=== PATIENT | female | born 1965 | race Caucasian/White ===

== ENCOUNTER 2019-11-04 06:00 | Outpatient (RCR) | payer MEDICARE, SELFPAY | END 2019-11-04 23:59 | disposition home or self-care (01) | LOC: SOT 06:00 | PROVIDERS: Family Provider Family Medicine; PCP Family Medicine; Referring Provider Family Medicine; Visit Provider Family Medicine | DX: M24.20 Disorder of ligament, unspecified site (principal); I67.89 Other cerebrovascular disease; Z99.3 Dependence on wheelchair | CPT/HCPCS: 97112; 97167 ==

== ENCOUNTER 2020-01-21 13:17 | Outpatient (CLI) | payer MEDICARE, SELFPAY ==
--- NOTE | 2020-01-21 13:25 | MM_ITS ---
WS: [id number] BILATERAL DIGITAL SCREENING MAMMOGRAPHY WITH CAD CLINICAL INFORMATION: SCREENING HISTORY: Screening mammogram. No current complaints. COMPARISON: None. TECHNIQUE: Bilateral CC and MLO views. FINDINGS: Scattered fibroglandular densities bilaterally. No suspicious focal mass, asymmetry, calcifications, or architectural distortion. No evidence of malignancy. 11 mm asymmetric density posterior depth left breast best seen on the CC view. Recommend spot compression views and ultrasound if persistent. Additional 13 mm asymmetric density posterior depth right breast best seen on the cc view is indeterm inate. Recommend spot compression views and ultrasound if persistent. MM/[place] [id number] IMPRESSION: BI-RADS: 0-Incomplete: Need additional imaging evaluation FOLLOW UP: Need Additional Imaging
== END 2020-01-21 13:18 | disposition home or self-care (01) ==
LOC: RADSHAW 13:17
PROVIDERS: Family Provider Family Medicine; PCP Family Medicine; Visit Provider Family Medicine
DX: Z12.31 Encounter for screening mammogram for malignant neoplasm of breast (principal)
CPT/HCPCS: 77067

== ENCOUNTER 2020-01-28 09:12 | Outpatient (CLI) | payer MEDICARE, SELFPAY ==
--- NOTE | 2020-01-28 09:34 | US_ITS ---
WS: [id number] Bilateral breast ultrasound, 01/28/2020 Clinical Data: BILAT ASYMMETRIES Comparison: Mammogram, 01/28/2020 Findings: The right breast was scanned in the medial aspect from 1:00 to 5:00. No masses are seen. Only normal breast tissue could be seen. The left breast was imaged in 6:00 to 8:00. Only a small cyst was imaged which measured 0.33 x 0.35 x 0.52 cm. Only normal breast tissue could be seen. There were no masses. US/US breast BI limited* [id number] Impression: 1. Negative bilateral breast ultrasound. 2. Recommend annual screening mammograms. BIRADS: 2-Benign FOLLOW UP: 1 Year Follow-up
--- NOTE | 2020-01-28 09:34 | MM_ITS ---
WS: [id number] Bilateral diagnostic digital mammogram, 01/28/2020 Clinical Data: BILAT ASYMMETRIES Comparison: 01/21/2020 Findings: Compression views of the right breast in the CC projection and ML view showed that the density seen o n the mammogram is not imaged. This probably represents asymmetric breast tissue. Compression views of the left breast in the CC projection and the ML view reveal a density with great est diameter 1.6 cm in the medial aspect of the left breast. This has a border with no spiculations. There are no associated calcifications. MM/[place] [id number] Impression: 1. Negative right breast with no definite nodule. 2. Small nodule with benign characteristics in the medial aspect of the left br east. 3. Bilateral breast ultrasound will be performed. BIRADS: 2-Benign FOLLOW UP: Need Additional Imaging The CAD furnace checker was used.
== END 2020-01-28 09:13 | disposition home or self-care (01) ==
LOC: RADSHAW 09:14
PROVIDERS: Family Provider Family Medicine; PCP Family Medicine; Visit Provider Nurse Practitioner Family
DX: N64.89 Other specified disorders of breast (principal)
CPT/HCPCS: 76642; 77066

== ENCOUNTER 2020-03-20 17:28 | Emergency (ER) | payer MEDICARE, SELFPAY ==
--- NOTE | 2020-03-20 17:40 | XR_ITS ---
WS: [id number] Portable AP upright chest, 03/20/2020 Clinical Data: AMS Comparison: Portable chest, 09/21/2019 Findings: No nodules, masses or effusions are seen. The heart is normal. The pulmonary vascularity is not increased. No pneumonia or pneumothorax is seen. There are orthopedic anchors in the greater tub erosity and inferior glenoid rim. XR/XR chest 1V portable [id number] Impression: Negative chest.
--- NOTE | 2020-03-20 17:41 | W.ED.NAVMDI ---
HPI - Nausea/Vomiting/Diarrhea General: Chief complaint: Abdominal Pain Stated complaint: N/V Time Seen by Provider: 03/20/20 17:29 Source: patient and EMS Mode of arrival: EMS Limitations: altered mental status History of Present Illness: HPI Narrative: Patient is a 55-year-old female who presents to ED today via EMS for a complaint of nausea and vomiting beginning today. Patient was treated with IV and ODT Zofran in route. Blood glucose by EMS was 250s. Patient has a history of a CVA with chronic left-sided deficits/non-ambulatory, hypertension, and diabetes. She tells me she has not been taking her medications as prescribed stating she just forgets to take them or does not want to take them. Patient reports some mild abdominal pain. She has not been running fevers. She has not noticed any changes in bowel movements. Patient is chronically incontinent of urine due to a neurogenic bladder following the CVA. She several months ago had a suprapubic catheter but this was removed. MD elicited complaint: nausea, vomiting and abdominal pain Onset (ago): hour(s) Description of vomiting: watery Associated nausea: Yes Associated abdominal pain: Yes Location of pain: Diffuse Associated symtoms: Reports nausea; Denies change in vision, chest pain, fatigue, headache(s), malaise, palpitations or syncope Review of Systems Const: Denies: fever(s), chills, body aches, fatigue or malaise Eyes: Denies: change in vision, blurry vision, photophobia, floaters or seeing flashes ENMT: Denies: throat pain, enlarged tonsils or odynophagia Card: Denies: chest pain, palpitations, irregular heart rhythm, edema, lightheadedness, syncope, pre-syncope or orthopnea Resp: Denies: dyspnea, productive cough, non-productive cough, hemoptysis or chest congestion GI: Reports: abdominal pain, nausea and vomiting; Denies: hematemesis, coffee ground emesis, heartburn or diarrhea : Reports: urinary incontinence (chronic); Denies: hematuria Musc: Denies: neck pain or back pain Neuro: Denies: headache(s) PFS ED PFSH: Medical History (Updated 03/20/20 @ 20:46 by LIBERTY Guadalupe) Acute lower UTI Neurogenic bladder Family History Father Cancer Lymphoma Mother CAD (coronary artery disease) Diabetes Chronic kidney disease (CKD) Social History Smoking and tobacco status: current every day smoker Alcohol intake: never Marital status: Current occupational status: disabled Physical Exam Const: COMMON NORMALS: patient oriented x3 and alert NUTRITIONAL APPEARANCE: obese ORIENTATION/CONSCIOUSNESS: Yes oriented to person, Yes oriented to place and Yes oriented to time OTHER: pt upon arrival appeared nauseated and lethargic; this improved greatly throughout her stay HENMT: COMMON NORMALS: normocephalic and atraumatic HEAD & SCALP: normocephalic and atraumatic Resp: COMMON NORMALS: normal respiratory effort and clear to auscultation bilaterally AUSCULTATION: clear to auscultation bilaterally Cardio: COMMON NORMALS: regular rate and regular rhythm RATE: regular rate RHYTHM: regular rhythm GI: COMMON NORMALS: Normal to inspection, nondistended, normoactive bowel sounds present, Soft to palpation, non-tender, No hepatosplenomegaly present and no masses PALPATION: Yes Soft to palpation and Yes No hepatosplenomegaly present Extremity: COMMON NORMALS: normal to inspection Neuro: JENNIFER COMA SCALE: document GCS findings [place] coma scale eye opening: Spontaneous [place] coma scale verbal response: Orientated [place] coma scale motor response: Obey commands [place] coma scale total score: 15 COMMON NORMALS: patient oriented x3 SENSORIUM/ORIENTATION: Yes alert, Yes oriented to person, Yes oriented to place and Yes oriented to time OTHER: chronic deficits from previous CVA Skin: COMMON NORMALS: no rashes or lesions noted GENERAL SKIN EXAM: no rashes or lesions noted Course Vital Signs: Vital signs: Vital Signs Temperature 97.6 F 03/20/20 18:04 Pulse Rate 89 03/20/20 21:41 Respiratory Rate 14 03/20/20 21:41 Blood Pressure 153/93 03/20/20 21:41 Pulse Oximetry 95 03/20/20 21:41 MDM - Nausea/Vomiting/Diarrhea MDM Narrative: Medical decision making narrative: Patient has not had any further episodes of vomiting during her stay after given IV Reglan. Upon arrival patient appeared very lethargic and nauseated. She initially was a very poor historian therefore and altered mental work-up was started. Patient CT head showing no acute findings. Patient's mental status greatly improved throughout her stay and is now able to provide a very thorough history. Lab work today shows mildly elevated BUN/Cr at 25/1.3. This is pretty close to patient's baseline as she has stage III chronic kidney disease. Glucose in the 270s again patient admittedly not taking her medications as she is supposed to. Her bicarb is normal and serum ketones negative. Initial troponin elevated however her delta was insignificant. She does have an obvious UTI on her UA. She was treated with IV Rocephin for this and will be treated with oral Ceftin at home. She has primary care follow-up this week for reevaluation. Strict return to ED precautions given. Lab Data: Labs: Lab Results 03/20/20 03/20/20 03/20/20 Range/Units 17:53 17:53 17:53 WBC 10.2 H (4.0-10.0) 10^3/ uL RBC 5.69 H (4.1-5.3) 10^6/u L Hgb 16.0 H (11.5-15.3) g/dL Hct 49.8 H (37.0-47.0) % MCV 87.5 (81-99) fL MCH 28.1 (28.0-34.0) pg MCHC 32.1 (30.0-36.0) g/dL RDW 13.0 (12.1-15.1) % Plt Count 297 (130-400) 10^3/c mm MPV 9.8 (7.4-10.4) fL Neut % (Auto) 82.9 % Lymph % (Auto) 11.1 % Rush % (Auto) 4.3 % Eos % (Auto) 0.3 % Baso % (Auto) 0.7 % Neut # (Auto) 8.4 H (1.8-7.7) 10^3/u L Lymph # (Auto) 1.1 (0.8-4.8) 10^3/u L Rush # (Auto) 0.4 (0.2-0.9) 10^3/u L Eos # (Auto) 0.0 (0.0-0.8) 10^3/u L Baso # (Auto) 0.1 (0.0-0.1) 10^3/u L Nucleated RBC % (a uto) 0 % Nucleated RBCs # 0.0 /100WBC Specimen Type Sample Site ABG pH (7.35-7.45) ABG pCO2 (35-45) mmHg ABG pO2 (80.0-100.0) mmH g ABG HCO3 (22-26) mmol/L ABG O2 Saturation ABG Base Excess (-2.0-2.0) mmol/ L Mathieu Test A-a O2 Gradient (5-10) mmHg Hematocrit (37-47) % Hgb O2 Saturation (95-100) % Carboxyhemoglobin (0.4-20.1) %THgb Methemoglobin (0.4-1.5) % Total Hemoglobin (12-16) g/dL Ionized Calcium (1.1-1.4) mmol/L O2 Delivery Device Cosmetology Educator ID Sodium 138 (136-145) mmol/L Potassium 4.6 (3.5-5.1) mmol/L Chloride 101 (98-107) mmol/L Carbon Dioxide 22 (22-29) mmol/L Anion Gap 19.6 H (5-19) BUN 25 H (6-20) mg/dL Creatinine 1.3 H (0.5-0.9) mg/dL GFR Calculation 42.4 L (90-130) mL/min Glucose 270 H (65-115) mg/dL Calculated Osmolal ity 292 (285-295) mOsm/k g Lactate 1.5 (0.5-2.2) mmol/L Calcium 9.8 (8.5-10.5) mg/dL Total Bilirubin 0.4 (0.15-1.2) mg/dL AST 15 (0-32) U/L ALT 14 (0-33) U/L Alkaline Phosphata se 85 (35-105) IU/L Troponin T Gen 5 n g/L (0-10) ng/mL Troponin T 120 Min clark's point (0-10) ng/mL Delta Troponin T (0-10) ABS# Total Protein 7.6 (6.6-8.7) g/dL Albumin 4.4 (3.5-5.2) g/dL Globulin 3.2 (1.3-4.6) g/dL Lipase 25 (13-60) U/L Urine Color (Yellow) Urine Appearance (CLEAR) Urine pH (5-7) Ur Specific Gravit y (1.005-1.030) Urine Protein (Negative) Urine Glucose (UA) (Normal) Urine Ketones (Negative) Urine Blood (Negative) Urine Nitrate (Negative) Urine Bilirubin (NEGATIVE) Urine Urobilinogen (Negative) mg/dL Ur Leukocyte Holly ase (Negative) Urine RBC (0-2) /hpf Urine WBC (0-5) /hpf Ur Squamous Epith Cells (0-5) Urine Bacteria (NONE) Urine Mucus Serum Ketones (Negative) 03/20/20 03/20/20 03/20/20 Range/Units 17:53 17:53 17:55 WBC (4.0-10.0) 10^3/ uL RBC (4.1-5.3) 10^6/u L Hgb (11.5-15.3) g/dL Hct (37.0-47.0) % MCV (81-99) fL MCH (28.0-34.0) pg MCHC (30.0-36.0) g/dL RDW (12.1-15.1) % Plt Count (130-400) 10^3/c mm MPV (7.4-10.4) fL Neut % (Auto) % Lymph % (Auto) % Rush % (Auto) % Eos % (Auto) % Baso % (Auto) % Neut # (Auto) (1.8-7.7) 10^3/u L Lymph # (Auto) (0.8-4.8) 10^3/u L Rush # (Auto) (0.2-0.9) 10^3/u L Eos # (Auto) (0.0-0.8) 10^3/u L Baso # (Auto) (0.0-0.1) 10^3/u L Nucleated RBC % (a uto) % Nucleated RBCs # /100WBC Specimen Type Arterial Sample Site Brachial, right ABG pH 7.33 L (7.35-7.45) ABG pCO2 44.5 (35-45) mmHg ABG pO2 63.3 L (80.0-100.0) mmH g ABG HCO3 23.2 (22-26) mmol/L ABG O2 Saturation 91.4 ABG Base Excess -3.0 L (-2.0-2.0) mmol/ L Mathieu Test Pos A-a O2 Gradient 29.7 H (5-10) mmHg Hematocrit 51.0 H (37-47) % Hgb O2 Saturation 89.5 L (95-100) % Carboxyhemoglobin 1.4 (0.4-20.1) %THgb Methemoglobin 0.7 (0.4-1.5) % Total Hemoglobin 16.7 H (12-16) g/dL Ionized Calcium 1.2 (1.1-1.4) mmol/L O2 Delivery Device Room air Cosmetology Educator ID [email or web address] Sodium 140.0 (136-145) mmol/L Potassium 4.7 (3.5-5.1) mmol/L Chloride (98-107) mmol/L Carbon Dioxide (22-29) mmol/L Anion Gap (5-19) BUN (6-20) mg/dL Creatinine (0.5-0.9) mg/dL GFR Calculation (90-130) mL/min Glucose 273.0 H (65-115) mg/dL Calculated Osmolal ity (285-295) mOsm/k g Lactate (0.5-2.2) mmol/L Calcium (8.5-10.5) mg/dL Total Bilirubin (0.15-1.2) mg/dL AST (0-32) U/L ALT (0-33) U/L Alkaline Phosphata se (35-105) IU/L Troponin T Gen 5 n g/L 27 H (0-10) ng/mL Troponin T 120 Min clark's point (0-10) ng/mL Delta Troponin T (0-10) ABS# Total Protein (6.6-8.7) g/dL Albumin (3.5-5.2) g/dL Globulin (1.3-4.6) g/dL Lipase (13-60) U/L Urine Color (Yellow) Urine Appearance (CLEAR) Urine pH (5-7) Ur Specific Gravit y (1.005-1.030) Urine Protein (Negative) Urine Glucose (UA) (Normal) Urine Ketones (Negative) Urine Blood (Negative) Urine Nitrate (Negative) Urine Bilirubin (NEGATIVE) Urine Urobilinogen (Negative) mg/dL Ur Leukocyte Holly ase (Negative) Urine RBC (0-2) /hpf Urine WBC (0-5) /hpf Ur Squamous Epith Cells (0-5) Urine Bacteria (NONE) Urine Mucus Serum Ketones Negative (Negative) 03/20/20 03/20/20 Range/Units 19:00 20:06 WBC (4.0-10.0) 10^3/ uL RBC (4.1-5.3) 10^6/u L Hgb (11.5-15.3) g/dL Hct (37.0-47.0) % MCV (81-99) fL MCH (28.0-34.0) pg MCHC (30.0-36.0) g/dL RDW (12.1-15.1) % Plt Count (130-400) 10^3/c mm MPV (7.4-10.4) fL Neut % (Auto) % Lymph % (Auto) % Rush % (Auto) % Eos % (Auto) % Baso % (Auto) % Neut # (Auto) (1.8-7.7) 10^3/u L Lymph # (Auto) (0.8-4.8) 10^3/u L Rush # (Auto) (0.2-0.9) 10^3/u L Eos # (Auto) (0.0-0.8) 10^3/u L Baso # (Auto) (0.0-0.1) 10^3/u L Nucleated RBC % (a uto) % Nucleated RBCs # /100WBC Specimen Type Sample Site ABG pH (7.35-7.45) ABG pCO2 (35-45) mmHg ABG pO2 (80.0-100.0) mmH g ABG HCO3 (22-26) mmol/L ABG O2 Saturation ABG Base Excess (-2.0-2.0) mmol/ L Mathieu Test A-a O2 Gradient (5-10) mmHg Hematocrit (37-47) % Hgb O2 Saturation (95-100) % Carboxyhemoglobin (0.4-20.1) %THgb Methemoglobin (0.4-1.5) % Total Hemoglobin (12-16) g/dL Ionized Calcium (1.1-1.4) mmol/L O2 Delivery Device Cosmetology Educator ID Sodium (136-145) mmol/L Potassium (3.5-5.1) mmol/L Chloride (98-107) mmol/L Carbon Dioxide (22-29) mmol/L Anion Gap (5-19) BUN (6-20) mg/dL Creatinine (0.5-0.9) mg/dL GFR Calculation (90-130) mL/min Glucose (65-115) mg/dL Calculated Osmolal ity (285-295) mOsm/k g Lactate (0.5-2.2) mmol/L Calcium (8.5-10.5) mg/dL Total Bilirubin (0.15-1.2) mg/dL AST (0-32) U/L ALT (0-33) U/L Alkaline Phosphata se (35-105) IU/L Troponin T Gen 5 n g/L (0-10) ng/mL Troponin T 120 Min clark's point 26.24 H (0-10) ng/mL Delta Troponin T -0.76 L (0-10) ABS# Total Protein (6.6-8.7) g/dL Albumin (3.5-5.2) g/dL Globulin (1.3-4.6) g/dL Lipase (13-60) U/L Urine Color Yellow (Yellow) Urine Appearance Cloudy (CLEAR) Urine pH 5 (5-7) Ur Specific Gravit y 1.020 (1.005-1.030) Urine Protein 2+ H (Negative) Urine Glucose (UA) 1+ (Normal) Urine Ketones 1+ H (Negative) Urine Blood 2+ H (Negative) Urine Nitrate Negative (Negative) Urine Bilirubin Neg (NEGATIVE) Urine Urobilinogen Norm (Negative) mg/dL Ur Leukocyte Holly ase 2+ H (Negative) Urine RBC 0-4 H (0-2) /hpf Urine WBC 40-55 H (0-5) /hpf Ur Squamous Epith Cells 5-10 H (0-5) Urine Bacteria 3+ H (NONE) Urine Mucus Trace Serum Ketones (Negative) Imaging Data^: CT Head: Radiologist's impression: [address] [place] [address] CT Scan Report Signed Patient: Erika Shen Unit #: [id number] : 1965 Age/Sex: 55 / F ADM Date: 03/20/20 Loc: ER Room/Bed: Attending Dr: Ordering Provider/Ordering MD: Latonia Shultz Date of Service: 03/20/20 Procedure(s): CT head wo con* [id number] Accession Number(s): [id number] Report Number: [id number] PROCEDURE INFORMATION: Exam: CT Head Without Contrast Exam date and time: 03/20/2020 6:12 PM Age: 55 years old Clinical indication: Altered mental status/memory loss; Confusion or disorientation; Patient HX: AMS - lethargy - n/v TECHNIQUE: Imaging protocol: Computed tomography of the head without contrast. Radiation optimization: All CT scans at this facility use at least one of these dose optimization techniques: automated exposure control; mA and/or kV adjustment per patient size (includes targeted exams where dose is matched to clinical indication); or iterative reconstruction. COMPARISON: CT head wo con* [id number] 09/07/2019 12:36 PM FINDINGS: Old-appearing lacunar infarction in each thalamus. There is moderate low density in the bilateral periventricular white matter which may represent chronic small vessel ischemic disease in the appropriate clinical setting. The possibility of superimposed acute infarctions cannot be excluded; consider MRI brain (including diffusion images) for further assessment if clinically warranted and if patient has no contraindication to MRI. There are prominent intracranial arterial calcifications. Ventricles do not appear significantly dilated. No depressed calvarial fracture is demonstrated. Visualized paranasal sinuses and mastoid air cells demonstrate no significant opacification. CT/CT head wo con* [id number] IMPRESSION: Probable chronic ischemic changes as discussed above. Total DLP: 915.46 mGy-cm Radiation Dose CTDIVOL = (mGy): DLP = 915.46 (mGy-cm) Dictated By: Jasmin Robin MD Signed By: Jasmin Robin MD Signed Date/Time: 03/20/201842 DD/ 41 CXR: My impression: NAD Discharge Plan Discharge Patient Disposition: Home, Self-Care Clinical Impression: Acute cystitis with hematuria, Neurogenic bladder Condition: Stable Prescriptions: New cefuroxime axetil 500 mg tablet 500 mg PO BID 10 Days Qty: 20 RF: 0 Zofran 4 mg tablet 4 mg PO Q6H PRN (Reason: nausea and vomiting) Qty: 20 RF: 0 No Action amlodipine [Norvasc] 10 mg tablet 10 mg PO QDAY RF: 0 baclofen 10 mg tablet 10 mg PO TID RF: 0 clopidogrel [Plavix] 75 mg tablet 75 mg PO QDAY RF: 0 dantrolene 25 mg capsule 100 mg PO BID RF: 0 escitalopram oxalate 20 mg tablet 20 mg PO QDAY RF: 0 metformin [Glucophage] 500 mg tablet 500 mg PO BID RF: 0 pravastatin 20 mg tablet 20 mg PO QDAY RF: 0 solifenacin [Vesicare] 5 mg tablet 5 mg PO QDAY RF: 0 fenofibrate nanocrystallized [Tricor] 48 mg tablet 48 mg PO QDAY RF: 0 topiramate [Topamax] 100 mg tablet 100 mg PO QDAY RF: 0 metoprolol succinate 50 mg tablet extended release 24 hr 50 mg PO BID RF: 0 Discharge Orders: Discharge Order (Routine); Ordered 03/20/20 Ordered By: Latonia Shultz Referrals: Erika Lopez MD [Primary Care Provider] - Patient Instructions: Urinary Tract Infection in Women (ED) Activity Restrictions/Additional Instructions: As discussed try taking the Zofran 15-20 minutes prior to taking your antibiotic dose to help keep it down. You need to return to the emergency department if you are not able to hold down your antibiotics due to repetitive episodes of vomiting, fevers greater than 100.4, generally feeling ill, or any other concerns you may have. Otherwise please follow-up with your PCP Dr. Lopez at your scheduled appointment this week. Please start taking your diabetes and high blood pressure medications like you are supposed to. Coding Level of Care Code ED Demand Planning Analyst for Ish Sawyer
[2020-03-20] MEDS: metoclopramide 5 mg/mL SDV 2 mL 10 MG IVP (17:59)
[2020-03-20 18:01] LABS: Basophils # 0.1 10^3/uL (0.0-0.1); Basophils % 0.7 %; Eosinophils % 0.3 %; Hematocrit 49.8 % (37.0-47.0); Lymphocytes # 1.1 10^3/uL (0.8-4.8); Lymphocytes % 11.1 %; Mean Corpuscular HGB Conc 32.1 g/dL (30.0-36.0); Mean Corpuscular Hemoglobin 28.1 pg (28.0-34.0); Mean Corpuscular Volume 87.5 fL (81-99); Mean Platelet Volume 9.8 fL (7.4-10.4); Monocytes # 0.4 10^3/uL (0.2-0.9); Monocytes % 4.3 %; Neutrophils # 8.4 10^3/uL (1.8-7.7); Neutrophils % 82.9 %; Nucleated Red Blood Cells % 0 %; Platelet Count 297 10^3/cmm (130-400); Red Blood Count 5.69 10^6/uL (4.1-5.3); White Blood Count 10.2 10^3/uL (4.0-10.0)
[2020-03-20] MEDS: metoprolol tartrate 1 mg/1 mL SDV 5 mL 5 MG IV (18:01)
[2020-03-20 18:04] VITALS: BP 194/106; PULSE 75; RESP 16; TEMP 36.4; O2SAT 94; BMI 30.2
[2020-03-20 18:08] LABS: ABG PCO2 44.5 mmHg (35-45); ABG PH Result 7.33 (7.35-7.45); Alveolar-Arterial Oxygen Gradi 29.7 mmHg (5-10); Blood Gas Allen Test Pos; Blood Gas Sample Site Brachial, right; Blood Gas Sample Type Arterial; Carboxyhemoglobin 1.4 %THgb (0.4-20.1); HCO3 ABG 23.2 mmol/L (22-26); HGB O2 Sat 89.5 % (95-100); Ionized Calcium Level - ABG 1.2 mmol/L (1.1-1.4); Methemoglobin 0.7 % (0.4-1.5); Oxygen Device ROOM AIR; Oxygen Saturation ABG 91.4; PO2 ABG 63.3 mmHg (80.0-100.0); Potassium Level - ABG 4.7 mmol/L (3.5-5.0); Total Hemoglobin 16.7 g/dL (12-16)
[2020-03-20 18:10] LABS: Ketone (Acetest) Serum Negative (Negative)
[2020-03-20 18:15] LABS: Lactate (Lactic Acid level) 1.5 mmol/L (0.5-2.2)
[2020-03-20 18:16] LABS: Alanine Aminotransferase 14 U/L (0-33); Albumin Level 4.4 g/dL (3.5-5.2); Alkaline Phosphatase 85 IU/L (35-105); Anion Gap 19.6 (5-19); Aspartate Amino Transferase 15 U/L (0-32); Blood Urea Nitrogen 25 mg/dL (6-20); Calcium 9.8 mg/dL (8.5-10.5); Carbon Dioxide 22 mmol/L (22-29); Chloride 101 mmol/L (98-107); Globulin 3.2 g/dL (1.3-4.6); Glomerular Filtration Rate 42.4 mL/min (90-130); Glucose 270 mg/dL (65-115); Lipase 25 U/L (13-60); Osmolality Calculated 292 mOsm/kg (285-295); Potassium 4.6 mmol/L (3.5-5.1); Sodium 138 mmol/L (136-145); Total Bilirubin 0.4 mg/dL (0.15-1.2); Total Protein 7.6 g/dL (6.6-8.7)
[2020-03-20 19:01] LABS: Troponin T (5th) Once 27 ng/mL (0-10)
[2020-03-20 19:03] VITALS: BP 185/98; PULSE 85; RESP 14; O2SAT 95
[2020-03-20] MEDS: insulin regular-human 100 units/1 mL 5 UNIT IVP (19:22)
[2020-03-20] MEDS: sodium chloride 0.9% 1,000 ML 999 ML IV (19:24)
[2020-03-20 19:54] LABS: Bilirubin Urine Neg (NEGATIVE); Blood Urine 2+ (Negative); Glucose Urine UA 1+ (Normal); Ketones Urine 1+ (Negative); Nitrate Urine Negative (Negative); Protein Urine 2+ (Negative); Urine Appearance Cloudy (CLEAR); Urine Color Yellow (Yellow); Urobilinogen Urine Norm (Negative); pH Urine 5 (5-7)
[2020-03-20 19:55] LABS: Add Urine Microscopic? YES; Leukocyte Esterase Urine 2+ (Negative)
[2020-03-20 19:56] LABS: Add Urine Culture? Yes; Bacteria Urine 3+; Mucus Urine TRACE; RBC Urine 0-4 /hpf (0-2); WBC Urine 40-55 /hpf (0-5)
[2020-03-20] MEDS: amlodipine 10 mg Tablet PO (20:03)
[2020-03-20 20:06] VITALS: BP 205/110; PULSE 81; RESP 20; O2SAT 94
[2020-03-20 20:25] LABS: Troponin 5 2HR 26.24 ng/mL (0-10)
[2020-03-20 20:39] LABS: Troponin 5 2HR Delta -0.76 ABS# (0-10)
[2020-03-20] MEDS: cefTRIAXone 1,000 MG in sodium chloride 0.9% (plus) 50 ML 100 MG IV (20:53)
[2020-03-20 20:57] VITALS: BP 209/114; PULSE 84; RESP 19; O2SAT 94
--- NOTE | 2020-03-20 21:11 | ECG_ITS ---
Measurements Intervals [place] Rate: 74 P: 40 ME: 174 QRS: -23 QRSD: 85 T: 23 QT: 410 QTc: 457 SINUS RHYTHM BORDERLINE LEFT AXIS DEVIATION [QRS AXIS < -20] MODERATE VOLTAGE CRITERIA FOR LVH, CONSIDER NORMAL VARIANT Compared to ECG 09/21/2019 23:03:20 T-wave abnormality no longer present Electronically Signed On 03-21-2020 20:22:39 CDT by Ernestine Toth M.D. [email or web address]
[2020-03-20] MEDS: hyDRALAzine 20 mg/mL INJ 1 mL 10 MG IVP (21:12)
[2020-03-20 21:41] VITALS: BP 153/93; PULSE 89; RESP 14; O2SAT 95
== END 2020-03-20 22:05 | disposition home or self-care (01) ==
PROVIDERS: Emergency Provider Physician Assistant; Family Provider Family Medicine; PCP Family Medicine
DX: N30.01 Acute cystitis with hematuria (principal); N31.9 Neuromuscular dysfunction of bladder, unspecified; Z79.02 Long term (current) use of antithrombotics/antiplatelets; Z79.84 Long term (current) use of oral hypoglycemic drugs; Z87.440 Personal history of urinary (tract) infections; F17.210 Nicotine dependence, cigarettes, uncomplicated
CPT/HCPCS: 12345; 36415; 36600; 70450; 71045; 80051; 80053; 81001; 82009; 82810; 83605; 83690; 83986; 84484; 85025; 87040; 87077; 87086; 87186; 87205; 93005; 96365; 96375; 99283; 99284; J0360; J0696; J1815; J2765; J3490; J7030

== ENCOUNTER 2020-10-12 16:18 | Inpatient (IN) | payer MEDICARE, SELFPAY ==
[2020-10-12] VITALS (11 sets, daily range): BP systolic 161–230; BP diastolic 100–138; PULSE 87–99; RESP 16–20; TEMP 36.6–37; O2SAT 94–97; BMI 30.2
--- NOTE | 2020-10-12 16:29 | CTR_ITS ---
PROCEDURE INFORMATION: Exam: CT Head Without Contrast Exam date and time: 10/12/2020 4:50 PM Age: 55 years old Clinical indication: Pain; Altered mental status/memory loss and dizziness and visual disturbance; Headache; Patient HX: HX of stroke; Additional info: AMS TECHNIQUE: Imaging protocol: Computed tomography of the head without contrast. Radiation optimization: All CT scans at this facility use at least one of these dose optimization techniques: automated exposure control; mA and/or kV adjustment per patient size (includes targeted exams where dose is matched to clinical indication); or iterative reconstruction. COMPARISON: CT head wo con* [id number] 03/20/2020 6:10 PM RADIATION DOSE METRICS: Total DLP (mGy-cm): 1070.47 FINDINGS: Brain: Old bilateral thalamic lacunar infarctions. Old tiny left lentiform nucleus lacunar infarction. Moderate small vessel ischemic disease with senile periventricular leukomalacia. No evidence of active or acute intracranial pathologic process, hemorrhage, or trauma. No mass effect. No midline shift. Empty sella turcica. Cerebral ventricles: No ventriculomegaly. Bones/joints: Unremarkable. No acute fracture. Paranasal sinuses: Visualized sinuses are unremarkable. No fluid levels. Mastoid air cells: Visualized mastoid air cells are well aerated. Soft tissues: Unremarkable. CT/CT head wo con* [id number] IMPRESSION: No evidence of active or acute intracranial pathologic process, hemorrhage, or trauma. Radiation Dose CTDIVOL = (mGy): DLP = 1070.47 (mGy-cm)
--- NOTE | 2020-10-12 16:29 | XRR_ITS ---
PROCEDURE INFORMATION: Exam: XR Chest, 1 View Exam date and time: 10/12/2020 4:45 PM Age: 55 years old Clinical indication: Cough and shortness of breath; Additional info: AMS TECHNIQUE: Imaging protocol: XR of the chest Views: 1 view. COMPARISON: CR XR chest 1V portable [id number] 03/20/2020 6:17 PM FINDINGS: Tubes, catheters and devices: Post surgical suture anchors at the right shoulder. Surgical foreshortening of the distal right clavicle. Lungs: Unremarkable. No consolidation. Pleural space: Unremarkable. No pleural effusion. No pneumothorax. Heart/Mediastinum: Stable heart size. Bones/joints: The 5th degenerative change of the spine. XR/XR chest 1V portable [id number] IMPRESSION: Stable chest without acute process.
--- NOTE | 2020-10-12 16:30 | ECG_ITS ---
[facility] Test Date: 2020-10-12 Pat Name: Erika Shen Department: Room: Gender: Female Supervisor General: : 1965 Requested By: Ariana Lucero Order Number: [id number] Anton MD: Gloria Lyles M.D. Measurements Intervals [place] Rate: 97 P: 33 KS: 168 QRS: -21 QRSD: 85 T: 54 QT: 360 QTc: 458 Interpretive Statements SINUS RHYTHM POSSIBLE LEFT ATRIAL ENLARGEMENT [-0.1mV P WAVE IN V1/V2] POSSIBLE LEFT VENTRICULAR HYPERTROPHY [VOLTAGE CRITERIA PLUS LAE OR QRS WIDENING] POSSIBLE ANTERIOR MYOCARDIAL INFARCTION [30 ms Q WAVE IN V3/V4, OR R < 0.2 mV IN V4], OF INDETERMINATE AGE Compared to ECG 03/20/2020 19:28:35 Myocardial infarct finding now present Electronically Signed On 10-12-2020 19:42:41 MARKETING DATABASE COORDINATOR by Gloria Lyles M.D. [id number]
--- NOTE | 2020-10-12 16:36 | ED_ITS ---
Documented by User: Ariana Lucero MD 10/12/20 17:11 HPI - Altered Mental Status General: Chief Complaint: Altered Mental Status Stated Complaint: AMS, DIZZY, DOUBLE VISION Time Seen by Provider: 10/12/20 16:25 Source: patient and EMS Mode of arrival: EMS Limitations: no limitations History of Present Illness: HPI narrative: 55-year-old female has had a history of stroke in the past and has deficits from previous stroke. 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 Patient states that she often wakes up in the morning with double vision. Family called EMS morning she woke up at 10 and had not seem quite right all day. Patient here is able answer all my questions appropriately knows her name where she is and the date. She states she has had double vision this morning that lasted longer than normal. She denies any slurred speech. She denies any increased weakness. Denies any worsening or improving factors. Associated symptoms: Deny depression Review of Systems Const: Denies: fever(s), chills, body aches or change in appetite Eyes: Reports: blurry vision ENMT: Denies: throat pain or dental pain Card: Denies: chest pain Resp: Denies: dyspnea GI: Denies: abdominal pain, nausea, vomiting or diarrhea : Denies: dysuria Musc: Denies: neck pain or back pain Skin/Breast: Denies: rash Neuro: Denies: headache(s) Psych: Denies: depression Sterling/Lymph: Denies: easy bruising All/Imm: Denies: urticaria PFSH ED PFSH: Medical History (Updated 10/12/20 @ 20:51 by Falguni Lakhani) Acute depression Acute lower UTI CVA (cerebral vascular accident) Neurogenic bladder Renal failure Suprapubic catheter Type 2 diabetes mellitus without complications Surgical History (Updated 10/12/20 @ 20:40 by Hillary Silva MD) H/O detached retina repair H/O oral surgery S/P appendectomy S/P cataract surgery S/P cholecystectomy S/P knee surgery S/P shoulder surgery Family History Father Cancer Lymphoma Mother CAD (coronary artery disease) Diabetes Chronic kidney disease (CKD) Social History Smoking and tobacco status: current every day smoker Alcohol intake: never Marital status: Current occupational status: disabled Course Vital Signs: Vital signs: Vital Signs Temperature 98.4 F 10/12/20 16:18 Pulse Rate 97 10/12/20 20:13 Respiratory Rate 18 10/12/20 20:13 Blood Pressure 208/100 10/12/20 20:13 Pulse Oximetry 95 10/12/20 20:13 MDM - Altered Mental Status Lab Data: Labs: Lab Results 10/12/20 10/12/20 10/12/20 Range/Units 16:23 16:23 17:04 WBC 7.3 (4.0-10.0) 10^3/ uL RBC 4.99 (4.1-5.3) 10^6/u L Hgb 14.0 (11.5-15.3) g/dL Hct 41.9 (37.0-47.0) % MCV 84.0 (81-99) fL MCH 28.1 (28.0-34.0) pg MCHC 33.4 (30.0-36.0) g/dL RDW 12.7 (12.1-15.1) % Plt Count 289 (130-400) 10^3/c mm MPV 9.8 (7.4-10.4) fL Neut % (Auto) 66.1 % Lymph % (Auto) 24.8 % [place] % (Auto) 5.4 % Eos % (Auto) 2.2 % Baso % (Auto) 0.8 % Neut # (Auto) 4.79 (1.8-7.7) 10^3/u L Lymph # (Auto) 1.8 (0.8-4.8) 10^3/u L [place] # (Auto) 0.4 (0.2-0.9) 10^3/u L Eos # (Auto) 0.2 (0.0-0.8) 10^3/u L Baso # (Auto) 0.1 (0.0-0.1) 10^3/u L Nucleated RBC % (a uto) 0 % Nucleated RBCs # 0.0 /100WBC Specimen Type Arterial Sample Site left radial ABG pH 7.37 (7.35-7.45) ABG pCO2 39.5 (35-45) mmHg ABG pO2 81.8 (80.0-100.0) mmH g ABG HCO3 22.6 (22-26) mmol/L ABG Base Excess -2.5 L (-2.0-2.0) mmol/ L Mathieu Test Pos Hematocrit 43.3 (37-47) % O2 Delivery Device Ra FiO2 21.0 % Mortgage Processing Manager ID Glc Sodium 133 L (136-145) mmol/L Potassium 4.8 (3.5-5.1) mmol/L Chloride 99 (98-107) mmol/L Carbon Dioxide 22 (22-29) mmol/L Anion Gap 16.8 (5-19) BUN 36 H (6-20) mg/dL Creatinine 1.7 H (0.5-0.9) mg/dL GFR Calculation 31.1 L (90-130) mL/min Glucose 429 H (65-115) mg/dL Calculated Osmolal ity 303 H (285-295) mOsm/k g Calcium 8.9 (8.5-10.5) mg/dL Magnesium 1.7 (1.7-2.3) mg/dL Total Bilirubin 0.3 (0.15-1.2) mg/dL AST 9 (0-32) U/L ALT 11 (0-33) U/L Alkaline Phosphata se 124 H (35-105) IU/L Total Protein 6.0 L (6.6-8.7) g/dL Albumin 3.5 (3.5-5.2) g/dL Globulin 2.5 (1.3-4.6) g/dL Urine Color (Yellow) Urine Appearance (CLEAR) Urine pH (5-7) Ur Specific Gravit y (1.005-1.030) Urine Protein (Negative) Urine Glucose (UA) (Normal) Urine Ketones (Negative) Urine Blood (Negative) Urine Nitrate (Negative) Urine Bilirubin (Negative) Urine Urobilinogen (Negative) mg/dL Ur Leukocyte Holly ase (Negative) Urine RBC (0-2) /hpf Urine WBC (0-5) /hpf Ur Squamous Epith Cells (0-5) /hpf Amorphous Sediment /hpf Urine Bacteria (NONE) /hpf Ethyl Alcohol < 10 (0-10) mg/dL 10/12/20 Range/Units 17:15 WBC (4.0-10.0) 10^3/ uL RBC (4.1-5.3) 10^6/u L Hgb (11.5-15.3) g/dL Hct (37.0-47.0) % MCV (81-99) fL MCH (28.0-34.0) pg MCHC (30.0-36.0) g/dL RDW (12.1-15.1) % Plt Count (130-400) 10^3/c mm MPV (7.4-10.4) fL Neut % (Auto) % Lymph % (Auto) % [place] % (Auto) % Eos % (Auto) % Baso % (Auto) % Neut # (Auto) (1.8-7.7) 10^3/u L Lymph # (Auto) (0.8-4.8) 10^3/u L [place] # (Auto) (0.2-0.9) 10^3/u L Eos # (Auto) (0.0-0.8) 10^3/u L Baso # (Auto) (0.0-0.1) 10^3/u L Nucleated RBC % (a uto) % Nucleated RBCs # /100WBC Specimen Type Sample Site ABG pH (7.35-7.45) ABG pCO2 (35-45) mmHg ABG pO2 (80.0-100.0) mmH g ABG HCO3 (22-26) mmol/L ABG Base Excess (-2.0-2.0) mmol/ L Mathieu Test Hematocrit (37-47) % O2 Delivery Device FiO2 % Mortgage Processing Manager ID Sodium (136-145) mmol/L Potassium (3.5-5.1) mmol/L Chloride (98-107) mmol/L Carbon Dioxide (22-29) mmol/L Anion Gap (5-19) BUN (6-20) mg/dL Creatinine (0.5-0.9) mg/dL GFR Calculation (90-130) mL/min Glucose (65-115) mg/dL Calculated Osmolal ity (285-295) mOsm/k g Calcium (8.5-10.5) mg/dL Magnesium (1.7-2.3) mg/dL Total Bilirubin (0.15-1.2) mg/dL AST (0-32) U/L ALT (0-33) U/L Alkaline Phosphata se (35-105) IU/L Total Protein (6.6-8.7) g/dL Albumin (3.5-5.2) g/dL Globulin (1.3-4.6) g/dL Urine Color Yellow (Yellow) Urine Appearance Hazy A (CLEAR) Urine pH 5 (5-7) Ur Specific Gravit y 1.015 (1.005-1.030) Urine Protein 2+ H (Negative) Urine Glucose (UA) 4+ H (Normal) Urine Ketones Negative (Negative) Urine Blood Neg (Negative) Urine Nitrate Positive H (Negative) Urine Bilirubin Neg (Negative) Urine Urobilinogen Norm (Negative) mg/dL Ur Leukocyte Holly ase 1+ H (Negative) Urine RBC None (0-2) /hpf Urine WBC 15-25 H (0-5) /hpf Ur Squamous Epith Cells 5-10 H (0-5) /hpf Amorphous Sediment 1+ /hpf Urine Bacteria 4+ H (NONE) /hpf Ethyl Alcohol (0-10) mg/dL EKG Data^: EKG 1: Attestation: I personally reviewed and interpreted this EKG as follows: EKG interpretation date: 10/12/20 EKG interpretation time: 16:27 Interpretation: nsr hr [address] or t wave abnormalities qrs 85 qtc 414 Discharge Plan Discharge Patient Disposition: Placed in Observation Clinical Impression: Altered mental status Condition: Stable Prescriptions: No Action amlodipine [Norvasc] 10 mg tablet 10 mg PO DAILY@1400 RF: 0 clopidogrel [Plavix] 75 mg tablet 75 mg PO DAILY@1400 RF: 0 escitalopram oxalate 20 mg tablet 20 mg PO DAILY@1399 RF: 0 pravastatin 20 mg tablet 80 mg PO DAILY@1400 RF: 0 solifenacin [Vesicare] 5 mg tablet 5 mg PO DAILY@1400 RF: 0 fenofibrate nanocrystallized [Tricor] 48 mg tablet 48 mg PO DAILY@1400 RF: 0 topiramate [Topamax] 100 mg tablet 100 mg PO DAILY@1400 RF: 0 metoprolol succinate 50 mg tablet extended release 24 hr 50 mg PO BID RF: 0 cyclobenzaprine 10 mg tablet 10 mg PO TID PRN (Reason: muscle spasms) RF: 0 ondansetron HCl [Zofran] 4 mg tablet 4 mg PO Q6H PRN (Reason: nausea and vomiting) Qty: 20 RF: 0 Sign Out Sign Out Data: Patient Sign Out occurred on 10/12/20 at 18:16. Patient's care was discussed, and care was transferred from to Falguni Lakhani. Coding Level of Care Code ED Affiliate Marketing Specialist for Chg [employer] Documented by User: Falguni Lakhani 10/12/20 20:51 HPI - Altered Mental Status General: Chief Complaint: Altered Mental Status Stated Complaint: AMS, DIZZY, DOUBLE VISION Time Seen by Provider: 10/12/20 16:25 PFSH ED PFSH: Medical History (Updated 10/12/20 @ 20:51 by Falguni Lakhani) Acute depression Acute lower UTI CVA (cerebral vascular accident) Neurogenic bladder Renal failure Suprapubic catheter Type 2 diabetes mellitus without complications Surgical History (Updated 10/12/20 @ 20:40 by Hillary Silva MD) H/O detached retina repair H/O oral surgery S/P appendectomy S/P cataract surgery S/P cholecystectomy S/P knee surgery S/P shoulder surgery Family History Father Cancer Lymphoma Mother CAD (coronary artery disease) Diabetes Chronic kidney disease (CKD) Social History Smoking and tobacco status: current every day smoker Alcohol intake: never Marital status: Current occupational status: disabled Course Vital Signs: Vital signs: Vital Signs Temperature 98.4 F 10/12/20 16:18 Pulse Rate 97 10/12/20 20:13 Respiratory Rate 18 10/12/20 20:13 Blood Pressure 208/100 10/12/20 20:13 Pulse Oximetry 95 10/12/20 20:13 MDM - Altered Mental Status MDM Narrative: Medical decision making narrative: 1829 -Case turned over to me at change of shift from Dr. Lucero. Please see his note for his history, physical exam and medical decision-making notes. To me the patient has no complaints other than knee pain at this time. She appears alert to person, place, time and situation. Patient states that she does get headaches and have double vision sometimes upon awakening and has for quite some time. At this point her CT of her head is normal, her EKG is normal there is a urinalysis that looks infected but there is mild contamination with this. Patient also compla ins of right-sided numbness and continued double vision. Patient is concerned she may have had another stroke. Patient is adamant that the symptoms have been present upon awakening and have never resolved. Allowed a CTA of the head and neck as well to her evaluation. 2048 -patient symptoms continue. She has declined any medicine for her headache. If this is possibly a new stroke she complains of right-sided numbness I do not want to treat her blood pressure at this time. Patient was a wake-up stroke if that is indeed the diagnosis so she would not be a TPA candidate and her CT of the head and neck does not show any sign of intervene able clot. The patient had possible pneumonitis findings on the CT of the head and neck so I have placed a Covid test as well. Patient denies any pulmonary complaints. Overall the patient is disheveled and appears not very well For her. She is very dirty and do not believe there caring for her adequately at home. I shared this and all the case with Dr. Silva he agrees to go admit the patient for further evaluation and care and will move forward from here. Lab Data: Attestation: I reviewed the patient's lab results. Labs: Lab Results 10/12/20 10/12/20 10/12/20 Range/Units 16:23 16:23 17:04 WBC 7.3 (4.0-10.0) 10^3/ uL RBC 4.99 (4.1-5.3) 10^6/u L Hgb 14.0 (11.5-15.3) g/dL Hct 41.9 (37.0-47.0) % MCV 84.0 (81-99) fL MCH 28.1 (28.0-34.0) pg MCHC 33.4 (30.0-36.0) g/dL RDW 12.7 (12.1-15.1) % Plt Count 289 (130-400) 10^3/c mm MPV 9.8 (7.4-10.4) fL Neut % (Auto) 66.1 % Lymph % (Auto) 24.8 % [place] % (Auto) 5.4 % Eos % (Auto) 2.2 % Baso % (Auto) 0.8 % Neut # (Auto) 4.79 (1.8-7.7) 10^3/u L Lymph # (Auto) 1.8 (0.8-4.8) 10^3/u L [place] # (Auto) 0.4 (0.2-0.9) 10^3/u L Eos # (Auto) 0.2 (0.0-0.8) 10^3/u L Baso # (Auto) 0.1 (0.0-0.1) 10^3/u L Nucleated RBC % (a uto) 0 % Nucleated RBCs # 0.0 /100WBC Specimen Type Arterial Sample Site left radial ABG pH 7.37 (7.35-7.45) ABG pCO2 39.5 (35-45) mmHg ABG pO2 81.8 (80.0-100.0) mmH g ABG HCO3 22.6 (22-26) mmol/L ABG Base Excess -2.5 L (-2.0-2.0) mmol/ L Mathieu Test Pos Hematocrit 43.3 (37-47) % O2 Delivery Device Ra FiO2 21.0 % Mortgage Processing Manager ID Glc Sodium 133 L (136-145) mmol/L Potassium 4.8 (3.5-5.1) mmol/L Chloride 99 (98-107) mmol/L Carbon Dioxide 22 (22-29) mmol/L Anion Gap 16.8 (5-19) BUN 36 H (6-20) mg/dL Creatinine 1.7 H (0.5-0.9) mg/dL GFR Calculation 31.1 L (90-130) mL/min Glucose 429 H (65-115) mg/dL Calculated Osmolal ity 303 H (285-295) mOsm/k g Calcium 8.9 (8.5-10.5) mg/dL Magnesium 1.7 (1.7-2.3) mg/dL Total Bilirubin 0.3 (0.15-1.2) mg/dL AST 9 (0-32) U/L ALT 11 (0-33) U/L Alkaline Phosphata se 124 H (35-105) IU/L Total Protein 6.0 L (6.6-8.7) g/dL Albumin 3.5 (3.5-5.2) g/dL Globulin 2.5 (1.3-4.6) g/dL Urine Color (Yellow) Urine Appearance (CLEAR) Urine pH (5-7) Ur Specific Gravit y (1.005-1.030) Urine Protein (Negative) Urine Glucose (UA) (Normal) Urine Ketones (Negative) Urine Blood (Negative) Urine Nitrate (Negative) Urine Bilirubin (Negative) Urine Urobilinogen (Negative) mg/dL Ur Leukocyte Holly ase (Negative) Urine RBC (0-2) /hpf Urine WBC (0-5) /hpf Ur Squamous Epith Cells (0-5) /hpf Amorphous Sediment /hpf Urine Bacteria (NONE) /hpf Ethyl Alcohol < 10 (0-10) mg/dL 10/12/20 Range/Units 17:15 WBC (4.0-10.0) 10^3/ uL RBC (4.1-5.3) 10^6/u L Hgb (11.5-15.3) g/dL Hct (37.0-47.0) % MCV (81-99) fL MCH (28.0-34.0) pg MCHC (30.0-36.0) g/dL RDW (12.1-15.1) % Plt Count (130-400) 10^3/c mm MPV (7.4-10.4) fL Neut % (Auto) % Lymph % (Auto) % [place] % (Auto) % Eos % (Auto) % Baso % (Auto) % Neut # (Auto) (1.8-7.7) 10^3/u L Lymph # (Auto) (0.8-4.8) 10^3/u L [place] # (Auto) (0.2-0.9) 10^3/u L Eos # (Auto) (0.0-0.8) 10^3/u L Baso # (Auto) (0.0-0.1) 10^3/u L Nucleated RBC % (a uto) % Nucleated RBCs # /100WBC Specimen Type Sample Site ABG pH (7.35-7.45) ABG pCO2 (35-45) mmHg ABG pO2 (80.0-100.0) mmH g ABG HCO3 (22-26) mmol/L ABG Base Excess (-2.0-2.0) mmol/ L Mathieu Test Hematocrit (37-47) % O2 Delivery Device FiO2 % Mortgage Processing Manager ID Sodium (136-145) mmol/L Potassium (3.5-5.1) mmol/L Chloride (98-107) mmol/L Carbon Dioxide (22-29) mmol/L Anion Gap (5-19) BUN (6-20) mg/dL Creatinine (0.5-0.9) mg/dL GFR Calculation (90-130) mL/min Glucose (65-115) mg/dL Calculated Osmolal ity (285-295) mOsm/k g Calcium (8.5-10.5) mg/dL Magnesium (1.7-2.3) mg/dL Total Bilirubin (0.15-1.2) mg/dL AST (0-32) U/L ALT (0-33) U/L Alkaline Phosphata se (35-105) IU/L Total Protein (6.6-8.7) g/dL Albumin (3.5-5.2) g/dL Globulin (1.3-4.6) g/dL Urine Color Yellow (Yellow) Urine Appearance Hazy A (CLEAR) Urine pH 5 (5-7) Ur Specific Gravit y 1.015 (1.005-1.030) Urine Protein 2+ H (Negative) Urine Glucose (UA) 4+ H (Normal) Urine Ketones Negative (Negative) Urine Blood Neg (Negative) Urine Nitrate Positive H (Negative) Urine Bilirubin Neg (Negative) Urine Urobilinogen Norm (Negative) mg/dL Ur Leukocyte Holly ase 1+ H (Negative) Urine RBC None (0-2) /hpf Urine WBC 15-25 H (0-5) /hpf Ur Squamous Epith Cells 5-10 H (0-5) /hpf Amorphous Sediment 1+ /hpf Urine Bacteria 4+ H (NONE) /hpf Ethyl Alcohol (0-10) mg/dL Imaging Data^: CXR: Attestation: I personally reviewed and interpreted this imaging study as follows: My impression: No acute cardiopulmonary findings. CT Head: Radiologist's impression: [facility] [address] [address] Scan Report Signed Patient: Jennifer Shen #: [id number] : 1965Acct#:[id number] Age/Sex: 55 / FADM Date: 10/12/20 Loc: ERRoom/Bed: Attending Dr: Ordering Provider/Ordering MD: Ariana Lucero MD Date of Service: 10/12/20 Procedure(s): CT head wo con* [id number] Accession Number(s): [id number] Report Number: [id number] PROCEDURE INFORMATION: Exam: CT Head Without Contrast Exam date and time: 10/12/2020 4:50 PM Age: 55 years old Clinical indication: Pain; Altered mental status/memory loss and dizziness and visual disturbance; Headache; Patient HX: HX of stroke; Additional info: AMS TECHNIQUE: Imaging protocol: Computed tomography of the head without contrast. Radiation optimization: All CT scans at this facility use at least one of these dose optimization techniques: automated exposure control; mA and/or kV adjustment per patient size (includes targeted exams where dose is matched to clinical indication); or iterative reconstruction. COMPARISON: CT head wo con* [id number] 03/20/2020 6:10 PM RADIATION DOSE METRICS: Total DLP (mGy-cm): 1070.47 FINDINGS: Brain: Old bilateral thalamic lacunar infarctions. Old tiny left lentiform nucleus lacunar infarction. Moderate small vessel ischemic disease with senile periventricular leukomalacia. No evidence of active or acute intracranial pathologic process, hemorrhage, or trauma. No mass effect. No midline shift. Empty sella turcica. Cerebral ventricles: No ventriculomegaly. Bones/joints: Unremarkable. No acute fracture. Paranasal sinuses: Visualized sinuses are unremarkable. No fluid levels. Mastoid air cells: Visualized mastoid air cells are well aerated. Soft tissues: Unremarkable. CT/CT head wo con* [id number] IMPRESSION: No evidence of active or acute intracranial pathologic process, hemorrhage, or trauma. Radiation Dose CTDIVOL = (mGy): DLP = 1070.47 (mGy-cm) Dictated By:Feliciano León Signed By:Ruiz León Date/Time:10/12/201837 DD/ 36 CTA Head and Neck: [facility]'s [facility]: [facility] [address] [place] [address] CT Scan Report Signed Patient: Jennifer Shen #: [id number] : 1965Acct#:[id number] Age/Sex: 55 / FADM Date: 10/12/20 Loc: ERRoom/Bed: Attending Dr: Ordering Provider/Ordering MD: Falguni Lakhani DO Date of Service: 10/12/20 Procedure(s): CT angio headneck* [id number] Accession Number(s): [id number] Report Number: [id number] PROCEDURE INFORMATION: Exam: CT Angiography Head With Contrast Exam date and time: 10/12/2020 7:55 PM Age: 55 years old Clinical indication: Patient HX: RT side weakness. HX of stroke; Additional info: CVA symptoms TECHNIQUE: Imaging protocol: Computed tomography angiography of the head with intravenous contrast. 3D rendering (Not supervised by radiologist): MIP and/or 3D reconstructed images were created by the technologist. Radiation optimization: All CT scans at this facility use at least one of these dose optimization techniques: automated exposure control; mA and/or kV adjustment per patient size (includes targeted exams where dose is matched to clinical indication); or iterative reconstruction. Contrast material: VISI 320; Contrast volume: 95 ml; Contrast route: INTRAVENOUS (IV); COMPARISON: CT head wo con* [id number] 10/12/2020 6:17 PM RADIATION DOSE METRICS: Total DLP (mGy-cm): 3143.37 FINDINGS: ANTERIOR CIRCULATION: Right internal carotid artery: Cerebral arteriosclerosis of the internal carotid artery terminus without visible evidence of hemodynamically significant stenosis. Intracranial segment is patent with no significant stenosis. No aneurysm. Right middle cerebral artery: Unremarkable. No occlusion or significant stenosis. No aneurysm. Right anterior cerebral artery: Unremarkable. No occlusion or significant stenosis. No aneurysm. Left internal carotid artery: Cerebral arteriosclerosis of the internal carotid artery terminus without visible evidence of hemodynamically significant stenosis. Intracranial segment is patent with no significant stenosis. No aneurysm. Left middle cerebral artery: Unremarkable. No occlusion or significant stenosis. No aneurysm. Left anterior cerebral artery: Unremarkable. No occlusion or significant stenosis. No aneurysm. POSTERIOR CIRCULATION: Right vertebral artery: Unremarkable. No occlusion or significant stenosis. No aneurysm. Left vertebral artery: Unremarkable. No occlusion or significant stenosis. No aneurysm. Basilar artery: Unremarkable. No occlusion or significant stenosis. No aneurysm. Right posterior cerebral artery: Unremarkable. No occlusion or significant stenosis. No aneurysm. Left posterior cerebral artery: origin. No occlusion or significant stenosis. No aneurysm. Brain: No definite mass, mass effect, or midline shift. Cerebral ventricles: No ventriculomegaly. Bones/joints: Unremarkable. No acute fracture. Soft tissues: Unremarkable. IMPRESSION: 1. No large vessel stenosis or occlusion. 2. Cerebral arteriosclerosis of the bilateral internal carotid artery terminus without visible evidence of hemodynamically significant stenosis. 3. origin of the left posterior cerebral artery. Normal anatomical variant. PROCEDURE INFORMATION: Exam: CT Angiography Neck With Contrast Exam date and time: 10/12/2020 7:55 PM Age: 55 years old Clinical indication: Patient HX: RT side weakness. HX of stroke; Additional info: CVA symptoms TECHNIQUE: Imaging protocol: Computed tomography angiography of the neck with intravenous contrast. 3D rendering (Not supervised by radiologist): MIP and/or 3D reconstructed images were created by the technologist. Radiation optimization: All CT scans at this facility use at least one of these dose optimization techniques: automated exposure control; mA and/or kV adjustment per patient size (includes targeted exams where dose is matched to clinical indication); or iterative reconstruction. Contrast material: VISI 320; Contrast volume: 95 ml; Contrast route: INTRAVENOUS (IV); COMPARISON: CT head wo con* [id number] 10/12/2020 6:17 PM RADIATION DOSE METRICS: Total DLP (mGy-cm): 3143.37 FINDINGS: Right common carotid artery: No stenosis. No dissection or occlusion. Right internal carotid artery: No stenosis of the extracranial segment. No dissection or occlusion. Right external carotid artery: No occlusion or stenosis of the origin. Right vertebral artery: No stenosis. No dissection or occlusion. Left common carotid artery: No stenosis. No dissection or occlusion. Left internal carotid artery: No stenosis of the extracranial segment. No dissection or occlusion. Left external carotid artery: No occlusion or stenosis of the origin. Left vertebral artery: No stenosis. No dissection or occlusion. Bones/joints: No acute fracture. Soft tissues: Unremarkable. No significant soft tissue swelling. Lungs: Small patchy ground-glass interstitial lung disease of the visualized bilateral upper lobes which could reflect active interstitial pneumonitis. CT/CT angio headneck* [id number] IMPRESSION: 1. No stenosis or occlusion. 2. Minimal arteriosclerosis of the common carotid artery bulbs. 3. Small patchy ground-glass interstitial lung disease of the visualized bilateral upper lobes which could reflect active interstitial pneumonitis. REFERENCES: NASCET CRITERIA. The degree of internal carotid artery stenosis is based on NASCET criteria. Normal is no stenosis. Mild is less than 50% stenosis. Moderate is 50-69% stenosis. Severe is 70% to 99% stenosis. Total occlusion is no detectable patent lumen. Radiation Dose CTDIVOL = (mGy): DLP = 3143.37~3143.37 (mGy-cm) Dictated By:Feliciano León Signed By:Feliciano LeónSignindiana Date/Time:10/12/202027 DD/ 24 EKG Data^: EKG 1: Attestation: I personally reviewed and interpreted this EKG as follows: EKG interpretation date: 10/12/20 EKG interpretation time: 18:47 Interpretation: Normal sinus rhythm at ninety-seven beats a minute, left axis deviation, left anterior fascicular block, normal QTC, no acute ST-T wave changes. Discharge Plan Discharge Patient Disposition: Placed in Observation Clinical Impression: Altered mental status Condition: Stable Prescriptions: No Action amlodipine [Norvasc] 10 mg tablet 10 mg PO DAILY@1400 RF: 0 clopidogrel [Plavix] 75 mg tablet 75 mg PO DAILY@1399 RF: 0 escitalopram oxalate 20 mg tablet 20 mg PO DAILY@1399 RF: 0 pravastatin 20 mg tablet 80 mg PO DAILY@1400 RF: 0 solifenacin [Vesicare] 5 mg tablet 5 mg PO DAILY@1399 RF: 0 fenofibrate nanocrystallized [Tricor] 48 mg tablet 48 mg PO DAILY@1399 RF: 0 topiramate [Topamax] 100 mg tablet 100 mg PO DAILY@1400 RF: 0 metoprolol succinate 50 mg tablet extended release 24 hr 50 mg PO BID RF: 0 cyclobenzaprine 10 mg tablet 10 mg PO TID PRN (Reason: muscle spasms) RF: 0 ondansetron HCl [Zofran] 4 mg tablet 4 mg PO Q6H PRN (Reason: nausea and vomiting) Qty: 20 RF: 0 Sign Out Sign Out Data: Patient Sign Out occurred on 10/12/20 at 18:16. Patient's care was discussed, and care was transferred from to Falguni Lakhani. Coding Level of Care Code ED Affiliate Marketing Specialist for [facility]yer
[2020-10-12] MEDS: sodium chloride 0.9% 1,000 ML 999 ML IV ×2 (16:56→18:48)
[2020-10-12 17:01] LABS: Basophils # 0.1 10^3/uL (0.0-0.1); Basophils % 0.8 %; Eosinophils # 0.2 10^3/uL (0.0-0.8); Eosinophils % 2.2 %; Hematocrit 41.9 % (37.0-47.0); Lymphocytes # 1.8 10^3/uL (0.8-4.8); Lymphocytes % 24.8 %; Mean Corpuscular HGB Conc 33.4 g/dL (30.0-36.0); Mean Corpuscular Hemoglobin 28.1 pg (28.0-34.0); Mean Platelet Volume 9.8 fL (7.4-10.4); Monocytes # 0.4 10^3/uL (0.2-0.9); Monocytes % 5.4 %; Neutrophils # 4.79 10^3/uL (1.8-7.7); Neutrophils % 66.1 %; Nucleated Red Blood Cells % 0 %; Platelet Count 289 10^3/cmm (130-400); Red Blood Count 4.99 10^6/uL (4.1-5.3); Red Cell Distribution Width 12.7 % (12.1-15.1); White Blood Count 7.3 10^3/uL (4.0-10.0)
[2020-10-12 17:15] LABS: ABG PCO2 39.5 mmHg (35-45); ABG PH Result 7.37 (7.35-7.45); HCO3 ABG 22.6 mmol/L (22-26); PO2 ABG 81.8 mmHg (80.0-100.0)
[2020-10-12 17:16] LABS: Arterial Blood Gas Hematocrit 43.3 % (37-47); Base Excess ABG -2.5 mmol/L (-2.0-2.0); Blood Gas Allen Test POS; Blood Gas Operator Identificat GLC; Blood Gas Sample Site left radial; Blood Gas Sample Type Arterial; Oxygen Device RA
[2020-10-12 17:30] LABS: Alanine Aminotransferase 11 U/L (0-33); Albumin Level 3.5 g/dL (3.5-5.2); Alkaline Phosphatase 124 IU/L (35-105); Anion Gap 16.8 (5-19); Aspartate Amino Transferase 9 U/L (0-32); Blood Urea Nitrogen 36 mg/dL (6-20); Calcium 8.9 mg/dL (8.5-10.5); Carbon Dioxide 22 mmol/L (22-29); Chloride 99 mmol/L (98-107); Globulin 2.5 g/dL (1.3-4.6); Glomerular Filtration Rate 31.1 mL/min (90-130); Glucose 429 mg/dL (65-115); Magnesium 1.7 mg/dL (1.7-2.3); Osmolality Calculated 303 mOsm/kg (285-295); Potassium 4.8 mmol/L (3.5-5.1); Sodium 133 mmol/L (136-145); Total Bilirubin 0.3 mg/dL (0.15-1.2)
[2020-10-12 17:35] LABS: Add Urine Microscopic? YES; Bilirubin Urine Neg (Negative); Blood Urine Neg (Negative); Glucose Urine UA 4+ (Normal); Ketones Urine Negative (Negative); Leukocyte Esterase Urine 1+ (Negative); Nitrate Urine Positive (Negative); Protein Urine 2+ (Negative); Specific Gravity, Urine 1.015 (1.005-1.030); Urine Appearance Hazy (CLEAR); Urine Color Yellow (Yellow); Urobilinogen Urine Norm (Negative); pH Urine 5 (5-7)
[2020-10-12 17:41] LABS: Alcohol Level < 10 mg/dL (0-10)
[2020-10-12 17:51] LABS: Bacteria Urine 4+ /hpf
[2020-10-12 17:52] LABS: Add Urine Culture? Yes; Amorphous Sediment Urine 1+ /hpf; WBC Urine 15-25 /hpf (0-5)
[2020-10-12] MEDS: cefTRIAXone 1,000 MG in sodium chloride 0.9% (plus) 50 ML 100 MG IV (18:02)
--- NOTE | 2020-10-12 18:53 | CTR_ITS ---
PROCEDURE INFORMATION: Exam: CT Angiography Head With Contrast Exam date and time: 10/12/2020 7:55 PM Age: 55 years old Clinical indication: Patient HX: RT side weakness. HX of stroke; Additional info: CVA symptoms TECHNIQUE: Imaging protocol: Computed tomography angiography of the head with intravenous contrast. 3D rendering (Not supervised by radiologist): MIP and/or 3D reconstructed images were created by the technologist. Radiation optimization: All CT scans at this facility use at least one of these dose optimization techniques: automated exposure control; mA and/or kV adjustment per patient size (includes targeted exams where dose is matched to clinical indication); or iterative reconstruction. Contrast material: VISI 320; Contrast volume: 95 ml; Contrast route: INTRAVENOUS (IV); COMPARISON: CT head wo con* [id number] 10/12/2020 6:17 PM RADIATION DOSE METRICS: Total DLP (mGy-cm): 3143.37 FINDINGS: ANTERIOR CIRCULATION: Right internal carotid artery: Cerebral arteriosclerosis of the internal carotid artery terminus without visible evidence of hemodynamically significant stenosis. Intracranial segment is patent with no significant stenosis. No aneurysm. Right middle cerebral artery: Unremarkable. No occlusion or significant stenosis. No aneurysm. Right anterior cerebral artery: Unremarkable. No occlusion or significant stenosis. No aneurysm. Left internal carotid artery: Cerebral arteriosclerosis of the internal carotid artery terminus without visible evidence of hemodynamically significant stenosis. Intracranial segment is patent with no significant stenosis. No aneurysm. Left middle cerebral artery: Unremarkable. No occlusion or significant stenosis. No aneurysm. Left anterior cerebral artery: Unremarkable. No occlusion or significant stenosis. No aneurysm. POSTERIOR CIRCULATION: Right vertebral artery: Unremarkable. No occlusion or significant stenosis. No aneurysm. Left vertebral artery: Unremarkable. No occlusion or significant stenosis. No aneurysm. Basilar artery: Unremarkable. No occlusion or significant stenosis. No aneurysm. Right posterior cerebral artery: Unremarkable. No occlusion or significant stenosis. No aneurysm. Left posterior cerebral artery: origin. No occlusion or significant stenosis. No aneurysm. Brain: No definite mass, mass effect, or midline shift. Cerebral ventricles: No ventriculomegaly. Bones/joints: Unremarkable. No acute fracture. Soft tissues: Unremarkable. IMPRESSION: 1. No large vessel stenosis or occlusion. 2. Cerebral arteriosclerosis of the bilateral internal carotid artery terminus without visible evidence of hemodynamically significant stenosis. 3. origin of the left posterior cerebral artery. Normal anatomical variant. PROCEDURE INFORMATION: Exam: CT Angiography Neck With Contrast Exam date and time: 10/12/2020 7:55 PM Age: 55 years old Clinical indication: Patient HX: RT side weakness. HX of stroke; Additional info: CVA symptoms TECHNIQUE: Imaging protocol: Computed tomography angiography of the neck with intravenous contrast. 3D rendering (Not supervised by radiologist): MIP and/or 3D reconstructed images were created by the technologist. Radiation optimization: All CT scans at this facility use at least one of these dose optimization techniques: automated exposure control; mA and/or kV adjustment per patient size (includes targeted exams where dose is matched to clinical indication); or iterative reconstruction. Contrast material: VISI 320; Contrast volume: 95 ml; Contrast route: INTRAVENOUS (IV); COMPARISON: CT head wo con* [id number] 10/12/2020 6:17 PM RADIATION DOSE METRICS: Total DLP (mGy-cm): 3143.37 FINDINGS: Right common carotid artery: No stenosis. No dissection or occlusion. Right internal carotid artery: No stenosis of the extracranial segment. No dissection or occlusion. Right external carotid artery: No occlusion or stenosis of the origin. Right vertebral artery: No stenosis. No dissection or occlusion. Left common carotid artery: No stenosis. No dissection or occlusion. Left internal carotid artery: No stenosis of the extracranial segment. No dissection or occlusion. Left external carotid artery: No occlusion or stenosis of the origin. Left vertebral artery: No stenosis. No dissection or occlusion. Bones/joints: No acute fracture. Soft tissues: Unremarkable. No significant soft tissue swelling. Lungs: Small patchy ground-glass interstitial lung disease of the visualized bilateral upper lobes which could reflect active interstitial pneumonitis. CT/CT angio headneck* [id number] IMPRESSION: 1. No stenosis or occlusion. 2. Minimal arteriosclerosis of the common carotid artery bulbs. 3. Small patchy ground-glass interstitial lung disease of the visualized bilateral upper lobes which could reflect active interstitial pneumonitis. REFERENCES: NASCET CRITERIA. The degree of internal carotid artery stenosis is based on NASCET criteria. Normal is no stenosis. Mild is less than 50% stenosis. Moderate is 50-69% stenosis. Severe is 70% to 99% stenosis. Total occlusion is no detectable patent lumen. Radiation Dose CTDIVOL = (mGy): DLP = 3143.37~3143.37 (mGy-cm)
[2020-10-12] MEDS: iodixanol 320 mg/mL 100mL Btl IV (20:00)
--- NOTE | 2020-10-12 20:14 | PC.NURSE ---
manual bp addressed with erp, states wants to hold unless 220/110 or over pending cta results. pt requesting carreon catheter because she states she cannot urinate on her own. erp also states hold for now on this.
--- NOTE | 2020-10-12 20:36 | PM.HP ---
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 coli sensitive to cephalosporins, resistant to ampicillin, brought in by her family for chief complaint of blurry vision and altered mental status. Patient is stating that since June she has not been able to take care of herself at all, she is dependent on her for daily activities such as bathing, clothing and food. Her has been struggling to take care of her her last body shower was 20 days ago. For last few days she has been experiencing headache every time she wakes up in the morning, her vision initially gets blurry and then improves within few minutes of awakening. She also has history of migraine. Today when she woke up her headache and blurry vision did not improve at all and she was brought to the hospital for further evaluation. Patient is stating that her headache is located in back of her head which she describing as throbbing, she also feels pressure behind her eyes, she has not noticed any runny nose, runny eyes, neck pain, fever. She does endorse history of cataract surgery, macular degeneration status post laser treatments, she denied retinal detachment or however it is mentioned in her past medical history. She has stopped taking insulin for last few months, compliance with her medications is questionable. She is trying to arrange home care because she does not want to leave her pets. She has not noticed any fever short of breath, nausea, vomiting, chest pain, dysuria. She is endorsing urinary frequency but denying urgency. Her suprapubic catheter was removed and she is able to void spontaneously. She has left-sided residual weakness and is bedbound since June of this year. Diagnosis in the ER revealed hypertensive urgency, CT head unremarkable, CT head and neck unremarkable, hyperglycemia without acidosis, abnormal UA noted, glucosuria, chronic kidney disease, groundglass interstitial lung disease noted Review of Systems Const: Reports: chills, body aches, change in appetite and fatigue; Denies: fever(s) Eyes: Reports: change in vision and blurry vision; Denies: blind spots, photophobia, eye discomfort, eye discharge, eye redness, yellow eyes, dry eyes, increased production of tears or seeing flashes ENMT: Denies: throat pain Card: Denies: chest pain Resp: Denies: dyspnea GI: Reports: constipation; Denies: abdominal pain : Reports: urinary frequency; Denies: flank pain Musc: Reports: back pain, extremity pain and limited range of motion; Denies: neck pain Skin/Breast: Reports: lesions, dry skin and striae Neuro: Reports: headache(s) Psych: Reports: anxiety Endo: Reports: polyuria Sterling/Lymph: Denies: easy bruising All/Imm: Denies: urticaria Medications/Allergies Home Medications Medication Instructions Recorded Confirmed Last Taken Type amlodipine 10 mg tablet 10 mg PO DAILY@139912/01/19 10/12/20 10/11/20 History clopidogrel 75 mg tablet 75 mg PO DAILY@139912/01/19 10/12/20 10/11/20 History escitalopram oxalate 20 mg tablet 20 mg PO DAILY@139912/01/19 10/12/20 10/11/20 History fenofibrate nanocrystallized 48 mg 48 mg PO DAILY@139912/01/19 10/12/20 10/11/20 History tablet metoprolol succinate 50 mg 50 mg PO BID 12/01/19 10/12/20 10/11/20 History tablet,extended release 24 hr pravastatin 20 mg tablet 80 mg PO DAILY@139912/01/19 10/12/20 10/11/20 History solifenacin 5 mg tablet 5 mg PO DAILY@139912/01/19 10/12/20 10/11/20 History topiramate 100 mg tablet 100 mg PO DAILY@139912/01/19 10/12/20 10/11/20 History ondansetron HCl [Zofran] 4 mg PO Q6H PRN #20 tab 03/20/20 10/12/20 Unknown Rx cyclobenzaprine 10 mg PO TID PRN 10/12/20 10/12/20 10/11/20 History Allergies Allergy/AdvReac Type Severity Reaction Status Date / Time levofloxacin [From Levaquin] Allergy NA Verified 11/18/19 08:30 metronidazole [From Flagyl] Allergy NA Verified 11/18/19 08:30 miconazole Allergy NA Verified 11/18/19 08:30 Sulfa (Sulfonamide Allergy NA Verified 11/18/19 08:30 Antibiotics) PFSH Acute PFSH: Medical History Acute depression Acute lower UTI CVA (cerebral vascular accident) Neurogenic bladder Renal failure Suprapubic catheter Type 2 diabetes mellitus without complications Surgical History H/O detached retina repair H/O oral surgery S/P appendectomy S/P cataract surgery S/P cholecystectomy S/P knee surgery S/P shoulder surgery Family History Father Cancer Lymphoma Mother CAD (coronary artery disease) Diabetes Chronic kidney disease (CKD) Social History Smoking and tobacco status: current every day smoker Alcohol intake: never Marital status: Current occupational status: disabled Vitals/I&O/Wt Last Vital Signs Temp 98.4 F 10/12/20 16:18 Pulse 97 10/12/20 20:13 Resp 18 10/12/20 20:13 BP 208/100 10/12/20 20:13 Pulse Ox 95 10/12/20 20:13 Weight last 48 hrs Weight 92.986 kg Physical Exam Narrative: EXAM NARRATIVE: Morbidly obese female Unkempt appearance She is laying in her bed complaining about her headache Saturating well on room air Asymmetrical pupil, asymmetrical left pupil secondary to cataract surgery She also has medial rectus palsy of left eye No eye redness or discharge noted S1, S2 sinus rhythm, looks dehydrated Abdomen soft, distended with obesity Suprapubic catheter scar maninder with some excoriation no active drainage Lower extremity no edema gangrene ulcer, Stains of fecal matter on her legs Left sided weakness Right arm strength 3/5, right lower leg 3/5 She is able to follow command, GCS 15 awake alert oriented x3 No acute respiratory distress Mood is irritable No signs of meningismus Data : 10/12/20 16:23 10/12/20 16:23 A&P Assessment and plan (1) Headache: Status: Acute (2) Blurry vision: Status: Acute (3) Hypertensive urgency: Status: Acute (4) Hyperglycemia: Status: Acute Additional A&P Information Diplopia Multifactorial, hyperglycemia, macular degeneration, she also has medial rectus palsy of left eye which 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 Would recommend ophthalmology consult Hypertensive urgency No evidence of stroke on CT head, CT head and neck unremarkable, Consider MRI in the morning to rule out midbrain infarct as she has already received contrast I would only reduce mean arterial pressure 25% in next few hours I do suspect diabetes and hypertension to be the cause of this isolated nerve damage I would add dual antiplatelet therapy along high-dose statins Suboptimal control type 2 diabetes Patient has not been taking insulin for quite some months We will check A1c level, start her on consistent carb diet and sliding scale Bedbound since June 2020 Dependent on her she is applying for home care does not want to go to retirement or rehab for long-term because she does not want to leave her pets at home 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 Physical therapy evaluate Urinary urgency This is most likely secondary to hypoglycemia, she is not complaining of dysuria she is afebrile I do not suspect UTI at this point, she received ceftriaxone in the ER which I will discontinue urine sample has signs of contamination Repeat UA Full code DVT prophylaxis Heparin Consistent carb diet Attestations Medical Necessity Statement*: Anticipating discharge in less than 48 hours currently need physical therapy evaluation and management of suboptimally controlled diabetes and work-up for diplopia Time Spent in Patient Care: (>than 50% of time spent in counselling and/or direct pt care on unit). 40mins Coding Level of Care Code Acute Consultant Education for Chg Fwd Diagnoses Headache R51.9 Blurry vision H53.8 Hypertensive urgency I16.0 Hyperglycemia R73.9
--- NOTE | 2020-10-12 20:41 | PC.NURSE ---
pt refusing pulse ox or bp monitoring at this time as she wishes to be on the phone and it interferes with her phone conversation
[2020-10-12 21:11] LABS: SARS Covid-2 Antigen Negative (Negative)
--- NOTE | 2020-10-12 21:34 | PC.NURSE ---
report given to pritesh pham
[2020-10-12 22:13] LABS: Glucose Point of Care 272 mg/dL (70-110)
[2020-10-12] MEDS: enalaprilat 1.25 mg/mL Inj 0.625 MG IVP (22:32)
[2020-10-12] MEDS: SUMAtriptan 25 mg Tablet PO (22:43)
[2020-10-12 23:04] LABS: Estmated Average Glucose 318; Hemoglobin A1C 12.7 % (4.0-6.0)
[2020-10-12 23:09] LABS: Thyroid Stimulating Hormone 2.02 uIU/mL (0.27-4.20)
[2020-10-12] MEDS: hyDRALAzine 20 mg/mL INJ 1 mL 5 MG IVP (23:14)
[2020-10-13] VITALS (74 sets, daily range): BP systolic 111–176; BP diastolic 65–103; PULSE 76–117; RESP 12–30; TEMP 36.6–36.8; O2SAT 87–100
[2020-10-13] MEDS: nicardipine 20 MG/200 ML PREMIX 50 MG IV ×2 (00:58→05:29)
[2020-10-13 01:14] LABS: Glucose Urine UA Norm (Normal); Ketones Urine Negative (Negative); Protein Urine Neg (Negative); Urine Color Yellow (Yellow)
[2020-10-13 01:15] LABS: Bilirubin Urine Neg (Negative); Blood Urine 2+ (Negative); Leukocyte Esterase Urine 2+ (Negative); Nitrate Urine Positive (Negative); Urobilinogen Urine Norm (Negative)
[2020-10-13 01:18] LABS: Add Urine Microscopic? YES
[2020-10-13 01:22] LABS: Urine Appearance Cloudy (CLEAR)
--- NOTE | 2020-10-13 01:26 | PC.NURSE ---
New urine culture order put in due to lab calling and stating they could not see the urine culture order.
--- NOTE | 2020-10-13 01:28 | PC.NURSE ---
PT ARRIVED TO ROOM 107. HOME AND FAMILY LIVING PROFESSOR NURSE STARTED PT ON CARDENE GTT. BP 172/99. PT ORIENTATED TO ROOM. PT C/O HEAD ACHE 07/14 BUT WANTS SLEEP RATHER THAN TYLENOL. PT STATES THAT THEY HAD A STROKE IN 2011 THAT LEFT THE LEFT SIDE FLACCID. WILL CONTINUE TO MONITOR.
[2020-10-13 03:56] LABS: Basophils # 0.1 10^3/uL (0.0-0.1); Basophils % 0.7 %; Eosinophils # 0.2 10^3/uL (0.0-0.8); Eosinophils % 2.6 %; Hematocrit 40.7 % (37.0-47.0); Hemoglobin 13.5 g/dL (11.5-15.3); Lymphocytes # 2.1 10^3/uL (0.8-4.8); Lymphocytes % 25.6 %; Mean Corpuscular HGB Conc 33.2 g/dL (30.0-36.0); Mean Corpuscular Hemoglobin 28.2 pg (28.0-34.0); Mean Corpuscular Volume 85.1 fL (81-99); Mean Platelet Volume 9.7 fL (7.4-10.4); Monocytes # 0.5 10^3/uL (0.2-0.9); Monocytes % 6.3 %; Neutrophils # 5.18 10^3/uL (1.8-7.7); Neutrophils % 64.1 %; Nucleated Red Blood Cells % 0 %; Platelet Count 270 10^3/cmm (130-400); Red Blood Count 4.78 10^6/uL (4.1-5.3); Red Cell Distribution Width 12.5 % (12.1-15.1); White Blood Count 8.1 10^3/uL (4.0-10.0)
[2020-10-13 04:12] LABS: Anion Gap 12.9 (5-19); Blood Urea Nitrogen 32 mg/dL (6-20); Calcium 8.6 mg/dL (8.5-10.5); Carbon Dioxide 23 mmol/L (22-29); Chloride 105 mmol/L (98-107); Glomerular Filtration Rate 33.3 mL/min (90-130); Glucose 207 mg/dL (65-115); Osmolality Calculated 297 mOsm/kg (285-295); Potassium 3.9 mmol/L (3.5-5.1); Sodium 137 mmol/L (136-145)
--- NOTE | 2020-10-13 05:38 | PC.NURSE ---
THIS NURSE TRIED TO CALL AND UPDATE FAMILY (MARIO PADILLA) THAT THEY PT WAS MOVED TO ROOM 107. FAMILY DOES NOT HAVE VOICEMAIL SET UP FOR THIS NURSE TO LEAVE A MESSAGE. WILL CONTINUE TO MONITOR PT.
[2020-10-13] MEDS: heparin 5,000 unit/mL INJ 1 mL 5000 UNIT SUBCUT (05:45)
--- NOTE | 2020-10-13 06:27 | PC.NURSE ---
PT STATES THAT THEY DON'T LIKE HEPARIN AND WON'T TAKE IT ANYMORE. WILL PASS ALONG.
[2020-10-13 06:31] LABS: Glucose Point of Care 238 mg/dL (70-110)
--- NOTE | 2020-10-13 06:32 | PC.NURSE ---
PT RESTING IN BED AND DENIES PAIN AT THIS TIME. PT STATES THAT HEADACHE FEELS ALOT BETTER. PT STILL C/O BLURRED VISION. WILL CONTINUE TO MONITOR.
[2020-10-13] MEDS: metoprolol succinate ER (24 HR) 50 mg Tablet PO ×2 (08:12→17:27)
[2020-10-13] MEDS: aspirin 81 mg EC Tablet PO (08:12)
[2020-10-13] MEDS: nicardipine 20 MG/200 ML PREMIX 25 MG IV (09:14)
--- NOTE | 2020-10-13 09:49 | PC.CHAP ---
Pastoral Care Encounter/Spiritual Assessment Type of Contact [] Declined stringer up soldering machine visit [] Patient/Family/Request visit [] Outpatient visit [] Follow-up visit [] Physician referral [] Code/Alert [] Routine visit [] Staff referral [] Actively dying [] Patient sleeping [] Family support [] [] Out of room [] Palliative care [] [] Receiving care in room [] Pre-surgical visit [x] Trauma [] Long length of stay [] ICU visit [] Other: Relational/Emotional Strength [] Patient feels connected with others/family/visitors/staff [] Distress [] Loneliness/isolation [] Abandonment Spirituality of Patient [] Person of Micki [] Attends Adventism of their Micki [] Believes in Prayer [] Reads Bible or Jew materials [] There are Spiritual issues to be addressed Bobtailer Interventions [] Prayer [] Active listening [] Non-anxious presence [] Spiritual/emotional support [] Crisis/trauma care [] Spiritual counseling [] Bereavement support [] Provided bereavement packet [] Provided Bible/devotional materials [] Provided toy/stuffed animal, coloring book to patient or family member [] Provided Communion [] Anointing/[place] [] Salvation [] Completed spiritual assessment [] Other: Impact on Illness or Injury [] Angry [] Fearful [] Anxious [] Often cries [] Exhaustion [] Unable to work [] Unable to attend sabianist [] Unable to walk/stand [] Unable to read [] Unable to drive [] Unable to eat/drink [] Unable to sleep [] Unable to be with family [x] Patient intubated [] Other: Summary Time spent with patient 5 mins
[2020-10-13 11:22] LABS: Glucose Point of Care 325 mg/dL (70-110)
[2020-10-13] MEDS: hyDRALAzine 10 mg Tablet PO ×4 (13:03→20:27)
--- NOTE | 2020-10-13 15:18 | PM.PN ---
Subjective Subjective: Interval history: Overnight labs and H&P reviewed Patient was moved to the [facility] overnight and started on nicardipine drip after which her blood pressure has been well controlled. She is down to 3 mg currently, we will start overlap with p.o. agents. Medications: Reviewed: Yes Vitals/I&O/Wt Last Vital Signs Temp 98.0 F 10/13/20 11:04 Pulse 89 10/13/20 11:04 Resp 18 10/13/20 11:04 BP 111/90 10/13/20 11:04 Pulse Ox 96 10/13/20 11:04 10/13/20 10/13/20 10/13/20 06:59 14:59 22:59 Intake Total 300 / 300 760.416 / 760.416 Balance 300 / 300 760.416 / 760.416 Weight last 48 hrs Weight 92.986 kg Physical Exam Narrative: EXAM NARRATIVE: GEN: Awake, alert and oriented, no acute distress CVS: S1S2 N RS: CTA B/L anteriorly Abd: Soft, nt/nd , bs+ LAUNDRY AGENT: Left-sided facial nerve palsy, bilateral lower extremity power 2 out of 5, gross upper extremities however right upper extremity is weaker than the left Data : 10/13/20 03:00 10/13/20 03:00 Micro: Microbiology 10/12/20 17:15 Urine Culture - Preliminary Urine,Clean Catch Gram Negative Rods A&P Assessment and plan (1) Headache: Status: Acute (2) Blurry vision: Status: Acute (3) Hypertensive urgency: Status: Acute (4) Hyperglycemia: Status: Acute Additional A&P Information Diplopia Multifactorial, hyperglycemia, macular degeneration, she also has 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 She states that the diplopia is much improved at this present time. CTA head and neck and CT head unremarkable Hypertensive urgency No evidence of stroke on CT head, CT head and neck unremarkable, At this present time she has been running a nicardipine drip since overnight, down to 3 mg, start overlapping with oral medications Continue amlodipine 10 mg p.o. daily, metoprolol 50 mg p.o. twice daily, add hydralazine 10 mg p.o. 4 times daily Continue aspirin, Plavix and atorvastatin Suboptimal control type 2 diabetes Patient has not been taking insulin correctly for quite some months. Unable to check her fingetsyicks at home. Hemoglobin A1c at 12.7 currently. On insulin sliding scale Bedbound since June 2020 from prior stroke. Patient states that at a baseline she is bedbound, she is able to move from bed to bedside commode by holding onto some bars and a fall that she has at her bedside. Her arranges a table at her bedside and she has multiple drawers into which she organizes her medication. She takes her medications by herself. She used to have a suprapubic catheter until November of this year, which was accidentally removed. Since then she has not had it is SPC placed, but has been able to retrain her bladder to be intermittently continent and pees when she moves onto the bedside commode. She is dependent on her for cleanups, however states that he has found it increasingly difficult to take care of her because of his own medical issues. At this present time she has been unable to date in the last 20 days and has suffered in terms of personal hygiene. She feels she is more deconditioned over the last 3 months and believes she will benefit from aggressive physical therapy over the next few weeks that can enable her to the point of her baseline functioning will return home with home health services. Full code DVT prophylaxis Heparin Consistent carb diet Attestations Medical Necessity Statement*: Hypertensive urgency, overlapping with oral medications to titrate off nicardipine drip, awaiting placement at SNF. Change to inpatient status Coding Level of Care Code Acute Automatic Nailing Machine Feeder for Ish Sawyer Diagnoses Headache R51.9 Blurry vision H53.8 Hypertensive urgency I16.0 Hyperglycemia R73.9
[2020-10-13] MEDS: clopidogrel 75 mg Tablet PO (15:37)
[2020-10-13] MEDS: atorvastatin 40 mg Tablet 20 MG PO (15:37)
[2020-10-13] MEDS: topiramate 100 mg Tablet PO (15:37)
[2020-10-13] MEDS: amlodipine 10 mg Tablet PO (15:37)
[2020-10-13 16:49] LABS: Glucose Point of Care 185 mg/dL (70-110)
--- NOTE | 2020-10-13 18:42 | PC.NURSE ---
pt refused sub q heparin.states it gives me blood blisters .dr millard notified.hydralazine po started qid today.was on cardene drip until 1720..at which time bp 124/83..dr millard notified and order received to isaiah simpson.
[2020-10-13 20:25] LABS: Glucose Point of Care 323 mg/dL (70-110)
--- NOTE | 2020-10-13 20:30 | PC.NURSE ---
Patient c/o headache 06/13. Refused morphine for headache and stated, Tylenol doesn't work. Informed Dr Silva and no new order received due to increased creatinine level. Explained to patient circumstances and patient stated, I am just falling apart. Patient agreeable at that time.
[2020-10-14] VITALS (11 sets, daily range): BP systolic 153–177; BP diastolic 74–93; PULSE 67–77; RESP 15–19; TEMP 36.3–36.6; O2SAT 91–96
--- NOTE | 2020-10-14 00:20 | PC.NURSE ---
Patient continues to c/o headache 05/13. Agreeable to try Tylenol. Informed Dr. Silva and he placed order. Patient did not received dose of Tylenol due to falling back to sleep. No further complaints.
[2020-10-14 06:27] LABS: Glucose Point of Care 268 mg/dL (70-110)
[2020-10-14] MEDS: aspirin 81 mg EC Tablet PO (10:35)
[2020-10-14] MEDS: hyDRALAzine 10 mg Tablet PO (10:35)
[2020-10-14] MEDS: metoprolol succinate ER (24 HR) 50 mg Tablet PO ×2 (10:35→17:06)
[2020-10-14 11:18] LABS: Glucose Point of Care 214 mg/dL (70-110)
[2020-10-14] MEDS: hyDRALAzine 25 mg Tablet PO ×3 (12:25→22:31)
--- NOTE | 2020-10-14 13:00 | P.PN_ITS ---
Subjective Subjective: Interval history: BP better controlled today, remains of fnicardipine drip, trending to SBP 160s today, no new complaints Medications: Reviewed: Yes Vitals/I&O/Wt Last Vital Signs Temp 97.3 F L 10/14/20 11:15 Pulse 67 10/14/20 11:15 Resp 15 10/14/20 11:15 BP 159/84 10/14/20 11:15 Pulse Ox 96 10/14/20 11:15 10/13/20 10/14/20 10/14/20 22:59 06:59 14:59 Intake Total 320 / 1080.416 120 / 1200.416 960 / 960 Balance 320 / 1080.416 120 / 1200.416 960 / 960 Weight last 48 hrs Weight 92.986 kg Physical Exam Narrative: EXAM NARRATIVE: GEN: Awake, alert and oriented, no acute distress CVS: S1S2 N RS: CTA B/L anteriorly Abd: Soft, nt/nd , bs+ ANDROID ARCHITECT: Left-sided facial nerve palsy, bilateral lower extremity power 2 out of 5, gross upper extremities however right upper extremity is weaker than the left Data : 10/13/20 03:00 10/13/20 03:00 Micro: Microbiology 10/13/20 00:35 Urine Culture - Preliminary Urine,Voided Gram Negative Rods 10/12/20 17:15 Urine Culture - Final Urine,Clean Catch Enterobacter aerogenes A&P Assessment and plan (1) Headache: Status: Acute (2) Blurry vision: Status: Acute (3) Hypertensive urgency: Status: Acute (4) Hyperglycemia: Status: Acute Additional A&P Information Diplopia Multifactorial, hyperglycemia, macular degeneration, she also has 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 She states that the diplopia is much improved at this present time. CTA head and neck and CT head unremarkable Hypertensive urgency No evidence of stroke on CT head, CT head and neck unremarkable, NIcardipine off now, SBP 160s today Continue amlodipine 10 mg p.o. daily, metoprolol 50 mg p.o. twice daily, increase hydralazine to 25 p.o. 4 times daily Continue aspirin, Plavix and atorvastatin Suboptimal control type 2 diabetes Patient has not been taking insulin correctly for quite some months. Unable to check her fingetsyicks at home. Hemoglobin A1c at 12.7 currently. On insulin sliding scale Bedbound since June 2020 from prior stroke. Patient states that at a baseline she is bedbound, she is able to move from bed to bedside commode by holding onto some bars and a fall that she has at her bedside. Her arranges a table at her bedside and she has multiple drawers into which she organizes her medication. She takes her medications by herself. She used to have a suprapubic catheter until November of this year, which was accidentally removed. Since then she has not had it is SPC placed, but has been able to retrain her bladder to be intermittently continent and pees when she moves onto the bedside commode. She is dependent on her for cleanups, however states that he has found it increasingly difficult to take care of her because of his own medical issues. At this present time she has been unable to date in the last 20 days and has suffered in terms of personal hygiene. She feels she is more deconditioned over the last 3 months and believes she will benefit from aggressive physical therapy over the next few weeks that can enable her to the point of her baseline functioning will return h ome with home health services. Continue working with PT/OT, SNF placement Full code DVT prophylaxis Heparin Consistent carb diet Attestations Medical Necessity Statement*: increasing anti hypertensives today and monitoring BP, awaiting SNF placement Coding Level of Care Code Acute Automotive Light Mechanic for Chg Fwd Diagnoses Headache R51.9 Blurry vision H53.8 Hypertensive urgency I16.0 Hyperglycemia R73.9
--- NOTE | 2020-10-14 13:26 | PC.RESP ---
Smoking Cessation information sent to patient.
[2020-10-14] MEDS: amlodipine 10 mg Tablet PO (14:49)
[2020-10-14] MEDS: topiramate 100 mg Tablet PO (14:49)
[2020-10-14] MEDS: clopidogrel 75 mg Tablet PO (14:49)
[2020-10-14] MEDS: atorvastatin 40 mg Tablet 20 MG PO (14:49)
[2020-10-14 15:58] LABS: Glucose Point of Care 302 mg/dL (70-110)
--- NOTE | 2020-10-14 18:26 | PC.NURSE ---
patient had an unevenful shift. patient was informed today by social sciences chair that she would be going home tomorrow instead of to a assisted due to insurance. patient and expressed concern about getting her into the house due to not having a ramp for her wheelchair. PCS form needs to be filled out per Magaly's note to transport patient tomorrow.
--- NOTE | 2020-10-14 20:10 | PC.NURSE ---
Patient taken off of bedpan and whole bed sheet change conducted. Pressure injury unstageable found on patient medial buttocks on the right side. Optifoam applied. Pericare provided and patient needs attended to.
[2020-10-14 20:15] LABS: Glucose Point of Care 233 mg/dL (70-110)
[2020-10-14] MEDS: morphine 4 mg/mL SDV 1 mL IVP (22:30)
[2020-10-14] MEDS: cyclobenzaprine 10 mg Tablet PO (22:31)
[2020-10-15] VITALS: BP 168/98; PULSE 73; RESP 14; TEMP 36.3; O2SAT 96
[2020-10-15 04:00] VITALS: BP 151/82; PULSE 97; RESP 16; O2SAT 96
[2020-10-15 05:07] VITALS: PULSE 66
[2020-10-15 05:09] LABS: Basophils % 0.5 %; Eosinophils # 0.2 10^3/uL (0.0-0.8); Eosinophils % 1.8 %; Hemoglobin 13.7 g/dL (11.5-15.3); Lymphocytes # 2.4 10^3/uL (0.8-4.8); Lymphocytes % 27.5 %; Mean Corpuscular HGB Conc 31.9 g/dL (30.0-36.0); Mean Corpuscular Hemoglobin 27.8 pg (28.0-34.0); Mean Corpuscular Volume 87.2 fL (81-99); Monocytes # 0.6 10^3/uL (0.2-0.9); Monocytes % 6.5 %; Neutrophils % 63.1 %; Nucleated Red Blood Cells % 0 %; Platelet Count 251 10^3/cmm (130-400); Red Blood Count 4.93 10^6/uL (4.1-5.3); Red Cell Distribution Width 12.6 % (12.1-15.1); White Blood Count 8.6 10^3/uL (4.0-10.0)
[2020-10-15 05:32] LABS: Alanine Aminotransferase 8 U/L (0-33); Albumin Level 3.2 g/dL (3.5-5.2); Alkaline Phosphatase 105 IU/L (35-105); Aspartate Amino Transferase 12 U/L (0-32); Blood Urea Nitrogen 32 mg/dL (6-20); Calcium 8.7 mg/dL (8.5-10.5); Carbon Dioxide 20 mmol/L (22-29); Chloride 103 mmol/L (98-107); Globulin 3.2 g/dL (1.3-4.6); Glomerular Filtration Rate 29.1 mL/min (90-130); Glucose 191 mg/dL (65-115); Osmolality Calculated 294 mOsm/kg (285-295); Sodium 136 mmol/L (136-145); Total Bilirubin 0.3 mg/dL (0.15-1.2); Total Protein 6.4 g/dL (6.6-8.7)
[2020-10-15 05:46] LABS: Anion Gap 16.9 (5-19); Potassium 3.9 mmol/L (3.5-5.1)
[2020-10-15 06:49] LABS: Glucose Point of Care 251 mg/dL (70-110)
[2020-10-15 07:12] VITALS: BP 153/82; PULSE 66; RESP 20; TEMP 36.2; O2SAT 94
[2020-10-15] MEDS: hyDRALAzine 25 mg Tablet PO ×2 (08:37→12:15)
[2020-10-15] MEDS: metoprolol succinate ER (24 HR) 50 mg Tablet PO (08:37)
[2020-10-15] MEDS: aspirin 81 mg EC Tablet PO (08:37)
[2020-10-15 10:46] VITALS: BP 131/74; PULSE 73; RESP 18; TEMP 37.1; O2SAT 93
[2020-10-15 11:09] LABS: Glucose Point of Care 315 mg/dL (70-110)
--- NOTE | 2020-10-15 12:26 | P.DS_ITS ---
Discharge Providers Date of Admission: 10/13/20 15:34 Date of Discharge: October 15, 2020 Attending Provider at Admission: Hillary Silva MD Attending Provider at Discharge: Emily Palacios MD Diagnoses at Discharge Discharge Diagnosis (1) Headache: Status: Acute (2) Blurry vision: Status: Acute (3) Hypertensive urgency: Status: Acute (4) Hyperglycemia: Status: Acute Reason for Visit Reason for Visit: AMS, DIZZY, DOUBLE VISION Hospital Course Hospital Course Erika Shen is a 55 year old female with history of left-sided residual weakness from CVA 8 years ago, neurogenic bladder (not requiring suprapubic catheter,), brought in by her family for chief complaint of blurry vision and altered mental status. Patient is stating that since June she has not been able to take care of herself at all, she is dependent on her for daily activities such as bathing, clothing and food.Diagnositics in the ER revealed hypertensive urgency, CT head unremarkable, CT head and neck unremarkable, hyperglycemia without acidosis. She was treated with nicardipine infusion which resolved her hypertensive urgency, hydralazine 25mg QID has been added to her home regimen. Attempts were made to place her at SNF, however this attempt remained unsuccessful, she is being discharged to home with [facility]. Patient states at this time she would prefer to return home. Her vision is back to baseline at discharge and headache is resolved. Physical Exam Narrative: EXAM NARRATIVE: EXAM NARRATIVE: GEN: Awake, alert and oriented, no acute distress CVS: S1S2 N RS: CTA B/L anteriorly Abd: Soft, nt/nd , bs+ DIE ENGRAVER: Left-sided facial nerve palsy, bilateral lower extremity power 2 out of 5, gross upper extremities however right upper extremity is weaker than the left Discharge Data Data Completed and Pending: Completed Studies During Hospitalization Category Date Time Status CT angio headneck * [id number] Urge nt Cat Scan 10/12/20 18:[address] head wo con* [id number] Urgent Cat Scan 10/12/20 16:29 Completed XR chest 1[place] [id number] Urgent Exams 10/12/20 16:29 Completed Labs from last 24 hours 10/15/20 10/15/20 10/15/20 10:44 06:45 04:40 WBC RBC Hgb Hct MCV MCH MCHC RDW Plt Count MPV Neut % (Auto) Lymph % (Auto) [place] % (Auto) Eos % (Auto) Baso % (Auto) Neut # (Auto) Lymph # (Auto) [place] # (Auto) Eos # (Auto) Baso # (Auto) Nucleated RBC % (a uto) Nucleated RBCs # Sodium 136 Potassium 3.9 Chloride 103 Carbon Dioxide 20 L Anion Gap 16.9 BUN 32 H Creatinine 1.8 H GFR Calculation 29.1 L Glucose 191 H POC Glucose 315 251 Calculated Osmolal ity 294 Calcium 8.7 Total Bilirubin 0.3 AST 12 ALT 8 Alkaline Phosphata se 105 Total Protein 6.4 L Albumin 3.2 L Globulin 3.2 10/15/20 10/14/20 10/14/20 04:40 20:13 15:55 WBC 8.6 RBC 4.93 Hgb 13.7 Hct 43.0 MCV 87.2 MCH 27.8 L MCHC 31.9 RDW 12.6 Plt Count 251 MPV 10.0 Neut % (Auto) 63.1 Lymph % (Auto) 27.5 [place] % (Auto) 6.5 Eos % (Auto) 1.8 Baso % (Auto) 0.5 Neut # (Auto) 5.40 Lymph # (Auto) 2.4 [place] # (Auto) 0.6 Eos # (Auto) 0.2 Baso # (Auto) 0.0 Nucleated RBC % (a uto) 0 Nucleated RBCs # 0.0 Sodium Potassium Chloride Carbon Dioxide Anion Gap BUN Creatinine GFR Calculation Glucose POC Glucose 233 302 Calculated Osmolal ity Calcium Total Bilirubin AST ALT Alkaline Phosphata se Total Protein Albumin Globulin Vitals: Last Vital Signs Temp 98.7 F 10/15/20 10:46 Pulse 73 10/15/20 10:46 Resp 18 10/15/20 10:46 BP 131/74 10/15/20 10:46 Pulse Ox 93 10/15/20 10:46 Discharge Plan Discharge Patient Disposition: Home Health Service Condition: Fair Prescriptions: New hydralazine 25 mg Tablet 25 mg PO QID 30 Days Qty: 120 RF: 0 insulin lispro [Humalog KwikPen Insulin] 100 unit/mL insulin pen See Rx Instructions .ROUTE .COMPLEX Qty: 15 RF: 0 Continued amlodipine [Norvasc] 10 mg tablet 10 mg PO DAILY@1400 RF: 0 clopidogrel [Plavix] 75 mg tablet 75 mg PO DAILY@1400 RF: 0 escitalopram oxalate 20 mg tablet 20 mg PO DAILY@1400 RF: 0 pravastatin 20 mg tablet 80 mg PO DAILY@1400 RF: 0 solifenacin [Vesicare] 5 mg tablet 5 mg PO DAILY@1400 RF: 0 fenofibrate nanocrystallized [Tricor] 48 mg tablet 48 mg PO DAILY@1400 RF: 0 topiramate [Topamax] 100 mg tablet 100 mg PO DAILY@1399 RF: 0 metoprolol succinate 50 mg tablet extended release 24 hr 50 mg PO BID RF: 0 cyclobenzaprine 10 mg tablet 10 mg PO TID PRN (Reason: muscle spasms) RF: 0 ondansetron HCl [Zofran] 4 mg tablet 4 mg PO Q6H PRN (Reason: nausea and vomiting) Qty: 20 RF: 0 Discharge Orders: Discharge Order (Routine); Ordered 10/15/20 Ordered By: Emily Palacios Referrals: May Dsouza MD [Referring] - 4-7 days (hospital discharge follow up ) Discharge Diet: Diabetic Discharge Activity: As per PT/OT instructions Discharge Attestations Time Spent in Discharge Care*: greater than 30 min Quality Metrics Clinical Quality Measures During this hospital stay, did patient experience: None Coding Level of Care Code Acute Machine Operations Supervisor for Chg Fwd Diagnoses Headache R51.9 Blurry vision H53.8 Hypertensive urgency I16.0 Hyperglycemia R73.9
[2020-10-15 12:52] VITALS: BP 131/74; PULSE 73; RESP 18; TEMP 37.1; O2SAT 93
== END 2020-10-15 14:54 | disposition home health service (06) | DRG 305 ==
LOC: ER 20:51 → MEDSURG 21:08 → CSU 10-13 00:59
PROVIDERS: Emergency Medicine; Admitting Provider Internal Medicine; Emergency Provider Emergency Medicine; Visit Provider Student in an Organized Health Care Education/Training Program
DX: I16.0 Hypertensive urgency (principal); I69.354 Hemiplegia and hemiparesis following cerebral infarction affecting left non-dominant side; R73.9 Hyperglycemia, unspecified; H53.8 Other visual disturbances; N31.9 Neuromuscular dysfunction of bladder, unspecified; Z79.02 Long term (current) use of antithrombotics/antiplatelets; F17.210 Nicotine dependence, cigarettes, uncomplicated; F32.9 Major depressive disorder, single episode, unspecified; E66.01 Morbid (severe) obesity due to excess calories; Z68.30 Body mass index [BMI] 30.0-30.9, adult
CPT/HCPCS: 12345; 36415; 36416; 36600; 70450; 70496; 70498; 71045; 80048; 80053; 80307; 81001; 82803; 82962; 83036; 83735; 84443; 85025; 87077; 87086; 87186; 87426; 93005; 96372; 96375; 97110; 97162; 97530; 99283; G0378; J0360; J0696; J1644; J1815; J2270; J3490; J7030; Q9967

== ENCOUNTER 2020-12-17 19:03 | Inpatient (IN) | payer MEDICARE, MEDICAID, SELFPAY ==
[2020-12-17] VITALS (10 sets, daily range): BP systolic 142–170; BP diastolic 65–106; PULSE 73–86; RESP 20; TEMP 37.4; O2SAT 92–96; BMI 28.7
--- NOTE | 2020-12-17 19:09 | XRR_ITS ---
PROCEDURE INFORMATION: Exam: XR Chest, 1 View Exam date and time: 12/17/2020 7:55 PM Age: 55 years old Clinical indication: Dyspnea; Additional info: Reduced breath sounds TECHNIQUE: Imaging protocol: XR of the chest Views: 1 view. COMPARISON: CR XR chest 1V portable [id number] 10/12/2020 4:51 PM FINDINGS: The lungs are clear of infiltrate. There are no pleural effusions or pneumothorax. The heart size and pulmonary vascularity are normal. XR/XR chest 1V portable [id number] IMPRESSION: No active disease.
--- NOTE | 2020-12-17 19:14 | ECG_ITS ---
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 Measurements Intervals [place] Rate: 80 P: 37 MT: 183 QRS: -25 QRSD: 85 T: 31 QT: 375 QTc: 434 Interpretive Statements SINUS RHYTHM POSSIBLE LEFT ATRIAL ENLARGEMENT [-0.1mV P WAVE IN V1/V2] POSSIBLE LEFT VENTRICULAR HYPERTROPHY [VOLTAGE CRITERIA PLUS LAE OR QRS WIDENING] POSSIBLE ANTERIOR MYOCARDIAL INFARCTION , OF INDETERMINATE AGE [30 ms Q WAVE IN V3/V4, OR R < 0.2 mV IN V4] Compared to ECG 10/12/2020 16:27:19 No significant changes Electronically Signed On 12-17-2020 19:33:20 GAS INSPECTOR by Gloria Lyles M.D. [id number]
[2020-12-17] MEDS: sodium chloride 0.9% 1,000 ML 999 ML IV (19:27)
--- NOTE | 2020-12-17 19:39 | CTR_ITS ---
PROCEDURE INFORMATION: Exam: CT Head Without Contrast Exam date and time: 12/17/2020 8:03 PM Age: 55 years old Clinical indication: Pain; Headache not specified; Patient HX: NOVOA HTN HX of CVA; Additional info: Headache. H/o CVA TECHNIQUE: Imaging protocol: Computed tomography of the head without contrast. Radiation optimization: All CT scans at this facility use at least one of these dose optimization techniques: automated exposure control; mA and/or kV adjustment per patient size (includes targeted exams where dose is matched to clinical indication); or iterative reconstruction. COMPARISON: CT head wo con* [id number] 10/12/2020 6:17 PM RADIATION DOSE METRICS: Total DLP (mGy-cm): 923.02 FINDINGS: The ventricles, sulci and basilar cisterns are normal for the patient's stated age. There is a cavum septum pellucidum and cavum vergae, a normal variant. There are mild areas of decreased attenuation in the periventricular white matter which is nonspecific but likely relates to small vessel ischemic change. Old infarcts are seen within the basal ganglia, thalami as well as the right caudate nucleus. There is no evidence for acute infarct. There is no evidence for mass. There is no hemorrhage. There are no extra-axial fluid collections. There is no midline shift. The skull is intact. The visualized paranasal sinuses are well aerated. There is atherosclerotic change of the cavernous carotid arteries. CT/CT head wo con* [id number] IMPRESSION: 1. Old infarcts as described. 2. No evidence for acute infarct, mass or hemorrhage. Radiation Dose CTDIVOL = (mGy): DLP = 923.02 (mGy-cm)
[2020-12-17 19:40] LABS: Basophils % 0.3 %; Eosinophils % 0.3 %; Hematocrit 44.1 % (37.0-47.0); Hemoglobin 14.7 g/dL (11.5-15.3); Lymphocytes # 2.1 10^3/uL (0.8-4.8); Lymphocytes % 13.7 %; Mean Corpuscular HGB Conc 33.3 g/dL (30.0-36.0); Mean Corpuscular Hemoglobin 27.4 pg (28.0-34.0); Mean Corpuscular Volume 82.3 fL (81-99); Mean Platelet Volume 9.6 fL (7.4-10.4); Monocytes # 0.9 10^3/uL (0.2-0.9); Monocytes % 6.1 %; Neutrophils # 11.85 10^3/uL (1.8-7.7); Neutrophils % 79.2 %; Nucleated Red Blood Cells % 0 %; Platelet Count 305 10^3/cmm (130-400); Red Blood Count 5.36 10^6/uL (4.1-5.3); Red Cell Distribution Width 13.3 % (12.1-15.1)
[2020-12-17 19:57] LABS: Troponin(5th) Baseline 35 ng/L (0-10)
--- NOTE | 2020-12-17 19:57 | W.ED.HA ---
HPI - Headache General: Chief Complaint: Headache Stated Complaint: HEADACHE Time Seen by Provider: 12/17/20 19:08 History of Present Illness: HPI Narrative: The patient is a 55-year-old female with past medical history hypertension and stroke. She comes to the ER complaining of headache. She has left-sided paralysis from her stroke and had been taken care of by her . Her just this morning and she has no one to take care of her. Senior services called me to report that her house has feces and rats in it and that she cannot take care of herself. MD elicited complaint: headache Onset description: suddenly Quality & Timing: aching Exacerbating factors: none Relieving factors: nothing Associated symptoms: Reports weakness; Deny chest pain, confusion or rash Review of Systems General: Reports: 10 or more systems reviewed and unremarkable except in HPI and below Const: Denies: fatigue Eyes: Denies: change in vision, blurry vision or eye redness ENMT: Denies: throat pain, swelling of lips/tongue, ear or mastoid pain or nasal congestion Card: Denies: chest pain, palpitations, irregular heart rhythm, edema, dyspnea on exertion or orthopnea Resp: Denies: dyspnea, productive cough or non-productive cough GI: Denies: abdominal pain, diarrhea or GI cramping : Denies: flank pain, difficulty voiding, urinary frequency or urinary urgency Musc: Denies: neck pain, back pain, extremity pain, joint pain, joint redness, limited range of motion or muscle weakness Skin/Breast: Denies: rash, pruritus, erythema, skin pain or skin tenderness Neuro: Reports: headache(s) and weakness in extremities; Denies: numbness in extremities, sensory changes, difficulty walking, dizziness, confusion or Slurred speech present Psych: Denies: anxiety or depression Endo: Denies: polyuria All/Imm: Denies: urticaria, throat swelling or tongue swelling PFSH ED PFSH: Medical History Acute depression Acute lower UTI CVA (cerebral vascular accident) Neurogenic bladder Renal failure Suprapubic catheter Type 2 diabetes mellitus without complications Surgical History H/O detached retina repair H/O oral surgery S/P appendectomy S/P cataract surgery S/P cholecystectomy S/P knee surgery S/P shoulder surgery Family History Father Cancer Lymphoma Mother CAD (coronary artery disease) Diabetes Chronic kidney disease (CKD) Social History Smoking and tobacco status: current every day smoker Alcohol intake: never Marital status: Current occupational status: disabled Physical Exam Const: COMMON NORMALS: no acute distress, patient oriented x3, no limitations, alert and well nourished GENERAL APPEARANCE: cooperative, comfortable and disheveled NUTRITIONAL APPEARANCE: overweight ORIENTATION/CONSCIOUSNESS: Yes awake, Yes oriented to person, Yes oriented to place and Yes oriented to time HENMT: COMMON NORMALS: normocephalic, external ears normal and Normal external nose present HEAD & SCALP: normal to inspection and normocephalic NOSE: Normal external nose present EXTERNAL EAR: Yes external ears normal MOUTH: Normal oral and palatal mucosa present THROAT: posterior oropharynx normal Eye: COMMON NORMALS: Equal, round and reactive pupils present and EOMs intact bilaterally GENERAL EYE: appearance normal, both eyes and all related structures PUPIL: Yes Equal, round and reactive pupils present Neck/C-Spine: COMMON NORMALS: full ROM, no lymphadenopathy and no JVD GENERAL: Yes normal visual inspection Lymph: LYMPHATIC: no lymphadenopathy noted Chest: COMMONS NORMALS: normal inspection of the chest and normal palpation of entire chest wall Resp: COMMON NORMALS: normal respiratory effort, No retractions, No use of accessory muscles, clear to auscultation bilaterally and percussion normal EFFORT & INSPECTION: Yes able to speak in complete sentences AUSCULTATION: clear to auscultation bilaterally PERCUSSION: percussion normal Cardio: COMMON NORMALS: no JVD, regular rate, regular rhythm, S1 normal heart sound present, S2 normal heart sound present and Peripheral pulses 2+ throughout RATE: regular rate RHYTHM: regular rhythm HEART SOUNDS: S1 normal heart sound present and S2 normal heart sound present PERIPHERAL PULSES: Peripheral pulses 2+ throughout GI: COMMON NORMALS: Normal to inspection, nondistended, normoactive bowel sounds present, Soft to palpation, non-tender and no masses INSPECTION: Yes normal to inspection PALPATION: Yes Soft to palpation : COMMON NORMALS: Yes no CVA tenderness BLADDER/KIDNEY EXAM: Yes no CVA tenderness Back/Pelvis: COMMON NORMALS: no CVA tenderness, thoracic and lumbar spine normal to inspection, no thoracic nor lumbar tenderness and thoraco-lumbar ROM normal Extremity: COMMON NORMALS: normal to inspection, full ROM, capillary refill normal, no joint enlargement and no pedal edema GENERAL: Yes normal exam except as noted Neuro: COMMON NORMALS: patient oriented x3, CN's II-XII intact bilaterally and no sensory deficits noted SENSORIUM/ORIENTATION: Yes alert, Yes oriented to person, Yes oriented to place and Yes oriented to time OTHER: She has chronic left-sided paralysis from a previous CVA. No changes to this chronic condition Psych: COMMON NORMALS: mental status grossly normal, Normal thought process present, cooperative, normal affect and speech normal ATTITUDE: Yes calm SPEECH: Yes normal speech MOOD & AFFECT: Yes depressed mood THOUGHT PROCESS: Normal thought process present Skin: COMMON NORMALS: no rashes or lesions noted NARRATIVE SKIN EXAM: 2 small car sized or smaller sacral ulcer stage I. GENERAL SKIN EXAM: no rashes or lesions noted Course Vital Signs: Vital signs: Vital Signs Temperature 99.4 F 12/17/20 19:08 Pulse Rate 75 12/17/20 22:39 Respiratory Rate 20 H 12/17/20 19:08 Blood Pressure 143/65 12/17/20 22:39 Pulse Oximetry 93 12/17/20 22:39 MDM - Headache MDM Narrative: Medical decision making narrative: The patient is a chronic stroke patient with left-sided paralysis whose this morning. She is unable to care for herself and lives in an in hospitable environment with feces and mice at her house. She has an elevated white count at 15 and a urinary tract infection and will be admitted for this. Dr. Ac accepts Lab Data: Labs: Lab Results 12/17/20 12/17/20 12/17/20 Range/Units 19:15 19:15 19:15 WBC 15.0 H (4.0-10.0) 10^3/ uL RBC 5.36 H (4.1-5.3) 10^6/u L Hgb 14.7 (11.5-15.3) g/dL Hct 44.1 (37.0-47.0) % MCV 82.3 (81-99) fL MCH 27.4 L (28.0-34.0) pg MCHC 33.3 (30.0-36.0) g/dL RDW 13.3 (12.1-15.1) % Plt Count 305 (130-400) 10^3/c mm MPV 9.6 (7.4-10.4) fL Neut % (Auto) 79.2 % Lymph % (Auto) 13.7 % [place] % (Auto) 6.1 % Eos % (Auto) 0.3 % Baso % (Auto) 0.3 % Neut # (Auto) 11.85 H (1.8-7.7) 10^3/u L Lymph # (Auto) 2.1 (0.8-4.8) 10^3/u L [place] # (Auto) 0.9 (0.2-0.9) 10^3/u L Eos # (Auto) 0.0 (0.0-0.8) 10^3/u L Baso # (Auto) 0.0 (0.0-0.1) 10^3/u L Nucleated RBC % (a uto) 0 % Nucleated RBCs # 0.0 /100WBC Sodium 132 L (136-145) mmol/L Potassium 5.0 (3.5-5.1) mmol/L Chloride 98 (98-107) mmol/L Carbon Dioxide 22 (22-29) mmol/L Anion Gap 17.0 (5-19) BUN 33 H (6-20) mg/dL Creatinine 1.6 H (0.5-0.9) mg/dL GFR Calculation 33.3 L (90-130) mL/min Glucose 246 H (65-115) mg/dL Calculated Osmolal ity 289 (285-295) mOsm/k g Calcium 9.4 (8.5-10.5) mg/dL Total Bilirubin 0.6 (0.15-1.2) mg/dL AST 11 (0-32) U/L ALT 9 (0-33) U/L Alkaline Phosphata se 100 (35-105) IU/L Troponin T Baselin e 35 H (0-10) ng/L NT-Pro-B Natriuret Pep 920 H (0-125) pg/mL Total Protein 6.8 (6.6-8.7) g/dL Albumin 4.0 (3.5-5.2) g/dL Globulin 2.8 (1.3-4.6) g/dL Urine Color (Yellow) Urine Appearance (CLEAR) Urine pH (5-7) Ur Specific Gravit y (1.005-1.030) Urine Protein (Negative) Urine Glucose (UA) (Normal) Urine Ketones (Negative) Urine Blood (Negative) Urine Nitrate (Negative) Urine Bilirubin (Negative) Urine Urobilinogen (Negative) mg/dL Ur Leukocyte Holly ase (Negative) Urine RBC (0-2) /hpf Urine WBC (0-5) /hpf Ur Squamous Epith Cells (0-5) /hpf Amorphous Sediment Urine Bacteria (NONE) /hpf 12/17/20 Range/Units 20:24 WBC (4.0-10.0) 10^3/ uL RBC (4.1-5.3) 10^6/u L Hgb (11.5-15.3) g/dL Hct (37.0-47.0) % MCV (81-99) fL MCH (28.0-34.0) pg MCHC (30.0-36.0) g/dL RDW (12.1-15.1) % Plt Count (130-400) 10^3/c mm MPV (7.4-10.4) fL Neut % (Auto) % Lymph % (Auto) % [place] % (Auto) % Eos % (Auto) % Baso % (Auto) % Neut # (Auto) (1.8-7.7) 10^3/u L Lymph # (Auto) (0.8-4.8) 10^3/u L [place] # (Auto) (0.2-0.9) 10^3/u L Eos # (Auto) (0.0-0.8) 10^3/u L Baso # (Auto) (0.0-0.1) 10^3/u L Nucleated RBC % (a uto) % Nucleated RBCs # /100WBC Sodium (136-145) mmol/L Potassium (3.5-5.1) mmol/L Chloride (98-107) mmol/L Carbon Dioxide (22-29) mmol/L Anion Gap (5-19) BUN (6-20) mg/dL Creatinine (0.5-0.9) mg/dL GFR Calculation (90-130) mL/min Glucose (65-115) mg/dL Calculated Osmolal ity (285-295) mOsm/k g Calcium (8.5-10.5) mg/dL Total Bilirubin (0.15-1.2) mg/dL AST (0-32) U/L ALT (0-33) U/L Alkaline Phosphata se (35-105) IU/L Troponin T Baselin e (0-10) ng/L NT-Pro-B Natriuret Pep (0-125) pg/mL Total Protein (6.6-8.7) g/dL Albumin (3.5-5.2) g/dL Globulin (1.3-4.6) g/dL Urine Color Yellow (Yellow) Urine Appearance Sl cloudy A (CLEAR) Urine pH 5 (5-7) Ur Specific Gravit y 1.020 (1.005-1.030) Urine Protein Neg (Negative) Urine Glucose (UA) Norm (Normal) Urine Ketones Negative (Negative) Urine Blood 2+ H (Negative) Urine Nitrate Negative (Negative) Urine Bilirubin Neg (Negative) Urine Urobilinogen Norm (Negative) mg/dL Ur Leukocyte Holly ase 2+ H (Negative) Urine RBC 15-25 H (0-2) /hpf Urine WBC >100 H (0-5) /hpf Ur Squamous Epith Cells 0-4 H (0-5) /hpf Amorphous Sediment Not Reportable Urine Bacteria 4+ H (NONE) /hpf Discharge Plan Discharge Patient Disposition: Admitted As Inpatient Clinical Impression: UTI (urinary tract infection), Acute hyponatremia, Leukocytosis Condition: Stable Coding Level of Care Code ED Disciplinary Hearing Officer for Chg Fwd Exam Comprehensive
[2020-12-17 20:05] LABS: Alanine Aminotransferase 9 U/L (0-33); Alkaline Phosphatase 100 IU/L (35-105); Aspartate Amino Transferase 11 U/L (0-32); Blood Urea Nitrogen 33 mg/dL (6-20); Calcium 9.4 mg/dL (8.5-10.5); Carbon Dioxide 22 mmol/L (22-29); Chloride 98 mmol/L (98-107); Globulin 2.8 g/dL (1.3-4.6); Glomerular Filtration Rate 33.3 mL/min (90-130); Glucose 246 mg/dL (65-115); NT Pro B Type Natriuretic Pept 920 pg/mL (0-125); Osmolality Calculated 289 mOsm/kg (285-295); Sodium 132 mmol/L (136-145); Total Bilirubin 0.6 mg/dL (0.15-1.2); Total Protein 6.8 g/dL (6.6-8.7)
[2020-12-17 22:09] LABS: Add Urine Microscopic? YES; Bilirubin Urine Neg (Negative); Blood Urine 2+ (Negative); Glucose Urine UA Norm (Normal); Ketones Urine Negative (Negative); Leukocyte Esterase Urine 2+ (Negative); Nitrate Urine Negative (Negative); Protein Urine Neg (Negative); Urine Color Yellow (Yellow); Urobilinogen Urine Norm (Negative); pH Urine 5 (5-7)
[2020-12-17 22:10] LABS: Add Urine Culture? Yes; Bacteria Urine 4+ /hpf; RBC Urine 15-25 /hpf (0-2); Squamous Epithelial Cell Urine 0-4 /hpf (0-5); WBC Urine >100 /hpf (0-5)
[2020-12-17] MEDS: cefTRIAXone 1,000 MG in sodium chloride 0.9% (plus) 50 ML 100 MG IV (22:49)
--- NOTE | 2020-12-17 23:11 | PM.HP ---
Providers/Chief Complaint Admitting Physician: Dr. 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 She is dependent on ADLs and her has been her caregiver. The last week or so he has been more fatigued than usual but he would not tell her anything about what was going on. She had not been getting her medications regularly. She reports that she has not had a bath for some time because he could not do it. He had been helping her with going to the bathroom and making sure she got food but not a lot else lately. She has developed some sores, one on each buttock, within the last month or 2. She continues to have challenges with managing her blood sugar, her diabetes and experiences frequent headaches. When she awoke this morning, she was unable to get a response from her . They sleep in different rooms. After a prolonged period of time with no response, she called 911 and an ambulance came out. They found that her had in his sleep. He did have a history of coronary artery disease with stents. The house had evidence of feces and urine as well as mice and rats. Attempts to find family that could care for her adequately were not successful. Senior services called the ER physician to report that she was unable to care for herself. She did get her medications during the middle of the day today I believe with help from one of her sisters in law. Throughout the day she has had progressively worsening headaches, which is an intermittent problem for her along with labile blood pressures. Back in October she had hypertensive emergency and was hospitalized for 4 days, required Cardene drip for initial control. She does not complain of chest pain or difficulty breathing currently. She denies any new neurological symptoms. Her bowels have been moving and she has been able to urinate though admits to some urinary frequency. She has had some pain in her suprapubic area and groin on the right. She was evaluated in the emergency room. Blood pressures were above ideal range but not consistent with recurrent hypertensive emergency. She was found to have an elevated white count and an abnormal urinalysis consistent with urinary tract infection in light of symptoms that she described. She does have a history of neurogenic bladder and previously had a suprapubic catheter although it came out at some point last year and has not been replaced. She has not been doing any intermittent self-catheterization as she feels like she is fully emptying her bladder. Denies any diarrhea. Has had some nausea and decreased appetite. She is being admitted for treatment as indicated and social sciences instructor evaluation to assist with future living arrangements given the unfortunate circumstances of today. Review of Systems Const: Reports: change in appetite; Denies: fever(s) or chills Eyes: Denies: change in vision ENMT: Reports: dry mouth; Denies: throat pain or nasal congestion Card: Reports: other (Left lower extremity is always cold); Denies: chest pain, palpitations or edema Resp: Denies: dyspnea, productive cough or non-productive cough GI: Reports: nausea; Denies: abdominal pain, vomiting, diarrhea or constipation : Reports: urinary frequency; Denies: difficulty voiding Skin/Breast: Reports: sores (Bilateral buttocks); Denies: rash or pruritus Neuro: Reports: headache(s), numbness in extremities and weakness in extremities (Chronic left hemiparesis, no change); Denies: dizziness Psych: Reports: depression and other (Admits some denial about 's , intermittent bouts of crying); Denies: anxiety Sterling/Lymph: Denies: easy bruising or easy bleeding Medications/Allergies Home Medications Medication Instructions Recorded Confirmed Last Taken Type amlodipine 10 mg tablet 10 mg PO DAILY@139912/01/19 12/17/20 12/17/20 History clopidogrel 75 mg tablet 75 mg PO DAILY@139912/01/19 12/17/20 12/17/20 History escitalopram oxalate 20 mg tablet 20 mg PO DAILY@139912/01/19 12/17/20 12/17/20 History fenofibrate nanocrystallized 48 mg 48 mg PO DAILY@139912/01/19 12/17/20 12/17/20 History tablet pravastatin 20 mg tablet 80 mg PO DAILY@139912/01/19 12/17/20 12/17/20 History solifenacin 5 mg tablet 5 mg PO DAILY@139912/01/19 12/17/20 12/17/20 History topiramate 100 mg tablet 100 mg PO DAILY@139912/01/19 12/17/20 12/17/20 History ondansetron HCl [Zofran] 4 mg PO Q6H PRN #20 tab 03/20/20 12/17/20 Unknown Rx cyclobenzaprine 10 mg PO TID PRN 10/12/20 12/17/20 12/16/20 History blood sugar diagnostic [Accu-Chek #10 ea 10/15/20 12/17/20 Unknown Rx Gaby Plus test strp] blood-glucose meter [Accu-Chek #1 ea 10/15/20 12/17/20 Unknown Rx Gaby Plus Meter] insulin lispro [Humalog KwikPen See Rx Instructions .ROUTE 10/15/20 12/17/20 12/16/20 Rx Insulin] .COMPLEX #15 ml lancets [Accu-Chek Multiclix #100 ea 10/15/20 12/17/20 Unknown Rx Lancet] metoprolol succinate 200 mg PO DAILY@14 12/17/20 12/17/20 12/17/20 History Allergies Allergy/AdvReac Type Severity Reaction Status Date / Time levofloxacin [From Levaquin] Allergy NA Verified 11/18/19 08:30 metronidazole [From Flagyl] Allergy NA Verified 11/18/19 08:30 miconazole Allergy NA Verified 11/18/19 08:30 Sulfa (Sulfonamide Allergy NA Verified 11/18/19 08:30 Antibiotics) PFSH Acute PFSH: Medical History (Updated 12/18/20 @ 06:58 by Andie Ac MD) CKD (chronic kidney disease) CVA (cerebral vascular accident) left hemiparesis Depression Diabetes mellitus, type II a1c 10/2020 12.7 Dyslipidemia History of seizure on topamax Hypertension hypertensive emergency 10/2020 Macular degeneration Neurogenic bladder previous suprapubic catheter, history of intermittent self catheterization, but not needed for some time per her report Obesity Recurrent UTI Surgical History (Updated 12/17/20 @ 23:08 by Andie Ac MD) H/O detached retina repair H/O oral surgery History of suprapubic catheter came out in 2019, not replaced S/P appendectomy S/P cataract surgery S/P cholecystectomy S/P knee surgery S/P shoulder surgery Family History Father Cancer Lymphoma Mother CAD (coronary artery disease) Diabetes Chronic kidney disease (CKD) Social History (Updated 12/18/20 @ 00:14 by Andie Ac MD) Smoking and tobacco status: current every day smoker Alcohol intake: never Substance/Drug Use: never Caregiver/support person: No Lives independently: No Marital status: Marital status details: 12/17/20 Current occupational status: disabled Vitals/I&O/Wt Last Vital Signs Temp 99.4 F 12/17/20 19:08 Pulse 75 12/17/20 22:39 Resp 20 H 12/17/20 19:08 BP 143/65 12/17/20 22:39 Pulse Ox 93 12/17/20 22:39 12/17/20 12/17/20 12/18/20 14:59 22:59 06:59 Intake Total 1000 / 1000 Balance 1000 / 1000 Weight last 48 hrs Weight 90.718 kg Physical Exam Const: OTHER: Awake and alert, somewhat flat affect alternating with significant grief during my examination. Oriented to person and place and situation. HENMT: OTHER: No evidence of facial trauma, she does have significant facial hair, nasopharynx is clear, oropharynx with dry mucous membranes Eye: OTHER: Pupils equally round and reactive to light, extraocular movements are intact Neck/C-Spine: OTHER: Large but supple Resp: OTHER: Clear to auscultation bilaterally, no rales orwheezes noted Cardio: OTHER: Regular rate and rhythm, distant heart sounds GI: OTHER: Abdomen soft, obese, mild suprapubic tenderness, positive bowel sounds : OTHER: Prior suprapubic catheter site noted with no drainage or surrounding erythema. Normal external genitalia. Root catheter is noted. It was placed in the ER today. Extremity: NARRATIVE EXTREMITY EXAM: No pitting edema. Left lower extremity is very cool to touch from proximal tibia to the toes. Pulses are dopplerable at dorsalis pedis and more marked. Patient states this is not a new finding. Neuro: OTHER: Face symmetric, speech clear, left hemiparesis, handgrip with right and able to move right leg some Psych: OTHER: Appears to be having appropriate response within the early stages of grief to the loss of her , predominantly grief alternating with denial right now Skin: OTHER: Skin is dry, there is some erythema with satellite lesions in the groin, predominantly on the right, dusky coloration of the left lower extremity but again pulses were able to be dopplered. Data : 12/17/20 19:15 12/17/20 19:15 A&P Assessment and plan (1) UTI (urinary tract infection): Present on admission Status: Acute Qualifiers: Urinary tract infection type: site unspecified Hematuria presence: without hematuria Qualified Code(s): N39.0 - Urinary tract infection, site not specified (2) Headache: Acutely posterior, chronic issue in various locations Status: Acute Qualifiers: Headache type: tension-type Headache chronicity pattern: acute headache Intractability: intractable Qualified Code(s): G44.201 - Tension-type headache, unspecified, intractable (3) Feeling grief: As well as denial in the early stages after the loss of her today Status: Acute (4) Requires assistance with activities of daily living (ADL): Due to prior stroke with left hemiparesis Status: Acute (5) Ulcer of sacral region, stage 1: 2 separate wounds approaching stage II on admission Status: Acute (6) Hypertension: Chronically difficult to control with episodes of hypertensive emergency/urgency Status: Chronic Qualifiers: Hypertension type: unspecified secondary hypertension Qualified Code(s): I15.9 - Secondary hypertension, unspecified (7) Diabetes mellitus, type II: Historically difficult to control, A1c in October was 12.7 Status: Chronic Qualifiers: Diabetes mellitus longterm insulin use: with longterm use Diabetes mellitus complication status: with kidney complications Diabetes mellitus complication detail: with chronic kidney disease Chronic kidney disease stage: stage 3 (moderate) Chronic kidney disease stage 3 subtype: stage 3b (GFR 30-44) Qualified Code(s): E11.21 - Type 2 diabetes mellitus with diabetic nephropathy; N18.32 - Chronic kidney disease, stage 3b; Z79.4 - senior care (current) use of insulin (8) CKD (chronic kidney disease): Stage IIIb, at baseline Status: Chronic Qualifiers: Chronic kidney disease stage: stage 3 (moderate) Chronic kidney disease stage 3 subtype: stage 3b (GFR 30-44) Qualified Code(s): N18.32 - Chronic kidney disease, stage 3b (9) Neurogenic bladder: History of previous suprapubic catheter, states she no longer requires in and out catheterization. I do wonder if she is not retaining as a contributor to her recurrent UTIs. Status: Chronic Additional A&P Information Patient admission Rocephin for urinary tract infection Monitor post void residuals for need to reinstitute intermittent self-catheterization versus replacement of suprapubic catheter Continue home Vesicare, may use home supply IV fluids Follow-up urine culture Continue usual medications for headache presently which include Tylenol and Flexeril, can add a alternatives if needed Monitor grief response closely for need to intervene. She is chronically on escitalopram Continue home amlodipine and metoprolol, pressures for need to intervene New home statin and fenofibrate therapy labs Plavix Sliding scale insulin, add long-acting insulin, monitor blood sugars Continue Topamax which she is on for history of seizures Provide appropriate wound care to bilateral wounds on buttocks Nystatin powder to groin Subcu heparin for DVT prophylaxis Case management to assist with disposition plans as she cannot go back to living at home due to the of her . She was able to find somebody to take care of her animals. Full code Attestations Medical Necessity Statement*: Anticipated stay greater than 2 midnights and this patient who has urinary tract infection currently requiring IV antibiotics, difficult to control diabetes and hypertension who unfortunately lost her overnight. is her caregiver and she is dependent on ADLs. Alternative living arrangements will have to be discerned as she is unable to care for herself. Adult services notified the hospital of patient's inability to reside where she has been for safety and health care reasons. Coding Level of Care Code Acute Title Curative Specialist for g Fwd Diagnoses UTI (urinary tract infection) N39.0 Urinary tract infection type: site unspecified Hematuria presence: without hematuria Headache G44.201 Headache type: tension-type Headache chronicity pattern: acute headache Intractability: intractable Feeling grief F43.21 Requires assistance with activities of daily living (ADL) Z74.1 Ulcer of sacral region, stage 1 L98.429 Hypertension I15.9 Hypertension type: unspecified secondary hypertension Diabetes mellitus, type II E11.21; N18.32; Z79.4 Diabetes mellitus superintendent terminal insulin use: with superintendent terminal use Diabetes mellitus complication status: with kidney complications Diabetes mellitus complication detail: with chronic kidney disease Chronic kidney disease stage: stage 3 (moderate) Chronic kidney disease stage 3 subtype: stage 3b (GFR 30-44) CKD (chronic kidney disease) N18.32 Chronic kidney disease stage: stage 3 (moderate) Chronic kidney disease stage 3 subtype: stage 3b (GFR 30-44) Neurogenic bladder N31.9
[2020-12-18] VITALS: BP 135/83; PULSE 73; RESP 19; TEMP 36.9; O2SAT 97
[2020-12-18] MEDS: sodium chloride 0.9% 1,000 ML 75 ML IV (00:33)
[2020-12-18] MEDS: insulin glargine 100 units/1 mL 5 UNIT SUBCUT ×2 (01:48→21:57)
[2020-12-18 04:00] VITALS: BP 148/82; PULSE 70; RESP 24; TEMP 36.4; O2SAT 93
[2020-12-18 06:45] LABS: Glucose Point of Care 233 mg/dL (70-110)
[2020-12-18 08:00] VITALS: BP 126/66; PULSE 77; RESP 17; TEMP 37.1; O2SAT 90
--- NOTE | 2020-12-18 10:08 | PC.CHAP ---
Pastoral Care Encounter/Spiritual Assessment Type of Contact [] Declined order picker visit [] Patient/Family/Request visit [] Outpatient visit [] Follow-up visit [] Physician referral [] Code/Alert [X] Routine visit [] Staff referral [] Actively dying [] Patient sleeping [] Family support [] [] Out of room [] Palliative care [] [] Receiving care in room [] Pre-surgical visit [] Trauma [] Long length of stay [] ICU visit [] Other: Relational/Emotional Strength [X] Patient feels connected with others/family/visitors/staff [X] Distress [] Loneliness/isolation [] Abandonment Spirituality of Patient [X] Person of Micki [] Attends Religious of their Micki [X] Believes in Prayer [] Reads Bible or Hinduism materials [X] There are Spiritual issues to be addressed Tapper Balance Wheel Screw Hole Interventions [X] Prayer [X] Active listening [X] Non-anxious presence [X] Spiritual/emotional support [X] Crisis/trauma care [X] Spiritual counseling [X] Bereavement support [] Provided bereavement packet [] Provided Bible/devotional materials [] Provided toy/stuffed animal, coloring book to patient or family member [] Provided Communion [] Anointing/[place] [] Salvation [X] Completed spiritual assessment [] Other: Impact on Illness or Injury [] Angry [X] Fearful [] Anxious [X] Often cries [] Exhaustion [] Unable to work [] Unable to attend roman catholic [] Unable to walk/stand [] Unable to read [] Unable to drive [] Unable to eat/drink [] Unable to sleep [X] Unable to be with family [] Patient intubated [] Other: Summary Immediately upon introducing myself the PT began to cry. She explained she had lost her SO of 36 years yesterday morning. She had called to him but he failed to respond and he was found in his bed. She is confined to a wheelchair and unable to get around her home on her own. He was her sole gas load dispatcher. She is now making arrangements to enter into a intermodal customer service care facility. Due to the shock of what had happened her blood pressure soared and she was admitted to address it and prevent a stroke, which she has a history of. She does have family and friends to offer support during her time of grief. She stated she has not attended caodaism in the area but would like to connect with one in which she feels a sense of community. Time spent with patient 20min> I met with PT for about 15 min and then staff entered so I excused myself but told her I would return. Upon my return, I spent additional time with her and offered prayer.
[2020-12-18] MEDS: acetaminophen 325 mg Tablet 650 MG PO (11:16)
[2020-12-18] MEDS: nystatin powder 15 gm Btl 1 APPLIC TOPICAL ×2 (11:18→17:25)
[2020-12-18 11:55] LABS: Glucose Point of Care 179 mg/dL (70-110)
[2020-12-18 12:00] VITALS: BP 155/81; PULSE 73; RESP 17; TEMP 36.7; O2SAT 90
[2020-12-18] MEDS: atorvastatin 40 mg Tablet 20 MG PO (13:51)
[2020-12-18] MEDS: fenofibrate 48 mg Tablet PO (13:51)
[2020-12-18] MEDS: clopidogrel 75 mg Tablet PO (13:51)
[2020-12-18] MEDS: metoprolol succinate ER (24 HR) 100 mg Tablet 200 MG PO (13:51)
[2020-12-18] MEDS: cyclobenzaprine 10 mg Tablet PO (13:51)
[2020-12-18] MEDS: amlodipine 10 mg Tablet PO (13:53)
[2020-12-18] MEDS: escitalopram 10 mg Tablet 20 MG PO (13:53)
[2020-12-18] MEDS: topiramate 100 mg Tablet PO (13:53)
[2020-12-18 15:55] VITALS: BP 150/77; PULSE 73; RESP 17; TEMP 36.6; O2SAT 94
--- NOTE | 2020-12-18 16:05 | P.PN_ITS ---
Subjective Subjective: Interval history: Overnight labs and H&P reviewed. No acute interval events. Patient was noted to have difficulty swallowing her breakfast this morning. Speech eval has been ordered. Blood pressure remains well controlled. She is afebrile Medications: Reviewed: Yes Vitals/I&O/Wt Last Vital Signs Temp 97.9 F 12/18/20 15:55 Pulse 73 12/18/20 15:55 Resp 17 12/18/20 15:55 BP 150/77 12/18/20 15:55 Pulse Ox 94 12/18/20 15:55 12/18/20 12/18/20 12/18/20 06:59 14:59 22:59 Intake Total 650 / 1650 1790 / 1790 Output Total 720 / 720 Balance -70 / 930 1790 / 1790 Weight last 48 hrs Weight 90.718 kg Physical Exam Narrative: EXAM NARRATIVE: XAM NARRATIVE: GEN: Awake, alert and oriented, no acute distress CVS: S1S2 N RS: CTA B/L anteriorly Abd: Soft, nt/nd , bs+ GRADES 9 THRU 12 VISITING TEACHER: Left-sided facial nerve palsy, bilateral lower extremity power 2 out of 5, gross upper extremities however right upper extremity is weaker than the left Data : 12/17/20 19:15 12/17/20 19:15 A&P Assessment and plan (1) UTI (urinary tract infection): Present on admission Status: Acute Qualifiers: Urinary tract infection type: site unspecified Hematuria presence: without hematuria Qualified Code(s): N39.0 - Urinary tract infection, site not specified (2) Headache: Acutely posterior, chronic issue in various locations Status: Acute Qualifiers: Headache type: tension-type Headache chronicity pattern: acute headache Intractability: intractable Qualified Code(s): G44.201 - Tension-type headache, unspecified, intractable (3) Feeling grief: As well as denial in the early stages after the loss of her today Status: Acute (4) Requires assistance with activities of daily living (ADL): Due to prior stroke with left hemiparesis Status: Acute (5) Ulcer of sacral region, stage 1: 2 separate wounds approaching stage II on admission Status: Acute (6) Hypertension: Chronically difficult to control with episodes of hypertensive emergency/urgency Status: Chronic Qualifiers: Hypertension type: unspecified secondary hypertension Qualified Code(s): I15.9 - Secondary hypertension, unspecified (7) Diabetes mellitus, type II: Historically difficult to control, A1c in October was 12.7 Status: Chronic Qualifiers: Diabetes mellitus penitentiary insulin use: with buttermaker continuous churn use Diabetes mellitus complication status: with kidney complications Diabetes mellitus complication detail: with chronic kidney disease Chronic kidney disease stage: stage 3 (moderate) Chronic kidney disease stage 3 subtype: stage 3b (GFR 30-44) Qualified Code(s): E11.21 - Type 2 diabetes mellitus with diabetic nephropathy; N18.32 - Chronic kidney disease, stage 3b; Z79.4 - long-term (current) use of insulin (8) CKD (chronic kidney disease): Stage IIIb, at baseline Status: Chronic Qualifiers: Chronic kidney disease stage: stage 3 (moderate) Chronic kidney disease stage 3 subtype: stage 3b (GFR 30-44) Qualified Code(s): N18.32 - Chronic kidney disease, stage 3b (9) Neurogenic bladder: History of previous suprapubic catheter, states she no longer requires in and out catheterization. I do wonder if she is not retaining as a contributor to her recurrent UTIs. Status: Chronic Additional A&P Information Continue Rocephin for urinary tract infection Monitor post void residuals for need to reinstitute intermittent self- catheterization versus replacement of suprapubic catheter Continue home Vesicare, may use home supply IV fluids Follow-up urine culture Continue usual medications for headache presently which include Tylenol and Flexeril, can add a alternatives if needed Monitor grief response closely for need to intervene. She is chronically on escitalopram Continue home amlodipine and metoprolol, pressures for need to intervene New home statin and fenofibrate therapy labs Plavix Sliding scale insulin, add long-acting insulin, monitor blood sugars Continue Topamax which she is on for history of seizures Provide appropriate wound care to bilateral wounds on buttocks Nystatin powder to groin Subcu heparin for DVT prophylaxis Case management to assist with disposition plans as she cannot go back to living at home due to the of her . She was able to find somebody to take care of her animals. Full code Attestations Medical Necessity Statement*: Disposition planning, no suitable caregivers at home, depenedent in ADLs, cannot safely [facility] Coding Level of Care Code Acute Special Agent Secret Service for Ish Sawyer Diagnoses UTI (urinary tract infection) N39.0 Urinary tract infection type: site unspecified Hematuria presence: without hematuria Headache G44.201 Headache type: tension-type Headache chronicity pattern: acute headache Intractability: intractable Feeling grief F43.21 Requires assistance with activities of daily living (ADL) Z74.1 Ulcer of sacral region, stage 1 L98.429 Hypertension I15.9 Hypertension type: unspecified secondary hypertension Diabetes mellitus, type II E11.21; N18.32; Z79.4 Diabetes mellitus buttermaker continuous churn insulin use: with penitentiary use Diabetes mellitus complication status: with kidney complications Diabetes mellitus complication detail: with chronic kidney disease Chronic kidney disease stage: stage 3 (moderate) Chronic kidney disease stage 3 subtype: stage 3b (GFR 30-44) CKD (chronic kidney disease) N18.32 Chronic kidney disease stage: stage 3 (moderate) Chronic kidney disease stage 3 subtype: stage 3b (GFR 30-44) Neurogenic bladder N31.9
[2020-12-18 17:14] LABS: Glucose Point of Care 287 mg/dL (70-110)
[2020-12-18 20:00] VITALS: BP 128/71; PULSE 72; RESP 19; TEMP 36.9; O2SAT 93
[2020-12-18 20:33] LABS: Glucose Point of Care 188 mg/dL (70-110)
[2020-12-18] MEDS: cefTRIAXone 1,000 MG in sodium chloride 0.9% (plus) 50 ML 100 MG IV (21:58)
[2020-12-18] MEDS: heparin 5,000 unit/mL INJ 1 mL 5000 UNIT SUBCUT (23:38)
[2020-12-19] VITALS: BP 123/69; PULSE 68; RESP 19; TEMP 36.8; O2SAT 91
[2020-12-19 04:00] VITALS: BP 157/83; PULSE 69; RESP 20; TEMP 36.4; O2SAT 98
[2020-12-19 05:14] LABS: Basophils % 0.5 %; Eosinophils # 0.1 10^3/uL (0.0-0.8); Eosinophils % 1.2 %; Hematocrit 37.3 % (37.0-47.0); Hemoglobin 11.8 g/dL (11.5-15.3); Lymphocytes % 22.8 %; Mean Corpuscular HGB Conc 31.6 g/dL (30.0-36.0); Mean Corpuscular Hemoglobin 27.4 pg (28.0-34.0); Mean Corpuscular Volume 86.5 fL (81-99); Mean Platelet Volume 9.6 fL (7.4-10.4); Monocytes # 0.5 10^3/uL (0.2-0.9); Monocytes % 6.3 %; Neutrophils # 5.94 10^3/uL (1.8-7.7); Neutrophils % 68.6 %; Nucleated Red Blood Cells % 0 %; Platelet Count 260 10^3/cmm (130-400); Red Blood Count 4.31 10^6/uL (4.1-5.3); Red Cell Distribution Width 13.5 % (12.1-15.1); White Blood Count 8.6 10^3/uL (4.0-10.0)
[2020-12-19 05:53] LABS: Alanine Aminotransferase 6 U/L (0-33); Albumin Level 3.2 g/dL (3.5-5.2); Alkaline Phosphatase 87 IU/L (35-105); Anion Gap 15.8 (5-19); Aspartate Amino Transferase 7 U/L (0-32); Blood Urea Nitrogen 38 mg/dL (6-20); Calcium 8.5 mg/dL (8.5-10.5); Carbon Dioxide 21 mmol/L (22-29); Chloride 103 mmol/L (98-107); Glomerular Filtration Rate 25.8 mL/min (90-130); Glucose 292 mg/dL (65-115); Osmolality Calculated 300 mOsm/kg (285-295); Potassium 4.8 mmol/L (3.5-5.1); Sodium 135 mmol/L (136-145); Total Bilirubin 0.2 mg/dL (0.15-1.2); Total Protein 6.2 g/dL (6.6-8.7)
[2020-12-19 06:35] LABS: Glucose Point of Care 250 mg/dL (70-110)
[2020-12-19 08:00] VITALS: BP 133/85; PULSE 86; RESP 16; TEMP 36.6; O2SAT 97
[2020-12-19] MEDS: nystatin powder 15 gm Btl 1 APPLIC TOPICAL ×2 (09:24→17:48)
[2020-12-19 10:58] LABS: Glucose Point of Care 278 mg/dL (70-110)
[2020-12-19 11:30] VITALS: BP 114/78; PULSE 78; RESP 18; TEMP 37.1; O2SAT 92
--- NOTE | 2020-12-19 11:48 | PM.PN ---
Subjective Subjective: Interval history: No acute event overnight. Patient was seen and examined this morning. Speech evaluation was done: She was upgraded to mechanical soft from dysphagia ground. Her Vitals and labs have been reviewed. Medications: Reviewed: Yes Vitals/I&O/Wt Last Vital Signs Temp 98.7 F 12/19/20 11:30 Pulse 78 12/19/20 11:30 Resp 18 12/19/20 11:30 BP 114/78 12/19/20 11:30 Pulse Ox 92 12/19/20 11:30 12/18/20 12/19/20 12/19/20 22:59 06:59 14:59 Intake Total 410 / 2200 0 / 0 Output Total 550 / 550 540 / 1090 Balance -140 / 1650 -540 / 1110 0 / 0 Weight last 48 hrs Weight 90.718 kg Physical Exam Narrative: EXAM NARRATIVE: Alert , Awake , Oriented. HENMT: COMMON NORMALS: normocephalic and atraumatic HEAD & SCALP: normocephalic and atraumatic Resp: COMMON NORMALS: clear to auscultation bilaterally EFFORT & INSPECTION: Yes symmetric chest movement AUSCULTATION: clear to auscultation bilaterally Cardio: COMMON NORMALS: regular rate, regular rhythm, S1 normal heart sound present, S2 normal heart sound present, No gallops present (Cardio), No murmurs present (Cardio), No rub (Cardio) and Peripheral pulses 2+ throughout RATE: regular rate RHYTHM: regular rhythm HEART SOUNDS: S1 normal heart sound present and S2 normal heart sound present PERIPHERAL PULSES: Peripheral pulses 2+ throughout GI: COMMON NORMALS: Normal to inspection, nondistended, normoactive bowel sounds present, Soft to palpation, non-tender, No hepatosplenomegaly present and no masses AUSCULTATION: Yes normoactive bowel sounds PALPATION: Yes Soft to palpation and Yes No hepatosplenomegaly present RECTAL EXAM: deferred Extremity: COMMON NORMALS: no clubbing, cyanosis or edema and no pedal edema Neuro: OTHER: Left-sided facial nerve palsy, bilateral lower extremity power 2 out of 5, gross upper extremities however right upper extremity is weaker than the left Urinary Catheter Management^: Root: Cath Placed During This Visit: no Reason for Continuing Indwelling Catheter: Acute Urinary Retention or Obstruction Data : 12/19/20 04:37 12/19/20 04:37 Micro: Microbiology 12/17/20 20:24 Urine Culture - Preliminary Urine Catheterized Gram Negative Rods A&P Assessment and plan (1) UTI (urinary tract infection): Present on admission Status: Acute Qualifiers: Urinary tract infection type: site unspecified Hematuria presence: without hematuria Qualified Code(s): N39.0 - Urinary tract infection, site not specified (2) Headache: Acutely posterior, chronic issue in various locations Status: Acute Qualifiers: Headache type: tension-type Headache chronicity pattern: acute headache Intractability: intractable Qualified Code(s): G44.201 - Tension-type headache, unspecified, intractable (3) Feeling grief: As well as denial in the early stages after the loss of her today Status: Acute (4) Requires assistance with activities of daily living (ADL): Due to prior stroke with left hemiparesis Status: Acute (5) Ulcer of sacral region, stage 1: 2 separate wounds approaching stage II on admission Status: Acute (6) Hypertension: Chronically difficult to control with episodes of hypertensive emergency/urgency Status: Chronic Qualifiers: Hypertension type: unspecified secondary hypertension Qualified Code(s): I15.9 - Secondary hypertension, unspecified (7) Diabetes mellitus, type II: Historically difficult to control, A1c in October was 12.7 Status: Chronic Qualifiers: Diabetes mellitus middle or intermediate school principal insulin use: with middle or intermediate school principal use Diabetes mellitus complication status: with kidney complications Diabetes mellitus complication detail: with chronic kidney disease Chronic kidney disease stage: stage 3 (moderate) Chronic kidney disease stage 3 subtype: stage 3b (GFR 30-44) Qualified Code(s): E11.21 - Type 2 diabetes mellitus with diabetic nephropathy; N18.32 - Chronic kidney disease, stage 3b; Z79.4 - correction (current) use of insulin (8) CKD (chronic kidney disease): Stage IIIb, at baseline Status: Chronic Qualifiers: Chronic kidney disease stage: stage 3 (moderate) Chronic kidney disease stage 3 subtype: stage 3b (GFR 30-44) Qualified Code(s): N18.32 - Chronic kidney disease, stage 3b (9) Neurogenic bladder: History of previous suprapubic catheter, states she no longer requires in and out catheterization. I do wonder if she is not retaining as a contributor to her recurrent UTIs. Status: Chronic Additional A&P Information Continue Rocephin for urinary tract infection Monitor post void residuals for need to reinstitute intermittent self-catheterization versus replacement of suprapubic catheter Continue home Vesicare, may use home supply IV fluids Follow-up urine culture Continue usual medications for headache presently which include Tylenol and Flexeril, can add a alternatives if needed Monitor grief response closely for need to intervene. She is chronically on escitalopram Continue home amlodipine and metoprolol, pressures for need to intervene New home statin and fenofibrate therapy labs Plavix Sliding scale insulin, add long-acting insulin, monitor blood sugars Continue Topamax which she is on for history of seizures Provide appropriate wound care to bilateral wounds on buttocks Nystatin powder to groin Subcu heparin for DVT prophylaxis Case management to assist with disposition plans as she cannot go back to living at home due to the of her . She was able to find somebody to take care of her animals. Full code Attestations Medical Necessity Statement*: Disposition planning, no suitable caregivers at home, depenedent in ADLs, cannot safely retrun home to [facility], located [facility] Coding Level of Care Code Acute Call Or Contact Centre Coach for Chg Fwd Diagnoses UTI (urinary tract infection) N39.0 Urinary tract infection type: site unspecified Hematuria presence: without hematuria Headache G44.201 Headache type: tension-type Headache chronicity pattern: acute headache Intractability: intractable Feeling grief F43.21 Requires assistance with activities of daily living (ADL) Z74.1 Ulcer of sacral region, stage 1 L98.429 Hypertension I15.9 Hypertension type: unspecified secondary hypertension Diabetes mellitus, type II E11.21; N18.32; Z79.4 Diabetes mellitus chcf insulin use: with chcf use Diabetes mellitus complication status: with kidney complications Diabetes mellitus complication detail: with chronic kidney disease Chronic kidney disease stage: stage 3 (moderate) Chronic kidney disease stage 3 subtype: stage 3b (GFR 30-44) CKD (chronic kidney disease) N18.32 Chronic kidney disease stage: stage 3 (moderate) Chronic kidney disease stage 3 subtype: stage 3b (GFR 30-44) Neurogenic bladder N31.9
[2020-12-19] MEDS: topiramate 100 mg Tablet PO (13:50)
[2020-12-19] MEDS: atorvastatin 40 mg Tablet 20 MG PO (13:50)
[2020-12-19] MEDS: amlodipine 10 mg Tablet PO (13:50)
[2020-12-19] MEDS: metoprolol succinate ER (24 HR) 100 mg Tablet 200 MG PO (13:50)
[2020-12-19] MEDS: escitalopram 10 mg Tablet 20 MG PO (13:50)
[2020-12-19] MEDS: clopidogrel 75 mg Tablet PO (13:51)
[2020-12-19] MEDS: fenofibrate 48 mg Tablet PO (13:54)
[2020-12-19 16:00] VITALS: BP 127/87; PULSE 68; RESP 18; TEMP 36.9; O2SAT 97
[2020-12-19 17:00] LABS: Glucose Point of Care 136 mg/dL (70-110)
[2020-12-19 20:00] VITALS: BP 150/78; PULSE 63; RESP 18; TEMP 36.4; O2SAT 93
[2020-12-19] MEDS: insulin glargine 100 units/1 mL 5 UNIT SUBCUT (20:56)
[2020-12-19] MEDS: cyclobenzaprine 10 mg Tablet PO (20:56)
[2020-12-19 21:27] LABS: Glucose Point of Care 252 mg/dL (70-110)
[2020-12-19] MEDS: cefTRIAXone 1,000 MG in sodium chloride 0.9% (plus) 50 ML 100 MG IV (23:05)
[2020-12-20] VITALS: BP 117/64; PULSE 58; RESP 18; TEMP 36.8; O2SAT 94
[2020-12-20 05:58] VITALS: BP 123/80; PULSE 60; RESP 18; TEMP 36.6; O2SAT 91
[2020-12-20 07:07] LABS: Glucose Point of Care 192 mg/dL (70-110)
[2020-12-20 07:42] VITALS: BP 135/75; PULSE 59; RESP 18; TEMP 36.6; O2SAT 92
[2020-12-20] MEDS: nystatin powder 15 gm Btl 1 APPLIC TOPICAL ×2 (08:30→17:23)
--- NOTE | 2020-12-20 09:22 | PC.SOCIAL ---
IMM Update Pg.2 of [facility] Updated and reviewed with patient who verbalized understanding, copy provided.
[2020-12-20 10:45] VITALS: BP 128/63; PULSE 61; RESP 17; TEMP 36.6; O2SAT 95
[2020-12-20 10:48] LABS: Glucose Point of Care 269 mg/dL (70-110)
--- NOTE | 2020-12-20 11:05 | PM.PN ---
Subjective Subjective: Interval history: No acute event overnight. Patient was seen and examined this morning. Speech evaluation was done: She was upgraded to mechanical soft from dysphagia ground. Her Vitals and labs have been reviewed. Medications: Reviewed: Yes Vitals/I&O/Wt Last Vital Signs Temp 97.8 F 12/20/20 10:45 Pulse 61 12/20/20 10:45 Resp 17 12/20/20 10:45 BP 128/63 12/20/20 10:45 Pulse Ox 95 12/20/20 10:45 12/19/20 12/20/20 12/20/20 22:59 06:59 14:59 Intake Total 600 / 1080 290 / 1370 240 / 240 Output Total 2475 / 2475 Balance -1875 / -1395 290 / -1105 240 / 240 Physical Exam Narrative: EXAM NARRATIVE: Alert , Awake , Oriented. HENMT: COMMON NORMALS: normocephalic and atraumatic HEAD & SCALP: normocephalic and atraumatic Resp: COMMON NORMALS: clear to auscultation bilaterally EFFORT & INSPECTION: Yes symmetric chest movement AUSCULTATION: clear to auscultation bilaterally Cardio: COMMON NORMALS: regular rate, regular rhythm, S1 normal heart sound present, S2 normal heart sound present, No gallops present (Cardio), No murmurs present (Cardio), No rub (Cardio) and Peripheral pulses 2+ throughout RATE: regular rate RHYTHM: regular rhythm HEART SOUNDS: S1 normal heart sound present and S2 normal heart sound present PERIPHERAL PULSES: Peripheral pulses 2+ throughout GI: COMMON NORMALS: Normal to inspection, nondistended, normoactive bowel sounds present, Soft to palpation, non-tender, No hepatosplenomegaly present and no masses AUSCULTATION: Yes normoactive bowel sounds PALPATION: Yes Soft to palpation and Yes No hepatosplenomegaly present RECTAL EXAM: deferred Extremity: COMMON NORMALS: no clubbing, cyanosis or edema and no pedal edema Neuro: OTHER: Left-sided facial nerve palsy, bilateral lower extremity power 2 out of 5, gross upper extremities however right upper extremity is weaker than the left Urinary Catheter Management^: Root: Cath Placed During This Visit: no Reason for Continuing Indwelling Catheter: Acute Urinary Retention or Obstruction Data : 12/19/20 04:37 12/19/20 04:37 Micro: Microbiology 12/17/20 20:24 Urine Culture - Final Urine Catheterized Escherichia coli A&P Assessment and plan (1) UTI (urinary tract infection): Present on admission Status: Acute Qualifiers: Urinary tract infection type: site unspecified Hematuria presence: without hematuria Qualified Code(s): N39.0 - Urinary tract infection, site not specified (2) Headache: Acutely posterior, chronic issue in various locations Status: Acute Qualifiers: Headache type: tension-type Headache chronicity pattern: acute headache Intractability: intractable Qualified Code(s): G44.201 - Tension-type headache, unspecified, intractable (3) Feeling grief: As well as denial in the early stages after the loss of her today Status: Acute (4) Requires assistance with activities of daily living (ADL): Due to prior stroke with left hemiparesis Status: Acute (5) Ulcer of sacral region, stage 1: 2 separate wounds approaching stage II on admission Status: Acute (6) Hypertension: Chronically difficult to control with episodes of hypertensive emergency/urgency Status: Chronic Qualifiers: Hypertension type: unspecified secondary hypertension Qualified Code(s): I15.9 - Secondary hypertension, unspecified (7) Diabetes mellitus, type II: Historically difficult to control, A1c in October was 12.7 Status: Chronic Qualifiers: Diabetes mellitus prison insulin use: with exterminator use Diabetes mellitus complication status: with kidney complications Diabetes mellitus complication detail: with chronic kidney disease Chronic kidney disease stage: stage 3 (moderate) Chronic kidney disease stage 3 subtype: stage 3b (GFR 30-44) Qualified Code(s): E11.21 - Type 2 diabetes mellitus with diabetic nephropathy; N18.32 - Chronic kidney disease, stage 3b; Z79.4 - technician terminal and repeater (current) use of insulin (8) CKD (chronic kidney disease): Stage IIIb, at baseline Status: Chronic Qualifiers: Chronic kidney disease stage: stage 3 (moderate) Chronic kidney disease stage 3 subtype: stage 3b (GFR 30-44) Qualified Code(s): N18.32 - Chronic kidney disease, stage 3b (9) Neurogenic bladder: History of previous suprapubic catheter, states she no longer requires in and out catheterization. I do wonder if she is not retaining as a contributor to her recurrent UTIs. Status: Chronic Additional A&P Information Continue Rocephin for urinary tract infection Monitor post void residuals for need to reinstitute intermittent self-catheterization versus replacement of suprapubic catheter Continue home Vesicare, may use home supply IV fluids Follow-up urine culture Continue usual medications for headache presently which include Tylenol and Flexeril, can add a alternatives if needed Monitor grief response closely for need to intervene. She is chronically on escitalopram Continue home amlodipine and metoprolol, pressures for need to intervene New home statin and fenofibrate therapy labs Plavix Sliding scale insulin, add long-acting insulin, monitor blood sugars Continue Topamax which she is on for history of seizures Provide appropriate wound care to bilateral wounds on buttocks Nystatin powder to groin Subcu heparin for DVT prophylaxis Case management to assist with disposition plans as she cannot go back to living at home due to the of her . She was able to find somebody to take care of her animals. Full code Attestations Medical Necessity Statement*: Disposition planning, no suitable caregivers at home, depenedent in ADLs, cannot safely retrun home to [facility] living Coding Level of Care Code Acute Pyrometer Temperature Regulator for Chg Fwd Diagnoses UTI (urinary tract infection) N39.0 Urinary tract infection type: site unspecified Hematuria presence: without hematuria Headache G44.201 Headache type: tension-type Headache chronicity pattern: acute headache Intractability: intractable Feeling grief F43.21 Requires assistance with activities of daily living (ADL) Z74.1 Ulcer of sacral region, stage 1 L98.429 Hypertension I15.9 Hypertension type: unspecified secondary hypertension Diabetes mellitus, type II E11.21; N18.32; Z79.4 Diabetes mellitus exterminator insulin use: with prison use Diabetes mellitus complication status: with kidney complications Diabetes mellitus complication detail: with chronic kidney disease Chronic kidney disease stage: stage 3 (moderate) Chronic kidney disease stage 3 subtype: stage 3b (GFR 30-44) CKD (chronic kidney disease) N18.32 Chronic kidney disease stage: stage 3 (moderate) Chronic kidney disease stage 3 subtype: stage 3b (GFR 30-44) Neurogenic bladder N31.9
[2020-12-20] MEDS: escitalopram 10 mg Tablet 20 MG PO (14:47)
[2020-12-20] MEDS: metoprolol succinate ER (24 HR) 100 mg Tablet 200 MG PO (14:47)
[2020-12-20] MEDS: fenofibrate 48 mg Tablet PO (14:47)
[2020-12-20] MEDS: amlodipine 10 mg Tablet PO (14:47)
[2020-12-20] MEDS: atorvastatin 40 mg Tablet 20 MG PO (14:47)
[2020-12-20] MEDS: topiramate 100 mg Tablet PO (14:47)
[2020-12-20] MEDS: clopidogrel 75 mg Tablet PO (14:47)
[2020-12-20] MEDS: cyclobenzaprine 10 mg Tablet PO (14:53)
[2020-12-20 16:00] VITALS: BP 159/88; PULSE 65; RESP 17; TEMP 36.6; O2SAT 96
[2020-12-20 16:35] LABS: Glucose Point of Care 174 mg/dL (70-110)
[2020-12-20 19:34] VITALS: BP 137/75; PULSE 68; RESP 19; TEMP 36.9; O2SAT 92
[2020-12-20 20:36] LABS: Glucose Point of Care 279 mg/dL (70-110)
[2020-12-20] MEDS: cefTRIAXone 1,000 MG in sodium chloride 0.9% (plus) 50 ML 100 MG IV (23:00)
[2020-12-20] MEDS: heparin 5,000 unit/mL INJ 1 mL 5000 UNIT SUBCUT (23:01)
[2020-12-20] MEDS: insulin glargine 100 units/1 mL 5 UNIT SUBCUT (23:03)
[2020-12-21] VITALS: BP 135/75; PULSE 65; RESP 18; TEMP 36.6; O2SAT 92
[2020-12-21 04:00] VITALS: BP 126/75; PULSE 56; RESP 18; TEMP 36.6; O2SAT 93
[2020-12-21 06:26] LABS: Glucose Point of Care 140 mg/dL (70-110)
[2020-12-21 08:00] VITALS: BP 139/67; PULSE 69; RESP 17; TEMP 36.8; O2SAT 92
[2020-12-21] MEDS: nystatin powder 15 gm Btl 1 APPLIC TOPICAL (08:44)
[2020-12-21 11:26] LABS: Glucose Point of Care 305 mg/dL (70-110)
--- NOTE | 2020-12-21 11:41 | PM.PN ---
Subjective Subjective: Interval history: No acute event overnight. Patient was seen and examined this morning. Medications: Reviewed: Yes Vitals/I&O/Wt Last Vital Signs Temp 98.3 F 12/21/20 08:00 Pulse 69 12/21/20 08:00 Resp 17 12/21/20 08:00 BP 139/67 12/21/20 08:00 Pulse Ox 92 12/21/20 08:00 12/20/20 12/21/20 12/21/20 22:59 06:59 14:59 Intake Total 120 / 720 50 / 770 480 / 480 Output Total 650 / 650 Balance 120 / 720 -600 / 120 480 / 480 Physical Exam Narrative: EXAM NARRATIVE: Alert , Awake , Oriented. HENMT: COMMON NORMALS: normocephalic and atraumatic HEAD & SCALP: normocephalic and atraumatic Resp: COMMON NORMALS: clear to auscultation bilaterally EFFORT & INSPECTION: Yes symmetric chest movement AUSCULTATION: clear to auscultation bilaterally Cardio: COMMON NORMALS: regular rate, regular rhythm, S1 normal heart sound present, S2 normal heart sound present, No gallops present (Cardio), No murmurs present (Cardio), No rub (Cardio) and Peripheral pulses 2+ throughout RATE: regular rate RHYTHM: regular rhythm HEART SOUNDS: S1 normal heart sound present and S2 normal heart sound present PERIPHERAL PULSES: Peripheral pulses 2+ throughout GI: COMMON NORMALS: Normal to inspection, nondistended, normoactive bowel sounds present, Soft to palpation, non-tender, No hepatosplenomegaly present and no masses AUSCULTATION: Yes normoactive bowel sounds PALPATION: Yes Soft to palpation and Yes No hepatosplenomegaly present RECTAL EXAM: deferred Extremity: COMMON NORMALS: no clubbing, cyanosis or edema and no pedal edema Neuro: OTHER: Left-sided facial nerve palsy, bilateral lower extremity power 2 out of 5, gross upper extremities however right upper extremity is weaker than the left Urinary Catheter Management^: Root: Cath Placed During This Visit: no Reason for Continuing Indwelling Catheter: Other Data : 12/19/20 04:37 12/19/20 04:37 Micro: Microbiology 12/17/20 20:24 Urine Culture - Final Urine Catheterized Escherichia coli A&P Assessment and plan (1) UTI (urinary tract infection): Present on admission Status: Acute Qualifiers: Urinary tract infection type: site unspecified Hematuria presence: without hematuria Qualified Code(s): N39.0 - Urinary tract infection, site not specified (2) Headache: Acutely posterior, chronic issue in various locations Status: Acute Qualifiers: Headache type: tension-type Headache chronicity pattern: acute headache Intractability: intractable Qualified Code(s): G44.201 - Tension-type headache, unspecified, intractable (3) Feeling grief: As well as denial in the early stages after the loss of her today Status: Acute (4) Requires assistance with activities of daily living (ADL): Due to prior stroke with left hemiparesis Status: Acute (5) Ulcer of sacral region, stage 1: 2 separate wounds approaching stage II on admission Status: Acute (6) Hypertension: Chronically difficult to control with episodes of hypertensive emergency/urgency Status: Chronic Qualifiers: Hypertension type: unspecified secondary hypertension Qualified Code(s): I15.9 - Secondary hypertension, unspecified (7) Diabetes mellitus, type II: Historically difficult to control, A1c in October was 12.7 Status: Chronic Qualifiers: Diabetes mellitus longterm insulin use: with longterm use Diabetes mellitus complication status: with kidney complications Diabetes mellitus complication detail: with chronic kidney disease Chronic kidney disease stage: stage 3 (moderate) Chronic kidney disease stage 3 subtype: stage 3b (GFR 30-44) Qualified Code(s): E11.21 - Type 2 diabetes mellitus with diabetic nephropathy; N18.32 - Chronic kidney disease, stage 3b; Z79.4 - retirement (current) use of insulin (8) CKD (chronic kidney disease): Stage IIIb, at baseline Status: Chronic Qualifiers: Chronic kidney disease stage: stage 3 (moderate) Chronic kidney disease stage 3 subtype: stage 3b (GFR 30-44) Qualified Code(s): N18.32 - Chronic kidney disease, stage 3b (9) Neurogenic bladder: History of previous suprapubic catheter, states she no longer requires in and out catheterization. I do wonder if she is not retaining as a contributor to her recurrent UTIs. Status: Chronic Additional A&P Information Continue Rocephin for urinary tract infection Monitor post void residuals for need to reinstitute intermittent self-catheterization versus replacement of suprapubic catheter Continue home Vesicare, may use home supply IV fluids Follow-up urine culture Continue usual medications for headache presently which include Tylenol and Flexeril, can add a alternatives if needed Monitor grief response closely for need to intervene. She is chronically on escitalopram Continue home amlodipine and metoprolol, pressures for need to intervene New home statin and fenofibrate therapy labs Plavix Sliding scale insulin, add long-acting insulin, monitor blood sugars Continue Topamax which she is on for history of seizures Provide appropriate wound care to bilateral wounds on buttocks Nystatin powder to groin Subcu heparin for DVT prophylaxis Case management to assist with disposition plans as she cannot go back to living at home due to the of her . She was able to find somebody to take care of her animals. Full code Attestations Medical Necessity Statement*: Disposition planning, no suitable caregivers at home, depenedent in ADLs, cannot safely retrun home to [facility] living Coding Level of Care Code Acute Investment Fund Manager for Chg Fwd Diagnoses UTI (urinary tract infection) N39.0 Urinary tract infection type: site unspecified Hematuria presence: without hematuria Headache G44.201 Headache type: tension-type Headache chronicity pattern: acute headache Intractability: intractable Feeling grief F43.21 Requires assistance with activities of daily living (ADL) Z74.1 Ulcer of sacral region, stage 1 L98.429 Hypertension I15.9 Hypertension type: unspecified secondary hypertension Diabetes mellitus, type II E11.21; N18.32; Z79.4 Diabetes mellitus intermediate frame tender insulin use: with longterm use Diabetes mellitus complication status: with kidney complications Diabetes mellitus complication detail: with chronic kidney disease Chronic kidney disease stage: stage 3 (moderate) Chronic kidney disease stage 3 subtype: stage 3b (GFR 30-44) CKD (chronic kidney disease) N18.32 Chronic kidney disease stage: stage 3 (moderate) Chronic kidney disease stage 3 subtype: stage 3b (GFR 30-44) Neurogenic bladder N31.9
[2020-12-21 12:00] VITALS: BP 137/79; PULSE 63; RESP 17; TEMP 37.2; O2SAT 95
[2020-12-21] MEDS: cyclobenzaprine 10 mg Tablet PO (15:02)
[2020-12-21] MEDS: topiramate 100 mg Tablet PO (15:03)
[2020-12-21] MEDS: fenofibrate 48 mg Tablet PO (15:03)
[2020-12-21] MEDS: atorvastatin 40 mg Tablet 20 MG PO (15:03)
[2020-12-21] MEDS: clopidogrel 75 mg Tablet PO (15:03)
[2020-12-21] MEDS: metoprolol succinate ER (24 HR) 100 mg Tablet 200 MG PO (15:03)
[2020-12-21] MEDS: escitalopram 10 mg Tablet 20 MG PO (15:03)
[2020-12-21] MEDS: amlodipine 10 mg Tablet PO (15:03)
[2020-12-21 16:00] VITALS: BP 137/74; PULSE 66; RESP 17; TEMP 36.9; O2SAT 94
[2020-12-21 17:53] LABS: Glucose Point of Care 111 mg/dL (70-110)
[2020-12-21 20:00] VITALS: BP 129/66; PULSE 67; RESP 14; TEMP 37; O2SAT 93
[2020-12-21 21:35] LABS: Glucose Point of Care 211 mg/dL (70-110)
[2020-12-21] MEDS: insulin glargine 100 units/1 mL 5 UNIT SUBCUT (22:20)
[2020-12-21] MEDS: cefTRIAXone 1,000 MG in sodium chloride 0.9% (plus) 50 ML 100 MG IV (23:21)
[2020-12-21] MEDS: heparin 5,000 unit/mL INJ 1 mL 5000 UNIT SUBCUT (23:22)
[2020-12-22] VITALS: BP 164/79; PULSE 58; RESP 16; TEMP 37; O2SAT 95
[2020-12-22 04:00] VITALS: BP 146/71; PULSE 58; RESP 16; TEMP 36.1; O2SAT 91
[2020-12-22 06:49] LABS: Glucose Point of Care 148 mg/dL (70-110)
[2020-12-22 08:00] VITALS: BP 146/75; PULSE 63; RESP 18; TEMP 36.8; O2SAT 92
--- NOTE | 2020-12-22 09:14 | PC.SOCIAL ---
IMM Update Pg.2 of [facility] Updated and reviewed with patient who verbalized understanding, copy provided.
--- NOTE | 2020-12-22 11:09 | P.DS_ITS ---
Discharge Providers Date of Admission: 12/17/20 22:34 Date of Discharge: December 22, 2020 Attending Provider at Admission: Andie Ac MD Attending Provider at Discharge: Jose Angel Gómez MD Diagnoses at Discharge Discharge Diagnosis (1) UTI (urinary tract infection): Status: Resolved Qualifiers: Hematuria presence: without hematuria Urinary tract infection type: site unspecified Qualified Code(s): N39.0 - Urinary tract infection, site not specified (2) Headache: Status: Chronic Qualifiers: Headache chronicity pattern: acute headache Headache type: tension-type Intractability: intractable Qualified Code(s): G44.201 - Tension-type headache, unspecified, intractable (3) Feeling grief: Status: Resolved (4) Requires assistance with activities of daily living (ADL): Status: Acute (5) Ulcer of sacral region, stage 1: Status: Acute Permanent problem details: x 2, one on each buttock (6) Hypertension: Status: Chronic Permanent problem details: hypertensive emergency 10/2020 Qualifiers: Hypertension type: unspecified secondary hypertension Qualified Code(s): I15.9 - Secondary hypertension, unspecified (7) Diabetes mellitus, type II: Status: Chronic Permanent problem details: a1c 10/2020 12.7 Qualifiers: Chronic kidney disease stage: stage 3 (moderate) Chronic kidney disease stage 3 subtype: stage 3b (GFR 30-44) Diabetes mellitus complication detail: with chronic kidney disease Diabetes mellitus complication status: with kidney complications Diabetes mellitus ad terminal makeup operator insulin use: with fpc use Qualified Code(s): E11.21 - Type 2 diabetes mellitus with diabetic nephropathy; N18.32 - Chronic kidney disease, stage 3b; Z79.4 - nursing home (current) use of insulin (8) CKD (chronic kidney disease): Status: Chronic Qualifiers: Chronic kidney disease stage: stage 3 (moderate) Chronic kidney disease stage 3 subtype: stage 3b (GFR 30-44) Qualified Code(s): N18.32 - Chronic kidney disease, stage 3b (9) Neurogenic bladder: Status: Chronic Permanent problem details: previous suprapubic catheter, history of intermittent self catheterization. 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 She was primarily admitted for the management of UTI, urine culture grew E. coli, she was on ceftriaxone, and is being discharged on Augmentin to complete the antibiotic course. She was also managed for the grief secondary to loss of her .At the time of discharge her grief has improved.She is at her baseline of mental. She is chronically on escitalopram. For hypertension she was continued on her home medication amlodipine and metoprolol.Continue Topamax which she is on for history of seizures. Continue usual medications for headache presently which include Tylenol. For neurogenic bladder she has a history of previous suprapubic catheter followed by intermittent self-catheterization, this time she was discharged with an indwelling Root. Appropriate wound care was done for her bilateral wound on buttocks. For diabetes she was continued on long-acting insulin as well as sliding scale insulin. Patient responded well to the current medical management and is being discharged in stable condition. Since she require assistance for ADL, and hence she needed to be placed.[facility] accepted the patient, and she was discharged to the senior care. Physical Exam Narrative: EXAM NARRATIVE: Alert , Awake , Oriented. HENMT: COMMON NORMALS: normocephalic and atraumatic HEAD & SCALP: normocephalic and atraumatic Resp: COMMON NORMALS: clear to auscultation bilaterally EFFORT & INSPECTION: Yes symmetric chest movement AUSCULTATION: clear to auscultation bilaterally Cardio: COMMON NORMALS: regular rate, regular rhythm, S1 normal heart sound present, S2 normal heart sound present, No gallops present (Cardio), No murmurs present (Cardio), No rub (Cardio) and Peripheral pulses 2+ throughout RATE: regular rate RHYTHM: regular rhythm HEART SOUNDS: S1 normal heart sound present and S2 normal heart sound present PERIPHERAL PULSES: Peripheral pulses 2+ throughout GI: COMMON NORMALS: Normal to inspection, nondistended, normoactive bowel sounds present, Soft to palpation, non-tender, No hepatosplenomegaly present and no masses AUSCULTATION: Yes normoactive bowel sounds PALPATION: Yes Soft to palpation and Yes No hepatosplenomegaly present RECTAL EXAM: deferred Extremity: COMMON NORMALS: no clubbing, cyanosis or edema and no pedal edema Neuro: OTHER: Left-sided facial nerve palsy, bilateral lower extremity power 2 out of 5, gross upper extremities however right upper extremity is weaker than the left Urinary Catheter Management^: Root: Cath Placed During This Visit: no Reason for Continuing Indwelling Catheter: Other Discharge Data Data Completed and Pending: Completed Studies During Hospitalization Category Date Time Status CT head wo con* 7 0450 Stat Cat Scan 12/17/20 19:39 Completed XR chest 1V yoandy ble [id number] Urgent Exams 12/17/20 19:09 Completed Labs from last 24 hours 12/22/20 12/21/20 12/21/20 06:35 21:20 17:21 POC Glucose 148 H 211 H 111 H 12/21/20 11:01 POC Glucose 305 H Vitals: Last Vital Signs Temp 98.2 F 12/22/20 08:00 Pulse 63 12/22/20 08:00 Resp 18 12/22/20 08:00 BP 146/75 12/22/20 08:00 Pulse Ox 92 12/22/20 08:00 Discharge Plan Discharge Patient Disposition: Xfer [facility] Not MCR Cert Condition: Stable Prescriptions: New Augmentin 500-125 mg tablet 1 tab PO BID Qty: 10 RF: 0 Continued amlodipine [Norvasc] 10 mg tablet 10 mg PO DAILY@1400 RF: 0 clopidogrel [Plavix] 75 mg tablet 75 mg PO DAILY@1400 RF: 0 escitalopram oxalate 20 mg tablet 20 mg PO DAILY@1400 RF: 0 pravastatin 20 mg tablet 80 mg PO DAILY@1400 RF: 0 solifenacin [Vesicare] 5 mg tablet 5 mg PO DAILY@1400 RF: 0 fenofibrate nanocrystallized [Tricor] 48 mg tablet 48 mg PO DAILY@1400 RF: 0 topiramate [Topamax] 100 mg tablet 100 mg PO DAILY@1400 RF: 0 cyclobenzaprine 10 mg tablet 10 mg PO TID PRN (Reason: muscle spasms) RF: 0 insulin lispro [Humalog KwikPen Insulin] 100 unit/mL insulin pen See Rx Instructions .ROUTE .COMPLEX Qty: 15 RF: 0 (DME) blood-glucose meter [Accu-Chek Gaby Plus Meter] Misc See Rx Instructions .ROUTE .MEDSUPPLY Qty: 1 RF: 0 (DME) Accu-Chek Gaby Plus test strp Strip See Rx Instructions .ROUTE .MEDSUPPLY Qty: 10 RF: 0 (DME) lancets [Accu-Chek Multiclix Lancet] Misc See Rx Instructions .ROUTE .MEDSUPPLY Qty: 100 RF: 0 metoprolol succinate 200 mg tablet extended release 24 hr 200 mg PO DAILY@14 RF: 0 ondansetron HCl [Zofran] 4 mg tablet 4 mg PO Q6H PRN (Reason: nausea and vomiting) Qty: 20 RF: 0 Discharge Orders: Discharge Order (Routine); Ordered 12/22/20 Ordered By: Jose Angel Gómez Discharge Diet: Soft Mechanical Discharge Activity: Increase activity as tolerated Discharge Attestations Time Spent in Discharge Care*: less than 30 min Specific Discharge Activities: educating patient, educating and/or supporting family/caregiver, discussing with pcp/other providers, discussing with family independence case manager/social workers/dc planners, documenting/other paperwork and evaluating patient/reviewing data Status at Discharge: Cognitive status at discharge: cognitively intact , Behavioral status at discharge: cooperative , Functional status at discharge: other assisted ambulation Overall status at discharge: patient is back to [facility] Quality [employer] Clinical Quality Measures During this hospital stay, did patient experience: None Coding Level of Care Code Acute Patient Services Assistant for Chg Fwd Exam Detailed Diagnoses UTI (urinary tract infection) N39.0 Hematuria presence: without hematuria Urinary tract infection type: site unspecified Headache G44.201 Headache chronicity pattern: acute headache Headache type: tension-type Intractability: intractable Feeling grief F43.21 Requires assistance with activities of daily living (ADL) Z74.1 Ulcer of sacral region, stage 1 L98.429 Hypertension I15.9 Hypertension type: unspecified secondary hypertension Diabetes mellitus, type II E11.21; N18.32; Z79.4 Chronic kidney disease stage: stage 3 (moderate) Chronic kidney disease stage 3 subtype: stage 3b (GFR 30-44) Diabetes mellitus complication detail: with chronic kidney disease Diabetes mellitus complication status: with kidney complications Diabetes mellitus fpc insulin use: with fpc use CKD (chronic kidney disease) N18.32 Chronic kidney disease stage: stage 3 (moderate) Chronic kidney disease stage 3 subtype: stage 3b (GFR 30-44) Neurogenic bladder N31.9
[2020-12-22 11:23] LABS: Glucose Point of Care 213 mg/dL (70-110)
[2020-12-22 11:48] VITALS: BP 143/75; PULSE 56; RESP 18; TEMP 37.1; O2SAT 93
[2020-12-22 14:30] LABS: SARS Covid-2 Antigen Negative (Negative)
[2020-12-22 15:18] VITALS: BP 143/75; PULSE 56; RESP 18; TEMP 37.1; O2SAT 93
--- NOTE | 2020-12-22 15:19 | PC.NURSE ---
Patient was transferred onto [facility] with the help of transport services. Patient's left AC IV discontinued. Patient's carreon remained intact and draining at time of discharge. Report called to Lina CID at [facility] and patient's belongings, two phones, one tablet, a tablet holding pillow and multiple chargers as well as home medications were sent with the patient. Patient left the facility stable via transport services at 1515.
== END 2020-12-22 15:15 | disposition skilled nursing facility (03) | DRG 690 ==
LOC: ER 22:47 → MEDSURG 23:14
PROVIDERS: Student in an Organized Health Care Education/Training Program; Admitting Provider Hospitalist; Emergency Provider Family Medicine; Visit Provider Internal Medicine
DX: N39.0 Urinary tract infection, site not specified (principal); I69.954 Hemiplegia and hemiparesis following unspecified cerebrovascular disease affecting left non-dominant side; Z91.14 Patient's other noncompliance with medication regimen; L89.321 Pressure ulcer of left buttock, stage 1; L89.311 Pressure ulcer of right buttock, stage 1; L89.322 Pressure ulcer of left buttock, stage 2; L89.312 Pressure ulcer of right buttock, stage 2; N31.9 Neuromuscular dysfunction of bladder, unspecified; E11.22 Type 2 diabetes mellitus with diabetic chronic kidney disease; I12.9 Hypertensive chronic kidney disease with stage 1 through stage 4 chronic kidney disease, or unspecified chronic kidney disease; N18.32 Chronic kidney disease, stage 3b; I15.9 Secondary hypertension, unspecified; F32.9 Major depressive disorder, single episode, unspecified; E78.5 Hyperlipidemia, unspecified; H35.30 Unspecified macular degeneration; E66.01 Morbid (severe) obesity due to excess calories; Z68.28 Body mass index [BMI] 28.0-28.9, adult; Z87.440 Personal history of urinary (tract) infections; F17.210 Nicotine dependence, cigarettes, uncomplicated; G44.201 Tension-type headache, unspecified, intractable; F43.21 Adjustment disorder with depressed mood; E11.21 Type 2 diabetes mellitus with diabetic nephropathy; Z74.1 Need for assistance with personal care; B96.20 Unspecified Escherichia coli [E. coli] as the cause of diseases classified elsewhere; Z79.4 Long term (current) use of insulin; Z79.02 Long term (current) use of antithrombotics/antiplatelets
CPT/HCPCS: 36415; 36416; 70450; 71045; 80053; 81001; 82962; 83880; 84484; 85025; 87077; 87086; 87186; 87426; 92507; 92523; 92526; 92610; 93005; 96365; 96372; 97110; 97161; 97530; 99285; J0696; J1644; J1815 ×2; J7030

== ENCOUNTER 2021-06-20 11:34 | Outpatient (CLI) | payer MEDICARE, MEDICAID, SELFPAY ==
--- NOTE | 2021-06-20 11:49 | CT_ITS ---
WS: [id number] CT ABDOMEN AND PELVIS NONCONTRAST HISTORY: NEUROGENIC BLADDER TECHNIQUE: Imaging performed through the abdomen and pelvis. Coronal and sagittal reformats are submi tted. All CT scans at [facility] use at least one of these dose optimization techniques: automated exposure control; mA and/or kV adjustment per patient size (includes targeted exams where d ose is matched to clinical indication); or iterative reconstruction. DLP: 2738.48 mGy.cm COMPARISON: None available. Lower thorax: Mild dependent changes at the lung bases. Moderate to severe calcification noted within the coronary arteries. There is an intra-atrial septal lipoma. Liver: Normal size liver. No mass or bile duct dilatation. Gallbladder: Prior cholecystectomy. Pancreas: Normal size and attenuation. Normal pancreatic duct. No pancreatitis or mass. Spleen: Normal. Adrenal glands: Normal. No mass. Right kidney: Moderate perinephric stranding. Increased fat within the renal sinus. There are numerou s small calcifications scattered throughout the renal pelvis. Majority of these calcifications are pr obably vascular. No obstruction. There are a few exophytic nodules which are poorly defined and canno t be characterized further. Left kidney: Mild perinephric stranding. Calcifications are predominantly vascular throughout the karri al pelvis. Exophytic nodule from the kidney with the largest measuring 18 mm and cannot be further ch aracterized. Aorta: Extensive atherosclerosis of the aorta and renal arteries. Numerous small retroperitoneal lymph nodes. These are very small lymph nodes although the number is i ncreased. No free air or free fluid. GI tract: The appendix is not definite identified. There are numerous diverticula throughout the colo n with no acute diverticulitis. Abdominal wall: Abdominal wall hernia contains fat only. Pelvis: Small atrophic uterus is midline. Prior Root catheter insertion. No pelvic masses or free fl uid. Osseous structures: Curvature scoliosis of the lumbar spine. CT/CT kidney stone 85400 IMPRESSION: 1. No renal obstruction. 2. Indeterminate bilateral renal masses. Cannot further characterize on this u nenhanced study. Ultrasound may be helpful for further evaluation. 3. Calcifications within each renal pelvis are predominantly vascular calcific ations. No ureteral calcifications. 4. Sensitive atherosclerosis coronary arteries and abdominal aorta and renal a rteries. More than expected for the patient's age. 5. Diverticulosis without acute diverticulitis. 6. Prior cholecystectomy.
== END 2021-06-20 11:35 | disposition home or self-care (01) ==
LOC: RAD 11:41
PROVIDERS: PCP Family Medicine; Visit Provider Urology
DX: N31.9 Neuromuscular dysfunction of bladder, unspecified (principal); Z90.49 Acquired absence of other specified parts of digestive tract; K57.90 Diverticulosis of intestine, part unspecified, without perforation or abscess without bleeding; I25.10 Atherosclerotic heart disease of native coronary artery without angina pectoris; N20.0 Calculus of kidney; N28.89 Other specified disorders of kidney and ureter
CPT/HCPCS: 74176

== ENCOUNTER 2021-06-29 13:26 | Day surgery (SDC) | payer MEDICARE, MEDICAID, SELFPAY ==
[2021-06-28 13:48] VITALS: BMI 32.3
[2021-06-29] VITALS (9 sets, daily range): BP systolic 125–159; BP diastolic 71–90; PULSE 65–76; RESP 11–18; TEMP 36.4–36.6; O2SAT 94–99
[2021-06-29 14:23] LABS: Basophils # 0.1 10^3/uL (0.0-0.1); Basophils % 0.6 %; Eosinophils # 0.1 10^3/uL (0.0-0.8); Eosinophils % 1.5 %; Hematocrit 39.7 % (37.0-47.0); Hemoglobin 12.5 g/dL (11.5-15.3); Lymphocytes # 2.2 10^3/uL (0.8-4.8); Lymphocytes % 26.2 %; Mean Corpuscular HGB Conc 31.5 g/dL (30.0-36.0); Mean Corpuscular Hemoglobin 28.5 pg (28.0-34.0); Mean Corpuscular Volume 90.6 fl (81-99); Mean Platelet Volume 9.3 fL (7.4-10.4); Monocytes # 0.6 10^3/uL (0.2-0.9); Monocytes % 6.9 %; Neutrophils # 5.37 10^3/uL (1.8-7.7); Neutrophils % 64.1 %; Nucleated Red Blood Cells % 0 %; Platelet Count 326 10^3/cmm (130-400); Red Blood Count 4.38 10^6/uL (4.1-5.3); Red Cell Distribution Width 13.1 % (12.1-15.1); White Blood Count 8.4 10^3/uL (4.0-10.0)
[2021-06-29 14:26] LABS: Glucose Point of Care 80 mg/dL (70-110)
--- NOTE | 2021-06-29 14:49 | ECG_ITS ---
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: : 1965 Requested By: Osorio Gama Order Number: [id number] Anton MD: RICHARD HUFFMAN Measurements Intervals [place] Rate: 63 P: 31 AR: 197 QRS: -25 QRSD: 106 T: 17 QT: 442 QTc: 453 Interpretive Statements SINUS RHYTHM LOW QRS VOLTAGE IN PRECORDIAL LEADS [QRS DEFLECTION < 1.0 mV IN CHEST LEADS] MODERATE VOLTAGE CRITERIA FOR LVH, CONSIDER NORMAL VARIANT [MEETS CRITERIA IN ONE OF: R(aVL), S(V1), R(V5), R(V5/V6)+S(V1)] POSSIBLE ANTERIOR MYOCARDIAL INFARCTION , OF INDETERMINATE AGE [30 ms Q WAVE IN V3/V4, OR R < 0.2 mV IN V4] Compared to ECG 12/17/2020 19:30:46 Low QRS voltage now present Myocardial infarct finding still present Electronically Signed On 06-29-2021 22:21:05 CDT by RICHARD HUFFMAN [email or web address]
[2021-06-29 14:57] LABS: Alanine Aminotransferase 7 U/L (0-33); Albumin Level 3.7 g/dL (3.5-5.2); Alkaline Phosphatase 42 IU/L (35-105); Anion Gap 15.2 (5-19); Aspartate Amino Transferase 12 U/L (0-32); Blood Urea Nitrogen 20 mg/dL (6-20); Calcium 8.3 mg/dL (8.5-10.5); Carbon Dioxide 22 mmol/L (22-29); Chloride 107 mmol/L (98-107); Globulin 3.5 g/dL (1.3-4.6); Glucose 72 mg/dL (65-115); Osmolality Calculated 291 mOsm/kg (285-295); Potassium 4.2 mmol/L (3.5-5.1); Sodium 140 mmol/L (136-145); Total Bilirubin 0.2 mg/dL (0.15-1.2); Total Protein 7.2 g/dL (6.6-8.7)
[2021-06-29] MEDS: sodium chloride 0.9% 1,000 ML 30 ML IV (15:01)
--- NOTE | 2021-06-29 15:23 | P.HPUD_ITS ---
Surgery/Procedure H&P Update DATE OF PROCEDURE: June 29, 2021 DATE H&P PERFORMED: 06/20/21 H&P UPDATE INFORMATION: I have reviewed H&P completed within last 30 days, I have examined patient prior to procedure, No changes to prior documentation and H&P is in [facility] EMR on date indicated PREOP DIAGNOSIS: Chronic neurogenic bladder with indwelling Root PLANNED PROCEDURE: Operation Date: 06/29/21 15:00 Proposed Procedures p Cystoscopy 21222 [id number] N31.9(Not Applicable) - Osorio Gama MD s Percutaneous Suprapubic Catheter Placement poss open(Not Applicable) - Osorio Gama MD
--- NOTE | 2021-06-29 16:05 | ANES.PREANE2 ---
Pre-Anesthetic Assessment Pre-Anesthetic Assessment: Height/Weight: Height 1.78 m Weight 102.058 kg Temp Pulse Resp BP Pulse Ox 97.5 F L 65 18 159/80 98 06/29/21 14:05 06/29/21 14:05 06/29/21 14:05 06/29/21 14:05 06/29/21 14:05 Preop Diagnosis: Chronic neurogenic bladder with indwelling Root Proposed Procedure: Operation Date: 06/29/21 15:00 Proposed Procedures p Cystoscopy 13052 55117 N31.9(Not Applicable) - Osorio Gama MD s Percutaneous Suprapubic Catheter Placement poss open(Not Applicable) - Osorio Gama MD Was Beta Henry taken within 24 hours: Yes Was Clonidine taken within 24 hours: N/A Last intake: Intake Last Liquid Date 06/29/21 Last Liquid Time 09:00 Last Solid Date 06/27/21 Social: Social History: No alcohol and No tobacco Exam: Pre-Anes Outpt Exam: alert, oriented x 3, clear to auscultation bilaterally and regular rate & rhythm Airway: Submandibular: WNL Cervical ROM: WNL MP: 2 Additional comments: Poor dentition CV/HEM: CV/HEM: HTN : : Chronic renal Insufficiency Comments: neurogenic bladder Metabolic: Metabolic: DM, Hyperlipidemia and Morbid obesity Neuropsych: Neuropsych: CVA, Deficit (left side) and Seizure Anesthetic Plan: ASA status: 3 Anesthesia: General Risk of > 500 ml blood loss (7ml/kg in children): No Meds/Allergies Current Medications: Current Medications Generic Name Dose Route Start Last Admin Trade Name Freq PRN Reason Stop Dose Admin Sodium Chloride 1,000 mls @ 30 ml s/hr 06/29/21 13:45 06/29/21 15:01 Sodium Chloride 0.9% IV 06/30/21 13:44 30 mls/hr .Q24H ED Administration PFSH Anesthesia PFSH: Medical History CKD (chronic kidney disease) CVA (cerebral vascular accident) left hemiparesis Depression Diabetes mellitus, type II a1c 10/2020 12.7 Dyslipidemia Feeling grief Headache History of seizure on topamax Hypertension hypertensive emergency 10/2020 Macular degeneration Neurogenic bladder previous suprapubic catheter, history of intermittent self catheterization. Obesity Recurrent UTI Requires assistance with activities of daily living (ADL) Ulcer of sacral region, stage 1 x 2, one on each buttock UTI (urinary tract infection) Surgical History H/O detached retina repair H/O oral surgery History of suprapubic catheter came out in 2019, not replaced S/P appendectomy S/P cataract surgery S/P cholecystectomy S/P knee surgery S/P shoulder surgery Family History Father Cancer Lymphoma Mother CAD (coronary artery disease) Diabetes Chronic kidney disease (CKD) Social History Alcohol intake: never Caregiver/support person: No Lives independently: No Marital status: Marital status details: 12/17/20 Current occupational status: disabled Data Anesthesia CBC & Chem 7: 06/29/21 14:12 06/29/21 14:12 Other Labs: Laboratory Results - last 48 hr 06/29/21 06/29/21 06/29/21 14:11 14:12 14:12 WBC 8.4 RBC 4.38 Hgb 12.5 Hct 39.7 MCV 90.6 MCH 28.5 MCHC 31.5 RDW 13.1 Plt Count 326 MPV 9.3 Neut % (Auto) 64.1 Lymph % (Auto) 26.2 Holmes % (Auto) 6.9 Eos % (Auto) 1.5 Baso % (Auto) 0.6 Neut # (Auto) 5.37 Lymph # (Auto) 2.2 Holmes # (Auto) 0.6 Eos # (Auto) 0.1 Baso # (Auto) 0.1 Nucleated RBC % (auto) 0 Nucleated RBCs # 0.0 Sodium 140 Potassium 4.2 Chloride 107 Carbon Dioxide 22 Anion Gap 15.2 BUN 20 Creatinine 1.7 H GFR Calculation 31.0 L Glucose 72 POC Glucose 80 Calculated Osmolality 291 Calcium 8.3 L Total Bilirubin 0.2 AST 12 ALT 7 Alkaline Phosphatase 42 Total Protein 7.2 Albumin 3.7 Globulin 3.5 Cardiac Studies: No Data to Display
[2021-06-29] MEDS: neomycin-poly-bacitracin oint 28 gm 1 APPLIC TOPICAL (16:15)
--- NOTE | 2021-06-29 16:25 | P.OP_ITS ---
Operative Report Date of procedure: June 29, 2021 Pre-op Diagnosis: Chronic neurogenic bladder with indwelling Root Post-op diagnosis: same Procedure Done: 1. Cystoscopy 2. Percutaneous suprapubic tube placement Implants: 16 Tristanian Root catheter suprapubic tube Pathology: none sent Anesthesia: General Estimated blood loss: Gama <10 cc Urine output: Not measured Complications: None Findings: Placed without difficulty. Entry point into the bladder at the dome. Good catheter function. Condition: stable Disposition: PACU Brief History: Erika is a very pleasant unfortunate 56-year-old white female status post CVA with neurogenic bladder previously maintained with suprapubic tube and later Root catheter apparently after the suprapubic tube became dislodged. She was complaining of a lot of discomfort and leakage around the catheter in the urethra and requested conversion back to suprapubic tube. She had had some lower abdominal incisions and for that reason a CT scan was performed which demonstrated no bowel near the bladder pathway from the suprapubic site. The bladder was actually somewhat tacked onto the abdominal wall from its previous suprapubic location. Admitted now for suprapubic tube placement percutaneously versus open Procedure: After routine preoperative evaluation examination and obtaining of informed consent she was taken to the operating suite on 06/29/2021 where general anesthesia was administered without difficulty after appropriate timeout was performed, SCDs confirmed to be functioning, preoperative antibiotics administered, beta-lázaro protocol confirmed. Prepped and draped in usual sterile fashion in dorsolithotomy position paying careful attention to avoiding pressure points. 21 Tristanian cystoscope with 30 degree lens was introduced into urethra meatus and advanced to the bladder to videoscopy. The urethra appeared to be somewhat patulous. The bladder showed no significant lesions other than just chronic catheter inflammatory changes. The dome of the bladder appeared to be fixed to the abdominal wall as expected based on the CT scan results. The previous site of the suprapubic tube was clearly identifiable. With the bladder full and light pressure on the abdominal wall a couple fingerbreadths above the symphysis pubis impression onto the bladder was easily identified. A 25-gauge spinal needle was used to localize the dome of the bladder in the expected position without difficulty. A puncture incision was made with a 15 blade and hemostats were used to dissect down to the fascia. A [facility] suprapubic percutaneous sheath and trocar with a 20 Tristanian internal diameter of the sheath was utilized. It was passed under cystoscopic guidance in the previously localized area through the old insertion site directly into the bladder without difficulty. The trocar was withdrawn slightly and the sheath was further advanced into the bladder. The trocar was removed a 16 Tristanian catheter was then advanced without difficulty through the sheath into the bladder and the balloon was inflated. The sheath was then peeled away. Cystoscopy confirmed the balloon was still inflated and appropriate position. It was brought loosely to the bladder wall. The catheter was then secured with 0 nylon sutures x2. Function was confirmed antibiotic ointment applied to the tube site and sterile dressings applied. The catheter was further secured with a StatLock to the lower abdominal wall. She tolerated the procedure well without complications and was awakened in the operating room and returned to the recovery room in stable condition. Plans: 1. Anticipate out patient discharged today 2. Follow-up in about 5 weeks for first suprapubic tube change in my office. 18- 20 Tristanian will be attempted with advancement in size thereafter.
--- NOTE | 2021-06-29 16:59 | ANE.PACU2 ---
Inpatient post-anesthesia follow up: Airway intact: Yes Vital signs: Temperature 97.7 F Pulse Rate 72 Respiratory Rate 12 Blood Pressure 125/82 Pulse Oximetry 95 Oxygen Delivery Me thod Room Air Oxygen Flow Rate 8 Fraction of Inspir ed Oxygen Hydration adequate: Yes Nausea and vomiting: No Pain level: 1 Mental status: Baseline
[2021-06-29 17:40] LABS: Glucose Point of Care 119 mg/dL (70-110)
== END 2021-06-29 18:05 | disposition home or self-care (01) ==
PROVIDERS: PCP Family Medicine; Visit Provider Urology
PROC: 0TJB8ZZ Inspection of Bladder, Via Natural or Artificial Opening Endoscopic (ICD-10-PCS; CPT 52000; principal; 2021-06-29 14:55)
PROC: (CPT 51102; 2021-06-29 14:55)
DX: N31.9 Neuromuscular dysfunction of bladder, unspecified (principal); E78.5 Hyperlipidemia, unspecified; E66.01 Morbid (severe) obesity due to excess calories; Z68.32 Body mass index [BMI] 32.0-32.9, adult; Z86.73 Personal history of transient ischemic attack (TIA), and cerebral infarction without residual deficits; F32.9 Major depressive disorder, single episode, unspecified; E11.22 Type 2 diabetes mellitus with diabetic chronic kidney disease; I12.9 Hypertensive chronic kidney disease with stage 1 through stage 4 chronic kidney disease, or unspecified chronic kidney disease; N18.9 Chronic kidney disease, unspecified; E66.9 Obesity, unspecified; Z82.49 Family history of ischemic heart disease and other diseases of the circulatory system; Z83.3 Family history of diabetes mellitus
CPT/HCPCS: 51102; 36415; 36416; 80053; 82962; 85025; 93005; J0690; J3010; J7030

== ENCOUNTER 2021-09-12 13:04 | Outpatient (CLI) | payer MEDICARE, MEDICAID, SELFPAY ==
[2021-09-12 13:31] LABS: Basophils % 0.5 %; Eosinophils # 0.2 10^3/uL (0.0-0.8); Eosinophils % 1.8 %; Hematocrit 35.2 % (37.0-47.0); Hemoglobin 11.3 g/dL (11.5-15.3); Lymphocytes # 1.5 10^3/uL (0.8-4.8); Lymphocytes % 18.7 %; Mean Corpuscular HGB Conc 32.1 g/dL (30.0-36.0); Mean Corpuscular Hemoglobin 28.8 pg (28.0-34.0); Mean Corpuscular Volume 89.6 fl (81-99); Mean Platelet Volume 9.2 fL (7.4-10.4); Monocytes # 0.6 10^3/uL (0.2-0.9); Monocytes % 6.8 %; Neutrophils # 5.86 10^3/uL (1.8-7.7); Neutrophils % 71.5 %; Nucleated Red Blood Cells % 0 %; Platelet Count 320 10^3/cmm (130-400); Red Blood Count 3.93 10^6/uL (4.1-5.3); Red Cell Distribution Width 13.6 % (12.1-15.1); White Blood Count 8.2 10^3/uL (4.0-10.0)
[2021-09-12 13:58] LABS: Anion Gap 16.9 (5-19); Blood Urea Nitrogen 28 mg/dL (6-20); Calcium 8.8 mg/dL (8.5-10.5); Carbon Dioxide 22 mmol/L (22-29); Chloride 106 mmol/L (98-107); Glomerular Filtration Rate 20.8 mL/min (90-130); Glucose 99 mg/dL (65-115); Osmolality Calculated 298 mOsm/kg (285-295); Potassium 3.9 mmol/L (3.5-5.1); Sodium 141 mmol/L (136-145)
[2021-09-12 14:09] LABS: Urine Appearance Cloudy (CLEAR); Urine Color Yellow (Yellow)
[2021-09-12 14:10] LABS: Glucose Urine UA Norm (Normal); Ketones Urine Negative (Negative); Protein Urine 1+ (Negative); Specific Gravity, Urine 1.015 (1.005-1.030); pH Urine 8 (5-7)
[2021-09-12 14:11] LABS: Add Urine Microscopic? YES; Bilirubin Urine Neg (Negative); Blood Urine 3+ (Negative); Leukocyte Esterase Urine 2+ (Negative); Nitrate Urine Negative (Negative); RBC Urine 25-40 /hpf (0-2); Squamous Epithelial Cell Urine 0-4 /hpf (0-5); Urobilinogen Urine Norm (Negative); WBC Urine 25-40 /hpf (0-5)
[2021-09-12 14:12] LABS: Add Urine Culture? Yes; Bacteria Urine 2+ /hpf
== END 2021-09-12 13:05 | disposition home or self-care (01) ==
PROVIDERS: PCP Family Medicine; Visit Provider Nurse Practitioner Family
DX: I10 Essential (primary) hypertension (principal)
CPT/HCPCS: 80048; 81001; 85025; 87077; 87086; 87186

== ENCOUNTER 2021-09-13 10:50 | Emergency (ER) | payer MEDICARE, MEDICAID, SELFPAY ==
[2021-09-13 10:51] VITALS: BP 146/78; PULSE 70; RESP 18; TEMP 36.3; O2SAT 93; BMI 33.4
--- NOTE | 2021-09-13 11:06 | W.ED.NEUROSD ---
HPI - Neuro Symptoms/Deficit General: Chief Complaint: Neuro Symptoms/Deficit Stated Complaint: POSS CVA Time Seen by Provider: 09/13/21 10:59 History of Present Illness: HPI Narrative: Ms. Shen is a 56-year-old lady with history of CVA, hypertension, hyperlipidemia, diabetes who presents emergency department due to strokelike symptoms. At baseline she has a fair degree of debility from 3 prior strokes. She resides at residential. Her primary residual symptoms are right-sided weakness which apparently is improved from flaccid paralysis. She also has neurogenic bladder and a suprapubic catheter in place. Starting yesterday at some time she noticed increased difficulties with speech and an abnormal sensation within her mouth. She has not had this symptom with prior strokes. Overall the course has progressed and is moderate in intensity. She does note difficulty with swallowing food as well. She denies other specific infectious symptoms though is concerned due to increased tenderness about infection at the suprapubic catheter site. No other significant changes in health, exacerbating, or alleviating factors identified. Review of Systems General: Reports: 10 or more systems reviewed and unremarkable except in HPI and below PFSH ED PFSH: Medical History CKD (chronic kidney disease) CVA (cerebral vascular accident) left hemiparesis Depression Diabetes mellitus, type II a1c 10/2020 12.7 Dyslipidemia Feeling grief Headache History of seizure on topamax Hypertension hypertensive emergency 10/2020 Macular degeneration Neurogenic bladder previous suprapubic catheter, history of intermittent self catheterization. Obesity Recurrent UTI Requires assistance with activities of daily living (ADL) Ulcer of sacral region, stage 1 x 2, one on each buttock UTI (urinary tract infection) Surgical History H/O detached retina repair H/O oral surgery History of suprapubic catheter came out in 2019, not replaced S/P appendectomy S/P cataract surgery S/P cholecystectomy S/P knee surgery S/P shoulder surgery Family History Father Cancer Lymphoma Mother CAD (coronary artery disease) Diabetes Chronic kidney disease (CKD) Social History Alcohol intake: never Caregiver/support person: No Lives independently: No Marital status: Marital status details: 12/17/20 Current occupational status: disabled Physical Exam Narrative: EXAM NARRATIVE: GENERAL/CONSTITUTIONAL -chronically ill-appearing. No acute distress. Eyes - PERRL, no conjunctival injection ENMT - Atraumatic external nose and ears. Moist mucous membranes NECK - supple. trachea midline CARDIOVASCULAR - regular rate and rhythm. Peripheral pulses 2+ and equal RESPIRATORY -clear to auscultation bilaterally. No retractions or accessory muscle use. ABDOMEN/GI - Nontender/Nondistended. No tenderness to percussion or evidence of peritonitis MSK - Extremities without obvious deformity or tenderness to palpation SKIN - Warm, Dry NEURO - alert and oriented x3. Right-sided weakness upper and lower extremity. Dysarthric speech, normal elevation of palate and midline uvula, midline tongue protrusion without other cranial nerve deficit appreciated. Course ED course: - Patient was seen and evaluated by me at bedside - Patient placed on cardiac monitors, IV access obtained - Initial evaluation notable for exam as noted above, challenging given prior CVA with residual deficit. Dysarthric speech reportedly new. - Labs notable for no acute abnormality to explain patient's symptoms. Urinalysis with squamous epithelial contamination. - Imaging notable for no acute hemorrhage noted on head CT. Given patient's elevated creatinine will defer CTA at this time. MRI notable for acute stroke - Upon serial reexamination after treatment the patient was similar. - Based on patient history, evaluation, labs, and imaging as interpreted the most likely cause of the patient's condition is acute stroke. - I recommended admission which the patient adamantly declined. I explained risks and benefits of discharge including concern regarding possibility of aspiration given dysarthric speech and reported increased frequency of choking since onset of symptoms. The patient likely needs speech-language pathology evaluation. The patient is competent to make medical decisions based on my evaluation. I did discuss the case with the medical record clerk Dr. Neil of the patient's detention facility, he is okay with her going back with plan for therapy services and medication optimization if needed at detention facility. Patient is already on antiplatelet agent, and high-dose statin. - Return precautions, follow-up plan explained. Patient verbalized understanding and wishes to be discharged. - Patient discharged in satisfactory condition. Vital Signs: Vital signs: Vital Signs Temperature 98.5 F 09/13/21 17:33 Pulse Rate 74 09/13/21 17:33 Respiratory Rate 18 09/13/21 17:33 Blood Pressure 130/65 09/13/21 17:33 Pulse Oximetry 92 09/13/21 17:33 MDM - Neuro Symptoms/Deficit Medical Records: Attestation: I reviewed the patient's medical records. Lab Data: Attestation: I reviewed the patient's lab results. Labs: Lab Results 09/13/21 09/13/21 09/13/21 11:41 11:47 11:47 WBC 9.2 10^3/uL 10^3/ uL (4.0-10.0) RBC 4.22 10^6/uL 10^6 /uL (4.1-5.3) Hgb 11.8 g/dL g/dL (11.5-15.3) Hct 37.6 % % (37.0-47.0) MCV 89.1 fl fl (81-99) MCH 28.0 pg pg (28.0-34.0) MCHC 31.4 g/dL g/dL (30.0-36.0) RDW 13.4 % % (12.1-15.1) Plt Count 328 10^3/cmm 10^3 /cmm (130-400) MPV 9.5 fL fL (7.4-10.4) Neut % (Auto) 72.7 % % Lymph % (Auto) 17.5 % % [place] % (Auto) 7.8 % % Eos % (Auto) 1.1 % % Baso % (Auto) 0.4 % % Neut # (Auto) 6.67 10^3/uL 10^3 /uL (1.8-7.7) Lymph # (Auto) 1.6 10^3/uL 10^3/ uL (0.8-4.8) [place] # (Auto) 0.7 10^3/uL 10^3/ uL (0.2-0.9) Eos # (Auto) 0.1 10^3/uL 10^3/ uL (0.0-0.8) Baso # (Auto) 0.0 10^3/uL 10^3/ uL (0.0-0.1) Nucleated RBC % (a uto) 0 % % Nucleated RBCs # 0.0 /100WBC /100W BC Sodium 140 mmol/L mmol/L (136-145) Potassium 3.9 mmol/L mmol/L (3.5-5.1) Chloride 107 mmol/L mmol/L (98-107) Carbon Dioxide 19 mmol/L L mmol/ L (22-29) Anion Gap 17.9 (5-19) BUN 25 mg/dL H mg/dL (6-20) Creatinine 2.1 mg/dL H mg/dL (0.5-0.9) GFR Calculation 24.3 mL/min L mL/ min (90-130) Glucose 126 mg/dL H mg/dL (65-115) POC Glucose 134 mg/dL H mg/dL (70-110) Calculated Osmolal ity 296 mOsm/kg H mOs m/kg (285-295) Lactate Calcium 8.6 mg/dL mg/dL (8.5-10.5) Total Bilirubin 0.2 mg/dL mg/dL (0.15-1.2) AST 8 U/L U/L (0-32) ALT < 5 U/L U/L (0-33) Alkaline Phosphata se 43 IU/L IU/L (35-105) Total Protein 7.1 g/dL g/dL (6.6-8.7) Albumin 3.8 g/dL g/dL (3.5-5.2) Globulin 3.3 g/dL g/dL (1.3-4.6) Procalcitonin 0.20 ng/mL ng/mL (0-0.5) TSH 2.22 uIU/mL uIU/m L (0.27-4.20) Urine Color Urine Appearance Urine pH Ur Specific Gravit y Urine Protein Urine Glucose (UA) Urine Ketones Urine Blood Urine Nitrate Urine Bilirubin Prot Sulfosalicyli c Acd Urine Urobilinogen Ur Leukocyte Holly ase Urine RBC Urine WBC Ur Squamous Epith Cells Triple Phos Sandee ls Amorphous Sediment Urine Bacteria Urine Mucus 09/13/21 09/13/21 12:56 14:34 WBC RBC Hgb Hct MCV MCH MCHC RDW Plt Count MPV Neut % (Auto) Lymph % (Auto) [place] % (Auto) Eos % (Auto) Baso % (Auto) Neut # (Auto) Lymph # (Auto) [place] # (Auto) Eos # (Auto) Baso # (Auto) Nucleated RBC % (a uto) Nucleated RBCs # Sodium Potassium Chloride Carbon Dioxide Anion Gap BUN Creatinine GFR Calculation Glucose POC Glucose Calculated Osmolal ity Lactate 0.6 mmol/L mmol/L (0.5-2.2) Calcium Total Bilirubin AST ALT Alkaline Phosphata se Total Protein Albumin Globulin Procalcitonin TSH Urine Color Other (Yellow) Urine Appearance Cloudy (CLEAR) Urine pH 9 H (5-7) Ur Specific Gravit y 1.010 (1.005-1.030) Urine Protein 1+ H (Negative) Urine Glucose (UA) Norm (Normal) Urine Ketones 1+ H (Negative) Urine Blood 2+ H (Negative) Urine Nitrate Negative (Negative) Urine Bilirubin Neg (Negative) Prot Sulfosalicyli c Acd Positive (Negative) Urine Urobilinogen Norm mg/dL mg/dL (Negative) Ur Leukocyte Holly ase 2+ H (Negative) Urine RBC 0-4 /hpf H /hpf (0-2) Urine WBC 10-15 /hpf H /hpf (0-5) Ur Squamous Epith Cells 5-10 /hpf H /hpf (0-5) Triple Phos Sandee ls 15-25 /hpf H /hpf Amorphous Sediment 2+ /hpf /hpf Urine Bacteria 1+ /hpf H /hpf (NONE) Urine Mucus 1+ /hpf /hpf Discharge Plan Discharge Patient Disposition: [facility] Clinical Impression: Acute ischemic stroke Condition: Stable Discharge Orders: Discharge ED (Routine); Ordered 09/13/21 Ordered By: Rocky Gan Referrals: Vu Neil Jr, MD [Primary Care Provider] - Discharge Diet: Usual diet Discharge Activity: Resume usual activity Patient Instructions: Ischemic Stroke (DC) Activity Restrictions/Additional Instructions: Thank you for visiting the emergency department. You were seen and evaluated for difficulty speaking. You were found to have a stroke, given that symptoms may have started yesterday you are not a candidate for TPA or clot busting medications. I recommended admission for further evaluation including speech therapy and medication optimization which are declined at this time. After discussion with the medical record clerk from your facility this is reasonable. You do still require medication optimization and speech therapy. Please return to the emergency department for worsening symptoms, headache, new neurologic deficits, or anything else that you are concerned about and feel needs emergency department evaluation. Coding Level of Care Code ED Crayon Molding Machine Operator for Ish Sawyer
--- NOTE | 2021-09-13 11:07 | CT_ITS ---
WS: [id number] CT HEAD NONCONTRAST HISTORY: stroke like symptoms TECHNIQUE: Contiguous axial imaging performed through the brain in 2.5 mm imaging. Bone and soft tiss ue windows. Sagittal and coronal reformats reviewed. All CT scans at [facility] use at least one of these dose optimization techniques: automated exposure control; mA and/or kV adjustment per pa tient size (includes targeted exams where dose is matched to clinical indication); or iterative recon struction. DLP: 1964.0 mGy.cm COMPARISON: 12/17/2020 No acute intracranial hemorrhage, midline shift or mass effect. No significant atrophy. Mild chronic ischemic changes in the periventricular white matter. There are small lacunar infarcts bilateral basal ganglia and extending into the RIGHT caudate head. A few more ischemic changes and infarcts on the RIGHT as compared to the LEFT. No new infarct. Ventricles: Normal size with no hydrocephalus. Cavum septum pellucidum and cavum vergae, normal vari ant. No inferior displacement of the cerebellar tonsils. Paranasal sinuses: As visualized are clear. Mastoid air cells: Well pneumatized. Calvarium and scalp: Skull is intact with no soft tissue edema or swelling. CT/CT head wo con* [id number] IMPRESSION: 1. No acute intracranial hemorrhage or edema. 2. Chronic microvascular ischemic disease and bilateral basal ganglia lacunar infarcts are stable.
--- NOTE | 2021-09-13 11:25 | XR_ITS ---
WS: [id number] Portable AP upright chest, 09/13/2021 Clinical Data: stroke like symptoms Comparison: Portable chest, 12/17/2020. Findings: No nodules, masses or effusions are seen. The heart is normal. The pulmonary vascularity is not increased. No pneumonia or pneumothorax is seen. There are 3 orthopedic anchors in the right hum eral head and at least 2 anchors in the right glenoid rim. XR/XR chest 1V portable [id number] Impression: Negative chest.
[2021-09-13 11:41] VITALS: BP 165/93; PULSE 69; RESP 16; O2SAT 94
[2021-09-13 11:44] LABS: Glucose Point of Care 134 mg/dL (70-110)
[2021-09-13 12:00] LABS: Basophils % 0.4 %; Eosinophils # 0.1 10^3/uL (0.0-0.8); Eosinophils % 1.1 %; Hematocrit 37.6 % (37.0-47.0); Hemoglobin 11.8 g/dL (11.5-15.3); Lymphocytes # 1.6 10^3/uL (0.8-4.8); Lymphocytes % 17.5 %; Mean Corpuscular HGB Conc 31.4 g/dL (30.0-36.0); Mean Corpuscular Volume 89.1 fl (81-99); Mean Platelet Volume 9.5 fL (7.4-10.4); Monocytes # 0.7 10^3/uL (0.2-0.9); Monocytes % 7.8 %; Neutrophils # 6.67 10^3/uL (1.8-7.7); Neutrophils % 72.7 %; Nucleated Red Blood Cells % 0 %; Platelet Count 328 10^3/cmm (130-400); Red Blood Count 4.22 10^6/uL (4.1-5.3); Red Cell Distribution Width 13.4 % (12.1-15.1); White Blood Count 9.2 10^3/uL (4.0-10.0)
[2021-09-13 12:11] VITALS: BP 125/88; PULSE 69; O2SAT 95
--- NOTE | 2021-09-13 12:20 | PC.NURSE ---
PATIENT ALSO HAS CHRONIC ROACH CATHETER PLACEMENT. URINE RETURN IS PALE YELLOW WITH NO ABNORMALITIES.
[2021-09-13 12:36] LABS: Thyroid Stimulating Hormone 2.22 uIU/mL (0.27-4.20)
[2021-09-13 12:48] LABS: Alanine Aminotransferase < 5 U/L (0-33); Albumin Level 3.8 g/dL (3.5-5.2); Alkaline Phosphatase 43 IU/L (35-105); Anion Gap 17.9 (5-19); Aspartate Amino Transferase 8 U/L (0-32); Blood Urea Nitrogen 25 mg/dL (6-20); Calcium 8.6 mg/dL (8.5-10.5); Carbon Dioxide 19 mmol/L (22-29); Chloride 107 mmol/L (98-107); Globulin 3.3 g/dL (1.3-4.6); Glomerular Filtration Rate 24.3 mL/min (90-130); Glucose 126 mg/dL (65-115); Osmolality Calculated 296 mOsm/kg (285-295); Potassium 3.9 mmol/L (3.5-5.1); Sodium 140 mmol/L (136-145); Total Bilirubin 0.2 mg/dL (0.15-1.2); Total Protein 7.1 g/dL (6.6-8.7)
[2021-09-13 13:20] LABS: Lactate (Lactic Acid level) 0.6 mmol/L (0.5-2.2)
--- NOTE | 2021-09-13 13:34 | MR_ITS ---
WS: [id number] MRI BRAIN WITHOUT CONTRAST HISTORY: dysarthria, dysphagia, prior strokes COMPARISON: None available. TECHNIQUE: Diffusion imaging, multiplanar T1, T2 and FLAIR imaging obtained. Acute diffusion-weighted lacunar infarct in the LEFT rita. No associated hemorrhage or mass effect. T here is additional mild bilateral chronic ischemic disease in the rita. No additional infarcts throug hout the brain. There are additional numerous T2 and FLAIR signal hyperintensities throughout the white matter. Near confluent distribution around the ventricles and scattered throughout the subcortical white matter an d also within the rita and cerebellum. Advanced ischemic disease as compared to age. Ventricles and extra-axial spaces are normal. No inferior displacement of cerebellar tonsils. The sella turcica and pituitary gland are unremarkabl e. Dural venous sinuses and douglas of [place] demonstrate no abnormality on this unenhanced studies. Paranasal sinuses: Clear. Mastoid air cells: Normal. Calvarium and scalp: Intact. MR/MR head wo con* [id number] IMPRESSION: 1. Acute LEFT pontine infarct, nonhemorrhagic. 2. There is advanced chronic microvascular ischemic disease throughout the sup ratentorial white matter and also within the rita bilaterally. More advanced th an expected for the patient's age.
[2021-09-13 14:15] VITALS: BP 153/78; PULSE 68; RESP 94; O2SAT 93
[2021-09-13 14:51] LABS: Urine Appearance Cloudy (CLEAR); Urine Color Other (Yellow)
[2021-09-13 14:52] LABS: pH Urine 9 (5-7)
[2021-09-13 14:53] LABS: Add Urine Microscopic? YES; Bilirubin Urine Neg (Negative); Blood Urine 2+ (Negative); Glucose Urine UA Norm (Normal); Ketones Urine 1+ (Negative); Leukocyte Esterase Urine 2+ (Negative); Nitrate Urine Negative (Negative); Protein Urine 1+ (Negative); RBC Urine 0-4 /hpf (0-2); Sulfosalicylic Acid Urine Positive (Negative); Urobilinogen Urine Norm (Negative)
[2021-09-13 14:55] LABS: Amorphous Sediment Urine 2+ /hpf; Bacteria Urine 1+ /hpf; Mucus Urine 1+ /hpf; Triple Phosphate Crystal Urine 15-25 /hpf
[2021-09-13 14:56] LABS: Add Urine Culture? Yes
[2021-09-13 16:25] VITALS: BP 154/92; PULSE 65; RESP 17; O2SAT 94
[2021-09-13 17:33] VITALS: BP 130/65; PULSE 74; RESP 18; TEMP 36.9; O2SAT 92
== END 2021-09-13 17:36 ==
PROVIDERS: Emergency Provider Emergency Medicine; PCP Family Medicine
DX: I63.9 Cerebral infarction, unspecified (principal); I69.354 Hemiplegia and hemiparesis following cerebral infarction affecting left non-dominant side; E11.9 Type 2 diabetes mellitus without complications; I10 Essential (primary) hypertension; E78.5 Hyperlipidemia, unspecified; R56.9 Unspecified convulsions; E66.9 Obesity, unspecified; Z68.33 Body mass index [BMI] 33.0-33.9, adult
CPT/HCPCS: 36415; 36416; 70450; 70551; 71045; 80053; 81001; 82962; 83605; 84145; 84443; 85025; 87077; 87086; 87186; 99285

== ENCOUNTER → 2021-09-21 07:53 | Outpatient (BNVA) | payer MEDICARE, MEDICAID, SELFPAY | PROVIDERS: PCP Family Medicine; Referring Provider Family Medicine; Visit Provider Specialist | DX: I69.322 Dysarthria following cerebral infarction (principal); I10 Essential (primary) hypertension; E11.65 Type 2 diabetes mellitus with hyperglycemia; Z79.4 Long term (current) use of insulin; G43.711 Chronic migraine without aura, intractable, with status migrainosus | CPT/HCPCS: 99205 ==

== ENCOUNTER 2021-12-11 12:57 | Outpatient (CLI) | payer MEDICARE, MEDICAID, SELFPAY ==
[2021-12-11 14:35] LABS: Blood Urea Nitrogen 22 mg/dL (6-20); Glomerular Filtration Rate 27.2 mL/min (90-130)
== END 2021-12-11 12:58 | disposition home or self-care (01) ==
PROVIDERS: PCP Family Medicine; Visit Provider Specialist
DX: I63.9 Cerebral infarction, unspecified (principal)
CPT/HCPCS: 82565; 84520

== ENCOUNTER 2021-12-29 15:53 | Inpatient (IN) | payer MEDICARE, MEDICAID, SELFPAY ==
[2021-12-29] VITALS (10 sets, daily range): BP systolic 127–141; BP diastolic 74–84; PULSE 73–83; RESP 7–22; TEMP 37.4; O2SAT 95–100; BMI 43.0
--- NOTE | 2021-12-29 15:56 | W.ED.GENADLT ---
HPI - General Adult General: Chief complaint: Weakness Stated complaint: INFECTED WOUND Time Seen by Provider: 12/29/21 15:53 Source: patient, EMS, RN notes reviewed and old records reviewed Mode of arrival: EMS Limitations: physical limitation (Previous stroke with dysarthria) History of Present Illness: 56-year-old female. Brought in from local detention by EMS. She is a history of previous strokes difficulty or much history from her evidently she was poorly responsive detention. She is flaccid on the left side from previous stroke she also has a right-sided facial droop and significant dysarthria. She recently been treated for right groin ulcer she also has some sacral ulcers on the thoracic spine pressure ulcer. She tells me she hurts everywhere but is not able to give me anything more specific. Onset (ago): unknown Relieving factors: none Associated symptoms: Reports confusion; Deny chest pain, cough, diaphoresis, decreased appetite, dyspnea, fevers/chills, headache(s), malaise, nausea, rash, palpitations, seizures, short of breath, syncope, vomiting or weakness Treatments prior to arrival: none Review of Systems Const: Denies: malaise or diaphoresis ENMT: Denies: throat pain, ear or mastoid pain, nasal discharge or nasal congestion Card: Denies: chest pain, palpitations or syncope Resp: Denies: dyspnea GI: Denies: nausea or vomiting : Denies: flank pain, difficulty voiding, dysuria, urinary frequency or urinary urgency Skin/Breast: Denies: rash Neuro: Reports: confusion; Denies: headache(s) [facility] ED PFSH: Medical History CKD (chronic kidney disease) CVA (cerebral vascular accident) left hemiparesis Depression Diabetes mellitus, type II a1c 10/2020 12.7 Dyslipidemia Feeling grief Headache History of seizure on topamax Hypertension hypertensive emergency 10/2020 Macular degeneration Neurogenic bladder suprapubic catheter, Obesity Obstructive pyelonephritis Recurrent UTI Requires assistance with activities of daily living (ADL) Ulcer of sacral region, stage 1 x 2, one on each buttock UTI (urinary tract infection) Surgical History H/O detached retina repair H/O oral surgery History of suprapubic catheter came out in 2019, not replaced S/P appendectomy S/P cataract surgery S/P cholecystectomy S/P knee surgery S/P shoulder surgery Family History Father Cancer Lymphoma Mother CAD (coronary artery disease) Diabetes Chronic kidney disease (CKD) Social History Alcohol intake: never Caregiver/support person: No Lives independently: No Marital status: Marital status details: 12/17/20 Current occupational status: disabled Physical Exam Const: GENERAL APPEARANCE: cooperative and comfortable ORIENTATION/CONSCIOUSNESS: Yes awake HENMT: COMMON NORMALS: normocephalic, atraumatic and hearing grossly normal bilaterally HEAD & SCALP: normocephalic and atraumatic Neck/C-Spine: COMMON NORMALS: no JVD Resp: COMMON NORMALS: normal respiratory effort, No retractions, No use of accessory muscles and clear to auscultation bilaterally AUSCULTATION: clear to auscultation bilaterally Cardio: COMMON NORMALS: no JVD, regular rate, regular rhythm and No murmurs present (Cardio) RATE: regular rate RHYTHM: regular rhythm GI: COMMON NORMALS: Soft to palpation and No hepatosplenomegaly present AUSCULTATION: Yes normoactive bowel sounds PALPATION: Yes Soft to palpation, No Tenderness to palpation present (GI), No Guarding due to palpation present (GI) and Yes No hepatosplenomegaly present Extremity: COMMON NORMALS: normal to inspection, capillary refill normal, no clubbing, cyanosis or edema, no calf tenderness and no pedal edema Skin: OTHER: Pressure ulcers over the mid thoracic spine at the 2 3 level. She also has some bilateral over the superior part of the sacrum. Neither were full-thickness. There are some excoriation in the right groin but it peers to be mostly healed. Course Vital Signs: Vital signs: Vital Signs Temperature 98.0 F 12/30/21 10:31 Pulse Rate 71 12/30/21 10:31 Respiratory Rate 16 12/30/21 10:31 Blood Pressure 122/73 12/30/21 10:31 Pulse Oximetry 98 12/30/21 10:31 [facility] - General Adult Medical Decision Making Labs and imaging reviewed. CT of the abdomen is pending as well as urine. Suspect infection. Discussed with hospitalist orders written. Medical Records I reviewed the patient's medical records. Lab Data I reviewed the patient's lab results. : 12/30/21 02:40 12/30/21 02:40 Radiology Impressions Chest X-Ray 12/29/21 16:11 IMPRESSION: Bilateral hilar to lower lobe atelectasis versus minimal infiltrate. Head CT 12/29/21 16:11 IMPRESSION: Negative for intracranial hemorrhage or mass effect Chest/Abdomen/Pelvis CT 12/29/21 19:11 IMPRESSION: 1. Mild bilateral posterior dependent atelectasis. 2. Atherosclerotic vascular disease including coronary artery disease. IMPRESSION: 1. Numerous small calculi measuring up to 5 mm within the mid and distal right ureter with severe right hydronephrosis. 2. Nonspecific bilateral perinephric fat stranding right greater than left. Pyelonephritis/UTI should be considered. 3. Suprapubic Root catheter in place within a nondistended decompressed urinary bladder. 4. Previous cholecystectomy. 5. Colonic diverticulosis without CT evidence of diverticulitis. 6. Large amount of inspissated stool within the rectum suggestive of constipation. 7. Atherosclerotic vascular disease. Laboratory Results WBC 17.3 10^3/uL (4.0-10.0) H 12/29/21 16:18 RBC 5.18 10^6/uL (4.1-5.3) 12/29/21 16:18 Hgb 14.2 g/dL (11.5-15.3) 12/29/21 16:18 Hct 46.1 % (37.0-47.0) 12/29/21 16:18 MCV 89.0 fl (81-99) 12/29/21 16:18 MCH 27.4 pg (28.0-34.0) L 12/29/21 16:18 MCHC 30.8 g/dL (30.0-36.0) 12/29/21 16:18 RDW 13.3 % (12.1-15.1) 12/29/21 16:18 Plt Count 469 10^3/cmm (130-400) H 12/29/21 16:18 MPV 9.4 fL (7.4-10.4) 12/29/21 16:18 Neut % (Auto) 83.1 % 12/29/21 16:18 Lymph % (Auto) 9.6 % 12/29/21 16:18 [place] % (Auto) 5.8 % 12/29/21 16:18 Eos % (Auto) 0.1 % 12/29/21 16:18 Baso % (Auto) 0.4 % 12/29/21 16:18 Neut # (Auto) 14.43 10^3/uL (1.8-7.7) H 12/29/21 16:18 Lymph # (Auto) 1.7 10^3/uL (0.8-4.8) 12/29/21 16:18 [place] # (Auto) 1.0 10^3/uL (0.2-0.9) H 12/29/21 16:18 Eos # (Auto) 0.0 10^3/uL (0.0-0.8) 12/29/21 16:18 Baso # (Auto) 0.1 10^3/uL (0.0-0.1) 12/29/21 16:18 Nucleated RBC % (auto) 0 % 12/29/21 16:18 Nucleated RBCs # 0.0 /100WBC 12/29/21 16:18 Specimen Type Arterial 12/29/21 16:42 Sample Site Brachial, left 12/29/21 16:42 ABG pH 7.31 (7.35-7.45) L 12/29/21 16:42 ABG pCO2 33.6 mmHg (35-45) L 12/29/21 16:42 ABG pO2 68.7 mmHg (80.0-100.0) L 12/29/21 16:42 ABG HCO3 17.1 mmol/L (22-26) L 12/29/21 16:42 ABG O2 Saturation 91.3 12/29/21 16:42 ABG Base Excess -8.2 mmol/L (-2.0-2.0) L 12/29/21 16:42 Mathieu Test N/a 12/29/21 16:42 A-a O2 Gradient 5.4 mmHg (5-10) 12/29/21 16:42 Hematocrit 40.9 % (37-47) 12/29/21 16:42 Hgb O2 Saturation 90.4 % (95-100) L 12/29/21 16:42 Carboxyhemoglobin 0.0 %THgb (0.4-20.1) L 12/29/21 16:42 Methemoglobin 1.0 % (0.4-1.5) 12/29/21 16:42 Total Hemoglobin 13.4 g/dL (12-16) 12/29/21 16:42 Sodium 144.0 mmol/L (131-143) H 12/29/21 16:42 Potassium 3.8 mmol/L (3.5-5.0) 12/29/21 16:42 Glucose 137.0 mg/dL (70-115) H 12/29/21 16:42 Ionized Calcium 1.2 mmol/L (1.1-1.4) 12/29/21 16:42 O2 Delivery Device Room air 12/29/21 16:42 FiO2 21.0 % 12/29/21 16:42 Master Hearth Technician ID Ed 12/29/21 16:42 Sodium 136 mmol/L (136-145) 12/29/21 16:18 Potassium 4.1 mmol/L (3.5-5.1) 12/29/21 16:18 Chloride 105 mmol/L (98-107) 12/29/21 16:18 Carbon Dioxide 17 mmol/L (22-29) L 12/29/21 16:18 Anion Gap 18.1 (5-19) 12/29/21 16:18 BUN 46 mg/dL (6-20) H 12/29/21 16:18 Creatinine 3.6 mg/dL (0.5-0.9) H 12/29/21 16:18 GFR Calculation 13.0 mL/min (90-130) L 12/29/21 16:18 Glucose 142 mg/dL (65-115) H 12/29/21 16:18 POC Glucose 145 mg/dL (70-110) H 12/29/21 16:21 Calculated Osmolality 296 mOsm/kg (285-295) H 12/29/21 16:18 Lactic Acid 0.8 mmol/L (0.5-2.2) 12/29/21 16:18 Calcium 9.2 mg/dL (8.5-10.5) 12/29/21 16:18 Total Bilirubin 0.2 mg/dL (0.15-1.2) 12/29/21 16:18 AST 7 U/L (0-32) 12/29/21 16:18 ALT < 5 U/L (0-33) 12/29/21 16:18 Alkaline Phosphatase 45 IU/L (35-105) 12/29/21 16:18 Creatine Kinase 47 U/L (26-192) 12/29/21 16:18 NT-Pro-B Natriuret Pep 1261 pg/mL (0-125) H 12/29/21 16:18 Total Protein 7.5 g/dL (6.6-8.7) 12/29/21 16:18 Albumin 3.4 g/dL (3.5-5.2) L 12/29/21 16:18 Globulin 4.1 g/dL (1.3-4.6) 12/29/21 16:18 Lipase 9 U/L (13-60) L 12/29/21 16:18 Procalcitonin 0.52 ng/mL (0-0.5) H 12/29/21 16:18 Prolactin 21.78 ng/mL (4.8-23.3) 12/29/21 16:18 Urine Color Yellow (Yellow) 12/29/21 16:54 Urine Appearance Cloudy (CLEAR) 12/29/21 16:54 Urine pH 5 (5-7) 12/29/21 16:54 Ur Specific [place] 1.025 (1.005-1.030) 12/29/21 16:54 Urine Protein 1+ (Negative) H 12/29/21 16:54 Urine Glucose (UA) Norm (Normal) 12/29/21 16:54 Urine Ketones 1+ (Negative) H 12/29/21 16:54 Urine Blood 3+ (Negative) H 12/29/21 16:54 Urine Nitrate Negative (Negative) 12/29/21 16:54 Urine Bilirubin Neg (Negative) 12/29/21 16:54 Urine Urobilinogen Neg mg/dL (Negative) 12/29/21 16:54 Ur Leukocyte Esterase 2+ (Negative) H 12/29/21 16:54 Urine RBC Too numerous to cnt /hpf (0-2) H 12/29/21 16:54 Urine WBC Too numerous to cnt /hpf (0-5) H 12/29/21 16:54 Ur Squamous Epith Cells Rare /hpf (0-5) 12/29/21 16:54 Amorphous Sediment Not Reportable 12/29/21 16:54 Urine Bacteria 2+ /hpf (NONE) H 12/29/21 16:54 Discharge Plan Discharge Patient Disposition: Admitted As Inpatient Admit Provider: Hillary Silva Clinical Impression: Diabetes mellitus, Hypertension, EFREN (acute kidney injury), History of stroke, Cystitis Condition: Stable Coding Level of Care Code ED Eligibility Consultant for Chg Fwd Exam Detailed
--- NOTE | 2021-12-29 16:11 | CTR_ITS ---
PROCEDURE INFORMATION: Exam: CT Head Without Contrast Exam date and time: 12/29/2021 4:11 PM Age: 56 years old Clinical indication: Alteration of consciousness; Transient alteration of awareness; Patient HX: Decreased rersponsiveness; Additional info: AMS TECHNIQUE: Imaging protocol: Computed tomography of the head without contrast. Radiation optimization: All CT scans at this facility use at least one of these dose optimization techniques: automated exposure control; mA and/or kV adjustment per patient size (includes targeted exams where dose is matched to clinical indication); or iterative reconstruction. COMPARISON: MR head wo con* [id number] 09/13/2021 2:41 PM RADIATION DOSE METRICS: Total DLP (mGy-cm): 1020.76 FINDINGS: Brain: Moderate diffuse white matter disease likely reflecting chronic microvascular ischemic changes. Chronic bilateral basal ganglia lacunar infarcts. Cerebral ventricles: No ventriculomegaly. Paranasal sinuses: Visualized sinuses are unremarkable. No fluid levels. Mastoid air cells: Visualized mastoid air cells are well aerated. Bones/joints: Unremarkable. No acute fracture. Soft tissues: Unremarkable. CT/CT head wo con* [id number] IMPRESSION: Negative for intracranial hemorrhage or mass effect
--- NOTE | 2021-12-29 16:11 | XRR_ITS ---
PROCEDURE INFORMATION: Exam: XR Chest Exam date and time: 12/29/2021 4:11 PM Age: 56 years old Clinical indication: Patient HX: C/O weakness, dyspnea, cough. Decreased intake/output. Decreased responsiveness. Noted ulcer to buttock and upper back. ; Additional info: Dyspnea/cough TECHNIQUE: Imaging protocol: XR of the chest. Views: 1 view. COMPARISON: CR XR chest 1V portable [id number] 09/13/2021 11:31 AM FINDINGS: Lungs: Bilateral hilar to lower lobe atelectasis versus minimal infiltrate. Pleural spaces: Unremarkable. No pleural effusion. No pneumothorax. Heart/Mediastinum: Unremarkable. No cardiomegaly. Bones/joints: Unremarkable. XR/XR chest 1V portable [id number] IMPRESSION: Bilateral hilar to lower lobe atelectasis versus minimal infiltrate.
[2021-12-29] MEDS: ondansetron 2 mg/ML SDV 2 mL 4 MG IVP (16:32)
[2021-12-29 16:33] LABS: Basophils # 0.1 10^3/uL (0.0-0.1); Basophils % 0.4 %; Eosinophils % 0.1 %; Hematocrit 46.1 % (37.0-47.0); Hemoglobin 14.2 g/dL (11.5-15.3); Lymphocytes # 1.7 10^3/uL (0.8-4.8); Lymphocytes % 9.6 %; Mean Corpuscular HGB Conc 30.8 g/dL (30.0-36.0); Mean Corpuscular Hemoglobin 27.4 pg (28.0-34.0); Mean Platelet Volume 9.4 fL (7.4-10.4); Monocytes % 5.8 %; Neutrophils # 14.43 10^3/uL (1.8-7.7); Neutrophils % 83.1 %; Nucleated Red Blood Cells % 0 %; Platelet Count 469 10^3/cmm (130-400); Red Blood Count 5.18 10^6/uL (4.1-5.3); Red Cell Distribution Width 13.3 % (12.1-15.1); White Blood Count 17.3 10^3/uL (4.0-10.0)
[2021-12-29 16:52] LABS: ABG PCO2 33.6 mmHg (35-45); ABG PH Result 7.31 (7.35-7.45); Alveolar-Arterial Oxygen Gradi 5.4 mmHg (5-10); Arterial Blood Gas Hematocrit 40.9 % (37-47); Base Excess ABG -8.2 mmol/L (-2.0-2.0); Blood Gas Operator Identificat ED; Blood Gas Sample Site Brachial, left; Blood Gas Sample Type Arterial; HCO3 ABG 17.1 mmol/L (22-26); HGB O2 Sat 90.4 % (95-100); Ionized Calcium Level - ABG 1.2 mmol/L (1.1-1.4); Oxygen Device ROOM AIR; Oxygen Saturation ABG 91.3; PO2 ABG 68.7 mmHg (80.0-100.0); Potassium Level - ABG 3.8 mmol/L (3.5-5.0); Total Hemoglobin 13.4 g/dL (12-16)
--- NOTE | 2021-12-29 16:53 | PC.PHAR ---
PT MEDICATIONS VERIFIED THROUGH AMY AND NURSE JOHNSTON FROM [facility] 12/29/21
[2021-12-29 17:01] LABS: Alanine Aminotransferase < 5 U/L (0-33); Albumin Level 3.4 g/dL (3.5-5.2); Alkaline Phosphatase 45 IU/L (35-105); Anion Gap 18.1 (5-19); Aspartate Amino Transferase 7 U/L (0-32); Blood Urea Nitrogen 46 mg/dL (6-20); Calcium 9.2 mg/dL (8.5-10.5); Carbon Dioxide 17 mmol/L (22-29); Chloride 105 mmol/L (98-107); Creatine Phosphokinase 47 U/L (26-192); Globulin 4.1 g/dL (1.3-4.6); Glucose 142 mg/dL (65-115); Lipase 9 U/L (13-60); Osmolality Calculated 296 mOsm/kg (285-295); Potassium 4.1 mmol/L (3.5-5.1); Sodium 136 mmol/L (136-145); Total Bilirubin 0.2 mg/dL (0.15-1.2); Total Protein 7.5 g/dL (6.6-8.7)
[2021-12-29 17:02] LABS: Lactic Sepsis W/Reflex 0.8 mmol/L (0.5-2.2)
[2021-12-29 18:06] LABS: NT Pro B Type Natriuretic Pept 1261 pg/mL (0-125)
--- NOTE | 2021-12-29 18:19 | PM.HP ---
Providers/Chief Complaint Primary Care Provider: Vu Neil Jr, MD Chief Complaint: INFECTED WOUND History of Present Illness Erika Shen is a 56 year old female was sent by Dr. Morton for her confusion, decreased p.o. intake and urine output. Patient is from [facility]. She has history of CVA with left-sided hemiparesis, she is a Robb lift, at baseline she is able to communicate. Dr. Morton sent her here for change in her mental status. Report was given to the ER that there are multiple ulcers however at the time of my evaluation there is mild skin sloughing around thoracic area, stage I ulcer around her buttocks, rt groin ulcer . Patient was able to tell me her name, date of . She was able to move her right arm and leg and follow commands. Blood pressure 136/78, pulse 83, temp 99.3 she is saturating well on room air. She looks very dehydrated with dry cracked lips. Suprapubic catheter draining yellow-colored urine. CT head unremarkable, CBC consistent with hemoconcentration, Dehydration related to EFREN She has multiple UTIs in the past, Proteus mirabilis. Got report from the long term that patient last night bit her tongue and this morning again blood was noticed in her mouth and her mentation had changed, she did not spike fever, no nausea, vomiting or diarrhea however her right groin wound has been packed with Dakin and she is getting doxycycline for that, follows up with Dr. Gama[facility] for her suprapubic catheter placement, Patient endorsed change of her taste and was not interested in eating anything that decreased her output Review of Systems General: Reports: ROS unobtainable due to medical condition (Possible UTI related delirium/TIA) Medications/Allergies Home Medications Medication Instructions Recorded Confirmed Last Taken Type escitalopram oxalate 20 mg tablet 20 mg PO DAILY@139912/01/19 12/29/21 12/29/21 08:00 History pravastatin 20 mg tablet 80 mg PO DAILY@139912/01/19 12/29/21 12/29/21 08:00 History solifenacin 5 mg tablet (Vesicare) 5 mg PO DAILY@139912/01/19 12/29/21 12/29/21 08:00 History topiramate 100 mg tablet (Topamax) 100 mg PO DAILY@1400 0112/29/21 12/29/21 08:00 History ondansetron HCl 4 mg tablet 4 mg PO Q6H PRN #20 tab 03/20/20 12/29/21 12/28/21 08:26 Rx (Zofran) cyclobenzaprine 10 mg tablet 10 mg PO TID PRN 10/12/20 12/29/21 12/22/20 History blood sugar diagnostic (Accu-Chek #10 ea 10/15/20 12/29/21 Unknown Rx Gaby Plus test strp) blood-glucose meter (Accu-Chek #1 ea 10/15/20 12/29/21 Unknown Rx Gaby Plus Meter) lancets (Accu-Chek Multiclix #100 ea 10/15/20 12/29/21 Unknown Rx Lancet) metoprolol succinate 200 mg 200 mg PO DAILY@14 12/17/20 12/29/21 12/29/21 08:00 History tablet,extended release 24 hr ascorbic acid (vitamin C) 1,000 mg 1,000 mg PO BID tab 05/01/21 12/29/21 12/29/21 08:00 History tablet methenamine hippurate 1 gram tablet 1 g PO BID 05/01/21 12/29/21 12/29/21 08:00 History sitagliptin 50 mg tablet (Januvia) 50 mg PO DAILY 05/01/21 12/29/21 12/29/21 08:00 History acetaminophen 325 mg capsule 325 mg PO QID PRN 08/03/21 12/29/21 Unknown History (Tylenol) bisacodyl 10 mg rectal suppository 10 mg [place] DAILY PRN 08/03/21 12/29/21 Unknown History insulin glargine 100 unit/mL (3 22 unit SUBCUT .pm ml 08/03/21 12/29/21 12/28/21 History mL) subcutaneous pen (Lantus Solostar U-100 Insulin) hydrocodone 5 mg-acetaminophen 325 1 tab PO Q6H PRN 11/20/21 12/29/21 Unknown History mg tablet amino acids-protein hydrolysate 15 1 ea PO BID 12/29/21 12/29/21 12/29/21 12:00 History gram-101 kcal/30 mL oral liquid doxycycline hyclate 100 mg tablet 100 mg PO BID 12/29/21 12/29/21 12/29/21 12:00 History polyethylene glycol 3350 17 17 g PO DAILY 12/29/21 12/29/21 12/26/21 History gram/dose oral powder (Miralax) sennosides 8.6 mg tablet (senna) 8.6 mg PO BID PRN 12/29/21 12/29/21 Unknown History tramadol 50 mg tablet 50 mg PO Q6H PRN 12/29/21 12/29/21 Unknown History Allergies Allergy/AdvReac Type Severity Reaction Status Date / Time levofloxacin [From Levaquin] Allergy NA Verified 12/29/21 16:59 metronidazole [From Flagyl] Allergy NA Verified 12/29/21 16:59 miconazole Allergy NA Verified 12/29/21 16:59 Sulfa (Sulfonamide Allergy NA Verified 12/29/21 16:59 Antibiotics) PFSH Acute PFSH: Medical History CKD (chronic kidney disease) CVA (cerebral vascular accident) left hemiparesis Depression Diabetes mellitus, type II a1c 10/2020 12.7 Dyslipidemia Feeling grief Headache History of seizure on topamax Hypertension hypertensive emergency 10/2020 Macular degeneration Neurogenic bladder previous suprapubic catheter, history of intermittent self catheterization. Obesity Recurrent UTI Requires assistance with activities of daily living (ADL) Ulcer of sacral region, stage 1 x 2, one on each buttock UTI (urinary tract infection) Surgical History H/O detached retina repair H/O oral surgery History of suprapubic catheter came out in 2019, not replaced S/P appendectomy S/P cataract surgery S/P cholecystectomy S/P knee surgery S/P shoulder surgery Family History Father Cancer Lymphoma Mother CAD (coronary artery disease) Diabetes Chronic kidney disease (CKD) Social History Alcohol intake: never Caregiver/support person: No Lives independently: No Marital status: Marital status details: 12/17/20 Current occupational status: disabled Vitals/I&O/Wt Last Vital Signs Temp 99.3 F 12/29/21 16:01 Pulse 83 12/29/21 17:23 Resp 16 12/29/21 17:23 BP 141/82 12/29/21 17:23 Pulse Ox 99 12/29/21 17:23 Weight last 48 hrs Weight 136.078 kg Physical Exam Narrative: Patient was laying supine She was able to make eye contact She was able to tell me her date of , was following command she was able to lift her right arm to some extent, lift her right leg She has weakness of left side of her body Left-sided facial droop noted When asked her to show me her tongue noticed some crusted blood around her tongue Pupils are not reactive to light However they are symmetrical She is hemodynamically stable Does look dehydrated with dry cracked lips S1, S2 Distended abdomen, nontender, soft Right groin ulcer packed with Dakin's, foul-smelling Some sloughing of skin around thoracic region Stage I ulcer buttocks Suprapubic catheter draining yellow urine Data : 12/29/21 16:18 12/29/21 16:18 A&P Assessment and plan (1) Left pontine stroke: Status: Acute (2) Neurogenic bladder: Status: Acute (3) Recurrent UTI: Status: Acute (4) TIA (transient ischemic attack): Status: Acute (5) Groin ulcer: Status: Acute (6) Dehydration: Status: Acute (7) EFREN (acute kidney injury): Status: Acute Plan senior living patient who has left hemiparesis from previous stroke, left-sided facial droop, some dysarthria presented to the hospital after tongue bite, change in mentation and poor p.o. intake TIA Concern for breakthrough seizure? Check prolactin, will give her [address] head unremarkable Noticed crusted blood around her tongue Right now patient is able to tell me her date of and follow commands Discontinue tramadol and antidepressants Will obtain chest abdomen pelvis imaging, Covid PCR Dehydration related EFREN EFREN multifactorial related to UTI and dehydration Start IV fluids Suprapubic catheter draining yellow-colored urine, history of recurrent UTIs, we will keep her on vancomycin and Zosyn And choosing Zosyn for her recurrent UTIs, previous culture showed Proteus, E. coli, Enterobacter, which was sensitive to penicillin And choosing vancomycin for her foul-smelling right groin ulcer which is packed with Dakin Lactic acid is normal, no active signs of sepsis however she has severe leukocytosis Pressure offloading of thoracic area skin sloughing no active signs of infection Stage I ulcer of buttocks, nursing care every 2 hours change position Suprapubic catheter for neurogenic bladder, Dr. [facility] has been changing the catheter as it has been clogging lately, no active signs of obstruction, will follow CT abdomen pelvis I will keep patient on full liquid diet, DVT prophylaxis with heparin Full code I will decrease the dose of insulin and use sliding scale Decrease the dose of metoprolol because of worsening creatinine Attestations Medical Necessity Statement*: More than 2 midnights anticipated Time Spent in Patient Care: 35min Coding Level of Care Code Acute Planning Assistant for [employer] Fwd Diagnoses Left pontine stroke I63.9 Neurogenic bladder N31.9 Recurrent UTI N39.0 TIA (transient ischemic attack) G45.9 Groin ulcer L98.499 Dehydration E86.0 EFREN (acute kidney injury) N17.9
[2021-12-29 18:34] LABS: Glucose Urine UA Norm (Normal); Ketones Urine 1+ (Negative); Protein Urine 1+ (Negative); Specific Gravity, Urine 1.025 (1.005-1.030); Urine Appearance Cloudy (CLEAR); Urine Color Yellow (Yellow); pH Urine 5 (5-7)
[2021-12-29 18:35] LABS: Add Urine Microscopic? YES; Bilirubin Urine Neg (Negative); Blood Urine 3+ (Negative); Leukocyte Esterase Urine 2+ (Negative); Nitrate Urine Negative (Negative); Urobilinogen Urine Neg (Negative)
[2021-12-29 18:36] LABS: Add Urine Culture? Yes; Bacteria Urine 2+ /hpf; RBC Urine TOO NUMEROUS TO CNT /hpf (0-2); Squamous Epithelial Cell Urine RARE /hpf (0-5); WBC Urine TOO NUMEROUS TO CNT /hpf (0-5)
[2021-12-29] MEDS: vancomycin 1,000 MG in sodium chloride 0.9% 250 ML 250 MG IV ×2 (18:51→23:56)
--- NOTE | 2021-12-29 19:11 | CTR_ITS ---
PROCEDURE INFORMATION: Exam: CT Chest Without Contrast; Diagnostic Exam date and time: 12/29/2021 7:11 PM Age: 56 years old Clinical indication: Shortness of breath; Prior surgery; Surgery type: Gb. Appy. Shoulder. Suprapubic catheter. ; Patient HX: SOB with leroy. Elevated wbc. ; Additional info: Leroy , confusion TECHNIQUE: Imaging protocol: Diagnostic computed tomography of the chest without contrast. Radiation optimization: All CT scans at this facility use at least one of these dose optimization techniques: automated exposure control; mA and/or kV adjustment per patient size (includes targeted exams where dose is matched to clinical indication); or iterative reconstruction. COMPARISON: CR XR chest 1V portable [id number] 12/29/2021 4:15 PM RADIATION DOSE METRICS: Total DLP (mGy-cm): FINDINGS: Thyroid: Incidental tiny 9 mm left thyroid lobe nodule, for which no additional follow-up is recommended. Lungs: Mild bilateral posterior dependent atelectasis. No consolidation. Pleural spaces: Unremarkable. No pneumothorax. No pleural effusion. Heart: Heart size is normal. Interatrial septal lipoma noted. Dense coronary artery calcifications. Aorta: Atherosclerotic tortuosity and calcification of the thoracic aorta. No aortic aneurysm. Lymph nodes: No enlarged lymph nodes. Bones/joints: No acute osseous abnormality. No acute fracture. Soft tissues: No significant soft tissue abnormalities. PROCEDURE INFORMATION: Exam: CT Abdomen And Pelvis Without Contrast Exam date and time: 12/29/2021 7:11 PM Age: 56 years old Clinical indication: Shortness of breath; Prior surgery; Surgery type: Gb. Appy. Shoulder. Suprapubic catheter. ; Patient HX: SOB with leroy. Elevated wbc. ; Additional info: Leroy , confusion TECHNIQUE: Imaging protocol: Computed tomography of the abdomen and pelvis without contrast. Radiation optimization: All CT scans at this facility use at least one of these dose optimization techniques: automated exposure control; mA and/or kV adjustment per patient size (includes targeted exams where dose is matched to clinical indication); or iterative reconstruction. COMPARISON: 1. CR XR chest 1V portable [id number] 12/29/2021 4:[address] kidney stone [id number] 06/20/2021 12:11 PM RADIATION DOSE METRICS: Total DLP (mGy-cm): FINDINGS: Liver: No acute abnormality on noncontrast imaging. Gallbladder and bile ducts: Previous cholecystectomy. Pancreas: No acute abnormality. No ductal dilation. Spleen: No acute abnormality. Adrenal glands: No acute abnormality. No mass. Kidneys and ureters: Numerous small calculi measuring up to 5 mm within the mid and distal right ureter with severe right hydronephrosis. Bilateral renal vascular calcifications. Nonspecific bilateral perinephric fat stranding right greater than left. A couple stable incidental bilateral renal cortical lesions measuring up to 2.6 cm likely slightly hyperdense cysts. Stomach and bowel: No significant large or small bowel distention. Colonic diverticulosis without CT evidence of diverticulitis. Large amount of inspissated stool within the rectum suggestive of constipation. Appendix: Absent. Intraperitoneal space: No significant fluid collection. No free air. Vasculature: Diffuse atherosclerotic vascular calcification. No aortic aneurysm. Lymph nodes: No enlarged lymph nodes. Urinary bladder: Suprapubic Root catheter in place within a nondistended decompressed urinary bladder. No definite bladder calculi. Reproductive: Unremarkable as visualized. Bones/joints: No acute osseous abnormality. No dislocation. Soft tissues: No significant soft tissue abnormalities. CT/CT chest abd pel wo con IMPRESSION: 1. Mild bilateral posterior dependent atelectasis. 2. Atherosclerotic vascular disease including coronary artery disease. IMPRESSION: 1. Numerous small calculi measuring up to 5 mm within the mid and distal right ureter with severe right hydronephrosis. 2. Nonspecific bilateral perinephric fat stranding right greater than left. Pyelonephritis/UTI should be considered. 3. Suprapubic Root catheter in place within a nondistended decompressed urinary bladder. 4. Previous cholecystectomy. 5. Colonic diverticulosis without CT evidence of diverticulitis. 6. Large amount of inspissated stool within the rectum suggestive of constipation. 7. Atherosclerotic vascular disease.
[2021-12-29 19:51] LABS: Procalcitonin 0.52 ng/mL (0-0.5)
[2021-12-29 21:29] LABS: Prolactin 21.78 ng/mL (4.8-23.3)
[2021-12-29 23:41] LABS: Adenovirus Not Detected (NOT DETECT); Chlamydia Pneumoniae Not Detected (NOT DETECT); Coronavirus 229E,HKU1,NL63,OC4 Not Detected (NOT DETECT); Human Metapneumovirus Not Detected (NOT DETECT); Human Rhinovirus/Enterovirus Not Detected (NOT DETECT); Influenza A Not Detected (NOT DETECT); Influenza A H1 Not Detected (NOT DETECT); Influenza A H1-2009 Not Detected (NOT DETECT); Influenza A H3 Not Detected (NOT DETECT); Influenza B Not Detected (NOT DETECT); Mycoplasma Pneumoniae Not Detected (NOT DETECT); Parainfluenza Virus Type 1 Not Detected (NOT DETECT); Parainfluenza Virus Type 2 Not Detected (NOT DETECT); Parainfluenza Virus Type 3 Not Detected (NOT DETECT); Parainfluenza Virus Type 4 Not Detected (NOT DETECT); Respiratory Syncytial Virus A Not Detected (NOT DETECT); Respiratory Syncytial Virus B Not Detected (NOT DETECT); SARS-COV-2 Not Detected (NOT DETECT)
[2021-12-29] MEDS: heparin 5,000 unit/mL INJ 1 mL 5000 UNIT SUBCUT (23:55)
[2021-12-29] MEDS: insulin glargine 100 units/1 mL 15 UNIT SUBCUT (23:57)
[2021-12-29] MEDS: sodium chloride 0.9% 1,000 ML 75 ML IV (23:57)
[2021-12-29] MEDS: piperacillin-tazobactam 3.375 GM in sodium chloride 0.9% (plus) 50 ML IV (23:58)
[2021-12-30] VITALS (36 sets, daily range): BP systolic 99–150; BP diastolic 65–83; PULSE 70–107; RESP 10–25; TEMP 36.7–37; O2SAT 92–100
--- NOTE | 2021-12-30 | SCC_ITS ---
Procedure done: Cystoscopy, RIGHT ureteral stent placement (8 [place] by 28 cm double- pigtail without string) Suprapubic tube change (22 [place] two-way Root catheter 10 cc balloon) Dressing change right groin wound. 7.4 seconds of fluoroscopic guidance, for a cumulative dose of 0.85 mGy, was provided to Dr. Gama by the radiology department. C-arm images of the abdomen were saved for the patient's permanent record. JES
[2021-12-30 03:52] LABS: Basophils # 0.1 10^3/uL (0.0-0.1); Basophils % 0.5 %; Eosinophils % 0.1 %; Hematocrit 43.6 % (37.0-47.0); Hemoglobin 13.3 g/dL (11.5-15.3); Lymphocytes # 1.9 10^3/uL (0.8-4.8); Lymphocytes % 12.9 %; Mean Corpuscular HGB Conc 30.5 g/dL (30.0-36.0); Mean Corpuscular Hemoglobin 27.7 pg (28.0-34.0); Mean Corpuscular Volume 90.8 fl (81-99); Mean Platelet Volume 9.6 fL (7.4-10.4); Monocytes # 1.1 10^3/uL (0.2-0.9); Monocytes % 7.1 %; Neutrophils # 11.77 10^3/uL (1.8-7.7); Neutrophils % 78.5 %; Nucleated Red Blood Cells % 0 %; Platelet Count 421 10^3/cmm (130-400); Red Cell Distribution Width 13.4 % (12.1-15.1)
[2021-12-30 03:59] LABS: Glucose Point of Care 145 mg/dL (70-110)
[2021-12-30 04:12] LABS: Alanine Aminotransferase < 5 U/L (0-33); Albumin Level 3.3 g/dL (3.5-5.2); Alkaline Phosphatase 46 IU/L (35-105); Aspartate Amino Transferase 9 U/L (0-32); Blood Urea Nitrogen 53 mg/dL (6-20); C Reactive Protein 50.8 mg/L (0.0-4.9); Calcium 9.3 mg/dL (8.5-10.5); Carbon Dioxide 17 mmol/L (22-29); Chloride 109 mmol/L (98-107); Globulin 3.7 g/dL (1.3-4.6); Glomerular Filtration Rate 13.5 mL/min (90-130); Glucose 136 mg/dL (65-115); Magnesium 1.9 mg/dL (1.7-2.3); Osmolality Calculated 312 mOsm/kg (285-295); Sodium 143 mmol/L (136-145); Total Bilirubin 0.3 mg/dL (0.15-1.2)
[2021-12-30] MEDS: heparin 5,000 unit/mL INJ 1 mL 5000 UNIT SUBCUT (04:35)
[2021-12-30 07:11] LABS: Glucose Point of Care 121 mg/dL (70-110)
--- NOTE | 2021-12-30 08:20 | PM.CONSULT ---
Providers/Reason For Consult Consulting Physician/Specialty*: Gama/urology Reason for Consult*: Right obstructive pyelonephritis Requesting Physician: Dr. Silva Attending Physician: Hillary Silva MD Primary Care Provider: Vu Niel Jr, MD History of Present Illness History of Present Illness Erika Shen is a 56 year old female well-known to me for history of chronic neurogenic bladder requiring suprapubic tube for chronic management. Presented to the department yesterday with evidence of systemic infection as manifested by decreasing mentation. Has other sites of infection including a chronic groin ulcer. Has been known to have chronic urinary tract infections and has been on methenamine long-term for that. Chronic [facility] the [facility] on a regular basis. Scan demonstrated new onset right hydronephrosis related to multiple stones in the right ureter with perirenal/ureteral stranding. Urine is grossly infected. White count is elevated. Initially she was hypotensive but responded to fluid boluses. Currently on antibiotics. I recommended right ureteral stent placement emergently to relieve the obstruction, improved the antibiotic response, with plan delayed definitive treatment of stones. I spoke to Don nurse responsible for Ms. Shen at [place] who stated that she was her on Signy for consents. I also spoke to her family member, [id number] Keyona Johnston who agreed with that statement as well. Updated her on the rationale for proceeding and she was in agreement. Review of Systems General: Reports: ROS unobtainable due to medical condition Narrative: Unable to obtain what information was gleaned in talking to her was that she was hurting on her right side, and also just felt poorly all over. She appeared to understand what I was saying but could not respond clearly verbally presumably because of her CVA. Medications/Allergies Home Medications Medication Instructions Recorded Confirmed Last Taken Type escitalopram oxalate 20 mg tablet 20 mg PO DAILY@139912/01/19 12/29/21 12/29/21 08:00 History pravastatin 20 mg tablet 80 mg PO DAILY@139912/01/19 12/29/21 12/29/21 08:00 History solifenacin 5 mg tablet (Vesicare) 5 mg PO DAILY@139912/01/19 12/29/21 12/29/21 08:00 History topiramate 100 mg tablet (Topamax) 100 mg PO DAILY@1400 12/01/19 12/29/21 12/29/21 08:00 History ondansetron HCl 4 mg tablet 4 mg PO Q6H PRN #20 tab 03/20/20 12/29/21 12/28/21 08:26 Rx (Zofran) cyclobenzaprine 10 mg tablet 10 mg PO TID PRN 10/12/20 12/29/21 12/22/20 History blood sugar diagnostic (Accu-Chek #10 ea 10/15/20 12/29/21 Unknown Rx Gaby Plus test strp) blood-glucose meter (Accu-Chek #1 ea 10/15/20 12/29/21 Unknown Rx Gaby Plus Meter) lancets (Accu-Chek Multiclix #100 ea 10/15/20 12/29/21 Unknown Rx Lancet) metoprolol succinate 200 mg 200 mg PO DAILY@14 12/17/20 12/29/21 12/29/21 08:00 History tablet,extended release 24 hr ascorbic acid (vitamin C) 1,000 mg 1,000 mg PO BID tab 05/01/21 12/29/21 12/29/21 08:00 History tablet methenamine hippurate 1 gram tablet 1 g PO BID 05/01/21 12/29/21 12/29/21 08:00 History sitagliptin 50 mg tablet (Januvia) 50 mg PO DAILY 05/01/21 12/29/21 12/29/21 08:00 History acetaminophen 325 mg capsule 325 mg PO QID PRN 08/03/21 12/29/21 Unknown History (Tylenol) bisacodyl 10 mg rectal suppository 10 mg [place] DAILY PRN 08/03/21 12/29/21 Unknown History insulin glargine 100 unit/mL (3 22 unit SUBCUT .pm ml 08/03/21 12/29/21 12/28/21 History mL) subcutaneous pen (Lantus Solostar U-100 Insulin) hydrocodone 5 mg-acetaminophen 325 1 tab PO Q6H PRN 11/20/21 12/29/21 Unknown History mg tablet amino acids-protein hydrolysate 15 1 ea PO BID 12/29/21 12/29/21 12/29/21 12:00 History gram-101 kcal/30 mL oral liquid doxycycline hyclate 100 mg tablet 100 mg PO BID 12/29/21 12/29/21 12/29/21 12:00 History polyethylene glycol 3350 17 17 g PO DAILY 12/29/21 12/29/21 12/26/21 History gram/dose oral powder (Miralax) sennosides 8.6 mg tablet (senna) 8.6 mg PO BID PRN 12/29/21 12/29/21 Unknown History tramadol 50 mg tablet 50 mg PO Q6H PRN 12/29/21 12/29/21 Unknown History Allergies Allergy/AdvReac Type Severity Reaction Status Date / Time levofloxacin [From Levaquin] Allergy NA Verified 12/29/21 16:59 metronidazole [From Flagyl] Allergy NA Verified 12/29/21 16:59 miconazole Allergy NA Verified 12/29/21 16:59 Sulfa (Sulfonamide Allergy NA Verified 12/29/21 16:59 Antibiotics) Current Medications Generic Name Dose Route Start Last Admin Trade Name Freq PRN Reason Stop Dose Admin Heparin Sodium (Porcine) 5,000 unit 12/29/21 20:57 12/30/21 04:35 Heparin 5,000 Unit/Ml Inj 1 Ml SUBCUT 5,000 unit Q8H ED Administration Sodium Chloride 1,000 mls @ 75 mls/hr 12/29/21 20:57 12/29/21 23:57 Sodium Chloride 0.9% IV 75 mls/hr .[id number] ED Administration Piperacillin Sod/Tazobactam 50 mls @ 12.5 mls/hr 12/29/21 23:00 12/30/21 06:00 Sod 3.375 gm/ Sodium Chloride IV Infused Q12H ED Infusion Protocol Insulin Glargine 15 unit 12/29/21 21:30 12/29/21 23:57 Insulin Glargine 100 Units/1 Ml SUBCUT 15 unit BEDTIME ED Administration Insulin Human Lispro 0 unit 12/30/21 08:00 12/30/21 07:50 Insulin Lispro 100 Unit/1 Ml SUBCUT Not Given TIDWM ED Protocol PFSH Acute PFSH: Medical History CKD (chronic kidney disease) CVA (cerebral vascular accident) left hemiparesis Depression Diabetes mellitus, type II a1c 10/2020 12.7 Dyslipidemia Feeling grief Headache History of seizure on topamax Hypertension hypertensive emergency 10/2020 Macular degeneration Neurogenic bladder suprapubic catheter, Obesity Obstructive pyelonephritis Recurrent UTI Requires assistance with activities of daily living (ADL) Ulcer of sacral region, stage 1 x 2, one on each buttock UTI (urinary tract infection) Surgical History H/O detached retina repair H/O oral surgery History of suprapubic catheter came out in 2019, not replaced S/P appendectomy S/P cataract surgery S/P cholecystectomy S/P knee surgery S/P shoulder surgery Family History Father Cancer Lymphoma Mother CAD (coronary artery disease) Diabetes Chronic kidney disease (CKD) Social History Alcohol intake: never Caregiver/support person: No Lives independently: No Marital status: Marital status details: 12/17/20 Current occupational status: disabled Vitals/I&O/Wt Last Vital Signs Temp 99.3 F 12/29/21 16:01 Pulse 72 12/30/21 06:00 Resp 16 12/29/21 18:37 BP 136/78 12/29/21 18:37 Pulse Ox 97 12/29/21 18:37 12/29/21 12/30/21 12/30/21 22:59 06:59 14:59 Intake Total 250 / 250 410 / 660 Balance 250 / 250 410 / 660 Weight last 48 hrs Weight 300 lb Weight 300 lb Physical Exam Const: OTHER: Appears ill. Not able to communicate well due to CVA residue HENMT: OTHER: Atraumatic, normocephalic Eye: OTHER: No scleral icterus Lymph: OTHER: No lymphadenopathy Resp: COMMON NORMALS: normal respiratory effort and clear to auscultation bilaterally AUSCULTATION: clear to auscultation bilaterally Cardio: COMMON NORMALS: regular rate and regular rhythm RATE: regular rate RHYTHM: regular rhythm GI: COMMON NORMALS: Soft to palpation PALPATION: Yes Soft to palpation, Yes Firmness to palpation present (GI) and Yes Tenderness to palpation present (GI) : OTHER: bladder not distended No lesions of the external female genitalia. Normal urethral meatus and palpate normal urethra. Nonspecific vaginal discharge. Neuro: OTHER: Left hemiparesis Psych: MOOD & AFFECT: Yes depressed mood Skin: COMMON NORMALS: no jaundice OTHER: Right groin ulcer Data : 12/31/21 04:51 12/31/21 04:51 Micro: Microbiology 12/29/21 19:53 Blood Culture - Preliminary Blood SPECIMEN COLLECTED 12/29/21 19:02 Blood Culture - Preliminary Blood SPECIMEN COLLECTED A&P Assessment and plan (1) Obstructive pyelonephritis: Multiple stones right ureter causing obstruction obvious UTI. Recommend emergent right ureteral stent placement. Status: Acute (2) Neurogenic bladder: chronic sp tube Status: Acute (3) Recurrent UTI: Status: Acute (4) Diabetes mellitus: Status: Acute (5) Groin ulcer: Status: Acute (6) EFREN (acute kidney injury): Status: Acute (7) History of ischemic vertebrobasilar artery thalamic stroke: Status: Acute Coding Level of Care Code Acute Edi Programmer Analyst for [facility] Fwd Exam Detailed Diagnoses Neurogenic bladder N31.9 Recurrent UTI N39.0 Diabetes mellitus E11.9 Obstructive pyelonephritis N11.1 Groin ulcer L98.499 EFREN (acute kidney injury) N17.9 History of ischemic vertebrobasilar artery thalamic stroke Z86.73
--- NOTE | 2021-12-30 09:00 | PC.NURSE ---
Patient left floor for surgery
--- NOTE | 2021-12-30 09:15 | PM.OP ---
Operative Report Date of procedure: December 30, 2021 Pre-op diagnosis: Preop Diagnosis RIGHT obstructive pyelonephritis Post-op diagnosis: RIGHT obstructive pyelonephritis Procedure done: Cystoscopy, RIGHT ureteral stent placement (8 B[place] by 28 cm double-pigtail without string) Suprapubic tube change (22 [place]ian two-way Root catheter 10 cc balloon) Dressing change right groin wound. Pathology: None Surgeon: Natan Anesthesia: General Estimated blood loss: Minimal Urine output: Not measured Complications: None Findings: 1. Stent placed easily with purulent drainage noted 2. Suprapubic tube changed. See above. 3. Right groin wound dressing removed, wound irrigated, new dressing placed. Condition: other (Poor) Brief History: Erika is a very unfortunate 56-year-old white female with severe multiple comorbidities including diabetes, multiple strokes, neurogenic bladder (status post suprapubic tube) who presented with obstructive pyelonephritis with multiple stones in the right ureter and the level of obstruction at the very distal ureter. She was found to have UTI. Was recommended that she go emergently to the operating room for right ureteral stent placement in order to facilitate improvement of treatment of infection and then a delayed date if she is does well then treat the stones. I reviewed with her family members Adriana and Keyona and they were in agreement. Patient is responsible for her own consents. This was considered an emergent case. Procedure: After emergent evaluation examination and obtaining of informed consent she was taken to the operating suite on 12/30/2021 where general anesthesia was administered without difficulty after appropriate timeout was performed, SCDs confirmed to be functioning, therapeutic antibiotics administered, beta-lázaro protocol confirmed. Prepped and draped you sterile fashion in dorsolithotomy position paying careful attention to avoiding pressure points. Suprapubic tube was prepped into the field as well and drain tube clamped. 21 [place]ian cystoscope with 30 degree lens was introduced into the urethra meatus and advanced into the bladder under videoscopy. Bladder was systematically examined. Evidence of cystitis identified. Tube in good position. No other gross pathology. Flexible tip guidewire was then advanced up the right ureter bypassing the stones curling in the area of the renal pelvis. An 8.5 [place]ian by 28 cm double-pigtail stent was advanced over the guidewire through the cystoscope into appropriate position as confirmed via fluoroscopy and cystoscopy. The suprapubic tube was then removed after deflating the balloon and replaced with a 22 [place]ian 5 cc catheter. Function was confirmed. Catheter appropriate position confirmed as well cystoscopically. She tolerated procedure well without complications. She was returned to PACU in stable condition PLANS: 1. Delayed treatment of the stones until she has recovered from her infection. I do not anticipate any other urologic intervention while she is hospitalized this day but will follow and make arrangements as appropriate for attempt at definitive treatment of the stones. 2. Wet to dry dressing changes to the right groin wound daily 3. Maintain suprapubic tube
--- NOTE | 2021-12-30 09:20 | P.ANESASSM_ITS ---
Pre-Anesthetic Assessment Height/Weight: Height 1.78 m Weight 136.078 kg Temp Pulse Resp BP Pulse Ox 99.3 F 76 16 136/78 97 12/29/21 16:01 12/30/21 09:07 12/30/21 09:07 12/29/21 18:37 12/30/21 09:07 Preop Diagnosis: Chronic neurogenic bladder with indwelling Root Operation Date: 12/30/21 09:50 Proposed Procedures p Cystoscopy(Right) - Osorio Gama MD s Ureteral Stent Placement(Right) - Osorio Gama MD Familial anesthetic complications: None Was Beta Henry taken within 24 hours: Yes Was Clonidine taken within 24 hours: N/A Last intake: > 8 hrs Social No alcohol and No tobacco Exam oriented x 3, clear to auscultation bilaterally and regular rate & rhythm Airway Mallampati: Class IV Dentition: other (multiple missing teeth) Comments: Comments: Dried blood in mouth, has bitten tongue CV/HEM Hypertension Chronic Renal Insufficiency EFREN Metabolic Diabetes Mellitus Neuropsych Cerebrovascular Accident Anesthetic Plan ASA status: 4E Anesthesia: General Risk of > 500 ml blood loss (7ml/kg in children): No Medications/Allergies Home Medications Medication Instructions Recorded Confirmed Last Taken Type escitalopram oxalate 20 mg tablet 20 mg PO DAILY@139912/01/19 12/29/21 12/29/21 08:00 History pravastatin 20 mg tablet 80 mg PO DAILY@139912/01/19 12/29/21 12/29/21 08:00 History solifenacin 5 mg tablet (Vesicare) 5 mg PO DAILY@139912/01/19 12/29/21 12/29/21 08:00 History topiramate 100 mg tablet (Topamax) 100 mg PO DAILY@139912/01/19 12/29/21 12/29/21 08:00 History ondansetron HCl 4 mg tablet 4 mg PO Q6H PRN #20 tab 03/20/20 12/29/21 12/28/21 08:26 Rx (Zofran) cyclobenzaprine 10 mg tablet 10 mg PO TID PRN 10/12/20 12/29/21 12/22/20 History blood sugar diagnostic (Accu-Chek #10 ea 10/15/20 12/29/21 Unknown Rx Gaby Plus test strp) blood-glucose meter (Accu-Chek #1 ea 10/15/20 12/29/21 Unknown Rx Gaby Plus Meter) lancets (Accu-Chek Multiclix #100 ea 10/15/20 12/29/21 Unknown Rx Lancet) metoprolol succinate 200 mg 200 mg PO DAILY@14 12/17/20 12/29/21 12/29/21 08:00 History tablet,extended release 24 hr ascorbic acid (vitamin C) 1,000 mg 1,000 mg PO BID tab 05/01/21 12/29/21 12/29/21 08:00 History tablet methenamine hippurate 1 gram tablet 1 g PO BID 05/01/21 12/29/21 12/29/21 08:00 History sitagliptin 50 mg tablet (Januvia) 50 mg PO DAILY 05/01/21 12/29/21 12/29/21 08:00 History acetaminophen 325 mg capsule 325 mg PO QID PRN 08/03/21 12/29/21 Unknown History (Tylenol) bisacodyl 10 mg rectal suppository 10 mg AK DAILY PRN 08/03/21 12/29/21 Unknown History insulin glargine 100 unit/mL (3 22 unit SUBCUT .pm ml 08/03/21 12/29/21 12/28/21 History mL) subcutaneous pen (Lantus Solostar U-100 Insulin) hydrocodone 5 mg-acetaminophen 325 1 tab PO Q6H PRN 11/20/21 12/29/21 Unknown History mg tablet amino acids-protein hydrolysate 15 1 ea PO BID 12/29/21 12/29/21 12/29/21 12:00 History gram-101 kcal/30 mL oral liquid doxycycline hyclate 100 mg tablet 100 mg PO BID 12/29/21 12/29/21 12/29/21 12:00 History polyethylene glycol 3350 17 17 g PO DAILY 12/29/21 12/29/21 12/26/21 History gram/dose oral powder (Miralax) sennosides 8.6 mg tablet (senna) 8.6 mg PO BID PRN 12/29/21 12/29/21 Unknown History tramadol 50 mg tablet 50 mg PO Q6H PRN 12/29/21 12/29/21 Unknown History Allergies Allergy/AdvReac Type Severity Reaction Status Date / Time levofloxacin [From Levaquin] Allergy NA Verified 12/29/21 16:59 metronidazole [From Flagyl] Allergy NA Verified 12/29/21 16:59 miconazole Allergy NA Verified 12/29/21 16:59 Sulfa (Sulfonamide Allergy NA Verified 12/29/21 16:59 Antibiotics) Current Medications Generic Name Dose Route Start Last Admin Trade Name Freq PRN Reason Stop Dose Admin Heparin Sodium (Porcine) 5,000 unit 12/29/21 20:57 12/30/21 04:35 Heparin 5,000 Unit/Ml Inj 1 Ml SUBCUT 5,000 unit Q8H ED Administration Sodium Chloride 1,000 mls @ 75 mls/hr 12/29/21 20:57 12/29/21 23:57 Sodium Chloride 0.9% IV 75 mls/hr .[id number] ED Administration Piperacillin Sod/Tazobactam 50 mls @ 12.5 mls/hr 12/29/21 23:00 12/30/21 06:00 Sod 3.375 gm/ Sodium Chloride IV Infused Q12H ED Infusion Protocol Insulin Glargine 15 unit 12/29/21 21:30 12/29/21 23:57 Insulin Glargine 100 Units/1 Ml SUBCUT 15 unit BEDTIME ED Administration Insulin Human Lispro 0 unit 12/30/21 08:00 12/30/21 07:50 Insulin Lispro 100 Unit/1 Ml SUBCUT Not Given TIDWM ED Protocol [facility] Anesthesia Medical History (Updated 12/30/21 @ 09:04 by Osorio Gama MD) CKD (chronic kidney disease) CVA (cerebral vascular accident) left hemiparesis Depression Diabetes mellitus, type II a1c 10/2020 12.7 Dyslipidemia Feeling grief Headache History of seizure on topamax Hypertension hypertensive emergency 10/2020 Macular degeneration Neurogenic bladder previous suprapubic catheter, history of intermittent self catheterization. Obesity Obstructive pyelonephritis Recurrent UTI Requires assistance with activities of daily living (ADL) Ulcer of sacral region, stage 1 x 2, one on each buttock UTI (urinary tract infection) Surgical History H/O detached retina repair H/O oral surgery History of suprapubic catheter came out in 2019, not replaced S/P appendectomy S/P cataract surgery S/P cholecystectomy S/P knee surgery S/P shoulder surgery Family History Father Cancer Lymphoma Mother CAD (coronary artery disease) Diabetes Chronic kidney disease (CKD) Social History Alcohol intake: never Caregiver/support person: No Lives independently: No Marital status: Marital status details: 12/17/20 Current occupational status: disabled Data Anesthesia : 12/30/21 02:40 12/30/21 02:40 Short CBC 12/29/21 12/30/21 Range/Units 16:18 02:40 WBC 17.3 H 15.0 H (4.0-10.0) 10^3/uL Hgb 14.2 13.3 (11.5-15.3) g/dL Hct 46.1 43.6 (37.0-47.0) % MCV 89.0 90.8 (81-99) fl Plt Count 469 H 421 H (130-400) 10^3/cmm Neut % (Auto) 83.1 78.5 % Neut # (Auto) 14.43 H 11.77 H (1.8-7.7) 10^3/uL BMP 12/29/21 12/30/21 16:18 02:40 Sodium 136 143 Potassium 4.1 4.0 Chloride 105 109 H Carbon Dioxide 17 L 17 L BUN 46 H 53 H Creatinine 3.6 H 3.5 H Glucose 142 H 136 H Calcium 9.2 9.3 Cardiac Enzymes 12/29/21 12/29/21 Range/Units 16:18 16:18 Creatine Kinase 47 (26-192) U/L NT-Pro-B Natriuret Pep 1261 H (0-125) pg/mL Liver Function 12/29/21 12/30/21 Range/Units 16:18 02:40 Total Bilirubin 0.2 0.3 (0.15-1.2) mg/dL AST 7 9 (0-32) U/L ALT < 5 < 5 (0-33) U/L Alkaline Phosphatase 45 46 (35-105) IU/L Albumin 3.4 L 3.3 L (3.5-5.2) g/dL Urine 02/25/22 Range/Units 16:54 Urine Color Yellow (Yellow) Urine Appearance Cloudy (CLEAR) Urine pH 5 (5-7) Ur Specific [place] 1.025 (1.005-1.030) Urine Protein 1+ H (Negative) Urine Glucose (UA) Norm (Normal) Urine Ketones 1+ H (Negative) Urine Nitrate Negative (Negative) Urine Bilirubin Neg (Negative) Ur Leukocyte Esterase 2+ H (Negative) Urine RBC Too numerous to cnt H (0-2) /hpf Urine WBC Too numerous to cnt H (0-5) /hpf COVID Results 12/29/21 19:26 Coronavirus 229E (PCR) Not detected SARS-CoV-2 (PCR) Not detected Coags 12/30/21 02:40 C-Reactive Protein 50.8 H ABG 12/29/21 16:42 Specimen Type Arterial Sample Site Brachial, left ABG pH 7.31 L ABG pCO2 33.6 L ABG pO2 68.7 L ABG HCO3 17.1 L ABG O2 Saturation 91.3 ABG Base Excess -8.2 L A-a O2 Gradient 5.4 O2 Delivery Device Room air FiO2 21.0 Microbiology 12/29/21 19:53 Blood Culture - Preliminary Blood SPECIMEN COLLECTED 12/29/21 19:02 Blood Culture - Preliminary Blood SPECIMEN COLLECTED Cardiac Studies: Cardiac Event Monitor 10/05/21
--- NOTE | 2021-12-30 10:27 | SC_ITS ---
WS: [id number] C-ARM RADIOGRAPHS ABDOMEN; 2 IMAGES HISTORY: RT. SIDE STENT PLACEMENT COMPARISON: CT 12/29/2021 Intraoperative positioning of a RIGHT double pigtail ureteral stent. Only the proximal stent is visua lized. No definite calcifications noted along the stent. SC/C-arm FL for Urology IMPRESSION: Intraoperative imaging during RIGHT ureteral stent placement.
--- NOTE | 2021-12-30 10:33 | PC.CHAP ---
Pastoral Care Encounter/Spiritual Assessment Type of Contact [] Declined radiocommunications technician visit [] Patient/Family/Request visit [] Outpatient visit [] Follow-up visit [] Physician referral [] Code/Alert [X] Routine visit [] Staff referral [] Actively dying [] Patient sleeping [] Family support [] [X] Out of room [] Palliative care [] [] Receiving care in room [] Pre-surgical visit [] Trauma [] Long length of stay [] ICU visit [X] Other: in surgery at present Relational/Emotional Strength [] Patient feels connected with others/family/visitors/staff [] Distress [] Loneliness/isolation [] Abandonment Spirituality of Patient [] Person of Micki [] Attends Protestant of their Micki [] Believes in Prayer [] Reads Bible or Yazdanism materials [] There are Spiritual issues to be addressed Public Utilities Sales Representative Interventions [] Prayer [] Active listening [] Non-anxious presence [] Spiritual/emotional support [] Crisis/trauma care [] Spiritual counseling [] Bereavement support [] Provided bereavement packet [] Provided Bible/devotional materials [] Provided toy/stuffed animal, coloring book to patient or family member [] Provided Communion [] Anointing/[place] [] Salvation [] Completed spiritual assessment [] Other: Impact on Illness or Injury [] Angry [] Fearful [] Anxious [] Often cries [] Exhaustion [] Unable to work [] Unable to attend restorationism [] Unable to walk/stand [] Unable to read [] Unable to drive [] Unable to eat/drink [] Unable to sleep [] Unable to be with family [] Patient intubated [] Other: Summary Time spent with patient
--- NOTE | 2021-12-30 10:43 | PC.NURSE ---
Patient back to floor from surgery. Report was received from PACU nurse. VS are stable. Student nurse and Preceptor, Amaya CUNNINGHAM will continue to monitor.
--- NOTE | 2021-12-30 11:06 | P.PN_ITS ---
Subjective Subjective: This morning after reviewing CT abdomen pelvis I did call Dr. Gama who recommended ureteral stent Patient is still able to answer a few simple questions Afebrile No worsening of leukocytosis, white count is 15,000 down from 17K Creatinine 3.5 down from 3.6, hemodynamically stable, Vitals/I&O/Wt Last Vital Signs Temp 98.0 F 12/30/21 10:31 Pulse 71 12/30/21 10:31 Resp 16 12/30/21 10:31 BP 122/73 12/30/21 10:31 Pulse Ox 98 12/30/21 10:31 12/29/21 12/30/21 12/30/21 22:59 06:59 14:59 Intake Total 250 / 250 410 / 660 200 / 200 Output Total 0 / 0 Balance 250 / 250 410 / 660 200 / 200 Weight last 48 hrs Weight 136.078 kg Weight 136.078 kg Physical Exam Narrative: Patient is very fatigued lethargic Able to answer simple questions Following command Signs of dehydration evident Abdomen soft nontender No groin ulcer however she has a deep medial upper thigh wound which is packed with the dressing, foul-smelling no active drainage, seems to be showing good signs of healing No signs of edema of legs Bilateral breath sounds without adventitious sounds this morning patient was put on 2 L nasal cannula Nonfocal neuro exam Pupils are still nonreactive to light Data : 12/30/21 02:40 12/30/21 02:40 Micro: Microbiology 12/29/21 19:53 Blood Culture - Preliminary Blood SPECIMEN COLLECTED 12/29/21 19:02 Blood Culture - Preliminary Blood SPECIMEN COLLECTED A&P Assessment and plan (1) Obstructive pyelonephritis: Status: Acute (2) Dehydration: Status: Acute (3) Groin ulcer: Status: Acute (4) TIA (transient ischemic attack): Status: Acute (5) Diabetes mellitus: Status: Acute (6) Hypertension: Status: Acute (7) Left pontine stroke: Status: Acute (8) Neurogenic bladder: Status: Acute Plan Obstructive pyelonephritis No signs of sepsis Blood cultures showing no growth Afebrile Leukocytosis trending down Continue Zosyn Continue IV fluids TIA versus CVA: Less likely considering the fact we have found source of encephalopathy which is metabolic encephalopathy related to pyelonephritis Acute on chronic kidney injury Patient has history of suprapubic catheter due to neurogenic bladder Obstructive pyelonephritis Creatinine improving with IV fluid hydration anticipating improvement further after ureteral stent placement We will follow up with the culture report for the sample to be sent from the OR Dehydration: Continue IV fluids Thoracic area skin sloughing, grade 1 buttocks ulcer, deep wound of right proximal upper thigh Nursing care, nurse was notified to use Dakin's dressing wet-to-dry patient does not have any active signs of drainage does show signs of healing with granulation tissue Start her diet on clear liquid after procedure DVT prophylaxis Heparin to be restarted after the procedure Full code Continue decreased dose of insulin and metoprolol Attestations Medical Necessity Statement*: Continue hospitalization Time Spent in Patient Care: 25mins Coding Level of Care Code Acute Sculpture Conservator for [facility] Fwd Diagnoses Obstructive pyelonephritis N11.1 Dehydration E86.0 Groin ulcer L98.499 TIA (transient ischemic attack) G45.9 Diabetes mellitus E11.9 Hypertension I10 Left pontine stroke I63.9 Neurogenic bladder N31.9
[2021-12-30] MEDS: sodium chloride 0.9% 1,000 ML 75 ML IV (11:41)
[2021-12-30] MEDS: piperacillin-tazobactam 3.375 GM in sodium chloride 0.9% (plus) 50 ML IV ×2 (11:41→23:02)
--- NOTE | 2021-12-30 13:56 | PC.NURSE ---
spoke with Dr. Gama with concerns of patients urine remaining dark blood in appearance several hours after procedure instructions to manually irrigate to insure proper functioning of catheter aslo speak with medical provider about holding anticoagulation spoke with Dr Silva about anticoagulation therapy hold all anticoagulation therapy this day and he will assess in the am for continuation
--- NOTE | 2021-12-30 14:44 | PC.NURSE ---
spoke with Dr. Silva about concerns of giving patient anything PO due to mentation and CVA History instructions received to have speech eval and treat
[2021-12-30] MEDS: metoprolol succinate ER (24 HR) 100 mg Tablet PO (14:52)
[2021-12-30] MEDS: topiramate 100 mg Tablet PO (14:52)
[2021-12-30 17:14] LABS: Glucose Point of Care 171 mg/dL (70-110)
[2021-12-30 18:40] LABS: Glucose Point of Care 128 mg/dL (70-110)
[2021-12-30] MEDS: insulin lispro 100 unit/1 mL SUBCUT (19:01)
--- NOTE | 2021-12-30 19:14 | PC.NURSE ---
This RN agrees with all charting and medication administration preformed by cutting and boning supervisor Leydi Saab
[2021-12-30] MEDS: insulin glargine 100 units/1 mL 15 UNIT SUBCUT (20:14)
[2021-12-30 20:18] LABS: Glucose Point of Care 214 mg/dL (70-110)
[2021-12-31] VITALS (8 sets, daily range): BP systolic 126–155; BP diastolic 68–79; PULSE 68–88; RESP 16–24; TEMP 36.1–36.8; O2SAT 93–97
[2021-12-31] MEDS: sodium chloride 0.9% 1,000 ML 75 ML IV ×2 (01:41→23:11)
[2021-12-31 05:57] LABS: Basophils # 0.1 10^3/uL (0.0-0.1); Basophils % 0.7 %; Hematocrit 37.2 % (37.0-47.0); Hemoglobin 11.1 g/dL (11.5-15.3); Lymphocytes # 1.4 10^3/uL (0.8-4.8); Lymphocytes % 13.1 %; Mean Corpuscular HGB Conc 29.8 g/dL (30.0-36.0); Mean Corpuscular Volume 93.7 fl (81-99); Mean Platelet Volume 9.8 fL (7.4-10.4); Monocytes # 0.5 10^3/uL (0.2-0.9); Neutrophils # 8.59 10^3/uL (1.8-7.7); Neutrophils % 80.3 %; Nucleated Red Blood Cells % 0 %; Platelet Count 395 10^3/cmm (130-400); Red Blood Count 3.97 10^6/uL (4.1-5.3); Red Cell Distribution Width 13.3 % (12.1-15.1); White Blood Count 10.7 10^3/uL (4.0-10.0)
[2021-12-31 06:25] LABS: Blood Urea Nitrogen 58 mg/dL (6-20); Calcium 8.9 mg/dL (8.5-10.5); Carbon Dioxide 17 mmol/L (22-29); Chloride 112 mmol/L (98-107); Glomerular Filtration Rate 15.5 mL/min (90-130); Glucose 158 mg/dL (65-115); Osmolality Calculated 315 mOsm/kg (285-295); Sodium 143 mmol/L (136-145)
[2021-12-31 06:31] LABS: Glucose Point of Care 154 mg/dL (70-110)
[2021-12-31] MEDS: aspirin 81 mg EC Tablet PO (08:07)
[2021-12-31] MEDS: insulin lispro 100 unit/1 mL SUBCUT ×3 (08:07→17:55)
[2021-12-31] MEDS: clopidogrel 75 mg Tablet PO (08:07)
--- NOTE | 2021-12-31 08:26 | PC.NURSE ---
Manually irrigated catheter with 100ml sterile water. No clots on return. Urine is a pale yellow color with light tinge of pink. Nurse will continue to irrigate per physician orders Q2-3h
--- NOTE | 2021-12-31 08:51 | P.PN_ITS ---
Subjective Subjective: Creatinine leukocytosis improving Patient makes eye contact, answers to simple questions Oriented to herself Not able to conversation Afebrile Poor p.o. intake Vitals/I&O/Wt Last Vital Signs Temp 98.2 F 12/31/21 04:12 Pulse 88 12/31/21 04:12 Resp 18 12/31/21 04:12 BP 137/79 12/31/21 04:12 Pulse Ox 94 12/31/21 04:12 12/30/21 12/31/21 12/31/21 22:59 06:59 14:59 Intake Total 50 / 1130 1000 / 2130 Balance 50 / 1130 1000 / 2130 Weight last 48 hrs Weight 136.078 kg Weight 136.078 kg Physical Exam Narrative: Patient is only oriented to herself She is laying supine She makes eye contact Answer simple questions I do not appreciate any focal deficits Abdomen is soft nontender Suprapubic catheter draining concentrated urine No signs of edema Right medial thigh deep ulcer without acute exacerbation No active signs cellulitis No active stridor or wheezing This morning she is on 2 L nasal cannula Urinary Catheter Management: Suprapubic: Cath Placed During This Visit: no Reason for Continuing Indwelling Catheter: Chronic Indwelling Urinary Catheter on Admission Data : 12/31/21 04:51 12/31/21 04:51 Micro: Microbiology 12/29/21 19:53 Blood Culture - Preliminary Blood NEGATIVE TO DATE 12/29/21 19:02 Blood Culture - Preliminary Blood NEGATIVE TO DATE A&P Assessment and plan (1) Cystitis: Status: Acute (2) Obstructive pyelonephritis: Status: Acute (3) Acute kidney injury superimposed on chronic kidney disease: Status: Acute (4) Dehydration: Status: Acute (5) EFREN (acute kidney injury): Status: Acute (6) Groin ulcer: Status: Acute (7) TIA (transient ischemic attack): Status: Acute (8) Diabetes mellitus: Status: Acute (9) History of ischemic vertebrobasilar artery thalamic stroke: Status: Acute (10) Left pontine stroke: Status: Acute (11) Neurogenic bladder: Status: Acute (12) Recurrent UTI: Status: Acute Plan Obstructive pyelonephritis Cystitis Recurrent UTI Continue Zosyn Discontinue vancomycin, medial thigh deep ulcer does not look infected, she can take doxycycline for now She is getting taken wet-to-dry dressing on daily basis Status post ureteral stent 12/30 Leukocytosis and creatinine improving Continue IV fluids, patient has poor p.o. intake Appreciate Dr. Gama's recommendation Altered mental status Metabolic encephalopathy Seizure less likely, no signs of meningitis She only received 1 dose of Keppra in the ER then it was discontinued Related to UTI History of multiple CVAs in the past with left-sided weakness Patient has flat affect At this point MRI would not add any additional benefit to the patient, continue aspirin, Plavix and atorvastatin Patient is not septic, no signs of bacteremia, She is on dysphagia diet Prediabetes: On reduced dose of insulin with sliding scale I have also decrease the dose of metoprolol succinate Zosyn is renally dosed Currently on bowel regimen Continue normal saline Continue Topamax We will give a trial of Ritalin today Attestations Medical Necessity Statement*: Planning to discharge her around Saturday or Saturday Time Spent in Patient Care: 30mins Coding Level of Care Code Acute Nursery Attendant for g Fwd Diagnoses Cystitis N30.90 Obstructive pyelonephritis N11.1 Acute kidney injury superimposed on chronic kidney disease N17.9; N18.9 Dehydration E86.0 EFREN (acute kidney injury) N17.9 Groin ulcer L98.499 TIA (transient ischemic attack) G45.9 Diabetes mellitus E11.9 History of ischemic vertebrobasilar artery thalamic stroke Z86.73 Left pontine stroke I63.9 Neurogenic bladder N31.9 Recurrent UTI N39.0
[2021-12-31] MEDS: piperacillin-tazobactam 3.375 GM in sodium chloride 0.9% (plus) 50 ML IV ×2 (10:33→17:57)
--- NOTE | 2021-12-31 10:41 | PC.CHAP ---
Pastoral Care Encounter/Spiritual Assessment Type of Contact [] Declined control clerk food and beverage visit [] Patient/Family/Request visit [] Outpatient visit [X] Follow-up visit [] Physician referral [] Code/Alert [] Routine visit [] Staff referral [] Actively dying [] Patient sleeping [] Family support [] [] Out of room [] Palliative care [] [] Receiving care in room [] Pre-surgical visit [] Trauma [] Long length of stay [] ICU visit [X] Other: pt has neurological deficits from past strokes; unable to converse Relational/Emotional Strength [] Patient feels connected with others/family/visitors/staff [] Distress [] Loneliness/isolation [] Abandonment Spirituality of Patient [] Person of Micki [] Attends Zoroastrianism of their Micki [] Believes in Prayer [] Reads Bible or Orthodox materials [] There are Spiritual issues to be addressed Service Dispatcher Interventions [] Prayer [] Active listening [] Non-anxious presence [] Spiritual/emotional support [] Crisis/trauma care [] Spiritual counseling [] Bereavement support [] Provided bereavement packet [] Provided Bible/devotional materials [] Provided toy/stuffed animal, coloring book to patient or family member [] Provided Communion [] Anointing/[place] [] Salvation [] Completed spiritual assessment [] Other: Impact on Illness or Injury [] Angry [] Fearful [] Anxious [] Often cries [] Exhaustion [] Unable to work [] Unable to attend methodist [] Unable to walk/stand [] Unable to read [] Unable to drive [] Unable to eat/drink [] Unable to sleep [] Unable to be with family [] Patient intubated [] Other: Summary Time spent with patient
--- NOTE | 2021-12-31 11:30 | PC.NURSE ---
Irrigation done at 11:30. Irrigated with 150ml sterile water. Irrigated until clear. Small clots were present on initiation, then cleared up.
[2021-12-31 11:54] LABS: Glucose Point of Care 175 mg/dL (70-110)
[2021-12-31 13:36] LABS: Bacillus cereus group Not Detected (NOT DETECT); Bacillus subtillis group Not Detected (NOT DETECT); Corynebacterium Not Detected (NOT DETECT); Cutibacterium acnes (P.acnes) Not Detected (NOT DETECT); Enterococcus Not Detected (NOT DETECT); Enterococcus faecalis Not Detected (NOT DETECT); Enterococcus faecium Not Detected (NOT DETECT); Lactobacillus species Not Detected (NOT DETECT); Listeria Not Detected (NOT DETECT); Listeria monocytogenes Not Detected (NOT DETECT); Micrococcus Not Detected (NOT DETECT); Pan Candida Not Detected (NOT DETECT); Pan Gram-Negative Not Detected (NOT DETECT); Staphylococcus epidermidis Not Detected (NOT DETECT); Staphylococcus lugdunensis Not Detected (NOT DETECT); Staphylococcus species Not Detected (NOT DETECT); Streptococcus agalactiae Not Detected (NOT DETECT); Streptococcus anginosus group Not Detected (NOT DETECT); Streptococcus pneumoniae Not Detected (NOT DETECT); Streptococcus pyogenes Not Detected (NOT DETECT); Streptococcus species Not Detected (NOT DETECT)
--- NOTE | 2021-12-31 14:35 | PM.PN ---
Subjective Subjective: Urology follow-up: More alert today. Able to answer questions more clearly. States that she is thirsty. Has been having some choking when trying to drink fluids. Denies any flank pain on the right side. Had a lot of hematuria postop but that appears to be clearing. I reviewed with the nursing staff good management techniques of gross hematuria for manual irrigation as needed for clot removal. It appears that that can be stopped now. Nothing suspicious on physical exam. White count has improved, creatinine has decreased slightly. Recommendations: 1. Continue current supportive care with IV fluids and antibiotics. 2. Will make plans for definitive treatment of the stones after recovers from the infection. Vitals/I&O/Wt Last Vital Signs Temp 98.2 F 12/31/21 04:12 Pulse 88 12/31/21 04:12 Resp 18 12/31/21 04:12 BP 137/79 12/31/21 04:12 Pulse Ox 94 12/31/21 04:12 12/30/21 12/31/21 12/31/21 22:59 06:59 14:59 Intake Total 50 / 1130 1000 / 2130 50 / 50 Output Total 250 / 250 Balance 50 / 1130 1000 / 2130 -200 / -200 Weight last 48 hrs Weight 300 lb Weight 300 lb Physical Exam Narrative: Much more alert today. Good eye contact. Answers questions appropriately. She states that she knows where she is. HEENT atraumatic normocephalic Respiratory no audible wheezing. No labored respiration Abdomen is soft. No palpable tenderness. No masses. Suprapubic tube is functioning well. Draining mostly yellow urine with some red sediment. No other changes. Urinary Catheter Management: Suprapubic: Cath Placed During This Visit: no Reason for Continuing Indwelling Catheter: Chronic Indwelling Urinary Catheter on Admission Data : 12/31/21 04:51 12/31/21 04:51 Micro: Microbiology 12/29/21 19:02 Blood Culture - Preliminary Blood Gram positive cherelle 12/29/21 16:54 Urine Culture - Preliminary Urine,Clean Catch Yeast 12/29/21 19:53 Blood Culture - Preliminary Blood NEGATIVE TO DATE A&P Assessment and plan (1) Obstructive pyelonephritis: Improving following stent placement and continued antibiotics Status: Acute (2) Right ureteral calculus: Actually has multiple stones in the right ureter. Moderate to severe hydronephrosis identified on CT scan during work-up for pyelonephritis Stones been bypassed with stent. Will make plans for definitive treatment of the stones following clearance of the infection. Status: Acute (3) Neurogenic bladder: Suprapubic tube chronically. Tube was changed intraoperatively yesterday. Status: Chronic (4) Acute kidney injury superimposed on chronic kidney disease: Secondary to obstructive pyelonephritis Status: Acute (5) Recurrent UTI: History of recurrent UTIs including chronic cystitis type symptoms. Had been maintained on METHENAMINE HIPPURATE plus vitamin C for suppressive technique. 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
--- NOTE | 2021-12-31 14:35 | PC.NURSE ---
Urine is clearing up. May irrigate on an as need bases now, per Dr. Gaam.
[2021-12-31] MEDS: topiramate 100 mg Tablet PO (14:39)
[2021-12-31] MEDS: metoprolol succinate ER (24 HR) 100 mg Tablet PO (14:39)
[2021-12-31] MEDS: methylphenidate 10 mg Tablet PO (14:39)
[2021-12-31 17:48] LABS: Glucose Point of Care 173 mg/dL (70-110)
--- NOTE | 2021-12-31 18:30 | PC.NURSE ---
Catheter irrigated at 1830 due to visible clot in carreon tube and color returning to a darker shade of red.
--- NOTE | 2021-12-31 18:54 | PC.NURSE ---
Shift Note Patient had a decent day today. Patient was more alert and talkative today than previous shift, however, still has a hard time swallowing and has to be reminded to swallow several times or she will hold the substance in her mouth. Patient catheter was manually irrigated Q2-3h today until orders to irrigate PRN. Urine had cleared to a light pink color, closer to end of shift urine is starting to get darker and visible clots were in the tube so manual irrigation with 150ml sterile water was performed again. Frequent safety and comfort rounds continue. Orders and/or nursing care completed as indicated. Will continue to monitor.
[2021-12-31 19:23] LABS: Glucose Point of Care 159 mg/dL (70-110)
[2021-12-31] MEDS: insulin glargine 100 units/1 mL 15 UNIT SUBCUT (20:23)
[2022-01-01] VITALS (9 sets, daily range): BP systolic 149–165; BP diastolic 73–90; PULSE 64–79; RESP 15–21; TEMP 35.9–36.6; O2SAT 92–99
[2022-01-01] MEDS: piperacillin-tazobactam 3.375 GM in sodium chloride 0.9% (plus) 50 ML IV ×3 (01:32→18:46)
[2022-01-01 03:13] LABS: Basophils # 0.1 10^3/uL (0.0-0.1); Basophils % 0.7 %; Eosinophils % 0.4 %; Hematocrit 40.7 % (37.0-47.0); Hemoglobin 12.1 g/dL (11.5-15.3); Lymphocytes # 1.8 10^3/uL (0.8-4.8); Lymphocytes % 22.1 %; Mean Corpuscular HGB Conc 29.7 g/dL (30.0-36.0); Mean Corpuscular Hemoglobin 27.4 pg (28.0-34.0); Mean Corpuscular Volume 92.3 fl (81-99); Mean Platelet Volume 9.5 fL (7.4-10.4); Monocytes # 0.6 10^3/uL (0.2-0.9); Monocytes % 6.9 %; Neutrophils # 5.57 10^3/uL (1.8-7.7); Nucleated Red Blood Cells % 0 %; Platelet Count 369 10^3/cmm (130-400); Red Blood Count 4.41 10^6/uL (4.1-5.3); Red Cell Distribution Width 13.7 % (12.1-15.1); White Blood Count 8.1 10^3/uL (4.0-10.0)
[2022-01-01 03:59] LABS: Anion Gap 18.8 (5-19); Blood Urea Nitrogen 50 mg/dL (6-20); Calcium 9.3 mg/dL (8.5-10.5); Carbon Dioxide 17 mmol/L (22-29); Chloride 118 mmol/L (98-107); Glomerular Filtration Rate 19.9 mL/min (90-130); Glucose 78 mg/dL (65-115); Osmolality Calculated 322 mOsm/kg (285-295); Potassium 3.8 mmol/L (3.5-5.1); Sodium 150 mmol/L (136-145)
[2022-01-01 06:21] LABS: Glucose Point of Care 83 mg/dL (70-110)
[2022-01-01] MEDS: aspirin 81 mg EC Tablet PO (08:34)
[2022-01-01] MEDS: clopidogrel 75 mg Tablet PO (08:34)
--- NOTE | 2022-01-01 09:38 | PC.SOCIAL ---
Pg 2 IMM Explained to pt's sister via phone, Pg 2 IMM. No questions voiced. Provided pt a copy. Initialed, dated, & timed a copy & placed in chart.
[2022-01-01] MEDS: dextrose 5% 1,000 ML 75 ML IV ×2 (09:42→21:25)
[2022-01-01 11:14] LABS: Glucose Point of Care 149 mg/dL (70-110)
--- NOTE | 2022-01-01 11:39 | P.PN_ITS ---
Subjective Subjective: This morning patient stated that she wanted to try ice cream Sodium has worsened Continue D5 Creatinine is improving Afebrile Plan to discharge once creatinine improves Vitals/I&O/Wt Last Vital Signs Temp 96.7 F L 01/01/22 07:11 Pulse 79 01/01/22 11:15 Resp 19 H 01/01/22 11:15 BP 149/73 01/01/22 11:15 Pulse Ox 92 01/01/22 11:15 12/31/21 01/01/22 01/01/22 22:59 06:59 14:59 Intake Total 1000 / 1100 50 / 1150 50 / 50 Output Total 350 / 600 550 / 1150 650 / 650 Balance 650 / 500 -500 / 0 -600 / -600 Physical Exam Narrative: Patient was asking for ice, Able to answer simple questions S1, S2 Clinical looks dehydrated Dry cracked lips Abdomen soft Lower extremity trace edema Root catheter draining dark-colored urine Patient is able to make eye contact today as well, I do not appreciate new focal deficits She denied any pain No audible stridor or wheezing She is doing well on room air, not requiring oxygen anymore Urinary Catheter Management: Suprapubic: Cath Placed During This Visit: no Reason for Continuing Indwelling Catheter: Other Data : 01/01/22 02:38 01/01/22 02:38 Micro: Microbiology 12/29/21 19:02 Blood Culture - Preliminary Blood Corynebacterium species 12/29/21 16:54 Urine Culture - Preliminary Urine,Clean Catch Yeast A&P Assessment and plan (1) Right ureteral calculus: Status: Acute (2) Acute kidney injury superimposed on chronic kidney disease: Status: Acute (3) History of stroke: Status: Acute (4) Cystitis: Status: Acute (5) Obstructive pyelonephritis: Status: Acute (6) EFREN (acute kidney injury): Status: Acute (7) Dehydration: Status: Acute (8) Groin ulcer: Status: Acute Plan Dehydration related hyponatremia because of poor p.o. 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
--- NOTE | 2022-01-01 13:21 | PC.NURSE ---
patient did eat a small portion of ice cream in the freezer. Patient nurse found an uneaten frosty in the freezer.
[2022-01-01] MEDS: metoprolol succinate ER (24 HR) 100 mg Tablet PO (13:38)
[2022-01-01] MEDS: topiramate 100 mg Tablet PO (13:38)
[2022-01-01] MEDS: heparin 5,000 unit/mL INJ 1 mL 5000 UNIT SUBCUT ×2 (13:39→21:26)
[2022-01-01] MEDS: insulin lispro 100 unit/1 mL SUBCUT ×2 (13:39→18:46)
[2022-01-01] MEDS: acetaminophen 325 mg Tablet PO (13:40)
[2022-01-01 16:09] LABS: Glucose Point of Care 184 mg/dL (70-110)
--- NOTE | 2022-01-01 19:11 | P.PN_ITS ---
Subjective Subjective: Urology follow-up Seems more alert again today Denies any increasing right flank pain. No evidence of infectious progression. Reviewed with her again the findings intraoperatively and plans for definitively treating the stone once infection has improved. Potentially as early as next week. Vitals/I&O/Wt Last Vital Signs Temp 96.7 F L 01/01/22 07:11 Pulse 74 01/01/22 15:28 Resp 15 01/01/22 15:28 BP 151/86 01/01/22 15:28 Pulse Ox 93 01/01/22 15:28 01/01/22 01/01/22 01/01/22 06:59 14:59 22:59 Intake Total 50 / 1150 300 / 300 Output Total 550 / 1150 650 / 650 Balance -500 / 0 -350 / -350 Physical Exam Narrative: Much more alert today.? Good eye contact.? Responds appropriately Recognizes me. HEENT atraumatic normocephalic Respiratory no audible wheezing.? No labored respiration Abdomen is soft.? No palpable tenderness.? No masses. Suprapubic tube draining clear urine. Much improved appearance of the urine overall Urinary Catheter Management: Suprapubic: Cath Placed During This Visit: no Reason for Continuing Indwelling Catheter: Other Data : 01/01/22 02:38 01/01/22 02:38 Micro: Microbiology 01/01/22 12:47 Blood Culture - Preliminary Blood SPECIMEN COLLECTED 01/01/22 12:45 Blood Culture - Preliminary Blood SPECIMEN COLLECTED 12/29/21 19:02 Blood Culture - Preliminary Blood Corynebacterium species A&P Assessment and plan (1) Obstructive pyelonephritis: Improving following stent placement and continued antibiotics We will plan for difficult maybe as early as next week Status: Acute (2) Right ureteral calculus: Status post emergency stenting for multiple stones obstructing the right ureter. Continues to improve. Status: Acute (3) Neurogenic bladder: Suprapubic tube chronically. Tube was changed intraoperatively yesterday. Status: Chronic (4) Acute kidney injury superimposed on chronic kidney disease: Secondary to obstructive pyelonephritis Creatinine has decreased to 2.5 Status: Acute (5) Recurrent UTI: History of recurrent UTIs including chronic cystitis type symptoms. Had been maintained on METHENAMINE HIPPURATE plus vitamin C for suppressive technique. 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
[2022-01-01 21:14] LABS: Glucose Point of Care 85 mg/dL (70-110)
[2022-01-02] VITALS (8 sets, daily range): BP systolic 146–165; BP diastolic 73–89; PULSE 63–72; RESP 12–16; TEMP 36.3–36.6; O2SAT 92–96
[2022-01-02] MEDS: piperacillin-tazobactam 3.375 GM in sodium chloride 0.9% (plus) 50 ML IV ×3 (01:35→17:18)
[2022-01-02 03:37] LABS: Basophils # 0.1 10^3/uL (0.0-0.1); Basophils % 0.9 %; Eosinophils # 0.1 10^3/uL (0.0-0.8); Eosinophils % 1.1 %; Hematocrit 40.4 % (37.0-47.0); Lymphocytes # 1.7 10^3/uL (0.8-4.8); Lymphocytes % 22.2 %; Mean Corpuscular HGB Conc 29.7 g/dL (30.0-36.0); Mean Corpuscular Hemoglobin 27.6 pg (28.0-34.0); Mean Corpuscular Volume 93.1 fl (81-99); Mean Platelet Volume 9.3 fL (7.4-10.4); Monocytes # 0.7 10^3/uL (0.2-0.9); Monocytes % 9.1 %; Neutrophils # 5.01 10^3/uL (1.8-7.7); Nucleated Red Blood Cells % 0 %; Platelet Count 342 10^3/cmm (130-400); Red Blood Count 4.34 10^6/uL (4.1-5.3); Red Cell Distribution Width 13.5 % (12.1-15.1); White Blood Count 7.6 10^3/uL (4.0-10.0)
[2022-01-02 04:01] LABS: Anion Gap 14.6 (5-19); Blood Urea Nitrogen 37 mg/dL (6-20); Calcium 8.8 mg/dL (8.5-10.5); Carbon Dioxide 19 mmol/L (22-29); Chloride 118 mmol/L (98-107); Glomerular Filtration Rate 27.2 mL/min (90-130); Glucose 115 mg/dL (65-115); Osmolality Calculated 316 mOsm/kg (285-295); Potassium 3.6 mmol/L (3.5-5.1); Sodium 148 mmol/L (136-145)
[2022-01-02] MEDS: heparin 5,000 unit/mL INJ 1 mL 5000 UNIT SUBCUT ×3 (05:17→21:15)
--- NOTE | 2022-01-02 05:47 | PC.NURSE ---
pt rested quietly throughout shift. VSS. suprapubic catheter patent. No complaints of pain. pt turned q2. hourly rounding done. all needs met.
[2022-01-02 06:42] LABS: Glucose Point of Care 126 mg/dL (70-110)
[2022-01-02] MEDS: aspirin 81 mg EC Tablet PO (09:07)
[2022-01-02] MEDS: clopidogrel 75 mg Tablet PO (09:07)
--- NOTE | 2022-01-02 09:16 | PC.NURSE ---
Ate oat meal and ice cream for breakfast
[2022-01-02] MEDS: dextrose 5% 1,000 ML 75 ML IV (10:20)
--- NOTE | 2022-01-02 10:51 | PM.PN ---
Subjective Subjective: This morning patient is stating that she is not in any pain, she would like to go back to [facility]term, asking for ice cream, sodium 148, plan to discharge her back to [facility] [place] tomorrow once sodium 145, continue D5 at 30 cc/h Adequate urine output, creatinine improving Afebrile Vitals/I&O/Wt Last Vital Signs Temp 97.4 F L 01/02/22 04:00 Pulse 66 01/02/22 08:32 Resp 16 01/02/22 08:32 BP 156/89 01/02/22 07:04 Pulse Ox 96 01/02/22 08:32 01/01/22 01/02/22 01/02/22 22:59 06:59 14:59 Intake Total 878.75 / 1178.75 100 / 1278.75 1306.75 / 1306.75 Output Total 950 / 1600 Balance 878.75 / 528.75 -850 / -321.25 1306.75 / 1306.75 Physical Exam Narrative: Patient is oriented to herself Asking for ice cream Saturating well on room air Does not seem to be in any distress No signs of edema Root catheter draining dilute urine Abdomen soft S1, S2 Nonlabored breathing Urinary Catheter Management: Suprapubic: Cath Placed During This Visit: no Reason for Continuing Indwelling Catheter: Not indwelling catheter Data : 01/02/22 03:21 01/02/22 03:21 Micro: Microbiology 01/01/22 12:47 Blood Culture - Preliminary Blood SPECIMEN COLLECTED 01/01/22 12:45 Blood Culture - Preliminary Blood SPECIMEN COLLECTED 12/29/21 19:02 Blood Culture - Preliminary Blood Corynebacterium species A&P Assessment and plan (1) Right ureteral calculus: Status: Acute (2) Acute kidney injury superimposed on chronic kidney disease: Status: Acute (3) History of stroke: Status: Acute (4) Cystitis: Status: Acute (5) Requires assistance with activities of daily living (ADL): Status: Acute (6) Obstructive pyelonephritis: Status: Acute (7) EFREN (acute kidney injury): Status: Acute (8) Dehydration: Status: Acute (9) Groin ulcer: Status: Acute (10) Hypernatremia: Status: Acute Plan Dehydration causing hypernatremia Continue D5 at 30 cc/h Nurse was notified to provide her ice cream this morning Needs assisted feed Obstructive pyonephritis: Relieved, creatinine improved to 1.9, No signs of bacteremia Leukocytosis improved Afebrile Blood cultures are contamination And plan to discharge her by tomorrow Encephalopathy: No evidence of seizure or TIA this was most likely related to metabolic encephalopathy which is slowly improving Medial thigh deep ulcer no active signs of cellulitis, would recommend continuing doxycycline and outpatient wound care follow-up Full code Dysphagia diet Attestations Medical Necessity Statement*: Discharge tomorrow Time Spent in Patient Care: 15min Coding Level of Care Code Acute Resident Physician In Radiology for Chg Fwd Diagnoses Right ureteral calculus N20.1 Acute kidney injury superimposed on chronic kidney disease N17.9; N18.9 History of stroke Z86.73 Cystitis N30.90 Requires assistance with activities of daily living (ADL) Z74.1 Obstructive pyelonephritis N11.1 EFREN (acute kidney injury) N17.9 Dehydration E86.0 Groin ulcer L98.499 Hypernatremia E87.0
[2022-01-02 11:01] LABS: Glucose Point of Care 176 mg/dL (70-110)
[2022-01-02] MEDS: dextrose 5% 1,000 ML 30 ML IV (12:37)
[2022-01-02] MEDS: insulin lispro 100 unit/1 mL SUBCUT (12:40)
[2022-01-02] MEDS: topiramate 100 mg Tablet PO (14:58)
[2022-01-02] MEDS: metoprolol succinate ER (24 HR) 100 mg Tablet PO (14:58)
[2022-01-02 17:16] LABS: Glucose Point of Care 136 mg/dL (70-110)
[2022-01-02] MEDS: insulin glargine 100 units/1 mL 15 UNIT SUBCUT (21:23)
[2022-01-02 23:15] LABS: Glucose Point of Care 128 mg/dL (70-110)
[2022-01-03] VITALS (9 sets, daily range): BP systolic 139–186; BP diastolic 67–100; PULSE 65–80; RESP 12–23; TEMP 36.2–36.6; O2SAT 92–98
[2022-01-03] MEDS: piperacillin-tazobactam 3.375 GM in sodium chloride 0.9% (plus) 50 ML IV ×3 (01:56→18:44)
[2022-01-03] MEDS: heparin 5,000 unit/mL INJ 1 mL 5000 UNIT SUBCUT ×3 (04:48→20:44)
--- NOTE | 2022-01-03 05:33 | PC.NURSE ---
pr rested quietly throughout shift. VSS. no complaints of pain. suprapubic catheter patent. adequate UOP. turned q2. hourly rounding done. all needs met.
[2022-01-03 06:09] LABS: Glucose Point of Care 104 mg/dL (70-110)
[2022-01-03 07:02] LABS: Anion Gap 17.6 (5-19); Blood Urea Nitrogen 29 mg/dL (6-20); Calcium 8.5 mg/dL (8.5-10.5); Carbon Dioxide 18 mmol/L (22-29); Chloride 112 mmol/L (98-107); Glomerular Filtration Rate 33.2 mL/min (90-130); Glucose 116 mg/dL (65-115); Osmolality Calculated 305 mOsm/kg (285-295); Potassium 3.6 mmol/L (3.5-5.1); Sodium 144 mmol/L (136-145)
--- NOTE | 2022-01-03 08:36 | P.DS_ITS ---
Discharge Providers Date of Admission: 12/29/21 18:12 Date of Discharge: January 03, 2022 Attending Provider at Admission: Hillary Silva MD Attending Provider at Discharge: Hillary Silva MD Primary Care Provider: Vu Neil Jr, MD Diagnoses at Discharge Discharge Diagnosis (1) Right ureteral calculus: Status: Acute (2) Acute kidney injury superimposed on chronic kidney disease: Status: Acute (3) History of stroke: Status: Acute (4) Cystitis: Status: Acute (5) Requires assistance with activities of daily living (ADL): Status: Acute (6) Obstructive pyelonephritis: Status: Acute (7) EFREN (acute kidney injury): Status: Acute (8) Dehydration: Status: Acute (9) Groin ulcer: Status: Acute (10) Hypernatremia: Status: Acute Reason for Visit Reason for Visit: INFECTED WOUND Hospital Course Hospital Course This 56-year-old female who presented from [facility] for change in her mental status from baseline, nursing staff noticed tongue bite and bleeding which was also evident at the time of admission in the ER, initially I gave her Keppra for possible breakthrough seizure however her work-up came back positive for obstructive pyelonephritis and metabolic encephalopathy related to UTI and pyelonephritis. Dr. Gama was consulted next day who put a rt ureteral stent. Her creatinine improved significantly, creatinine at the time of admission 3.6, creatinine at the time of discharge 1.6. Adequate urine output from suprapubic catheter, she became dehydrated which resulted in free water deficit and hypernatremia. She was kept on D5 IV fluid at lower rate which improved her free water deficit. Sodium at the time of discharge 144. She still needs a lot of motivation and verbal redirection for her feeding. She loves ice cream. Her blood culture positive with corynebacterium which most likely is a contamination. Urine culture positive for Carmina albicans which could be in normal [place] colonizing her suprapubic catheter however with recent stone I would go ahead and rx her with fluconazole for now. For obstructive pyelonephritis we will give her 10-day regimen of Augmentin, Previous urine culture positive for Proteus which was sensitive to Augmentin For recurrent TIA/CVA would recommend dual antiplatelet therapy Physical Exam Narrative: Patient answer simple questions Asked for ice cream every day Grossly abnormal left shoulder, will request shoulder x-rays Abdomen is soft Looks dehydrated Left-sided hemiparesis No signs of edema of legs Suprapubic catheter draining yellow-colored urine Urinary Catheter Management: Suprapubic: Cath Placed During This Visit: no Reason for Continuing Indwelling Catheter: Chronic Indwelling Urinary Catheter on Admission Discharge Data Studies Completed and Pending Completed Studies During Hospitalization Category Date Time Status CT chest abdomen pelvis [CT chest abd pel wo con] Cat Scan 12/29/21 19:[address] head wo con* [id number] Stat Cat Scan 12/29/21 16:11 Completed XR chest 1V portable [id number] Stat Exams 12/29/21 16:11 Completed Pending at discharge Category Date Time Status Blood Culture Stat Lab 12/29/21 19:02 Results Blood Culture Stat Lab 01/01/22 12:47 Results Radiology Impressions Chest X-Ray 12/29/21 16:11 IMPRESSION: Bilateral hilar to lower lobe atelectasis versus minimal infiltrate. Head CT 12/29/21 16:11 IMPRESSION: Negative for intracranial hemorrhage or mass effect Chest/Abdomen/Pelvis CT 12/29/21 19:11 IMPRESSION: 1. Mild bilateral posterior dependent atelectasis. 2. Atherosclerotic vascular disease including coronary artery disease. IMPRESSION: 1. Numerous small calculi measuring up to 5 mm within the mid and distal right ureter with severe right hydronephrosis. 2. Nonspecific bilateral perinephric fat stranding right greater than left. Pyelonephritis/UTI should be considered. 3. Suprapubic Root catheter in place within a nondistended decompressed urinary bladder. 4. Previous cholecystectomy. 5. Colonic diverticulosis without CT evidence of diverticulitis. 6. Large amount of inspissated stool within the rectum suggestive of constipation. 7. Atherosclerotic vascular disease. C-Arm Fluoroscopy 12/30/21 10:27 IMPRESSION: Intraoperative imaging during RIGHT ureteral stent placement. Laboratory Results WBC 7.6 10^3/uL (4.0-10.0) 01/02/22 03:21 RBC 4.34 10^6/uL (4.1-5.3) 01/02/22 03:21 Hgb 12.0 g/dL (11.5-15.3) 01/02/22 03:21 Hct 40.4 % (37.0-47.0) 01/02/22 03: MCV 93.1 fl (81-99) 01/02/22 03:21 MCH 27.6 pg (28.0-34.0) L 01/02/22 03:21 MCHC 29.7 g/dL (30.0-36.0) L 01/02/22 03:21 RDW 13.5 % (12.1-15.1) 01/02/22 03:21 Plt Count 342 10^3/cmm (130-400) 01/02/22 03:21 MPV 9.3 fL (7.4-10.4) 01/02/22 03:21 Neut % (Auto) 66.0 % 01/02/22 03: Lymph % (Auto) 22.2 % 01/02/22 03:21 O'Brien % (Auto) 9.1 % 01/02/22 03:21 Eos % (Auto) 1.1 % 01/02/22 03: Baso % (Auto) 0.9 % 01/02/22 03: Neut # (Auto) 5.01 10^3/uL (1.8-7.7) 01/02/22 03:21 Lymph # (Auto) 1.7 10^3/uL (0.8-4.8) 01/02/22 03:21 O'Brien # (Auto) 0.7 10^3/uL (0.2-0.9) 01/02/22 03:21 Eos # (Auto) 0.1 10^3/uL (0.0-0.8) 01/02/22 03:21 Baso # (Auto) 0.1 10^3/uL (0.0-0.1) 01/02/22 03:21 Nucleated RBC % (auto) 0 % 01/02/22 03: Nucleated RBCs # 0.0 /100WBC 01/02/22 03:21 Specimen Type Arterial 12/29/21 16:42 Sample Site Brachial, left 12/29/21 16:42 ABG pH 7.31 (7.35-7.45) L 12/29/21 16:42 ABG pCO2 33.6 mmHg (35-45) L 12/29/21 16:42 ABG pO2 68.7 mmHg (80.0-100.0) L 12/29/21 16:42 ABG HCO3 17.1 mmol/L (22-26) L 12/29/21 16:42 ABG O2 Saturation 91.3 12/29/21 16:42 ABG Base Excess -8.2 mmol/L (-2.0-2.0) L 12/29/21 16:42 Mathieu Test N/a 12/29/21 16:42 A-a O2 Gradient 5.4 mmHg (5-10) 12/29/21 16:42 Hematocrit 40.9 % (37-47) 12/29/21 16:42 Hgb O2 Saturation 90.4 % (95-100) L 12/29/21 16:42 Carboxyhemoglobin 0.0 %THgb (0.4-20.1) L 12/29/21 16:42 Methemoglobin 1.0 % (0.4-1.5) 12/29/21 16:42 Total Hemoglobin 13.4 g/dL (12-16) 12/29/21 16:42 Sodium 144.0 mmol/L (131-143) H 12/29/21 16:42 Potassium 3.8 mmol/L (3.5-5.0) 12/29/21 16:42 Glucose 137.0 mg/dL (70-115) H 12/29/21 16:42 Ionized Calcium 1.2 mmol/L (1.1-1.4) 12/29/21 16:42 O2 Delivery Device Room air 12/29/21 16:42 FiO2 21.0 % 12/29/21 16:42 Housekeeping Lead ID Ed 12/29/21 16:42 Sodium 144 mmol/L (136-145) 01/03/22 06:28 Potassium 3.6 mmol/L (3.5-5.1) 01/03/22 06:28 Chloride 112 mmol/L (98-107) H 01/03/22 06:28 Carbon Dioxide 18 mmol/L (22-29) L 01/03/22 06:28 Anion Gap 17.6 (5-19) 01/03/22 06:28 BUN 29 mg/dL (6-20) H 01/03/22 06:28 Creatinine 1.6 mg/dL (0.5-0.9) H 01/03/22 06:28 GFR Calculation 33.2 mL/min (90-130) L 01/03/22 06:28 Glucose 116 mg/dL (65-115) H 01/03/22 06:28 POC Glucose 104 mg/dL (70-110) 01/03/22 06:06 Calculated Osmolality 305 mOsm/kg (285-295) H 01/03/22 06:28 Lactic Acid 0.8 mmol/L (0.5-2.2) 12/29/21 16:18 Calcium 8.5 mg/dL (8.5-10.5) 01/03/22 06:28 Magnesium 1.9 mg/dL (1.7-2.3) 12/30/21 02:40 Total Bilirubin 0.3 mg/dL (0.15-1.2) 12/30/21 02:40 AST 9 U/L (0-32) 12/30/21 02:40 ALT < 5 U/L (0-33) 12/30/21 02:40 Alkaline Phosphatase 46 IU/L (35-105) 12/30/21 02:40 Creatine Kinase 47 U/L (26-192) 12/29/21 16:18 C-Reactive Protein 50.8 mg/L (0.0-4.9) H 12/30/21 02:40 NT-Pro-B Natriuret Pep 1261 pg/mL (0-125) H 12/29/21 16:18 Total Protein 7.0 g/dL (6.6-8.7) 12/30/21 02:40 Albumin 3.3 g/dL (3.5-5.2) L 12/30/21 02:40 Globulin 3.7 g/dL (1.3-4.6) 12/30/21 02:40 Lipase 9 U/L (13-60) L 12/29/21 16:18 Procalcitonin 0.30 ng/mL (0-0.5) 01/01/22 02:38 Prolactin 21.78 ng/mL (4.8-23.3) 12/29/21 16:18 Urine Color Yellow (Yellow) 12/29/21 16:54 Urine Appearance Cloudy (CLEAR) 12/29/21 16:54 Urine pH 5 (5-7) 12/29/21 16:54 Ur Specific [place] 1.025 (1.005-1.030) 12/29/21 16:54 Urine Protein 1+ (Negative) H 12/29/21 16:54 Urine Glucose (UA) Norm (Normal) 12/29/21 16:54 Urine Ketones 1+ (Negative) H 12/29/21 16:54 Urine Blood 3+ (Negative) H 12/29/21 16:54 Urine Nitrate Negative (Negative) 12/29/21 16:54 Urine Bilirubin Neg (Negative) 12/29/21 16:54 Urine Urobilinogen Neg mg/dL (Negative) 12/29/21 16:54 Ur Leukocyte Esterase 2+ (Negative) H 12/29/21 16:54 Urine RBC Too numerous to cnt /hpf (0-2) H 12/29/21 16:54 Urine WBC Too numerous to cnt /hpf (0-5) H 12/29/21 16:54 Ur Squamous Epith Cells Rare /hpf (0-5) 12/29/21 16:54 Amorphous Sediment Not Reportable 12/29/21 16:54 Urine Bacteria 2+ /hpf (NONE) H 12/29/21 16:54 Coronavirus 229E (PCR) Not detected (NOT DETECT) 12/29/21 19:26 SARS-CoV-2 (PCR) Not detected (NOT DETECT) 12/29/21 19:26 Vitals Last Vital Signs Temp 97.1 F L 01/03/22 03:03 Pulse 67 01/03/22 07:40 Resp 18 01/03/22 07:40 BP 162/78 01/03/22 03:03 Pulse Ox 95 01/03/22 07:40 Discharge Plan Discharge Patient Disposition: Xfer SNF Condition: Stable Prescriptions: New aspirin 81 mg Tablet,Delayed Release (Dr/Ec) 81 mg PO DAILY Qty: 30 0RF fluconazole 100 mg tablet 100 mg PO DAILY Qty: 10 0RF amoxicillin-pot clavulanate [Augmentin] 875-125 mg tablet 1 tab PO BID Qty: 20 0RF Continued Januvia 50 mg tablet 50 mg PO DAILY 0RF methenamine hippurate 1 gram tablet 1 g PO BID 0RF ascorbic acid (vitamin C) 1,000 mg tablet 1,000 mg PO BID 0RF escitalopram oxalate 20 mg tablet 20 mg PO DAILY@1400 0RF pravastatin 20 mg tablet 80 mg PO DAILY@1400 0RF solifenacin [Vesicare] 5 mg tablet 5 mg PO DAILY@1400 0RF topiramate [Topamax] 100 mg tablet 100 mg PO DAILY@1400 0RF Rx Instructions: see pharmacy comments bisacodyl 10 mg suppository 10 mg ME DAILY PRN (Reason: Constipation) 0RF acetaminophen [Tylenol] 325 mg capsule 325 mg PO QID PRN (Reason: Pain) 0RF Lantus Solostar U-100 Insulin 100 unit/mL (3 mL) insulin pen 22 unit SUBCUT .pm 0RF hydrocodone-acetaminophen 5-325 mg tablet 1 tab PO Q6H PRN (Reason: Pain) 0RF cyclobenzaprine 10 mg tablet 10 mg PO TID PRN (Reason: muscle spasms) 0RF (DME) blood-glucose meter [Accu-Chek Gaby Plus Meter] Misc See Rx Instructions .ROUTE .MEDSUPPLY Qty: 1 0RF Rx Instructions: As directed (DME) Accu-Chek Gaby Plus test strp Strip See Rx Instructions .ROUTE .MEDSUPPLY Qty: 10 0RF Rx Instructions: As directed (DME) lancets [Accu-Chek Multiclix Lancet] Misc See Rx Instructions .ROUTE .MEDSUPPLY Qty: 100 0RF Rx Instructions: As directed metoprolol succinate 200 mg tablet extended release 24 hr 200 mg PO DAILY@14 0RF ondansetron HCl [Zofran] 4 mg tablet 4 mg PO Q6H PRN (Reason: nausea and vomiting) Qty: 20 0RF senna 8.6 mg Tablet 8.6 mg PO BID PRN (Reason: Constipation) 0RF tramadol 50 mg Tablet 50 mg PO Q6H PRN (Reason: Pain) 0RF Miralax 17 gram/dose Powder 17 g PO DAILY 0RF doxycycline hyclate 100 mg tablet 100 mg PO BID 0RF amino acids-protein hydrolys 15-101 gram-kcal/30 mL Liquid 1 ea PO BID 0RF Discharge Orders: Discharge Order (Routine); Ordered 01/03/22 Ordered By: Hillary Silva Referrals: Osorio Gama MD [Physician] - 4-7 days Vu Neil Jr, MD [Primary Care Provider] [facility], [Staff Physician] - 7-10 days Discharge Diet: Soft Mechanical Discharge Activity: Use walker/crutches as instructed Discharge Attestations Time Spent in Discharge Care*: less than 30 min Status at Discharge: Cognitive status at discharge: cognitively intact , Behavioral status at discharge: cooperative , Quality Metrics Clinical Quality Measures [ No reported AMI, CVA or VTE this stay] Coding Level of Care Code Acute Chg FW DC note Diagnoses Right ureteral calculus N20.1 Acute kidney injury superimposed on chronic kidney disease N17.9; N18.9 History of stroke Z86.73 Cystitis N30.90 Requires assistance with activities of daily living (ADL) Z74.1 Obstructive pyelonephritis N11.1 EFREN (acute kidney injury) N17.9 Dehydration E86.0 Groin ulcer L98.499 Hypernatremia E87.0
[2022-01-03] MEDS: aspirin 81 mg EC Tablet PO (08:38)
[2022-01-03] MEDS: clopidogrel 75 mg Tablet PO (08:38)
--- NOTE | 2022-01-03 10:21 | PC.SOCIAL ---
IMM Update: pg 2 of IMM updated and reviewed w/ patient. Copy provided and copy in chart updated.
[2022-01-03 10:50] LABS: Glucose Point of Care 147 mg/dL (70-110)
--- NOTE | 2022-01-03 10:54 | P.PN_ITS ---
Subjective Subjective: Urology follow-up: Continues to improve. Much more alert. Responds as well that she can based on her CVA limitations. No significant pain in right upper quadrant or right CVA. Reviewed with her again the findings at diagnosis, intraoperative findings, and plan for definitive treatment of the stone soon. I offered Outpatient Surgery ureteroscopic treatment of the stones on 01/08/2022 and she thought that would work. We will plan admitting through Outpatient Surgery 01/08/2022 for right ureteral stent removal, retrograde, ureteroscopy, laser, possible stent replacement Vitals/I&O/Wt Last Vital Signs Temp 97.1 F L 01/03/22 03:03 Pulse 67 01/03/22 07:40 Resp 18 01/03/22 07:40 BP 162/78 01/03/22 03:03 Pulse Ox 95 01/03/22 07:40 01/02/22 01/03/22 01/03/22 22:59 06:59 14:59 Intake Total 1050 / 2406.75 100 / 2506.75 Output Total 200 / 575 Balance 850 / 1831.75 100 / 1931.75 Physical Exam Narrative: More alert. Does not appear to be in any distress. Seems to understand conversation well. Still difficulty with verbalization Abdomen is soft. No palpable masses. No overt tenderness in the right flank or right upper quadrant. Urinary Catheter Management: Suprapubic: Cath Placed During This Visit: no Reason for Continuing Indwelling Catheter: Chronic Indwelling Urinary Catheter on Admission Data : 01/02/22 03:21 01/03/22 06:28 Micro: Microbiology 12/29/21 16:54 Urine Culture - Final Urine,Clean Catch Carmina albicans 01/01/22 12:47 Blood Culture - Preliminary Blood NEGATIVE TO DATE 01/01/22 12:45 Blood Culture - Preliminary Blood NEGATIVE TO DATE A&P Assessment and plan (1) Obstructive pyelonephritis: Much better clinically and via laboratory assessment. We will tentatively plan for cystoscopy, right ureteral stent removal, ureteroscopic laser lithotripsy, retrograde and stent exchange on 01/08/2022 on outpatient surgery basis Status: Acute (2) Right ureteral calculus: Multiple stones. Plan for ureteroscopic treatment 01/08/2022. Status: Acute (3) Neurogenic bladder: Suprapubic tube chronically. Tube changed intraoperatively on admission Status: Chronic (4) Acute kidney injury superimposed on chronic kidney disease: Secondary to obstructive pyelonephritis Creatinine has decreased to 1.6 today. Status: Acute (5) Recurrent UTI: History of recurrent UTIs including chronic cystitis type symptoms. Had been maintained on METHENAMINE HIPPURATE plus vitamin C for suppressive technique. Status: Chronic Attestations Medical Necessity Statement*: See attending Coding Level of Care Code Acute Body Trimmer Upholsterer for [facility] Fwd Diagnoses Obstructive pyelonephritis N11.1 Right ureteral calculus N20.1 Neurogenic bladder N31.9 Acute kidney injury superimposed on chronic kidney disease N17.9; N18.9 Recurrent UTI N39.0
--- NOTE | 2022-01-03 12:21 | XR_ITS ---
WS: [id number] SHOULDER LEFT TECHNIQUE: 1 views of the left shoulder CLINICAL INFORMATION: Left arm weakness COMPARISON: None. FINDINGS: Osteopenia. Degenerative arthritis AC joint. Normal glenohumeral joint. No acute fractures. Moderate narrowing of the subacromial space with calcific tendinitis. IMPRESSION: Osteopenia. No acute fractures.
[2022-01-03] MEDS: insulin lispro 100 unit/1 mL SUBCUT (13:03)
--- NOTE | 2022-01-03 14:29 | PC.NURSE ---
Noticed patients shoulder had hard knot at shoulder joint notified Dr Ricardo valdez to bedside instructions to order left shoulder xray notified provider of xray results and shoulder appears to be normal at this time
--- NOTE | 2022-01-03 14:59 | PC.NURSE ---
Patient refused to take metoprolol and topamax at this time patient stated something similar to No I don't want to take my medicine ill skip the chocolate ice cream right now This nurse explained to patient what medications was in the ice cream and why she needed them patient continued to refuse
[2022-01-03 17:26] LABS: Glucose Point of Care 106 mg/dL (70-110)
--- NOTE | 2022-01-03 17:47 | PC.NURSE ---
This Rn agrees with all documentation and medication administration by student nurse Leydi Saab
[2022-01-03] MEDS: dextrose 5% 1,000 ML 30 ML IV (18:44)
[2022-01-03 19:08] LABS: SARS Covid-2 Antigen Negative (Negative)
[2022-01-03 20:32] LABS: Glucose Point of Care 119 mg/dL (70-110)
[2022-01-03] MEDS: insulin glargine 100 units/1 mL 15 UNIT SUBCUT (20:44)
[2022-01-04] MEDS: piperacillin-tazobactam 3.375 GM in sodium chloride 0.9% (plus) 50 ML IV ×2 (00:34→10:30)
--- NOTE | 2022-01-04 01:49 | PC.NURSE ---
Frequent dressing changes to right groin and right buttock. Dressings saturated in fluids from wound frequently. Patient also having frequent episodes of incontinence of bowel, which is presenting on the dressings.
[2022-01-04 03:44] VITALS: BP 136/87; PULSE 77; RESP 18; TEMP 36.5; O2SAT 98
[2022-01-04] MEDS: heparin 5,000 unit/mL INJ 1 mL 5000 UNIT SUBCUT (05:46)
[2022-01-04 06:00] VITALS: PULSE 74
[2022-01-04 06:40] LABS: Glucose Point of Care 115 mg/dL (70-110)
[2022-01-04 08:57] VITALS: PULSE 82; RESP 17; O2SAT 96
[2022-01-04] MEDS: aspirin 81 mg EC Tablet PO (09:22)
[2022-01-04] MEDS: clopidogrel 75 mg Tablet PO (09:24)
[2022-01-04 11:44] LABS: Glucose Point of Care 187 mg/dL (70-110)
[2022-01-04] MEDS: insulin lispro 100 unit/1 mL SUBCUT (11:46)
[2022-01-04 15:00] VITALS: PULSE 82; RESP 17; O2SAT 96
--- NOTE | 2022-01-04 15:00 | PC.NURSE ---
Discharge Note Patient discharged to [facility] via ambulance accompanied by ambulance personnel. Discharge instructions reviewed with patient and/or associate sales representative. Mobile pharmacy medications and/or prescriptions provided. Belongings/home medications returned.
== END 2022-01-04 15:00 | disposition skilled nursing facility (03) | DRG 659 ==
LOC: ER 17:04 → ICU 18:26 → CSU 20:42
PROVIDERS: Urology; Admitting Provider Internal Medicine; Emergency Provider Family Medicine; PCP Family Medicine; Visit Provider Internal Medicine
PROC: 0TJB8ZZ Inspection of Bladder, Via Natural or Artificial Opening Endoscopic (ICD-10-PCS; CPT 52000; principal; 2021-12-30 09:30)
PROC: 0T768DZ Dilation of Right Ureter with Intraluminal Device, Via Natural or Artificial Opening Endoscopic (ICD-10-PCS; CPT 50605; 2021-12-30 09:30)
DX: N11.1 Chronic obstructive pyelonephritis (principal); G93.41 Metabolic encephalopathy; T83.518A Infection and inflammatory reaction due to other urinary catheter, initial encounter; B37.41 Candidal cystitis and urethritis; I69.354 Hemiplegia and hemiparesis following cerebral infarction affecting left non-dominant side; Z68.41 Body mass index [BMI] 40.0-44.9, adult; N17.9 Acute kidney failure, unspecified; E87.0 Hyperosmolality and hypernatremia; I69.322 Dysarthria following cerebral infarction; I69.392 Facial weakness following cerebral infarction; E11.22 Type 2 diabetes mellitus with diabetic chronic kidney disease; I12.9 Hypertensive chronic kidney disease with stage 1 through stage 4 chronic kidney disease, or unspecified chronic kidney disease; N18.9 Chronic kidney disease, unspecified; F32.A Depression, unspecified; E78.5 Hyperlipidemia, unspecified; H35.30 Unspecified macular degeneration; Y73.1 Therapeutic (nonsurgical) and rehabilitative gastroenterology and urology devices associated with adverse incidents; E66.9 Obesity, unspecified; Z87.440 Personal history of urinary (tract) infections; L89.322 Pressure ulcer of left buttock, stage 2; L89.312 Pressure ulcer of right buttock, stage 2; L89.899 Pressure ulcer of other site, unspecified stage; E86.0 Dehydration; Z79.891 Long term (current) use of opiate analgesic; Z79.4 Long term (current) use of insulin; R06.89 Other abnormalities of breathing; I95.9 Hypotension, unspecified
CPT/HCPCS: 36415; 36416; 36600; 70450; 71045; 71250; 73020; 74176; 76000; 80048; 80051; 80053; 81001; 82330; 82550; 82805; 82962; 83605; 83690; 83735; 83880; 84145; 84146; 85025; 86140; 87040; 87086; 87106; 87205; 87426; 87635; 92507; 92523; 92526; 92610; 96372; 96374; 99285; C2625; J1100; J1644; J1815 ×2; J1953; J2250; J2405; J2543; J2704; J3010; J3370; J7030; J7050

== ENCOUNTER 2022-01-08 07:20 | Day surgery (SDC) | payer MEDICARE, MEDICAID, SELFPAY ==
[2022-01-08] VITALS (9 sets, daily range): BP systolic 93–165; BP diastolic 67–105; PULSE 83–107; RESP 15–18; TEMP 36.1–36.3; O2SAT 91–97; BMI 33.3
--- NOTE | 2022-01-08 | SCC_ITS ---
Procedure done: Cystoscopy, remove right ureteral stent Right ureteroscopy, ureteral debris basketing, no stent 15.1 seconds of fluoroscopic guidance, for a cumulative dose of 3.79 mGy, was provided to Dr. Gama by the radiology department. C-arm images of the abdomen were saved for the patient's permanent record. [facility]
--- NOTE | 2022-01-08 07:17 | SC_ITS ---
WS: [id number] INTRAOPERATIVE TECHNIQUE: 2 Spot fluoroscopic images for intraoperative purposes. FLUOROSCOPY TIME: 15.1 seconds CLINICAL INFORMATION: Right ureteral calculi COMPARISON: None. FINDINGS: Fluoroscopy used for RIGHT double-J ureteral stent exchange/replacement SC/C-arm FL for Urology IMPRESSION: Images obtained for intraoperative purposes.
--- NOTE | 2022-01-08 07:45 | ANES.PREANE2 ---
Pre-Anesthetic Assessment Height/Weight: Height 1.78 m Weight 105.233 kg Temp Pulse Resp BP Pulse Ox 97.1 F L 107 H 18 136/84 96 01/08/22 07:29 01/08/22 07:29 01/08/22 07:29 01/08/22 07:29 01/08/22 07:29 Preop Diagnosis: Right ureteral calculi. Status post stent for obstructive pyelonephritis Operation Date: 01/08/22 08:20 Proposed Procedures p Cystoscopy 21107/[id number]-m42.1(Not Applicable) - Osorio Gama MD s Laser Lithotripsy(Right) - Osorio Gama MD s Retrograde Pyelogram(Right) - Osorio Gama MD s Ureteroscopy(Right) - Osorio Gama MD s Ureteral Stent Exchange(Right) - Osorio Gama MD Familial anesthetic complications: Denies Was Beta Henry taken within 24 hours: Yes (Last dose 01/07/2022) Last intake: 01/07/2022 Social No alcohol and No tobacco Exam alert, oriented x 3 and regular rate & rhythm Diminished b/l breath sounds Airway Submandibular: within normal limits Cervical ROM: Other (< 2 finger breadths) Mallampati: Class II Dentition: chipped CV/HEM Hypertension Chronic Renal Insufficiency Metabolic Diabetes Mellitus Neuropsych Cerebrovascular Accident (Multiple strokes, last noted stroke on imaging 09/2021. Has left sided hemiplegia ), Depression and Seizure HEAD CT 12/29/21 for AMS FINDINGS: Brain: Moderate diffuse white matter disease likely reflecting chronic microvascular ischemic changes. Chronic bilateral basal ganglia lacunar infarcts. Cerebral ventricles: No ventriculomegaly. Paranasal sinuses: Visualized sinuses are unremarkable. No fluid levels. Mastoid air cells: Visualized mastoid air cells are well aerated. Bones/joints: Unremarkable. No acute fracture. Soft tissues: Unremarkable. MRI 09/2021 MR/MR head wo con* [id number] IMPRESSION: ? 1.? Acute LEFT pontine infarct, nonhemorrhagic. 2.? There is advanced chronic microvascular ischemic disease throughout the supratentorial white matter and also within the rita bilaterally. More advanced than expected for the patient's age. ? ? Anesthetic Plan ASA status: 3 Anesthesia: Anesthesia Evaluation and General Other: We discussed risk and benefits of general anesthesia including PONV, sore throat (sometimes severe), corneal abrasion, positioning and peripheral nerve injuries, life threatening allergic reaction, post operative ICU admission requiring prolonged intubation, stroke, heart attack, , and rare incidences of recall. Patient consents to proceed with general anesthesia. Risk of > 500 ml blood loss (7ml/kg in children): No Other Pertinent Information Last clopidogrel administration on 01/05/2022 Medications/Allergies Home Medications Medication Instructions Recorded Confirmed Last Taken Type escitalopram oxalate 20 mg tablet 20 mg PO DAILY@139912/01/19 01/05/22 12/29/21 08:00 History pravastatin 20 mg tablet 80 mg PO DAILY@139912/01/19 01/05/22 12/29/21 08:00 History solifenacin 5 mg tablet (Vesicare) 5 mg PO DAILY@139912/01/19 01/05/22 12/29/21 08:00 History topiramate 100 mg tablet (Topamax) 100 mg PO DAILY@139912/01/19 01/05/22 12/29/21 08:00 History ondansetron HCl 4 mg tablet 4 mg PO Q6H PRN #20 tab 03/20/20 01/05/22 12/28/21 08:26 Rx (Zofran) cyclobenzaprine 10 mg tablet 10 mg PO TID PRN 10/12/20 01/05/22 12/22/20 History blood sugar diagnostic (Accu-Chek #10 ea 10/15/20 12/29/21 Unknown Rx Gaby Plus test strp) blood-glucose meter (Accu-Chek #1 ea 10/15/20 12/29/21 Unknown Rx Gaby Plus Meter) lancets (Accu-Chek Multiclix #100 ea 10/15/20 12/29/21 Unknown Rx Lancet) metoprolol succinate 200 mg 200 mg PO DAILY@14 12/17/20 01/05/22 12/29/21 08:00 History tablet,extended release 24 hr ascorbic acid (vitamin C) 1,000 mg 1,000 mg PO BID tab 05/01/21 01/05/22 12/29/21 08:00 History tablet methenamine hippurate 1 gram 1 g PO BID 05/01/21 01/05/22 12/29/21 08:00 History tablet (Hiprex) sitagliptin 50 mg tablet (Januvia) 50 mg PO DAILY 05/01/21 01/05/22 12/29/21 08:00 History acetaminophen 325 mg capsule 325 mg PO QID PRN 08/03/21 01/05/22 Unknown History (Tylenol) bisacodyl 10 mg rectal suppository 10 mg DC DAILY PRN 08/03/21 01/05/22 Unknown History insulin glargine 100 unit/mL (3 22 unit SUBCUT .pm ml 08/03/21 01/05/22 12/28/21 History mL) subcutaneous pen (Lantus Solostar U-100 Insulin) hydrocodone 5 mg-acetaminophen 325 1 tab PO Q6H PRN 11/20/21 01/05/22 Unknown History mg tablet amino acids-protein hydrolysate 15 1 ea PO BID 12/29/21 01/05/22 12/29/21 12:00 History gram-101 kcal/30 mL oral liquid doxycycline hyclate 100 mg tablet 100 mg PO BID 12/29/21 01/05/22 12/29/21 12:00 History polyethylene glycol 3350 17 17 g PO DAILY PRN 12/29/21 01/05/22 12/26/21 History gram/dose oral powder (Miralax) sennosides 8.6 mg tablet (senna) 8.6 mg PO BID PRN 12/29/21 01/05/22 Unknown History tramadol 50 mg tablet 50 mg PO Q6H PRN 12/29/21 01/05/22 Unknown History amoxicillin 875 mg-potassium 1 tab PO BID #20 tab 01/03/22 01/05/22 Unknown Rx clavulanate 125 mg tablet (Augmentin) aspirin 81 mg tablet,delayed 81 mg PO DAILY #30 tab 01/03/22 01/05/22 Unknown Rx release amlodipine 10 mg tablet 10 mg PO DAILY 01/05/22 01/05/22 Unknown History citric acid-D gluconic acid 1 ea IRRIGATION BID 01/05/22 01/05/22 Unknown History irrigation powder clopidogrel 75 mg tablet 75 mg PO DAILY 01/05/22 01/05/22 Unknown History fluconazole 100 mg tablet 100 mg PO DAILY 01/05/22 01/05/22 Unknown History (Diflucan) Allergies Allergy/AdvReac Type Severity Reaction Status Date / Time levofloxacin [From Levaquin] Allergy NA Verified 12/29/21 16:59 metronidazole [From Flagyl] Allergy NA Verified 12/29/21 16:59 miconazole Allergy NA Verified 12/29/21 16:59 Sulfa (Sulfonamide Allergy NA Verified 12/29/21 16:59 Antibiotics) sulfamethoxazole Allergy Unknown Verified 01/05/22 16:27 [From Bactrim] trimethoprim [From Bactrim] Allergy Unknown Verified 01/05/22 16:27 [facility] Anesthesia Medical History EFREN (acute kidney injury) CKD (chronic kidney disease) CVA (cerebral vascular accident) left hemiparesis Cystitis Dehydration Depression Diabetes mellitus Diabetes mellitus, type II a1c 10/2020 12.7 Dyslipidemia Feeling grief Groin ulcer Headache History of ischemic vertebrobasilar artery thalamic stroke History of seizure on topamax History of stroke Hypertension hypertensive emergency 10/2020 Hypertension Left pontine stroke Macular degeneration Neurogenic bladder suprapubic catheter, Obesity Obstructive pyelonephritis Recurrent UTI Requires assistance with activities of daily living (ADL) TIA (transient ischemic attack) Ulcer of sacral region, stage 1 x 2, one on each buttock UTI (urinary tract infection) Surgical History H/O detached retina repair H/O oral surgery History of suprapubic catheter came out in 2019, not replaced S/P appendectomy S/P cataract surgery S/P cholecystectomy S/P knee surgery S/P shoulder surgery Family History Father Cancer Lymphoma Mother CAD (coronary artery disease) Diabetes Chronic kidney disease (CKD) Social History Alcohol intake: never Caregiver/support person: No Lives independently: No Marital status: Marital status details: 12/17/20 Current occupational status: disabled Data Anesthesia Cardiac Studies: Cardiac Event Monitor 10/05/21
--- NOTE | 2022-01-08 08:09 | W.PM.OPSUD ---
Surgery/Procedure H&P Update DATE OF PROCEDURE: January 08, 2022 DATE H&P PERFORMED: 01/03/22 H&P UPDATE INFORMATION: I have reviewed H&P completed within last 30 days, I have examined patient prior to procedure, Changes to prior documentation as noted here and H&P is in [facility] EMR on date indicated CHANGES TO PREVIOUS DOCUMENTATION: Clinically looks much better. Much more lucid, responsive, energetic. Recovering well from obstructive pyelonephritis. PREOP DIAGNOSIS: Right ureteral calculi. Status post stent for obstructive pyelonephritis PRIMARY INDICATION FOR PROCEDURE: RIGHT ureteral stones remaining after emergency stenting and antibiotic treatment for obstructive pyelonephritis. PLANNED PROCEDURE: Operation Date: 01/08/22 08:20 Proposed Procedures p Cystoscopy 60452/[id number]/85754-b71.1(Not Applicable) - Osorio Gama MD s Laser Lithotripsy(Right) - Osorio Gama MD s Retrograde Pyelogram(Right) - Osorio Gama MD s Ureteroscopy(Right) - Osorio Gama MD s Ureteral Stent Exchange(Right) - Osorio Gama MD
--- NOTE | 2022-01-08 08:17 | PM.OP ---
Operative Report Date of procedure: January 08, 2022 Pre-op diagnosis: Preop Diagnosis Right ureteral calculi. Status post stent for obstructive pyelonephritis Post-op diagnosis: Right ureteral calculi. Status post stent for obstructive pyelonephritis Procedure done: Cystoscopy, remove right ureteral stent Right ureteroscopy, ureteral debris basketing, no stent Specimens removed/disposition: Ureteral debris probably, infectious sludge. Sent to pathology Pathology: Ureteral debris that had caused obstruction. Surgeon: Natan Anesthesia: General Estimated blood loss: Minimal Urine output: Not measured Complications: None Findings: Stent easily removed. Ureteral debris/ stones easily accessible and removed with grasping forceps and stone basket. Brief History: Mrs. Shen is a very pleasant 56-year-old white female with multiple comorbidities including CVA, diabetes, hypertension, recurrent UTIs and stones. Recently hospitalized with sepsis and was discovered to have multiple stones along the right ureter with hydronephrosis. Emergency stenting was performed and she has been on antibiotics since that time with good recovery from the infectious complications. Admitted now for attempt at definitive treatment of the stones. Procedure: After routine preoperative evaluation examination and obtaining of informed consent she was taken to the operating suite on 01/08/2022 where general anesthesia was administered without difficulty after appropriate timeout was performed, SCDs confirmed to be functioning, preoperative antibiotics administered, beta-lázaro protocol confirmed. Prepped and draped in usual sterile fashion in dorsolithotomy position paying careful attention to avoiding pressure points. 21 German cystoscope with 30 degree lens was introduced into urethra meatus and advanced into the bladder without difficulty. A flexible tip guidewire was advanced up the right ureter next to the stent and then the stent was removed with grasping forceps. The wire was secured to the drapes as a safety wire. A second wire was passed just in case the ureteral access sheath needed to be utilized. 7.5 German offset semirigid ureteroscope was advanced up the right ureter next to the guidewire and the ureter was confirmed to be well dilated and the second guidewire was removed because of that. Scope was easily passed. Multiple passages of the scope were utilized to secure and remove infectious sludge that had taken the shape of the ureter. Some was actually removed from the renal pelvis. Grasping forcep and X catch basket were utilized to do this. There was no tension whatsoever. The ureter was carefully inspected after removal of all these stones and it was felt to be well dilated with no concern for ureteral trauma. For that reason no stent was left indwelling. The right groin wound was packed after the wound was irrigated. Suprapubic tube was left to dependent drainage at the completion of the procedure. She tolerated procedure well without complications and was awakened in the operating room and returned to the recovery room in stable condition. PLANS: 1. Anticipate discharge from outpatient surgery 2. 6 months with KUB
[2022-01-08] MEDS: sodium chloride 0.9% 1,000 ML 30 ML IV (08:19)
[2022-01-08 08:21] LABS: Glucose Point of Care 153 mg/dL (70-110)
[2022-01-08] MEDS: piperacillin-tazobactam 3.375 GM in sodium chloride 0.9% (plus) 50 ML IV (08:36)
--- NOTE | 2022-01-08 10:32 | PC.NURSE ---
Report and update called to OCTAVIO Smith at [facility].
--- NOTE | 2022-01-08 11:54 | ANE.PACU2 ---
Inpatient post-anesthesia follow up: Airway intact: Yes Vital signs: Temperature 97 F Pulse Rate 94 Respiratory Rate 15 Blood Pressure 165/98 Pulse Oximetry 95 Oxygen Delivery Me thod Room Air Oxygen Flow Rate Fraction of Inspir ed Oxygen Hydration adequate: Yes Nausea and vomiting: No Pain level: 7 Mental status: Baseline Additional Comments: Baseline pain
== END 2022-01-08 11:53 | disposition home or self-care (01) ==
PROVIDERS: PCP Family Medicine; Visit Provider Urology
PROC: 0TJB8ZZ Inspection of Bladder, Via Natural or Artificial Opening Endoscopic (ICD-10-PCS; CPT 52000; principal; 2022-01-08 08:10)
PROC: 0TJ98ZZ Inspection of Ureter, Via Natural or Artificial Opening Endoscopic (ICD-10-PCS; CPT 52351; 2022-01-08 08:10)
PROC: (CPT 52310; 2022-01-08 08:10)
DX: N20.1 Calculus of ureter (principal); N12 Tubulo-interstitial nephritis, not specified as acute or chronic; I10 Essential (primary) hypertension; E11.9 Type 2 diabetes mellitus without complications; I69.854 Hemiplegia and hemiparesis following other cerebrovascular disease affecting left non-dominant side
CPT/HCPCS: 52352; 36416; 76000; 82962; 88305; 88312; J1100; J2250; J2370; J2405; J2543; J2704; J3010; J3490; J7030

== ENCOUNTER 2022-01-11 07:24 | Outpatient (CLI) | payer MEDICARE, MEDICAID, SELFPAY ==
--- NOTE | 2022-01-11 08:00 | USCV_ITS ---
Erika Shen Age: 56 Gender: F : 1965 Exam Date: 01/11/2022 07:54 Ordering Phys: Betsy Pennington MD Technologist: VERO Exam Location: [facility] Indication: cerebral infarction BP: 136 / 74 HR: 59 Rhythm: Sinus Technical Quality: Technically difficult study MEASUREMENTS (Male / Female) Normal Values 2D ECHO LV Diastolic Diameter PLAX 4.0 cm 4.2 - 5.9 / 3.9 - 5.3 cm LV Systolic Diameter PLAX 2.6 cm IVS Diastolic Thickness 1.5 cm 0.6 - 1.0 / 0.6 - 0.9 cm IVS Systolic Thickness 2.3 cm LVPW Diastolic Thickness 1.2 cm 0.6 - 1.0 / 0.6 - 0.9 cm LVPW Systolic Thickness 1.8 cm LVOT Diameter 2.0 cm LV Ejection Fraction 2D Teich 63.9 % LV Ejection Fraction MOD 2C 66.4 % LV Ejection Fraction 2C AL 68.9 % LA Diameter 3.2 cm LA Width 3.5 cm LA Height 5.2 cm RA Width 3.1 cm RA Height 4.6 cm Aorta at Sinotubular Diameter 2.5 cm M-MODE Aortic Annulus Diameter 3.3 cm LA Ao Ratio MM 0.9 MV E Point Septal Separation 0.3 cm DOPPLER AV Peak Velocity 87.0 cm/s LVOT Peak Velocity 82.0 cm/s AV Area Cont Eq vti 4.1 cm squared AV Area Cont Eq pk 3.1 cm squared MV Peak Velocity 83.0 cm/s MV Area PHT 2.7 cm squared Mitral E to A Ratio 0.8 MV E' Velocity 35.5 cm/s Mitral E to MV E' Ratio 11.1 Mitral E to LV E' Lateral Ratio 10.7 Mitral E to LV E' Septal Ratio 11.5 TR Peak Velocity 133.9 cm/s TR Peak Gradient 7.2 mmHg TR Mean Velocity 110.1 cm/s TR Mean Gradient 5.1 mmHg TR Velocity Time Integral 35.8 cm TV Peak E Velocity 34.0 cm/s Right Atrial Pressure 3.0 mmHg Pulmonary Artery Systolic Pressu 10.2 mmHg PV Peak Velocity 71.0 cm/s RV Acceleration Time 0.1 s RV Ejection Time 0.3 s RV AcT/ET 0.3 FINDINGS Left Ventricle Normal left ventricular size. LV systolic function is normal with EF of 55-60%. No regional wall motion abnormalities. Grade 1 diastolic dysfunction Right Ventricle The right ventricle is normal in size and function. Right Atrium The right atrium is normal in size. Left Atrium The left atrium is normal in size. Mitral Valve Structurally normal mitral valve without significant stenosis or prolapse. There is no mitral regurgitation. Aortic Valve Structurally normal aortic valve without significant sclerosis or stenosis. There is no aortic regurgitation. Tricuspid Valve Structurally normal tricuspid valve without significant stenosis or regurgitation. Insufficient TR jet to calculate RVSP Pulmonic Valve Not well-visualized Pericardium Normal pericardium without effusion. Aorta Normal ascending aorta dimension. CONCLUSIONS LV systolic function is normal with EF of 55-60% Grade 1 diastolic dysfunction No significant valvular dysfunction Compared to prior echocardiogram from 09/22/2019, no significant changes are seen. Ramu Mccracken MD (Electronically Signed) Final Date: 12 January 2022 16:57 S
== END 2022-01-11 07:25 | disposition home or self-care (01) ==
LOC: RAD 07:25
PROVIDERS: PCP Family Medicine; Visit Provider Specialist
DX: I63.9 Cerebral infarction, unspecified (principal); I51.89 Other ill-defined heart diseases
CPT/HCPCS: 93306

== ENCOUNTER 2022-01-11 15:30 | Outpatient (CLI) | payer MEDICARE, MEDICAID, SELFPAY ==
[2022-01-11 17:01] LABS: Anion Gap 16.4 (5-19); Blood Urea Nitrogen 14 mg/dL (6-20); Calcium 8.6 mg/dL (8.5-10.5); Carbon Dioxide 23 mmol/L (22-29); Chloride 106 mmol/L (98-107); Glomerular Filtration Rate 38.8 mL/min (90-130); Glucose 110 mg/dL (65-115); Osmolality Calculated 293 mOsm/kg (285-295); Potassium 4.4 mmol/L (3.5-5.1); Sodium 141 mmol/L (136-145)
== END 2022-01-11 15:31 | disposition home or self-care (01) ==
LOC: LAB 15:33
PROVIDERS: PCP Family Medicine; Visit Provider Nurse Practitioner Family
DX: N30.90 Cystitis, unspecified without hematuria (principal)
CPT/HCPCS: 80048

== ENCOUNTER → 2022-07-04 10:44 | Outpatient (BNVA) | payer MEDICARE, MEDICAID, SELFPAY | PROVIDERS: PCP Family Medicine; Visit Provider Specialist | DX: I69.322 Dysarthria following cerebral infarction (principal); I69.393 Ataxia following cerebral infarction; I69.319 Unspecified symptoms and signs involving cognitive functions following cerebral infarction; N18.9 Chronic kidney disease, unspecified; R56.9 Unspecified convulsions | CPT/HCPCS: 99215 ==

== ENCOUNTER 2022-07-10 09:57 | Outpatient (CLI) | payer MEDICARE, MEDICAID, SELFPAY | END 2022-07-10 09:58 | disposition home or self-care (01) | LOC: RAD 10:02 | PROVIDERS: PCP Family Medicine; Visit Provider Urology | DX: N20.1 Calculus of ureter (principal); N39.0 Urinary tract infection, site not specified; R33.9 Retention of urine, unspecified | CPT/HCPCS: 74018; 99213 ==

== ENCOUNTER 2022-08-09 08:56 | Observation (INO) | payer MEDICARE, MEDICAID, SELFPAY ==
[2022-08-09] VITALS (64 sets, daily range): BP systolic 123–165; BP diastolic 67–101; PULSE 61–80; RESP 8–21; TEMP 36.8–37.1; O2SAT 93–100; BMI 30.1
--- NOTE | 2022-08-09 09:15 | PC.NURSE ---
pt arrived by EMS. per EMS, blood glucose was 162.3 Pt arrived alert, intermittently drowsy but easily arousable, oriented to person, place, and time. PERRL. Lung sounds clear bilat. bowel sounds present. skin pink/warm/dry. left sided weakness noted r/t previous CVA. hematuria noted, suprapubic catheter insertion site appears free of erythema or drainage. pt speech is clear, pt appears RAMONA.
--- NOTE | 2022-08-09 09:16 | ECG_ITS ---
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 Measurements Intervals Baldwin Rate: 66 P: 29 VT: 204 QRS: -22 QRSD: 85 T: 13 QT: 419 QTc: 441 Interpretive Statements SINUS RHYTHM BORDERLINE LEFT AXIS DEVIATION [QRS AXIS < -20] MODERATE VOLTAGE CRITERIA FOR LVH, CONSIDER NORMAL VARIANT Compared to ECG 06/29/2021 15:06:08 Myocardial infarct finding no longer present Electronically Signed On 08-09-2022 12:52:04 CDT by Ernestine Toth M.D. [email or web address]
--- NOTE | 2022-08-09 09:16 | XRR_ITS ---
PROCEDURE INFORMATION: Exam: XR Chest Exam date and time: 08/09/2022 9:41 AM Age: 57 years old Clinical indication: Cough and dyspnea; Patient HX: PT AMS; Additional info: Dyspnea/cough TECHNIQUE: Imaging protocol: Radiologic exam of the chest. Views: 1 view. COMPARISON: CT chest abd pel wo con 12/29/2021 8:55 PM FINDINGS: Lungs: Low lung volumes. The lung parenchyma is clear. Pleural spaces: No pneumothorax. No pleural effusion. Heart/Mediastinum: The cardiomediastinal silhouette is within normal limits. Bones/joints: Postsurgical changes in the right shoulder. XR/XR chest 1V portable [id number] IMPRESSION: No acute cardiopulmonary abnormality.
--- NOTE | 2022-08-09 09:16 | CT_ITS ---
WS: [id number] CT HEAD TECHNIQUE: Noncontrast CT of the head obtained from the skullbase to the vertex. CLINICAL INFORMATION: AMS COMPARISON: CT December 29, 2021 DLP: 1250.[address] scans at [facility] use at least one of these dose optimization techniques: automated e xposure control; mA and/or kV adjustment per patient size (includes targeted exams where dose is matc hed to clinical indication); or iterative reconstruction. FINDINGS: No evidence of intracranial hemorrhage or mass effect. Ventricular system and basal cisterns are valencia nt. Moderate small vessel changes with moderate parenchymal volume loss. Chronic lacunar infarcts in the basal ganglia. Intracranial vascular complication. No extra-axial fluid collections. No evidence of mass or mass effect. Paranasal sinuses and mastoid air cells are well aerated. .Normal visualized soft tissues. CT/CT head wo con* [id number] IMPRESSION: 1. No evidence of intracranial hemorrhage or mass effect. 2. Moderate small vessel changes. Moderate parenchymal volume loss. 3. Chronic lacunar infarcts in the internal capsules and thalamus bilaterally. 4. Intracranial vascular calcification. 5. No acute intracranial findings.
--- NOTE | 2022-08-09 09:22 | PC.NURSE ---
pt on monitor including monitor technician
[2022-08-09 09:23] LABS: Basophils % 0.4 %; Eosinophils # 0.2 10^3/uL (0.0-0.8); Eosinophils % 2.5 %; Hemoglobin 12.8 g/dL (11.5-15.3); Lymphocytes # 1.6 10^3/uL (0.8-4.8); Mean Corpuscular HGB Conc 31.2 g/dL (30.0-36.0); Mean Corpuscular Hemoglobin 27.1 pg (28.0-34.0); Mean Corpuscular Volume 86.9 fl (81-99); Mean Platelet Volume 9.5 fL (7.4-10.4); Monocytes # 0.4 10^3/uL (0.2-0.9); Monocytes % 5.5 %; Neutrophils # 4.59 10^3/uL (1.8-7.7); Neutrophils % 67.7 %; Nucleated Red Blood Cells % 0 %; Platelet Count 337 10^3/cmm (130-400); Red Blood Count 4.72 10^6/uL (4.1-5.3); Red Cell Distribution Width 13.1 % (12.1-15.1); White Blood Count 6.8 10^3/uL (4.0-10.0)
[2022-08-09 09:34] LABS: Glucose Point of Care 150 mg/dL (70-110)
[2022-08-09 09:56] LABS: Albumin Level 3.7 g/dL (3.5-5.2); Alkaline Phosphatase 87 U/L (35-105); Blood Urea Nitrogen 28 mg/dL (6-20); Calcium 9.1 mg/dL (8.5-10.5); Carbon Dioxide 21 mmol/L (22-29); Chloride 107 mmol/L (98-107); Globulin 3.8 g/dL (1.3-4.6); Glomerular Filtration Rate 33.1 mL/min (90-130); Glucose 142 mg/dL (65-115); Lipase 18 U/L (13-60); Osmolality Calculated 300 mOsm/kg (285-295); Sodium 141 mmol/L (136-145); Total Bilirubin 0.2 mg/dL (0.15-1.2); Total Protein 7.5 g/dL (6.6-8.7)
[2022-08-09 09:58] LABS: Alanine Aminotransferase 6 U/L (0-33); Anion Gap 17.9 (5-19); Aspartate Amino Transferase 12 U/L (0-32); Potassium 4.9 mmol/L (3.5-5.1)
--- NOTE | 2022-08-09 10:00 | PC.PHAR ---
pt is from [facility] [phone]-per brooks nurse at [facility] states pt had all am meds and one norco at 08:01
--- NOTE | 2022-08-09 10:12 | ED_ITS ---
HPI - Altered Mental Status General: Chief Complaint: Altered Mental Status Stated Complaint: AMS Time Seen by Provider: 08/09/22 09:01 Source: patient Mode of arrival: ambulatory History of Present Illness: 57-year-old female presents from the detention with complaint of altered mental status. She is was reported to have int ermittent altered mental status for the last 5 days that been on Rocephin for 3 days. I suspect they are doing that with anticipation of a year urinary tract infection however I do not have any confirmation at this point. Uncertain of blood cultures were done at the detention will need to verify. Patient has been intermittently hallucinating. She is complaining to me of a headache at the base of her head and is also complains of significant abdominal discomfort predominantly in the epigastric and right upper quadrant area. Eyes no report of trauma. No confirmed fevers. Patient also refers to some pelvic discomfort I suspect that is from the suprapubic catheter. There is blood in the catheter tubing however the report is that that has been continuous since the suprapubic catheter was placed. MD complaint: altered mental status and confusion Onset (ago): day(s) (3) Associated symptoms: Reports auditory hallucinations and visual hallucinations Review of Systems General: Reports: ROS unobtainable due to mental status Psych: Reports: visual hallucinations and auditory hallucinations PFSH ED PFSH: Medical History Acute ischemic multifocal multiple vascular territories stroke EFREN (acute kidney injury) CKD (chronic kidney disease) CVA (cerebral vascular accident) left hemiparesis Cystitis Dehydration Depression Diabetes mellitus Diabetes mellitus, type II a1c 10/2020 12.7 Dyslipidemia Feeling grief Groin ulcer Headache History of ischemic vertebrobasilar artery thalamic stroke History of seizure on topamax History of stroke Hypertension hypertensive emergency 10/2020 Hypertension Left pontine stroke Macular degeneration Neurogenic bladder suprapubic catheter, Obesity Obstructive pyelonephritis Recurrent UTI Requires assistance with activities of daily living (ADL) Seizures TIA (transient ischemic attack) Ulcer of sacral region, stage 1 x 2, one on each buttock Urethral pain UTI (urinary tract infection) Surgical History H/O detached retina repair H/O oral surgery History of suprapubic catheter came out in 2019, not replaced S/P appendectomy S/P cataract surgery S/P cholecystectomy S/P knee surgery S/P shoulder surgery Family History Father Cancer Lymphoma Mother CAD (coronary artery disease) Diabetes Chronic kidney disease (CKD) Social History Smoking and tobacco status: former smoker Alcohol intake: never Caregiver/support person: No Lives independently: No Marital status: Marital status details: 12/17/20 Current occupational status: disabled Course Vital Signs: Vital signs: Vital Signs Temperature 97.7 F 08/11/22 11:35 Pulse Rate 70 08/11/22 11:35 Respiratory Rate 17 08/11/22 11:35 Blood Pressure 134/73 08/11/22 11:35 Pulse Oximetry 95 08/11/22 11:35 Oxygen Delivery Me thod 08/11/22 11:35 MDM - Altered Mental Status Medical Decision Making Patient still has altered mental status change antibiotics to meropenem. Discussed with hospitalist will admit. Will need to get cultures from the detention if they were done. Medical Records I reviewed the patient's medical records. Lab Data I reviewed the patient's lab results. : 08/10/22 04:45 08/11/22 03:33 Radiology Impressions Chest X-Ray 08/09/22 09:16 IMPRESSION: No acute cardiopulmonary abnormality. Head CT 08/09/22 09:16 IMPRESSION: 1. No evidence of intracranial hemorrhage or mass effect. 2. Moderate small vessel changes. Moderate parenchymal volume loss. 3. Chronic lacunar infarcts in the internal capsules and thalamus bilaterally. 4. Intracranial vascular calcification. 5. No acute intracranial findings. Abdomen/Pelvis CT 08/09/22 16:56 IMPRESSION: There are no acute concerning abnormalities. Laboratory Results WBC 6.8 10^3/uL (4.0-10.0) 08/09/22 08:44 RBC 4.72 10^6/uL (4.1-5.3) 08/09/22 08:44 Hgb 12.8 g/dL (11.5-15.3) 08/09/22 08:44 Hct 41.0 % (37.0-47.0) 08/09/22 08:44 MCV 86.9 fl (81-99) 08/09/22 08:44 MCH 27.1 pg (28.0-34.0) L 08/09/22 08:44 MCHC 31.2 g/dL (30.0-36.0) 08/09/22 08:44 RDW 13.1 % (12.1-15.1) 08/09/22 08:44 Plt Count 337 10^3/cmm (130-400) 08/09/22 08:44 MPV 9.5 fL (7.4-10.4) 08/09/22 08:44 Neut % (Auto) 67.7 % 08/09/22 08:44 Lymph % (Auto) 23.0 % 08/09/22 08:44 [place] % (Auto) 5.5 % 08/09/22 08:44 Eos % (Auto) 2.5 % 08/09/22 08:44 Baso % (Auto) 0.4 % 08/09/22 08:44 Neut # (Auto) 4.59 10^3/uL (1.8-7.7) 08/09/22 08:44 Lymph # (Auto) 1.6 10^3/uL (0.8-4.8) 08/09/22 08:44 [place] # (Auto) 0.4 10^3/uL (0.2-0.9) 08/09/22 08:44 Eos # (Auto) 0.2 10^3/uL (0.0-0.8) 08/09/22 08:44 Baso # (Auto) 0.0 10^3/uL (0.0-0.1) 08/09/22 08:44 Nucleated RBC % (auto) 0 % 08/09/22 08:44 Nucleated RBCs # 0.0 /100WBC 08/09/22 08:44 Sodium 141 mmol/L (136-145) 08/09/22 08:44 Potassium 4.9 mmol/L (3.5-5.1) 08/09/22 08:44 Chloride 107 mmol/L (98-107) 08/09/22 08:44 Carbon Dioxide 21 mmol/L (22-29) L 08/09/22 08:44 Anion Gap 17.9 (5-19) 08/09/22 08:44 BUN 28 mg/dL (6-20) H 08/09/22 08:44 Creatinine 1.6 mg/dL (0.5-0.9) H 08/09/22 08:44 GFR Calculation 33.1 mL/min (90-130) L 08/09/22 08:44 Glucose 142 mg/dL (65-115) H 08/09/22 08:44 POC Glucose 150 mg/dL (70-110) H 08/09/22 09:30 Calculated Osmolality 300 mOsm/kg (285-295) H 08/09/22 08:44 Lactic Acid 1.4 mmol/L (0.5-2.2) 08/09/22 10:02 Calcium 9.1 mg/dL (8.5-10.5) 08/09/22 08:44 Total Bilirubin 0.2 mg/dL (0.15-1.2) 08/09/22 08:44 AST 12 U/L (0-32) 08/09/22 08:44 ALT 6 U/L (0-33) 08/09/22 08:44 Alkaline Phosphatase 87 U/L (35-105) 08/09/22 08:44 Total Protein 7.5 g/dL (6.6-8.7) 08/09/22 08:44 Albumin 3.7 g/dL (3.5-5.2) 08/09/22 08:44 Globulin 3.8 g/dL (1.3-4.6) 08/09/22 08:44 Lipase 18 U/L (13-60) 08/09/22 08:44 Procalcitonin 0.23 ng/mL (0-0.5) 08/09/22 08:40 Urine Color Red (Yellow) 08/09/22 10:40 Urine Appearance Cloudy (CLEAR) A 08/09/22 10:40 Urine pH 6 (5-7) 08/09/22 10:40 Ur Specific [place] 1.015 (1.005-1.030) 08/09/22 10:40 Urine Protein 3+ (Negative) H 08/09/22 10:40 Urine Glucose (UA) Norm (Normal) 08/09/22 10:40 Urine Ketones Negative (Negative) 08/09/22 10:40 Urine Blood 3+ (Negative) H 08/09/22 10:40 Urine Nitrate Positive (Negative) H 08/09/22 10:40 Urine Bilirubin Neg (Negative) 08/09/22 10:40 Urine Urobilinogen Neg mg/dL (Negative) 08/09/22 10:40 Ur Leukocyte Esterase 2+ (Negative) H 08/09/22 10:40 Urine RBC Too numerous to cnt /hpf (0-2) H 08/09/22 10:40 Urine WBC Too numerous to cnt /hpf (0-5) H 08/09/22 10:40 Ur Squamous Epith Cells None /hpf (0-5) 08/09/22 10:40 Amorphous Sediment Not Reportable 08/09/22 10:40 Urine Bacteria 2+ /hpf (NONE) H 08/09/22 10:40 Discharge Plan Discharge Patient Disposition: Admitted As Inpatient Admit Provider: Hillary Silva Clinical Impression: Encephalopathy, CKD (chronic kidney disease), History of CVA (cerebrovascular accident), Cystitis Condition: Stable Coding Level of Care Code ED Tab Card Press Operator for Ish Sawyer
[2022-08-09 10:24] LABS: Lactic Sepsis W/Reflex 1.4 mmol/L (0.5-2.2)
[2022-08-09 11:00] LABS: Add Urine Microscopic? YES; Bilirubin Urine Neg (Negative); Blood Urine 3+ (Negative); Glucose Urine UA Norm (Normal); Ketones Urine Negative (Negative); Leukocyte Esterase Urine 2+ (Negative); Nitrate Urine Positive (Negative); Protein Urine 3+ (Negative); Specific Gravity, Urine 1.015 (1.005-1.030); Urine Appearance Cloudy (CLEAR); Urine Color Red (Yellow); Urobilinogen Urine Neg (Negative); pH Urine 6 (5-7)
[2022-08-09 11:02] LABS: RBC Urine TOO NUMEROUS TO CNT /hpf (0-2); WBC Urine TOO NUMEROUS TO CNT /hpf (0-5)
[2022-08-09 11:04] LABS: Add Urine Culture? Yes; Bacteria Urine 2+ /hpf
--- NOTE | 2022-08-09 14:55 | P.HP_ITS ---
Providers/Chief Complaint Admitting Physician: Hillary Silva MD Primary Care Provider: Vu Neil Jr, MD Chief Complaint: AMS History of Present Illness Erika Shen is a 57 year old female who is bedbound, penitentiary resident, suprapubic catheter which gets replaced every month as per the patient presented today with altered mental status. For last 3 days she has been getting ceftriaxone in the penitentiary but there is no significant improvement hence she was sent to the ER for further evaluation. Abnormal UA was noted she is afebrile no leukocytosis she is not septic. Urine culture has been obtained in the ER she has been started on beta lactams, she is awake and alert pleasantly confused, able to answer my questions, nonfocal neuro exam. She is complaining of headache. She did endorse couple episodes of diarrhea with 1 episode of emesis. She is complaining of pain in hypogastric region. She has acute on chronic kidney disease creatinine 1.6 Review of Systems Const: Reports: body aches Eyes: Denies: change in vision ENMT: Denies: throat pain Card: Denies: chest pain Resp: Denies: dyspnea GI: Reports: abdominal pain : Denies: flank pain Musc: Denies: neck pain Skin/Breast: Denies: rash Neuro: Reports: headache(s) Psych: Reports: anxiety Endo: Denies: polyuria [place]/Lymph: Denies: easy bruising All/Imm: Denies: urticaria Medications/Allergies Home Medications Medication Instructions Recorded Confirmed Last Taken Type escitalopram oxalate 20 mg tablet 20 mg PO DAILY@12/01/19 08/09/22 08/09/22 History solifenacin 5 mg tablet (Vesicare) 5 mg PO DAILY@12/01/19 08/09/22 08/09/22 History topiramate 100 mg tablet (Topamax) 100 mg PO DAILY@12/01/19 08/09/22 08/09/22 History cyclobenzaprine 10 mg tablet 10 mg PO Q8H PRN muscle spasms 10/12/20 08/09/22 12/22/20 History blood sugar diagnostic (Accu-Chek #10 ea 10/15/20 08/09/22 Unknown Rx Gaby Plus test strips) blood-glucose meter (Accu-Chek #1 ea 10/15/20 08/09/22 Unknown Rx Gaby Plus Meter) lancets (Accu-Chek Multiclix #100 ea 10/15/20 08/09/22 Unknown Rx Lancet) metoprolol succinate 200 mg 200 mg PO DAILY@12/17/20 08/09/22 08/09/22 History tablet,extended release 24 hr ascorbic acid (vitamin C) 1,000 mg 1,000 mg PO BID 05/01/21 08/09/22 08/09/22 History tablet methenamine hippurate 1 gram 1 g PO BID 05/01/21 08/09/22 08/09/22 History tablet (Hiprex) sitagliptin 50 mg tablet (Januvia) 50 mg PO DAILY@05/01/21 08/09/22 08/09/22 History bisacodyl 10 mg rectal suppository 10 mg MD DAILY PRN Constipation 08/03/21 08/09/22 Unknown History insulin glargine 100 unit/mL (3 22 unit SUBCUT BEDTIME@08/03/21 08/09/22 08/08/22 History mL) subcutaneous pen (Lantus Solostar U-100 Insulin) hydrocodone 5 mg-acetaminophen 325 1 tab PO Q4H PRN Pain 11/20/21 08/09/22 08/09/22 08:01 History mg tablet polyethylene glycol 3350 17 17 g PO DAILY PRN Constipation 12/29/21 08/09/22 12/26/21 History gram/dose oral powder (Miralax) sennosides 8.6 mg tablet (senna) 8.6 mg PO Q12H PRN Constipation 12/29/21 08/09/22 Unknown History tramadol 50 mg tablet 50 mg PO Q6H PRN Pain 12/29/21 08/09/22 Unknown History amlodipine 10 mg tablet 10 mg PO DAILY@01/05/22 08/09/22 08/09/22 History clopidogrel 75 mg tablet 75 mg PO DAILY@01/05/22 08/09/22 08/09/22 History magnesium hydroxide 400 mg/5 mL 30 ml PO DAILY PRN Constipation 07/10/22 08/09/22 Unknown History oral suspension (Milk of Magnesia) mupirocin 2 % topical ointment See Rx Instructions .Route .COMPLEX 07/10/22 08/09/22 Unknown History nystatin 100,000 unit/gram topical See Rx Instructions .Route .COMPLEX 07/10/22 08/09/22 Unknown History powder ondansetron HCl 4 mg tablet 4 mg PO Q6H PRN Nausea 07/10/22 08/09/22 Unknown History acetaminophen 325 mg tablet 650 mg PO Q4H PRN Pain 08/09/22 08/09/22 Unknown History (Tylenol) alprazolam 0.5 mg tablet (Xanax) 0.5 mg PO .ONCE 08/09/22 08/09/22 08/07/22 History ceftriaxone 1 gram solution for 1 g IM DAILY 08/09/22 08/09/22 08/08/22 History injection finished 08/08/22 3d/ citric ac 1980.6 mg-glucono 59.4 See Rx Instructions .Route .COMPLEX 08/09/22 08/09/22 Unknown History mg-mag carb 980.4 mg/30 mL irrig.soln (Renacidin) pravastatin 80 mg tablet 80 mg PO DAILY@19 08/09/22 08/09/22 08/08/22 History sodium phosphates 19 gram-7 118 ml MD DAILY PRN Constipation 08/09/22 08/09/22 Unknown History gram/118 mL enema (Enema Disposable) Allergies Allergy/AdvReac Type Severity Reaction Status Date / Time levofloxacin [From Levaquin] Allergy NA Verified 08/09/22 09:46 metronidazole [From Flagyl] Allergy NA Verified 08/09/22 09:46 miconazole Allergy NA Verified 08/09/22 09:46 Sulfa (Sulfonamide Allergy NA Verified 08/09/22 09:46 Antibiotics) sulfamethoxazole Allergy Unknown Verified 08/09/22 09:46 [From Bactrim] trimethoprim [From Bactrim] Allergy Unknown Verified 08/09/22 09:46 PFSH Acute PFSH: Medical History EFREN (acute kidney injury) CKD (chronic kidney disease) CVA (cerebral vascular accident) left hemiparesis Cystitis Dehydration Depression Diabetes mellitus Diabetes mellitus, type II a1c 10/2020 12.7 Dyslipidemia Feeling grief Groin ulcer Headache History of ischemic vertebrobasilar artery thalamic stroke History of seizure on topamax History of stroke Hypertension hypertensive emergency 10/2020 Hypertension Left pontine stroke Macular degeneration Neurogenic bladder suprapubic catheter, Obesity Obstructive pyelonephritis Recurrent UTI Requires assistance with activities of daily living (ADL) TIA (transient ischemic attack) Ulcer of sacral region, stage 1 x 2, one on each buttock UTI (urinary tract infection) Surgical History H/O detached retina repair H/O oral surgery History of suprapubic catheter came out in 2019, not replaced S/P appendectomy S/P cataract surgery S/P cholecystectomy S/P knee surgery S/P shoulder surgery Family History Father Cancer Lymphoma Mother CAD (coronary artery disease) Diabetes Chronic kidney disease (CKD) Social History Smoking and tobacco status: former smoker Alcohol intake: never Caregiver/support person: No Lives independently: No Marital status: Marital status details: 12/17/20 Current occupational status: disabled Vitals/I&O/Wt Last Vital Signs Temp 98.7 F 08/09/22 09:05 Pulse 64 08/09/22 14:00 Resp 21 H 08/09/22 14:00 BP 153/85 08/09/22 14:00 Pulse Ox 99 08/09/22 14:00 O2 Del Method 08/09/22 10:29 Weight last 48 hrs Weight 95.254 kg Physical Exam Narrative: Morbidly obese female Oriented to herself Able to follow commands No new focal deficit Lower extremity disuse atrophy Currently on room air S1, S2 Hemodynamically stable Able to answer simple questions Nurse at the bedside Suprapubic catheter insertion site does have some purulent material around the catheter No audible stridor or wheezing Lungs are clear to auscultation Data : 08/09/22 08:44 08/09/22 08:44 Micro: Microbiology 08/09/22 09:27 Blood Culture - Preliminary Blood SPECIMEN COLLECTED 08/09/22 09:31 Blood Culture - Preliminary Blood SPECIMEN COLLECTED A&P Assessment and plan (1) Neurogenic bladder: (2) Recurrent UTI: (3) CKD (chronic kidney disease): Qualifiers: Chronic kidney disease stage: stage 3 (moderate) Chronic kidney disease stage 3 subtype: stage 3b (GFR 30-44) Qualified Code(s): N18.32 - Chronic kidney disease, stage 3b (4) Urethral pain: (5) History of ischemic vertebrobasilar artery thalamic stroke: (6) Hypertension: (7) Seizures: (8) Acute ischemic multifocal multiple vascular territories stroke: Plan Recurrent UTI No signs of sepsis Patient has mild acute delirium with underlying dementia History of seizure Oriented to herself We will start her on meropenem Will obtain urine culture She is complaining of headache no signs of meningoencephalitis Heart rate is in 60s decrease the dose of metoprolol succinate Continue amlodipine along metoprolol succinate DVT prophylaxis with heparin Acute on chronic kidney disease creatinine 1.[address] abdomen pelvis without contrast Full code Regular diet Attestations Medical Necessity Statement*: Anticipating discharge within 48 hours she has not responded well to ceftriaxone given in the penitentiary now she is on meropenem Time Spent in Patient Care: 35 Coding Level of Care Code Acute [employer] Attorney for g Fwd Diagnoses Neurogenic bladder N31.9 Recurrent UTI N39.0 CKD (chronic kidney disease) N18.32 Chronic kidney disease stage: stage 3 (moderate) Chronic kidney disease stage 3 subtype: stage 3b (GFR 30-44) Urethral pain R39.89 History of ischemic vertebrobasilar artery thalamic stroke Z86.73 Hypertension I10 Seizures R56.9 Acute ischemic multifocal multiple vascular territories stroke I63.89
[2022-08-09 15:41] LABS: Procalcitonin 0.23 ng/mL (0-0.5)
[2022-08-09] MEDS: mupirocin oint 22 gm TOPICAL (16:39)
[2022-08-09 16:49] LABS: Glucose Point of Care 144 mg/dL (70-110)
--- NOTE | 2022-08-09 16:56 | CTR_ITS ---
PROCEDURE INFORMATION: Exam: CT Abdomen And Pelvis Without Contrast Exam date and time: 08/09/2022 8:40 PM Age: 57 years old Clinical indication: Pain and abnormal findings; Abnormal lab test; Abnormal kidney function lab tests and elevated wbc; Abdominal pain; Generalized; Prior surgery; Surgery type: Gb. Appy; Patient HX: C/O diffuse abd pain. Elevated wbc and elevated bun/creat. Bacteriuria. History of ckd. ; Additional info: Leroy TECHNIQUE: Imaging protocol: Computed tomography of the abdomen and pelvis without contrast. Radiation optimization: All CT scans at this facility use at least one of these dose optimization techniques: automated exposure control; mA and/or kV adjustment per patient size (includes targeted exams where dose is matched to clinical indication); or iterative reconstruction. COMPARISON: CT chest abd pel wo con 12/29/2021 8:55 PM RADIATION DOSE METRICS: Total DLP (mGy-cm): 1260.94 FINDINGS: Liver: Normal. No mass. Gallbladder and bile ducts: There has been a cholecystectomy. Pancreas: Normal. No ductal dilation. Spleen: Normal. No splenomegaly. Adrenal glands: Normal. No mass. Kidneys and ureters: There is right extrarenal pelvis. Stomach and bowel: There is fecal impaction in the rectosigmoid colon. No bowel obstruction. Appendix: There has been appendectomy. Intraperitoneal space: Unremarkable. No free air. No significant fluid collection. Vasculature: Unremarkable. No abdominal aortic aneurysm. Lymph nodes: Unremarkable. No enlarged lymph nodes. Urinary bladder: There is a Root catheter in a decompressed bladder. Reproductive: Unremarkable as visualized. Bones/joints: Degenerative change is identified in the spine. There is no evidence for acute fracture or malalignment. Soft tissues: Unremarkable. CT/CT abdomen pelvis wo con [id number] IMPRESSION: There are no acute concerning abnormalities.
[2022-08-09] MEDS: meropenem 1,000 MG in sodium chloride 0.9% (plus) 50 ML 100 MG IV (19:53)
[2022-08-09] MEDS: insulin glargine 100 units/1 mL 20 UNIT SUBCUT (19:54)
[2022-08-09 20:24] LABS: Glucose Point of Care 167 mg/dL (70-110)
[2022-08-09] MEDS: heparin 5,000 unit/mL INJ 1 mL 5000 UNIT SUBCUT (23:02)
[2022-08-10] VITALS (9 sets, daily range): BP systolic 120–154; BP diastolic 62–85; PULSE 60–77; RESP 14–17; TEMP 36.6–37.3; O2SAT 89–96
[2022-08-10] MEDS: meropenem 1,000 MG in sodium chloride 0.9% (plus) 50 ML 100 MG IV ×3 (02:27→19:20)
[2022-08-10 04:58] LABS: Basophils # 0.1 10^3/uL (0.0-0.1); Basophils % 0.7 %; Eosinophils # 0.2 10^3/uL (0.0-0.8); Eosinophils % 3.2 %; Hematocrit 37.5 % (37.0-47.0); Hemoglobin 11.8 g/dL (11.5-15.3); Lymphocytes # 1.8 10^3/uL (0.8-4.8); Lymphocytes % 24.5 %; Mean Corpuscular HGB Conc 31.5 g/dL (30.0-36.0); Mean Corpuscular Hemoglobin 27.2 pg (28.0-34.0); Mean Corpuscular Volume 86.4 fl (81-99); Mean Platelet Volume 9.1 fL (7.4-10.4); Monocytes # 0.5 10^3/uL (0.2-0.9); Monocytes % 6.3 %; Neutrophils # 4.81 10^3/uL (1.8-7.7); Neutrophils % 64.6 %; Nucleated Red Blood Cells % 0 %; Platelet Count 304 10^3/cmm (130-400); Red Blood Count 4.34 10^6/uL (4.1-5.3); White Blood Count 7.4 10^3/uL (4.0-10.0)
[2022-08-10 05:13] LABS: Anion Gap 17.1 (5-19); Blood Urea Nitrogen 29 mg/dL (6-20); C Reactive Protein 9.9 mg/L (0.0-4.9); Calcium 8.9 mg/dL (8.5-10.5); Carbon Dioxide 22 mmol/L (22-29); Chloride 108 mmol/L (98-107); Glomerular Filtration Rate 33.1 mL/min (90-130); Glucose 118 mg/dL (65-115); Magnesium 1.9 mg/dL (1.7-2.3); Osmolality Calculated 303 mOsm/kg (285-295); Potassium 4.1 mmol/L (3.5-5.1); Sodium 143 mmol/L (136-145)
[2022-08-10 06:20] LABS: Glucose Point of Care 117 mg/dL (70-110)
[2022-08-10] MEDS: amlodipine 10 mg Tablet PO (06:48)
[2022-08-10] MEDS: metoprolol succinate ER (24 HR) 100 mg Tablet PO (06:48)
[2022-08-10] MEDS: clopidogrel 75 mg Tablet PO (06:48)
--- NOTE | 2022-08-10 07:46 | PC.NURSE ---
Bedside report received from OCTAVIO Flores, at shift change.
[2022-08-10] MEDS: mupirocin oint 22 gm TOPICAL (08:47)
[2022-08-10] MEDS: sennosides-docusate Tablet 1 TAB PO (08:47)
[2022-08-10 10:59] LABS: Glucose Point of Care 192 mg/dL (70-110)
--- NOTE | 2022-08-10 11:17 | P.PN_ITS ---
Subjective Subjective: Currently on meropenem Afebrile Cultures has not been finalized No leukocytosis Patient is tolerating her diet She is much more awake and alert She was eating breakfast when entered the room Vitals/I&O/Wt Last Vital Signs Temp 98.5 F 08/10/22 08:00 Pulse 69 08/10/22 08:00 Resp 16 08/10/22 08:00 BP 148/80 08/10/22 08:00 Pulse Ox 92 08/10/22 08:00 O2 Del Method 08/10/22 08:00 08/09/22 08/10/22 08/10/22 22:59 06:59 14:59 Intake Total 170 / 170 540 / 710 140 / 140 Output Total 1000 / 1000 500 / 500 Balance 170 / 170 -460 / -290 -360 / -360 Weight last 48 hrs Weight 100.244 kg Weight 95.254 kg Physical Exam Narrative: Morbid obese female Bedbound Suprapubic catheter draining dilute urine Abdomen soft Awake and alert Currently on room air Hemodynamically stable Abdomen soft Left-sided weakness Lower extremity misuse atrophy Urinary Catheter Management: Suprapubic: Cath Placed During This Visit: no Reason for Continuing Indwelling Catheter: Chronic Indwelling Urinary Catheter on Admission Data : 08/10/22 04:45 08/10/22 04:45 Micro: Microbiology 08/09/22 09:31 Blood Culture - Preliminary Blood NEGATIVE TO DATE 08/09/22 09:27 Blood Culture - Preliminary Blood NEGATIVE TO DATE A&P Assessment and plan (1) Neurogenic bladder: (2) Recurrent UTI: (3) CKD (chronic kidney disease): Qualifiers: Chronic kidney disease stage: stage 3 (moderate) Chronic kidney disease stage 3 subtype: stage 3b (GFR 30-44) Qualified Code(s): N18.32 - Chronic kidney disease, stage 3b (4) History of ischemic vertebrobasilar artery thalamic stroke: (5) Seizures: Plan Recurrent UTI Am waiting for urine culture to finalize She is afebrile no signs of sepsis No leukocytosis Metabolic encephalopathy related to UTI has improved And plan to discharge her once final urine culture report For now I am not adding PICC line, continue meropenem Full code DVT prophylaxis on board No signs of breakthrough seizure Attestations Medical Necessity Statement*: Will discharge back to skilled nursing after urine culture finalized Time Spent in Patient Care: 35 Coding Level of Care Code Acute Emg Technician for g Fwd Diagnoses Neurogenic bladder N31.9 Recurrent UTI N39.0 CKD (chronic kidney disease) N18.32 Chronic kidney disease stage: stage 3 (moderate) Chronic kidney disease stage 3 subtype: stage 3b (GFR 30-44) History of ischemic vertebrobasilar artery thalamic stroke Z86.73 Seizures R56.9
[2022-08-10] MEDS: FUROsemide 20 mg Tablet PO (12:51)
[2022-08-10] MEDS: insulin lispro 100 unit/1 mL SUBCUT (12:56)
[2022-08-10 17:23] LABS: Glucose Point of Care 103 mg/dL (70-110)
[2022-08-10] MEDS: insulin glargine 100 units/1 mL 20 UNIT SUBCUT (19:41)
[2022-08-10 22:16] LABS: Glucose Point of Care 133 mg/dL (70-110)
[2022-08-11] VITALS (7 sets, daily range): BP systolic 132–153; BP diastolic 72–88; PULSE 50–70; RESP 15–20; TEMP 36.5–37; O2SAT 91–97
[2022-08-11 04:41] LABS: Blood Urea Nitrogen 31 mg/dL (6-20); Calcium 9.3 mg/dL (8.5-10.5); Carbon Dioxide 21 mmol/L (22-29); Chloride 107 mmol/L (98-107); Glomerular Filtration Rate 30.9 mL/min (90-130); Glucose 127 mg/dL (65-115); Osmolality Calculated 298 mOsm/kg (285-295); Sodium 140 mmol/L (136-145)
[2022-08-11 04:42] LABS: Anion Gap 16.2 (5-19); Potassium 4.2 mmol/L (3.5-5.1)
[2022-08-11] MEDS: meropenem 1,000 MG in sodium chloride 0.9% (plus) 50 ML 100 MG IV (05:18)
[2022-08-11] MEDS: amlodipine 10 mg Tablet PO (06:27)
[2022-08-11] MEDS: metoprolol succinate ER (24 HR) 100 mg Tablet PO (06:27)
[2022-08-11] MEDS: clopidogrel 75 mg Tablet PO (06:27)
[2022-08-11] MEDS: mupirocin oint 22 gm TOPICAL (09:17)
[2022-08-11] MEDS: morphine IR 15 mg Tablet PO (09:18)
--- NOTE | 2022-08-11 09:59 | PM.DCS ---
Discharge Providers Date of Admission: 08/09/22 14:08 Date of Discharge: August 11, 2022 Attending Provider at Admission: Hillary Silva MD Attending Provider at Discharge: Hillary Silva MD Primary Care Provider: uV Neil Jr, MD Diagnoses at Discharge Discharge Diagnosis (1) Neurogenic bladder: Status: Inactive Permanent problem details: suprapubic catheter, (2) Recurrent UTI: Status: Inactive (3) CKD (chronic kidney disease): Status: Inactive Qualifiers: Chronic kidney disease stage: stage 3 (moderate) Chronic kidney disease stage 3 subtype: stage 3b (GFR 30-44) Qualified Code(s): N18.32 - Chronic kidney disease, stage 3b (4) History of ischemic vertebrobasilar artery thalamic stroke: Status: Inactive (5) Seizures: Status: Inactive Reason for Visit Reason for Visit: [facility] Hospital Course Hospital Course 57-year-old female who was sent to the hospital for concern of ceftriaxone resistant UTI, she has neurogenic bladder status post suprapubic catheter, recurrent UTI in the past related to E. coli and Proteus no signs of ESBL, she was kept on meropenem throughout her hospitalization, she remained afebrile, no leukocytosis. Her metabolic encephalopathy improved after treatment with meropenem. Her urine culture is showing mixed [place] which I think is chronic colonization of bacteria due to suprapubic catheter. I have decided to discharge her back to half-way on cefpodoxime. She received 3 doses of intramuscular ceftriaxone before she presented to the hospital. Physical Exam Narrative: Patient is eating breakfast Hemodynamically stable Currently on room air Awake and alert No signs of confusion Lower extremity weakness, misuse atrophy Urinary Catheter Management: Suprapubic: Cath Placed During This Visit: no Reason for Continuing Indwelling Catheter: Acute Urinary Retention or Obstruction Discharge Data Studies Completed and Pending Completed Studies During Hospitalization Category Date Time Status CT abdomen pelvis wo con [id number] Routine Cat Scan 08/09/22 16:[address] head wo con* [id number] Stat Cat Scan 08/09/22 09:16 Completed XR chest 1V portable [id number] Stat Exams 08/09/22 09:16 Completed Pending at discharge Category Date Time Status Blood Culture Stat Lab 08/09/22 09:27 Results SARS Covid-2 Antigen Routine Lab 08/11/22 09:35 Uncollected Radiology Impressions Chest X-Ray 08/09/22 09:16 IMPRESSION: No acute cardiopulmonary abnormality. Head CT 08/09/22 09:16 IMPRESSION: 1. No evidence of intracranial hemorrhage or mass effect. 2. Moderate small vessel changes. Moderate parenchymal volume loss. 3. Chronic lacunar infarcts in the internal capsules and thalamus bilaterally. 4. Intracranial vascular calcification. 5. No acute intracranial findings. Abdomen/Pelvis CT 08/09/22 16:56 IMPRESSION: There are no acute concerning abnormalities. Laboratory Results WBC 7.4 10^3/uL (4.0-10.0) 08/10/22 04:45 RBC 4.34 10^6/uL (4.1-5.3) 08/10/22 04:45 Hgb 11.8 g/dL (11.5-15.3) 08/10/22 04:45 Hct 37.5 % (37.0-47.0) 08/10/22 04:45 MCV 86.4 fl (81-99) 08/10/22 04:45 MCH 27.2 pg (28.0-34.0) L 08/10/22 04:45 MCHC 31.5 g/dL (30.0-36.0) 08/10/22 04:45 RDW 13.0 % (12.1-15.1) 08/10/22 04:45 Plt Count 304 10^3/cmm (130-400) 08/10/22 04:45 MPV 9.1 fL (7.4-10.4) 08/10/22 04:45 Neut % (Auto) 64.6 % 08/10/22 04:45 Lymph % (Auto) 24.5 % 08/10/22 04:45 [place] % (Auto) 6.3 % 08/10/22 04:45 Eos % (Auto) 3.2 % 08/10/22 04:45 Baso % (Auto) 0.7 % 08/10/22 04:45 Neut # (Auto) 4.81 10^3/uL (1.8-7.7) 08/10/22 04:45 Lymph # (Auto) 1.8 10^3/uL (0.8-4.8) 08/10/22 04:45 [place] # (Auto) 0.5 10^3/uL (0.2-0.9) 08/10/22 04:45 Eos # (Auto) 0.2 10^3/uL (0.0-0.8) 08/10/22 04:45 Baso # (Auto) 0.1 10^3/uL (0.0-0.1) 08/10/22 04:45 Nucleated RBC % (auto) 0 % 08/10/22 04:45 Nucleated RBCs # 0.0 /100WBC 08/10/22 04:45 Sodium 140 mmol/L (136-145) 08/11/22 03:33 Potassium 4.2 mmol/L (3.5-5.1) 08/11/22 03:33 Chloride 107 mmol/L (98-107) 08/11/22 03:33 Carbon Dioxide 21 mmol/L (22-29) L 08/11/22 03:33 Anion Gap 16.2 (5-19) 08/11/22 03:33 BUN 31 mg/dL (6-20) H 08/11/22 03:33 Creatinine 1.7 mg/dL (0.5-0.9) H 08/11/22 03:33 GFR Calculation 30.9 mL/min (90-130) L 08/11/22 03:33 Glucose 127 mg/dL (65-115) H 08/11/22 03:33 POC Glucose 133 mg/dL (70-110) H 08/10/22 21:58 Calculated Osmolality 298 mOsm/kg (285-295) H 08/11/22 03:33 Lactic Acid 1.4 mmol/L (0.5-2.2) 08/09/22 10:02 Calcium 9.3 mg/dL (8.5-10.5) 08/11/22 03:33 Magnesium 1.9 mg/dL (1.7-2.3) 08/10/22 04:45 Total Bilirubin 0.2 mg/dL (0.15-1.2) 08/09/22 08:44 AST 12 U/L (0-32) 08/09/22 08:44 ALT 6 U/L (0-33) 08/09/22 08:44 Alkaline Phosphatase 87 U/L (35-105) 08/09/22 08:44 C-Reactive Protein 9.9 mg/L (0.0-4.9) H 08/10/22 04:45 Total Protein 7.5 g/dL (6.6-8.7) 08/09/22 08:44 Albumin 3.7 g/dL (3.5-5.2) 08/09/22 08:44 Globulin 3.8 g/dL (1.3-4.6) 08/09/22 08:44 Lipase 18 U/L (13-60) 08/09/22 08:44 Procalcitonin 0.23 ng/mL (0-0.5) 08/09/22 08:40 Urine Color Red (Yellow) 08/09/22 10:40 Urine Appearance Cloudy (CLEAR) A 08/09/22 10:40 Urine pH 6 (5-7) 08/09/22 10:40 Ur Specific [place] 1.015 (1.005-1.030) 08/09/22 10:40 Urine Protein 3+ (Negative) H 08/09/22 10:40 Urine Glucose (UA) Norm (Normal) 08/09/22 10:40 Urine Ketones Negative (Negative) 08/09/22 10:40 Urine Blood 3+ (Negative) H 08/09/22 10:40 Urine Nitrate Positive (Negative) H 08/09/22 10:40 Urine Bilirubin Neg (Negative) 08/09/22 10:40 Urine Urobilinogen Neg mg/dL (Negative) 08/09/22 10:40 Ur Leukocyte Esterase 2+ (Negative) H 08/09/22 10:40 Urine RBC Too numerous to cnt /hpf (0-2) H 08/09/22 10:40 Urine WBC Too numerous to cnt /hpf (0-5) H 08/09/22 10:40 Ur Squamous Epith Cells None /hpf (0-5) 08/09/22 10:40 Amorphous Sediment Not Reportable 08/09/22 10:40 Urine Bacteria 2+ /hpf (NONE) H 08/09/22 10:40 Vitals Last Vital Signs Temp 98.2 F 08/11/22 07:57 Pulse 67 08/11/22 08:00 Resp 20 H 08/11/22 09:18 BP 143/79 08/11/22 07:57 Pulse Ox 93 08/11/22 08:00 O2 Del Method 08/11/22 08:00 Discharge Plan Discharge Patient Disposition: Xfer SNF Condition: Stable Prescriptions: New cefpodoxime 200 mg tablet 200 mg PO BID Qty: 10 0RF Rx Instructions: must administer with a meal/food Continued Januvia 50 mg tablet 50 mg PO DAILY@07 methenamine hippurate [Hiprex] 1 gram tablet 1 g PO BID ascorbic acid (vitamin C) 1,000 mg tablet 1,000 mg PO BID escitalopram oxalate 20 mg tablet 20 mg PO DAILY@07 solifenacin [Vesicare] 5 mg tablet 5 mg PO DAILY@07 topiramate [Topamax] 100 mg tablet 100 mg PO DAILY@07 bisacodyl 10 mg suppository 10 mg ND DAILY PRN (Reason: Constipation) Lantus Solostar U-100 Insulin 100 unit/mL (3 mL) insulin pen 22 unit SUBCUT BEDTIME@19 hydrocodone-acetaminophen 5-325 mg tablet 1 tab PO Q4H PRN (Reason: Pain) magnesium hydroxide [Milk of Magnesia] 400 mg/5 mL suspension 30 ml PO DAILY PRN (Reason: Constipation) mupirocin 2 % ointment See Rx Instructions .ROUTE .COMPLEX Rx Instructions: apply topically to stoma site and cover with a split sponge daily nystatin 100,000 unit/gram powder See Rx Instructions .ROUTE .COMPLEX Rx Instructions: apply to upper back groin topically every 8 hours as needed for redness ondansetron HCl 4 mg tablet 4 mg PO Q6H PRN (Reason: Nausea) cyclobenzaprine 10 mg tablet 10 mg PO Q8H PRN (Reason: muscle spasms) (DME) blood-glucose meter [Accu-Chek Gaby Plus Meter] [facility] [place] [facility] See Rx Instructions .ROUTE .MEDSUPPLY Qty: 1 0RF Rx Instructions: As directed ([facility]) Accu-Chek Gaby Plus test strp Strip See Rx Instructions .ROUTE .MEDSUPPLY Qty: 10 0RF Rx Instructions: As directed ([facility] [place]) lancets [Accu-Chek Multiclix Lancet] [facility] [place] [facility] See Rx Instructions .ROUTE .MEDSUPPLY Qty: 100 0RF Rx Instructions: As directed metoprolol succinate 200 mg tablet extended release 24 hr 200 mg PO DAILY@07 clopidogrel 75 mg Tablet 75 mg PO DAILY@07 amlodipine 10 mg Tablet 10 mg PO DAILY@07 sennosides [senna] 8.6 mg Tablet 8.6 mg PO Q12H PRN (Reason: Constipation) tramadol 50 mg Tablet 50 mg PO Q6H PRN (Reason: Pain) polyethylene glycol 3350 [Miralax] 17 gram/dose Powder 17 g PO DAILY PRN (Reason: Constipation) pravastatin 80 mg Tablet 80 mg PO DAILY@19 Tylenol 325 mg Tablet 650 mg PO Q4H PRN (Reason: Pain) Xanax 0.5 mg Tablet 0.5 mg PO .ONCE Enema Disposable 19-7 gram/118 mL Enema 118 ml ND DAILY PRN (Reason: Constipation) Renacidin 1,980.6 mg-59.4 mg-980.4mg/30mL solution See Rx Instructions .ROUTE .COMPLEX Rx Instructions: 30 cc via irrigation every day and evening shift Discontinued ceftriaxone 1 gram recon soln 1 g IM DAILY Discharge Orders: Discharge Order (Routine); Ordered 08/11/22 Ordered By: Hillary Silva Referrals: Vu Neil Jr, MD [Primary Care Provider] - 7-10 days Discharge Attestations Time Spent in Discharge Care*: less than 30 min Status at Discharge: Cognitive status at discharge: cognitively intact, Behavioral status at discharge: cooperative, Quality Metrics Clinical Quality Measures [ No reported AMI, CVA or VTE this stay] Coding Level of Care Code Acute Chg FW DC note Diagnoses Neurogenic bladder N31.9 Recurrent UTI N39.0 CKD (chronic kidney disease) N18.32 Chronic kidney disease stage: stage 3 (moderate) Chronic kidney disease stage 3 subtype: stage 3b (GFR 30-44) History of ischemic vertebrobasilar artery thalamic stroke Z86.73 Seizures R56.9
[2022-08-11 11:00] LABS: Glucose Point of Care 141 mg/dL (70-110)
[2022-08-11 11:22] LABS: SARS Covid-2 Antigen negative (Negative)
--- NOTE | 2022-08-11 13:49 | PC.NURSE ---
dc'd pt piv, pt removed one iv herself prior to my arrival to room. foely emptied 500ml. Suprapubic catheter in place per nursing home treatment of neurogenic bladder. report called to Mayra. No further questions from her. Pt left via ambulance, stable for discharge, packet sent with patient.
== END 2022-08-11 13:48 | disposition skilled nursing facility (03) ==
LOC: ER 10:27 → MEDSURG 14:07
PROVIDERS: Admitting Provider Internal Medicine; Emergency Provider Family Medicine; PCP Family Medicine; Visit Provider Internal Medicine
DX: N31.9 Neuromuscular dysfunction of bladder, unspecified (principal); N39.0 Urinary tract infection, site not specified; Z86.73 Personal history of transient ischemic attack (TIA), and cerebral infarction without residual deficits; R56.9 Unspecified convulsions; E11.22 Type 2 diabetes mellitus with diabetic chronic kidney disease; I12.9 Hypertensive chronic kidney disease with stage 1 through stage 4 chronic kidney disease, or unspecified chronic kidney disease; N18.32 Chronic kidney disease, stage 3b; E66.9 Obesity, unspecified; Z68.31 Body mass index [BMI] 31.0-31.9, adult; Z87.891 Personal history of nicotine dependence; Z79.4 Long term (current) use of insulin
CPT/HCPCS: 36415; 36416; 70450; 71045; 74176; 80048; 80053; 81001; 82962; 83605; 83690; 83735; 84145; 85025; 86140; 87040; 87086; 87205; 87426; 93005; 96365; 96367; 96372; 99291; G0378; J0743; J1644; J1815; J2185

== ENCOUNTER 2022-09-18 21:47 | Inpatient (IN) | payer MEDICARE, MEDICAID, SELFPAY ==
[2022-09-18 21:48] VITALS: BP 124/80; PULSE 79; RESP 19; TEMP 36.9; O2SAT 95; BMI 30.5
--- NOTE | 2022-09-18 21:51 | CTR_ITS ---
PROCEDURE INFORMATION: Exam: CTA Head With Contrast, Arteriography Exam date and time: 09/18/2022 10:10 PM Age: 57 years old Clinical indication: Drowsiness or somnolence and speech disturbance; Prior surgery; Surgery type: Retina repair; Patient HX: Patient from snf with slurred speech and lethargy. History of CVA. ; Additional info: AMS TECHNIQUE: Imaging protocol: Computed tomographic angiography of the head with contrast. Exam focused on the arteries. 3D rendering (Not supervised by radiologist): MIP and/or 3D reconstructed images were created by the technologist. Radiation optimization: All CT scans at this facility use at least one of these dose optimization techniques: automated exposure control; mA and/or kV adjustment per patient size (includes targeted exams where dose is matched to clinical indication); or iterative reconstruction. Contrast material: OMNI 350; Contrast volume: 100 ml; Contrast route: INTRAVENOUS (IV); COMPARISON: CT angio headneck* [id number] 10/12/2020 7:46 PM RADIATION DOSE METRICS: Total DLP (mGy-cm): 1081.52 FINDINGS: ANTERIOR CIRCULATION: Right internal carotid artery: Intracranial segment is patent with no significant stenosis. No aneurysm. Right middle cerebral artery: No occlusion or significant stenosis. No aneurysm. Right anterior cerebral artery: No occlusion or significant stenosis. No aneurysm. Left internal carotid artery: Intracranial segment is patent with no significant stenosis. No aneurysm. Left middle cerebral artery: No occlusion or significant stenosis. No aneurysm. Left anterior cerebral artery: No occlusion or significant stenosis. No aneurysm. POSTERIOR CIRCULATION: Right vertebral artery: No occlusion or significant stenosis. No aneurysm. Left vertebral artery: No occlusion or significant stenosis. No aneurysm. Basilar artery: No occlusion or significant stenosis. No aneurysm. Right posterior cerebral artery: No occlusion or significant stenosis. No aneurysm. Left posterior cerebral artery: No occlusion or significant stenosis. No aneurysm. Brain: There is moderate cerebral atrophy. There is moderate diffuse heterogeneity of the white matter attenuation, consistent with chronic white matter ischemic changes. Negative for intracranial hemorrhage. Negative for midline shift of the brain. Preservation of driscoll and white matter interfaces. Gliosis changes in the thalami bilaterally. Cerebral ventricles: No ventriculomegaly. Bones/joints: Unremarkable. No acute fracture. Soft tissues: Unremarkable. PROCEDURE INFORMATION: Exam: CTA Neck With Contrast Exam date and time: 09/18/2022 10:10 PM Age: 57 years old Clinical indication: Drowsiness or somnolence and speech disturbance; Prior surgery; Surgery type: Retina repair; Patient HX: Patient from snf with slurred speech and lethargy. History of CVA. ; Additional info: AMS TECHNIQUE: Imaging protocol: Computed tomographic angiography of the neck with contrast. 3D rendering (Not supervised by radiologist): MIP and/or 3D reconstructed images were created by the technologist. Radiation optimization: All CT scans at this facility use at least one of these dose optimization techniques: automated exposure control; mA and/or kV adjustment per patient size (includes targeted exams where dose is matched to clinical indication); or iterative reconstruction. Contrast material: OMNI 350; Contrast volume: 100 ml; Contrast route: INTRAVENOUS (IV); COMPARISON: CT angio headneck* [id number] 10/12/2020 7:46 PM RADIATION DOSE METRICS: Total DLP (mGy-cm): 1081.52 FINDINGS: Right common carotid artery: No stenosis. No dissection or occlusion. Right internal carotid artery: Small volume calcified plaque proximal right ICA. Mild stenosis. No dissection. Right external carotid artery: No occlusion or stenosis of the origin. Left common carotid artery: No stenosis. No dissection or occlusion. Left internal carotid artery: Small volume calcified plaque proximal left ICA. Minimal stenosis. No dissection. Left external carotid artery: No occlusion or stenosis of the origin. Right vertebral artery: No stenosis. No dissection or occlusion. Left vertebral artery: No stenosis. No dissection or occlusion. Soft tissues: Normal. No significant soft tissue swelling. Bones/joints: No acute fracture. CT/CT angio headne* [id number] IMPRESSION: Negative for intracranial large arterial vessel occlusion. IMPRESSION: 1. Less than 50% carotid artery stenosis. 2. Negative for vascular occlusion in the neck. REFERENCES: NASCET CRITERIA. The degree of stenosis in the cervical segment of the internal carotid artery is based on NASCET criteria. Normal is no stenosis. Mild is less than 50% stenosis. Moderate is 50-69% stenosis. Severe is 70% to 99% stenosis. Total occlusion is no detectable patent lumen.
--- NOTE | 2022-09-18 21:51 | XRR_ITS ---
PROCEDURE INFORMATION: Exam: XR Chest Exam date and time: 09/18/2022 10:56 PM Age: 57 years old Clinical indication: Other: AMS TECHNIQUE: Imaging protocol: Radiologic exam of the chest. Views: 1 view. COMPARISON: CR XR chest 1V portable [id number] 08/09/2022 9:41 AM FINDINGS: Lungs: Unremarkable. No consolidation. Pleural spaces: Unremarkable. No pleural effusion. No pneumothorax. Heart/Mediastinum: Unremarkable. No cardiomegaly. Bones/joints: Unremarkable. XR/XR chest 1V portable [id number] IMPRESSION: No acute findings.
--- NOTE | 2022-09-18 21:52 | ECG_ITS ---
[facility] Test Date: 2022-09-18 Pat Name: Erika Shen Department: Room: Gender: Female Binding Nicker: : 1965 Requested By: Ariana Lucero Order Number: [id number] Anton MD: Ramu Mccracken M.D. Measurements Intervals [place] Rate: 79 P: 16 [place]: 165 QRS: -30 QRSD: 85 T: 8 QT: 409 QTc: 469 Interpretive Statements SINUS RHYTHM POSSIBLE LEFT ATRIAL ENLARGEMENT [-0.1mV P-WAVE IN V1/V2] BORDERLINE LEFT AXIS DEVIATION [QRS AXIS < -20] LOW QRS VOLTAGE IN PRECORDIAL LEADS [QRS DEFLECTION < 1.0 mV IN CHEST LEADS] POSSIBLE LEFT VENTRICULAR HYPERTROPHY [VOLTAGE CRITERIA PLUS LAE OR QRS WIDENING] Compared to ECG 08/09/2022 09:56:20 Low QRS voltage now present Electronically Signed On 09-21-2022 6:30:29 [employer] by Ramu Mccracken M.D. [email or web address]
--- NOTE | 2022-09-18 21:54 | W.ED.NEUROSD ---
HPI - Neuro Symptoms/Deficit General: Chief Complaint: Altered Mental Status Stated Complaint: SLURRED SPEECH Time Seen by Provider: 09/18/22 21:48 Source: EMS Mode of arrival: EMS Limitations: altered mental status History of Present Illness: 57-year-old female has a history of multiple strokes in the past she currently lives at senior living and is bedbound per senior living patient tonight has been having increased altered mental status and slurred speech state at her baseline she is typically talkative states that tonight since 6 PM she has had more difficult time talking and increasing slurred speech she is able to tell me her name and where she lives it is hard to understand her she has chronic left-sided weakness. She denies any pain anywhere denies any fevers. Review of Systems General: Reports: ROS unobtainable due to mental status PFSH ED PFSH: Medical History Acute ischemic multifocal multiple vascular territories stroke EFREN (acute kidney injury) CKD (chronic kidney disease) CVA (cerebral vascular accident) left hemiparesis Cystitis Dehydration Depression Diabetes mellitus Diabetes mellitus, type II a1c 10/2020 12.7 Dyslipidemia Feeling grief Groin ulcer Headache History of ischemic vertebrobasilar artery thalamic stroke History of seizure on topamax History of stroke Hypertension hypertensive emergency 10/2020 Hypertension Left pontine stroke Macular degeneration Neurogenic bladder suprapubic catheter, Obesity Obstructive pyelonephritis Recurrent UTI Requires assistance with activities of daily living (ADL) Seizures TIA (transient ischemic attack) Ulcer of sacral region, stage 1 x 2, one on each buttock Urethral pain UTI (urinary tract infection) Surgical History H/O detached retina repair H/O oral surgery History of suprapubic catheter came out in 2019, not replaced S/P appendectomy S/P cataract surgery S/P cholecystectomy S/P knee surgery S/P shoulder surgery Family History Father Cancer Lymphoma Mother CAD (coronary artery disease) Diabetes Chronic kidney disease (CKD) Social History Smoking and tobacco status: former smoker Alcohol intake: never Caregiver/support person: No Lives independently: No Marital status: Marital status details: 12/17/20 Current occupational status: disabled Physical Exam Const: COMMON NORMALS: negative for patient oriented x3 GENERAL APPEARANCE: ill appearing HENMT: COMMON NORMALS: normocephalic and atraumatic HEAD & SCALP: normocephalic and atraumatic Eye: OTHER: gaze to the right Neck/C-Spine: COMMON NORMALS: full ROM and supple Chest: COMMONS NORMALS: normal inspection of the chest and normal palpation of entire chest wall Resp: COMMON NORMALS: normal respiratory effort, No retractions, No use of accessory muscles and clear to auscultation bilaterally AUSCULTATION: clear to auscultation bilaterally Cardio: COMMON NORMALS: regular rate, regular rhythm and No murmurs present (Cardio) RATE: regular rate RHYTHM: regular rhythm GI: COMMON NORMALS: Normal to inspection, nondistended, normoactive bowel sounds present, Soft to palpation, non-tender and no masses PALPATION: Yes Soft to palpation Extremity: COMMON NORMALS: normal to inspection Neuro: COMMON NORMALS: negative for patient oriented x3 OTHER: Left-sided weakness that is chronic in nature she does have some slurred speech as well. Psych: COMMON NORMALS: mental status grossly normal, Normal thought process present and cooperative THOUGHT PROCESS: Normal thought process present Skin: COMMON NORMALS: no rashes or lesions noted and no wounds GENERAL SKIN EXAM: no rashes or lesions noted Course Vital Signs: Vital signs: Vital Signs Temperature 98.5 F 09/18/22 21:48 Pulse Rate 74 09/18/22 23:30 Respiratory Rate 17 09/18/22 23:30 Blood Pressure 138/74 09/18/22 23:30 Pulse Oximetry 96 09/18/22 23:30 Oxygen Delivery Me thod 09/18/22 23:04 MDM - Neuro Symptoms/Deficit Medical Decision Making Patient presents here with altered mental status could be due to UTI CT showed no acute findings she has had a history of stroke she is also dehydrated with acute injury I spoke to hospitalist will admit at this time. Lab Data 09/18/22 22:00 09/18/22 22:34 Radiology Impressions Chest X-Ray 09/18/22 21:51 IMPRESSION: No acute findings. Head/Neck CTA 09/18/22 21:51 IMPRESSION: Negative for intracranial large arterial vessel occlusion. IMPRESSION: 1. Less than 50% carotid artery stenosis. 2. Negative for vascular occlusion in the neck. REFERENCES: NASCET CRITERIA. The degree of stenosis in the cervical segment of the internal carotid artery is based on NASCET criteria. Normal is no stenosis. Mild is less than 50% stenosis. Moderate is 50-69% stenosis. Severe is 70% to 99% stenosis. Total occlusion is no detectable patent lumen. Laboratory Results WBC 10.8 10^3/uL (4.0-10.0) H 09/18/22 22:00 RBC 4.38 10^6/uL (4.1-5.3) 09/18/22:00 Hgb 11.7 g/dL (11.5-15.3) 09/18/22:00 Hct 37.1 % (37.0-47.0) 09/18/22:00 MCV 84.7 fl (81-99) 09/18/22:00 MCH 26.7 pg (28.0-34.0) L 09/18/22: MCHC 31.5 g/dL (30.0-36.0) 09/18/22:00 RDW 13.3 % (12.1-15.1) 09/18/22:00 Plt Count 307 10^3/cmm (130-400) 09/18/22:00 MPV 9.9 fL (7.4-10.4) 09/18/22 22:00 Neut % (Auto) 82.0 % 09/18/22:00 Lymph % (Auto) 9.8 % 09/18/22:00 [place] % (Auto) 6.7 % 09/18/22 22:00 Eos % (Auto) 0.5 % 09/18/22:00 Baso % (Auto) 0.3 % 09/18/22 22:00 Neut # (Auto) 8.85 10^3/uL (1.8-7.7) H 09/18/22 22:00 Lymph # (Auto) 1.1 10^3/uL (0.8-4.8) 09/18/22 22:00 [place] # (Auto) 0.7 10^3/uL (0.2-0.9) 09/18/22 22:00 Eos # (Auto) 0.1 10^3/uL (0.0-0.8) 09/18/22 22:00 Baso # (Auto) 0.0 10^3/uL (0.0-0.1) 09/18/22 22:00 Nucleated RBC % (auto) 0 % 09/18/22 22:00 Nucleated RBCs # 0.0 /100WBC 09/18/22 22:00 PT 14.50 SECONDS (12.1-14.9) 09/18/22 22:42 INR 1.09 (0.8-1.2) 09/18/22 22:42 Sodium 139 mmol/L (136-145) 09/18/22 22:34 Potassium 3.8 mmol/L (3.5-5.1) 09/18/22 22:34 Chloride 107 mmol/L (98-107) 09/18/22 22:34 Carbon Dioxide 19 mmol/L (22-29) L 09/18/22 22:34 Anion Gap 16.8 (5-19) 09/18/22 22:34 BUN 57 mg/dL (6-20) H 09/18/22 22:34 Creatinine 3.2 mg/dL (0.5-0.9) H 09/18/22 22:34 GFR Calculation 14.9 mL/min (90-130) L 09/18/22 22:34 Glucose 205 mg/dL (65-115) H 09/18/22 22:34 Calculated Osmolality 310 mOsm/kg (285-295) H 09/18/22 22:34 Calcium 8.5 mg/dL (8.5-10.5) 09/18/22 22:34 Magnesium 2.1 mg/dL (1.7-2.3) 09/18/22 22:34 Total Bilirubin 0.2 mg/dL (0.15-1.2) 09/18/22 22:34 AST 7 U/L (0-32) 09/18/22 22:34 ALT < 5 U/L (0-33) 09/18/22 22:34 Alkaline Phosphatase 75 U/L (35-105) 09/18/22 22:34 Ammonia 31 umol/L (11-51) 09/18/22 22:34 Troponin T Baseline 28 ng/L (0-10) H 09/18/22 22:34 Total Protein 6.8 g/dL (6.6-8.7) 09/18/22 22:34 Albumin 2.9 g/dL (3.5-5.2) L 09/18/22 22:34 Globulin 3.9 g/dL (1.3-4.6) 09/18/22 22:34 TSH 1.90 uIU/mL (0.27-4.20) 09/18/22 22:34 Urine Color Yellow (Yellow) 09/18/22 22:43 Urine Appearance Hazy (CLEAR) A 09/18/22 22:43 Urine pH 7 (5-7) 09/18/22 22:43 Ur Specific [place] 1.005 (1.005-1.030) 09/18/22 22:43 Urine Protein 3+ (Negative) H 09/18/22 22:43 Urine Glucose (UA) Norm (Normal) 09/18/22 22:43 Urine Ketones 1+ (Negative) H 09/18/22 22:43 Urine Blood 3+ (Negative) H 09/18/22 22:43 Urine Nitrate Positive (Negative) H 09/18/22 22:43 Urine Bilirubin Neg (Negative) 09/18/22 22:43 Urine Urobilinogen Norm mg/dL (Negative) 09/18/22 22:43 Ur Leukocyte Esterase 2+ (Negative) H 09/18/22 22:43 Urine RBC Too numerous to cnt /hpf (0-2) H 09/18/22 22:43 Urine WBC Too numerous to cnt /hpf (0-5) H 09/18/22 22:43 Ur Squamous Epith Cells 0-4 /hpf (0-5) H 09/18/22 22:43 Amorphous Sediment Not Reportable 09/18/22:43 Urine Bacteria 4+ /hpf (NONE) H 09/18/22 22:43 EKG Data EKG 1: I personally reviewed and interpreted this EKG as follows: EKG interpretation date: 09/18/22 EKG interpretation time: 21:52 Interpretation: nsr hr [address] or t wave abnormalities qrs 85 qtc 443 Discharge Plan Discharge Patient Disposition: Admitted As Inpatient Admit Provider: Emily Palacios Clinical Impression: Altered mental status, Acute cystitis, Acute kidney injury Condition: Stable Coding Level of Care Code ED Material Requirements Planning Manager for Chg Fwd Exam Comprehensive
[2022-09-18 22:07] LABS: Basophils % 0.3 %; Eosinophils # 0.1 10^3/uL (0.0-0.8); Eosinophils % 0.5 %; Hematocrit 37.1 % (37.0-47.0); Hemoglobin 11.7 g/dL (11.5-15.3); Lymphocytes # 1.1 10^3/uL (0.8-4.8); Lymphocytes % 9.8 %; Mean Corpuscular HGB Conc 31.5 g/dL (30.0-36.0); Mean Corpuscular Hemoglobin 26.7 pg (28.0-34.0); Mean Corpuscular Volume 84.7 fl (81-99); Mean Platelet Volume 9.9 fL (7.4-10.4); Monocytes # 0.7 10^3/uL (0.2-0.9); Monocytes % 6.7 %; Neutrophils # 8.85 10^3/uL (1.8-7.7); Nucleated Red Blood Cells % 0 %; Platelet Count 307 10^3/cmm (130-400); Red Blood Count 4.38 10^6/uL (4.1-5.3); Red Cell Distribution Width 13.3 % (12.1-15.1); White Blood Count 10.8 10^3/uL (4.0-10.0)
[2022-09-18 22:08] VITALS: BP 107/79; PULSE 85; RESP 16; O2SAT 96
[2022-09-18] MEDS: iohexol 350 mg/mL 500 mL Btl (per mL) IV (22:25)
[2022-09-18 22:37] VITALS: BP 124/80; PULSE 75; RESP 15; O2SAT 97
[2022-09-18 22:55] LABS: INR 1.09 (0.8-1.2)
[2022-09-18 22:56] LABS: Ammonia 31 umol/L (11-51)
[2022-09-18 22:57] LABS: Troponin(5th) Baseline 28 ng/L (0-10)
[2022-09-18 23:04] VITALS: BP 124/77; PULSE 77; RESP 19; O2SAT 95
[2022-09-18 23:06] LABS: Alanine Aminotransferase < 5 U/L (0-33); Albumin Level 2.9 g/dL (3.5-5.2); Alkaline Phosphatase 75 U/L (35-105); Anion Gap 16.8 (5-19); Aspartate Amino Transferase 7 U/L (0-32); Blood Urea Nitrogen 57 mg/dL (6-20); Calcium 8.5 mg/dL (8.5-10.5); Carbon Dioxide 19 mmol/L (22-29); Chloride 107 mmol/L (98-107); Globulin 3.9 g/dL (1.3-4.6); Glomerular Filtration Rate 14.9 mL/min (90-130); Glucose 205 mg/dL (65-115); Magnesium 2.1 mg/dL (1.7-2.3); Osmolality Calculated 310 mOsm/kg (285-295); Potassium 3.8 mmol/L (3.5-5.1); Sodium 139 mmol/L (136-145); Total Bilirubin 0.2 mg/dL (0.15-1.2); Total Protein 6.8 g/dL (6.6-8.7)
[2022-09-18 23:09] LABS: Urine Appearance Hazy (CLEAR); Urine Color Yellow (Yellow); pH Urine 7 (5-7)
[2022-09-18 23:10] LABS: Add Urine Microscopic? YES; Bilirubin Urine Neg (Negative); Blood Urine 3+ (Negative); Glucose Urine UA Norm (Normal); Ketones Urine 1+ (Negative); Leukocyte Esterase Urine 2+ (Negative); Nitrate Urine Positive (Negative); Protein Urine 3+ (Negative); Specific Gravity, Urine 1.005 (1.005-1.030); Urobilinogen Urine Norm (Negative)
[2022-09-18 23:11] LABS: Add Urine Culture? Yes; Bacteria Urine 4+ /hpf; RBC Urine TOO NUMEROUS TO CNT /hpf (0-2); Squamous Epithelial Cell Urine 0-4 /hpf (0-5); WBC Urine TOO NUMEROUS TO CNT /hpf (0-5)
[2022-09-18 23:15] VITALS: BP 124/77; PULSE 76; RESP 17; O2SAT 95
[2022-09-18] MEDS: cefTRIAXone 1,000 MG in sodium chloride 0.9% (plus) 50 ML 100 MG IV (23:20)
[2022-09-18] MEDS: sodium chloride 0.9% 1,000 ML 999 ML IV (23:20)
[2022-09-18 23:30] VITALS: BP 138/74; PULSE 74; RESP 17; O2SAT 96
--- NOTE | 2022-09-18 23:52 | ECG_ITS ---
[facility] Test Date: 2022-09-19 Pat Name: Erika Shen Department: Room: 253 Gender: Female Business Services Intern: : 1965 Requested By: Ariana Lucero Order Number: [id number] Anton MD: Ramu Mccracken M.D. Measurements Intervals [place] Rate: 73 P: 21 MT: 175 QRS: -26 QRSD: 89 T: 3 QT: 418 QTc: 461 Interpretive Statements SINUS RHYTHM BORDERLINE LEFT AXIS DEVIATION [QRS AXIS < -20] VOLTAGE CRITERIA FOR LVH [MEETS CRITERIA IN ONE OF: R(aVL), S(V1), R(V5), R(V5/V6)+S(V1)] Compared to ECG 09/18/2022 21:52:29 No significant changes Electronically Signed On 09-21-2022 6:36:21 POLICE DISTRICT SWITCHBOARD OPERATOR by Ramu Mccracken M.D. [id number]
[2022-09-19] VITALS (11 sets, daily range): BP systolic 139–165; BP diastolic 77–83; PULSE 74–115; RESP 14–18; TEMP 36.5–37.2; O2SAT 91–96; BMI 30.8
[2022-09-19 00:11] LABS: ABG PCO2 45.4 mmHg (35-45); ABG PH Result 7.26 (7.35-7.45); Arterial Blood Gas Hematocrit 33.7 % (37-47); Base Excess ABG -6.4 mmol/L (-2.0-2.0); Blood Gas Allen Test Pos; Blood Gas Operator Identificat WALCI; Blood Gas Sample Site Brachial, right; Blood Gas Sample Type Arterial; HCO3 ABG 20.4 mmol/L (22-26); Oxygen Device NC; PO2 ABG 72.1 mmHg (80.0-100.0)
[2022-09-19 00:35] LABS: Troponin 5 2HR 29.17 ng/L (0-10)
[2022-09-19 00:38] LABS: Troponin 5 2HR Delta 1.17 ABS# (0-10)
--- NOTE | 2022-09-19 00:51 | PC.NURSE ---
ADMIT NOTE Pt received to room from ER at 0030. Eyes open to name but could not get her to verbally respond to me or follow commands. O2 in place at 3l per NC. VS done and WNL. IV patent to right forearm. Received IV antibiotics in the ER. Has chronic suprapubic catheter in place. Urine cloudy with sediment noted. Some redness to buttocks. Repositioned to right side. Oral care given. Mouth dry and sticky secretions removed. Lanolin ordered for lips
--- NOTE | 2022-09-19 01:03 | PM.HP ---
Providers/Chief Complaint Admitting Physician: Emily Palacios MD Primary Care Provider: Vu Neil Jr, MD Chief Complaint: SLURRED SPEECH History of Present Illness Erika Shen is a 57 year old female who is bedbound, long-term resident, suprapubic catheter which gets replaced every month as per the patient presented today with altered mental status. At the baseline she is conversant alert oriented x3, however noted to be more lethargic than at baseline therefore sent to the emergency room. They are concerned she may have a UTI. Apparently her suprapubic catheter has been functioning well. She does get frequent Renacidin flushes to keep the catheter functioning well, uncertain if this has been happening recently. There is no history of fever chills cough chest pain dyspnea palpitations abdominal pain nausea vomiting or diarrhea. Review of Systems General: Reports: ROS unobtainable due to mental status Medications/Allergies Home Medications Medication Instructions Recorded Confirmed Last Taken Type escitalopram oxalate 20 mg tablet 20 mg PO DAILY@12/01/19 08/09/22 08/09/22 History solifenacin 5 mg tablet (Vesicare) 5 mg PO DAILY@12/01/19 08/09/22 08/09/22 History topiramate 100 mg tablet (Topamax) 100 mg PO DAILY@12/01/19 08/09/22 08/09/22 History cyclobenzaprine 10 mg tablet 10 mg PO Q8H PRN muscle spasms 10/12/20 08/09/22 12/22/20 History blood sugar diagnostic (Accu-Chek #10 ea 10/15/20 08/09/22 Unknown Rx Gaby Plus test strips) blood-glucose meter (Accu-Chek #1 ea 10/15/20 08/09/22 Unknown Rx Gaby Plus Meter) lancets (Accu-Chek Multiclix #100 ea 10/15/20 08/09/22 Unknown Rx Lancet) metoprolol succinate 200 mg 200 mg PO DAILY@12/17/20 08/09/22 08/09/22 History tablet,extended release 24 hr ascorbic acid (vitamin C) 1,000 mg 1,000 mg PO BID 05/01/21 08/09/22 08/09/22 History tablet methenamine hippurate 1 gram 1 g PO BID 06/08/09/22 08/09/22 History tablet (Hiprex) sitagliptin 50 mg tablet (Januvia) 50 mg PO DAILY@05/01/21 08/09/22 08/09/22 History bisacodyl 10 mg rectal suppository 10 mg CO DAILY PRN Constipation 08/03/21 08/09/22 Unknown History insulin glargine 100 unit/mL (3 22 unit SUBCUT BEDTIME@08/03/21 08/09/22 08/08/22 History mL) subcutaneous pen (Lantus Solostar U-100 Insulin) hydrocodone 5 mg-acetaminophen 325 1 tab PO Q4H PRN Pain 11/20/21 08/09/22 08/09/22 08:01 History mg tablet polyethylene glycol 3350 17 17 g PO DAILY PRN Constipation 12/29/21 08/09/22 12/26/21 History gram/dose oral powder (Miralax) sennosides 8.6 mg tablet (senna) 8.6 mg PO Q12H PRN Constipation 12/29/21 08/09/22 Unknown History tramadol 50 mg tablet 50 mg PO Q6H PRN Pain 12/29/21 08/09/22 Unknown History amlodipine 10 mg tablet 10 mg PO DAILY@01/05/22 08/09/22 08/09/22 History clopidogrel 75 mg tablet 75 mg PO DAILY@01/05/22 08/09/22 08/09/22 History magnesium hydroxide 400 mg/5 mL 30 ml PO DAILY PRN Constipation 07/10/22 08/09/22 Unknown History oral suspension (Milk of Magnesia) mupirocin 2 % topical ointment See Rx Instructions .Route .COMPLEX 07/10/22 08/09/22 Unknown History nystatin 100,000 unit/gram topical See Rx Instructions .Route .COMPLEX 07/10/22 08/09/22 Unknown History powder ondansetron HCl 4 mg tablet 4 mg PO Q6H PRN Nausea 07/10/22 08/09/22 Unknown History acetaminophen 325 mg tablet 650 mg PO Q4H PRN Pain 08/09/22 08/09/22 Unknown History (Tylenol) alprazolam 0.5 mg tablet (Xanax) 0.5 mg PO .ONCE 08/09/22 08/09/22 08/07/22 History citric ac 1980.6 mg-glucono 59.4 See Rx Instructions .Route .COMPLEX 08/09/22 08/09/22 Unknown History mg-mag carb 980.4 mg/30 mL irrig.soln (Renacidin) pravastatin 80 mg tablet 80 mg PO DAILY@19 08/09/22 08/09/22 08/08/22 History sodium phosphates 19 gram-7 118 ml CO DAILY PRN Constipation 08/09/22 08/09/22 Unknown History gram/118 mL enema (Enema Disposable) cefpodoxime 200 mg tablet 200 mg PO BID #10 tabs 08/11/22 Unknown Rx Allergies Allergy/AdvReac Type Severity Reaction Status Date / Time levofloxacin [From Levaquin] Allergy NA Verified 08/09/22 09:46 metronidazole [From Flagyl] Allergy NA Verified 08/09/22 09:46 miconazole Allergy NA Verified 08/09/22 09:46 Sulfa (Sulfonamide Allergy NA Verified 08/09/22 09:46 Antibiotics) sulfamethoxazole Allergy Unknown Verified 08/09/22 09:46 [From Bactrim] trimethoprim [From Bactrim] Allergy Unknown Verified 08/09/22 09:46 PFSH Acute PFSH: Medical History Acute ischemic multifocal multiple vascular territories stroke EFREN (acute kidney injury) CKD (chronic kidney disease) CVA (cerebral vascular accident) left hemiparesis Cystitis Dehydration Depression Diabetes mellitus Diabetes mellitus, type II a1c 10/2020 12.7 Dyslipidemia Feeling grief Groin ulcer Headache History of ischemic vertebrobasilar artery thalamic stroke History of seizure on topamax History of stroke Hypertension hypertensive emergency 10/2020 Hypertension Left pontine stroke Macular degeneration Neurogenic bladder suprapubic catheter, Obesity Obstructive pyelonephritis Recurrent UTI Requires assistance with activities of daily living (ADL) Seizures TIA (transient ischemic attack) Ulcer of sacral region, stage 1 x 2, one on each buttock Urethral pain UTI (urinary tract infection) Surgical History H/O detached retina repair H/O oral surgery History of suprapubic catheter came out in 2019, not replaced S/P appendectomy S/P cataract surgery S/P cholecystectomy S/P knee surgery S/P shoulder surgery Family History Father Cancer Lymphoma Mother CAD (coronary artery disease) Diabetes Chronic kidney disease (CKD) Social History Smoking and tobacco status: former smoker Alcohol intake: never Caregiver/support person: No Lives independently: No Marital status: Marital status details: 12/17/20 Current occupational status: disabled Vitals/I&O/Wt Last Vital Signs Temp 97.8 F 09/19/22 00:55 Pulse 81 09/19/22 00:55 Resp 18 09/19/22 00:55 BP 152/82 09/19/22 00:55 Pulse Ox 96 09/19/22 00:55 O2 Del Method 09/19/22 00:55 09/18/22 09/18/22 09/19/22 14:59 22:59 06:59 Intake Total 50 / 50 Balance 50 / 50 Weight last 48 hrs Weight 97.477 kg Weight 96.615 kg Physical Exam Narrative: General: No acute distress, AO x1-2, lethargic HEENT: PERRLA, pupils bilaterally equal and reactive, pallors not present Chest: Normal vesicular breath sounds, no added sounds, equal good air entry bilaterally CVS: S1-S2 regular, no murmurs, no tachycardia, no gallops, no rubs Abdomen: Soft, nontender, no organomegaly, bowel sounds present Neuro: Unable to assess at this time Data 09/18/22 22:00 09/18/22 22:34 Other Labs: Radiology Impressions Chest X-Ray? 09/18/22 21:51 IMPRESSION: No acute findings. ? Head/Neck CTA? 09/18/22 21:51 IMPRESSION: Negative for intracranial large arterial vessel occlusion. ? ? IMPRESSION: 1. Less than 50% carotid artery stenosis. 2. Negative for vascular occlusion in the neck. ? REFERENCES: NASCET CRITERIA. The degree of stenosis in the cervical segment of the internal carotid artery is based on NASCET criteria. Normal is no stenosis. Mild is less than 50% stenosis. Moderate is 50-69% stenosis. Severe is 70% to 99% stenosis. Total occlusion is no detectable patent lumen. ? A&P Assessment and plan (1) Encephalopathy: (2) History of CVA (cerebrovascular accident): (3) Acute cystitis: (4) EFREN (acute kidney injury): Plan 57-year old lady with history of multiple strokes in the past, bedbound as a result, long-term resident, has a chronic suprapubic catheter in place which gets flushes and changes at the long-term regularly presenting currently with altered mental status. Overall patient showing global slowing, likely consistent with metabolic encephalopathy, perhaps from her UTI. Has underlying dementia. Started on ceftriaxone 1 g IV every 24 hours empirically in keeping with past susceptibility results. Also noted to have EFREN on CKD with creatinine today at 3.2, most recent CT abdomen performed in early August 2022 was without any signs of obstruction along the urinary tract. Started on IV hydration with normal saline at 75 cc an hour. Will obtain CT KUB to evaluate for any obstructive process today. Continue to flush suprapubic catheter N.p.o. until demonstrates improvement in lethargy EKG with sinus rhythm, denies chest pain, troponins mildly elevated, no significant delta, doubt ACS. Attestations Medical Necessity Statement*: Anticipate greater than 2 midnight admission due to need for IV antibiotics, IV hydration as above. Coding Level of Care Code Acute Software Applications Engineer for Ish Sawyer Diagnoses Encephalopathy G93.40 History of CVA (cerebrovascular accident) Z86.73 Acute cystitis N30.00 EFREN (acute kidney injury) N17.9
[2022-09-19] MEDS: sodium chloride 0.9% 1,000 ML 75 ML IV ×2 (01:34→17:44)
[2022-09-19] MEDS: enoxaparin 40 mg/0.4 mL Syringe SUBCUT (01:34)
[2022-09-19] MEDS: lanolin oint 7 gm 1 APPLIC TOPICAL (01:35)
--- NOTE | 2022-09-19 04:15 | ECG_ITS ---
[facility] Test Date: 2022-09-19 Pat Name: Erika Shen Department: Room: 253 Gender: Female Chief Meteorologist: : 1965 Requested By: Ariana Lucero Order Number: [id number] Anton MD: Ramu Mccracken M.D. Measurements Intervals [place] Rate: 83 P: 25 LA: 176 QRS: -30 QRSD: 85 T: 12 QT: 394 QTc: 463 Interpretive Statements SINUS RHYTHM BORDERLINE LEFT AXIS DEVIATION [QRS AXIS < -20] LOW QRS VOLTAGE IN PRECORDIAL LEADS [QRS DEFLECTION < 1.0 mV IN CHEST LEADS] MODERATE VOLTAGE CRITERIA FOR LVH, CONSIDER NORMAL VARIANT [MEETS CRITERIA IN ONE OF: R(aVL), S(V1), R(V5), R(V5/V6)+S(V1)] Compared to ECG 09/19/2022 00:01:42 Low QRS voltage now present Electronically Signed On 09-21-2022 6:36:02 ENVIRONMENTAL HEALTH AND SAFETY MANAGER by Ramu Mccracken M.D. [id number]
--- NOTE | 2022-09-19 05:12 | PC.NURSE ---
UPDATE Has rested well. When repositioned last time she clearly said the word No and raised her R arm to push me away. Just now when lab was drawing blood she was even more alert and was able to tell them her name and correct birthday. Words were garbled some but we understood her.
[2022-09-19 06:24] LABS: Troponin 5 6HR 32.83 ng/L (0-10)
[2022-09-19 06:25] LABS: Troponin 5 6HR Delta 4.83 ng/L (0-12)
[2022-09-19 06:50] LABS: Glucose Point of Care 156 mg/dL (70-110)
--- NOTE | 2022-09-19 07:12 | CT_ITS ---
WS: [id number] CT ABDOMEN PELVIS TECHNIQUE: Noncontrast CT of the abdomen and pelvis with coronal and sagittal reformatted images. CLINICAL INFORMATION: EFREN, evaluate for hydronephoriss, obstrcution COMPARISON: None. DLP: 1109.[address] scans at [facility] use at least one of these dose optimization techniques: automated e xposure control; mA and/or kV adjustment per patient size (includes targeted exams where dose is matc hed to clinical indication); or iterative reconstruction. FINDINGS: Residual contrast from recent CTA head and neck. Moderate RIGHT hydronephrosis has progress ed since August 09, 2022. Perinephric edema about both kidneys RIGHT greater than LEFT. Contrast is seen in the dilated RIGHT extrarenal pelvis. Mid and distal RIGHT ureter decompressed. Consider stric ture at the RIGHT UPJ. Recommend interval follow-up after contrast has cleared. No hydronephrosis in the LEFT kidney. Contrast in the LEFT extrarenal pelvis. Contrast visualized in the bladder. Dependent atelectasis in the lung bases. Noncontrast liver is normal. Prior cholecystectomy. GE junct ion. Noncontrast spleen is normal. Splenic artery calcification. Fatty atrophy of the pancreas. Adren al glands are normal. Moderate aortic calcification. No abdominal or pelvic lymphadenopathy. Rectosigmoid constipation. Cho lecystectomy. Root catheter. CT/CT kidney stone [id number] IMPRESSION: 1. Residual contrast from recent CTA head and neck with delayed clearance RIGH T kidney. Contrast within the RIGHT extrarenal pelvis with moderate RIGHT hydro nephrosis. Ureter transitions to normal caliber distal to the UPJ. No visualize d obstructing calculi although residual contrast obscures some images in the RI GHT renal pelvis and UPJ. Consider RIGHT UPJ stricture. Recommend interval foll ow-up after contrast clears. 2. No hydronephrosis in the LEFT kidney. 3. Suprapubic catheter. Bladder is decompressed. 4. Rectosigmoid constipation. 5. No other significant interval changes.
--- NOTE | 2022-09-19 07:16 | PC.PHAR ---
Kiara from [facility] [phone] states she will fax the pts mar
[2022-09-19] MEDS: insulin lispro 100 unit/1 mL SUBCUT ×3 (08:46→21:18)
--- NOTE | 2022-09-19 10:18 | PM.MISC ---
Miscellaneous Note Note: BaselinePatient was seen and examined Patient is awake and alert Oriented Continue IV fluids and antibiotics Will escalate antibiotics if she becomes febrile Will follow with urine cultures I am not changing any of her medications today Continue IV fluids and ceftriaxone and Added soft mechanical diet She is back to her baseline Added DVT prophylaxis
[2022-09-19 11:44] LABS: Glucose Point of Care 140 mg/dL (70-110)
[2022-09-19 16:41] LABS: Glucose Point of Care 157 mg/dL (70-110)
[2022-09-19 21:13] LABS: Glucose Point of Care 148 mg/dL (70-110)
[2022-09-19] MEDS: metoprolol tartrate 1 mg/1 mL SDV 5 mL 2.5 MG IVP (23:56)
[2022-09-19] MEDS: acetaminophen 1,000 MG/100 ML PIGGYBACK 400 MG IV (23:56)
[2022-09-19 23:57] LABS: Glucose Point of Care 166 mg/dL (70-110)
[2022-09-20] VITALS (18 sets, daily range): BP systolic 107–174; BP diastolic 64–99; PULSE 75–146; RESP 14–24; TEMP 36.1–38.6; O2SAT 90–100
--- NOTE | 2022-09-20 00:07 | PC.NURSE ---
Pt was noted on telemetry to have a HR of 144. 12 lead EKG performed suspected a-fluter. Pt has elevated temperature of 101.2 auxillary and is Hypertensive. Pt has treamors present, hx of seizures. Pt referred to Dr. Bashir and was seen by physician in room. NO were received and noted for 1) Metoprolol 2.5 mg IVP x 1 dose now 2) Acetaminophen 1000 mg IVPB x 1 dose now.
[2022-09-20] MEDS: enoxaparin 40 mg/0.4 mL Syringe SUBCUT (00:24)
[2022-09-20] MEDS: piperacillin-tazobactam 3.375 GM in sodium chloride 0.9% (plus) 50 ML IV ×2 (00:48→08:20)
[2022-09-20] MEDS: sodium chloride 0.9% 1,000 ML 75 ML IV (00:55)
--- NOTE | 2022-09-20 00:59 | PC.NURSE ---
Pt has received stat x 1 orders of metoprolol and apap IV. Pt is now resting quietly in bed w/o s/sx of pain or tremors at this time.
--- NOTE | 2022-09-20 01:01 | PC.NURSE ---
20G IV to R FA infiltrated at this time. IV catheter removed w/tip intact and pressure drsg applied. 20G IV started to R wrist x 1 attempt. Successful, good blood return noted, and flushes w/ease. Pt tolerated procedure well, IV fluids restarted to right wrist.
--- NOTE | 2022-09-20 01:17 | PC.NURSE ---
Pt v/s rechecked at this time. HR remains 120's, remains febrile at 103.1 A. Blankets removed and sheet placed, ice packs also placed. Dr. Shah notified. Pt's appears comfortable in bed at this time, no s/sx of pain present, breathing is even and nonlabored, no more tremors are noted at this time. Will await further instructions/orders from physician.
[2022-09-20 05:09] LABS: Basophils # 0.1 10^3/uL (0.0-0.1); Basophils % 0.4 %; Hematocrit 34.3 % (37.0-47.0); Hemoglobin 10.5 g/dL (11.5-15.3); Lymphocytes # 1.2 10^3/uL (0.8-4.8); Lymphocytes % 7.1 %; Mean Corpuscular HGB Conc 30.6 g/dL (30.0-36.0); Mean Corpuscular Volume 88.2 fl (81-99); Mean Platelet Volume 9.3 fL (7.4-10.4); Monocytes # 1.3 10^3/uL (0.2-0.9); Monocytes % 7.5 %; Neutrophils # 14.19 10^3/uL (1.8-7.7); Neutrophils % 83.8 %; Nucleated Red Blood Cells % 0 %; Platelet Count 346 10^3/cmm (130-400); Red Blood Count 3.89 10^6/uL (4.1-5.3); Red Cell Distribution Width 13.7 % (12.1-15.1); White Blood Count 16.9 10^3/uL (4.0-10.0)
[2022-09-20 05:32] LABS: Alanine Aminotransferase < 5 U/L (0-33); Albumin Level 2.9 g/dL (3.5-5.2); Alkaline Phosphatase 75 U/L (35-105); Anion Gap 18.9 (5-19); Aspartate Amino Transferase 8 U/L (0-32); Blood Urea Nitrogen 50 mg/dL (6-20); Calcium 8.7 mg/dL (8.5-10.5); Carbon Dioxide 17 mmol/L (22-29); Chloride 114 mmol/L (98-107); Globulin 4.3 g/dL (1.3-4.6); Glomerular Filtration Rate 14.4 mL/min (90-130); Glucose 206 mg/dL (65-115); Osmolality Calculated 321 mOsm/kg (285-295); Potassium 3.9 mmol/L (3.5-5.1); Sodium 146 mmol/L (136-145); Total Bilirubin 0.2 mg/dL (0.15-1.2); Total Protein 7.2 g/dL (6.6-8.7)
[2022-09-20 05:33] LABS: Lactate (Lactic Acid level) 0.7 mmol/L (0.5-2.2)
[2022-09-20 06:55] LABS: Glucose Point of Care 194 mg/dL (70-110)
--- NOTE | 2022-09-20 07:17 | PC.NURSE ---
Dr. Gama here this am on rounds. Pt seen and assessed. Physician discussed w/pt that she was needing to have an emergency stent placed this am d/t urinary blockage and infection. Pt nodded consent.
--- NOTE | 2022-09-20 07:18 | PM.CONSULT ---
Providers/Reason For Consult Consulting Physician/Specialty*: Urology/[place] Reason for Consult*: Right obstructive pyelonephritis Requesting Physician: Dr. Palacios Attending Physician: Emily Palacios MD Primary Care Provider: Vu Neil Jr, MD History of Present Illness History of Present Illness Erika Shen is a 57 year old female well-known to me for history of multiple episodes of obstructive pyelonephritis related to stones and chronic indwelling Root catheter with chronic infection. She was admitted yesterday for mental status changes and suspicion for infection. CT scan demonstrated obstructive changes in the right kidney but no clear stone but there is a lot of what appears to be sludge in probably infectious debris in the right renal pelvis extending to the UPJ on that side. The ureter below that point is normal. White count is increasing. Creatinine has doubled. I recommended emergency cystoscopy right ureteral stent placement. Review of Systems General: Reports: ROS unobtainable due to medical condition Medications/Allergies Home Medications Medication Instructions Recorded Confirmed Last Taken Type escitalopram oxalate 20 mg tablet 20 mg PO DAILY@12/01/19 09/19/22 08/09/22 History solifenacin 5 mg tablet (Vesicare) 5 mg PO DAILY@12/01/19 09/19/22 08/09/22 History topiramate 100 mg tablet (Topamax) 100 mg PO DAILY@12/01/19 09/19/22 08/09/22 History cyclobenzaprine 10 mg tablet 10 mg PO Q8H PRN muscle spasms 10/12/20 09/19/22 12/22/20 History blood sugar diagnostic (Accu-Chek #10 ea 10/15/20 09/19/22 Unknown Rx Gaby Plus test strips) blood-glucose meter (Accu-Chek #1 ea 10/15/20 09/19/22 Unknown Rx Gaby Plus Meter) lancets (Accu-Chek Multiclix #100 ea 10/15/20 09/19/22 Unknown Rx Lancet) metoprolol succinate 200 mg 200 mg PO DAILY@12/17/20 09/19/22 08/09/22 History tablet,extended release 24 hr ascorbic acid (vitamin C) 1,000 mg 1,000 mg PO BID@05/01/21 09/19/22 08/09/22 History tablet methenamine hippurate 1 gram 1 g PO BID@05/01/21 09/19/22 08/09/22 History tablet (Hiprex) sitagliptin 50 mg tablet (Januvia) 50 mg PO DAILY@05/01/21 09/19/22 08/09/22 History bisacodyl 10 mg rectal suppository 10 mg TN DAILY PRN Constipation 08/03/21 09/19/22 Unknown History insulin glargine 100 unit/mL (3 22 unit SUBCUT BEDTIME@08/03/21 09/19/22 08/08/22 History mL) subcutaneous pen (Lantus Solostar U-100 Insulin) hydrocodone 5 mg-acetaminophen 325 1 tab PO Q4H PRN Pain 11/20/21 09/19/22 08/09/22 08:01 History mg tablet polyethylene glycol 3350 17 17 g PO DAILY PRN Constipation 12/29/21 09/19/22 12/26/21 History gram/dose oral powder (Miralax) sennosides 8.6 mg tablet (senna) 8.6 mg PO Q12H PRN Constipation 12/29/21 09/19/22 Unknown History tramadol 50 mg tablet 50 mg PO Q6H PRN Pain 12/29/21 09/19/22 Unknown History amlodipine 10 mg tablet 10 mg PO DAILY@01/05/22 09/19/22 08/09/22 History clopidogrel 75 mg tablet 75 mg PO DAILY@01/05/22 09/19/22 08/09/22 History magnesium hydroxide 400 mg/5 mL 30 ml PO DAILY PRN Constipation 07/10/22 09/19/22 Unknown History oral suspension (Milk of Magnesia) mupirocin 2 % topical ointment See Rx Instructions .Route .COMPLEX 07/10/22 09/19/22 Unknown History ondansetron HCl 4 mg tablet 4 mg PO Q6H PRN Nausea 07/10/22 09/19/22 Unknown History acetaminophen 325 mg tablet 650 mg PO Q4H PRN Pain 08/09/22 09/19/22 Unknown History (Tylenol) citric ac 1980.6 mg-glucono 59.4 See Rx Instructions .Route .COMPLEX 08/09/22 09/19/22 Unknown History mg-mag carb 980.4 mg/30 mL irrig.soln (Renacidin) pravastatin 80 mg tablet 80 mg PO DAILY@19 08/09/22 09/19/22 08/08/22 History sodium phosphates 19 gram-7 118 ml TN DAILY PRN Constipation 08/09/22 09/19/22 Unknown History gram/118 mL enema (Enema Disposable) hydroxyzine HCl 25 mg tablet 25 mg PO Q6H PRN Itching 09/19/22 09/19/22 Unknown History nystatin 100,000 unit/gram topical See Rx Instructions .Route .COMPLEX 09/19/22 09/19/22 Unknown History cream Allergies Allergy/AdvReac Type Severity Reaction Status Date / Time levofloxacin [From Levaquin] Allergy NA Verified 08/09/22 09:46 metronidazole [From Flagyl] Allergy NA Verified 08/09/22 09:46 miconazole Allergy NA Verified 08/09/22 09:46 Sulfa (Sulfonamide Allergy NA Verified 08/09/22 09:46 Antibiotics) sulfamethoxazole Allergy Unknown Verified 08/09/22 09:46 [From Bactrim] trimethoprim [From Bactrim] Allergy Unknown Verified 08/09/22 09:46 Current Medications Generic Name Dose Route Start Last Admin Trade Name Freq PRN Reason Stop Dose Admin Enoxaparin Sodium 40 mg 09/19/22 01:00 09/20/22 00:24 Enoxaparin 40 Mg/0.4 Ml Syringe SUBCUT 40 mg Q24H ED Administration Sodium Chloride 1,000 mls @ 75 mls/hr 09/19/22 01:00 09/20/22 00:55 Sodium Chloride 0.9% IV 75 mls/hr .[id number] ED Administration Piperacillin Sod/Tazobactam 50 mls @ 12.5 mls/hr 09/20/22 00:41 09/20/22 04:50 Sod 3.375 gm/ Sodium Chloride IV Infused Q8H ED Infusion Protocol Insulin Human Lispro 0 unit 09/19/22 08:00 09/19/22 21:18 Insulin Lispro 100 Unit/1 Ml SUBCUT 4 unit WM&BEDTIME ED Administration Protocol Lanolin 1 applic 09/19/22 00:55 09/19/22 01:35 Lanolin Oint 7 Gm TOPICAL 1 applic PRN PRN Administration DRYNESS Non-Formulary Medication 0 ampul 09/19/22 09:00 09/19/22 21:25 Citric Wy-[id number] Carb [Renacidin] IRRIGATION Not Given 0900,2100 [facility] PFSH Acute PFSH: Medical History Acute ischemic multifocal multiple vascular territories stroke EFREN (acute kidney injury) CKD (chronic kidney disease) CVA (cerebral vascular accident) left hemiparesis Cystitis Dehydration Depression Diabetes mellitus Diabetes mellitus, type II a1c 10/2020 12.7 Dyslipidemia Feeling grief Groin ulcer Headache History of ischemic vertebrobasilar artery thalamic stroke History of seizure on topamax History of stroke Hypertension hypertensive emergency 10/2020 Hypertension Left pontine stroke Macular degeneration Neurogenic bladder suprapubic catheter, Obesity Obstructive pyelonephritis Recurrent UTI Requires assistance with activities of daily living (ADL) Seizures TIA (transient ischemic attack) Ulcer of sacral region, stage 1 x 2, one on each buttock Urethral pain UTI (urinary tract infection) Surgical History H/O detached retina repair H/O oral surgery History of suprapubic catheter came out in 2019, not replaced S/P appendectomy S/P cataract surgery S/P cholecystectomy S/P knee surgery S/P shoulder surgery Family History Father Cancer Lymphoma Mother CAD (coronary artery disease) Diabetes Chronic kidney disease (CKD) Social History Smoking and tobacco status: former smoker Alcohol intake: never Caregiver/support person: No Lives independently: No Marital status: Marital status details: 12/17/20 Current occupational status: disabled Vitals/I&O/Wt Last Vital Signs Temp 98.8 F 09/20/22 06:44 Pulse 94 09/20/22 06:01 Resp 23 H 09/20/22 04:00 BP 154/91 09/20/22 04:00 Pulse Ox 100 09/20/22 04:00 O2 Del Method 09/20/22 04:00 O2 Flow Rate 2 09/20/22 04:00 09/19/22 09/20/22 09/20/22 22:59 06:59 14:59 Intake Total 240 / 1480 688.750 / 2168.750 Output Total 1100 / 1100 Balance -860 / 380 688.750 / 1068.750 Weight last 48 hrs Weight 214 lb 14.4 oz Weight 213 lb Physical Exam Const: COMMON NORMALS: no acute distress and well nourished GENERAL APPEARANCE: well developed OTHER: Lethargic. Responsive but difficult to communicate with. Was able to shake her head and nod appropriately. HENMT: COMMON NORMALS: normocephalic HEAD & SCALP: normal to inspection and normocephalic Eye: COMMON NORMALS: conjunctivae normal and no scleral icterus CONJUNCTIVA: Yes conjunctivae normal Neck/C-Spine: GENERAL: Yes normal visual inspection Resp: COMMON NORMALS: normal respiratory effort EFFORT & INSPECTION: No labored and No Actively coughing : OTHER: Suprapubic catheter in place. Neuro: OTHER: Functional quadriplegia post multiple CVAs Psych: ATTITUDE: Yes calm Skin: COMMON NORMALS: no jaundice Data 09/20/22 04:50 09/20/22 04:50 Micro: Microbiology 09/20/22 04:50 Blood Culture - Preliminary Blood SPECIMEN COLLECTED 09/20/22 04:50 Blood Culture - Preliminary Blood SPECIMEN COLLECTED A&P Assessment and plan (1) Recurrent obstructive pyelonephritis: To the operating room emergently when time available. Plan for cystoscopy right ureteral stent placement. Consult Attestations Medical Necessity Statement: Critically ill Coding Level of Care Code Acute [employer] for Ish Sawyer Diagnoses Recurrent obstructive pyelonephritis N12
--- NOTE | 2022-09-20 07:38 | SC_ITS ---
WS: [id number] Exam: C-arm FL for Urology Date/Time of Exam: 09/20/2022 7:38 AM Reason For Exam: Cystoscopy, right retrograde ureteropyelogram Anterior posterior Limited C-arm images of the right abdomen are submitted for evaluation. A right re trograde pyelogram has been performed. Contrast extends into the hydronephrotic right kidney. A urete roscope is noted in the ureter. No other significant finding on this limited series.
--- NOTE | 2022-09-20 07:38 | PC.NURSE ---
0735 pt to surgey via bed
--- NOTE | 2022-09-20 07:40 | P.ANESASSM_ITS ---
Pre-Anesthetic Assessment Height/Weight: Height 1.78 m Weight 97.477 kg Temp Pulse Resp BP Pulse Ox O2 Del Method O2 Flow Rate 98.8 F 94 23 H 154/91 100 2 09/20/22 06:44 09/20/22 06:01 09/20/22 04:00 09/20/22 04:00 09/20/22 04:00 09/20/22 04:00 09/20/22 04:00 Preop Diagnosis: Right ureteral calculi. Status post stent for obstructive pyelonephritis Operation Date: 09/20/22 08:15 Proposed Procedures p Cystoscopy(Not Applicable) - Osorio Gama MD s Ureteral Stent Placement(Right) - Osorio Gama MD Exam clear to auscultation bilaterally and regular rate & rhythm CV/HEM Hypertension Chronic Renal Insufficiency obstructive pyelonephritis Metabolic Diabetes Mellitus, Hyperlipidemia and Morbid Obesity Neuropsych Cerebrovascular Accident, Dementia and Seizure hx hemiplegia d/t stroke Anesthetic Plan ASA status: 4E Anesthesia: General Risk of > 500 ml blood loss (7ml/kg in children): No Other Pertinent Information hx obtained from chart review Medications/Allergies Home Medications Medication Instructions Recorded Confirmed Last Taken Type escitalopram oxalate 20 mg tablet 20 mg PO DAILY@12/01/19 09/19/22 08/09/22 History solifenacin 5 mg tablet (Vesicare) 5 mg PO DAILY@12/01/19 09/19/22 08/09/22 History topiramate 100 mg tablet (Topamax) 100 mg PO DAILY@12/01/19 09/19/22 08/09/22 History cyclobenzaprine 10 mg tablet 10 mg PO Q8H PRN muscle spasms 10/12/20 09/19/22 12/22/20 History blood sugar diagnostic (Accu-Chek #10 ea 10/15/20 09/19/22 Unknown Rx Gaby Plus test strips) blood-glucose meter (Accu-Chek #1 ea 10/15/20 09/19/22 Unknown Rx Gaby Plus Meter) lancets (Accu-Chek Multiclix #100 ea 10/15/20 09/19/22 Unknown Rx Lancet) metoprolol succinate 200 mg 200 mg PO DAILY@12/17/20 09/19/22 08/09/22 History tablet,extended release 24 hr ascorbic acid (vitamin C) 1,000 mg 1,000 mg PO BID@05/01/21 09/19/22 08/09/22 History tablet methenamine hippurate 1 gram 1 g PO BID@05/01/21 09/19/22 08/09/22 History tablet (Hiprex) sitagliptin 50 mg tablet (Januvia) 50 mg PO DAILY@05/01/21 09/19/22 08/09/22 History bisacodyl 10 mg rectal suppository 10 mg ID DAILY PRN Constipation 08/03/21 09/19/22 Unknown History insulin glargine 100 unit/mL (3 22 unit SUBCUT BEDTIME@08/03/21 09/19/22 08/08/22 History mL) subcutaneous pen (Lantus Solostar U-100 Insulin) hydrocodone 5 mg-acetaminophen 325 1 tab PO Q4H PRN Pain 11/20/21 09/19/22 08/09/22 08:01 History mg tablet polyethylene glycol 3350 17 17 g PO DAILY PRN Constipation 12/29/21 09/19/22 12/26/21 History gram/dose oral powder (Miralax) sennosides 8.6 mg tablet (senna) 8.6 mg PO Q12H PRN Constipation 12/29/21 1 11/19/21 Unknown History tramadol 50 mg tablet 50 mg PO Q6H PRN Pain 12/29/21 09/19/22 Unknown History amlodipine 10 mg tablet 10 mg PO DAILY@01/05/22 09/19/22 08/09/22 History clopidogrel 75 mg tablet 75 mg PO DAILY@01/05/22 09/19/22 08/09/22 History magnesium hydroxide 400 mg/5 mL 30 ml PO DAILY PRN Constipation 07/10/22 09/19/22 Unknown History oral suspension (Milk of Magnesia) mupirocin 2 % topical ointment See Rx Instructions .Route .COMPLEX 07/10/22 09/19/22 Unknown History ondansetron HCl 4 mg tablet 4 mg PO Q6H PRN Nausea 07/10/22 09/19/22 Unknown History acetaminophen 325 mg tablet 650 mg PO Q4H PRN Pain 08/09/22 09/19/22 Unknown History (Tylenol) citric ac 1980.6 mg-glucono 59.4 See Rx Instructions .Route .COMPLEX 08/09/22 09/19/22 Unknown History mg-mag carb 980.4 mg/30 mL irrig.soln (Renacidin) pravastatin 80 mg tablet 80 mg PO DAILY@19 08/09/22 09/19/22 08/08/22 History sodium phosphates 19 gram-7 118 ml ID DAILY PRN Constipation 08/09/22 09/19/22 Unknown History gram/118 mL enema (Enema Disposable) hydroxyzine HCl 25 mg tablet 25 mg PO Q6H PRN Itching 09/19/22 09/19/22 Unknown History nystatin 100,000 unit/gram topical See Rx Instructions .Route .COMPLEX 09/19/22 09/19/22 Unknown History cream Allergies Allergy/AdvReac Type Severity Reaction Status Date / Time levofloxacin [From Levaquin] Allergy NA Verified 08/09/22 09:46 metronidazole [From Flagyl] Allergy NA Verified 08/09/22 09:46 miconazole Allergy NA Verified 08/09/22 09:46 Sulfa (Sulfonamide Allergy NA Verified 08/09/22 09:46 Antibiotics) sulfamethoxazole Allergy Unknown Verified 08/09/22 09:46 [From Bactrim] trimethoprim [From Bactrim] Allergy Unknown Verified 08/09/22 09:46 Current Medications Generic Name Dose Route Start Last Admin Trade Name Freq PRN Reason Stop Dose Admin Enoxaparin Sodium 40 mg 09/19/22 01:00 09/20/22 00:24 Enoxaparin 40 Mg/0.4 Ml Syringe SUBCUT 40 mg Q24H ED Administration Sodium Chloride 1,000 mls @ 75 mls/hr 09/19/22 01:00 09/20/22 00:55 Sodium Chloride 0.9% IV 75 mls/hr .[id number] ED Administration Piperacillin Sod/Tazobactam 50 mls @ 12.5 mls/hr 09/20/22 00:41 09/20/22 04:50 Sod 3.375 gm/ Sodium Chloride IV Infused Q8H ED Infusion Protocol Insulin Human Lispro 0 unit 09/19/22 08:00 09/19/22 21:18 Insulin Lispro 100 Unit/1 Ml SUBCUT 4 unit WM&BEDTIME ED Administration Protocol Lanolin 1 applic 09/19/22 00:55 09/19/22 01:35 Lanolin Oint 7 Gm TOPICAL 1 applic PRN PRN Administration DRYNESS Non-Formulary Medication 0 ampul 09/19/22 09:00 09/19/22 21:25 Citric Wa-Baihbwullfs-Fma Carb [Renacidin] IRRIGATION Not Given 0900,2100 [facility] Anesthesia Medical History Acute ischemic multifocal multiple vascular territories stroke EFREN (acute kidney injury) CKD (chronic kidney disease) CVA (cerebral vascular accident) left hemiparesis Cystitis Dehydration Depression Diabetes mellitus Diabetes mellitus, type II a1c 10/2020 12.7 Dyslipidemia Feeling grief Groin ulcer Headache History of ischemic vertebrobasilar artery thalamic stroke History of seizure on topamax History of stroke Hypertension hypertensive emergency 10/2020 Hypertension Left pontine stroke Macular degeneration Neurogenic bladder suprapubic catheter, Obesity Obstructive pyelonephritis Recurrent UTI Requires assistance with activities of daily living (ADL) Seizures TIA (transient ischemic attack) Ulcer of sacral region, stage 1 x 2, one on each buttock Urethral pain UTI (urinary tract infection) Surgical History H/O detached retina repair H/O oral surgery History of suprapubic catheter came out in 2019, not replaced S/P appendectomy S/P cataract surgery S/P cholecystectomy S/P knee surgery S/P shoulder surgery Family History Father Cancer Lymphoma Mother CAD (coronary artery disease) Diabetes Chronic kidney disease (CKD) Social History Smoking and tobacco status: former smoker Alcohol intake: never Caregiver/support person: No Lives independently: No Marital status: Marital status details: 12/17/20 Current occupational status: disabled Data Anesthesia 09/20/22 04:50 09/20/22 04:50 Short CBC 09/18/22 09/20/22 Range/Units 22:00 04:50 WBC 10.8 H 16.9 H (4.0-10.0) 10^3/uL Hgb 11.7 10.5 L (11.5-15.3) g/dL Hct 37.1 34.3 L (37.0-47.0) % MCV 84.7 88.2 (81-99) fl Plt Count 307 346 (130-400) 10^3/cmm Neut % (Auto) 82.0 83.8 % Neut # (Auto) 8.85 H 14.19 H (1.8-7.7) 10^3/uL BMP 09/18/22 09/18/22 09/20/22 22:00 22:34 04:50 Sodium Cancelled 139 146 H Potassium Cancelled 3.8 3.9 Chloride Cancelled 107 114 H Carbon Dioxide Cancelled 19 L 17 L BUN Cancelled 57 H 50 H Creatinine Cancelled 3.2 H 3.3 H Glucose Cancelled 205 H 206 H Calcium Cancelled 8.5 8.7 Cardiac Enzymes 09/18/22 09/18/22 09/19/22 Range/Units 22:00 22:34 00:00 Troponin T Baseline Cancelled 28 H Troponin T 120 Minute 29.17 H (0-10) ng/L Delta Troponin T 1.17 (0-10) ABS# Troponin T Hi Sens 6Hr (0-10) ng/L Troponin T Hi Sens 6Hr Delta (0-12) ng/L 09/19/22 Range/Units 05:09 Troponin T Baseline Troponin T 120 Minute (0-10) ng/L Delta Troponin T (0-10) ABS# Troponin T Hi Sens 6Hr 32.83 H (0-10) ng/L Troponin T Hi Sens 6Hr Delta 4.83 (0-12) ng/L Liver Function 09/18/22 09/18/22 09/20/22 Range/Units 22:00 22:34 04:50 Total Bilirubin Cancelled 0.2 0.2 AST Cancelled 7 8 ALT Cancelled < 5 < 5 Alkaline Phosphatase Cancelled 75 75 Albumin Cancelled 2.9 L 2.9 L Urine 09/18/22 Range/Units 22:43 Urine Color Yellow (Yellow) Urine Appearance Hazy A (CLEAR) Urine pH 7 (5-7) Ur Specific [place] 1.005 (1.005-1.030) Urine Protein 3+ H (Negative) Urine Glucose (UA) Norm (Normal) Urine Ketones 1+ H (Negative) Urine Nitrate Positive H (Negative) Urine Bilirubin Neg (Negative) Ur Leukocyte Esterase 2+ H (Negative) Urine RBC Too numerous to cnt H (0-2) /hpf Urine WBC Too numerous to cnt H (0-5) /hpf Coags 09/18/22 09/18/22 22:00 22:42 PT Cancelled 14.50 INR Cancelled 1.09 ABG 09/18/22 00:00 Specimen Type Arterial Sample Site Brachial, right ABG pH 7.26 L ABG pCO2 45.4 H ABG pO2 72.1 L ABG HCO3 20.4 L ABG Base Excess -6.4 L O2 Delivery Device Nc Microbiology 09/20/22 04:50 Blood Culture - Preliminary Blood SPECIMEN COLLECTED 09/20/22 04:50 Blood Culture - Preliminary Blood SPECIMEN COLLECTED Cardiac Studies: Echocardiogram 01/11/22 Cardiac Event Monitor 10/05/21
[2022-09-20] MEDS: sodium chloride 0.9% 1,000 ML 30 ML IV (08:00)
[2022-09-20 08:01] LABS: Glucose Point of Care 196 mg/dL (70-110)
--- NOTE | 2022-09-20 08:01 | PC.NURSE ---
Unable to do preoperative checklist due to patient altered mental status
[2022-09-20] MEDS: acetaminophen 1,000 MG/100 ML PIGGYBACK 400 MG IV (08:10)
[2022-09-20] MEDS: iohexol 300 mg/mL 50 mL Btl (OR ONLY) XX (08:31)
--- NOTE | 2022-09-20 08:55 | P.OP_ITS ---
Operative Report Date of procedure: September 20, 2022 Pre-op diagnosis: Right UPJ obstruction with obstructive pyelonephritis, possible ureteral stricture Post-op diagnosis: Right UPJ obstruction with obstructive pyelonephritis, possible ureteral stricture Could not pass stent retrograde fashion Procedure done: 1. Cystoscopy, right retrograde ureteropyelogram 2. Right flexible ureteroscopy 3. Suprapubic tube change Implants: Suprapubic tube Pathology: None Surgeon: Natan Estimated blood loss: None Urine output: Not measured Complications: 1. Could not advance the wire past the right UPJ obstruction that looked like a stricture on CT scan versus obstructive/ 2. Some mild extravasation at the UPJ. Findings: Anesthesia: General Condition: Stable Disposition: PACU Intraoperative findings: * Abrupt stoppage of contrast at the UPJ. * Failed with a flexible tip wire and a zip wire to bridge the obstruction. * Could not find the true lumen with flexible ureteroscopy * Some contrast extravasation from the site on final retrograde contrast injection * Remained hemodynamically stable throughout the procedure Brief History: Erika is a very unfortunate 57-year-old white female with history of multiple strokes who is presented in the past with multiple episodes of obstructive pyelonephritis. Has had staghorn calculi in the past treated Admitted yesterday with signs of infection and a CT scan showed evidence of obstruction of the right collecting system at the level of the UPJ. No obvious stone could be seen and it was presumed that she had a stricture. I was consulted this morning for evaluation. She did not appear to have some matrix/sludge in the right renal pelvis so the hope was that she it rather than having a stricture would have something that would be easily bypassable with a wire I recommended emergent cystoscopy and stent placement on the right side Has been hemodynamically stable throughout despite rising white count and increasing creatinine Procedure: After emergent evaluation examination and obtaining of informed consent she was taken to the operating suite on 09/20/2022 where general anesthesia was administered without difficulty. Prepped and draped in usual sterile fashion in dorsolithotomy position paying careful attention to avoiding pressure points. 21 Citizen [place] cystoscope with 30 degree lens was introduced into the urethra meatus and advanced into the bladder without difficulty. She does have a chronic suprapubic tube which was confirmed to be in good place. A flexible tip guidewire was then advanced up the right ureter but could not be advanced beyond what appeared to be the area of the UPJ. An open-ended ureteral catheter was advanced to below this point but it did not facilitate passage of the wire. The flexible tip guidewire was exchanged with a zip wire with the same result. Contrast was injected through the open-ended ureteral catheter and it showed an abrupt stoppage of contrast at the UPJ. There was no obvious filling defect it had more of a picture of a stricture. The flexible tip wire was then placed below that point and the opening ureteral catheter removed. A flexible ureteroscope was then advanced over the guidewire easily up the right ureter to just below that point. The wire was removed and the ureter was inspected. There appeared to be a false passage and the true lumen could not be clearly identified. Some contrast was injected through the scope and I demonstrated some extravasation at that site. At that point the procedure was aborted without the stent. Her old suprapubic tube was removed and a new 1 was replaced. There is a 22 [place] with 10 cc in the balloon was confirmed to be functioning well bladder was drained and the procedure was completed. She remained stable hemodynamically throughout the procedure with no pressors or any other supportive care required other than topical anesthesia. PLANS: 1. We will pursue transfer to institution with interventional radiology and that she needs a right percutaneous nephrostomy tube placement. Hopefully the continuity of the UPJ can be reestablished potentially with an antegrade stent at some point We will check with [place] [facility] to see if there is any availability for transfer. We have had a very difficult time recently finding open beds due to capacity issues
--- NOTE | 2022-09-20 09:44 | PC.NURSE ---
pt returned from surgery via bed ...only opens eyes to painful stimili...
--- NOTE | 2022-09-20 10:35 | P.TS_ITS ---
Transfer Summary Providers Date of Admission: 09/19/22 00:03 Date of Discharge/Transfer: 09/20/22 Attending Provider at Admission: Emily Palacios MD Attending Provider at Transfer: Emily Palacios MD Primary Care Provider: Vu Neil Jr, MD Transfer Plans: Anticipated date of transfer: 09/20/22 . Diagnoses at Discharge Discharge Diagnosis (1) Recurrent obstructive pyelonephritis: Status: Acute Reason for Visit Reason for Visit [facility] Hospital Course Hospital Course 57-year-old female, custodial resident bedbound, status post suprapubic catheter recurrent UTIs in the past related to obstructive pyelonephritis, patient was admitted to the hospital for management of metabolic encephalopathy related to UTI, she was diagnosed with sepsis [address] hours of [address] admission CT scan abdomen pelvis was done which showed obstructive pyelonephritis Dr. Gama was consulted, Dr. Gama was unsuccessful to get stent pass the stricture, he recommended PERC, white count is 16,000. Sodium 146. Creatinine worsened to 3.3. Baseline creatinine ranges between 1.9-2 Previous urine culture showed Proteus mirabilis, E. coli, Enterobacter allergies: Pansensitive [address] [address] [address] Scan Report Signed Patient: Erika Shen Unit #: [id number] : 1965 Age/Sex: 57 / F ADM Date: 09/19/22 Loc: [facility] Room/Bed: [facility]: Emily Palacios MD Ordering Provider/Ordering MD: Tg Palacios MD Date of Service: 09/19/22 Procedure(s): CT kidney stone 32352 Accession Number(s): [id number] Report Number: [id number] WS: [id number] CT ABDOMEN PELVIS TECHNIQUE: Noncontrast CT of the abdomen and pelvis with coronal and sagittal reformatted images. CLINICAL INFORMATION: EFREN, evaluate for hydronephoriss, obstrcution COMPARISON: None. DLP: 1109.[address] scans at [facility] use at least one of these dose optimization techniques: automated exposure control; mA and/or kV adjustment per patient size (includes targeted exams where dose is matched to clinical indication); or iterative reconstruction. FINDINGS: Residual contrast from recent CTA head and neck. Moderate RIGHT hydronephrosis has progressed since August 09, 2022. Perinephric edema about both kidneys RIGHT greater than LEFT. Contrast is seen in the dilated RIGHT extrarenal pelvis. Mid and distal RIGHT ureter decompressed. Consider stricture at the RIGHT UPJ. Recommend interval follow-up after contrast has cleared. No hydronephrosis in the LEFT kidney. Contrast in the LEFT extrarenal pelvis. Contrast visualized in the bladder. Dependent atelectasis in the lung bases. Noncontrast liver is normal. Prior cholecystectomy. GE junction. Noncontrast spleen is normal. Splenic artery calcification. Fatty atrophy of the pancreas. Adrenal glands are normal. Moderate aortic calcification. No abdominal or pelvic lymphadenopathy. Rectosigmoid constipation. Cholecystectomy. Root catheter. CT/CT kidney stone [id number] IMPRESSION: ? 1.? Residual contrast from recent CTA head and neck with delayed clearance RIGHT kidney. Contrast within the RIGHT extrarenal pelvis with moderate RIGHT hydr onephrosis. Ureter transitions to normal caliber distal to the UPJ. No visualized obstructing calculi although residual contrast obscures some images in the RIGHT renal pelvis and UPJ. Consider RIGHT UPJ stricture. Recommend interval follow-up after contrast clears. 2.? No hydronephrosis in the LEFT kidney. 3.? Suprapubic catheter. Bladder is decompressed. 4.? Rectosigmoid constipation. 5.? No other significant interval changes. Physical Exam Narrative: Patient is bedbound Suprapubic catheter in place Oriented to herself Hemodynamically stable Abdomen soft No active emesis S1, S2 Urinary Catheter Management: Suprapubic Latex: Cath Placed During This Visit: no TS Data Studies Completed and Pending Pending at discharge Category Date Time Status C-arm Fluoroscopy [id number] Routine Exams 09/20/22 07:38 Taken Blood Culture AM LABS Lab 09/20/22 04:50 Results Urine Culture Stat Lab 09/18/22 22:43 Results Labs from last 24 hours 09/20/22 09/20/22 09/20/22 07:57 06:46 04:50 WBC RBC Hgb Hct MCV MCH MCHC RDW Plt Count MPV Neut % (Auto) Lymph % (Auto) [place] % (Auto) Eos % (Auto) Baso % (Auto) Neut # (Auto) Lymph # (Auto) [place] # (Auto) Eos # (Auto) Baso # (Auto) Nucleated RBC % (auto) Nucleated RBCs # Sodium Potassium Chloride Carbon Dioxide Anion Gap BUN Creatinine GFR Calculation Glucose POC Glucose 196 H 194 H Calculated Osmolality Lactate 0.7 Calcium Total Bilirubin AST ALT Alkaline Phosphatase Total Protein Albumin Globulin 09/20/22 09/20/22 09/19/22 04:50 04:50 23:52 WBC 16.9 H RBC 3.89 L Hgb 10.5 L Hct 34.3 L MCV 88.2 MCH 27.0 L MCHC 30.6 RDW 13.7 Plt Count 346 MPV 9.3 Neut % (Auto) 83.8 Lymph % (Auto) 7.1 [place] % (Auto) 7.5 Eos % (Auto) 0.0 Baso % (Auto) 0.4 Neut # (Auto) 14.19 H Lymph # (Auto) 1.2 [place] # (Auto) 1.3 H Eos # (Auto) 0.0 Baso # (Auto) 0.1 Nucleated RBC % (auto) 0 Nucleated RBCs # 0.0 Sodium 146 H Potassium 3.9 Chloride 114 H Carbon Dioxide 17 L Anion Gap 18.9 BUN 50 H Creatinine 3.3 H GFR Calculation 14.4 L Glucose 206 H POC Glucose 166 H Calculated Osmolality 321 H Lactate Calcium 8.7 Total Bilirubin 0.2 AST 8 ALT < 5 Alkaline Phosphatase 75 Total Protein 7.2 Albumin 2.9 L Globulin 4.3 09/19/22 09/19/22 09/19/22 20:55 16:35 11:37 WBC RBC Hgb Hct MCV MCH MCHC RDW Plt Count MPV Neut % (Auto) Lymph % (Auto) [place] % (Auto) Eos % (Auto) Baso % (Auto) Neut # (Auto) Lymph # (Auto) [place] # (Auto) Eos # (Auto) Baso # (Auto) Nucleated RBC % (auto) Nucleated RBCs # Sodium Potassium Chloride Carbon Dioxide Anion Gap BUN Creatinine GFR Calculation Glucose POC Glucose 148 H 157 H 140 H Calculated Osmolality Lactate Calcium Total Bilirubin AST ALT Alkaline Phosphatase Total Protein Albumin Globulin Completed Studies During Hospitalization Category Date Time Status CT abdomen renal stone [CT kidney stone [id number]] Routine Cat Scan 09/19/22 07:[address] angio headneck* [id number] Stat Cat Scan 09/18/22 21:51 Completed XR chest 1V portable [id number] Stat Exams 09/18/22 21:51 Completed Laboratory Last Values WBC 16.9 10^3/uL (4.0-10.0) H 09/20/22 04:50 RBC 3.89 10^6/uL (4.1-5.3) L 09/20/22 04:50 Hgb 10.5 g/dL (11.5-15.3) L 09/20/22 04:50 Hct 34.3 % (37.0-47.0) L 09/20/22 04:50 MCV 88.2 fl (81-99) 09/20/22 04:50 MCH 27.0 pg (28.0-34.0) L 09/20/22 04:50 MCHC 30.6 g/dL (30.0-36.0) 09/20/22 04:50 RDW 13.7 % (12.1-15.1) 09/20/22 04:50 Plt Count 346 10^3/cmm (130-400) 09/20/22 04:50 MPV 9.3 fL (7.4-10.4) 09/20/22 04:50 Neut % (Auto) 83.8 % 09/20/22 04:50 Lymph % (Auto) 7.1 % 09/20/22 04:50 [place] % (Auto) 7.5 % 09/20/22 04:50 Eos % (Auto) 0.0 % 09/20/22 04:50 Baso % (Auto) 0.4 % 09/20/22 04:50 Neut # (Auto) 14.19 10^3/uL (1.8-7.7) H 09/20/22 04:50 Lymph # (Auto) 1.2 10^3/uL (0.8-4.8) 09/20/22 04:50 [place] # (Auto) 1.3 10^3/uL (0.2-0.9) H 09/20/22 04:50 Eos # (Auto) 0.0 10^3/uL (0.0-0.8) 09/20/22 04:50 Baso # (Auto) 0.1 10^3/uL (0.0-0.1) 09/20/22 04:50 Nucleated RBC % (auto) 0 % 09/20/22 04:50 Nucleated RBCs # 0.0 /100WBC 09/20/22 04:50 PT 14.50 SECONDS (12.1-14.9) 09/18/22 22:42 INR 1.09 (0.8-1.2) 09/18/22 22:42 Specimen Type Arterial 09/18/22 00:00 Sample Site Brachial, right 09/18/22 00:00 ABG pH 7.26 (7.35-7.45) L 09/18/22 00:00 ABG pCO2 45.4 mmHg (35-45) H 09/18/22 00:00 ABG pO2 72.1 mmHg (80.0-100.0) L 09/18/22 00:00 ABG HCO3 20.4 mmol/L (22-26) L 09/18/22 00:00 ABG Base Excess -6.4 mmol/L (-2.0-2.0) L 09/18/22 00:00 Mathieu Test Pos 09/18/22 00:00 Hematocrit 33.7 % (37-47) L 09/18/22 00:00 O2 Delivery Device Nc 09/18/22 00:00 Juice Tester ID Juan C 09/18/22 00:00 Sodium 146 mmol/L (136-145) H 09/20/22 04:50 Potassium 3.9 mmol/L (3.5-5.1) 09/20/22 04:50 Chloride 114 mmol/L (98-107) H 09/20/22 04:50 Carbon Dioxide 17 mmol/L (22-29) L 09/20/22 04:50 Anion Gap 18.9 (5-19) 09/20/22 04:50 BUN 50 mg/dL (6-20) H 09/20/22 04:50 Creatinine 3.3 mg/dL (0.5-0.9) H 09/20/22 04:50 GFR Calculation 14.4 mL/min (90-130) L 09/20/22 04:50 Glucose 206 mg/dL (65-115) H 09/20/22 04:50 POC Glucose 196 mg/dL (70-110) H 09/20/22 07:57 Calculated Osmolality 321 mOsm/kg (285-295) H 09/20/22 04:50 Lactate 0.7 mmol/L (0.5-2.2) 09/20/22 04:50 Calcium 8.7 mg/dL (8.5-10.5) 09/20/22 04:50 Magnesium 2.1 mg/dL (1.7-2.3) 09/18/22 22:34 Total Bilirubin 0.2 mg/dL (0.15-1.2) 09/20/22 04:50 AST 8 U/L (0-32) 09/20/22 04:50 ALT < 5 U/L (0-33) 09/20/22 04:50 Alkaline Phosphatase 75 U/L (35-105) 09/20/22 04:50 Ammonia 31 umol/L (11-51) 09/18/22 22:34 Troponin T Baseline 28 ng/L (0-10) H 09/18/22 22:34 Troponin T 120 Minute 29.17 ng/L (0-10) H 09/19/22 00:00 Delta Troponin T 1.17 ABS# (0-10) 09/19/22 00:00 Troponin T Hi Sens 6Hr 32.83 ng/L (0-10) H 09/19/22 05:09 Troponin T Hi Sens 6Hr Delta 4.83 ng/L (0-12) 09/19/22 05:09 Total Protein 7.2 g/dL (6.6-8.7) 09/20/22 04:50 Albumin 2.9 g/dL (3.5-5.2) L 09/20/22 04:50 Globulin 4.3 g/dL (1.3-4.6) 09/20/22 04:50 TSH 1.90 uIU/mL (0.27-4.20) 09/18/22 22:34 Urine Color Yellow (Yellow) 09/18/22 22:43 Urine Appearance Hazy (CLEAR) A 09/18/22:43 Urine pH 7 (5-7) 09/18/22:43 Ur Specific [place] 1.005 (1.005-1.030) 09/18/22 22:43 Urine Protein 3+ (Negative) H 09/18/22 22:43 Urine Glucose (UA) Norm (Normal) 09/18/22 22:43 Urine Ketones 1+ (Negative) H 09/18/22 22:43 Urine Blood 3+ (Negative) H 09/18/22 22:43 Urine Nitrate Positive (Negative) H 09/18/22 22:43 Urine Bilirubin Neg (Negative) 09/18/22 22:43 Urine Urobilinogen Norm mg/dL (Negative) 09/18/22 22:43 Ur Leukocyte Esterase 2+ (Negative) H 09/18/22 22:43 Urine RBC Too numerous to cnt /hpf (0-2) H 09/18/22 22:43 Urine WBC Too numerous to cnt /hpf (0-5) H 09/18/22 22:43 Ur Squamous Epith Cells 0-4 /hpf (0-5) H 09/18/22 22:43 Amorphous Sediment Not Reportable 09/18/22: Urine Bacteria 4+ /hpf (NONE) H 09/18/22 22:43 Radiology Impressions Chest X-Ray 09/18/22 21:51 IMPRESSION: No acute findings. Head/Neck CTA 09/18/22 21:51 IMPRESSION: Negative for intracranial large arterial vessel occlusion. IMPRESSION: 1. Less than 50% carotid artery stenosis. 2. Negative for vascular occlusion in the neck. REFERENCES: NASCET CRITERIA. The degree of stenosis in the cervical segment of the internal carotid artery is based on NASCET criteria. Normal is no stenosis. Mild is less than 50% stenosis. Moderate is 50-69% stenosis. Severe is 70% to 99% stenosis. Total occlusion is no detectable patent lumen. Abdomen/Pelvis CT 09/19/22 07:12 IMPRESSION: 1. Residual contrast from recent CTA head and neck with delayed clearance RIGHT kidney. Contrast within the RIGHT extrarenal pelvis with moderate RIGHT hydronephrosis. Ureter transitions to normal caliber distal to the UPJ. No visualized obstructing calculi although residual contrast obscures some images in the RIGHT renal pelvis and UPJ. Consider RIGHT UPJ stricture. Recommend interval follow-up after contrast clears. 2. No hydronephrosis in the LEFT kidney. 3. Suprapubic catheter. Bladder is decompressed. 4. Rectosigmoid constipation. 5. No other significant interval changes. Recent Clincial Data Last Vital Signs Temp 97.7 F 09/20/22 10:21 Pulse 77 09/20/22 10:21 Resp 15 09/20/22 10:21 BP 129/77 09/20/22 10:21 Pulse Ox 92 09/20/22 10:21 O2 Del Method 09/20/22 10:21 O2 Flow Rate 2 09/20/22 09:17 Vital Signs Temp Pulse Resp BP Pulse Ox O2 Del Method O2 Flow Rate 09/20/22 10:21 97.7 F 77 15 129/77 92 Nasal Cannula 09/20/22 09:25 98.2 F 79 16 122/72 92 Nasal Cannula 09/20/22 09:17 97.0 F L 81 16 117/85 97 Nasal Cannula 2 09/20/22 09:12 79 16 109/67 96 Nasal Cannula 2 09/20/22 09:07 79 14 107/64 98 Nasal Cannula 3 09/20/22 09:02 79 16 122/80 97 Simple Mask 6 09/20/22 08:57 98.2 F 75 16 114/65 95 Simple Mask 6 09/20/22 08:57 6 09/20/22 06:44 98.8 F 09/20/22 06:01 94 09/20/22 04:00 100.1 F H 102 H 23 H 154/91 100 Nasal Cannula 2 09/20/22 02:47 99.5 F 09/20/22 02:12 101.4 F H 115 H 24 H 154/81 97 Nasal Cannula 2 09/20/22 00:00 101.2 F H 146 H 24 H 174/99 96 Nasal Cannula 3 Intake & Output/Weight 09/18/22 09/19/22 09/20/22 09/21/22 06:59 06:59 06:59 06:59 Intake Total 1050 / 1050 2168.750 / 2168.750 150 / 150 Output Total 1100 / 1100 0 / 0 Balance 1050 / 1050 1068.750 / 1068.750 150 / 150 Weight 97.477 kg Vitals Last Vital Signs Temp 97.7 F 09/20/22 10:21 Pulse 77 09/20/22 10:21 Resp 15 09/20/22 10:21 BP 129/77 09/20/22 10:21 Pulse Ox 92 09/20/22 10:21 O2 Del Method 09/20/22 10:21 O2 Flow Rate 2 09/20/22 09:17 TS Medications Medications Acetaminophen (Acetaminophen 325 Mg Tablet) 650 mg PO Q6H PRN PRN Reason: Mild/Mod Pain Or Temp >/= 101 Dextrose (Dextrose 50% Syringe 50 Ml) 25 ml IVP ONCE PRN; Protocol PRN Reason: hypoglycemia protocol Dextrose (Dextrose 50% Syringe 50 Ml) 50 ml IVP PRN PRN; Protocol PRN Reason: hypoglycemia protocol Enoxaparin Sodium (Enoxaparin 40 Mg/0.4 Ml Syringe) 40 mg SUBCUT Q24H [facility] Last Admin: 09/20/22 00:24 Dose: 40 mg Glucagon (Glucagon 1 Mg/Ml Inj 1 Ml) 1 mg IM ONCE PRN; Protocol PRN Reason: Adult Acute Hypoglycemia Prot. Sodium Chloride (Sodium Chloride 0.9%) 1,000 mls @ 75 mls/hr IV .[id number] [facility] Last Admin: 09/20/22 00:55 Dose: 75 mls/hr Dextrose (D5w) 500 mls @ 100 mls/hr IV ONCE PRN; Protocol PRN Reason: Adult Acute Hypoglycemia Prot Piperacillin Sod/Tazobactam (Sod 3.375 gm/ Sodium Chloride) 50 mls @ 12.5 mls/hr IV Q8H [facility]; Protocol Last Admin: 09/20/22 08:20 Dose: 12.5 mls/hr Insulin Human Lispro (Insulin Lispro 100 Unit/1 Ml) 0 unit SUBCUT WM&BEDTIME [facility]; Protocol Last Admin: 09/19/22 21:18 Dose: 4 unit Lanolin (Lanolin Oint 7 Gm) 1 applic TOPICAL PRN PRN PRN Reason: DRYNESS Last Admin: 09/19/22 01:35 Dose: 1 applic Non-Formulary Medication (Citric Qn-Qkhzliemecn-Kya Carb [Renacidin]) 0 ampul IRRIGATION 0900,2100 [facility] Last Admin: 09/20/22 10:20 Dose: Not Given Ondansetron HCl (Ondansetron 2 Mg/Ml Sdv 2 Ml) 4 mg IVP Q8H PRN PRN Reason: vomiting, or N/V if npo Discontinued Medications Albuterol Sulfate (Albuterol 2.5 Mg/3 Ml Neb) 2.5 mg INHALATION ONCE PRN PRN Reason: WHEEZING Benzocaine (Cetylpyridinium Lozenge) 1 each MUCOUS MEM ONCE ONE Stop: 09/20/22 08:32 Dexamethasone (Dexamethasone 4 Mg/Ml Inj) 4 mg IVP Q5M PRN PRN Reason: Nausea unrelieved by Reglan Stop: 09/21/22 08:31 Famotidine (Famotidine 20 Mg/2 Ml Inj) 20 mg IVP ONCE PRN PRN Reason: HEARTBURN Fentanyl (Fentanyl 50 Mcg/Ml Inj 2ml) 50 mcg IVP Q10M PRN PRN Reason: Preop Pain Fentanyl (Fentanyl 50 Mcg/Ml Inj 2ml) 100 mcg IVP ONCE PRN PRN Reason: Per anesthesia for block Fentanyl (Fentanyl 50 Mcg/Ml Inj 2ml) Confirm Administered Dose 100 mcg .ROUTE .STK-MED ONE Stop: 09/20/22 08:09 Fentanyl (Fentanyl 50 Mcg/Ml Inj 2ml) 50 mcg IVP Q5M PRN PRN Reason: Pain level 6-10 PACU Phase I Stop: 09/21/22 08:31 Hydromorphone HCl (Hydromorphone 1 Mg/Ml Inj 1 Ml) 0.25 mg IVP Q10M PRN PRN Reason: Pain level 4-6 PACU Phase I Stop: 09/21/22 08:31 Hydromorphone HCl (Hydromorphone 1 Mg/Ml Inj 1 Ml) 0.5 mg IVP Q10M PRN PRN Reason: Pain level 7-10 PACU Phase I Stop: 09/21/22 08:31 Sodium Chloride (Sodium Chloride 0.9%) 1,000 mls @ 999 mls/hr IV .Q1H1M ONE Stop: 09/19/22 00:08 Last Infusion: 09/19/22 00:21 Dose: Infused Ceftriaxone Sodium 1,000 mg/ (Sodium Chloride) 50 mls @ 100 mls/hr IV ONCE ONE; Protocol Stop: 09/18/22 23:41 Last Infusion: 09/19/22 00:15 Dose: Infused Ceftriaxone Sodium 1,000 mg/ (Sodium Chloride) 50 mls @ 100 mls/hr IV Q24H [facility]; Protocol Acetaminophen (Acetaminophen) 1,000 mg in 100 mls @ 400 mls/hr IV ONCE ONE Stop: 09/19/22 23:59 Last Infusion: 09/20/22 00:33 Dose: Infused Piperacillin Sod/Tazobactam (Sod 3.375 gm/ Sodium Chloride) 50 mls @ 12.5 mls/hr IV Q8H ED; Protocol Sodium Chloride (Sodium Chloride 0.9%) 1,000 mls @ 30 mls/hr IV .Q24H ED Stop: 09/21/22 07:44 Last Admin: 09/20/22 08:00 Dose: 30 mls/hr Acetaminophen (Acetaminophen) Confirm Administered Dose 1,000 mg in 100 mls @ as directed .ROUTE .STK-MED ONE Stop: 09/20/22 08:07 Last Admin: 09/20/22 08:31 Dose: Not Given Acetaminophen (Acetaminophen) 1,000 mg in 100 mls @ 400 mls/hr IV ONCE ONE Stop: 09/20/22 08:14 Last Infusion: 09/20/22 08:20 Dose: Infused Sodium Chloride (Sodium Chloride 0.9%) 500 mls @ 999 mls/hr IV .Q31M PRN PRN Reason: HYPOTENSION Iohexol (Iohexol 350 Mg/Ml 500 Ml Btl (Per Ml)) 0 ml IV ONCE ONE Stop: 09/18/22 22:25 Last Admin: 09/18/22 22:25 Dose: 100 ml Iohexol (Iohexol 350 Mg/Ml 500 Ml Btl (Per Ml)) 100 ml .ROUTE .STK-[facility] ONE Stop: 09/19/22 10:08 Iohexol (Iohexol 300 Mg/Ml 50 Ml Btl (Or Only)) 1 - 50 ml XX ONCE ONE Stop: 09/20/22 08:30 Last Admin: 09/20/22 08:31 Dose: 10 ml Ipratropium [place] (Ipratropium 0.5 Mg/2.5 Ml Neb) 0.5 mg INHALATION ONCE PRN PRN Reason: WHEEZING Lidocaine HCl (Lidocaine 1% Inj 20 Ml) 0.1 ml INTRADERMA PRN PRN PRN Reason: anesthetic prior to IV start Stop: 09/21/22 07:44 Meperidine HCl (Meperidine 50 Mg/Ml Inj) 12.5 mg IVP Q5M PRN PRN Reason: Shivering PACU Phase I Stop: 09/21/22 08:31 Metoclopramide HCl (Metoclopramide 5 Mg/Ml Sdv 2 Ml) 10 mg IVP ONCE PRN PRN Reason: N/V if zofran ineffective Metoclopramide HCl (Metoclopramide 5 Mg/Ml Sdv 2 Ml) 10 mg IVP Q5M PRN PRN Reason: Nausea unrelieved by Zofran Stop: 09/21/22 08:31 Metoprolol Tartrate (Metoprolol Tartrate 1 Mg/1 Ml Sdv 5 Ml) 2.5 mg IVP ONCE ONE Stop: 09/19/22 23:48 Last Admin: 09/19/22 23:56 Dose: 2.5 mg Midazolam HCl (Midazolam 1 Mg/Ml Inj 2 Ml) 2 mg IVP Q5M PRN PRN Reason: Preop Anxiety Midazolam HCl (Midazolam 1 Mg/Ml Inj 5 Ml) 5 mg IVP ONCE PRN PRN Reason: Per anesthesia for block Morphine Sulfate (Morphine 4 Mg/Ml Sdv 1 Ml) 2 mg IVP Q5M PRN PRN Reason: Pain level 2-5 PACU Phase I Stop: 09/21/22 08:31 Morphine Sulfate (Morphine 4 Mg/Ml Sdv 1 Ml) 0 mg IVP Q5M PRN PRN Reason: Breakthrough Pain PACU PhaseII Morphine Sulfate (Morphine 4 Mg/Ml Sdv 1 Ml) 2 mg IVP Q2M PRN PRN Reason: Pain level 6-10 PACU Phase I Stop: 09/21/22 08:31 Ondansetron HCl (Ondansetron 2 Mg/Ml Sdv 2 Ml) 4 mg IVP Q5M PRN PRN Reason: NAUSEA AND VOMITING Ondansetron HCl (Ondansetron 2 Mg/Ml Sdv 2 Ml) 4 mg IVP Q15M PRN PRN Reason: Nausea/Vomiting PACU PHASE II Ondansetron HCl (Ondansetron 2 Mg/Ml Sdv 2 Ml) 4 mg IVP Q5M PRN PRN Reason: Nausea PACU Phase I Stop: 09/21/22 08:31 Scopolamine (Scopolamine 1.5 Patch) 1 patch TRANSDERMA ONCE PRN PRN Reason: Nausea/ Vomiting Prophylaxis Allergies levofloxacin [From Levaquin] Allergy (Verified 08/09/22 09:46) NA metronidazole [From Flagyl] Allergy (Verified 08/09/22 09:46) NA miconazole Allergy (Verified 08/09/22 09:46) NA Sulfa (Sulfonamide Antibiotics) Allergy (Verified 08/09/22 09:46) NA sulfamethoxazole [From Bactrim] Allergy (Verified 08/09/22 09:46) Unknown trimethoprim [From Bactrim] Allergy (Verified 08/09/22 09:46) Unknown Home Medications escitalopram oxalate 20 mg tablet 20 mg PO DAILY@12/01/19 [History Confirmed 09/19/22] solifenacin 5 mg tablet (Vesicare) 5 mg PO DAILY@12/01/19 [History Confirmed 09/19/22] topiramate 100 mg tablet (Topamax) 100 mg PO DAILY@12/01/19 [History Confirmed 09/19/22] cyclobenzaprine 10 mg tablet 10 mg PO Q8H PRN muscle spasms 10/12/20 [History Confirmed 09/19/22] blood sugar diagnostic (Accu-Chek Gaby Plus test strips) #10 ea 10/15/20 [Rx Confirmed 09/19/22] blood-glucose meter (Accu-Chek Gaby Plus Meter) #1 ea 10/15/20 [Rx Confirmed 09/19/22] lancets (Accu-Chek Multiclix Lancet) #100 ea 10/15/20 [Rx Confirmed 09/19/22] metoprolol succinate 200 mg tablet,extended release 24 hr 200 mg PO DAILY@12/17/20 [History Confirmed 09/19/22] ascorbic acid (vitamin C) 1,000 mg tablet 1,000 mg PO BID@,05/01/21 [History Confirmed 09/19/22] methenamine hippurate 1 gram tablet (Hiprex) 1 g PO BID@,05/01/21 [History Confirmed 09/19/22] sitagliptin 50 mg tablet (Januvia) 50 mg PO DAILY@05/01/21 [History Confirmed 09/19/22] bisacodyl 10 mg rectal suppository 10 mg MD DAILY PRN Constipation 08/03/21 [History Confirmed 09/19/22] insulin glargine 100 unit/mL (3 mL) subcutaneous pen (Lantus Solostar U-100 Insulin) 22 unit SUBCUT BEDTIME@08/03/21 [History Confirmed 09/19/22] hydrocodone 5 mg-acetaminophen 325 mg tablet 1 tab PO Q4H PRN Pain 11/20/21 [History Confirmed 09/19/22] polyethylene glycol 3350 17 gram/dose oral powder (Miralax) 17 g PO DAILY PRN Constipation 12/29/21 [History Confirmed 09/19/22] sennosides 8.6 mg tablet (senna) 8.6 mg PO Q12H PRN Constipation 12/29/21 [History Confirmed 09/19/22] tramadol 50 mg tablet 50 mg PO Q6H PRN Pain 12/29/21 [History Confirmed 09/19/22] amlodipine 10 mg tablet 10 mg PO DAILY@01/05/22 [History Confirmed 09/19/22] clopidogrel 75 mg tablet 75 mg PO DAILY@01/05/22 [History Confirmed 09/19/22] magnesium hydroxide 400 mg/5 mL oral suspension (Milk of Magnesia) 30 ml PO DAILY PRN Constipation 07/10/22 [History Confirmed 09/19/22] mupirocin 2 % topical ointment See Rx Instructions .Route .COMPLEX 07/10/22 [History Confirmed 09/19/22] ondansetron HCl 4 mg tablet 4 mg PO Q6H PRN Nausea 07/10/22 [History Confirmed 09/19/22] acetaminophen 325 mg tablet (Tylenol) 650 mg PO Q4H PRN Pain 08/09/22 [History Confirmed 09/19/22] citric ac 1980.6 mg-glucono 59.4 mg-mag carb 980.4 mg/30 mL irrig.soln (Renacidin) See Rx Instructions .Route .COMPLEX 08/09/22 [History Confirmed 09/19/22] pravastatin 80 mg tablet 80 mg PO DAILY@19 08/09/22 [History Confirmed 09/19/22] sodium phosphates 19 gram-7 gram/118 mL enema (Enema Disposable) 118 ml MD DAILY PRN Constipation 08/09/22 [History Confirmed 09/19/22] hydroxyzine HCl 25 mg tablet 25 mg PO Q6H PRN Itching 09/19/22 [History Confirmed 09/19/22] nystatin 100,000 unit/gram topical cream See Rx Instructions .Route .COMPLEX 09/19/22 [History Confirmed 09/19/22] Discharge Plan Discharge Patient Disposition: Home Condition: Stable Prescriptions: No Action Januvia 50 mg tablet 50 mg PO DAILY@07 methenamine hippurate [Hiprex] 1 gram tablet 1 g PO BID@, ascorbic acid (vitamin C) 1,000 mg tablet 1,000 mg PO BID@, escitalopram oxalate 20 mg tablet 20 mg PO DAILY@07 solifenacin [Vesicare] 5 mg tablet 5 mg PO DAILY@07 topiramate [Topamax] 100 mg tablet 100 mg PO DAILY@07 bisacodyl 10 mg suppository 10 mg MD DAILY PRN (Reason: Constipation) Lantus Solostar U-100 Insulin 100 unit/mL (3 mL) insulin pen 22 unit SUBCUT BEDTIME@19 hydrocodone-acetaminophen 5-325 mg tablet 1 tab PO Q4H PRN (Reason: Pain) magnesium hydroxide [Milk of Magnesia] 400 mg/5 mL suspension 30 ml PO DAILY PRN (Reason: Constipation) mupirocin 2 % ointment See Rx Instructions .ROUTE .COMPLEX Rx Instructions: apply topically to stoma site and cover with a split sponge daily ondansetron HCl 4 mg tablet 4 mg PO Q6H PRN (Reason: Nausea) cyclobenzaprine 10 mg tablet 10 mg PO Q8H PRN (Reason: muscle spasms) (DME) blood-glucose meter [Accu-Chek Gaby Plus Meter] Mis See Rx Instructions .ROUTE .MEDSUPPLY Qty: 1 0RF Rx Instructions: As directed (DME) Accu-Chek Gaby Plus test strp Strip See Rx Instructions .ROUTE .MEDSUPPLY Qty: 10 0RF Rx Instructions: As directed (DME) lancets [Accu-Chek Multiclix Lancet] Misc See Rx Instructions .ROUTE .MEDSUPPLY Qty: 100 0RF Rx Instructions: As directed metoprolol succinate 200 mg tablet extended release 24 hr 200 mg PO DAILY@07 clopidogrel 75 mg Tablet 75 mg PO DAILY@07 amlodipine 10 mg Tablet 10 mg PO DAILY@07 sennosides [senna] 8.6 mg Tablet 8.6 mg PO Q12H PRN (Reason: Constipation) tramadol 50 mg Tablet 50 mg PO Q6H PRN (Reason: Pain) polyethylene glycol 3350 [Miralax] 17 gram/dose Powder 17 g PO DAILY PRN (Reason: Constipation) nystatin 100,000 unit/gram cream See Rx Instructions .ROUTE .COMPLEX Rx Instructions: apply to back topically two times a day for rash untill resolved hydroxyzine HCl 25 mg tablet 25 mg PO Q6H PRN (Reason: Itching) pravastatin 80 mg Tablet 80 mg PO DAILY@19 acetaminophen [Tylenol] 325 mg Tablet 650 mg PO Q4H PRN (Reason: Pain) Enema Disposable 19-7 gram/118 mL Enema 118 ml MD DAILY PRN (Reason: Constipation) Renacidin 1,980.6 mg-59.4 mg-980.4mg/30mL solution See Rx Instructions .ROUTE .COMPLEX Rx Instructions: 30 cc via irrigation every day and evening shift Referrals: Vu Neil Jr, MD [Primary Care Provider] - Patient Instructions: Opioid Safety Transfer Attestations Time Spent in Transfer Care: less than 30 min Status at Transfer: Cognitive status at transfer: cognitively intact ; Behavioral status at transfer: cooperative ; Quality Metrics Clinical Quality Measures [ No reported AMI, CVA or VTE this stay] Coding Level of Care Code Acute 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
--- NOTE | 2022-09-20 10:51 | PC.NURSE ---
insulin was held at 0800 accu check 196 but pt npo...dr jensen was notified...pt remains npo
[2022-09-20] MEDS: dextrose 5%-sod chloride 0.45% 1,000 ML 75 ML IV (11:03)
[2022-09-20 11:33] LABS: Glucose Point of Care 169 mg/dL (70-110)
[2022-09-20] MEDS: insulin lispro 100 unit/1 mL SUBCUT (12:14)
--- NOTE | 2022-09-20 12:25 | ANE.PACU2 ---
Inpatient post-anesthesia follow up: Airway intact: Yes Vital signs: Temperature 97.9 F Pulse Rate 82 Respiratory Rate 16 Blood Pressure 145/82 Pulse Oximetry 97 Oxygen Delivery Me thod [ Room Air Current Rate & Del tyesha] Oxygen Delivery Me thod Nasal Cannula Oxygen Flow Rate [ Current Rate 2 & Delivery] Oxygen Flow Rate 2 Fraction of Inspir ed Oxygen Hydration adequate: Yes Nausea and vomiting: No Pain level: 1 Mental status: Baseline
--- NOTE | 2022-09-20 14:16 | PC.NURSE ---
REPORT FOR PT TRANSFER TO [facility] GIVE TO Ida CUNNINGHAM....He has no further questions about the pt and thanked me for giving him pt report
== END 2022-09-20 15:55 | disposition short-term general hospital (02) | DRG 693 ==
LOC: ER 23:50 → MEDSURG 09-19 00:06
PROVIDERS: Urology; Admitting Provider Student in an Organized Health Care Education/Training Program; Emergency Provider Emergency Medicine; PCP Family Medicine; Visit Provider Student in an Organized Health Care Education/Training Program
PROC: 0TJB8ZZ Inspection of Bladder, Via Natural or Artificial Opening Endoscopic (ICD-10-PCS; CPT 52000; principal; 2022-09-20 08:15)
PROC: 0TJ98ZZ Inspection of Ureter, Via Natural or Artificial Opening Endoscopic (ICD-10-PCS; CPT 52351; 2022-09-20 08:15)
PROC: 0T2BX0Z Change Drainage Device in Bladder, External Approach (ICD-10-PCS; CPT 74420; 2022-09-20 08:15)
DX: N11.1 Chronic obstructive pyelonephritis (principal); G93.41 Metabolic encephalopathy; I69.954 Hemiplegia and hemiparesis following unspecified cerebrovascular disease affecting left non-dominant side; N17.9 Acute kidney failure, unspecified; N30.00 Acute cystitis without hematuria; Z74.01 Bed confinement status; Z96.0 Presence of urogenital implants; E11.22 Type 2 diabetes mellitus with diabetic chronic kidney disease; I12.9 Hypertensive chronic kidney disease with stage 1 through stage 4 chronic kidney disease, or unspecified chronic kidney disease; N18.9 Chronic kidney disease, unspecified; F32.A Depression, unspecified; E78.5 Hyperlipidemia, unspecified; N31.9 Neuromuscular dysfunction of bladder, unspecified; E66.9 Obesity, unspecified; Z68.30 Body mass index [BMI] 30.0-30.9, adult; Z87.440 Personal history of urinary (tract) infections; Z87.891 Personal history of nicotine dependence; Z79.02 Long term (current) use of antithrombotics/antiplatelets; Z79.891 Long term (current) use of opiate analgesic; Z79.4 Long term (current) use of insulin; Z87.442 Personal history of urinary calculi; F03.90 Unspecified dementia, unspecified severity, without behavioral disturbance, psychotic disturbance, mood disturbance, and anxiety
CPT/HCPCS: 36415; 36416; 36600; 70496; 70498; 71045; 74176; 76000; 80053; 81001; 82140; 82803; 82962; 83605; 83735; 84443; 84484; 85025; 85610; 87040; 87077; 87086; 87186; 93005; 96365; 96372; 99285; J0131; J0696; J1650; J1815; J2543; J3010; J3490; J7030; J7799; Q9967

== ENCOUNTER 2022-10-11 10:12 | Emergency (ER) | payer MEDICARE, MEDICAID, SELFPAY ==
[2022-10-11 10:25] VITALS: BP 163/103; PULSE 79; RESP 18; TEMP 36.7; O2SAT 95
--- NOTE | 2022-10-11 10:39 | W.ED.GENADLT ---
HPI - General Adult General: Chief complaint: General Medical Stated complaint: right kidney pain Time Seen by Provider: 10/11/22 10:21 Source: patient Mode of arrival: ambulatory History of Present Illness: 57-year-old female presents emergency room recently had a ureteral stent on the right. She has a suprapubic catheter. She has some right flank pain. She denies any fever she is post to get hydrocodone for pain but evidently her last dose was yesterday she is coming in today for right-sided flank pain. Onset (ago): hour(s) Location: right (Flank) Severity: moderate Quality: sharp Pain Consistency: intermittent Relieving factors: none Exacerbating factors: none Associated symptoms: Deny chest pain, confusion, cough, diaphoresis, decreased appetite, dyspnea, fevers/chills, headache(s), malaise, nausea, rash, palpitations, seizures, short of breath, syncope, vomiting or weakness Treatments prior to arrival: none Review of Systems Const: Denies: fever(s), chills, malaise or diaphoresis ENMT: Denies: throat pain, ear or mastoid pain, nasal discharge or nasal congestion Card: Denies: chest pain, palpitations or syncope Resp: Denies: dyspnea GI: Denies: nausea or vomiting : Denies: flank pain, difficulty voiding, dysuria, urinary frequency or urinary urgency Skin/Breast: Denies: rash Neuro: Denies: headache(s) or confusion PFS ED PFSH: Medical History Acute cystitis Acute ischemic multifocal multiple vascular territories stroke Acute kidney injury EFREN (acute kidney injury) EFREN (acute kidney injury) Altered mental status CKD (chronic kidney disease) CVA (cerebral vascular accident) left hemiparesis Cystitis Dehydration Depression Diabetes mellitus Diabetes mellitus, type II a1c 10/2020 12.7 Dyslipidemia Encephalopathy Feeling grief Groin ulcer Headache History of CVA (cerebrovascular accident) History of ischemic vertebrobasilar artery thalamic stroke History of seizure on topamax History of stroke Hypertension hypertensive emergency 10/2020 Hypertension Left pontine stroke Macular degeneration Neurogenic bladder suprapubic catheter, Obesity Obstructive pyelonephritis Recurrent obstructive pyelonephritis Recurrent UTI Requires assistance with activities of daily living (ADL) Seizures TIA (transient ischemic attack) Ulcer of sacral region, stage 1 x 2, one on each buttock Urethral pain UTI (urinary tract infection) Surgical History H/O detached retina repair H/O oral surgery History of suprapubic catheter came out in 2019, not replaced S/P appendectomy S/P cataract surgery S/P cholecystectomy S/P knee surgery S/P shoulder surgery Family History Father Cancer Lymphoma Mother CAD (coronary artery disease) Diabetes Chronic kidney disease (CKD) Social History Smoking and tobacco status: former smoker Alcohol intake: never Caregiver/support person: No Lives independently: No Marital status: Marital status details: 12/17/20 Current occupational status: disabled Physical Exam Const: GENERAL APPEARANCE: cooperative and comfortable ORIENTATION/CONSCIOUSNESS: Yes awake HENMT: COMMON NORMALS: normocephalic, atraumatic and hearing grossly normal bilaterally HEAD & SCALP: normocephalic and atraumatic Resp: COMMON NORMALS: normal respiratory effort, No retractions, No use of accessory muscles and clear to auscultation bilaterally AUSCULTATION: clear to auscultation bilaterally Cardio: COMMON NORMALS: regular rate, regular rhythm and No murmurs present (Cardio) RATE: regular rate RHYTHM: regular rhythm GI: COMMON NORMALS: Soft to palpation and No hepatosplenomegaly present AUSCULTATION: Yes normoactive bowel sounds PALPATION: Yes Soft to palpation, No Tenderness to palpation present (GI), No Guarding due to palpation present (GI) and Yes No hepatosplenomegaly present Extremity: COMMON NORMALS: normal to inspection, capillary refill normal, no clubbing, cyanosis or edema, no calf tenderness and no pedal edema Skin: COMMON NORMALS: no rashes or lesions noted GENERAL SKIN EXAM: no rashes or lesions noted Course Vital Signs: Vital signs: Vital Signs Temperature 98.0 F 10/11/22 10:25 Pulse Rate 66 10/11/22 13:30 Respiratory Rate 18 10/11/22 11:30 Blood Pressure 159/100 10/11/22 13:30 Pulse Oximetry 94 10/11/22 13:30 Oxygen Delivery Me thod 10/11/22 10:25 MDM - General Adult Medical Decision Making Catheter is functioning normally she does appear to have a mild cystitis White count normal started with antibiotics follow-up with her primary care doctor. Return if worsens. Medical Records I reviewed the patient's medical records. Lab Data I reviewed the patient's lab results. 10/11/22 10:34 10/11/22 10:34 Laboratory Results WBC 6.3 10^3/uL (4.0-10.0) 10/11/22 10:34 RBC 4.30 10^6/uL (4.1-5.3) 10/11/22 10:34 Hgb 11.3 g/dL (11.5-15.3) L 10/11/22 10:34 Hct 37.1 % (37.0-47.0) 10/11/22 10:34 MCV 86.3 fl (81-99) 10/11/22 10:34 MCH 26.3 pg (28.0-34.0) L 10/11/22 10:34 MCHC 30.5 g/dL (30.0-36.0) 10/11/22 10:34 RDW 14.0 % (12.1-15.1) 10/11/22 10:34 Plt Count 277 10^3/cmm (130-400) 10/11/22 10:34 MPV 9.7 fL (7.4-10.4) 10/11/22 10:34 Neut % (Auto) 63.6 % 10/11/22 10:34 Lymph % (Auto) 25.1 % 10/11/22 10:34 [place] % (Auto) 6.7 % 10/11/22 10:34 Eos % (Auto) 2.7 % 10/11/22 10:34 Baso % (Auto) 0.6 % 10/11/22 10:34 Neut # (Auto) 3.98 10^3/uL (1.8-7.7) 10/11/22 10:34 Lymph # (Auto) 1.6 10^3/uL (0.8-4.8) 10/11/22 10:34 [place] # (Auto) 0.4 10^3/uL (0.2-0.9) 10/11/22 10:34 Eos # (Auto) 0.2 10^3/uL (0.0-0.8) 10/11/22 10:34 Baso # (Auto) 0.0 10^3/uL (0.0-0.1) 10/11/22 10:34 Nucleated RBC % (auto) 0 % 10/11/22 10:34 Nucleated RBCs # 0.0 /100WBC 10/11/22 10:34 Sodium 137 mmol/L (136-145) 10/11/22 10:34 Potassium 4.8 mmol/L (3.5-5.1) 10/11/22 10:34 Chloride 99 mmol/L (98-107) 10/11/22 10:34 Carbon Dioxide 24 mmol/L (22-29) 10/11/22 10:34 Anion Gap 18.8 (5-19) 10/11/22 10:34 BUN 17 mg/dL (6-20) 10/11/22 10:34 Creatinine 1.6 mg/dL (0.5-0.9) H 10/11/22 10:34 GFR Calculation 33.1 mL/min (90-130) L 10/11/22 10:34 Glucose 255 mg/dL (65-115) H 10/11/22 10:34 Calculated Osmolality 294 mOsm/kg (285-295) 10/11/22 10:34 Calcium 9.0 mg/dL (8.5-10.5) 10/11/22 10:34 Urine Color Yellow (Yellow) 10/11/22 11:27 Urine Appearance Cloudy (CLEAR) A 10/11/22 11:27 Urine pH 7 (5-7) 10/11/22 11:27 Ur Specific [place] 1.010 (1.005-1.030) 10/11/22 11:27 Urine Protein 2+ (Negative) H 10/11/22 11:27 Urine Glucose (UA) Norm (Normal) 10/11/22 11:27 Urine Ketones Negative (Negative) 10/11/22 11:27 Urine Blood 3+ (Negative) H 10/11/22 11:27 Urine Nitrate Positive (Negative) H 10/11/22 11:27 Urine Bilirubin Neg (Negative) 10/11/22 11:27 Urine Urobilinogen Neg mg/dL (Negative) 10/11/22 11:27 Ur Leukocyte Esterase 2+ (Negative) H 10/11/22 11:27 Urine RBC Too numerous to cnt /hpf (0-2) H 10/11/22 11:27 Urine WBC Too numerous to cnt /hpf (0-5) H 10/11/22 11:27 Ur Squamous Epith Cells None /hpf (0-5) 10/11/22 11:27 Amorphous Sediment Not Reportable 10/11/22 11:27 Urine Bacteria 2+ /hpf (NONE) H 10/11/22 11:27 Discharge Plan Discharge Patient Disposition: Home Clinical Impression: Chronic suprapubic catheter, Cystitis Condition: Stable Prescriptions: No Action methenamine hippurate [Hiprex] 1 gram tablet 1 g PO BID@, ascorbic acid (vitamin C) 1,000 mg tablet 1,000 mg PO BID@, escitalopram oxalate 20 mg tablet 20 mg PO DAILY@07 solifenacin [Vesicare] 5 mg tablet 5 mg PO DAILY@07 topiramate [Topamax] 100 mg tablet 100 mg PO DAILY@07 bisacodyl 10 mg suppository 10 mg [place] DAILY PRN (Reason: Constipation) Lantus Solostar U-100 Insulin 100 unit/mL (3 mL) insulin pen 22 unit SUBCUT BEDTIME@19 hydrocodone-acetaminophen 5-325 mg tablet 1 tab PO Q4H PRN (Reason: Pain) magnesium hydroxide [Milk of Magnesia] 400 mg/5 mL suspension 30 ml PO DAILY PRN (Reason: Constipation) ondansetron HCl 4 mg tablet 4 mg PO Q6H PRN (Reason: Nausea) cyclobenzaprine 10 mg tablet 10 mg PO Q8H PRN (Reason: muscle spasms) (DME) blood-glucose meter [Accu-Chek Gaby Plus Meter] Misc See Rx Instructions .ROUTE .MEDSUPPLY Qty: 1 0RF Rx Instructions: As directed (DME) Accu-Chek Gaby Plus test strp Strip See Rx Instructions .ROUTE .MEDSUPPLY Qty: 10 0RF Rx Instructions: As directed (DME) lancets [Accu-Chek Multiclix Lancet] Misc See Rx Instructions .ROUTE .MEDSUPPLY Qty: 100 0RF Rx Instructions: As directed metoprolol succinate 200 mg tablet extended release 24 hr 200 mg PO DAILY@07 clopidogrel 75 mg Tablet 75 mg PO DAILY@07 amlodipine 10 mg Tablet 10 mg PO DAILY@07 sennosides [senna] 8.6 mg Tablet 8.6 mg PO Q12H PRN (Reason: Constipation) tramadol 50 mg Tablet 50 mg PO Q6H PRN (Reason: Pain) polyethylene glycol 3350 [Miralax] 17 gram/dose Powder 17 g PO DAILY PRN (Reason: Constipation) hydroxyzine HCl 25 mg tablet 25 mg PO Q6H PRN (Reason: Itching) Januvia 50 mg Tablet 50 mg PO DAILY Saccharomyces boulardii 250 mg Capsule 250 mg PO BID potassium chloride 20 mEq Tablet Extended Release 20 meq PO DAILY pravastatin 80 mg Tablet 80 mg PO DAILY@19 acetaminophen [Tylenol] 325 mg Tablet 650 mg PO Q4H PRN (Reason: Pain) Enema Disposable 19-7 gram/118 mL Enema 118 ml MA DAILY PRN (Reason: Constipation) Discharge Orders: Discharge ED (Routine); Ordered 10/11/22 Ordered By: Vitaliy Dunn Referrals: Vu Neil Jr, MD [Primary Care Provider] - Discharge Diet: Usual diet Discharge Activity: Increase activity as tolerated Patient Instructions: Opioid Safety, Pain Management Activity Restrictions/Additional Instructions: You were seen today for right flank pain. Your catheter is functioning appropriately does look like you may have a mild urinary tract infection although your white count is normal. We will start on Macrobid 1 pill twice a day until the culture results are back continue to use your pain medication regularly at the retirement to prevent discomfort. Coding Level of Care Code ED Clinical Assessment Manager for Ish Fwd Exam Detailed
[2022-10-11] MEDS: HYDROcodone-acetaminophen 5-325 mg Tablet 2 TAB PO (10:41)
[2022-10-11 10:43] LABS: Basophils % 0.6 %; Eosinophils # 0.2 10^3/uL (0.0-0.8); Eosinophils % 2.7 %; Hematocrit 37.1 % (37.0-47.0); Hemoglobin 11.3 g/dL (11.5-15.3); Lymphocytes # 1.6 10^3/uL (0.8-4.8); Lymphocytes % 25.1 %; Mean Corpuscular HGB Conc 30.5 g/dL (30.0-36.0); Mean Corpuscular Hemoglobin 26.3 pg (28.0-34.0); Mean Corpuscular Volume 86.3 fl (81-99); Mean Platelet Volume 9.7 fL (7.4-10.4); Monocytes # 0.4 10^3/uL (0.2-0.9); Monocytes % 6.7 %; Neutrophils # 3.98 10^3/uL (1.8-7.7); Neutrophils % 63.6 %; Nucleated Red Blood Cells % 0 %; Platelet Count 277 10^3/cmm (130-400); White Blood Count 6.3 10^3/uL (4.0-10.0)
[2022-10-11 11:00] VITALS: BP 154/104; PULSE 68; RESP 16; O2SAT 96
[2022-10-11 11:11] LABS: Anion Gap 18.8 (5-19); Blood Urea Nitrogen 17 mg/dL (6-20); Carbon Dioxide 24 mmol/L (22-29); Chloride 99 mmol/L (98-107); Glomerular Filtration Rate 33.1 mL/min (90-130); Glucose 255 mg/dL (65-115); Osmolality Calculated 294 mOsm/kg (285-295); Potassium 4.8 mmol/L (3.5-5.1); Sodium 137 mmol/L (136-145)
[2022-10-11 11:30] VITALS: BP 165/97; PULSE 68; RESP 18; O2SAT 95
[2022-10-11 11:39] LABS: Blood Urine 3+ (Negative); Glucose Urine UA Norm (Normal); Ketones Urine Negative (Negative); Protein Urine 2+ (Negative); Urine Appearance Cloudy (CLEAR); Urine Color Yellow (Yellow); pH Urine 7 (5-7)
[2022-10-11 11:40] LABS: Add Urine Microscopic? YES; Bilirubin Urine Neg (Negative); Leukocyte Esterase Urine 2+ (Negative); Nitrate Urine Positive (Negative); Urobilinogen Urine Neg (Negative)
[2022-10-11 12:30] VITALS: BP 172/102; PULSE 72; O2SAT 94
[2022-10-11 12:37] LABS: RBC Urine TOO NUMEROUS TO CNT /hpf (0-2); WBC Urine TOO NUMEROUS TO CNT /hpf (0-5)
[2022-10-11 12:38] LABS: Add Urine Culture? Yes; Bacteria Urine 2+ /hpf
[2022-10-11 13:30] VITALS: BP 159/100; PULSE 66; O2SAT 94
== END 2022-10-11 17:50 | disposition home or self-care (01) ==
PROVIDERS: Emergency Provider Family Medicine; PCP Family Medicine
DX: N30.90 Cystitis, unspecified without hematuria (principal); Z79.02 Long term (current) use of antithrombotics/antiplatelets; Z79.4 Long term (current) use of insulin; Z87.891 Personal history of nicotine dependence; E11.22 Type 2 diabetes mellitus with diabetic chronic kidney disease; I12.9 Hypertensive chronic kidney disease with stage 1 through stage 4 chronic kidney disease, or unspecified chronic kidney disease; N18.9 Chronic kidney disease, unspecified; Z86.73 Personal history of transient ischemic attack (TIA), and cerebral infarction without residual deficits; H35.30 Unspecified macular degeneration; Z87.440 Personal history of urinary (tract) infections; Z96.0 Presence of urogenital implants
CPT/HCPCS: 80048; 81001; 85025; 87077; 87086; 87186; 99283

== ENCOUNTER 2022-11-01 17:09 | Emergency (ER) | payer MEDICARE, MEDICAID, SELFPAY ==
[2022-11-01 17:26] VITALS: PULSE 73; O2SAT 98; BMI 32.3
[2022-11-01 18:41] VITALS: O2SAT 92
--- NOTE | 2022-11-01 18:44 | ED_ITS ---
HPI - General Adult General: Chief complaint: General Medical Stated complaint: NEPH TUBE INFECTION Time Seen by Provider: 11/01/22 17:44 History of Present Illness: Patient is brought in with concerns for infection around her nephrostomy tube. When the nurse went to change the dressing they were concerned that purulent material was draining around it. Patient states that when she gets infected she gets septic quickly. She denies any fever, back pain, belly pain, vomiting. Associated symptoms: Deny chest pain, dyspnea, headache(s), nausea, rash, palpitations or vomiting Review of Systems Const: Denies: fever(s) or body aches Eyes: Denies: change in vision or blurry vision ENMT: Denies: throat pain or odynophagia Card: Denies: chest pain or palpitations Resp: Denies: dyspnea or productive cough GI: Denies: abdominal pain, nausea or vomiting : Denies: flank pain or dysuria Musc: Denies: neck pain or back pain Skin/Breast: Denies: rash or pruritus Neuro: Denies: headache(s) or numbness in extremities Psych: Denies: anxiety or change in appetite Endo: Denies: polyuria or excessive sweating PFSH ED PFSH: Medical History Acute cystitis Acute ischemic multifocal multiple vascular territories stroke Acute kidney injury EFREN (acute kidney injury) EFREN (acute kidney injury) Altered mental status CKD (chronic kidney disease) CVA (cerebral vascular accident) left hemiparesis Cystitis Dehydration Depression Diabetes mellitus Diabetes mellitus, type II a1c 10/2020 12.7 Dyslipidemia Encephalopathy Feeling grief Groin ulcer Headache History of CVA (cerebrovascular accident) History of ischemic vertebrobasilar artery thalamic stroke History of seizure on topamax History of stroke Hypertension hypertensive emergency 10/2020 Hypertension Left pontine stroke Macular degeneration Neurogenic bladder suprapubic catheter, Obesity Obstructive pyelonephritis Recurrent obstructive pyelonephritis Recurrent UTI Requires assistance with activities of daily living (ADL) Seizures TIA (transient ischemic attack) Ulcer of sacral region, stage 1 x 2, one on each buttock Urethral pain UTI (urinary tract infection) Surgical History H/O detached retina repair H/O oral surgery History of suprapubic catheter came out in 2019, not replaced S/P appendectomy S/P cataract surgery S/P cholecystectomy S/P knee surgery S/P shoulder surgery Family History Father Cancer Lymphoma Mother CAD (coronary artery disease) Diabetes Chronic kidney disease (CKD) Social History Smoking and tobacco status: former smoker Alcohol intake: never Caregiver/support person: No Lives independently: No Marital status: Marital status details: 12/17/20 Current occupational status: disabled Physical Exam Const: COMMON NORMALS: no acute distress, patient oriented x3 and alert HENMT: COMMON NORMALS: normocephalic and atraumatic HEAD & SCALP: normocephalic and atraumatic Eye: COMMON NORMALS: Equal, round and reactive pupils present and EOMs intact bilaterally PUPIL: Yes Equal, round and reactive pupils present Neck/C-Spine: COMMON NORMALS: full ROM and supple Resp: COMMON NORMALS: normal respiratory effort, No retractions and No use of accessory muscles Cardio: COMMON NORMALS: regular rate and regular rhythm RATE: regular rate RHYTHM: regular rhythm GI: COMMON NORMALS: Soft to palpation and non-tender PALPATION: Yes Soft to palpation OTHER: nephrostomy tube in the right that has a small amount of mucus-like material coming from the hole but no purulent or other infectious material. No erythema surrounding the tube. She has a suprapubic cath that also has no surrounding er ythema or signs of infection. Back/Pelvis: COMMON NORMALS: thoracic and lumbar spine normal to inspection and no thoracic nor lumbar tenderness Extremity: COMMON NORMALS: normal to inspection and full ROM Neuro: COMMON NORMALS: patient oriented x3 SENSORIUM/ORIENTATION: Yes alert Psych: COMMON NORMALS: mental status grossly normal and cooperative Skin: OTHER: Multiple stage I decubitus ulcers Course Vital Signs: Vital signs: Vital Signs Pulse Rate 65 11/01/22 19:30 Respiratory Rate 16 11/01/22 21:00 Blood Pressure 151/89 11/01/22 21:00 Pulse Oximetry 96 11/01/22 21:00 Oxygen Delivery Me thod 11/01/22 21:00 MDM - General Adult Medical Decision Making Patient is brought in with concerns for infection around her nephrostomy tube. When the nurse went to change the dressing they were concerned that purulent material was draining around it. Patient states that when she gets infected she gets septic quickly. She denies any fever, back pain, belly pain, vomiting. On physical exam she has a nephrostomy tube in the right that has a small amount of mucus-like material coming from the hole but no purulent or other infectious material. No erythema surrounding the tube. She has a suprapubic cath that also has no surrounding erythema or signs of infection. Urine coming out of the suprapubic cath as purulent solid material in it. We will send a urine sample from both tubes, check labs, and reassess. On reassessment I talked to the patient about the test results. We will place her on antibiotics for urinary tract infection and discharge with precautions to return for worsening or changing symptoms. Lab Data 11/01/22 19:20 11/01/22 19:20 Laboratory Results WBC 6.8 10^3/uL (4.0-10.0) 11/01/22 19:20 RBC 4.27 10^6/uL (4.1-5.3) 11/01/22 19:20 Hgb 11.5 g/dL (11.5-15.3) 11/01/22 19:20 Hct 37.1 % (37.0-47.0) 11/01/22 19:20 MCV 86.9 fl (81-99) 11/01/22 19:20 MCH 26.9 pg (28.0-34.0) L 11/01/22 19:20 MCHC 31.0 g/dL (30.0-36.0) 11/01/22 19:20 RDW 14.3 % (12.1-15.1) 11/01/22 19:20 Plt Count 332 10^3/cmm (130-400) 11/01/22 19:20 MPV 9.3 fL (7.4-10.4) 11/01/22 19:20 Neut % (Auto) 57.5 % 11/01/22 19:20 Lymph % (Auto) 32.1 % 11/01/22 19:20 [place] % (Auto) 6.6 % 11/01/22 19:20 Eos % (Auto) 2.5 % 11/01/22 19:20 Baso % (Auto) 0.6 % 11/01/22 19:20 Neut # (Auto) 3.92 10^3/uL (1.8-7.7) 11/01/22 19:20 Lymph # (Auto) 2.2 10^3/uL (0.8-4.8) 11/01/22 19:20 [place] # (Auto) 0.5 10^3/uL (0.2-0.9) 11/01/22 19:20 Eos # (Auto) 0.2 10^3/uL (0.0-0.8) 11/01/22 19:20 Baso # (Auto) 0.0 10^3/uL (0.0-0.1) 11/01/22 19:20 Nucleated RBC % (auto) 0 % 11/01/22 19:20 Nucleated RBCs # 0.0 /100WBC 11/01/22 19:20 Sodium 137 mmol/L (136-145) 11/01/22 19:20 Potassium 4.7 mmol/L (3.5-5.1) 11/01/22 19:20 Chloride 104 mmol/L (98-107) 11/01/22 19:20 Carbon Dioxide 21 mmol/L (22-29) L 11/01/22 19:20 Anion Gap 16.7 (5-19) 11/01/22 19:20 BUN 39 mg/dL (6-20) H 11/01/22 19:20 Creatinine 2.1 mg/dL (0.5-0.9) H 11/01/22 19:20 GFR Calculation 24.2 mL/min (90-130) L 11/01/22 19:20 Glucose 229 mg/dL (65-115) H 11/01/22 19:20 Calculated Osmolality 301 mOsm/kg (285-295) H 11/01/22 19:20 Calcium 8.8 mg/dL (8.5-10.5) 11/01/22 19:20 Total Bilirubin 0.2 mg/dL (0.15-1.2) 11/01/22 19:20 AST 11 U/L (0-32) 11/01/22 19:20 ALT 9 U/L (0-33) 11/01/22 19:20 Alkaline Phosphatase 125 U/L (35-105) H 11/01/22 19:20 Total Protein 7.9 g/dL (6.6-8.7) 11/01/22 19:20 Albumin 3.7 g/dL (3.5-5.2) 11/01/22 19:20 Globulin 4.2 g/dL (1.3-4.6) 11/01/22 19:20 Urine Color Yellow (Yellow) 11/01/22 18:35 Urine Color Yellow (Yellow) 11/01/22 18:35 Urine Appearance Cloudy (CLEAR) A 11/01/22 18:35 Urine Appearance Turbid (CLEAR) A 11/01/22 18:35 Urine pH 8 (5-7) H 11/01/22 18:35 Urine pH 8 (5-7) H 11/01/22 18:35 Ur Specific [place] 1.010 (1.005-1.030) 11/01/22 18:35 Ur Specific [place] 1.010 (1.005-1.030) 11/01/22 18:35 Urine Protein 2+ (Negative) H 11/01/22 18:35 Urine Protein 2+ (Negative) H 11/01/22 18:35 Urine Glucose (UA) Norm (Normal) 11/01/22 18:35 Urine Glucose (UA) Norm (Normal) 11/01/22 18:35 Urine Ketones 1+ (Negative) H 11/01/22 18:35 Urine Ketones Negative (Negative) 11/01/22 18:35 Urine Blood 3+ (Negative) H 11/01/22 18:35 Urine Blood 3+ (Negative) H 11/01/22 18:35 Urine Nitrate Negative (Negative) 11/01/22 18:35 Urine Nitrate Negative (Negative) 11/01/22 18:35 Urine Bilirubin Neg (Negative) 11/01/22 18:35 Urine Bilirubin Neg (Negative) 11/01/22 18:35 Prot Sulfosalicylic Acd Positive (Negative) 11/01/22 18:35 Prot Sulfosalicylic Acd Positive (Negative) 11/01/22 18:35 Urine Urobilinogen Neg mg/dL (Negative) 11/01/22 18:35 Urine Urobilinogen Neg mg/dL (Negative) 11/01/22 18:35 Ur Leukocyte Esterase 2+ (Negative) H 11/01/22 18:35 Ur Leukocyte Esterase 2+ (Negative) H 11/01/22 18:35 Urine RBC 25-40 /hpf (0-2) H 11/01/22 18:35 Urine WBC >100 /hpf (0-5) H 11/01/22 18:35 Ur Squamous Epith Cells 0-4 /hpf (0-5) H 11/01/22 18:35 Ur Renal Epithelial Cell 0-4 /hpf 11/01/22 18:35 Amorphous Sediment Not Reportable 11/01/22 18:35 Urine Bacteria 2+ /hpf (NONE) H 11/01/22 18:35 Discharge Plan Discharge Patient Disposition: Home Clinical Impression: UTI (urinary tract infection) Condition: Stable Prescriptions: New cephalexin 500 mg capsule 500 mg PO Q6H 5 Days Qty: 20 0RF No Action methenamine hippurate [Hiprex] 1 gram tablet 1 g PO BID@07,19 ascorbic acid (vitamin C) 1,000 mg tablet 1,000 mg PO BID@07,19 escitalopram oxalate 20 mg tablet 20 mg PO DAILY@07 solifenacin [Vesicare] 5 mg tablet 5 mg PO DAILY@07 topiramate [Topamax] 100 mg tablet 100 mg PO DAILY@07 bisacodyl 10 mg suppository 10 mg IN DAILY PRN (Reason: Constipation) [place] Solostar U-100 Insulin 100 unit/mL (3 mL) insulin pen 22 unit SUBCUT BEDTIME@19 hydrocodone-acetaminophen 5-325 mg tablet 1 tab PO Q4H PRN (Reason: Pain) magnesium hydroxide [Milk of Magnesia] 400 mg/5 mL suspension 30 ml PO DAILY PRN (Reason: Constipation) ondansetron HCl 4 mg tablet 4 mg PO Q6H PRN (Reason: Nausea) cyclobenzaprine 10 mg tablet 10 mg PO Q8H PRN (Reason: muscle spasms) (DME) blood-glucose meter [Accu-Chek Gaby Plus Meter] Misc See Rx Instructions .ROUTE .MEDSUPPLY Qty: 1 0RF Rx Instructions: As directed (DME) Accu-Chek Gaby Plus test strp Strip See Rx Instructions .ROUTE .MEDSUPPLY Qty: 10 0RF Rx Instructions: As directed (DME) lancets [Accu-Chek Multiclix Lancet] Misc See Rx Instructions .ROUTE .MEDSUPPLY Qty: 100 0RF Rx Instructions: As directed metoprolol succinate 200 mg tablet extended release 24 hr 200 mg PO DAILY@07 clopidogrel 75 mg Tablet 75 mg PO DAILY@07 amlodipine 10 mg Tablet 10 mg PO DAILY@07 sennosides [senna] 8.6 mg Tablet 8.6 mg PO Q12H PRN (Reason: Constipation) tramadol 50 mg Tablet 50 mg PO Q6H PRN (Reason: Pain) polyethylene glycol 3350 [Miralax] 17 gram/dose Powder 17 g PO DAILY PRN (Reason: Constipation) hydroxyzine HCl 25 mg tablet 25 mg PO Q6H PRN (Reason: Itching) Januvia 50 mg Tablet 50 mg PO DAILY Saccharomyces boulardii 250 mg Capsule 250 mg PO BID potassium chloride 20 mEq Tablet Extended Release 20 meq PO DAILY pravastatin 80 mg Tablet 80 mg PO DAILY@19 acetaminophen [Tylenol] 325 mg Tablet 650 mg PO Q4H PRN (Reason: Pain) Enema Disposable 19-7 gram/118 mL Enema 118 ml IN DAILY PRN (Reason: Constipation) Discharge Orders: Discharge ED (Routine); Ordered 11/01/22 Ordered By: Kam Parham Referrals: Vu Neil Jr, MD [Primary Care Provider] - Patient Instructions: Urinary Tract Infection - Women Coding Level of Care Code ED Carpenter'S Helper for Chg Fwd Exam Comprehensive
[2022-11-01 19:30] VITALS: BP 138/71; PULSE 65; RESP 16; O2SAT 95
[2022-11-01 19:34] LABS: Add Urine Microscopic? NO
[2022-11-01 19:35] LABS: Protein Urine 2+ (Negative); Urine Appearance Cloudy (CLEAR); Urine Color Yellow (Yellow); pH Urine 8 (5-7)
[2022-11-01 19:36] LABS: Blood Urine 3+ (Negative); Ketones Urine 1+ (Negative); Leukocyte Esterase Urine 2+ (Negative)
[2022-11-01 19:37] LABS: Bilirubin Urine Neg (Negative); Glucose Urine UA Norm (Normal); Nitrate Urine Negative (Negative); Sulfosalicylic Acid Urine Positive (Negative); Urobilinogen Urine Neg (Negative)
[2022-11-01 19:40] LABS: Glucose Urine UA Norm (Normal); Protein Urine 2+ (Negative); Urine Appearance Turbid (CLEAR); Urine Color Yellow (Yellow); pH Urine 8 (5-7)
[2022-11-01 19:41] LABS: Add Urine Microscopic? YES; Bilirubin Urine Neg (Negative); Blood Urine 3+ (Negative); Ketones Urine Negative (Negative); Leukocyte Esterase Urine 2+ (Negative); Nitrate Urine Negative (Negative); Sulfosalicylic Acid Urine Positive (Negative); Urobilinogen Urine Neg (Negative)
[2022-11-01 19:43] LABS: RBC Urine 25-40 /hpf (0-2); Squamous Epithelial Cell Urine 0-4 /hpf (0-5); WBC Urine >100 /hpf (0-5)
[2022-11-01 19:44] LABS: Bacteria Urine 2+ /hpf; Renal Epithelial Cells Urine 0-4 /hpf
[2022-11-01 19:48] LABS: Basophils % 0.6 %; Eosinophils # 0.2 10^3/uL (0.0-0.8); Eosinophils % 2.5 %; Hematocrit 37.1 % (37.0-47.0); Hemoglobin 11.5 g/dL (11.5-15.3); Lymphocytes # 2.2 10^3/uL (0.8-4.8); Lymphocytes % 32.1 %; Mean Corpuscular Hemoglobin 26.9 pg (28.0-34.0); Mean Corpuscular Volume 86.9 fl (81-99); Mean Platelet Volume 9.3 fL (7.4-10.4); Monocytes # 0.5 10^3/uL (0.2-0.9); Monocytes % 6.6 %; Neutrophils # 3.92 10^3/uL (1.8-7.7); Neutrophils % 57.5 %; Nucleated Red Blood Cells % 0 %; Platelet Count 332 10^3/cmm (130-400); Red Blood Count 4.27 10^6/uL (4.1-5.3); Red Cell Distribution Width 14.3 % (12.1-15.1); White Blood Count 6.8 10^3/uL (4.0-10.0)
[2022-11-01 19:57] LABS: Alanine Aminotransferase 9 U/L (0-33); Albumin Level 3.7 g/dL (3.5-5.2); Alkaline Phosphatase 125 U/L (35-105); Anion Gap 16.7 (5-19); Aspartate Amino Transferase 11 U/L (0-32); Blood Urea Nitrogen 39 mg/dL (6-20); Calcium 8.8 mg/dL (8.5-10.5); Carbon Dioxide 21 mmol/L (22-29); Chloride 104 mmol/L (98-107); Globulin 4.2 g/dL (1.3-4.6); Glomerular Filtration Rate 24.2 mL/min (90-130); Glucose 229 mg/dL (65-115); Osmolality Calculated 301 mOsm/kg (285-295); Potassium 4.7 mmol/L (3.5-5.1); Sodium 137 mmol/L (136-145); Total Bilirubin 0.2 mg/dL (0.15-1.2); Total Protein 7.9 g/dL (6.6-8.7)
[2022-11-01 20:00] LABS: Add Urine Culture? Yes
[2022-11-01] MEDS: cefTRIAXone 1,000 MG in sodium chloride 0.9% (plus) 50 ML 100 MG IV (20:45)
[2022-11-01 21:00] VITALS: BP 151/89; RESP 16; O2SAT 96
[2022-11-01 22:42] VITALS: BP 151/89; RESP 16; O2SAT 96
== END 2022-11-01 22:43 | disposition home or self-care (01) ==
PROVIDERS: Emergency Provider Emergency Medicine; PCP Family Medicine
DX: N39.0 Urinary tract infection, site not specified (principal); Z79.02 Long term (current) use of antithrombotics/antiplatelets; Z79.4 Long term (current) use of insulin; Z87.891 Personal history of nicotine dependence; I12.9 Hypertensive chronic kidney disease with stage 1 through stage 4 chronic kidney disease, or unspecified chronic kidney disease; E11.22 Type 2 diabetes mellitus with diabetic chronic kidney disease; N18.9 Chronic kidney disease, unspecified; Z86.73 Personal history of transient ischemic attack (TIA), and cerebral infarction without residual deficits; Z87.440 Personal history of urinary (tract) infections; E78.5 Hyperlipidemia, unspecified; H35.30 Unspecified macular degeneration; Z93.6 Other artificial openings of urinary tract status
CPT/HCPCS: 80053; 81001; 85025; 87077; 87086; 87186; 96365; 99284; J0696

== ENCOUNTER 2022-12-11 08:50 | Inpatient (IN) | payer MEDICARE, MEDICAID, SELFPAY ==
[2022-12-11] VITALS (67 sets, daily range): BP systolic 114–173; BP diastolic 67–114; PULSE 70–94; RESP 14–25; TEMP 36.1–37.3; O2SAT 90–100; BMI 34.5
--- NOTE | 2022-12-11 08:52 | CT_ITS ---
WS: [id number] CT HEAD TECHNIQUE: Noncontrast CT of the head obtained from the skullbase to the vertex. CLINICAL INFORMATION: AMS COMPARISON: August 09, 2022 DLP: 1154.[address] scans at [facility] use at least one of these dose optimization techniques: automated e xposure control; mA and/or kV adjustment per patient size (includes targeted exams where dose is matc hed to clinical indication); or iterative reconstruction. FINDINGS: No evidence of intracranial hemorrhage or mass effect. Ventricular system and basal cisterns are valencia nt. Moderate small vessel changes with moderate parenchymal volume loss. Chronic lacunar infarcts in the basal ganglia unchanged. Tiny chronic lacunar infarct RIGHT caudate. Chronic lacunar infarcts in the thalamus unchanged. Intracranial vascular complication. No extra-axia l fluid collections. Paranasal sinuses and mastoid air cells are well aerated. Normal visualized soft tissues CT/CT head wo con* [id number] IMPRESSION: 1. No evidence of intracranial hemorrhage or mass effect. 2. Moderate small vessel changes with moderate parenchymal volume loss. 3. Vascular calcification. 4. Chronic lacunar infarcts in the internal capsules and thalamus bilaterally. 5. No acute intracranial findings.
--- NOTE | 2022-12-11 08:53 | CT_ITS ---
WS: [id number] CT ABDOMEN PELVIS TECHNIQUE: Noncontrast CT of the abdomen and pelvis with coronal and sagittal reformatted images. CLINICAL INFORMATION: flank pain COMPARISON: CT September 19, 2022 DLP: 1131.[address] scans at [facility] use at least one of these dose optimization techniques: automated e xposure control; mA and/or kV adjustment per patient size (includes targeted exams where dose is matc hed to clinical indication); or iterative reconstruction. FINDINGS: RIGHT double-J ureteral stent. Mild RIGHT pelvic caliectasis. No significant hydronephrosis. RIGHT ur eter is decompressed. Distal aspect of the stent appears in good position in the bladder. Moderate dilatation of the LEFT renal pelvis is new compared to previous with calculus just distal to the LEFT UPJ measuring 6 mm. LEFT calyceal staghorn type calculus measuring 16 mm mean from previous . Distal ureter at the UVJ is decompressed. Calculus debris or elongated calculus in the pelvic urete r without obstruction similar to previous Diffuse bladder wall thickening. Suprapubic catheter with nondependent air within the bladder. Noncon trast liver is normal. Cholecystectomy clips. Small esophageal hiatal hernia. Noncontrast spleen is n ormal. Hazy atelectasis in the lung bases. Fatty atrophy of the pancreas. Splenic artery calcification. Cholecystectomy. Adrenal glands are norm al. Normal caliber abdominal aorta. Moderate aortic calcification. Sigmoid constipation. No evidence of high-grade small or large bowel obstruction. Shotty periaortic and retroperitoneal lymph nodes. CT/CT kidney stone [id number] IMPRESSION: 1. RIGHT double-J ureteral stent in place. Mild RIGHT pelvocaliectasis. Distal aspect of the stent appears in good position in the bladder. RIGHT ureter is d ecompressed. 2. Moderate LEFT pelvocaliectasis is new from previous. Obstructing 6 mm proxi mal ureteral calculus. Additional LEFT calyceal staghorn calculus measuring 16 mm is new from previous. 3. Additional tubular calculus or debris in the distal LEFT ureter in the pelv is without significant obstruction similar to the prior examination. 4. Suprapubic catheter 5. Sigmoid constipation. 6. Small esophageal hiatal hernia.
--- NOTE | 2022-12-11 08:53 | XRR_ITS ---
PROCEDURE INFORMATION: Exam: XR Chest Exam date and time: 12/11/2022 9:44 AM Age: 57 years old Clinical indication: Cough and dyspnea; Patient HX: AMS; Additional info: Dyspnea/cough TECHNIQUE: Imaging protocol: Radiologic exam of the chest. Views: 1 view. COMPARISON: CR XR chest 1V portable [id number] 09/18/2022 10:56 PM FINDINGS: Lungs: Unremarkable. No consolidation. Pleural spaces: Unremarkable. No pleural effusion. No pneumothorax. Heart/Mediastinum: Unremarkable. No cardiomegaly. Bones/joints: Unremarkable. XR/XR chest 1V portable [id number] IMPRESSION: No acute findings.
--- NOTE | 2022-12-11 08:56 | ECG_ITS ---
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 Measurements Intervals Allison Rate: 91 P: 33 CO: 176 QRS: -26 QRSD: 90 T: 28 QT: 372 QTc: 458 Interpretive Statements SINUS RHYTHM BORDERLINE LEFT AXIS DEVIATION [QRS AXIS < -20] MODERATE VOLTAGE CRITERIA FOR LVH, CONSIDER NORMAL VARIANT [MEETS CRITERIA IN ONE OF: R(aVL), S(V1), R(V5), R(V5/V6)+S(V1)] INTERPRETATION BASED ON A DEFAULT AGE OF 40 YEARS Compared to ECG 09/19/2022 04:15:52 No significant changes Electronically Signed On 12-11-2022 18:12:53 COMPUTER SUPPORT SPECIALIST INSTRUCTOR by Ramu Mccracken M.D. [id number]
--- NOTE | 2022-12-11 09:04 | W.ED.GENADLT ---
HPI - General Adult General: Chief complaint: Altered Mental Status Stated complaint: ams Time Seen by Provider: 12/11/22 08:50 Source: EMS Mode of arrival: EMS History of Present Illness: 57-year-old female presents from the emergency room is poorly responsive to pain only. She is from the half-way she has a suprapubic catheter with significant amount of thick discolored urine very foul appearing. Patient is diabetic. Per half-way report they noticed a significant alteration in mental status this morning EMS said they can get her to answer some questions when she arrived here she would only respond to pain. She is an insulin-dependent diabetic. Relieving factors: none Exacerbating factors: none Associated symptoms: Reports confusion Treatments prior to arrival: none Review of Systems General: Reports: ROS unobtainable due to mental status Neuro: Reports: confusion PFSH ED PFSH: Medical History (Updated 12/11/22 @ 14:50 by Vitaliy Dunn DO) Acute cystitis Acute ischemic multifocal multiple vascular territories stroke Acute kidney injury EFREN (acute kidney injury) EFREN (acute kidney injury) Altered mental status Bilateral renal stones Partial staghorn CKD (chronic kidney disease) CVA (cerebral vascular accident) left hemiparesis Cystitis Dehydration Depression Diabetes mellitus Diabetes mellitus, type II a1c 10/2020 12.7 Dyslipidemia Encephalopathy Feeling grief Groin ulcer Headache History of CVA (cerebrovascular accident) History of ischemic vertebrobasilar artery thalamic stroke History of seizure on topamax History of stroke Hypertension hypertensive emergency 10/2020 Hypertension Left pontine stroke Macular degeneration Neurogenic bladder suprapubic catheter, Obesity Obstructive pyelonephritis Recurrent obstructive pyelonephritis Recurrent UTI Requires assistance with activities of daily living (ADL) Seizures TIA (transient ischemic attack) Ulcer of sacral region, stage 1 x 2, one on each buttock Urethral pain UTI (urinary tract infection) Surgical History H/O detached retina repair H/O oral surgery History of suprapubic catheter came out in 2019, not replaced S/P appendectomy S/P cataract surgery S/P cholecystectomy S/P knee surgery S/P shoulder surgery Family History Father Cancer Lymphoma Mother CAD (coronary artery disease) Diabetes Chronic kidney disease (CKD) Social History Smoking and tobacco status: former smoker Alcohol intake: never Caregiver/support person: No Lives independently: No Marital status: Marital status details: 12/17/20 Current occupational status: disabled Physical Exam HENMT: COMMON NORMALS: normocephalic and atraumatic HEAD & SCALP: normocephalic and atraumatic Resp: COMMON NORMALS: normal respiratory effort, No retractions, No use of accessory muscles and clear to auscultation bilaterally AUSCULTATION: clear to auscultation bilaterally Cardio: COMMON NORMALS: regular rate, regular rhythm and No murmurs present (Cardio) RATE: regular rate RHYTHM: regular rhythm GI: COMMON NORMALS: Soft to palpation and No hepatosplenomegaly present AUSCULTATION: Yes normoactive bowel sounds PALPATION: Yes Soft to palpation, No Tenderness to palpation present (GI), No Guarding due to palpation present (GI) and Yes No hepatosplenomegaly present Extremity: COMMON NORMALS: normal to inspection, capillary refill normal, no clubbing, cyanosis or edema, no calf tenderness and no pedal edema Skin: COMMON NORMALS: no rashes or lesions noted GENERAL SKIN EXAM: no rashes or lesions noted Course Vital Signs: Vital signs: Vital Signs Temperature 98.5 F 12/11/22 08:56 Pulse Rate 81 12/11/22 13:49 Respiratory Rate 19 H 12/11/22 13:49 Blood Pressure 138/77 12/11/22 13:49 Pulse Oximetry 98 12/11/22 13:49 Oxygen Delivery Me thod 12/11/22 13:49 Oxygen Flow Rate 3 12/11/22 13:49 [facility] - General Adult Medical Decision Making Obstructive pyelonephritis. She has a stone on the left 6 mm proximal ureter discussed Dr. Gama. Based on previous urine culture received and started on meropenem. Labs imaging and EKG reviewed as found on the chart. No acute EKG changes. Admit to Dr. Avitia consult Dr. Gama. Medical Records I reviewed the patient's medical records. Lab Data I reviewed the patient's lab results. 12/11/22 09:10 12/11/22 09:[address] 12/11/22 08:52 IMPRESSION: 1. No evidence of intracranial hemorrhage or mass effect. 2. Moderate small vessel changes with moderate parenchymal volume loss. 3. Vascular calcification. 4. Chronic lacunar infarcts in the internal capsules and thalamus bilaterally. 5. No acute intracranial findings. Abdomen/Pelvis CT 12/11/22 08:53 IMPRESSION: 1. RIGHT double-J ureteral stent in place. Mild RIGHT pelvocaliectasis. Distal aspect of the stent appears in good position in the bladder. RIGHT ureter is decompressed. 2. Moderate LEFT pelvocaliectasis is new from previous. Obstructing 6 mm proximal ureteral calculus. Additional LEFT calyceal staghorn calculus measuring 16 mm is new from previous. 3. Additional tubular calculus or debris in the distal LEFT ureter in the pelvis without significant obstruction similar to the prior examination. 4. Suprapubic catheter 5. Sigmoid constipation. 6. Small esophageal hiatal hernia. Chest X-Ray 12/11/22 08:53 IMPRESSION: No acute findings. Laboratory Results WBC 19.4 10^3/uL (4.0-10.0) H 12/11/22 09:10 RBC 4.56 10^6/uL (4.1-5.3) 12/11/22 09:10 Hgb 12.1 g/dL (11.5-15.3) 12/11/22 09:10 Hct 39.0 % (37.0-47.0) 12/11/22 09:10 MCV 85.5 fl (81-99) 12/11/22 09:10 MCH 26.5 pg (28.0-34.0) L 12/11/22 09:10 MCHC 31.0 g/dL (30.0-36.0) 12/11/22 09:10 RDW 13.4 % (12.1-15.1) 12/11/22 09:10 Plt Count 420 10^3/cmm (130-400) H 12/11/22 09:10 MPV 9.1 fL (7.4-10.4) 12/11/22 09:10 Neut % (Auto) 84.8 % 12/11/22 09:10 Lymph % (Auto) 7.4 % 12/11/22 09:10 [place] % (Auto) 6.9 % 12/11/22 09:10 Eos % (Auto) 0.0 % 12/11/22 09:10 Baso % (Auto) 0.2 % 12/11/22 09:10 Neut # (Auto) 16.45 10^3/uL (1.8-7.7) H 12/11/22 09:10 Lymph # (Auto) 1.4 10^3/uL (0.8-4.8) 12/11/22 09:10 [place] # (Auto) 1.3 10^3/uL (0.2-0.9) H 12/11/22 09:10 Eos # (Auto) 0.0 10^3/uL (0.0-0.8) 12/11/22 09:10 Baso # (Auto) 0.0 10^3/uL (0.0-0.1) 12/11/22 09:10 Nucleated RBC % (auto) 0 % 12/11/22 09:10 Nucleated RBCs # 0.0 /100WBC 12/11/22 09:10 Specimen Type Arterial 12/11/22 09:13 Sample Site Radial, right 12/11/22 09:13 ABG pH 7.34 (7.35-7.45) L 12/11/22 09:13 ABG pCO2 31.8 mmHg (35-45) L 12/11/22 09:13 ABG pO2 67.5 mmHg (80.0-100.0) L 12/11/22 09:13 ABG HCO3 17.1 mmol/L (22-26) L 12/11/22 09:13 ABG O2 Saturation 93.6 12/11/22 09:13 ABG Base Excess -7.6 mmol/L (-2.0-2.0) L 12/11/22 09:13 Mathieu Test Pos 12/11/22 09:13 A-a O2 Gradient 5.6 mmHg (5-10) 12/11/22 09:13 Hematocrit 40.3 % (37-47) 12/11/22 09:13 Hgb O2 Saturation 91.8 % (95-100) L 12/11/22 09:13 Carboxyhemoglobin 1.4 %THgb (0.4-20.1) 12/11/22 09:13 Methemoglobin 0.6 % (0.4-1.5) 12/11/22 09:13 Total Hemoglobin 13.1 g/dL (12-16) 12/11/22 09:13 Sodium 141.0 mmol/L (131-143) 12/11/22 09:13 Potassium 4.6 mmol/L (3.5-5.0) 12/11/22 09:13 Glucose 219.0 mg/dL (70-115) H 12/11/22 09:13 Ionized Calcium 1.2 mmol/L (1.1-1.4) 12/11/22 09:13 O2 Delivery Device Room air 12/11/22 09:13 FiO2 21.0 % 12/11/22 09:13 Signal Maintainer ID glc 12/11/22 09:13 Sodium 136 mmol/L (136-145) 12/11/22 09:10 Potassium 4.7 mmol/L (3.5-5.1) 12/11/22 09:10 Chloride 103 mmol/L (98-107) 12/11/22 09:10 Carbon Dioxide 17 mmol/L (22-29) L 12/11/22 09:10 Anion Gap 20.7 (5-19) H 12/11/22 09:10 BUN 48 mg/dL (6-20) H 12/11/22 09:10 Creatinine 2.7 mg/dL (0.5-0.9) H 12/11/22 09:10 GFR Calculation 18.1 mL/min (90-130) L 12/11/22 09:10 Glucose 227 mg/dL (65-115) H 12/11/22 09:10 POC Glucose 231 mg/dL (70-110) H 12/11/22 09:14 Calculated Osmolality 302 mOsm/kg (285-295) H 12/11/22 09:10 Lactic Acid 1.6 mmol/L (0.5-2.2) 12/11/22 09:10 Calcium 9.0 mg/dL (8.5-10.5) 12/11/22 09:10 Magnesium 1.9 mg/dL (1.7-2.3) 12/11/22 09:10 Total Bilirubin 0.3 mg/dL (0.15-1.2) 12/11/22 09:10 AST 8 U/L (0-32) 12/11/22 09:10 ALT 7 U/L (0-33) 12/11/22 09:10 Alkaline Phosphatase 102 U/L (35-105) 12/11/22 09:10 Creatine Kinase 36 U/L (26-192) 12/11/22 09:10 Total Protein 7.9 g/dL (6.6-8.7) 12/11/22 09:10 Albumin 3.7 g/dL (3.5-5.2) 12/11/22 09:10 Globulin 4.2 g/dL (1.3-4.6) 12/11/22 09:10 Lipase 15 U/L (13-60) 12/11/22 09:10 Urine Color Yellow (Yellow) 12/11/22 11:49 Urine Appearance Hazy (CLEAR) A 12/11/22 11:49 Urine pH 8 (5-7) H 12/11/22 11:49 Ur Specific [place] 1.010 (1.005-1.030) 12/11/22 11:49 Urine Protein 2+ (Negative) H 12/11/22 11:49 Urine Glucose (UA) Norm (Normal) 12/11/22 11:49 Urine Ketones Negative (Negative) 12/11/22 11:49 Urine Blood 3+ (Negative) H 12/11/22 11:49 Urine Nitrate Negative (Negative) 12/11/22 11:49 Urine Bilirubin Neg (Negative) 12/11/22 11:49 Prot Sulfosalicylic Acd Positive (Negative) 12/11/22 11:49 Urine Urobilinogen Neg mg/dL (Negative) 12/11/22 11:49 Ur Leukocyte Esterase 2+ (Negative) H 12/11/22 11:49 Urine RBC 40-50 /hpf (0-2) H 12/11/22 11:49 Urine WBC 80-100 /hpf (0-5) H 12/11/22 11:49 Ur Squamous Epith Cells 0-4 /hpf (0-5) H 12/11/22 11:49 Amorphous Sediment Not Reportable 12/11/22 11:49 Urine Bacteria Trace /hpf (NONE) 12/11/22 11:49 Serum Ketones Negative (Negative) 12/11/22 09:10 Discharge Plan Discharge Patient Disposition: Admitted As Inpatient Clinical Impression: Obstructive pyelonephritis, Diabetes mellitus, Acute metabolic encephalopathy, Acute kidney injury Condition: Stable Prescriptions: No Action methenamine hippurate [Hiprex] 1 gram tablet 1 g PO BID@07,19 escitalopram oxalate 20 mg tablet 20 mg PO DAILY@07 solifenacin [Vesicare] 5 mg tablet 5 mg PO DAILY@07 topiramate [Topamax] 100 mg tablet 100 mg PO DAILY@07 bisacodyl 10 mg suppository 10 mg RI DAILY PRN (Reason: Constipation) Lantus Solostar U-100 Insulin 100 unit/mL (3 mL) insulin pen 25 unit SUBCUT BEDTIME@19 hydrocodone-acetaminophen 5-325 mg tablet 1 tab PO Q4H PRN (Reason: Pain) cyclobenzaprine 10 mg tablet 10 mg PO Q8H PRN (Reason: muscle spasms) (DME) blood-glucose meter [Accu-Chek Gaby Plus Meter] Misc See Rx Instructions .ROUTE .MEDSUPPLY Qty: 1 0RF Rx Instructions: As directed (DME) Accu-Chek Gaby Plus test strp Strip See Rx Instructions .ROUTE .MEDSUPPLY Qty: 10 0RF Rx Instructions: As directed (DME) lancets [Accu-Chek Multiclix Lancet] Misc See Rx Instructions .ROUTE .MEDSUPPLY Qty: 100 0RF Rx Instructions: As directed metoprolol succinate 200 mg tablet extended release 24 hr 200 mg PO DAILY@07 clopidogrel 75 mg Tablet 75 mg PO DAILY@07 amlodipine 10 mg Tablet 10 mg PO DAILY@07 hydroxyzine HCl 25 mg tablet 25 mg PO Q8H PRN (Reason: Itching) potassium chloride 20 mEq Tablet Extended Release 20 meq PO DAILY@07 pravastatin 80 mg Tablet 80 mg PO DAILY@19 Enema Disposable 19-7 gram/118 mL Enema 118 ml RI DAILY PRN (Reason: Constipation) Januvia 25 mg tablet 25 mg PO DAILY@07 acetaminophen 650 mg Suppository 650 mg RI Q6H PRN (Reason: pain/fever) Referrals: Vu Neil Jr, MD [Primary Care Provider] - Coding Level of Care Code ED Central Office Mechanic for Ish Sawyer
[2022-12-11 09:16] LABS: Glucose Point of Care 231 mg/dL (70-110)
[2022-12-11 09:23] LABS: Basophils % 0.2 %; Hemoglobin 12.1 g/dL (11.5-15.3); Lymphocytes # 1.4 10^3/uL (0.8-4.8); Lymphocytes % 7.4 %; Mean Corpuscular Hemoglobin 26.5 pg (28.0-34.0); Mean Corpuscular Volume 85.5 fl (81-99); Mean Platelet Volume 9.1 fL (7.4-10.4); Monocytes # 1.3 10^3/uL (0.2-0.9); Monocytes % 6.9 %; Neutrophils # 16.45 10^3/uL (1.8-7.7); Neutrophils % 84.8 %; Nucleated Red Blood Cells % 0 %; Platelet Count 420 10^3/cmm (130-400); Red Blood Count 4.56 10^6/uL (4.1-5.3); Red Cell Distribution Width 13.4 % (12.1-15.1); White Blood Count 19.4 10^3/uL (4.0-10.0)
[2022-12-11 09:25] LABS: ABG PCO2 31.8 mmHg (35-45); ABG PH Result 7.34 (7.35-7.45); Alveolar-Arterial Oxygen Gradi 5.6 mmHg (5-10); Arterial Blood Gas Hematocrit 40.3 % (37-47); Base Excess ABG -7.6 mmol/L (-2.0-2.0); Blood Gas Allen Test Pos; Blood Gas Operator Identificat glc; Blood Gas Sample Site Radial, right; Blood Gas Sample Type Arterial; Carboxyhemoglobin 1.4 %THgb (0.4-20.1); HCO3 ABG 17.1 mmol/L (22-26); HGB O2 Sat 91.8 % (95-100); Ionized Calcium Level - ABG 1.2 mmol/L (1.1-1.4); Methemoglobin 0.6 % (0.4-1.5); Oxygen Device ROOM AIR; Oxygen Saturation ABG 93.6; PO2 ABG 67.5 mmHg (80.0-100.0); Potassium Level - ABG 4.6 mmol/L (3.5-5.0); Total Hemoglobin 13.1 g/dL (12-16)
[2022-12-11 09:40] LABS: Alanine Aminotransferase 7 U/L (0-33); Albumin Level 3.7 g/dL (3.5-5.2); Alkaline Phosphatase 102 U/L (35-105); Anion Gap 20.7 (5-19); Aspartate Amino Transferase 8 U/L (0-32); Blood Urea Nitrogen 48 mg/dL (6-20); Carbon Dioxide 17 mmol/L (22-29); Chloride 103 mmol/L (98-107); Creatine Phosphokinase 36 U/L (26-192); Globulin 4.2 g/dL (1.3-4.6); Glomerular Filtration Rate 18.1 mL/min (90-130); Glucose 227 mg/dL (65-115); Lactic Sepsis W/Reflex 1.6 mmol/L (0.5-2.2); Lipase 15 U/L (13-60); Magnesium 1.9 mg/dL (1.7-2.3); Osmolality Calculated 302 mOsm/kg (285-295); Potassium 4.7 mmol/L (3.5-5.1); Sodium 136 mmol/L (136-145); Total Bilirubin 0.3 mg/dL (0.15-1.2); Total Protein 7.9 g/dL (6.6-8.7)
[2022-12-11 09:45] LABS: Ketone (Acetest) Serum Negative (Negative)
--- NOTE | 2022-12-11 10:04 | PC.NURSE ---
PT HAS WHEEZING BILATERALLY THROUGHOUT ALL [place]
--- NOTE | 2022-12-11 10:12 | PC.PHAR ---
pt is from [facility] emergency department [phone] pranay nurse from [facility] states pt had all am meds today-mar sent didnt have lantus solostar 25 units hs but pranay states the pt takes the lantus solostar
--- NOTE | 2022-12-11 11:52 | PC.NURSE ---
35 mL urine obtained and taken to lab for UA
--- NOTE | 2022-12-11 12:01 | SC_ITS ---
WS: [id number] C-ARM RADIOGRAPHS ABDOMEN; 2 IMAGES HISTORY: Left ureteral stent placement COMPARISON: None available. Intraoperative imaging for Dr. Gama during ureteral placement. SC/C-arm [place] for Urology IMPRESSION: Intraoperative imaging provided for Dr. Gama.
[2022-12-11] MEDS: sodium chloride 0.9% 1,000 ML 125 ML IV (12:04)
[2022-12-11] MEDS: meropenem 1,000 MG in sodium chloride 0.9% (plus) 50 ML 100 MG IV ×2 (12:06→23:08)
--- NOTE | 2022-12-11 12:08 | P.HP_ITS ---
Providers/Chief Complaint Admitting Physician: Will Morton MD, hospitalist Primary Care Provider: Vu Neil Jr, MD Chief Complaint: ams History of Present Illness Erika Shen is a 57 year old female nursing facility resident who was sent to the emergency department secondary to lethargy, slurred speech. The senior care staff who I personally talked with said that she was a little confused, blood pressure was up. They had not noticed any fever lately. Urine is always cloudy as she has a suprapubic catheter. In the emergency department she had minimal responses. Ultimately on testing it was noted that she had an elevated white blood cell count, acute kidney injury, and CT findings consistent with new moderate left hydronephrosis with an obstructing 6 mm calculus. Right ureteral stent was still in place. Review of Systems General: Reports: ROS unobtainable due to mental status (Patient with minimal responses.) Medications/Allergies Home Medications Medication Instructions Recorded Confirmed Last Taken Type escitalopram oxalate 20 mg tablet 20 mg PO DAILY@12/01/19 12/11/22 12/11/22 History solifenacin 5 mg tablet (Vesicare) 5 mg PO DAILY@12/01/19 12/11/22 12/11/22 History topiramate 100 mg tablet (Topamax) 100 mg PO DAILY@12/01/19 12/11/22 12/11/22 History cyclobenzaprine 10 mg tablet 10 mg PO Q8H PRN muscle spasms 10/12/20 12/11/22 12/22/20 History blood sugar diagnostic (Accu-Chek #10 ea 10/15/20 12/11/22 Unknown Rx Gaby Plus test strips) blood-glucose meter (Accu-Chek #1 ea 10/15/20 12/11/22 Unknown Rx Gaby Plus Meter) lancets (Accu-Chek Multiclix #100 ea 10/15/20 12/11/22 Unknown Rx Lancet) metoprolol succinate 200 mg 200 mg PO DAILY@12/17/20 12/11/22 12/11/22 History tablet,extended release 24 hr methenamine hippurate 1 gram 1 g PO BID@05/01/21 12/11/22 12/11/22 History tablet (Hiprex) bisacodyl 10 mg rectal suppository 10 mg KS DAILY PRN Constipation 08/03/21 12/11/22 Unknown History insulin glargine 100 unit/mL (3 25 unit SUBCUT BEDTIME@08/03/21 12/11/22 08/08/22 History mL) subcutaneous pen (Lantus Solostar U-100 Insulin) hydrocodone 5 mg-acetaminophen 325 1 tab PO Q4H PRN Pain 11/20/21 12/11/22 08/09/22 08:01 History mg tablet amlodipine 10 mg tablet 10 mg PO DAILY@01/05/22 12/11/22 12/11/22 History clopidogrel 75 mg tablet 75 mg PO DAILY@01/05/22 12/11/22 12/11/22 History pravastatin 80 mg tablet 80 mg PO DAILY@08/09/22 12/11/22 12/10/22 History sodium phosphates 19 gram-7 118 ml KS DAILY PRN Constipation 08/09/22 12/11/22 Unknown History gram/118 mL enema (Enema Disposable) hydroxyzine HCl 25 mg tablet 25 mg PO Q8H PRN Itching 09/19/22 12/11/22 Unknown History potassium chloride 20 mEq 20 meq PO DAILY@10/11/22 12/11/22 12/11/22 History tablet,extended release acetaminophen 650 mg rectal 650 mg KS Q6H PRN pain/fever 12/11/22 12/11/22 Unknown History suppository sitagliptin phosphate 25 mg tablet 25 mg PO DAILY@12/11/22 12/11/22 12/11/22 History (Januvia) Allergies Allergy/AdvReac Type Severity Reaction Status Date / Time levofloxacin [From Levaquin] Allergy NA Verified 12/11/22 09:06 metronidazole [From Flagyl] Allergy NA Verified 12/11/22 09:06 miconazole Allergy NA Verified 12/11/22 09:06 Sulfa (Sulfonamide Allergy NA Verified 12/11/22 09:06 Antibiotics) sulfamethoxazole Allergy Unknown Verified 12/11/22 09:06 [From Bactrim] trimethoprim [From Bactrim] Allergy Unknown Verified 12/11/22 09:06 PFSH Acute PFSH: Medical History (Updated 12/11/22 @ 12:35 by Osorio Gama MD) Acute cystitis Acute ischemic multifocal multiple vascular territories stroke Acute kidney injury EFREN (acute kidney injury) EFREN (acute kidney injury) Altered mental status Bilateral renal stones Partial staghorn CKD (chronic kidney disease) CVA (cerebral vascular accident) left hemiparesis Cystitis Dehydration Depression Diabetes mellitus Diabetes mellitus, type II a1c 10/2020 12.7 Dyslipidemia Encephalopathy Feeling grief Groin ulcer Headache History of CVA (cerebrovascular accident) History of ischemic vertebrobasilar artery thalamic stroke History of seizure on topamax History of stroke Hypertension hypertensive emergency 10/2020 Hypertension Left pontine stroke Macular degeneration Neurogenic bladder suprapubic catheter, Obesity Obstructive pyelonephritis Recurrent obstructive pyelonephritis Recurrent UTI Requires assistance with activities of daily living (ADL) Seizures TIA (transient ischemic attack) Ulcer of sacral region, stage 1 x 2, one on each buttock Urethral pain UTI (urinary tract infection) Surgical History H/O detached retina repair H/O oral surgery History of suprapubic catheter came out in 2019, not replaced S/P appendectomy S/P cataract surgery S/P cholecystectomy S/P knee surgery S/P shoulder surgery Family History Father Cancer Lymphoma Mother CAD (coronary artery disease) Diabetes Chronic kidney disease (CKD) Social History Smoking and tobacco status: former smoker Alcohol intake: never Caregiver/support person: No Lives independently: No Marital status: Marital status details: 12/17/20 Current occupational status: disabled Vitals/I&O/Wt Last Vital Signs Temp 98.5 F 12/11/22 08:56 Pulse 83 12/11/22 11:45 Resp 19 H 12/11/22 11:45 BP 152/91 12/11/22 11:45 Pulse Ox 94 12/11/22 11:45 O2 Del Method 12/11/22 08:56 Weight last 48 hrs Weight 97.069 kg Physical Exam Narrative: Patient will open her eyes, able to relate her name. She seemed confused but able to generate a few responses. In talking with the senior care her speech is usually slowed, she has had multiple strokes so she has significant mobility impairments and is usually in a wheelchair. HEENT: Atraumatic and normocephalic. Pupils equally round. Oropharynx dry Neck is supple no lymphadenopathy or thyromegaly Cardiovascular regular rate and rhythm without murmur Lungs clear Abdomen is soft, obese. Suprapubic catheter noted. Cloudy urine noted. was deferred Extremities no cyanosis clubbing. No edema. Atrophy is noted. Skin no rash Neuro Global weakness, more so on the left consistent with left hemiparesis which per my understanding is old. Urinary Catheter Management: Suprapubic: Cath Placed During This Visit: yes Urinary Catheter Date of Insertion: 12/11/22 Urinary Catheter Time of Insertion: 11:00 Data 12/11/22 09:10 12/11/22 09:10 Other Labs: Chest x-ray with GI reviewed shows no infiltrate Head CT no acute changes, chronic lacunar infarcts noted. I reviewed this personally as well. CT abdomen pelvis demonstrated right ureteral stent, new left hydronephrosis and 6 mm proximal ureteral calculus. Staghorn calculus also noted on the left Blood cultures and urine cultures were obtained. Previous urine cultures on the patient grew Proteus ABG demonstrates pH 7.34, PCO2 31, PO2 of 67. LFTs are normal Calcium 9.0 Lactate 1.6 CK 36 Urinalysis is pending currently. Micro: Microbiology 12/11/22 09:15 Blood Culture - Preliminary Blood SPECIMEN COLLECTED 12/11/22 09:10 Blood Culture - Preliminary Blood SPECIMEN COLLECTED A&P Assessment and plan (1) Obstructive pyelonephritis: Patient presents with obstructive pyelonephritis. She has a ureteral stone on the left with moderate hydronephrosis, and urinalysis that appears quite infected Initiate meropenem 1 g IV every 8 hours CBC, BMP tomorrow Urgent urologic consultation for alleviation of obstruction Note that she has history of previous stone and stenting on the right Await urine and blood cultures. (2) Acute metabolic encephalopathy: Above infection is associated with metabolic encephalopathy. This already appears to be improving in the ER after fluid administration. Continue to follow repeat exams for resolution (3) Acute kidney injury: Patient with evidence of acute kidney injury Urology consult to alleviate obstruction IV fluids will be given Repeat renal function tomorrow (4) CVA (cerebral vascular accident): Past history of CVA. Continue Plavix, statin (5) Diabetes mellitus: Sliding scale insulin (6) History of seizure: Continue patient's Topamax Plan Multiple other medical problems as outlined in past medical history Full code currently Heparin for DVT prophylaxis Attestations Medical Necessity Statement*: Will require greater than 2 midnight stay for evaluation and treatment of acute kidney injury, acute encephalopathy, postobstructive pyelonephritis Coding Level of Care Code 02556 High MDM includes risk/complexity, reviewing test results, ordering lab/other test(s), speaking with independent historian (other than patient), independently interpretating test(s) (not separately recorded) and discussion of management or test(s) w/ other healthcare professional Diagnoses Obstructive pyelonephritis N11.1 Acute metabolic encephalopathy G93.41 Acute kidney injury N17.9 CVA (cerebral vascular accident) I63.9 Diabetes mellitus E11.9 History of seizure Z87.898 Time Spent (min) 61
--- NOTE | 2022-12-11 12:22 | P.CONIM_ITS ---
Providers/Reason For Consult Consulting Physician/Specialty*: Urology/Gama Reason for Consult*: Left obstructive pyelonephritis Requesting Physician: Dr. Morton Attending Physician: Dr. Morton Primary Care Provider: Vu Neil Jr, MD History of Present Illness History of Present Illness Erika Shen is a 57 year old female well-known to me for history of complicated urinary tract infections, neurogenic bladder with chronic suprapubic tube, multiple urolithiasis, and multiple episodes of obstructive pyelonephritis and sepsis. She was last seen in September 2022 with an obstruction of the right UPJ and appeared to be either sediment or stone and attempted passing a wire was unsuccessful. Ureteroscopy did not demonstrate the true lumen at that time and ultimately attempts at retrograde stent placement were abandoned and she was transferred to [facility] for RIGHT percutaneous nephrostomy tube placement. I have no records of what occurred there but did talk to Karoline Kaur, her sister, who seemed well-informed. It sounds as though she had a right percutaneous nephrostomy tube placed along w ith a right ureteral stent. I am not sure if the stent was placed at the same time or not. Ultimately she had further imaging that confirmed that the stent was functioning well and the percutaneous nephrostomy tube was removed and there apparently is at least a tentative plan for rescoping her in dealing with the stone. Her sister states that she was doing fine as recent as 2 days ago. She de veloped fairly abrupt deterioration with decreased mentation, lethargy, slurred speech. She has had a history of multiple strokes but this was an acute change from her baseline. Presented to the emergency department for further evaluation. Work-up demonstrated: Leukocytosis, marked increase in her baseline creatinine, and a CT scan demonstrating a 6 x 10 mm obstructing left proximal ureteral ston e. Urine was grossly infected and purulent. She was admitted for further evaluation and treatment. She is a high risk patient. I reviewed with her Sister Karoline and her other sister the recommendations for emergent cystoscopy left ureteral stent placement as soon as OR time is available. Informed consent was obtained since patient is not capable of giving that due to her significant mentation decline associated with this illness. Review of Systems General: Reports: ROS unobtainable due to medical condition Medications/Allergies Home Medications Medication Instructions Recorded Confirmed Last Taken Type escitalopram oxalate 20 mg tablet 20 mg PO DAILY@12/01/19 12/11/22 12/11/22 History solifenacin 5 mg tablet (Vesicare) 5 mg PO DAILY@12/01/19 12/11/22 12/11/22 History topiramate 100 mg tablet (Topamax) 100 mg PO DAILY@12/01/19 12/11/22 12/11/22 History cyclobenzaprine 10 mg tablet 10 mg PO Q8H PRN muscle spasms 10/12/20 12/11/22 12/22/20 History blood sugar diagnostic (Accu-Chek #10 ea 10/15/20 12/11/22 Unknown Rx Gaby Plus test strips) blood-glucose meter (Accu-Chek #1 ea 10/15/20 12/11/22 Unknown Rx Gaby Plus Meter) lancets (Accu-Chek Multiclix #100 ea 10/15/20 12/11/22 Unknown Rx Lancet) metoprolol succinate 200 mg 200 mg PO DAILY@12/17/20 12/11/22 12/11/22 History tablet,extended release 24 hr methenamine hippurate 1 gram 1 g PO BID@05/01/21 12/11/22 12/11/22 History tablet (Hiprex) bisacodyl 10 mg rectal suppository 10 mg SC DAILY PRN Constipation 08/03/21 12/11/22 Unknown History insulin glargine 100 unit/mL (3 25 unit SUBCUT BEDTIME@08/03/21 12/11/22 08/08/22 History mL) subcutaneous pen (Lantus Solostar U-100 Insulin) hydrocodone 5 mg-acetaminophen 325 1 tab PO Q4H PRN Pain 11/20/21 12/11/22 08/09/22 08:01 History mg tablet amlodipine 10 mg tablet 10 mg PO DAILY@01/05/22 12/11/22 12/11/22 History clopidogrel 75 mg tablet 75 mg PO DAILY@01/05/22 12/11/22 12/11/22 History pravastatin 80 mg tablet 80 mg PO DAILY@08/09/22 12/11/22 12/10/22 History sodium phosphates 19 gram-7 118 ml SC DAILY PRN Constipation 08/09/22 12/11/22 Unknown History gram/118 mL enema (Enema Disposable) hydroxyzine HCl 25 mg tablet 25 mg PO Q8H PRN Itching 09/19/22 12/11/22 Unknown History potassium chloride 20 mEq 20 meq PO DAILY@10/11/22 12/11/22 12/11/22 History tablet,extended release acetaminophen 650 mg rectal 650 mg SC Q6H PRN pain/fever 12/11/22 12/11/22 Unknown History suppository sitagliptin phosphate 25 mg tablet 25 mg PO DAILY@12/11/22 12/11/22 12/11/22 History (Januvia) Allergies Allergy/AdvReac Type Severity Reaction Status Date / Time levofloxacin [From Levaquin] Allergy NA Verified 12/11/22 09:06 metronidazole [From Flagyl] Allergy NA Verified 12/11/22 09:06 miconazole Allergy NA Verified 12/11/22 09:06 Sulfa (Sulfonamide Allergy NA Verified 12/11/22 09:06 Antibiotics) sulfamethoxazole Allergy Unknown Verified 12/11/22 09:06 [From Bactrim] trimethoprim [From Bactrim] Allergy Unknown Verified 12/11/22 09:06 Current Medications Generic Name Dose Route Start Last Admin Trade Name Freq PRN Reason Stop Dose Admin Sodium Chloride 1,000 mls @ 125 mls/hr 12/11/22 11:45 12/11/22 12:04 Sodium Chloride 0.9% IV 125 mls/hr .Q8H ED Administration Meropenem 1,000 mg/ Sodium 50 mls @ 100 mls/hr 12/11/22 12:00 12/11/22 12:06 Chloride IV 12/11/22 12:29 100 mls/hr ONCE ONE Administration PFSH Acute PFSH: Medical History (Updated 12/11/22 @ 12:35 by Osorio Gama MD) Acute cystitis Acute ischemic multifocal multiple vascular territories stroke Acute kidney injury EFREN (acute kidney injury) EFREN (acute kidney injury) Altered mental status Bilateral renal stones Partial staghorn CKD (chronic kidney disease) CVA (cerebral vascular accident) left hemiparesis Cystitis Dehydration Depression Diabetes mellitus Diabetes mellitus, type II a1c 10/2020 12.7 Dyslipidemia Encephalopathy Feeling grief Groin ulcer Headache History of CVA (cerebrovascular accident) History of ischemic vertebrobasilar artery thalamic stroke History of seizure on topamax History of stroke Hypertension hypertensive emergency 10/2020 Hypertension Left pontine stroke Macular degeneration Neurogenic bladder suprapubic catheter, Obesity Obstructive pyelonephritis Recurrent obstructive pyelonephritis Recurrent UTI Requires assistance with activities of daily living (ADL) Seizures TIA (transient ischemic attack) Ulcer of sacral region, stage 1 x 2, one on each buttock Urethral pain UTI (urinary tract infection) Surgical History H/O detached retina repair H/O oral surgery History of suprapubic catheter came out in 2019, not replaced S/P appendectomy S/P cataract surgery S/P cholecystectomy S/P knee surgery S/P shoulder surgery Family History Father Cancer Lymphoma Mother CAD (coronary artery disease) Diabetes Chronic kidney disease (CKD) Social History Smoking and tobacco status: former smoker Alcohol intake: never Caregiver/support person: No Lives independently: No Marital status: Marital status details: 12/17/20 Current occupational status: disabled Vitals/I&O/Wt Last Vital Signs Temp 98.5 F 12/11/22 08:56 Pulse 83 12/11/22 11:45 Resp 19 H 12/11/22 11:45 BP 152/91 12/11/22 11:45 Pulse Ox 94 12/11/22 11:45 O2 Del Method 12/11/22 08:56 Weight last 48 hrs Weight 214 lb Physical Exam Narrative: Lethargic. Did not respond to verbal commands. Dramatically different than her baseline. HEENT atraumatic normocephalic Neck no palpable lymphadenopathy Cardiovascular regular rate and rhythm Respiratory no audible wheezes. No labored respiration. Abdomen. No palpable masses. Could not elicit any significant tenderness. Genitourinary: Suprapubic tube in place draining minimal amount of purulent looking material Skin: No jaundice or rashes Lymphatic: No palpable groin lymphadenopathy. Urinary Catheter Management: Suprapubic: Cath Placed During This Visit: yes Urinary Catheter Date of Insertion: 12/11/22 Urinary Catheter Time of Insertion: 11:00 Data 12/11/22 09:10 12/11/22 09:10 Micro: Microbiology 12/11/22 09:15 Blood Culture - Preliminary Blood SPECIMEN COLLECTED 12/11/22 09:10 Blood Culture - Preliminary Blood SPECIMEN COLLECTED A&P Assessment and plan (1) Obstructive pyelonephritis: (2) Neurogenic bladder: (3) Bilateral renal stones: (4) Chronic retention of urine: Plan To the operating room emergently when time available. Consult Attestations Medical Necessity Statement: Obstructive pyelonephritis, critically ill Coding Level of Care Code Acute Code for [facility] Diagnoses Obstructive pyelonephritis N11.1 Neurogenic bladder N31.9 Bilateral renal stones N20.0 Chronic retention of urine R33.9
[2022-12-11 12:51] LABS: Urine Appearance Hazy (CLEAR); Urine Color Yellow (Yellow)
[2022-12-11 12:52] LABS: Add Urine Microscopic? YES; Bilirubin Urine Neg (Negative); Blood Urine 3+ (Negative); Glucose Urine UA Norm (Normal); Ketones Urine Negative (Negative); Leukocyte Esterase Urine 2+ (Negative); Nitrate Urine Negative (Negative); Protein Urine 2+ (Negative); Sulfosalicylic Acid Urine Positive (Negative); Urobilinogen Urine Neg (Negative); pH Urine 8 (5-7)
[2022-12-11 12:53] LABS: RBC Urine 40-50 /hpf (0-2); Squamous Epithelial Cell Urine 0-4 /hpf (0-5); WBC Urine 80-100 /hpf (0-5)
[2022-12-11 12:54] LABS: Add Urine Culture? Yes; Bacteria Urine TRACE /hpf
--- NOTE | 2022-12-11 13:44 | ANES.PREANE2 ---
Pre-Anesthetic Assessment Height/Weight: Height 1.68 m Weight 97.069 kg Temp Pulse Resp BP Pulse Ox O2 Del Method 98.5 F 86 21 H 158/91 93 12/11/22 08:56 12/11/22 12:35 12/11/22 12:35 12/11/22 12:35 12/11/22 12:35 12/11/22 12:30 Preop Diagnosis: Right ureteral calculi. Status post stent for obstructive pyelonephritis Operation Date: 12/11/22 13:00 Proposed Procedures p Cystoscopy(Not Applicable) - Osorio Gama MD s Ureteral Stent Placement(Left) - Osorio Gama MD Familial anesthetic complications: None Was Beta Henry taken within 24 hours: N/A Was Clonidine taken within 24 hours: N/A Last intake: Unknown Social No alcohol and No tobacco Exam alert, clear to auscultation bilaterally and regular rate & rhythm Airway Mallampati: Class III Dentition: full History/ROS Other (obtained from chart review) Chronic Renal Insufficiency Metabolic Diabetes Mellitus and Morbid Obesity Neuropsych Cerebrovascular Accident and Seizure Anesthetic Plan ASA status: 4E Anesthesia: General Risk of > 500 ml blood loss (7ml/kg in children): No Medications/Allergies Home Medications Medication Instructions Recorded Confirmed Last Taken Type escitalopram oxalate 20 mg tablet 20 mg PO DAILY@12/01/19 12/11/22 12/11/22 History solifenacin 5 mg tablet (Vesicare) 5 mg PO DAILY@12/01/19 12/11/22 12/11/22 History topiramate 100 mg tablet (Topamax) 100 mg PO DAILY@12/01/19 12/11/22 12/11/22 History cyclobenzaprine 10 mg tablet 10 mg PO Q8H PRN muscle spasms 10/12/20 12/11/22 12/22/20 History blood sugar diagnostic (Accu-Chek #10 ea 10/15/20 12/11/22 Unknown Rx Gaby Plus test strips) blood-glucose meter (Accu-Chek #1 ea 10/15/20 12/11/22 Unknown Rx Gaby Plus Meter) lancets (Accu-Chek Multiclix #100 ea 10/15/20 12/11/22 Unknown Rx Lancet) metoprolol succinate 200 mg 200 mg PO DAILY@12/17/20 12/11/22 12/11/22 History tablet,extended release 24 hr methenamine hippurate 1 gram 1 g PO BID@05/01/21 12/11/22 12/11/22 History tablet (Hiprex) bisacodyl 10 mg rectal suppository 10 mg SD DAILY PRN Constipation 08/03/21 12/11/22 Unknown History insulin glargine 100 unit/mL (3 25 unit SUBCUT BEDTIME@08/03/21 12/11/22 08/08/22 History mL) subcutaneous pen (Lantus Solostar U-100 Insulin) hydrocodone 5 mg-acetaminophen 325 1 tab PO Q4H PRN Pain 11/20/21 12/11/22 08/09/22 08:01 History mg tablet amlodipine 10 mg tablet 10 mg PO DAILY@01/05/22 12/11/22 12/11/22 History clopidogrel 75 mg tablet 75 mg PO DAILY@01/05/22 12/11/22 12/11/22 History pravastatin 80 mg tablet 80 mg PO DAILY@08/09/22 12/11/22 12/10/22 History sodium phosphates 19 gram-7 118 ml SD DAILY PRN Constipation 08/09/22 12/11/22 Unknown History gram/118 mL enema (Enema Disposable) hydroxyzine HCl 25 mg tablet 25 mg PO Q8H PRN Itching 09/19/22 12/11/22 Unknown History potassium chloride 20 mEq 20 meq PO DAILY@10/11/22 12/11/22 12/11/22 History tablet,extended release acetaminophen 650 mg rectal 650 mg SD Q6H PRN pain/fever 12/11/22 12/11/22 Unknown History suppository sitagliptin phosphate 25 mg tablet 25 mg PO DAILY@12/11/22 12/11/22 12/11/22 History (Januvia) Allergies Allergy/AdvReac Type Severity Reaction Status Date / Time levofloxacin [From Levaquin] Allergy NA Verified 12/11/22 09:06 metronidazole [From Flagyl] Allergy NA Verified 12/11/22 09:06 miconazole Allergy NA Verified 12/11/22 09:06 Sulfa (Sulfonamide Allergy NA Verified 12/11/22 09:06 Antibiotics) sulfamethoxazole Allergy Unknown Verified 12/11/22 09:06 [From Bactrim] trimethoprim [From Bactrim] Allergy Unknown Verified 12/11/22 09:06 Current Medications Generic Name Dose Route Start Last Admin Trade Name Carol PRN Reason Stop Dose Admin Sodium Chloride 1,000 mls @ 125 mls/hr 12/11/22 11:45 12/11/22 12:04 Sodium Chloride 0.9% IV 125 mls/hr .Q8H ED Administration PFSH Anesthesia Medical History (Updated 12/11/22 @ 12:35 by Osorio Gama MD) Acute cystitis Acute ischemic multifocal multiple vascular territories stroke Acute kidney injury EFREN (acute kidney injury) EFREN (acute kidney injury) Altered mental status Bilateral renal stones Partial staghorn CKD (chronic kidney disease) CVA (cerebral vascular accident) left hemiparesis Cystitis Dehydration Depression Diabetes mellitus Diabetes mellitus, type II a1c 10/2020 12.7 Dyslipidemia Encephalopathy Feeling grief Groin ulcer Headache History of CVA (cerebrovascular accident) History of ischemic vertebrobasilar artery thalamic stroke History of seizure on topamax History of stroke Hypertension hypertensive emergency 10/2020 Hypertension Left pontine stroke Macular degeneration Neurogenic bladder suprapubic catheter, Obesity Obstructive pyelonephritis Recurrent obstructive pyelonephritis Recurrent UTI Requires assistance with activities of daily living (ADL) Seizures TIA (transient ischemic attack) Ulcer of sacral region, stage 1 x 2, one on each buttock Urethral pain UTI (urinary tract infection) Surgical History H/O detached retina repair H/O oral surgery History of suprapubic catheter came out in 2019, not replaced S/P appendectomy S/P cataract surgery S/P cholecystectomy S/P knee surgery S/P shoulder surgery Family History Father Cancer Lymphoma Mother CAD (coronary artery disease) Diabetes Chronic kidney disease (CKD) Social History Smoking and tobacco status: former smoker Alcohol intake: never Caregiver/support person: No Lives independently: No Marital status: Marital status details: 12/17/20 Current occupational status: disabled Data Anesthesia 12/11/22 09:10 12/11/22 09:10 Short CBC 12/11/22 Range/Units 09:10 WBC 19.4 H (4.0-10.0) 10^3/uL Hgb 12.1 (11.5-15.3) g/dL Hct 39.0 (37.0-47.0) % MCV 85.5 (81-99) fl Plt Count 420 H (130-400) 10^3/cmm Neut % (Auto) 84.8 % Neut # (Auto) 16.45 H (1.8-7.7) 10^3/uL BMP 12/11/22 09:10 Sodium 136 Potassium 4.7 Chloride 103 Carbon Dioxide 17 L BUN 48 H Creatinine 2.7 H Glucose 227 H Calcium 9.0 Cardiac Enzymes 12/11/22 Range/Units 09:10 Creatine Kinase 36 (26-192) U/L Liver Function 12/11/22 Range/Units 09:10 Total Bilirubin 0.3 (0.15-1.2) mg/dL AST 8 (0-32) U/L ALT 7 (0-33) U/L Alkaline Phosphatase 102 (35-105) U/L Albumin 3.7 (3.5-5.2) g/dL Urine 12/11/22 Range/Units 11:49 Urine Color Yellow (Yellow) Urine Appearance Hazy A (CLEAR) Urine pH 8 H (5-7) Ur Specific [place] 1.010 (1.005-1.030) Urine Protein 2+ H (Negative) Urine Glucose (UA) Norm (Normal) Urine Ketones Negative (Negative) Urine Nitrate Negative (Negative) Urine Bilirubin Neg (Negative) Ur Leukocyte Esterase 2+ H (Negative) Urine RBC 40-50 H (0-2) /hpf Urine WBC 80-100 H (0-5) /hpf ABG 12/11/22 09:13 Specimen Type Arterial Sample Site Radial, right ABG pH 7.34 L ABG pCO2 31.8 L ABG pO2 67.5 L ABG HCO3 17.1 L ABG O2 Saturation 93.6 ABG Base Excess -7.6 L A-a O2 Gradient 5.6 O2 Delivery Device Room air FiO2 21.0 Microbiology 12/11/22 09:15 Blood Culture - Preliminary Blood SPECIMEN COLLECTED 12/11/22 09:10 Blood Culture - Preliminary Blood SPECIMEN COLLECTED Cardiac Studies: Echocardiogram 01/11/22 Cardiac Event Monitor 10/05/21
--- NOTE | 2022-12-11 14:39 | P.OP_ITS ---
Operative Report Date of procedure: December 11, 2022 Pre-op diagnosis: Right ureteral calculi. Status post stent for obstructive pyelonephritis Post-op diagnosis: Right ureteral calculi. Status post stent for obstructive pyelonephritis Procedure done: Cystoscopy, left ureteral stent placement (7 [place] by 28 cm double-pigtail wit hout string) Specimens removed/disposition: None Surgeon: Natan Estimated blood loss: None Urine output: Not measured Complications: None Findings: Anesthesia: General Condition: Stable Disposition: PACU Intraoperative findings: * Stent was placed easily. Brief History: Erika is a very pleasant but very unfortunate 57-year-old white female who was admitted with obstructive pyelonephritis. See H&P and consult. Taken to the operating room emergently for cystoscopy and stent placement on the left. She already had a stent on the right side from a conversion of a percutaneous right nephrostomy into an internal indwelling stent for previous obstructive pyelonephritis on the opposite side. Procedure: After emergent evaluation examination and obtaining of informed consent she was taken to the operating suite on 12/11/2022 where general anesthesia was administered without difficulty. Prepped and draped in usual sterile fashion in dorsolithotomy position paying careful attention to avoiding pressure points after appropriate timeout was performed, SCDs confirmed to be functioning, preoperative antibiotics administered, beta-lázaro protocol confirmed. 21 [place]amanian cystoscope with 30 degree lens was introduced into the urethra meatus and advanced into the bladder without difficulty. She had some sediment in the bladder that was irrigated out. The left ureteral orifice was easily identified and a flexible tip guidewire was easily advanced up the left ureter bypassing the area of the stone curling in the area of the upper pole calyx. A 7 [place]ian by 28 centimeter stent was advanced over the guidewire easily bypassing the area of the stone. The wire was removed. Stent was confirmed to be in appropriate position as confirmed via fluoroscopy and cystoscopy. Stent was confirmed to be functioning. Bladder was drained and procedure was completed. The suprapubic tube which had been clamped was opened. She tolerated procedure well without complications and was awakened in the operating room and returned to the floor in serious condition but stable
--- NOTE | 2022-12-11 16:11 | ANE.PACU2 ---
Inpatient post-anesthesia follow up: Airway intact: Yes Vital signs: Temperature 97 F Pulse Rate 86 Respiratory Rate 15 Blood Pressure 137/82 Pulse Oximetry 92 Oxygen Delivery Me thod Room Air Oxygen Flow Rate 8 Fraction of Inspir ed Oxygen Hydration adequate: Yes Nausea and vomiting: No Pain level: 1 Mental status: Baseline
[2022-12-11] MEDS: heparin 5,000 unit/mL INJ 1 mL 5000 UNIT SUBCUT (17:00)
[2022-12-11] MEDS: sodium chloride 0.9% 1,000 ML 100 ML IV (20:52)
[2022-12-11] MEDS: insulin lispro 100 unit/1 mL SUBCUT (20:56)
[2022-12-11 21:49] LABS: Glucose Point of Care 316 mg/dL (70-110)
[2022-12-12] VITALS (7 sets, daily range): BP systolic 132–156; BP diastolic 66–77; PULSE 64–73; RESP 15–17; TEMP 36.7–36.9; O2SAT 90–96
[2022-12-12 05:40] LABS: Basophils % 0.2 %; Hematocrit 34.7 % (37.0-47.0); Hemoglobin 10.5 g/dL (11.5-15.3); Lymphocytes # 1.2 10^3/uL (0.8-4.8); Mean Corpuscular HGB Conc 30.3 g/dL (30.0-36.0); Mean Corpuscular Hemoglobin 26.9 pg (28.0-34.0); Mean Corpuscular Volume 88.7 fl (81-99); Mean Platelet Volume 9.3 fL (7.4-10.4); Monocytes # 0.6 10^3/uL (0.2-0.9); Monocytes % 5.6 %; Neutrophils # 9.24 10^3/uL (1.8-7.7); Neutrophils % 82.6 %; Nucleated Red Blood Cells % 0 %; Platelet Count 326 10^3/cmm (130-400); Red Blood Count 3.91 10^6/uL (4.1-5.3); Red Cell Distribution Width 13.8 % (12.1-15.1); White Blood Count 11.2 10^3/uL (4.0-10.0)
[2022-12-12 06:06] LABS: Alanine Aminotransferase < 5 U/L (0-33); Albumin Level 3.1 g/dL (3.5-5.2); Alkaline Phosphatase 82 U/L (35-105); Anion Gap 16.9 (5-19); Aspartate Amino Transferase 6 U/L (0-32); Blood Urea Nitrogen 58 mg/dL (6-20); Calcium 8.9 mg/dL (8.5-10.5); Carbon Dioxide 18 mmol/L (22-29); Chloride 112 mmol/L (98-107); Globulin 3.6 g/dL (1.3-4.6); Glomerular Filtration Rate 16.7 mL/min (90-130); Glucose 241 mg/dL (65-115); Magnesium 2.1 mg/dL (1.7-2.3); Osmolality Calculated 318 mOsm/kg (285-295); Potassium 4.9 mmol/L (3.5-5.1); Sodium 142 mmol/L (136-145); Total Bilirubin 0.2 mg/dL (0.15-1.2); Total Protein 6.7 g/dL (6.6-8.7)
[2022-12-12] MEDS: topiramate 100 mg Tablet PO (06:35)
[2022-12-12] MEDS: metoprolol succinate ER (24 HR) 100 mg Tablet 200 MG PO (06:35)
[2022-12-12] MEDS: clopidogrel 75 mg Tablet PO (06:35)
[2022-12-12] MEDS: escitalopram 10 mg Tablet 20 MG PO (06:35)
[2022-12-12] MEDS: amlodipine 10 mg Tablet PO (06:36)
[2022-12-12] MEDS: heparin 5,000 unit/mL INJ 1 mL 5000 UNIT SUBCUT ×2 (06:36→17:34)
[2022-12-12 06:52] LABS: Glucose Point of Care 232 mg/dL (70-110)
[2022-12-12] MEDS: insulin lispro 100 unit/1 mL SUBCUT ×4 (08:10→21:38)
[2022-12-12] MEDS: sodium chloride 0.9% 1,000 ML 100 ML IV ×2 (08:16→17:33)
--- NOTE | 2022-12-12 09:46 | PM.PN ---
Subjective Subjective: Erika is more alert this morning than yesterday. She underwent left ureteral stent yesterday. She had no fevers overnight. Poor urine output was noted. Medications: Reviewed: Yes Vitals/I&O/Wt Last Vital Signs Temp 98.4 F 12/12/22 08:00 Pulse 64 12/12/22 08:00 Resp 16 12/12/22 08:00 BP 132/68 12/12/22 08:00 Pulse Ox 92 12/12/22 08:00 O2 Del Method 12/12/22 08:00 O2 Flow Rate 2 12/11/22 23:00 12/11/22 12/12/22 12/12/22 22:59 06:59 14:59 Intake Total 800 / 850 1050 / 1900 Output Total 900 / 901 Balance 800 / 849 150 / 999 Weight last 48 hrs Weight 97.069 kg Weight 97.069 kg Physical Exam Narrative: General exam more alert and conversive Neck is supple no lymphadenopathy or thyromegaly Cardiovascular regular rate and rhythm without murmur Lungs clear Abdomen is soft, obese. Suprapubic catheter noted. Urine slightly pink-tinged Extremities no cyanosis clubbing. No edema. Atrophy is noted. Skin no rash Neuro left hemiparesis, global weakness Urinary Catheter Management: Suprapubic: Cath Placed During This Visit: yes Reason for Continuing Indwelling Catheter: Chronic Indwelling Urinary Catheter on Admission Urinary Catheter Date of Insertion: 12/11/22 Urinary Catheter Time of Insertion: 11:00 Data 12/12/22 05:18 12/12/22 05:18 Micro: Microbiology 12/11/22 09:15 Blood Culture - Preliminary Blood NEGATIVE TO DATE 12/11/22 09:10 Blood Culture - Preliminary Blood NEGATIVE TO DATE A&P Assessment and plan (1) Obstructive pyelonephritis: Patient presents with obstructive pyelonephritis. She has a ureteral stone on the left with moderate hydronephrosis, and urinalysis that appears quite infected Continue meropenem 1 g IV every 8 hours Await urine culture and blood culture. Blood cultures negative to date currently. Appreciate urologic consultation for stenting of left ureter for hydronephrosis Note that she has history of previous stone and stenting on the right (2) Acute metabolic encephalopathy: Above infection is associated with metabolic encephalopathy. This already appears to be improving in the ER after fluid administration. She appears to be at baseline this morning (3) Acute kidney injury: Patient with evidence of acute kidney injury Urology consult to alleviate obstruction appreciated Renal function appears worse today Continue IV fluids Avoid all renal toxic medication Repeat renal function tomorrow If renal function not improving consider nephrology consultation. (4) CVA (cerebral vascular accident): Past history of CVA. Continue Plavix, statin (5) Diabetes mellitus: Sliding scale insulin (6) History of seizure: Continue patient's Topamax Plan Multiple other medical problems as outlined in past medical history Full code currently Heparin for DVT prophylaxis Attestations Medical Necessity Statement*: Needs continued hospitalization for close follow-up of acute kidney injury. Coding Level of Care Code 61059 Moderate MDM includes risk/complexity, reviewing test results and ordering lab/other test(s) Diagnoses Obstructive pyelonephritis N11.1 Acute metabolic encephalopathy G93.41 Acute kidney injury N17.9 CVA (cerebral vascular accident) I63.9 Diabetes mellitus E11.9 History of seizure Z87.898 Time Spent (min) 21
[2022-12-12 11:30] LABS: Glucose Point of Care 165 mg/dL (70-110)
[2022-12-12] MEDS: meropenem 1,000 MG in sodium chloride 0.9% (plus) 50 ML 100 MG IV (12:01)
[2022-12-12 16:41] LABS: Glucose Point of Care 153 mg/dL (70-110)
[2022-12-12] MEDS: atorvastatin 40 mg Tablet 20 MG PO (17:34)
[2022-12-12 21:22] LABS: Glucose Point of Care 184 mg/dL (70-110)
[2022-12-13] MEDS: meropenem 1,000 MG in sodium chloride 0.9% (plus) 50 ML 100 MG IV ×2 (00:35→11:58)
[2022-12-13 04:00] VITALS: BP 150/67; PULSE 71; RESP 15; TEMP 37; O2SAT 96
[2022-12-13] MEDS: sodium chloride 0.9% 1,000 ML 100 ML IV (05:13)
[2022-12-13 05:19] LABS: Basophils % 0.4 %; Eosinophils # 0.1 10^3/uL (0.0-0.8); Eosinophils % 0.5 %; Hematocrit 31.7 % (37.0-47.0); Hemoglobin 9.5 g/dL (11.5-15.3); Lymphocytes # 1.8 10^3/uL (0.8-4.8); Mean Corpuscular Hemoglobin 26.3 pg (28.0-34.0); Mean Corpuscular Volume 87.8 fl (81-99); Mean Platelet Volume 9.4 fL (7.4-10.4); Monocytes # 0.7 10^3/uL (0.2-0.9); Monocytes % 6.9 %; Neutrophils # 6.85 10^3/uL (1.8-7.7); Neutrophils % 72.6 %; Nucleated Red Blood Cells % 0 %; Platelet Count 300 10^3/cmm (130-400); Red Blood Count 3.61 10^6/uL (4.1-5.3); Red Cell Distribution Width 13.2 % (12.1-15.1); White Blood Count 9.5 10^3/uL (4.0-10.0)
[2022-12-13 05:46] LABS: Anion Gap 18.2 (5-19); Blood Urea Nitrogen 51 mg/dL (6-20); Calcium 7.9 mg/dL (8.5-10.5); Carbon Dioxide 16 mmol/L (22-29); Chloride 109 mmol/L (98-107); Glomerular Filtration Rate 25.6 mL/min (90-130); Glucose 156 mg/dL (65-115); Osmolality Calculated 305 mOsm/kg (285-295); Potassium 4.2 mmol/L (3.5-5.1); Sodium 139 mmol/L (136-145)
[2022-12-13] MEDS: clopidogrel 75 mg Tablet PO (06:02)
[2022-12-13] MEDS: topiramate 100 mg Tablet PO (06:03)
[2022-12-13] MEDS: metoprolol succinate ER (24 HR) 100 mg Tablet 200 MG PO (06:03)
[2022-12-13] MEDS: amlodipine 10 mg Tablet PO (06:03)
[2022-12-13] MEDS: escitalopram 10 mg Tablet 20 MG PO (06:03)
[2022-12-13 06:29] LABS: Glucose Point of Care 168 mg/dL (70-110)
[2022-12-13 08:00] VITALS: BP 156/76; PULSE 69; RESP 18; TEMP 36.7; O2SAT 96
[2022-12-13] MEDS: insulin lispro 100 unit/1 mL SUBCUT ×2 (09:09→12:49)
[2022-12-13] MEDS: acetaminophen 325 mg Tablet 650 MG PO (09:10)
[2022-12-13 11:32] LABS: Glucose Point of Care 198 mg/dL (70-110)
[2022-12-13 12:00] VITALS: BP 125/69; PULSE 68; TEMP 36.9; O2SAT 95
--- NOTE | 2022-12-13 14:45 | PM.DCS ---
Discharge Providers Date of Admission: 12/11/22 15:55 Date of Discharge: December 13, 2022 Attending Provider at Admission: Osorio Gama MD Attending Provider at Discharge: Will Morton MD Primary Care Provider: Vu Neil Jr, MD Diagnoses at Discharge Discharge Diagnosis (1) Obstructive pyelonephritis: Status: Acute (2) Acute metabolic encephalopathy: Status: Acute (3) Acute kidney injury: Status: Acute (4) CVA (cerebral vascular accident): Status: Acute Permanent problem details: left hemiparesis (5) Diabetes mellitus: Status: Acute (6) History of seizure: Status: Acute Permanent problem details: on topamax Reason for Visit Reason for Visit: [facility] Hospital Course Hospital Course Erika is a 57-year-old white female presenting to the hospital from the nursing facility with encephalopathy. She was found to have acute UTI, obstructive pyelonephritis with a stone in the left as well as acute kidney injury. IV antibiotics were initiated. Urology was consulted, who took the patient emergently for surgery and stent on the left. Following this patient had resolution of her encephalopathy. The following day after surgery renal function was slightly worse. Hydration continued and this was significantly improving at discharge on December 13. At discharge she had been afebrile for her entire hospital stay. Blood pressure had been within normal limits as well as vital signs. It was thought she could finish an extended course of cefdinir at the nursing facility. Urine culture had grown Proteus, sensitive to ceftriaxone which she had been on at the hospital. Blood cultures were negative at discharge. Discharge creatinine was 2.0. I discussed with the patient and her discharge, as well as urology, and developed a discharge plan that was satisfactory to both. Physical Exam Narrative: General exam no distress Neck is supple Cardiovascular regular rate and rhythm without murmur Lungs clear Abdomen is soft, positive bowel sounds, suprapubic cath noted. Urine relatively clear. Extremities atrophy noted Neuro: Left hemiparesis unchanged. Urinary Catheter Management: Suprapubic: Cath Placed During This Visit: yes Reason for Continuing Indwelling Catheter: Chronic Indwelling Urinary Catheter on Admission Urinary Catheter Date of Insertion: 12/11/22 Urinary Catheter Time of Insertion: 11:00 Discharge Data Studies Completed and Pending Completed Studies During Hospitalization Category Date Time Status CT head wo con* [id number] Stat Cat Scan 12/11/22 08:[address] kidney stone [id number] Stat Cat Scan 12/11/22 08:53 Completed XR chest 1V portable [id number] Stat Exams 12/11/22 08:53 Completed Pending at discharge Category Date Time Status Blood Culture Stat Lab 12/11/22 09:15 Results Radiology Impressions Head CT 12/11/22 08:52 IMPRESSION: 1. No evidence of intracranial hemorrhage or mass effect. 2. Moderate small vessel changes with moderate parenchymal volume loss. 3. Vascular calcification. 4. Chronic lacunar infarcts in the internal capsules and thalamus bilaterally. 5. No acute intracranial findings. Abdomen/Pelvis CT 12/11/22 08:53 IMPRESSION: 1. RIGHT double-J ureteral stent in place. Mild RIGHT pelvocaliectasis. Distal aspect of the stent appears in good position in the bladder. RIGHT ureter is decompressed. 2. Moderate LEFT pelvocaliectasis is new from previous. Obstructing 6 mm proximal ureteral calculus. Additional LEFT calyceal staghorn calculus measuring 16 mm is new from previous. 3. Additional tubular calculus or debris in the distal LEFT ureter in the pelvis without significant obstruction similar to the prior examination. 4. Suprapubic catheter 5. Sigmoid constipation. 6. Small esophageal hiatal hernia. Chest X-Ray 12/11/22 08:53 IMPRESSION: No acute findings. C-Arm Fluoroscopy 12/11/22 12:01 IMPRESSION: Intraoperative imaging provided for Dr. Gama. Laboratory Results WBC 9.5 10^3/uL (4.0-10.0) 12/13/22 04:50 RBC 3.61 10^6/uL (4.1-5.3) L 12/13/22 04:50 Hgb 9.5 g/dL (11.5-15.3) L 12/13/22 04:50 Hct 31.7 % (37.0-47.0) L 12/13/22 04:50 MCV 87.8 fl (81-99) 12/13/22 04:50 MCH 26.3 pg (28.0-34.0) L 12/13/22 04:50 MCHC 30.0 g/dL (30.0-36.0) 12/13/22 04:50 RDW 13.2 % (12.1-15.1) 12/13/22 04:50 Plt Count 300 10^3/cmm (130-400) 12/13/22 04:50 MPV 9.4 fL (7.4-10.4) 12/13/22 04:50 Neut % (Auto) 72.6 % 12/13/22 04:50 Lymph % (Auto) 19.0 % 12/13/22 04:50 [place] % (Auto) 6.9 % 12/13/22 04:50 Eos % (Auto) 0.5 % 12/13/22 04:50 Baso % (Auto) 0.4 % 12/13/22 04:50 Neut # (Auto) 6.85 10^3/uL (1.8-7.7) 12/13/22 04:50 Lymph # (Auto) 1.8 10^3/uL (0.8-4.8) 12/13/22 04:50 [place] # (Auto) 0.7 10^3/uL (0.2-0.9) 12/13/22 04:50 Eos # (Auto) 0.1 10^3/uL (0.0-0.8) 12/13/22 04:50 Baso # (Auto) 0.0 10^3/uL (0.0-0.1) 12/13/22 04:50 Nucleated RBC % (auto) 0 % 12/13/22 04:50 Nucleated RBCs # 0.0 /100WBC 12/13/22 04:50 Specimen Type Arterial 12/11/22 09:13 Sample Site Radial, right 12/11/22 09:13 ABG pH 7.34 (7.35-7.45) L 12/11/22 09:13 ABG pCO2 31.8 mmHg (35-45) L 12/11/22 09:13 ABG pO2 67.5 mmHg (80.0-100.0) L 12/11/22 09:13 ABG HCO3 17.1 mmol/L (22-26) L 12/11/22 09:13 ABG O2 Saturation 93.6 12/11/22 09:13 ABG Base Excess -7.6 mmol/L (-2.0-2.0) L 12/11/22 09:13 Mathieu Test Pos 12/11/22 09:13 A-a O2 Gradient 5.6 mmHg (5-10) 12/11/22 09:13 Hematocrit 40.3 % (37-47) 12/11/22 09:13 Hgb O2 Saturation 91.8 % (95-100) L 12/11/22 09:13 Carboxyhemoglobin 1.4 %THgb (0.4-20.1) 12/11/22 09:13 Methemoglobin 0.6 % (0.4-1.5) 12/11/22 09:13 Total Hemoglobin 13.1 g/dL (12-16) 12/11/22 09:13 Sodium 141.0 mmol/L (131-143) 12/11/22 09:13 Potassium 4.6 mmol/L (3.5-5.0) 12/11/22 09:13 Glucose 219.0 mg/dL (70-115) H 12/11/22 09:13 Ionized Calcium 1.2 mmol/L (1.1-1.4) 12/11/22 09:13 O2 Delivery Device Room air 12/11/22 09:13 FiO2 21.0 % 12/11/22 09:13 [employer] ID glc 12/11/22 09:13 Sodium 139 mmol/L (136-145) 12/13/22 04:50 Potassium 4.2 mmol/L (3.5-5.1) 12/13/22 04:50 Chloride 109 mmol/L (98-107) H 12/13/22 04:50 Carbon Dioxide 16 mmol/L (22-29) L 12/13/22 04:50 Anion Gap 18.2 (5-19) 12/13/22 04:50 BUN 51 mg/dL (6-20) H 12/13/22 04:50 Creatinine 2.0 mg/dL (0.5-0.9) H 12/13/22 04:50 GFR Calculation 25.6 mL/min (90-130) L 12/13/22 04:50 Glucose 156 mg/dL (65-115) H 12/13/22 04:50 POC Glucose 198 mg/dL (70-110) H 12/13/22 11:29 Calculated Osmolality 305 mOsm/kg (285-295) H 12/13/22 04:50 Lactic Acid 1.6 mmol/L (0.5-2.2) 12/11/22 09:10 Calcium 7.9 mg/dL (8.5-10.5) L 12/13/22 04:50 Magnesium 2.1 mg/dL (1.7-2.3) 12/12/22 05:18 Total Bilirubin 0.2 mg/dL (0.15-1.2) 12/12/22 05:18 AST 6 U/L (0-32) 12/12/22 05:18 ALT < 5 U/L (0-33) 12/12/22 05:18 Alkaline Phosphatase 82 U/L (35-105) 12/12/22 05:18 Creatine Kinase 36 U/L (26-192) 12/11/22 09:10 Total Protein 6.7 g/dL (6.6-8.7) 12/12/22 05:18 Albumin 3.1 g/dL (3.5-5.2) L 12/12/22 05:18 Globulin 3.6 g/dL (1.3-4.6) 12/12/22 05:18 Lipase 15 U/L (13-60) 12/11/22 09:10 Urine Color Yellow (Yellow) 12/11/22 11:49 Urine Appearance Hazy (CLEAR) A 12/11/22 11:49 Urine pH 8 (5-7) H 12/11/22 11:49 Ur Specific [place] 1.010 (1.005-1.030) 12/11/22 11:49 Urine Protein 2+ (Negative) H 12/11/22 11:49 Urine Glucose (UA) Norm (Normal) 12/11/22 11:49 Urine Ketones Negative (Negative) 12/11/22 11:49 Urine Blood 3+ (Negative) H 12/11/22 11:49 Urine Nitrate Negative (Negative) 12/11/22 11:49 Urine Bilirubin Neg (Negative) 12/11/22 11:49 Prot Sulfosalicylic Acd Positive (Negative) 12/11/22 11:49 Urine Urobilinogen Neg mg/dL (Negative) 12/11/22 11:49 Ur Leukocyte Esterase 2+ (Negative) H 12/11/22 11:49 Urine RBC 40-50 /hpf (0-2) H 12/11/22 11:49 Urine WBC 80-100 /hpf (0-5) H 12/11/22 11:49 Ur Squamous Epith Cells 0-4 /hpf (0-5) H 12/11/22 11:49 Amorphous Sediment Not Reportable 12/11/22 11:49 Urine Bacteria Trace /hpf (NONE) 12/11/22 11:49 Serum Ketones Negative (Negative) 12/11/22 09:10 Vitals Last Vital Signs Temp 98.4 F 12/13/22 12:00 Pulse 68 12/13/22 12:00 Resp 18 12/13/22 08:00 BP 125/69 12/13/22 12:00 Pulse Ox 95 12/13/22 12:00 O2 Del Method 12/13/22 08:00 O2 Flow Rate 2 12/11/22 23:00 Discharge Plan Discharge Patient Disposition: Home Condition: Stable Prescriptions: New cefdinir 300 mg capsule 300 mg PO BID 5 Days Qty: 28 0RF Continued methenamine hippurate [Hiprex] 1 gram tablet 1 g PO BID@07,19 escitalopram oxalate 20 mg tablet 20 mg PO DAILY@07 solifenacin [Vesicare] 5 mg tablet 5 mg PO DAILY@07 topiramate [Topamax] 100 mg tablet 100 mg PO DAILY@07 bisacodyl 10 mg suppository 10 mg ID DAILY PRN (Reason: Constipation) Lantus Solostar U-100 Insulin 100 unit/mL (3 mL) insulin pen 25 unit SUBCUT BEDTIME@19 hydrocodone-acetaminophen 5-325 mg tablet 1 tab PO Q4H PRN (Reason: Pain) cyclobenzaprine 10 mg tablet 10 mg PO Q8H PRN (Reason: muscle spasms) (DME) blood-glucose meter [Accu-Chek Gaby Plus Meter] [facility] [place] See Rx Instructions .ROUTE .MEDSUPPLY Qty: 1 0RF Rx Instructions: As directed (DME) Accu-Chek Gaby Plus test strp Strip See Rx Instructions .ROUTE .MEDSUPPLY Qty: 10 0RF Rx Instructions: As directed (DME) lancets [Accu-Chek Multiclix Lancet] [facility] [place] See Rx Instructions .ROUTE .MEDSUPPLY Qty: 100 0RF Rx Instructions: As directed metoprolol succinate 200 mg tablet extended release 24 hr 200 mg PO DAILY@07 clopidogrel 75 mg Tablet 75 mg PO DAILY@07 amlodipine 10 mg Tablet 10 mg PO DAILY@07 hydroxyzine HCl 25 mg tablet 25 mg PO Q8H PRN (Reason: Itching) pravastatin 80 mg Tablet 80 mg PO DAILY@19 Enema Disposable 19-7 gram/118 mL Enema 118 ml ID DAILY PRN (Reason: Constipation) Januvia 25 mg tablet 25 mg PO DAILY@07 acetaminophen 650 mg Suppository 650 mg ID Q6H PRN (Reason: pain/fever) Discontinued potassium chloride 20 mEq Tablet Extended Release 20 meq PO DAILY@07 Discharge Orders: Discharge Order (Routine); Ordered 12/13/22 Ordered By: Will Morton Referrals: Osorio Gama MD [Physician] - 7-10 days Vu Neil Jr, MD [Primary Care Provider] - 4-7 days Discharge Diet: Usual diet Patient Instructions: Opioid Safety Activity Restrictions/Additional Instructions: Take all medicine as prescribed Should be on cefdinir, until follow-up with urology BMP, to recheck kidney function in 3 days Encourage fluids Potassium has been discontinued Patient's Health Concerns: Confusion Assessment: Encephalopathy, now resolved. Obstructive pyelonephritis on the left, treated with ureteral stent Plan of Treatment: Continue antibiotics, follow-up with urology Discharge Attestations Time Spent in Discharge Care*: greater than 30 min Status at Discharge: Cognitive status at discharge: cognitively intact, Behavioral status at discharge: cooperative, Quality Metrics Clinical Quality Measures [ No reported AMI, CVA or VTE this stay] Coding Level of Care Code 52666 Total time (in minutes) for Discharge: 32 Diagnoses Obstructive pyelonephritis N11.1 Acute metabolic encephalopathy G93.41 Acute kidney injury N17.9 CVA (cerebral vascular accident) I63.9 Diabetes mellitus E11.9 History of seizure Z87.898
[2022-12-13 16:00] VITALS: BP 139/76; PULSE 63; TEMP 36.9; O2SAT 94
[2022-12-13 16:29] LABS: Glucose Point of Care 126 mg/dL (70-110)
[2022-12-13 17:06] LABS: SARS Covid-2 Antigen negative (Negative)
[2022-12-13 18:34] VITALS: BP 139/76; PULSE 63; TEMP 36.9; O2SAT 94
== END 2022-12-13 18:30 | disposition skilled nursing facility (03) | DRG 659 ==
LOC: ER 14:50 → MEDSURG 15:55
PROVIDERS: Admitting Provider Urology; Emergency Provider Family Medicine; PCP Family Medicine; Visit Provider Internal Medicine
PROC: 0TJB8ZZ Inspection of Bladder, Via Natural or Artificial Opening Endoscopic (ICD-10-PCS; CPT 52000; principal; 2022-12-11 13:00)
PROC: 0T778DZ Dilation of Left Ureter with Intraluminal Device, Via Natural or Artificial Opening Endoscopic (ICD-10-PCS; CPT 50605; 2022-12-11 13:00)
DX: N13.6 Pyonephrosis (principal); G93.41 Metabolic encephalopathy; I69.954 Hemiplegia and hemiparesis following unspecified cerebrovascular disease affecting left non-dominant side; N17.9 Acute kidney failure, unspecified; E11.22 Type 2 diabetes mellitus with diabetic chronic kidney disease; I12.9 Hypertensive chronic kidney disease with stage 1 through stage 4 chronic kidney disease, or unspecified chronic kidney disease; N18.9 Chronic kidney disease, unspecified; N39.0 Urinary tract infection, site not specified; Z79.891 Long term (current) use of opiate analgesic; Z79.84 Long term (current) use of oral hypoglycemic drugs; Z96.0 Presence of urogenital implants; Z88.2 Allergy status to sulfonamides; E78.5 Hyperlipidemia, unspecified; N31.9 Neuromuscular dysfunction of bladder, unspecified; L89.151 Pressure ulcer of sacral region, stage 1; L89.152 Pressure ulcer of sacral region, stage 2; Z87.891 Personal history of nicotine dependence; Z87.440 Personal history of urinary (tract) infections
CPT/HCPCS: 36415; 36416; 36600; 51702; 70450; 71045; 74176; 76000; 80048; 80051; 80053; 81001; 82009; 82330; 82550; 82805; 82962; 83605; 83690; 83735; 85025; 87040; 87077; 87086; 87186; 87426; 93005; 96365; 96367; 96372; 99285; J1100; J1644; J1815; J2185; J2250; J2405; J2704; J2710; J3010; J3490; J7030

== ENCOUNTER 2022-12-17 15:08 | Emergency (ER) | payer MEDICARE, MEDICAID, SELFPAY ==
[2022-12-17] VITALS (12 sets, daily range): BP systolic 126–156; BP diastolic 66–100; PULSE 63–70; RESP 18; O2SAT 92–97; BMI 30.7
--- NOTE | 2022-12-17 15:21 | W.ED.ABDPA2 ---
Documented by User: LIBERTY Guadalupe 12/17/22 15:34 HPI - Abdominal Pain General: Chief Complaint: Abdominal Pain Stated Complaint: ABD PAIN Time Seen by Provider: 12/17/22 15:18 Source: patient Mode of arrival: EMS Limitations: no limitations History of Present Illness: Patient is a 57-year-old female with a history of diabetes, previous CVA, chronic kidney disease, neurogenic bladder with chronic retention of urine, recurrent kidney/ureter stones, and obstructive uropathy here for complaints of lower abdominal pain beginning yesterday. Patient was recently admitted to the hospital within the past week or so for obstructive pyelonephritis. Patient states she had been doing well following the surgery until yesterday when she began developing pain. She has not noticed any cloudy or foul-smelling urine from her suprapubic catheter. She is not complaining of flank pain or fevers. No vomiting. She states she has not had a bowel movement in over a week. MD elicited complaint: abdominal pain Onset (ago): day(s) (yesterday) Pain Consistency: constant Location: RLQ, LLQ and Suprapubic Severity: moderate Radiation: none Migration to: no migration Exacerbating factors: nothing Relieving factors: nothing Associated Symptoms: Reports constipation; Denies chills, fever(s), hematochezia, hematuria, hematemesis, melena, nausea and vomiting Review of Systems Const: Denies: fever(s), chills, body aches, fatigue or malaise Card: Denies: chest pain Resp: Denies: dyspnea GI: Reports: abdominal pain and constipation; Denies: nausea, vomiting, hematemesis, hematochezia or melena : Reports: other (denies any issues with her suprapubic catheter or urine output ); Denies: flank pain or hematuria Musc: Denies: neck pain, back pain, extremity pain or joint pain Skin/Breast: Denies: rash Neuro: Reports: other (chronic deficits from previous CVA; no acute findings); Denies: headache(s) PFSH ED PFSH: Medical History Acute cystitis Acute ischemic multifocal multiple vascular territories stroke Acute kidney injury EFREN (acute kidney injury) EFREN (acute kidney injury) Altered mental status Bilateral renal stones Partial stag[place] CKD (chronic kidney disease) CVA (cerebral vascular accident) left hemiparesis Cystitis Dehydration Depression Diabetes mellitus Diabetes mellitus, type II a1c 10/2020 12.7 Dyslipidemia Encephalopathy Feeling grief Groin ulcer Headache History of CVA (cerebrovascular accident) History of ischemic vertebrobasilar artery thalamic stroke History of seizure on topamax History of stroke Hypertension hypertensive emergency 10/2020 Hypertension Left pontine stroke Macular degeneration Neurogenic bladder suprapubic catheter, Obesity Obstructive pyelonephritis Obstructive pyelonephritis Recurrent obstructive pyelonephritis Recurrent UTI Requires assistance with activities of daily living (ADL) Seizures TIA (transient ischemic attack) Ulcer of sacral region, stage 1 x 2, one on each buttock Urethral pain UTI (urinary tract infection) Surgical History H/O detached retina repair H/O oral surgery History of suprapubic catheter came out in 2019, not replaced S/P appendectomy S/P cataract surgery S/P cholecystectomy S/P knee surgery S/P shoulder surgery Family History Father Cancer Lymphoma Mother CAD (coronary artery disease) Diabetes Chronic kidney disease (CKD) Social History Smoking and tobacco status: former smoker Alcohol intake: never Caregiver/support person: No Lives independently: No Marital status: Marital status details: 12/17/20 Current occupational status: disabled Physical Exam Const: COMMON NORMALS: no acute distress, no limitations and alert GENERAL APPEARANCE: cooperative NUTRITIONAL APPEARANCE: obese ORIENTATION/CONSCIOUSNESS: Yes awake, Yes oriented to person, Yes oriented to place and Yes oriented to time HENMT: COMMON NORMALS: normocephalic and atraumatic HEAD & SCALP: normal to inspection, normocephalic and atraumatic Resp: COMMON NORMALS: normal respiratory effort and clear to auscultation bilaterally AUSCULTATION: clear to auscultation bilaterally Cardio: COMMON NORMALS: regular rate and regular rhythm RATE: regular rate RHYTHM: regular rhythm GI: COMMON NORMALS: Soft to palpation INSPECTION: Yes normal to inspection and Yes other (suprapubic catheter appears clean; urine in tubing looks normal) AUSCULTATION: Yes normoactive bowel sounds PALPATION: Yes Soft to palpation, Yes Tenderness to palpation present (GI) (throughout lower abdomen), No Guarding due to palpation present (GI) and No Rigid due to palpation OTHER: exam somewhat limited secondary to body habitus : COMMON NORMALS: Yes no CVA tenderness BLADDER/KIDNEY EXAM: Yes no CVA tenderness Back/Pelvis: COMMON NORMALS: no CVA tenderness Extremity: COMMON NORMALS: normal to inspection, no joint enlargement, no clubbing, cyanosis or edema, no calf tenderness and no pedal edema GENERAL: Yes normal exam except as noted Neuro: REJI COMA SCALE: document GCS findings [place] coma scale eye opening: Spontaneous [place] coma scale verbal response: Orientated Reji coma scale motor response: Obey commands Reji coma scale total score: 15 SENSORIUM/ORIENTATION: Yes alert, Yes oriented to person, Yes oriented to place and Yes oriented to time Skin: COMMON NORMALS: no rashes or lesions noted GENERAL SKIN EXAM: no rashes or lesions noted Course Vital Signs: Vital signs: Vital Signs Pulse Rate 70 12/17/22 15:10 Respiratory Rate 18 12/17/22 15:10 Blood Pressure 146/75 12/17/22 17:00 Pulse Oximetry 97 12/17/22 16:30 Oxygen Delivery Me thod 12/17/22 15:10 MDM - Abdominal Pain Lab Data 12/17/22 15:45 12/17/22 15:45 Labs/Radiology: Radiology Impressions Abdomen/Pelvis CT 12/17/22 15:26 IMPRESSION: 1. 3.6 cm heterogeneously enhancing left renal lesion. This is a Bosniak type 4 lesion. Recommend urological consult. 2. 8 mm low-density lesion at the lateral aspect of the right kidney is too small to further characterize. 3. The bladder wall is thickened. This is nonspecific and may represent bladder outlet obstruction, inflammation or infection. Neoplastic process is included in the differential. COMMENTS: Consistent with the [employer]'s Incidental Findings Committee white paper (J Am Kirstin Radiol 2017): Any incidental adrenal lesion less than 1 cm is likely benign. No follow-up imaging is recommended for these lesions per consensus recommendations based on imaging criteria. Further lab evaluation could be pursued if warranted based on clinical findings. Laboratory Results WBC 10.4 10^3/uL (4.0-10.0) H 12/17/22 15:45 RBC 3.88 10^6/uL (4.1-5.3) L 12/17/22 15:45 Hgb 10.2 g/dL (11.5-15.3) L 12/17/22 15:45 Hct 32.7 % (37.0-47.0) L 12/17/22 15:45 MCV 84.3 fl (81-99) 12/17/22 15:45 MCH 26.3 pg (28.0-34.0) L 12/17/22 15:45 MCHC 31.2 g/dL (30.0-36.0) 12/17/22 15:45 RDW 13.2 % (12.1-15.1) 12/17/22 15:45 Plt Count 340 10^3/cmm (130-400) 12/17/22 15:45 MPV 9.1 fL (7.4-10.4) 12/17/22 15:45 Neut % (Auto) 61.9 % 12/17/22 15:45 Lymph % (Auto) 26.1 % 12/17/22 15:45 [place] % (Auto) 7.5 % 12/17/22 15:45 Eos % (Auto) 2.3 % 12/17/22 15:45 Baso % (Auto) 0.5 % 12/17/22 15:45 Neut # (Auto) 6.46 10^3/uL (1.8-7.7) 12/17/22 15:45 Lymph # (Auto) 2.7 10^3/uL (0.8-4.8) 12/17/22 15:45 [place] # (Auto) 0.8 10^3/uL (0.2-0.9) 12/17/22 15:45 Eos # (Auto) 0.2 10^3/uL (0.0-0.8) 12/17/22 15:45 Baso # (Auto) 0.1 10^3/uL (0.0-0.1) 12/17/22 15:45 Nucleated RBC % (auto) 0 % 12/17/22 15:45 Nucleated RBCs # 0.0 /100WBC 12/17/22 15:45 Sodium 135 mmol/L (136-145) L 12/17/22 15:45 Potassium 4.2 mmol/L (3.5-5.1) 12/17/22 15:45 Chloride 101 mmol/L (98-107) 12/17/22 15:45 Carbon Dioxide 19 mmol/L (22-29) L 12/17/22 15:45 Anion Gap 19.2 (5-19) H 12/17/22 15:45 BUN 25 mg/dL (6-20) H 12/17/22 15:45 Creatinine 1.6 mg/dL (0.5-0.9) H 12/17/22 15:45 GFR Calculation 33.1 mL/min (90-130) L 12/17/22 15:45 Glucose 165 mg/dL (65-115) H 12/17/22 15:45 Calculated Osmolality 288 mOsm/kg (285-295) 12/17/22 15:45 Calcium 8.8 mg/dL (8.5-10.5) 12/17/22 15:45 Total Bilirubin 0.2 mg/dL (0.15-1.2) 12/17/22 15:45 AST 10 U/L (0-32) 12/17/22 15:45 ALT 8 U/L (0-33) 12/17/22 15:45 Alkaline Phosphatase 97 U/L (35-105) 12/17/22 15:45 Total Protein 7.2 g/dL (6.6-8.7) 12/17/22 15:45 Albumin 3.6 g/dL (3.5-5.2) 12/17/22 15:45 Globulin 3.6 g/dL (1.3-4.6) 12/17/22 15:45 Lipase 25 U/L (13-60) 12/17/22 15:45 Urine Color Yellow (Yellow) 12/17/22 16:14 Urine Appearance Hazy (CLEAR) A 12/17/22 16:14 Urine pH 6 (5-7) 12/17/22 16:14 Ur Specific [place] 1.010 (1.005-1.030) 12/17/22 16:14 Urine Protein 1+ (Negative) H 12/17/22 16:14 Urine Glucose (UA) Norm (Normal) 12/17/22 16:14 Urine Ketones Negative (Negative) 12/17/22 16:14 Urine Blood 3+ (Negative) H 12/17/22 16:14 Urine Nitrate Negative (Negative) 12/17/22 16:14 Urine Bilirubin Neg (Negative) 12/17/22 16:14 Urine Urobilinogen Neg mg/dL (Negative) 12/17/22 16:14 Ur Leukocyte Esterase 2+ (Negative) H 12/17/22 16:14 Urine RBC Too numerous to cnt /hpf (0-2) H 12/17/22 16:14 Urine WBC Too numerous to cnt /hpf (0-5) H 12/17/22 16:14 Ur Squamous Epith Cells 0-4 /hpf (0-5) H 12/17/22 16:14 Amorphous Sediment Not Reportable 12/17/22 16:14 Urine Bacteria 1+ /hpf (NONE) H 12/17/22 16:14 Discharge Plan Discharge Patient Disposition: Home Clinical Impression: Constipation Qualifiers: Constipation type: unspecified constipation type Qualified Code(s): K59.00 - Constipation, unspecified UTI (urinary tract infection) Qualifiers: Urinary tract infection type: acute cystitis Hematuria presence: without hematuria Qualified Code(s): N30.00 - Acute cystitis without hematuria Condition: Stable Prescriptions: Continued cefdinir 300 mg capsule 300 mg PO BID 7 Days Qty: 14 0RF No Action methenamine hippurate [Hiprex] 1 gram tablet 1 g PO BID@07,19 escitalopram oxalate 20 mg tablet 20 mg PO DAILY@07 solifenacin [Vesicare] 5 mg tablet 5 mg PO DAILY@07 topiramate [Topamax] 100 mg tablet 100 mg PO DAILY@07 bisacodyl 10 mg suppository 10 mg [place] DAILY PRN (Reason: Constipation) [place] Solostar U-100 Insulin 100 unit/mL (3 mL) insulin pen 25 unit SUBCUT BEDTIME@19 hydrocodone-acetaminophen 5-325 mg tablet 1 tab PO Q4H PRN (Reason: Pain) cyclobenzaprine 10 mg tablet 10 mg PO Q8H PRN (Reason: muscle spasms) (DME) blood-glucose meter [Accu-Chek Gaby Plus Meter] Misc See Rx Instructions .ROUTE .MEDSUPPLY Qty: 1 0RF Rx Instructions: As directed (DME) Accu-Chek Gaby Plus test strp Strip See Rx Instructions .ROUTE .MEDSUPPLY Qty: 10 0RF Rx Instructions: As directed (DME) lancets [Accu-Chek Multiclix Lancet] Misc See Rx Instructions .ROUTE .MEDSUPPLY Qty: 100 0RF Rx Instructions: As directed metoprolol succinate 200 mg tablet extended release 24 hr 200 mg PO DAILY@07 clopidogrel 75 mg Tablet 75 mg PO DAILY@07 amlodipine 10 mg Tablet 10 mg PO DAILY@07 hydroxyzine HCl 25 mg tablet 25 mg PO Q8H PRN (Reason: Itching) pravastatin 80 mg Tablet 80 mg PO DAILY@19 Enema Disposable 19-7 gram/118 mL Enema 118 ml [place] DAILY PRN (Reason: Constipation) Januvia 25 mg tablet 25 mg PO DAILY@07 acetaminophen 650 mg Suppository 650 mg [place] Q6H PRN (Reason: pain/fever) potassium chloride 20 mEq tablet,ER particles/crystals 20 meq PO DAILY Discharge Orders: Discharge ED (Routine); Ordered 12/17/22 Ordered By: Guido Collier Referrals: Vu Neil Jr, MD [Primary Care Provider] - Discharge Diet: Usual diet Discharge Activity: Increase activity as tolerated Patient Instructions: Constipation (ED) Activity Restrictions/Additional Instructions: Encourage healthy diet and plenty of fluids. Continue medications as directed. Follow-up with primary care in 2 to 3 days for recheck. Return to the emergency department for fever greater than 100.4, blood in vomit or stool, or new concerns. Sign Out Sign Out Data: Patient Sign Out occurred on 12/17/22 at 17:24. Patient's care was discussed, and care was transferred from to Guido Collier. Coding Level of Care Code ED Grocery Specialist for Chg Fwd Documented by User: FRANTZ Laboy 12/17/22 18:09 HPI - Abdominal Pain General: Chief Complaint: Abdominal Pain Stated Complaint: ABD PAIN Time Seen by Provider: 12/17/22 15:18 PFS ED PFSH: Medical History Acute cystitis Acute ischemic multifocal multiple vascular territories stroke Acute kidney injury EFREN (acute kidney injury) EFREN (acute kidney injury) Altered mental status Bilateral renal stones Partial [place] CKD (chronic kidney disease) CVA (cerebral vascular accident) left hemiparesis Cystitis Dehydration Depression Diabetes mellitus Diabetes mellitus, type II a1c 10/2020 12.7 Dyslipidemia Encephalopathy Feeling grief Groin ulcer Headache History of CVA (cerebrovascular accident) History of ischemic vertebrobasilar artery thalamic stroke History of seizure on topamax History of stroke Hypertension hypertensive emergency 10/2020 Hypertension Left pontine stroke Macular degeneration Neurogenic bladder suprapubic catheter, Obesity Obstructive pyelonephritis Obstructive pyelonephritis Recurrent obstructive pyelonephritis Recurrent UTI Requires assistance with activities of daily living (ADL) Seizures TIA (transient ischemic attack) Ulcer of sacral region, stage 1 x 2, one on each buttock Urethral pain UTI (urinary tract infection) Surgical History H/O detached retina repair H/O oral surgery History of suprapubic catheter came out in 2019, not replaced S/P appendectomy S/P cataract surgery S/P cholecystectomy S/P knee surgery S/P shoulder surgery Family History Father Cancer Lymphoma Mother CAD (coronary artery disease) Diabetes Chronic kidney disease (CKD) Social History Smoking and tobacco status: former smoker Alcohol intake: never Caregiver/support person: No Lives independently: No Marital status: Marital status details: 12/17/20 Current occupational status: disabled Physical Exam Neuro: REJI COMA SCALE: document GCS findings [place] coma scale total score: 15 Course Vital Signs: Vital signs: Vital Signs Pulse Rate 70 12/17/22 15:10 Respiratory Rate 18 12/17/22 15:10 Blood Pressure 146/75 12/17/22 17:00 Pulse Oximetry 97 12/17/22 16:30 Oxygen Delivery Nh thod 12/17/22 15:10 MDM - Abdominal Pain Medical Decision Making 57-year-old female was brought in today for concerns of lower abdominal pain. [facility] resides at a [facility] since having a stroke. Patient has had renal stents placed in due to obstructive uropathy. Patient reported that symptoms of abdominal pain started today. No fever was reported. Urine's been draining clear. Patient does report no bowel movement since getting out of the hospital. Patient appears nontoxic. Respirations are even lungs are clear to auscultation. Abdomen soft with some lower suprapubic tenderness. Differential diagnosis includes but not limited to bowel obstruction, constipation, urinary tract infection, abscess. CBC noted some mild leukocytosis at 10,000 white blood cell counts. CMP showed some improvement in creatinine at 1.6, sodium was 135, and potassium was 4.2, with anion gap of 19.2. Urinalysis had a large number of red blood cells and white blood cells. Patient was given 1 g of Rocephin IV. Patient be continued on cefdinir based on last culture results. CT scan noted a cyst on the left kidney that was similar to prior exams, and some mild constipation. Large amount of stool was noted in the rectum. Patient was given a dose of lactulose for constipation. Patient states that she could get a suppository when she get back to the [facility]. Patient was given 1 L of IV fluids for concern for possible mild dehydration and will be continued on cefdinir at the correction. No signs of serious illness or injury was noted at this time. Lab Data 12/17/22 15:45 12/17/22 15:45 Labs/Radiology: Radiology Impressions Abdomen/Pelvis CT 12/17/22 15:26 IMPRESSION: 1. 3.6 cm heterogeneously enhancing left renal lesion. This is a Bosniak type 4 lesion. Recommend urological consult. 2. 8 mm low-density lesion at the lateral aspect of the right kidney is too small to further characterize. 3. The bladder wall is thickened. This is nonspecific and may represent bladder outlet obstruction, inflammation or infection. Neoplastic process is included in the differential. COMMENTS: Consistent with the [employer]'s Incidental Findings Committee white paper (J Am Kirstin Radiol 2017): Any incidental adrenal lesion less than 1 cm is likely benign. No follow-up imaging is recommended for these lesions per consensus recommendations based on imaging criteria. Further lab evaluation could be pursued if warranted based on clinical findings. Laboratory Results WBC 10.4 10^3/uL (4.0-10.0) H 12/17/22 15:45 RBC 3.88 10^6/uL (4.1-5.3) L 12/17/22 15:45 Hgb 10.2 g/dL (11.5-15.3) L 12/17/22 15:45 Hct 32.7 % (37.0-47.0) L 12/17/22 15:45 MCV 84.3 fl (81-99) 12/17/22 15:45 MCH 26.3 pg (28.0-34.0) L 12/17/22 15:45 MCHC 31.2 g/dL (30.0-36.0) 12/17/22 15:45 RDW 13.2 % (12.1-15.1) 12/17/22 15:45 Plt Count 340 10^3/cmm (130-400) 12/17/22 15:45 MPV 9.1 fL (7.4-10.4) 12/17/22 15:45 Neut % (Auto) 61.9 % 12/17/22 15:45 Lymph % (Auto) 26.1 % 12/17/22 15:45 [place] % (Auto) 7.5 % 12/17/22 15:45 Eos % (Auto) 2.3 % 12/17/22 15:45 Baso % (Auto) 0.5 % 12/17/22 15:45 Neut # (Auto) 6.46 10^3/uL (1.8-7.7) 12/17/22 15:45 Lymph # (Auto) 2.7 10^3/uL (0.8-4.8) 12/17/22 15:45 [place] # (Auto) 0.8 10^3/uL (0.2-0.9) 12/17/22 15:45 Eos # (Auto) 0.2 10^3/uL (0.0-0.8) 12/17/22 15:45 Baso # (Auto) 0.1 10^3/uL (0.0-0.1) 12/17/22 15:45 Nucleated RBC % (auto) 0 % 12/17/22 15:45 Nucleated RBCs # 0.0 /100WBC 12/17/22 15:45 Sodium 135 mmol/L (136-145) L 12/17/22 15:45 Potassium 4.2 mmol/L (3.5-5.1) 12/17/22 15:45 Chloride 101 mmol/L (98-107) 12/17/22 15:45 Carbon Dioxide 19 mmol/L (22-29) L 12/17/22 15:45 Anion Gap 19.2 (5-19) H 12/17/22 15:45 BUN 25 mg/dL (6-20) H 12/17/22 15:45 Creatinine 1.6 mg/dL (0.5-0.9) H 12/17/22 15:45 GFR Calculation 33.1 mL/min (90-130) L 12/17/22 15:45 Glucose 165 mg/dL (65-115) H 12/17/22 15:45 Calculated Osmolality 288 mOsm/kg (285-295) 12/17/22 15:45 Calcium 8.8 mg/dL (8.5-10.5) 12/17/22 15:45 Total Bilirubin 0.2 mg/dL (0.15-1.2) 12/17/22 15:45 AST 10 U/L (0-32) 12/17/22 15:45 ALT 8 U/L (0-33) 12/17/22 15:45 Alkaline Phosphatase 97 U/L (35-105) 12/17/22 15:45 Total Protein 7.2 g/dL (6.6-8.7) 12/17/22 15:45 Albumin 3.6 g/dL (3.5-5.2) 12/17/22 15:45 Globulin 3.6 g/dL (1.3-4.6) 12/17/22 15:45 Lipase 25 U/L (13-60) 12/17/22 15:45 Urine Color Yellow (Yellow) 12/17/22 16:14 Urine Appearance Hazy (CLEAR) A 12/17/22 16:14 Urine pH 6 (5-7) 12/17/22 16:14 Ur Specific [place] 1.010 (1.005-1.030) 12/17/22 16:14 Urine Protein 1+ (Negative) H 12/17/22 16:14 Urine Glucose (UA) Norm (Normal) 12/17/22 16:14 Urine Ketones Negative (Negative) 12/17/22 16:14 Urine Blood 3+ (Negative) H 12/17/22 16:14 Urine Nitrate Negative (Negative) 12/17/22 16:14 Urine Bilirubin Neg (Negative) 12/17/22 16:14 Urine Urobilinogen Neg mg/dL (Negative) 12/17/22 16:14 Ur Leukocyte Esterase 2+ (Negative) H 12/17/22 16:14 Urine RBC Too numerous to cnt /hpf (0-2) H 12/17/22 16:14 Urine WBC Too numerous to cnt /hpf (0-5) H 12/17/22 16:14 Ur Squamous Epith Cells 0-4 /hpf (0-5) H 12/17/22 16:14 Amorphous Sediment Not Reportable 12/17/22 16:14 Urine Bacteria 1+ /hpf (NONE) H 12/17/22 16:14 Discharge Plan Discharge Patient Disposition: Home Clinical Impression: Constipation Qualifiers: Constipation type: unspecified constipation type Qualified Code(s): K59.00 - Constipation, unspecified UTI (urinary tract infection) Qualifiers: Urinary tract infection type: acute cystitis Hematuria presence: without hematuria Qualified Code(s): N30.00 - Acute cystitis without hematuria Condition: Stable Prescriptions: Continued cefdinir 300 mg capsule 300 mg PO BID 7 Days Qty: 14 0RF No Action methenamine hippurate [Hiprex] 1 gram tablet 1 g PO BID@07,19 escitalopram oxalate 20 mg tablet 20 mg PO DAILY@07 solifenacin [Vesicare] 5 mg tablet 5 mg PO DAILY@07 topiramate [Topamax] 100 mg tablet 100 mg PO DAILY@07 bisacodyl 10 mg suppository 10 mg [place] DAILY PRN (Reason: Constipation) [place] Solostar U-100 Insulin 100 unit/mL (3 mL) insulin pen 25 unit SUBCUT BEDTIME@19 hydrocodone-acetaminophen 5-325 mg tablet 1 tab PO Q4H PRN (Reason: Pain) cyclobenzaprine 10 mg tablet 10 mg PO Q8H PRN (Reason: muscle spasms) (DME) blood-glucose meter [Accu-Chek Gaby Plus Meter] Misc See Rx Instructions .ROUTE .MEDSUPPLY Qty: 1 0RF Rx Instructions: As directed (DME) Accu-Chek Gaby Plus test strp Strip See Rx Instructions .ROUTE .MEDSUPPLY Qty: 10 0RF Rx Instructions: As directed (DME) lancets [Accu-Chek Multiclix Lancet] Misc See Rx Instructions .ROUTE .MEDSUPPLY Qty: 100 0RF Rx Instructions: As directed metoprolol succinate 200 mg tablet extended release 24 hr 200 mg PO DAILY@07 clopidogrel 75 mg Tablet 75 mg PO DAILY@07 amlodipine 10 mg Tablet 10 mg PO DAILY@07 hydroxyzine HCl 25 mg tablet 25 mg PO Q8H PRN (Reason: Itching) pravastatin 80 mg Tablet 80 mg PO DAILY@19 Enema Disposable 19-7 gram/118 mL Enema 118 ml [place] DAILY PRN (Reason: Constipation) Januvia 25 mg tablet 25 mg PO DAILY@07 acetaminophen 650 mg Suppository 650 mg [place] Q6H PRN (Reason: pain/fever) potassium chloride 20 mEq tablet,ER particles/crystals 20 meq PO DAILY Discharge Orders: Discharge ED (Routine); Ordered 12/17/22 Ordered By: Guido Collier Referrals: Vu Neil Jr, MD [Primary Care Provider] - Discharge Diet: Usual diet Discharge Activity: Increase activity as tolerated Patient Instructions: Constipation (ED) Activity Restrictions/Additional Instructions: Encourage healthy diet and plenty of fluids. Continue medications as directed. Follow-up with primary care in 2 to 3 days for recheck. Return to the emergency department for fever greater than 100.4, blood in vomit or stool, or new concerns. Sign Out Sign Out Data: Patient Sign Out occurred on 12/17/22 at 17:24. Patient's care was discussed, and care was transferred from to Guido Collier. Coding Level of Care Code ED Grocery Specialist for Ish Sawyer
--- NOTE | 2022-12-17 15:26 | CTR_ITS ---
PROCEDURE INFORMATION: Exam: CT Abdomen And Pelvis With Contrast Exam date and time: 12/17/2022 5:04 PM Age: 57 years old Clinical indication: Abdominal pain, recent obstructive pyelo/ureter stent TECHNIQUE: Imaging protocol: Computed tomography of the abdomen and pelvis with contrast. Radiation optimization: All CT scans at this facility use at least one of these dose optimization techniques: automated exposure control; mA and/or kV adjustment per patient size (includes targeted exams where dose is matched to clinical indication); or iterative reconstruction. Contrast material: OMNIPAQUE 350; Contrast volume: 75 ml; Contrast route: INTRAVENOUS (IV); Other protocol: This patient has received 8 known CTs and 0 known cardiac nuclear medicine studies in the 12 months prior to the current study. COMPARISON: CT kidney stone [id number] 12/11/2022 9:39 AM RADIATION DOSE METRICS: Total DLP (mGy-cm): 1099.63 FINDINGS: Tubes, catheters and devices: There is a double pigtail stent extending from the extrarenal pelvis on the right into the bladder. Double pigtail stent extends from the extrarenal pelvis on the left into the bladder. Coronary arteries: Multivessel atherosclerotic disease which involves the coronary arteries. Liver: Normal. No mass. Gallbladder and bile ducts: The gallbladder has been removed. Pancreas: Normal. No ductal dilation. Spleen: The spleen enlarged measuring 15.7 cm. Adrenal glands: 7 mm nodule in the left adrenal gland is too small to further characterize. Kidneys and ureters: There is a heterogeneously enhancing the lesion arising from the lateral aspect of the left kidney measuring 3.6 cm in the craniocaudad dimension, similar to the prior study. And 8 mm low-density lesion at the lateral aspect of the right kidney is too small to further characterize, also similar to the prior study. Stomach and bowel: There is a small amount of fluid in the esophagus consistent with reflux. Colonic constipation is present. Appendix: There has been an appendectomy. Intraperitoneal space: Unremarkable. No free air. No significant fluid collection. Vasculature: Unremarkable. No abdominal aortic aneurysm. Lymph nodes: Unremarkable. No enlarged lymph nodes. Urinary bladder: Diffuse bladder wall thickening. Percutaneous bladder catheter in place. Reproductive: Unremarkable as visualized. Bones/joints: Unremarkable. No acute fracture. Soft tissues: Unremarkable. CT/CT abdomen pelvis w con* [id number] IMPRESSION: 1. 3.6 cm heterogeneously enhancing left renal lesion. This is a Bosniak type 4 lesion. Recommend urological consult. 2. 8 mm low-density lesion at the lateral aspect of the right kidney is too small to further characterize. 3. The bladder wall is thickened. This is nonspecific and may represent bladder outlet obstruction, inflammation or infection. Neoplastic process is included in the differential. COMMENTS: Consistent with the [employer]'s Incidental Findings Committee white paper (J Am Kirstin Radiol 2017): Any incidental adrenal lesion less than 1 cm is likely benign. No follow-up imaging is recommended for these lesions per consensus recommendations based on imaging criteria. Further lab evaluation could be pursued if warranted based on clinical findings.
[2022-12-17 16:34] LABS: Alanine Aminotransferase 8 U/L (0-33); Albumin Level 3.6 g/dL (3.5-5.2); Alkaline Phosphatase 97 U/L (35-105); Anion Gap 19.2 (5-19); Aspartate Amino Transferase 10 U/L (0-32); Blood Urea Nitrogen 25 mg/dL (6-20); Calcium 8.8 mg/dL (8.5-10.5); Carbon Dioxide 19 mmol/L (22-29); Chloride 101 mmol/L (98-107); Globulin 3.6 g/dL (1.3-4.6); Glomerular Filtration Rate 33.1 mL/min (90-130); Glucose 165 mg/dL (65-115); Lipase 25 U/L (13-60); Osmolality Calculated 288 mOsm/kg (285-295); Potassium 4.2 mmol/L (3.5-5.1); Sodium 135 mmol/L (136-145); Total Bilirubin 0.2 mg/dL (0.15-1.2); Total Protein 7.2 g/dL (6.6-8.7)
[2022-12-17 16:44] LABS: Add Urine Microscopic? YES; Bilirubin Urine Neg (Negative); Blood Urine 3+ (Negative); Glucose Urine UA Norm (Normal); Ketones Urine Negative (Negative); Leukocyte Esterase Urine 2+ (Negative); Nitrate Urine Negative (Negative); Protein Urine 1+ (Negative); Urine Appearance Hazy (CLEAR); Urine Color Yellow (Yellow); Urobilinogen Urine Neg (Negative); pH Urine 6 (5-7)
[2022-12-17 17:04] LABS: Add Urine Culture? Yes; Bacteria Urine 1+ /hpf; RBC Urine TOO NUMEROUS TO CNT /hpf (0-2); Squamous Epithelial Cell Urine 0-4 /hpf (0-5); WBC Urine TOO NUMEROUS TO CNT /hpf (0-5)
[2022-12-17] MEDS: iohexol 350 mg/mL 500 mL Btl (per mL) IV (17:04)
[2022-12-17 17:27] LABS: Basophils # 0.1 10^3/uL (0.0-0.1); Basophils % 0.5 %; Eosinophils # 0.2 10^3/uL (0.0-0.8); Eosinophils % 2.3 %; Hematocrit 32.7 % (37.0-47.0); Hemoglobin 10.2 g/dL (11.5-15.3); Lymphocytes # 2.7 10^3/uL (0.8-4.8); Lymphocytes % 26.1 %; Mean Corpuscular HGB Conc 31.2 g/dL (30.0-36.0); Mean Corpuscular Hemoglobin 26.3 pg (28.0-34.0); Mean Corpuscular Volume 84.3 fl (81-99); Mean Platelet Volume 9.1 fL (7.4-10.4); Monocytes # 0.8 10^3/uL (0.2-0.9); Monocytes % 7.5 %; Neutrophils # 6.46 10^3/uL (1.8-7.7); Neutrophils % 61.9 %; Nucleated Red Blood Cells % 0 %; Platelet Count 340 10^3/cmm (130-400); Red Blood Count 3.88 10^6/uL (4.1-5.3); Red Cell Distribution Width 13.2 % (12.1-15.1); White Blood Count 10.4 10^3/uL (4.0-10.0)
[2022-12-17] MEDS: sodium chloride 0.9% 1,000 ML 999 ML IV (17:59)
[2022-12-17] MEDS: cefTRIAXone 1,000 MG in sodium chloride 0.9% (plus) 50 ML 100 MG IV (17:59)
[2022-12-17] MEDS: lactulose oral liq 20 gm/30 mL UDC PO (20:09)
== END 2022-12-17 20:29 | disposition home or self-care (01) ==
PROVIDERS: Physician Assistant; Emergency Provider Nurse Practitioner Family; PCP Family Medicine
DX: K59.00 Constipation, unspecified (principal); N30.00 Acute cystitis without hematuria; Z79.4 Long term (current) use of insulin; Z79.02 Long term (current) use of antithrombotics/antiplatelets; Z87.891 Personal history of nicotine dependence; E11.22 Type 2 diabetes mellitus with diabetic chronic kidney disease; I12.9 Hypertensive chronic kidney disease with stage 1 through stage 4 chronic kidney disease, or unspecified chronic kidney disease; N18.9 Chronic kidney disease, unspecified; Z86.73 Personal history of transient ischemic attack (TIA), and cerebral infarction without residual deficits; E78.5 Hyperlipidemia, unspecified; H35.30 Unspecified macular degeneration; Z87.440 Personal history of urinary (tract) infections
CPT/HCPCS: 74177; 80053; 81001; 83690; 85025; 87086; 96365; 99285; J0696; J7030; Q9967

== ENCOUNTER 2023-01-10 13:13 | Outpatient (CLI) | payer MEDICARE, MEDICAID, SELFPAY ==
--- NOTE | 2023-01-10 13:33 | XR_ITS ---
WS: [id number] KUB, AP view, 01/10/2023 Clinical Data: stones Comparison: KUB, 07/10/2022 Findings: No abnormal intraabdominal masses are seen. There is no dilatated small bowel or evidence of obstruct ion. There are bilateral renal stents in good position. There are calcifications overlying both kidneys wh ich do appear to be vascular. Numerous vascular calcifications are seen throughout the abdomen. There is a large amount of air in the small bowel and colon obscuring detail. XR/XR KUB [id number] Impression: Bilateral renal stents.
== END 2023-01-10 13:14 | disposition home or self-care (01) ==
PROVIDERS: PCP Family Medicine; Visit Provider Urology
DX: N31.9 Neuromuscular dysfunction of bladder, unspecified (principal); N20.0 Calculus of kidney
CPT/HCPCS: 74018; 99214

== ENCOUNTER 2023-01-14 06:13 | Day surgery (SDC) | payer MEDICARE, MEDICAID, SELFPAY ==
[2023-01-11 10:23] VITALS: BMI 34.2
[2023-01-14] VITALS (8 sets, daily range): BP systolic 146–171; BP diastolic 83–96; PULSE 65–69; RESP 16–20; TEMP 36.1–36.3; O2SAT 93–100
[2023-01-14] MEDS: sodium chloride 0.9% 1,000 ML 30 ML IV (07:04)
[2023-01-14 07:08] LABS: Glucose Point of Care 176 mg/dL (70-110)
--- NOTE | 2023-01-14 08:28 | P.HPUD_ITS ---
Surgery/Procedure H&P Update DATE OF PROCEDURE: January 14, 2023 DATE H&P PERFORMED: 01/10/23 H&P UPDATE INFORMATION: I have reviewed H&P completed within last 30 days, I have examined patient prior to procedure, No changes to prior documentation and H&P is in [facility] [place] EMR on date indicated PREOP DIAGNOSIS: Bilateral ureteral obstruction, obstructive pyelonephritis post stenting PLANNED PROCEDURE: Operation Date: 01/14/23 10:50 Proposed Procedures p Cystoscopy Bilateral stent exchange ureteroscopy laser retrograde 07952 35063 modifier 26 30153,N20.0(Not Applicable) - MD jimmy Moreno Ureteral Stent Exchange(Bilateral) - MD jimmy Moreno Ureteroscopy(Bilateral) - MD jimmy Moreno Retrograde Pyelogram(Bilateral) - MD jimmy Moreno Laser Lithotripsy(Bilateral) - Osorio Gama MD
--- NOTE | 2023-01-14 08:39 | ANES.PREANE2 ---
Pre-Anesthetic Assessment Height/Weight: Height 1.68 m Weight 96.162 kg Temp Pulse Resp BP Pulse Ox O2 Del Method 97.3 F L 69 17 171/84 96 01/14/23 06:46 01/14/23 06:46 01/14/23 06:46 01/14/23 06:46 01/14/23 06:46 01/14/23 06:47 Preop Diagnosis: Bilateral ureteral obstruction, obstructive pyelonephritis post stenting Operation Date: 01/14/23 10:50 Proposed Procedures p Cystoscopy Bilateral stent exchange ureteroscopy laser retrograde 01040 31150 modifier 26 61871,N20.0(Not Applicable) - Osorio Gama MD s Ureteral Stent Exchange(Bilateral) - Osorio Gama MD s Ureteroscopy(Bilateral) - Osorio Gama MD s Retrograde Pyelogram(Bilateral) - Osorio Gama MD s Laser Lithotripsy(Bilateral) - Osorio Gama MD Familial anesthetic complications: none Was Beta Henry taken within 24 hours: N/A Was Clonidine taken within 24 hours: N/A Last intake: Intake Last Liquid Date 01/13/23 Last Liquid Time 21:00 Last Solid Date 01/13/23 Last Solid Time 12:00 Social Tobacco and No alcohol Exam alert, oriented x 3, clear to auscultation bilaterally and regular rate & rhythm Airway Submandibular: within normal limits Cervical ROM: within normal limits Mallampati: Class II Dentition: false Pulmonary Chronic Obstructive Pulmonary Disease CV/HEM Anemia and Hypertension Chronic Renal Insufficiency Metabolic Diabetes Mellitus, Hyperlipidemia and Morbid Obesity Neuropsych Cerebrovascular Accident, Deficit (left weak), Headache and Seizure Anesthetic Plan ASA status: 3 Anesthesia: General Medications/Allergies Home Medications Medication Instructions Recorded Confirmed Last Taken Type escitalopram oxalate 20 mg tablet 20 mg PO DAILY@12/01/19 01/11/23 01/11/23 History solifenacin 5 mg tablet (Vesicare) 5 mg PO DAILY@12/01/19 01/11/23 01/11/23 History topiramate 100 mg tablet (Topamax) 100 mg PO DAILY@12/01/19 01/11/23 01/11/23 History cyclobenzaprine 10 mg tablet 10 mg PO Q8H PRN muscle spasms 10/12/20 01/11/23 12/22/20 History blood sugar diagnostic (Accu-Chek #10 ea 10/15/20 01/11/23 Unknown Rx Gaby Plus test strips) blood-glucose meter (Accu-Chek #1 ea 10/15/20 01/11/23 Unknown Rx Gaby Plus Meter) lancets (Accu-Chek Multiclix #100 ea 10/15/20 01/11/23 Unknown Rx Lancet) metoprolol succinate 200 mg 200 mg PO DAILY@12/17/20 01/11/23 01/11/23 History tablet,extended release 24 hr methenamine hippurate 1 gram 1 g PO BID@05/01/21 01/11/23 01/10/23 History tablet (Hiprex) bisacodyl 10 mg rectal suppository 10 mg MT DAILY PRN Constipation 08/03/21 01/11/23 Unknown History insulin glargine 100 unit/mL (3 25 unit SUBCUT BEDTIME@08/03/21 01/11/23 01/10/23 History mL) subcutaneous pen (Lantus Solostar U-100 Insulin) hydrocodone 5 mg-acetaminophen 325 1 tab PO Q4H PRN Pain 11/20/21 01/11/23 12/17/22 History mg tablet amlodipine 10 mg tablet 10 mg PO DAILY@01/05/22 01/11/23 01/11/23 History clopidogrel 75 mg tablet 75 mg PO DAILY@01/05/22 01/11/23 01/10/23 History pravastatin 80 mg tablet 80 mg PO DAILY@08/09/22 01/11/23 01/10/23 History sodium phosphates 19 gram-7 118 ml MT DAILY PRN Constipation 08/09/22 01/11/23 Unknown History gram/118 mL enema (Enema Disposable) hydroxyzine HCl 25 mg tablet 25 mg PO Q8H PRN Itching 09/19/22 01/11/23 Unknown History acetaminophen 650 mg rectal 650 mg MT Q6H PRN pain/fever 12/11/22 01/11/23 Unknown History suppository sitagliptin phosphate 25 mg tablet 25 mg PO DAILY@12/11/22 01/11/23 01/11/23 History (Januvia) Allergies Allergy/AdvReac Type Severity Reaction Status Date / Time levofloxacin [From Levaquin] Allergy NA Verified 03/13/23 06:52 metronidazole [From Flagyl] Allergy NA Verified 01/14/23 06:52 miconazole Allergy NA Verified 01/14/23 06:52 Sulfa (Sulfonamide Allergy NA Verified 01/14/23 06:52 Antibiotics) sulfamethoxazole Allergy Unknown Verified 01/14/23 06:52 [From Bactrim] trimethoprim [From Bactrim] Allergy Unknown Verified 01/14/23 06:52 Current Medications Generic Name Dose Route Start Last Admin Trade Name Freq PRN Reason Stop Dose Admin Sodium Chloride 1,000 mls @ 30 mls/hr 01/14/23 06:30 01/14/23 07:04 Sodium Chloride 0.9% IV 01/15/23 06:29 30 mls/hr .Q24H ED Administration PFSH Anesthesia Medical History Acute cystitis Acute ischemic multifocal multiple vascular territories stroke Acute kidney injury EFREN (acute kidney injury) EFREN (acute kidney injury) Altered mental status Bilateral renal stones Partial staghorn CKD (chronic kidney disease) CVA (cerebral vascular accident) left hemiparesis Cystitis Dehydration Depression Diabetes mellitus Diabetes mellitus, type II a1c 10/2020 12.7 Dyslipidemia Encephalopathy Feeling grief Groin ulcer Headache History of CVA (cerebrovascular accident) History of ischemic vertebrobasilar artery thalamic stroke History of seizure on topamax History of stroke Hypertension hypertensive emergency 10/2020 Hypertension Left pontine stroke Macular degeneration Neurogenic bladder suprapubic catheter, Obesity Obstructive pyelonephritis Obstructive pyelonephritis Recurrent obstructive pyelonephritis Recurrent UTI Requires assistance with activities of daily living (ADL) Seizures TIA (transient ischemic attack) Ulcer of sacral region, stage 1 x 2, one on each buttock Urethral pain UTI (urinary tract infection) Surgical History H/O detached retina repair H/O oral surgery History of suprapubic catheter came out in 2019, not replaced S/P appendectomy S/P cataract surgery S/P cholecystectomy S/P knee surgery S/P shoulder surgery Family History Father Cancer Lymphoma Mother CAD (coronary artery disease) Diabetes Chronic kidney disease (CKD) Social History Smoking and tobacco status: former smoker Alcohol intake: never Caregiver/support person: No Lives independently: No Marital status: Marital status details: 12/17/20 Current occupational status: disabled Data Anesthesia Cardiac Studies: Echocardiogram 01/11/22 Cardiac Event Monitor 10/05/21
--- NOTE | 2023-01-14 10:56 | PM.OP ---
Operative Report Date of procedure: January 14, 2023 Pre-op diagnosis: Bilateral ureteral obstruction, obstructive pyelonephritis post stenting Right UPJ stricture Post-op diagnosis: Bilateral ureteral obstruction, obstructive pyelonephritis post stenting Procedure done: 1. Cystoscopy, removal of LEFT ureteral stent 2. LEFT ureterorenoscopy with removal of sediment in the collecting system and ureter. Laser lithotripsy of some renal pelvic calculi 3. Replacement left ureteral stent 4. Removal of RIGHT ureteral stent 5. RIGHT ureterorenoscopy 6. Replacement right ureteral stent 7. Change suprapubic tube Implants: Bilateral ureteral stents Surgeon: Natan Estimated blood loss: Minimal Urine output: Not measured Complications: None Findings: Anesthesia: General LMA Condition: Stable Disposition: PACU with anticipation of discharge back to nursing Findings: Large amount of debris in the left proximal ureter and renal pelvis completely cleared. See dictation Large amount of debris in the RIGHT collecting system. Based on the amount it was decided to forego trying to clear it under today's anesthesia and that the case was rather protracted. We will make plans for completion on the right side. Her stent was changed No today. It had been in place now for almost 5 months Brief History: Erika is a very unfortunate 57-year-old white female with multiple medical problems including post CVA, neurogenic bladder with chronic SP tube, history of very complicated stones with obstructive pyelonephritis on multiple occasions. Most recently she had a left ureteral stent placed for obstructive pyelonephritis. This event preceded in September by attempt at stent placement on the right due to obstructive pyelonephritis after a CT scan showed no clear evidence of stone at that point. It was presumed based on the retrograde pyelogram findings on the right side at that time with no filling defect or no transit of contrast retrograde to the UPJ that this was in fact a stricture. Ultimately she underwent a percutaneous nephrostomy tube placement at [facility] followed by an antegrade stent placement at the same location. She had been evaluated by urology there with some mention of repeat follow-up ureteroscopy but I think that got off track when she had the subsequent contralateral left obstructive pyelonephritis mentioned above. Follow-up CT scans have showed what looks like calcifications mostly in the left collecting system but no evidence of that on plain films. I expect it is probably infectious sludge probably proteinaceous matrix. Plan today is to evaluate both of her upper urinary tracts with flexible ureterorenoscopy, remove as much of the debris as possible, laser lithotripsy if necessary, and almost certainly bilateral ureteral stent placements. Assessment of the RIGHT UPJ is also paramount for this procedure Procedure: After routine preoperative evaluation examination and obtaining of informed consent she was taken to the operating suite on 01/14/2023 where general anesthesia was administered without difficulty after appropriate timeout was performed, SCDs confirmed to be functioning, preoperative antibiotics administered, beta-lázaro protocol confirmed. Prepped and draped in usual sterile fashion in dorsolithotomy position pain careful attention to avoiding pressure points. Bladder was systematically examined 21 Greenlandic cystoscope with 30 degree lens was introduced into the urethral meatus and advanced into the bladder under videoscopy. The left ureteral stent was secured with grasping forceps on the very distal aspect and withdrawn through the urethral meatus. A flexible tip guidewire was advanced up the left ureteral stent curling in the area of the upper pole calyx. The stent was removed. A second guidewire was passed. The first was secured to the drapes as a safety wire the second was utilized as a working wire. A 24 cm ureteral access sheath was advanced over the working guidewire to the hub. The inner sheath was removed and a flexible ureteroscope was advanced over the guidewire through the sheath up the left ureter into the collecting system. Contrast was then injected through the scope in order to demonstrate the inner collecting system for investigative purposes as well as looking for filling defects LEFT RETROGRADE URETEROPYELOGRAM demonstrated: Large amount of sediment or filling defect within the collecting system consistent with increased sediment burden from previous imaging there was no extravasation. A combination of basketing flushing laser lithotripsy or basketing and flushing was conducted to clear the left renal pelvis and proximal ureter of sediment debris this was a long and arduous task but successful. On final inspection there was mild bleeding in the ureter from routine scope trauma but nothing of any consequence. There is no debris remaining in the upper tract. A cystoscope was backloaded over the guidewire and a 7 Greenlandic by 28 cm double-pigtail stent was advanced over the guidewire through the cystoscope into appropriate position as confirmed via fluoroscopy and cystoscopy Attention was then directed to the right side. A flexible tip guidewire was advanced up the right ureter next to the stent curling in the area of the upper pole calyx and the stent was grasped with grasping forceps and under fluoroscopic guidance was withdrawn with no difficulty of uncurling of the proximal end. The stent was withdrawn. A second guidewire was passed and the first wire was secured to the drapes as a safety wire. The flexible scope was then advanced over the working wire all the way up the ureter. The ureter was clear of debris. The renal pelvis so had a lot of debris within it. Some of it appeared to be partially calcified. At this point it was decided to replace the stent and reschedule for another time and that she had already been under anesthesia for about 2 hours. The cystoscope was then backloaded over the safety wire and a 7 Greenlandic by 28 cm double-pigtail stent was advanced over that guidewire up the right ureter into appropriate position as confirmed via fluoroscopy and cystoscopy. Her bladder was irrigated clear of any blood clots or debris. It was filled partially and then the suprapubic tube which had been clamped throughout the procedure was removed and a new 22 Greenlandic suprapubic tube was placed with good function and 10 cc placed in the balloon She tolerated the procedure well without complications and was awakened in the operating room and returned to the recovery room in stable condition.
[2023-01-14] MEDS: piperacillin-tazobactam 3.375 GM in sodium chloride 0.9% (plus) 50 ML IV (11:10)
--- NOTE | 2023-01-14 11:57 | SUR.OPER ---
OMNIPAQUE 350MGI/ML LOT [id number] EXP 03/29/25 10ML TO STERILE FIELD FOR PYLEOGRAMS, 10ML USED
--- NOTE | 2023-01-14 14:07 | SUR.PHASEII ---
1406 report given to PALAK Smith at [place].
--- NOTE | 2023-01-14 14:13 | SUR.PHASEII ---
ready transport called, bus van driver will not be here to transport patient until 1529.
--- NOTE | 2023-01-14 16:55 | ANE.PACU2 ---
Inpatient post-anesthesia follow up: Airway intact: Yes Vital signs: Temperature 97.0 F Pulse Rate 66 Respiratory Rate 18 Blood Pressure 151/87 Pulse Oximetry 96 Oxygen Delivery Me thod Room Air Oxygen Flow Rate 6 Fraction of Inspir ed Oxygen Hydration adequate: Yes Nausea and vomiting: No Pain level: 2 Mental status: Baseline
== END 2023-01-14 16:02 ==
PROVIDERS: PCP Family Medicine; Visit Provider Urology
PROC: 0TJB8ZZ Inspection of Bladder, Via Natural or Artificial Opening Endoscopic (ICD-10-PCS; CPT 52000; principal; 2023-01-14 10:40)
PROC: (CPT 52353; 2023-01-14 10:40)
PROC: 0TJ98ZZ Inspection of Ureter, Via Natural or Artificial Opening Endoscopic (ICD-10-PCS; CPT 52351; 2023-01-14 10:40)
PROC: (CPT 74420; 2023-01-14 10:40)
PROC: (CPT 52353; 2023-01-14 10:40)
DX: N11.1 Chronic obstructive pyelonephritis (principal); N20.0 Calculus of kidney; N31.9 Neuromuscular dysfunction of bladder, unspecified; I12.9 Hypertensive chronic kidney disease with stage 1 through stage 4 chronic kidney disease, or unspecified chronic kidney disease; N18.9 Chronic kidney disease, unspecified; E11.22 Type 2 diabetes mellitus with diabetic chronic kidney disease; E78.5 Hyperlipidemia, unspecified; Z79.4 Long term (current) use of insulin; Z87.891 Personal history of nicotine dependence; Z86.73 Personal history of transient ischemic attack (TIA), and cerebral infarction without residual deficits; Z96.0 Presence of urogenital implants
CPT/HCPCS: 52353; 36416; 82962; 88309; 88312; J1100; J2405; J2543; J2704; J3010; J7030

== ENCOUNTER 2023-01-22 09:25 | Inpatient (IN) | payer MEDICARE, MEDICAID, SELFPAY ==
[2023-01-22] VITALS (37 sets, daily range): BP systolic 127–159; BP diastolic 64–92; PULSE 70–85; RESP 14–27; TEMP 37.7–38.2; O2SAT 89–100; BMI 37.9; BMI 36.1
--- NOTE | 2023-01-22 09:35 | ED_ITS ---
Documented by User: LIBERTY Guadalupe 01/22/23 13:11 HPI - Weakness General: Chief complaint: Weakness Stated complaint: GENERAL WEAKNESS/ LLQ PAIN Time Seen by Provider: 01/22/23 09:26 Source: patient and EMS Mode of arrival: EMS Limitations: altered mental status and other (weakness) History of Present Illness: Patient is a 57-year-old female with a history of diabetes, previous CVA, chronic kidney disease, neurogenic bladder with suprapubic catheter, recurrent kidney/ureter stones, and obstructive uropathy here for complaints of left lower abdominal pain as well as weakness, lethargy, N/V, and AMS per her [facility].?According to EMS report she was recently diagnosed with a UTI and placed on antibiotics although according to clinical pharmacy technician med rec she was not-looks like she was placed on fluconazole recently. [facility] states she has progressively gotten weaker and now altered. Patient is A&O x 3 upon arrival. She does point to L lower pelvis /abdomen when asked where she hurts. She is not complaining of flank pain.?She does have a low grade fever upon arrival. MD Complaint: generalized weakness Onset (ago): day(s) Duration: constant Location: generalized Relieving factors: none Exacerbating factors: none Context: other (diagnosed with UTI recently) Associated symptoms: Reports confusion and fever(s); Denies chest pain, headache(s), nausea or vomiting Review of Systems Const: Reports: fever(s) Card: Denies: chest pain Resp: Denies: dyspnea GI: Reports: abdominal pain; Denies: nausea, vomiting or diarrhea : Reports: other (suprapubic catheter seems to be draining well); Denies: flank pain Musc: Denies: neck pain, back pain, extremity pain or joint pain Skin/Breast: Denies: rash Neuro: Reports: confusion; Denies: headache(s) PFSH ED PFSH: Medical History Bilateral renal stones Partial staghorn Chronic migraine without aura, intractable, with status migrainosus CKD (chronic kidney disease) CVA (cerebral vascular accident) Initial CVA 2011, has has multiple ischemic multiple vascular territory strokes, including vertebrobasilar artery thalamic stroke, left pontine stroke; left hemiparesis, difficulty communicating in conversation, short term more than 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 or intermediate school 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 memory loss Depression Diabetes mellitus, type II a1c 10/2020 12.7 Dyslipidemia History of seizure on topamax Hypertension hypertensive emergency 10/2020 Macular degeneration Neurogenic bladder suprapubic catheter Obesity Recurrent obstructive pyelonephritis Recurrent UTI Requires assistance with activities of daily living (ADL) Surgical History (Updated 01/22/23 @ 13:37 by Andie Ac MD) H/O detached retina repair H/O oral surgery History of suprapubic catheter S/P appendectomy S/P cataract surgery S/P cholecystectomy S/P knee surgery S/P shoulder surgery Status post cystoscopy with ureteral stent placement 01/14/2023, bilateral stents placed by Dr Gama Family History Father Cancer Lymphoma Mother CAD (coronary artery disease) Diabetes Chronic kidney disease (CKD) Social History Smoking and tobacco status: former smoker Alcohol intake: never Caregiver/support person: No Lives independently: No Marital status: Marital status details: 12/17/20 Current occupational status: disabled Physical Exam Const: COMMON NORMALS: patient oriented x3 and alert GENERAL APPEARANCE: cooperative and ill appearing (acute on chronically ill appearing patient) ORIENTATION/CONSCIOUSNESS: Yes awake, Yes oriented to person, Yes oriented to place and Yes oriented to time HENMT: COMMON NORMALS: normocephalic and atraumatic HEAD & SCALP: normal to inspection, normocephalic and atraumatic MOUTH: other (dry mucous membranes) Eye: GENERAL EYE: appearance normal, both eyes and all related structures Neck/C-Spine: COMMON NORMALS: no lymphadenopathy Resp: COMMON NORMALS: normal respiratory effort and clear to auscultation bilaterally AUSCULTATION: clear to auscultation bilaterally Cardio: COMMON NORMALS: regular rate and regular rhythm RATE: regular rate RHYTHM: regular rhythm GI: COMMON NORMALS: Normal to inspection, nondistended, normoactive bowel sounds present, Soft to palpation and no masses INSPECTION: Yes normal to inspection PALPATION: Yes Soft to palpation, Yes Tenderness to palpation present (GI) (LLQ), No Guarding due to palpation present (GI) and No Rigid due to palpation : COMMON NORMALS: Yes no CVA tenderness BLADDER/KIDNEY EXAM: Yes no CVA tenderness OTHER: suprapubic catheter present; yellow urine in bag with some purulent mucous like material present Back/Pelvis: COMMON NORMALS: no CVA tenderness Extremity: NARRATIVE EXTREMITY EXAM: chronic bilateral LE atrophy; patient is non-ambulatory GENERAL: Yes normal exam except as noted Neuro: REJI COMA SCALE: document GCS findings [place] coma scale eye opening: Spontaneous [place] coma scale verbal response: Orientated [place] coma scale motor response: Obey commands [place] coma scale total score: 15 COMMON NORMALS: patient oriented x3 and CN's II-XII intact bilaterally SENSORIUM/ORIENTATION: Yes alert, Yes oriented to person, Yes oriented to place and Yes oriented to time OTHER: chronic motor deficits from previous CVAs Skin: NARRATIVE SKIN EXAM: she has early breakdown/skin changes to bilateral gluteal clefts; small amount of stool present Course Consultations: Consultation #1: Dr. Ac-accepts admission Consultation #2: Dr. Gama-will consult/follow along with patient while in hospital Vital Signs: Vital signs: Vital Signs Temperature 99.8 F H 01/22/23 09:36 Pulse Rate 79 01/22/23 14:45 Respiratory Rate 19 H 01/22/23 14:45 Blood Pressure 148/75 01/22/23 14:45 Pulse Oximetry 97 01/22/23 14:45 Oxygen Delivery Me thod 01/22/23 09:36 MDM - Weakness Medical Decision Making Patient is a 57-year-old female with an extensive medical history here from [place] after they state patient has been weak, lethargic, has had some nausea and vomiting, and has been complaining of some left pelvic pain. According to EMS reports she was diagnosed with a UTI 5 days ago and placed on antibiotics although pharmacy team cannot verify this. She arrives to the ED today with a low-grade fever. She has a white count of 17.5. UTI is indicative of infection with 3+ blood, 2+ leuks, over 100 WBCs. Patient just had bilateral ureter stents placed by Dr. Gama on 01/14. On patient CT scan these appear to be in good position and patent. Radiologist did comment on some bilateral perinephric stranding. Patient is an uncontrolled diabetic with chronic kidney disease. I think given her entire clinical picture it would be best for her to come into the hospital for treatment. I have spoken to Dr. Ac who accepts admit. Dr. Gama will follow along as well. Lab Data 01/22/23 09:16 01/22/23 09:16 Radiology Impressions Chest X-Ray 01/22/23 09:35 IMPRESSION: Unremarkable frontal portable chest x-ray. Abdomen/Pelvis CT 01/22/23 10:07 Impression: 1. Bilateral ureteral stents in good position with bilateral moderate renal pelvic dilatation. 2. Negative for acute intra-abdominal or pelvic abnormalities. Laboratory Results WBC 17.5 10^3/uL (4.0-10.0) H 01/22/23 09:16 RBC 4.36 10^6/uL (4.1-5.3) 01/22/23 09:16 Hgb 11.6 g/dL (11.5-15.3) 01/22/23 09:16 Hct 36.3 % (37.0-47.0) L 01/22/23 09:16 MCV 83.3 fl (81-99) 01/22/23 09:16 MCH 26.6 pg (28.0-34.0) L 01/22/23 09:16 MCHC 32.0 g/dL (30.0-36.0) 01/22/23 09:16 RDW 13.6 % (12.1-15.1) 01/22/23 09:16 Plt Count 317 10^3/cmm (130-400) 01/22/23 09:16 MPV 9.7 fL (7.4-10.4) 01/22/23 09:16 Neut % (Auto) 85.1 % 01/22/23 09:16 Lymph % (Auto) 7.0 % 01/22/23 09:16 [place] % (Auto) 6.5 % 01/22/23 09:16 Eos % (Auto) 0.0 % 01/22/23 09:16 Baso % (Auto) 0.4 % 01/22/23 09:16 Neut # (Auto) 14.89 10^3/uL (1.8-7.7) H 01/22/23 09:16 Lymph # (Auto) 1.2 10^3/uL (0.8-4.8) 01/22/23 09:16 [place] # (Auto) 1.1 10^3/uL (0.2-0.9) H 01/22/23 09:16 Eos # (Auto) 0.0 10^3/uL (0.0-0.8) 01/22/23 09:16 Baso # (Auto) 0.1 10^3/uL (0.0-0.1) 01/22/23 09:16 Nucleated RBC % (auto) 0 % 01/22/23 09:16 Nucleated RBCs # 0.0 /100WBC 01/22/23 09:16 Sodium 138 mmol/L (136-145) 01/22/23 09:16 Potassium 4.5 mmol/L (3.5-5.1) 01/22/23 09:16 Chloride 106 mmol/L (98-107) 01/22/23 09:16 Carbon Dioxide 18 mmol/L (22-29) L 01/22/23 09:16 Anion Gap 18.5 (5-19) 01/22/23 09:16 BUN 52 mg/dL (6-20) H 01/22/23 09:16 Creatinine 2.6 mg/dL (0.5-0.9) H 01/22/23 09:16 GFR Calculation 18.9 mL/min (90-130) L 01/22/23 09:16 Glucose 329 mg/dL (65-115) H 01/22/23 09:16 POC Glucose 309 mg/dL (70-110) H 01/22/23 16:05 Calculated Osmolality 313 mOsm/kg (285-295) H 01/22/23 09:16 Lactic Acid 1.5 mmol/L (0.5-2.2) 01/22/23 09:53 Calcium 8.9 mg/dL (8.5-10.5) 01/22/23 09:16 Total Bilirubin 0.3 mg/dL (0.15-1.2) 01/22/23 09:16 AST 8 U/L (0-32) 01/22/23 09:16 ALT 7 U/L (0-33) 01/22/23 09:16 Alkaline Phosphatase 72 U/L (35-105) 01/22/23 09:16 Total Protein 7.3 g/dL (6.6-8.7) 01/22/23 09:16 Albumin 3.4 g/dL (3.5-5.2) L 01/22/23 09:16 Globulin 3.9 g/dL (1.3-4.6) 01/22/23 09:16 Urine Color Yellow (Yellow) 01/22/23 09:43 Urine Appearance Cloudy (CLEAR) A 01/22/23 09:43 Urine pH 8 (5-7) H 01/22/23 09:43 Ur Specific [place] 1.015 (1.005-1.030) 01/22/23 09:43 Urine Protein 1+ (Negative) H 01/22/23 09:43 Urine Glucose (UA) Norm (Normal) 01/22/23 09:43 Urine Ketones Negative (Negative) 01/22/23 09:43 Urine Blood 3+ (Negative) H 01/22/23 09:43 Urine Nitrate Negative (Negative) 01/22/23 09:43 Urine Bilirubin Neg (Negative) 01/22/23 09:43 Prot Sulfosalicylic Acd Positive (Negative) 01/22/23 09:43 Urine Urobilinogen Norm mg/dL (Negative) 01/22/23 09:43 Ur Leukocyte Esterase 2+ (Negative) H 01/22/23 09:43 Urine RBC 10-15 /hpf (0-2) H 01/22/23 09:43 Urine WBC >100 /hpf (0-5) H 01/22/23 09:43 Ur Squamous Epith Cells 0-4 /hpf (0-5) H 01/22/23 09:43 Amorphous Sediment Not Reportable 01/22/23 09:43 Urine Bacteria 1+ /hpf (NONE) H 01/22/23 09:43 Urine Mucus 3+ /hpf 01/22/23 09:43 Serum Ketones Negative (Negative) 01/22/23 09:16 Coronavirus 229E (PCR) Not detected (NOT DETECT) 01/22/23 11:02 Influenza Type A Ag negative (Negative) 01/22/23 11:02 Influenza Type B Ag negative (Negative) 01/22/23 11:02 SARS-CoV-2 (PCR) Not detected (NOT DETECT) 01/22/23 11:02 Discharge Plan Discharge Patient Disposition: Admitted As Inpatient Clinical Impression: Neurogenic bladder, Diabetes mellitus, Chronic suprapubic catheter, Acute cystitis with hematuria, CKD (chronic kidney disease), Ureteral stent present Condition: Stable Coding Level of Care Code ED Home Theatre Technician for Chg Fwd Documented by User: Vitaliy Dunn DO 01/22/23 16:41 HPI - Weakness General: Chief complaint: Weakness Stated complaint: GENERAL WEAKNESS/ LLQ PAIN Time Seen by Provider: 01/22/23 09:26 PFSH ED PFSH: Medical History Bilateral renal stones Partial staghorn Chronic migraine without aura, intractable, with status migrainosus CKD (chronic kidney disease) CVA (cerebral vascular accident) Initial CVA 2011, has has multiple ischemic multiple vascular territory strokes, including vertebrobasilar artery thalamic stroke, left pontine stroke; left hemiparesis, difficulty communicating in conversation, short term more than middle or intermediate school principal memory loss Depression Diabetes mellitus, type II a1c 10/2020 12.7 Dyslipidemia History of seizure on topamax Hypertension hypertensive emergency 10/2020 Macular degeneration Neurogenic bladder suprapubic catheter Obesity Recurrent obstructive pyelonephritis Recurrent UTI Requires assistance with activities of daily living (ADL) Surgical History (Updated 01/22/23 @ 13:37 by Andie Ac MD) H/O detached retina repair H/O oral surgery History of suprapubic catheter S/P appendectomy S/P cataract surgery S/P cholecystectomy S/P knee surgery S/P shoulder surgery Status post cystoscopy with ureteral stent placement 01/14/2023, bilateral stents placed by Dr Gama Family History Father Cancer Lymphoma Mother CAD (coronary artery disease) Diabetes Chronic kidney disease (CKD) Social History Smoking and tobacco status: former smoker Alcohol intake: never Caregiver/support person: No Lives independently: No Marital status: Marital status details: 12/17/20 Current occupational status: disabled Physical Exam Neuro: REJI COMA SCALE: document GCS findings Reji coma scale total score: 15 Course Vital Signs: Vital signs: Vital Signs Temperature 99.8 F H 01/22/23 09:36 Pulse Rate 79 01/22/23 14:45 Respiratory Rate 19 H 01/22/23 14:45 Blood Pressure 148/75 01/22/23 14:45 Pulse Oximetry 97 01/22/23 14:45 Oxygen Delivery Me thod 01/22/23 09:36 MDM - Weakness Medical Decision Making Patient is a 57-year-old female with an extensive medical history here from [place] after they state patient has been weak, lethargic, has had some nausea and vomiting, and has been complaining of some left pelvic pain. According to EMS reports she was diagnosed with a UTI 5 days ago and placed on antibiotics although pharmacy team cannot verify this. She arrives to the ED today with a low-grade fever. She has a white count of 17.5. UTI is indicative of infection with 3+ blood, 2+ leuks, over 100 WBCs. Patient just had bilateral ureter stents placed by Dr. Gama on 01/14. On patient CT scan these appear to be in good position and patent. Radiologist did comment on some bilateral perinephric stranding. Patient is an uncontrolled diabetic with chronic kidney disease. I think given her entire clinical picture it would be best for her to come into the hospital for treatment. I have spoken to Dr. Ac who accepts admit. Dr. Gama will follow along as well. Chart reviewed and patient discussed with midlevel. Agree with assessment and plan. Medical Records I reviewed the patient's medical records. Lab Data I reviewed the patient's lab results. 01/22/23 09:16 01/22/23 09:16 Radiology Impressions Chest X-Ray 01/22/23 09:35 IMPRESSION: Unremarkable frontal portable chest x-ray. Abdomen/Pelvis CT 01/22/23 10:07 Impression: 1. Bilateral ureteral stents in good position with bilateral moderate renal pelvic dilatation. 2. Negative for acute intra-abdominal or pelvic abnormalities. Laboratory Results WBC 17.5 10^3/uL (4.0-10.0) H 01/22/23 09:16 RBC 4.36 10^6/uL (4.1-5.3) 01/22/23 09:16 Hgb 11.6 g/dL (11.5-15.3) 01/22/23 09:16 Hct 36.3 % (37.0-47.0) L 01/22/23 09:16 MCV 83.3 fl (81-99) 01/22/23 09:16 MCH 26.6 pg (28.0-34.0) L 01/22/23 09:16 MCHC 32.0 g/dL (30.0-36.0) 01/22/23 09:16 RDW 13.6 % (12.1-15.1) 01/22/23 09:16 Plt Count 317 10^3/cmm (130-400) 01/22/23 09:16 MPV 9.7 fL (7.4-10.4) 01/22/23 09:16 Neut % (Auto) 85.1 % 01/22/23 09:16 Lymph % (Auto) 7.0 % 01/22/23 09:16 [place] % (Auto) 6.5 % 01/22/23 09:16 Eos % (Auto) 0.0 % 01/22/23 09:16 Baso % (Auto) 0.4 % 01/22/23 09:16 Neut # (Auto) 14.89 10^3/uL (1.8-7.7) H 01/22/23 09:16 Lymph # (Auto) 1.2 10^3/uL (0.8-4.8) 01/22/23 09:16 [place] # (Auto) 1.1 10^3/uL (0.2-0.9) H 01/22/23 09:16 Eos # (Auto) 0.0 10^3/uL (0.0-0.8) 01/22/23 09:16 Baso # (Auto) 0.1 10^3/uL (0.0-0.1) 01/22/23 09:16 Nucleated RBC % (auto) 0 % 01/22/23 09:16 Nucleated RBCs # 0.0 /100WBC 01/22/23 09:16 Sodium 138 mmol/L (136-145) 01/22/23 09:16 Potassium 4.5 mmol/L (3.5-5.1) 01/22/23 09:16 Chloride 106 mmol/L (98-107) 01/22/23 09:16 Carbon Dioxide 18 mmol/L (22-29) L 01/22/23 09:16 Anion Gap 18.5 (5-19) 01/22/23 09:16 BUN 52 mg/dL (6-20) H 01/22/23 09:16 Creatinine 2.6 mg/dL (0.5-0.9) H 01/22/23 09:16 GFR Calculation 18.9 mL/min (90-130) L 01/22/23 09:16 Glucose 329 mg/dL (65-115) H 01/22/23 09:16 POC Glucose 309 mg/dL (70-110) H 01/22/23 16:05 Calculated Osmolality 313 mOsm/kg (285-295) H 01/22/23 09:16 Lactic Acid 1.5 mmol/L (0.5-2.2) 01/22/23 09:53 Calcium 8.9 mg/dL (8.5-10.5) 01/22/23 09:16 Total Bilirubin 0.3 mg/dL (0.15-1.2) 01/22/23 09:16 AST 8 U/L (0-32) 01/22/23 09:16 ALT 7 U/L (0-33) 01/22/23 09:16 Alkaline Phosphatase 72 U/L (35-105) 01/22/23 09:16 Total Protein 7.3 g/dL (6.6-8.7) 01/22/23 09:16 Albumin 3.4 g/dL (3.5-5.2) L 01/22/23 09:16 Globulin 3.9 g/dL (1.3-4.6) 01/22/23 09:16 Urine Color Yellow (Yellow) 01/22/23 09:43 Urine Appearance Cloudy (CLEAR) A 01/22/23 09:43 Urine pH 8 (5-7) H 01/22/23 09:43 Ur Specific [place] 1.015 (1.005-1.030) 01/22/23 09:43 Urine Protein 1+ (Negative) H 01/22/23 09:43 Urine Glucose (UA) Norm (Normal) 01/22/23 09:43 Urine Ketones Negative (Negative) 01/22/23 09:43 Urine Blood 3+ (Negative) H 01/22/23 09:43 Urine Nitrate Negative (Negative) 01/22/23 09:43 Urine Bilirubin Neg (Negative) 01/22/23 09:43 Prot Sulfosalicylic Acd Positive (Negative) 01/22/23 09:43 Urine Urobilinogen Norm mg/dL (Negative) 01/22/23 09:43 Ur Leukocyte Esterase 2+ (Negative) H 01/22/23 09:43 Urine RBC 10-15 /hpf (0-2) H 01/22/23 09:43 Urine WBC >100 /hpf (0-5) H 01/22/23 09:43 Ur Squamous Epith Cells 0-4 /hpf (0-5) H 01/22/23 09:43 Amorphous Sediment Not Reportable 01/22/23 09:43 Urine Bacteria 1+ /hpf (NONE) H 01/22/23 09:43 Urine Mucus 3+ /hpf 01/22/23 09:43 Serum Ketones Negative (Negative) 01/22/23 09:16 Coronavirus 229E (PCR) Not detected (NOT DETECT) 01/22/23 11:02 Influenza Type A Ag negative (Negative) 01/22/23 11:02 Influenza Type B Ag negative (Negative) 01/22/23 11:02 SARS-CoV-2 (PCR) Not detected (NOT DETECT) 01/22/23 11:02 Discharge Plan Discharge Patient Disposition: Admitted As Inpatient Clinical Impression: Neurogenic bladder, Diabetes mellitus, Chronic suprapubic catheter, Acute c ystitis with hematuria, CKD (chronic kidney disease), Ureteral stent present Condition: Stable Coding Level of Care Code ED Home Theatre Technician for Ish Sawyer
--- NOTE | 2023-01-22 09:35 | XR_ITS ---
WS: [id number] EXAMINATION: XR chest 1V portable [id number] REASON FOR EXAM: weakness, low grade fevers COMPARISON: 12/11/2022 ORDER DATE: 01/22/2023 9:45 AM TECHNIQUE: A single, portable frontal chest x-ray was obtained. X-RAY FINDINGS: The lungs are clear. Pleural spaces are clear. No pleural effusions or pneumothorax. Cardiomediastinal silhouette is normal. No evidence for pulmonary edema. Soft tissue and osseous structures are unremarkable. No tubes or lines are present. Rotator cuff repair anchors noted in the right humerus. XR/XR chest 1V portable [id number] IMPRESSION: Unremarkable frontal portable chest x-ray.
[2023-01-22 09:48] LABS: Glucose Point of Care 352 mg/dL (70-110)
[2023-01-22 10:05] LABS: Basophils # 0.1 10^3/uL (0.0-0.1); Basophils % 0.4 %; Hematocrit 36.3 % (37.0-47.0); Hemoglobin 11.6 g/dL (11.5-15.3); Lymphocytes # 1.2 10^3/uL (0.8-4.8); Mean Corpuscular Hemoglobin 26.6 pg (28.0-34.0); Mean Corpuscular Volume 83.3 fl (81-99); Mean Platelet Volume 9.7 fL (7.4-10.4); Monocytes # 1.1 10^3/uL (0.2-0.9); Monocytes % 6.5 %; Neutrophils # 14.89 10^3/uL (1.8-7.7); Neutrophils % 85.1 %; Nucleated Red Blood Cells % 0 %; Platelet Count 317 10^3/cmm (130-400); Red Blood Count 4.36 10^6/uL (4.1-5.3); Red Cell Distribution Width 13.6 % (12.1-15.1); White Blood Count 17.5 10^3/uL (4.0-10.0)
--- NOTE | 2023-01-22 10:07 | CT_ITS ---
WS: [id number] CT scan of the abdomen and pelvis without Oral and IV contrast. Additional two-dimensional coronal an d sagittal reconstruction was performed. 01/22/2023 Clinical Data: ureter stents, hx of UTI/obstructive pyelo Comparison: CT abdomen pelvis, 12/17/2022 DLP: 1128.[address] scans at [facility] use at least one of these dose optimization techniques: automated e xposure control; mA and/or kV adjustment per patient size (includes targeted exams where dose is matc hed to clinical indication); or iterative reconstruction. Findings: The lower lungs show no nodules, masses or effusions. There are coronary artery calcifications. The liver, adrenal glands and pancreas are normal. There are clips in the gallbladder fossa from a ch olecystectomy. The spleen is enlarged to 15.7 cm with no intrasplenic masses or capsular abnormalitie s. The kidneys show bilateral perinephric stranding with vascular calcifications. There are bilateral re nal stents in good position. Bilateral renal pelvic dilatation is unchanged. The abdominal aorta is n ormal in size with calcification in the wall. No appendicitis or diverticulitis is seen. The stomach, small bowel and colon are not remarkable. The bladder demonstrates the ureteral stents. The wall bladder is thickened. No inguinal hernia is se en. The bones of the lower thorax, lumbar spine, pelvis, and hips are normal. CT/CT kidney stone [id number] Impression: 1. Bilateral ureteral stents in good position with bilateral moderate renal pel hamlet dilatation. 2. Negative for acute intra-abdominal or pelvic abnormalities.
[2023-01-22 10:22] LABS: Bilirubin Urine Neg (Negative); Blood Urine 3+ (Negative); Glucose Urine UA Norm (Normal); Ketones Urine Negative (Negative); Nitrate Urine Negative (Negative); Protein Urine 1+ (Negative); Specific Gravity, Urine 1.015 (1.005-1.030); Urine Appearance Cloudy (CLEAR); Urine Color Yellow (Yellow); pH Urine 8 (5-7)
[2023-01-22 10:23] LABS: Add Urine Culture? Yes; Add Urine Microscopic? YES; Bacteria Urine 1+ /hpf; Leukocyte Esterase Urine 2+ (Negative); Mucus Urine 3+ /hpf; Squamous Epithelial Cell Urine 0-4 /hpf (0-5); Sulfosalicylic Acid Urine Positive (Negative); Urobilinogen Urine Norm (Negative); WBC Urine >100 /hpf (0-5)
[2023-01-22 10:24] LABS: Alanine Aminotransferase 7 U/L (0-33); Albumin Level 3.4 g/dL (3.5-5.2); Alkaline Phosphatase 72 U/L (35-105); Anion Gap 18.5 (5-19); Aspartate Amino Transferase 8 U/L (0-32); Blood Urea Nitrogen 52 mg/dL (6-20); Calcium 8.9 mg/dL (8.5-10.5); Carbon Dioxide 18 mmol/L (22-29); Chloride 106 mmol/L (98-107); Globulin 3.9 g/dL (1.3-4.6); Glomerular Filtration Rate 18.9 mL/min (90-130); Glucose 329 mg/dL (65-115); Osmolality Calculated 313 mOsm/kg (285-295); Potassium 4.5 mmol/L (3.5-5.1); Sodium 138 mmol/L (136-145); Total Bilirubin 0.3 mg/dL (0.15-1.2); Total Protein 7.3 g/dL (6.6-8.7)
[2023-01-22 10:25] LABS: Lactic Sepsis W/Reflex 1.5 mmol/L (0.5-2.2)
[2023-01-22 10:25] LABS: Ketone (Acetest) Serum Negative (Negative)
[2023-01-22] MEDS: sodium chloride 0.9% 1,000 ML 999 ML IV (10:55)
[2023-01-22] MEDS: insulin regular-human 100 units/1 mL 10 UNIT IVP (10:59)
[2023-01-22 11:24] LABS: Influenza A by IFA negative (Negative); Influenza B by IFA negative (Negative)
[2023-01-22] MEDS: cefTRIAXone 1,000 MG in sodium chloride 0.9% (plus) 50 ML 100 MG IV (11:50)
[2023-01-22 12:04] LABS: Glucose Point of Care 340 mg/dL (70-110)
[2023-01-22 12:04] LABS: Glucose Point of Care 382 mg/dL (70-110)
--- NOTE | 2023-01-22 12:46 | P.HP_ITS ---
Providers/Chief Complaint Admitting Physician: Andie Ac MD Primary Care Provider: Vu Neil Jr, MD Chief Complaint: GENERAL WEAKNESS/ LLQ PAIN History of Present Illness Erika Shen is a 57 year old female resident of [place] who presented to the emergency room with chief complaint of altered mental status, lethargy, nausea, vomiting and abdominal pain. She has a history of complicated urological history with neurogenic bladder, stones, suprapubic catheter as well as recurrent obstructive pyelonephritis. She has been treated by urology at [facility] as well as by Dr. Gama here. She last underwent urological procedure here by Dr. Gama on January 14, 2023. She had cystoscopy with left ureteroscopy and left-sided laser lithotripsy with left ureteral stent placement along with removal of a prior right ureteral stent followed by introduction of a new stent and changing of her suprapubic catheter. She was discharged the same day. Dr. Gama prescribed fluconazole that started on January 17 and she is still taking that but she has not had any antibiotics within the last 10 days. Previous medical records here have been reviewed as have facility records. Ms. Shen reports I feel sick . She has had nausea and vomiting along with diarrhea but is not able to give me specifics on quantity or frequency. She has a headache. She generally does not feel well. Per nursing staff at [facility] she was doing okay until yesterday when they noted she was more confused than usual. She had 3 episodes of vomiting yesterday and poor p.o. intake. She also had 1 episode of loose stools. No blood was noted in vomitus or stools. No documented fever. She was able to get take her medications this morning and has not had any further vomiting but her mental status continued to decline prompting the visit to the ER. In the emergency room she was found to have leukocytosis with left shift, urinalysis consistent with recurrent infection and evidence of dehydration with acute kidney injury. She has received fluids and Rocephin. Review of previous cultures shows last organism was Proteus that was resistant to ciprofloxacin, nitrofurantoin and tetracycline but otherwise sensitive. Hospitalist were contacted for admission for further management. Review of Systems General: Reports: Other (ROS as per HPI or as otherwise noted here, limited due to mental status) Medications/Allergies Home Medications Medication Instructions Recorded Confirmed Last Taken Type escitalopram oxalate 20 mg tablet 20 mg PO DAILY@12/01/19 01/22/23 01/22/23 History solifenacin 5 mg tablet (Vesicare) 5 mg PO DAILY@12/01/19 01/22/23 01/22/23 History topiramate 100 mg tablet (Topamax) 100 mg PO DAILY@12/01/19 01/22/23 01/22/23 History cyclobenzaprine 10 mg tablet 10 mg PO Q8H PRN muscle spasms 10/12/20 01/22/23 12/22/20 History blood sugar diagnostic (Accu-Chek #10 ea 10/15/20 01/22/23 Unknown Rx Gaby Plus test strips) blood-glucose meter (Accu-Chek #1 ea 10/15/20 01/22/23 Unknown Rx Gaby Plus Meter) lancets (Accu-Chek Multiclix #100 ea 10/15/20 01/22/23 Unknown Rx Lancet) metoprolol succinate 200 mg 200 mg PO DAILY@12/17/20 01/22/23 01/22/23 History tablet,extended release 24 hr methenamine hippurate 1 gram 1 g PO BID@05/01/21 01/22/23 01/22/23 History tablet (Hiprex) bisacodyl 10 mg rectal suppository 10 mg SC DAILY PRN Constipation 08/03/21 01/22/23 Unknown History insulin glargine 100 unit/mL (3 25 unit SUBCUT BEDTIME@08/03/21 01/22/23 01/21/23 History mL) subcutaneous pen (Lantus Solostar U-100 Insulin) hydrocodone 5 mg-acetaminophen 325 1 tab PO Q4H PRN Pain 11/20/21 01/22/23 12/17/22 History mg tablet amlodipine 10 mg tablet 10 mg PO DAILY@01/05/22 01/22/23 01/22/23 History clopidogrel 75 mg tablet 75 mg PO DAILY@01/05/22 01/22/23 01/22/23 History pravastatin 80 mg tablet 80 mg PO DAILY@08/09/22 01/22/23 01/22/23 History sodium phosphates 19 gram-7 118 ml SC DAILY PRN Constipation 08/09/22 01/22/23 Unknown History gram/118 mL enema (Enema Disposable) hydroxyzine HCl 25 mg tablet 25 mg PO Q8H PRN Itching 09/19/22 01/22/23 Unknown History acetaminophen 650 mg rectal 650 mg SC Q6H PRN pain/fever 12/11/22 01/22/23 Unknown History suppository sitagliptin phosphate 25 mg tablet 25 mg PO DAILY@07 12/11/22 01/22/23 01/22/23 History (Januvia) fluconazole 150 mg tablet 150 mg PO DAILY 01/22/23 01/22/23 01/22/23 History Allergies Allergy/AdvReac Type Severity Reaction Status Date / Time levofloxacin [From Levaquin] Allergy NA Verified 01/22/23 09:57 metronidazole [From Flagyl] Allergy NA Verified 01/22/23 09:57 miconazole Allergy NA Verified 01/22/23 09:57 Sulfa (Sulfonamide Allergy NA Verified 01/22/23 09:57 Antibiotics) sulfamethoxazole Allergy Unknown Verified 01/22/23 09:57 [From Bactrim] trimethoprim [From Bactrim] Allergy Unknown Verified 01/22/23 09:57 PFSH Acute PFSH: Medical History Bilateral renal stones Partial staghorn Chronic migraine without aura, intractable, with status migrainosus CKD (chronic kidney disease) CVA (cerebral vascular accident) Initial CVA 2011, has has multiple ischemic multiple vascular territory strokes, including vertebrobasilar artery thalamic stroke, left pontine stroke; left hemiparesis, difficulty communicating in conversation, short term more than fdc memory loss Depression Diabetes mellitus, type II a1c 10/2020 12.7 Dyslipidemia History of seizure on topamax Hypertension hypertensive emergency 10/2020 Macular degeneration Neurogenic bladder suprapubic catheter Obesity Recurrent obstructive pyelonephritis Recurrent UTI Requires assistance with activities of daily living (ADL) Surgical History (Updated 01/22/23 @ 13:37 by Andie Ac MD) H/O detached retina repair H/O oral surgery History of suprapubic catheter S/P appendectomy S/P cataract surgery S/P cholecystectomy S/P knee surgery S/P shoulder surgery Status post cystoscopy with ureteral stent placement 01/14/2023, bilateral stents placed by Dr Gama Family History Father Cancer Lymphoma Mother CAD (coronary artery disease) Diabetes Chronic kidney disease (CKD) Social History Smoking and tobacco status: former smoker Alcohol intake: never Caregiver/support person: No Lives independently: No Marital status: Marital status details: 12/17/20 Current occupational status: disabled Vitals/I&O/Wt Last Vital Signs Temp 99.8 F H 01/22/23 09:36 Pulse 85 01/22/23 09:36 Resp 18 01/22/23 09:36 BP 152/78 01/22/23 09:36 Pulse Ox 96 01/22/23 09:36 O2 Del Method 01/22/23 09:36 Weight last 48 hrs Weight 106.594 kg Physical Exam Narrative: Patient is sleepy but will arouse. She will answer simple questions but is quick to drift back to sleep. She looks chronically and acutely ill. Left pupil is slightly smaller than right pupil but both are reactive. She has facial droop noted with left eyelid staying open when sleeping. Oropharynx with very dry mucous membranes and dry lips. Neck is large but supple. Some snoring is noted when she is sleeping but no gaps in respirations appreciated. Lungs are remarkable for upper airway noise but clear when awake. She has a regular rhythm. Heart sounds are slightly distant. Abdomen is soft. Mildly tender throughout but without any rebound or guarding. Suprapubic catheter is in place with no significant drainage. Urine in tubing is very cloudy. Muscle wasting is noted throughout more prominent on left side than right side. No pitting edema. Skin is dry. I am unable to currently visualize sacral area at this time due to bed limitations in the ER but by report from nursing staff at [place] she has a stage I decubitus present on admission. Both feet are externally rotated. Capillary refill is 2 to 3 seconds. No mottling is noted. Her speech is understandable. Data 01/22/23 09:16 01/22/23 09:16 Other Labs: Radiology Impressions Chest X-Ray 01/22/23 09:35 IMPRESSION: Unremarkable frontal portable chest x-ray. Abdomen/Pelvis CT 01/22/23 10:07 Findings: The lower lungs show no nodules, masses or effusions. There are coronary artery calcifications. The liver, adrenal glands and pancreas are normal. There are clips in the gallbladder fossa from a cholecystectomy. The spleen is enlarged to 15.7 cm with no intrasplenic masses or capsular abnormalities. The kidneys show bilateral perinephric stranding with vascular calcifications. There are bilateral renal stents in good position. Bilateral renal pelvic dilatation is unchanged. The abdominal aorta is normal in size with calcification in the wall. No appendicitis or diverticulitis is seen. The stomach, small bowel and colon are not remarkable. The bladder demonstrates the ureteral stents. The wall bladder is thickened. No inguinal hernia is seen. The bones of the lower thorax, lumbar spine, pelvis, and hips are normal. Impression: 1. Bilateral ureteral stents in good position with bilateral moderate renal pelvic dilatation. 2. Negative for acute intra-abdominal or pelvic abnormalities. Laboratory Results WBC 17.5 10^3/uL (4.0-10.0) H 01/22/23 09:16 RBC 4.36 10^6/uL (4.1-5.3) 01/22/23 09:16 Hgb 11.6 g/dL (11.5-15.3) 01/22/23 09:16 Hct 36.3 % (37.0-47.0) L 01/22/23 09:16 MCV 83.3 fl (81-99) 01/22/23 09:16 MCH 26.6 pg (28.0-34.0) L 01/22/23 09:16 MCHC 32.0 g/dL (30.0-36.0) 01/22/23 09:16 RDW 13.6 % (12.1-15.1) 01/22/23 09:16 Plt Count 317 10^3/cmm (130-400) 01/22/23 09:16 MPV 9.7 fL (7.4-10.4) 01/22/23 09:16 Neut % (Auto) 85.1 % 01/22/23 09:16 Lymph % (Auto) 7.0 % 01/22/23 09:16 [place] % (Auto) 6.5 % 01/22/23 09:16 Eos % (Auto) 0.0 % 01/22/23 09:16 Baso % (Auto) 0.4 % 01/22/23 09:16 Neut # (Auto) 14.89 10^3/uL (1.8-7.7) H 01/22/23 09:16 Lymph # (Auto) 1.2 10^3/uL (0.8-4.8) 01/22/23 09:16 [place] # (Auto) 1.1 10^3/uL (0.2-0.9) H 01/22/23 09:16 Eos # (Auto) 0.0 10^3/uL (0.0-0.8) 01/22/23 09:16 Baso # (Auto) 0.1 10^3/uL (0.0-0.1) 01/22/23 09:16 Nucleated RBC % (auto) 0 % 01/22/23 09:16 Nucleated RBCs # 0.0 /100WBC 01/22/23 09:16 Sodium 138 mmol/L (136-145) 01/22/23 09:16 Potassium 4.5 mmol/L (3.5-5.1) 01/22/23 09:16 Chloride 106 mmol/L (98-107) 01/22/23 09:16 Carbon Dioxide 18 mmol/L (22-29) L 01/22/23 09:16 Anion Gap 18.5 (5-19) 01/22/23 09:16 BUN 52 mg/dL (6-20) H 01/22/23 09:16 Creatinine 2.6 mg/dL (0.5-0.9) H 01/22/23 09:16 GFR Calculation 18.9 mL/min (90-130) L 01/22/23 09:16 Glucose 329 mg/dL (65-115) H 01/22/23 09:16 POC Glucose 340 mg/dL (70-110) H 01/22/23 12:00 Calculated Osmolality 313 mOsm/kg (285-295) H 01/22/23 09:16 Lactic Acid 1.5 mmol/L (0.5-2.2) 01/22/23 09:53 Calcium 8.9 mg/dL (8.5-10.5) 01/22/23 09:16 Total Bilirubin 0.3 mg/dL (0.15-1.2) 01/22/23 09:16 AST 8 U/L (0-32) 01/22/23 09:16 ALT 7 U/L (0-33) 01/22/23 09:16 Alkaline Phosphatase 72 U/L (35-105) 01/22/23 09:16 Total Protein 7.3 g/dL (6.6-8.7) 01/22/23 09:16 Albumin 3.4 g/dL (3.5-5.2) L 01/22/23 09:16 Globulin 3.9 g/dL (1.3-4.6) 01/22/23 09:16 Urine Color Yellow (Yellow) 01/22/23 09:43 Urine Appearance Cloudy (CLEAR) A 01/22/23 09:43 Urine pH 8 (5-7) H 01/22/23 09:43 Ur Specific [place] 1.015 (1.005-1.030) 01/22/23 09:43 Urine Protein 1+ (Negative) H 01/22/23 09:43 Urine Glucose (UA) Norm (Normal) 01/22/23 09:43 Urine Ketones Negative (Negative) 01/22/23 09:43 Urine Blood 3+ (Negative) H 01/22/23 09:43 Urine Nitrate Negative (Negative) 01/22/23 09:43 Urine Bilirubin Neg (Negative) 01/22/23 09:43 Prot Sulfosalicylic Acd Positive (Negative) 01/22/23 09:43 Urine Urobilinogen Norm mg/dL (Negative) 01/22/23 09:43 Ur Leukocyte Esterase 2+ (Negative) H 01/22/23 09:43 Urine RBC 10-15 /hpf (0-2) H 01/22/23 09:43 Urine WBC >100 /hpf (0-5) H 01/22/23 09:43 Ur Squamous Epith Cells 0-4 /hpf (0-5) H 01/22/23 09:43 Amorphous Sediment Not Reportable 01/22/23 09:43 Urine Bacteria 1+ /hpf (NONE) H 01/22/23 09:43 Urine Mucus 3+ /hpf 01/22/23 09:43 Serum Ketones Negative (Negative) 01/22/23 09:16 Influenza Type A Ag negative (Negative) 01/22/23 11:02 Influenza Type B Ag negative (Negative) 01/22/23 11:02 Micro: Microbiology 01/22/23 09:55 Blood Culture - Preliminary Blood SPECIMEN COLLECTED 01/22/23 09:53 Blood Culture - Preliminary Blood SPECIMEN COLLECTED A&P Assessment and plan (1) Acute pyelonephritis: Bilateral perinephric stranding noted on CT imaging. Last for positive urine cultures were notable for Proteus. Suspect similar organism this time based on findings thus far. Complex urological history contributes as outlined in this note. On chronic methenamine, solifinacin and recently prescribed fluconazole for yeast in the urine as I understand it. (2) Acute kidney injury: On chronic kidney disease stage 3b, secondary to volume depletion/prerenal and infection (3) Status post cystoscopy with ureteral stent placement: Bilateral ureteral stents placed on 01/14/[address] Gama who has been notified of admission (4) Suprapubic catheter: Chronic, tubing replaced on 01/14/2023 (5) Hypertension: Essential hypertension chronically managed with amlodipine, metoprolol. History of hypertensive emergency in the past. Current blood pressure is above ideal range. (6) Diabetes mellitus, type II: Insulin requiring with chronic kidney disease stage 3b, also on Januvia (7) CVA (cerebral vascular accident): History of multiple CVAs over the years with left hemiparesis and need for assistance with most ADLs. She is able to feed herself with her right hand. On chronic Plavix and is followed with Dr. Pennington, last seeing her in June of last year. No acute neurological symptoms beyond mental status changes attributable to infection at this point in time. (8) History of seizure: On chronic Topamax. No recent seizures reported. (9) Dyslipidemia: On chronic statin therapy. (10) Depression: On chronic escitalopram. (11) BMI 37.0-37.9, adult: Plan Stage I sacral decubiti present on admission Inpatient admission Rocephin IV Follow-up pending blood and urine cultures For now we will continue fluconazole that was originally planned to be for total of 14 days beginning on January 17 IV fluids Monitor urine output Recheck electrolytes and renal function in the morning Dr. Gama has been notified and will follow Suprapubic catheter management Continue home amlodipine and metoprolol Given decreased oral intake we will give a lower dose of long-acting insulin with sliding scale currently, monitoring blood sugars Continue home Plavix and statin Continue home Topamax Continue home escitalopram and hydroxyzine Continue home Flexeril and hydrocodone, monitoring mental status prior to admission If available can continue home methenamine and solifenacin Wound care as needed to sacral area Subcu heparin for DVT prophylaxis along with SCDs Full code as per available records Supportive care otherwise Plans were discussed with patient and she was given an opportunity to ask questions Attestations Medical Necessity Statement*: Anticipated stay greater than 2 midnights in this patient with a very complex urological history status post bilateral ureteral stent placement on January 14. She again presents with evidence of acute pyelonephritis and acute kidney injury. She is being treated with IV antibiotics, IV fluids, serial labs for monitoring of urine output and response to treatment and will be seen by urology during the hospital stay. Given the complexity of not only her urological history but comorbid medical conditions at high risk of rapid clinical decline up to and including the possibility of without management and monitoring in the acute inpatient setting as described. and Moderate Time for a total of 60 minutes, includes reviewing past or interval history, examining/interviewing patient, placing orders, communicating with other healthcare providers and documenting encounter Diagnoses Acute pyelonephritis N10 Acute kidney injury N17.9 Status post cystoscopy with ureteral stent placement Z96.0 Suprapubic catheter Z93.59 Hypertension I10 Diabetes mellitus, type II E11.9 CVA (cerebral vascular accident) I63.9 History of seizure Z87.898 Dyslipidemia E78.5 Depression F32.9 BMI 37.0-37.9, adult Z68.37
[2023-01-22 12:51] LABS: Adenovirus Not Detected (NOT DETECT); Chlamydia Pneumoniae Not Detected (NOT DETECT); Coronavirus 229E,HKU1,NL63,OC4 Not Detected (NOT DETECT); Human Metapneumovirus Not Detected (NOT DETECT); Human Rhinovirus/Enterovirus Not Detected (NOT DETECT); Influenza A Not Detected (NOT DETECT); Influenza A H1 Not Detected (NOT DETECT); Influenza A H1-2009 Not Detected (NOT DETECT); Influenza A H3 Not Detected (NOT DETECT); Influenza B Not Detected (NOT DETECT); Mycoplasma Pneumoniae Not Detected (NOT DETECT); Parainfluenza Virus Type 1 Not Detected (NOT DETECT); Parainfluenza Virus Type 2 Not Detected (NOT DETECT); Parainfluenza Virus Type 3 Not Detected (NOT DETECT); Parainfluenza Virus Type 4 Not Detected (NOT DETECT); Respiratory Syncytial Virus A Not Detected (NOT DETECT); Respiratory Syncytial Virus B Not Detected (NOT DETECT); SARS-COV-2 Not Detected (NOT DETECT)
[2023-01-22 16:09] LABS: Glucose Point of Care 309 mg/dL (70-110)
--- NOTE | 2023-01-22 16:22 | PC.NURSE ---
update called to [facility] per request
--- NOTE | 2023-01-22 16:27 | PC.NURSE ---
update regarding admission called to PALAK Haley at [facility]
--- NOTE | 2023-01-22 18:23 | PC.NURSE ---
report called to [facility] on Med Surg
--- NOTE | 2023-01-22 20:28 | PC.NURSE ---
When nurse rounded on patient, patient was in a deep sleep. Nurse had to sternal rub patient aggressively in order for patient to open eyes and respond to nurse. Patient A&O to name and . When asked where she was, patient repeated her name. Patient could not tell nurse why she was in the hospital. Anterior lungs auscultated coarse, patient currently on 1L and states that she does not use oxygen at [facility]. Clear deficits noted on patient's left side of body; unable squeeze nurse's hand, or move arm or leg due to previous CVA. Left sided facial droop noted. Abdomen flat and tender in all quadrants, bowel sounds present in all four quadrants. Suprapubic catheter noted, white-yellow clots noted in catheter, patent and draining at this time however. Anterior portion of left foot noted to be non-pitting edematous. No redness noted on bottoms of patient heels. When asked if patient has wounds or sores on bottom, patient responded yes. Nurse has not yet been able to assess wounds, as patient is at least 2-assist. Call light was given to patient.
[2023-01-22] MEDS: insulin lispro 100 unit/1 mL SUBCUT (21:07)
[2023-01-22] MEDS: heparin 5,000 unit/mL INJ 1 mL 5000 UNIT SUBCUT (21:07)
[2023-01-22] MEDS: sodium chlor 0.9% + KCl 20 mEq 20 MEQ/1,000 ML BAG 100 MEQ IV (21:08)
[2023-01-22] MEDS: insulin glargine 100 units/1 mL 10 UNIT SUBCUT (21:10)
[2023-01-23] VITALS (41 sets, daily range): BP systolic 89–168; BP diastolic 47–98; PULSE 74–89; RESP 16–25; TEMP 38.2–39.3; O2SAT 94–100
--- NOTE | 2023-01-23 01:34 | PC.NURSE ---
stage 2 ulcer found on patient's sacrum. Optifoam dated, initialed and applied. Reddened areas moisturized.
--- NOTE | 2023-01-23 01:35 | PC.NURSE ---
Patient A&O to name, , and place. Patient stated that it was 2021.
[2023-01-23 05:06] LABS: Glucose Point of Care 318 mg/dL (70-110)
[2023-01-23 05:14] LABS: Basophils % 0.3 %; Hematocrit 34.1 % (37.0-47.0); Hemoglobin 10.6 g/dL (11.5-15.3); Lymphocytes # 0.9 10^3/uL (0.8-4.8); Mean Corpuscular HGB Conc 31.1 g/dL (30.0-36.0); Mean Corpuscular Hemoglobin 26.4 pg (28.0-34.0); Mean Corpuscular Volume 84.8 fl (81-99); Mean Platelet Volume 9.8 fL (7.4-10.4); Monocytes # 0.9 10^3/uL (0.2-0.9); Monocytes % 5.9 %; Neutrophils # 12.57 10^3/uL (1.8-7.7); Neutrophils % 87.2 %; Nucleated Red Blood Cells % 0 %; Platelet Count 287 10^3/cmm (130-400); Red Blood Count 4.02 10^6/uL (4.1-5.3); Red Cell Distribution Width 13.8 % (12.1-15.1); White Blood Count 14.4 10^3/uL (4.0-10.0)
[2023-01-23] MEDS: acetaminophen 325 mg Tablet 650 MG PO (05:21)
--- NOTE | 2023-01-23 05:25 | XRR_ITS ---
PROCEDURE INFORMATION: Exam: XR Chest Exam date and time: 01/23/2023 5:36 AM Age: 57 years old Clinical indication: Prior surgery; Surgery type: Gb; Patient HX: New onset of tachypnea TECHNIQUE: Imaging protocol: Radiologic exam of the chest. Views: 1 view. COMPARISON: CR XR chest 1V portable [id number] 12/11/2022 9:44 AM FINDINGS: Lungs: Mild reticular opacity in both lung bases. No focal consolidation. Pleural spaces: There is no pleural effusion or pneumothorax. Heart/Mediastinum: Cardiomediastinal contours are unremarkable. Bones/joints: Surgical changes of the right shoulder. No acute fracture. XR/XR chest 1V portable [id number] IMPRESSION: Reticular opacity in the lower lungs bilaterally, new since 12/11/2022. Differential diagnosis: Interstitial edema, atypical infection, hypoventilation with subsegmental atelectasis.
[2023-01-23 05:27] LABS: Anion Gap 19.6 (5-19); Blood Urea Nitrogen 57 mg/dL (6-20); Calcium 8.2 mg/dL (8.5-10.5); Carbon Dioxide 16 mmol/L (22-29); Chloride 111 mmol/L (98-107); Glomerular Filtration Rate 13.9 mL/min (90-130); Glucose 287 mg/dL (65-115); Osmolality Calculated 320 mOsm/kg (285-295); Phosphorus 4.1 mg/dL (2.5-4.5); Potassium 4.6 mmol/L (3.5-5.1); Sodium 142 mmol/L (136-145)
--- NOTE | 2023-01-23 05:29 | PC.NURSE ---
Dr Flores notified of patient's temperature of 102, and that patient was breathing approximately 30/min. Tylenol was administered to patient. Dr Flores stated that he placed a hold on patient's fluid and placed an order to do a chest x-ray.
[2023-01-23] MEDS: FUROsemide 10 mg/mL SDV 4mL 40 MG IVP (06:48)
--- NOTE | 2023-01-23 06:58 | XR_ITS ---
WS: [id number] EXAMINATION: XR chest 1V portable [id number] REASON FOR EXAM: intubation COMPARISON: 01/21/2023 ORDER DATE: 01/23/2023 6:58 AM TECHNIQUE: A single, portable frontal chest x-ray was obtained. X-RAY FINDINGS: There is bibasilar atelectasis.. Pleural spaces are clear. No pleural effusions or pneumothorax. Cardiomediastinal silhouette is normal. No evidence for pulmonary edema. Soft tissue and osseous structures are unremarkable. Endotracheal tube is in satisfactory position. An enteric tube needs to be advanced 5 to 6 cm with pr oximal sidehole remaining in the distal esophagus.. XR/XR chest 1V portable [id number] IMPRESSION: Bibasilar atelectasis. Recommend advancement of the enteric tube as noted above.
--- NOTE | 2023-01-23 07:11 | PM.CCN ---
Critical Care Event Note Called by second floor nursing staff at the request of Dr. Flores to assist with the patient. She was in respiratory distress and Dr. Flores was requesting that we intubate patient emergently The high probability of a clinically significant, sudden or life threatening deterioration of the patient's [respiratory] system(s) required my full and direct attention, intervention and personal management. The critical care time is as shown. This time is in addition to time spent performing any reported procedures but includes the following: [x] Data and vital sign review and interpretation [x] Patient assessment, examination and intervention [x] Documentation [x] Medication orders and management Critical Care Time Code activated: No Critical Care Time (min): 15 Procedures Intubation Time out performed: Yes Sedative: etomidate Mg given: 20 Paralytic: succinylcholine Mg given: 110 Laryngoscope: fiber optic video scope ET tube size: 8 ET tube uncuffed: No Tube secured depth (cm): 21 Tube secured location: teeth ([place]) Tube placement confirmation: visualized tube passing through cords, equal breath sounds bilaterally, no breath sounds over epigastrium and confirmation by capnometry Patient tolerated procedure: well Intubation complications: none Additional comments: Accompanied patient to the ICU from the floor. While we are preparing to enter the elevator patient became restless. Was given 100 mg of IV push propofol for sedation until we could arrived in the ICU. Blood pressure in the room prior to leaving for the ICU was 160 systolic. Coding Level of Care Code Acute Code for Chg Fwd
--- NOTE | 2023-01-23 07:12 | W.PM.EVENTAC ---
Event Note Event Note: This morning spiked a fever 102.7F, becoming tachypneic, started to breathe into the 30s in rate, saturation in the 90s on 2 L, blood pressure 166/75. Request a stat chest x-ray, pulmonary hypertension appears to be showing pulmonary edema changes, held IVF, requested a dose of Lasix. ABG. On the way to see her, receiving updated she is now further deteriorating, saturation down to 80s, started on nonrebreather mask, BiPAP requested. Arriving to see her, reports that she has gotten more lethargic, on arrival she is in respiratory distress, hypotensive, not following directions, snoring, not protecting airway. Not hypoglycemic. Decision for emergent intubation, intubated by Dr Dunn uneventfully. Requested repeat CXR. She is moving to ICU. Vent orders placed, propofol sedation. Possible aspiration PNA/pneumonitis, broadened Abx to Zosyn, Vanc. Updated day team. Updated sister Mrs Johnston regarding acute change in condition. Sister states she frequently gets quite confused with her complicated UTIs. Event Notes Attestations Time Spent in Patient Care: Critical care time 40 mins.
--- NOTE | 2023-01-23 07:39 | PC.NURSE ---
Approximately [employer] came to find this nurse and inform her that the patient was having dyspnea and oxygen saturations were dropping into the low 80s, despite efforts in position changes and placing patient on non-rebreather. This nurse went into the patient room to assess the patient and found the patient grunting and gasping for air, showing signs of respiratory distress with a respiratory rate in the 30s. Dr Flores was notified of the situation and came to see patient with plans to place patient on bipap. Upon arrival to patient's room, Dr Flores assessed the patient and determined that the patient required intubation. Dr Dunn was requested at bedside, who intubated the patient. Transfer orders were put in to move patient to ICU.
--- NOTE | 2023-01-23 07:50 | ECG_ITS ---
[facility] Test Date: 2023-01-23 Pat Name: Erika Shen Department: Room: ICU12 Gender: Female Medical Science Liaison: : 1965 Requested By: Julius Bazan Order Number: [id number] Anton MD: Ramu Mccracken M.D. Measurements Intervals [place] Rate: 78 P: 33 MA: 160 QRS: -18 QRSD: 85 T: 23 QT: 397 QTc: 454 Interpretive Statements SINUS RHYTHM LOW QRS VOLTAGE IN PRECORDIAL LEADS [QRS DEFLECTION < 1.0 mV IN CHEST LEADS] Compared to ECG 12/11/2022 08:56:19 Low QRS voltage now present Electronically Signed On 01-23-2023 16:44:00 CDT by Ramu Mccracken M.D. [email or web address]
--- NOTE | 2023-01-23 07:51 | US_ITS ---
WS: [id number] RENAL ULTRASOUND REASON FOR EXAM: stents, sepsis COMPARISON: None available. ORDER DATE: 01/23/2023 8:41 AM TECHNIQUE: Grayscale and Doppler ultrasound examination of the kidneys. FINDINGS: Right kidney: Right kidney measures 11.1 cm x 5.9 cm x 6.8 cm. Right cortical diameter 10.3 mm There is 11.6 mm cyst in the upper right kidney. Left kidney: Left kidney measures 11.1 cm x 4.7 cm x 7.1 cm. Left cortical diameter of 12.6 mm There is moderate left-sided hydronephrosis. Satisfactory appearing vascular flow noted in each kidney. US/US renal BI* [id number] IMPRESSION: Moderate left hydronephrosis.
--- NOTE | 2023-01-23 07:51 | USCV_ITS ---
Erika Shen Age: 57 Gender: F : 1965 Exam Date: 01/23/2023 10:02 Ordering Phys: Julius Bazan MD Technologist: Adams Wheatley [place] [facility] [place]ication: sob BP: 113 / 59 HR: 76 Rhythm: Sinus Technical Quality: Adequate MEASUREMENTS (Male / Female) Normal Values 2D ECHO LV Diastolic Diameter PLAX 3.8 cm 4.2 - 5.9 / 3.9 - 5.3 cm LV Systolic Diameter PLAX 2.4 cm IVS Diastolic Thickness 0.8 cm 0.6 - 1.0 / 0.6 - 0.9 cm IVS Systolic Thickness 1.1 cm LVPW Diastolic Thickness 1.6 cm 0.6 - 1.0 / 0.6 - 0.9 cm LVPW Systolic Thickness 1.9 cm LVOT Diameter 2.0 cm LV Ejection Fraction 2D Teich 67.6 % LA Diameter 3.1 cm Aorta at Sinotubular Diameter 2.4 cm IVC Diameter 1.8 cm M-MODE Aortic Annulus Diameter 2.7 cm LA Ao Ratio MM 1.1 MV E Point Septal Separation 0.6 cm DOPPLER PV Peak Velocity 93.0 cm/s RV Acceleration Time 0.1 s RV Ejection Time 0.2 s RV AcT/ET 0.5 FINDINGS Left Ventricle Normal left ventricular size and systolic function, EF 68%. No regional wall motion abnormalities. Right Ventricle The right ventricle is normal in size and function. Right Atrium The right atrium is normal in size. Left Atrium The left atrium is normal in size. Mitral Valve No gross abnormalities noted Aortic Valve Minimally thickened aortic valve Tricuspid Valve No gross abnormalities noted Pulmonic Valve No gross abnormalities noted Pericardium Normal pericardium without effusion. Aorta Normal ascending aorta dimension. IVC Normal inferior vena cava. CONCLUSIONS Normal left ventricular size and systolic function, EF 68%. No regional wall motion abnormalities. Normal cardiac chamber sizes. No significant valvular lesions were noted. There is no pericardial effusion. Technically difficult study because of the poor ultrasonic window. Dr Gloria Lyles MD [facility] (Electronically Signed) Final Date: 23 January 2023 16:45 S
--- NOTE | 2023-01-23 07:51 | USCV_ITS ---
Erika Shen Age: 57 Gender: F : 1965 Exam Date: 01/23/2023 09:09 Ordering Phys: Julius Bazan MD Technologist: CT [place] [facility] [place] Indication: swelling PROCEDURES: Venous duplex imaging was performed in bilateral lower extremities. In addition, the posterior tibial and peroneal trunk were evaluated. Bilaterally, the common femoral, superficial femoral, profunda femoral, popliteal, posterior tibial, greater saphenous veins, and the peroneal trunk were identified and interrogated in the standard fashion. These veins were found to be easily compressible with spontaneous blood flow. No evidence of insufficiency or thrombus noted. FINDINGS: no dvt noted CONCLUSIONS No evidence of right lower extremity DVT. No evidence of left lower extremity DVT. Gucci Gonzalez MD (Electronically Signed) Final Date: 23 January 2023 09:57 S
[2023-01-23 08:06] LABS: Glucose Point of Care 341 mg/dL (70-110)
--- NOTE | 2023-01-23 08:08 | PC.NURSE ---
Rapid response: upon entering room this nurse found Dr. Dunn performing intubation with ER nurse assistance. ER nurse pushed sedation meds. Dr. Bazan at bedside upon arriving in ICU, orders given for propofol and fentanyl drips. Suprpubic cath site culture, flu/covid swabs
[2023-01-23 08:38] LABS: ABG PH Result 7.31 (7.35-7.45); Alveolar-Arterial Oxygen Gradi 54.2 mmHg (5-10); Arterial Blood Gas Hematocrit 32.3 % (37-47); Blood Gas Allen Test Pos; Blood Gas Operator Identificat MONRO; Blood Gas Sample Site Brachial, right; Blood Gas Sample Type Arterial; Carboxyhemoglobin 0.8 %THgb (0.4-20.1); HCO3 ABG 16.2 mmol/L (22-26); HGB O2 Sat 98.4 % (95-100); Ionized Calcium Level - ABG 1.2 mmol/L (1.1-1.4); Methemoglobin 0.8 % (0.4-1.5); Oxygen Device VENT; Potassium Level - ABG 4.4 mmol/L (3.5-5.0); Total Hemoglobin 10.5 g/dL (12-16)
[2023-01-23 08:39] LABS: Blood Gas Tidal Volume 0.45
[2023-01-23] MEDS: heparin 5,000 unit/mL INJ 1 mL 5000 UNIT SUBCUT (08:50)
[2023-01-23] MEDS: atorvastatin 40 mg Tablet PO (08:50)
[2023-01-23] MEDS: fluconazole premix 200 MG/100 ML PREMIX 100 MG IV (08:50)
[2023-01-23] MEDS: pantoprazole 40 mg SDV IVP ×2 (08:50→20:18)
[2023-01-23] MEDS: clopidogrel 75 mg Tablet PO (08:51)
[2023-01-23] MEDS: escitalopram 10 mg Tablet 20 MG PO (08:51)
[2023-01-23] MEDS: topiramate 100 mg Tablet PO (08:51)
[2023-01-23] MEDS: piperacillin-tazobactam 3.375 GM in sodium chloride 0.9% (plus) 50 ML IV ×2 (08:52→20:18)
[2023-01-23 08:58] LABS: D Dimer 2.21 ug/mIFEU (0-0.59)
[2023-01-23 09:05] LABS: Lactate (Lactic Acid level) 1.1 mmol/L (0.5-2.2)
[2023-01-23 09:09] LABS: Troponin(5th) Baseline 44 ng/L (0-10)
[2023-01-23 09:17] LABS: Creatine Phosphokinase 92 U/L (26-192); NT Pro B Type Natriuretic Pept 5385 pg/mL (0-125)
[2023-01-23] MEDS: vancomycin 1,500 MG/300 ML PIGGYBACK 200 MG IV (09:36)
[2023-01-23] MEDS: insulin lispro 100 unit/1 mL SUBCUT ×3 (09:52→20:20)
[2023-01-23] MEDS: etomidate 2 mg/mL INJ SDV 10 mL 110 MG IVP (09:54)
[2023-01-23] MEDS: succinylcholine 20 mg/mL SDV 10mL 110 MG IVP (09:54)
--- NOTE | 2023-01-23 09:54 | XR_ITS ---
WS: [id number] EXAMINATION: XR chest 1V portable [id number] REASON FOR EXAM: Post PICC placement COMPARISON: None available. ORDER DATE: 01/23/2023 9:54 AM TECHNIQUE: A single, portable frontal chest x-ray was obtained. X-RAY FINDINGS: There is bibasilar atelectasis.. Pleural spaces are clear. No pleural effusions or pneumothorax. Cardiomediastinal silhouette is normal. No evidence for pulmonary edema. Soft tissue and osseous structures are unremarkable. Endotracheal tube is in satisfactory position. An enteric tube needs to be advanced 5 to 6 cm with proximal sidehole remaining in the distal esophagus.. Right-sided PICC line placement terminating at the cavoatrial junction in satisfactory position. Impression Satisfactory PICC line position. Bibasilar atelectasis. Recommend advancement of the enteric tube as noted above.
[2023-01-23] MEDS: propofol 1,000 MG/100 ML INJ 36.51 MG IV (09:55)
[2023-01-23 09:59] LABS: Glucose Point of Care 313 mg/dL (70-110)
--- NOTE | 2023-01-23 10:48 | P.CONIM_ITS ---
Providers/Reason For Consult Consulting Physician/Specialty*: [facility] /Nephrology Reason for Consult*: EFREN Attending Physician: Julius Bazan MD Primary Care Provider: Vu Neil Jr, MD History of Present Illness History of Present Illness Patient is a 57-year-old female, patient bedbound half-way resident who has neurogenic bladder-suprapubic catheter who recently underwent bilateral ureteral stenting due to ureteral obstruction, patient also has a history of diabetes h ypertension, dyslipidemia, prior CVA and history of CKD. She has history of recurrent pyelonephritis. She was sent to the emergency department yesterday due to altered menta l status, nausea vomiting and abdominal pain.CT scan of abdomen that showed bilateral ureteral stents in good position with moderate renal pelvis dilation. UA consistent with possible acute pyelonephritis Overnight patient became tachypneic and developed respiratory failure was placed on BiPAP and was then intubated. Review of Systems Narrative: CANNOT OBTAIN Medications/Allergies Home Medications Medication Instructions Recorded Confirmed Last Taken Type escitalopram oxalate 20 mg tablet 20 mg PO DAILY@12/01/19 01/22/23 01/22/23 History solifenacin 5 mg tablet (Vesicare) 5 mg PO DAILY@12/01/19 01/22/23 01/22/23 History topiramate 100 mg tablet (Topamax) 100 mg PO DAILY@12/01/19 01/22/23 01/22/23 History cyclobenzaprine 10 mg tablet 10 mg PO Q8H PRN muscle spasms 10/12/20 01/22/23 12/22/20 History blood sugar diagnostic (Accu-Chek #10 ea 10/15/20 01/22/23 Unknown Rx Gaby Plus test strips) blood-glucose meter (Accu-Chek #1 ea 10/15/20 01/22/23 Unknown Rx Gaby Plus Meter) lancets (Accu-Chek Multiclix #100 ea 10/15/20 01/22/23 Unknown Rx Lancet) metoprolol succinate 200 mg 200 mg PO DAILY@12/17/20 01/22/23 01/22/23 History tablet,extended release 24 hr methenamine hippurate 1 gram 1 g PO BID@05/01/21 01/22/23 01/22/23 History tablet (Hiprex) bisacodyl 10 mg rectal suppository 10 mg NJ DAILY PRN Constipation 08/03/21 01/22/23 Unknown History insulin glargine 100 unit/mL (3 25 unit SUBCUT BEDTIME@08/03/21 01/22/23 01/21/23 History mL) subcutaneous pen (Lantus Solostar U-100 Insulin) hydrocodone 5 mg-acetaminophen 325 1 tab PO Q4H PRN Pain 11/20/21 01/22/23 12/17/22 History mg tablet amlodipine 10 mg tablet 10 mg PO DAILY@01/05/22 01/22/23 01/22/23 History clopidogrel 75 mg tablet 75 mg PO DAILY@01/05/22 01/22/23 01/22/23 History pravastatin 80 mg tablet 80 mg PO DAILY@08/09/22 01/22/23 01/22/23 History sodium phosphates 19 gram-7 118 ml NJ DAILY PRN Constipation 08/09/22 01/22/23 Unknown History gram/118 mL enema (Enema Disposable) hydroxyzine HCl 25 mg tablet 25 mg PO Q8H PRN Itching 09/19/22 01/22/23 Unknown History acetaminophen 650 mg rectal 650 mg NJ Q6H PRN pain/fever 12/11/22 01/22/23 Unknown History suppository sitagliptin phosphate 25 mg tablet 25 mg PO DAILY@12/11/22 01/22/23 01/22/23 History (Januvia) fluconazole 150 mg tablet 150 mg PO DAILY 01/22/23 01/22/23 01/22/23 History Allergies Allergy/AdvReac Type Severity Reaction Status Date / Time levofloxacin [From Levaquin] Allergy NA Verified 01/22/23 09:57 metronidazole [From Flagyl] Allergy NA Verified 01/22/23 09:57 miconazole Allergy NA Verified 01/22/23 09:57 Sulfa (Sulfonamide Allergy NA Verified 01/22/23 09:57 Antibiotics) sulfamethoxazole Allergy Unknown Verified 01/22/23 09:57 [From Bactrim] trimethoprim [From Bactrim] Allergy Unknown Verified 01/22/23 09:57 Current Medications Generic Name Dose Route Start Last Admin Trade Name Freq PRN Reason Stop Dose Admin Atorvastatin Calcium 40 mg 01/23/23 09:00 01/23/23 08:50 Atorvastatin 40 Mg Tablet PO 40 mg DAILY ED Administration Clopidogrel Bisulfate 75 mg 01/23/23 07:00 01/23/23 08:51 Clopidogrel 75 Mg Tablet PO 75 mg DAILY@07 ED Administration Escitalopram Oxalate 20 mg 01/23/23 09:00 01/23/23 08:51 Escitalopram 10 Mg Tablet PO 20 mg DAILY ED Administration Heparin Sodium (Porcine) 5,000 unit 01/22/23 20:07 01/23/23 08:50 Heparin 5,000 Unit/Ml Inj 1 Ml SUBCUT 5,000 unit Q12H ED Administration Propofol 1,000 mg in 100 mls @ 0 mls/hr 01/23/23 07:15 01/23/23 09:55 Diprivan IV 60 mcg/kg/min .Q0M ED 36.51 mls/hr Administration Protocol Per Protocol Vancomycin/PEG/NADA/Lysine/Water 1,500 mg in 300 mls @ 200 mls/hr 01/23/23 08:30 01/23/23 09:36 Vancocin IV 200 mls/hr Q48H ED Administration Piperacillin Sod/Tazobactam 50 mls @ 12.5 mls/hr 01/23/23 08:00 01/23/23 08:52 Sod 3.375 gm/ Sodium Chloride IV 12.5 mls/hr Q12H ED Administration Protocol As Directed Fluconazole 200 mg in 100 mls @ 100 mls/hr 01/23/23 08:30 01/23/23 08:50 Diflucan Premix IV 100 mls/hr Q24H ED Administration Insulin Glargine 10 unit 01/22/23 21:00 01/22/23 21:10 Insulin Glargine 100 Units/1 Ml SUBCUT 10 unit BEDTIME ED Administration Insulin Human Lispro 0 unit 01/22/23 21:00 01/22/23 21:07 Insulin Lispro 100 Unit/1 Ml SUBCUT 6 unit BEDTIME ED Administration Protocol Insulin Human Lispro 0 unit 01/22/23 20:07 01/23/23 09:52 Insulin Lispro 100 Unit/1 Ml SUBCUT 12 unit TIDWM ED Administration Protocol Pantoprazole Sodium 40 mg 01/23/23 08:00 01/23/23 08:50 Pantoprazole 40 Mg Sdv IVP 40 mg Q12H ED Administration Topiramate 100 mg 01/23/23 07:00 01/23/23 08:51 Topiramate 100 Mg Tablet PO 100 mg DAILY@07 ED Administration PFSH Acute PFSH: Medical History Bilateral renal stones Partial staghorn Chronic migraine without aura, intractable, with status migrainosus CKD (chronic kidney disease) CVA (cerebral vascular accident) Initial CVA 2011, has has multiple ischemic multiple vascular territory strokes, including vertebrobasilar artery thalamic stroke, left pontine stroke; left hemiparesis, difficulty communicating in conversation, short term more than detention memory loss Depression Diabetes mellitus, type II a1c 10/2020 12.7 Dyslipidemia History of seizure on topamax Hypertension hypertensive emergency 10/2020 Macular degeneration Neurogenic bladder suprapubic catheter Obesity Recurrent obstructive pyelonephritis Recurrent UTI Requires assistance with activities of daily living (ADL) Surgical History (Updated 01/22/23 @ 13:37 by Andie Ac MD) H/O detached retina repair H/O oral surgery History of suprapubic catheter S/P appendectomy S/P cataract surgery S/P cholecystectomy S/P knee surgery S/P shoulder surgery Status post cystoscopy with ureteral stent placement 01/14/2023, bilateral stents placed by Dr Gama Family History Father Cancer Lymphoma Mother CAD (coronary artery disease) Diabetes Chronic kidney disease (CKD) Social History Smoking and tobacco status: former smoker Alcohol intake: never Caregiver/support person: No Lives independently: No Marital status: Marital status details: 12/17/20 Current occupational status: disabled Vitals/I&O/Wt Last Vital Signs Temp 102.7 F H 01/23/23 04:00 Pulse 78 01/23/23 10:00 Resp 16 01/23/23 07:59 BP 105/59 01/23/23 10:00 Pulse Ox 98 01/23/23 10:00 O2 Del Method 01/23/23 04:00 O2 Flow Rate 2 01/23/23 04:00 FiO2 35 01/23/23 07:59 01/22/23 01/23/23 01/23/23 22:59 06:59 14:59 Intake Total 1050 / 1050 Output Total 1050 / 1050 Balance 1050 / 1050 -1050 / 0 Weight last 48 hrs Weight 101.406 kg Weight 106.594 kg Physical Exam Narrative: intubated , sedated Urinary Catheter Management: Suprapubic: Cath Placed During This Visit: no Reason for Continuing Indwelling Catheter: Other Data 01/23/23 04:48 01/23/23 04:48 Micro: Microbiology 01/23/23 10:22 Blood Culture - Preliminary Blood SPECIMEN COLLECTED 01/22/23 09:55 Blood Culture - Preliminary Blood NEGATIVE TO DATE 01/22/23 09:53 Blood Culture - Preliminary Blood NEGATIVE TO DATE 01/22/23 09:43 Urine Culture - Preliminary Urine,Clean Catch Gram Negative Rods A&P Assessment and plan (1) CKD (chronic kidney disease): Plan 1. Acute on chronic kidney disease stage III: Patient's baseline creatinine is in the 2 range now presented with a creatinine of 3.4. EFREN likely from ATN from sepsis/hypotension. -We will start patient on sodium bicarbonate drip, continue to monitor for now. Patient likely will need dialysis support in the next 24 to 48 hours if no improvement in renal function and continues to have volume overload. -Avoid IV contrast studies and nephrotoxins 2. Metabolic acidosis: Bicarb is 30, will start on bicarb drip 3. Hyponatremia: Mild, monitor 4. Acute respiratory failure: Intubated and sedated 5. Acute pyelonephritis, patient with history of recurrent pyelonephritis: On antibiotics per primary team 6. History of ureteral stents, neurogenic bladder with suprapubic catheter Coding Level of Care Code Acute Code for [facility] Fwd Diagnoses CKD (chronic kidney disease) N18.9
--- NOTE | 2023-01-23 10:54 | PC.CHAP ---
Pastoral Care Encounter/Spiritual Assessment Type of Contact [] Declined picker box operator visit [] Patient/Family/Request visit [] Outpatient visit [] Follow-up visit [] Physician referral [] Code/Alert [x] Routine visit [] Staff referral [] Actively dying [x] Patient sleeping [] Family support [] [] Out of room [] Palliative care [] [] Receiving care in room [] Pre-surgical visit [] Trauma [] Long length of stay [x] ICU visit [] Other: Relational/Emotional Strength [] Patient feels connected with others/family/visitors/staff [] Distress [] Loneliness/isolation [] Abandonment Spirituality of Patient [] Person of Micki [] Attends Sabianism of their Micki [] Believes in Prayer [] Reads Bible or Cheondoism materials [] There are Spiritual issues to be addressed Voting Machine Mechanic Interventions [x] Prayer [] Active listening [] Non-anxious presence [] Spiritual/emotional support [] Crisis/trauma care [] Spiritual counseling [] Bereavement support [] Provided bereavement packet [] Provided Bible/devotional materials [] Provided toy/stuffed animal, coloring book to patient or family member [] Provided Communion [] Anointing/[place] [] Salvation [x] Completed spiritual assessment [] Other: Impact on Illness or Injury [] Angry [] Fearful [] Anxious [] Often cries [] Exhaustion [] Unable to work [] Unable to attend evangelical [] Unable to walk/stand [] Unable to read [] Unable to drive [] Unable to eat/drink [] Unable to sleep [] Unable to be with family [] Patient intubated [] Other: Summary Time spent with patient
[2023-01-23 10:56] LABS: Troponin 5 2HR 45.74 ng/L (0-10)
[2023-01-23 10:57] LABS: Troponin 5 2HR Delta 1.74 ABS# (0-10)
--- NOTE | 2023-01-23 11:02 | PC.NURSE ---
Triple lumen 6 Estonian PICC placed to right basilic vein without difficulty. Mid-arm circumference measured 10 cm from right AC and noted at 29 cm. Trimmed length of PICC 46 cm with no external length noted. Dressing to PICC due to be changed tomorrow, 01/24/23. Report given to pt care nurseYannick.
[2023-01-23] MEDS: propofol 1,000 MG/100 ML INJ 42.59 MG IV (11:15)
[2023-01-23 11:40] LABS: Glucose Point of Care 254 mg/dL (70-110)
--- NOTE | 2023-01-23 11:50 | P.PN_ITS ---
Subjective Subjective: - Patient was seen and morning -Overnight patient had high fevers, becoming tachypneic, there is concern for respiratory failure, he was placed on BiPAP, however she became encephalopathic, concerns for maintaining airway issues she was emergently intubated, moved to the ICU, antibiotic therapy was broadened -Intubated, sedated on mechanical ventilation -He is febrile -MAP greater than 75, not on pressors -Was originally on 100%, turned out to 30% FiO2 -Urine output remains lackluster -Spoke to nephrology about consult, given patient's EFREN -Spoke to Dr. Gama about CT and ultrasound findings of left hydronephrosis, and evidence of sepsis - Vitals/I&O/Wt Last Vital Signs Temp 102.7 F H 01/23/23 04:00 Pulse 78 01/23/23 10:00 Resp 22 H 01/23/23 11:12 BP 105/59 01/23/23 10:00 Pulse Ox 100 01/23/23 11:12 O2 Del Method 01/23/23 04:00 O2 Flow Rate 2 01/23/23 04:00 FiO2 30 01/23/23 11:12 01/22/23 01/23/23 01/23/23 22:59 06:59 14:59 Intake Total 1050 / 1050 48.68 / 48.68 Output Total 1050 / 1050 Balance 1050 / 1050 -1050 / 0 48.68 / 48.68 Weight last 48 hrs Weight 101.406 kg Weight 106.594 kg Physical Exam Narrative: Intubated, sedated on mechanical ventilation, pupils dilated, reactive to light Endotracheal tube in place Orogastric tube in place Suprapubic catheter in place Const: COMMON NORMALS: no acute distress Resp: COMMON NORMALS: normal respiratory effort, No retractions, No use of accessory muscles and clear to auscultation bilaterally AUSCULTATION: clear to auscultation bilaterally Cardio: COMMON NORMALS: regular rate, regular rhythm, S1 normal heart sound present and S2 normal heart sound present RATE: regular rate RHYTHM: regular rhythm HEART SOUNDS: S1 normal heart sound present and S2 normal heart sound present GI: COMMON NORMALS: Normal to inspection, nondistended, normoactive bowel sounds present and non-tender OTHER: Obese abdomen : OTHER: Has a suprapubic catheter placed with some drainage around Extremity: NARRATIVE EXTREMITY EXAM: Nonpitting edema Urinary Catheter Management: Suprapubic: Cath Placed During This Visit: no Reason for Continuing Indwelling Catheter: Other Data 01/23/23 04:48 01/23/23 04:48 Micro: Microbiology 01/23/23 10:43 Blood Culture - Preliminary Blood SPECIMEN COLLECTED 01/23/23 10:22 Blood Culture - Preliminary Blood SPECIMEN COLLECTED 01/22/23 09:55 Blood Culture - Preliminary Blood NEGATIVE TO DATE 01/22/23 09:53 Blood Culture - Preliminary Blood NEGATIVE TO DATE 01/22/23 09:43 Urine Culture - Preliminary Urine,Clean Catch Gram Negative Rods A&P Assessment and plan (1) Sepsis: (2) Acute encephalopathy: (3) Acute respiratory failure with hypoxia: (4) Hydronephrosis, left: (5) NSTEMI (non-ST elevated myocardial infarction): (6) Metabolic acidosis: (7) Neurogenic bladder: (8) Diabetes mellitus, type II: (9) Dyslipidemia: (10) Acute kidney injury: (11) Acute pyelonephritis: (12) BMI 37.0-37.9, adult: (13) Suprapubic catheter: (14) Status post cystoscopy with ureteral stent placement: (15) CVA (cerebral vascular accident): (16) Deep tissue injury: Plan Acute hypoxic respiratory failure -Possibly secondary to aspiration? -Possibly secondary to pulmonary embolism? -Possibly secondary to pulmonary edema Plan -Currently intubated, sedated on mechanical ventilation -Minimize FiO2, minimize tidal volume -Daily spontaneous breathing trials as requested -Propofol, and fentanyl for sedation -Levophed to maintain MAP greater than 65 -Currently on broad-spectrum antibiotic therapy vancomycin, Zosyn -Fluconazole added for antifungal coverage -Follow repeat blood cultures, sputum cultures, urine cultures -Venous ultrasound negative for DVT, D-dimer elevated, she is at high risk of pulmonary embolism, given her sudden nature of acute respiratory failure we will place her on heparin drip for possible pulmonary embolism, cannot do a CT angiogram of her chest given her acute renal failure -Concerns for fluid overload, however clinically she does not have pitting edema, no crackles on exam BNP is elevated, chest x-ray shows mild pulm vascular congestion, hold off on diuretics -Full code -Heparin drip for DVT prophylaxis Possible aspiration, monitor chest x-rays, as above Possible pulmonary embolism, as above Acute encephalopathy, intubated, sedated, -Monitor mentation off sedation Acute pyelonephritis -On broad-spectrum antibiotic therapy vancomycin, Zosyn -Fluconazole added for antifungal coverage -Monitor urine cultures, monitor blood cultures -Tylenol for fevers -Monitor creatinine, monitor urine output Acute renal failure on chronic kidney disease -Likely multifactorial -From sepsis -From pyelonephritis -Renal ultrasound does show left hydronephrosis -CT abdomen pelvis shows ?Bilateral ureteral stents in good position with bilateral moderate renal pelvic dilatation. -Spoke to Dr. Gama, he will monitor, given elevated EFREN, if worsening renal function and persistent fevers and sepsis, he will consider change out of her ureteral stents -Nephrology has been consulted -Currently on IV fluids -Avoid nephrotoxic agents -Monitor creatinine, monitor urine output Sepsis, secondary to acute pyelonephritis Persistent fevers, as above Status post cystoscopy with ureteral stent placement -Had bilateral ureteral stents placed January 14, [address] Gama Suprapubic catheter in place -We will obtain culture, on examination has some purulent drainage around suprapubic catheter Hypertension, hold blood pressure medication Hyperglycemia with type 2 diabetes mellitus -Lantus 10 units every 12 hours -Monitor sliding scale History of CVA -History of multiple CVAs -With left hemiparesis, requires assistance with most ADLs -Can feed herself of the right hand -Chronically on Plavix History of seizures, continue Topamax Sacral decubitus ulcer stage I present on admission, Obesity Attestations Medical Necessity Statement*: Patient requires hospitalization, inpatient, greater than 2 minutes, for acute hypoxic respiratory failure, sepsis, persistent fevers, left hydronephrosis, pyelonephritis, concerns for pulmonary embolism, concerns for aspiration Coding Level of Care Code Critical Care >/= 30 minutes Critical care time (in minutes): 60 The high probability of a clinically significant, sudden or life threatening deterioration, as referenced in this documentation, required my full and direct attention, intervention and personal management. The critical care time shown is in addition to time spent performing any reported separately billable procedures and includes the following: [x] Data and vital sign review and interpretation [x ] Patient assessment, examination and intervention [x] Medication orders and management [x] Patient/Family updates as able [x] Care Coordination and Documentation. Diagnoses Sepsis A41.9 Acute encephalopathy G93.40 Acute respiratory failure with hypoxia J96.01 Hydronephrosis, left N13.30 NSTEMI (non-ST elevated myocardial infarction) I21.4 Metabolic acidosis E87.20 Neurogenic bladder N31.9 Diabetes mellitus, type II E11.9 Dyslipidemia E78.5 Acute kidney injury N17.9 Acute pyelonephritis N10 BMI 37.0-37.9, adult Z68.37 Suprapubic catheter Z93.59 Status post cystoscopy with ureteral stent placement Z96.0 CVA (cerebral vascular accident) I63.9 Deep tissue injury T14.8XXA
[2023-01-23] MEDS: insulin glargine 100 units/1 mL 10 UNIT SUBCUT ×2 (12:54→23:01)
[2023-01-23 14:49] LABS: Troponin 5 6HR 50.27 ng/L (0-10)
[2023-01-23 14:50] LABS: Creatine Phosphokinase 113 U/L (26-192); Troponin 5 6HR Delta 6.27 ng/L (0-12)
[2023-01-23 15:38] LABS: Sodium 145 mmol/L (136-145)
[2023-01-23 15:39] LABS: Blood Urea Nitrogen 61 mg/dL (6-20); Carbon Dioxide 16 mmol/L (22-29); Chloride 113 mmol/L (98-107)
[2023-01-23 15:40] LABS: Calcium 8.2 mg/dL (8.5-10.5); Glomerular Filtration Rate 12.6 mL/min (90-130); Glucose 127 mg/dL (65-115); Osmolality Calculated 319 mOsm/kg (285-295)
[2023-01-23 17:10] LABS: Glucose Point of Care 132 mg/dL (70-110)
[2023-01-23] MEDS: heparin drip 25,000 UNIT/500 ML PREMIX 29 UNIT IV (18:06)
[2023-01-23] MEDS: heparin 5,000 unit/mL INJ 1 mL IV (18:06)
[2023-01-23 20:13] LABS: Glucose Point of Care 221 mg/dL (70-110)
[2023-01-23] MEDS: propofol 1,000 MG/100 ML INJ 24.34 MG IV (20:17)
[2023-01-23] MEDS: acetaminophen 650 mg Supp PR (20:18)
[2023-01-23] MEDS: sodium chloride 0.9% 1,000 ML 75 ML IV (21:13)
[2023-01-24] VITALS (55 sets, daily range): BP systolic 89–157; BP diastolic 48–84; PULSE 71–98; RESP 17–28; TEMP 36.4–37.6; O2SAT 89–99
[2023-01-24] MEDS: propofol 1,000 MG/100 ML INJ 24.34 MG IV ×5 (00:06→23:39)
[2023-01-24 00:45] LABS: Adenovirus Not Detected (NOT DETECT); Chlamydia Pneumoniae Not Detected (NOT DETECT); Coronavirus 229E,HKU1,NL63,OC4 Not Detected (NOT DETECT); Human Metapneumovirus Not Detected (NOT DETECT); Human Rhinovirus/Enterovirus Not Detected (NOT DETECT); Influenza A Not Detected (NOT DETECT); Influenza A H1 Not Detected (NOT DETECT); Influenza A H1-2009 Not Detected (NOT DETECT); Influenza A H3 Not Detected (NOT DETECT); Influenza B Not Detected (NOT DETECT); Mycoplasma Pneumoniae Not Detected (NOT DETECT); Parainfluenza Virus Type 1 Not Detected (NOT DETECT); Parainfluenza Virus Type 2 Not Detected (NOT DETECT); Parainfluenza Virus Type 3 Not Detected (NOT DETECT); Parainfluenza Virus Type 4 Not Detected (NOT DETECT); Respiratory Syncytial Virus A Not Detected (NOT DETECT); Respiratory Syncytial Virus B Not Detected (NOT DETECT); SARS-COV-2 Not Detected (NOT DETECT)
[2023-01-24 01:14] LABS: Basophils # 0.1 10^3/uL (0.0-0.1); Basophils % 0.5 %; Eosinophils % 0.1 %; Hematocrit 30.1 % (37.0-47.0); Hemoglobin 9.2 g/dL (11.5-15.3); Lymphocytes # 1.7 10^3/uL (0.8-4.8); Lymphocytes % 14.8 %; Mean Corpuscular HGB Conc 30.6 g/dL (30.0-36.0); Mean Corpuscular Hemoglobin 26.9 pg (28.0-34.0); Mean Platelet Volume 9.8 fL (7.4-10.4); Monocytes % 8.2 %; Neutrophils % 75.7 %; Nucleated Red Blood Cells % 0 %; Platelet Count 284 10^3/cmm (130-400); Red Blood Count 3.42 10^6/uL (4.1-5.3); Red Cell Distribution Width 14.1 % (12.1-15.1); White Blood Count 11.8 10^3/uL (4.0-10.0)
[2023-01-24 01:29] LABS: INR 1.22 (0.8-1.2); Partial Thromboplastin Time 56.1 SECONDS (23.9-36.7)
[2023-01-24 01:41] LABS: Alanine Aminotransferase < 5 U/L (0-33); Albumin Level 2.8 g/dL (3.5-5.2); Alkaline Phosphatase 67 U/L (35-105); Anion Gap 20.9 (5-19); Aspartate Amino Transferase 7 U/L (0-32); Blood Urea Nitrogen 63 mg/dL (6-20); C Reactive Protein 274.7 mg/L (0.0-4.9); Calcium 7.9 mg/dL (8.5-10.5); Carbon Dioxide 15 mmol/L (22-29); Chloride 114 mmol/L (98-107); Globulin 3.7 g/dL (1.3-4.6); Glomerular Filtration Rate 11.2 mL/min (90-130); Glucose 152 mg/dL (65-115); Osmolality Calculated 323 mOsm/kg (285-295); Phosphorus 4.8 mg/dL (2.5-4.5); Potassium 3.9 mmol/L (3.5-5.1); Sodium 146 mmol/L (136-145); Total Bilirubin 0.2 mg/dL (0.15-1.2); Total Protein 6.5 g/dL (6.6-8.7)
[2023-01-24 01:47] LABS: NT Pro B Type Natriuretic Pept 5990 pg/mL (0-125); Procalcitonin 13.65 ng/mL (0-0.5)
[2023-01-24 01:58] LABS: Creatine Phosphokinase 157 U/L (26-192)
[2023-01-24 05:08] LABS: Blood Gas Sample Site Brachial, right; Blood Gas Sample Type Arterial
[2023-01-24 05:32] LABS: Blood Gas Operator Identificat JB; Oxygen Device VENT
[2023-01-24 06:01] LABS: ABG PH Result 7.25 (7.35-7.45); Arterial Blood Gas Hematocrit 35.7 % (37-47); Base Excess ABG -11.6 mmol/L (-2.0-2.0); HCO3 ABG 14.6 mmol/L (22-26); PO2 ABG 69.9 mmHg (80.0-100.0)
[2023-01-24] MEDS: topiramate 100 mg Tablet PO (06:17)
[2023-01-24] MEDS: clopidogrel 75 mg Tablet PO (06:17)
[2023-01-24 07:00] LABS: Partial Thromboplastin Time 35.9 SECONDS (23.9-36.7)
--- NOTE | 2023-01-24 07:00 | XR_ITS ---
WS: [id number] EXAMINATION: XR chest 1V portable [id number] REASON FOR EXAM: sob COMPARISON: None available. ORDER DATE: 01/24/2023 7:05 AM TECHNIQUE: A single, portable frontal chest x-ray was obtained. X-RAY FINDINGS: There is decreasing left basal atelectasis.. Pleural spaces are clear. No pleural effusions or pneumo thorax. Cardiomediastinal silhouette is normal. No evidence for pulmonary edema. Soft tissue and osseous structures are unremarkable. Endotracheal tube is in satisfactory position. An enteric tube needs to be advanced 5 to 6 cm with proximal sidehole remaining in the distal esophagus.. Right-sided PICC line placement terminating at the cavoatrial junction in satisfactory position. Impression Satisfactory PICC line position. Decreasing left basal atelectasis. Recommend advancement of the enteric tube as noted above.
[2023-01-24 07:44] LABS: Glucose Point of Care 198 mg/dL (70-110)
[2023-01-24] MEDS: propofol 1,000 MG/100 ML INJ 30.42 MG IV ×2 (08:30→11:48)
[2023-01-24] MEDS: fluconazole premix 200 MG/100 ML PREMIX 100 MG IV (08:51)
[2023-01-24] MEDS: sodium bicarbonate 150 MEQ in dextrose 5% 1,000 ML 100 MEQ IV (08:51)
[2023-01-24] MEDS: piperacillin-tazobactam 3.375 GM in sodium chloride 0.9% (plus) 50 ML IV ×2 (08:52→20:58)
[2023-01-24] MEDS: pantoprazole 40 mg SDV IVP ×2 (08:52→20:58)
[2023-01-24] MEDS: insulin lispro 100 unit/1 mL SUBCUT ×3 (08:52→17:35)
[2023-01-24] MEDS: escitalopram 10 mg Tablet 20 MG PO (08:53)
[2023-01-24] MEDS: atorvastatin 40 mg Tablet PO (08:53)
--- NOTE | 2023-01-24 09:09 | PM.PN ---
Subjective Subjective: Patient on 30% FiO2, off pressors, urine output marginal l Medications: Reviewed: Yes Vitals/I&O/Wt Last Vital Signs Temp 97.5 F L 01/24/23 04:00 Pulse 85 01/24/23 06:00 Resp 24 H 01/24/23 08:15 BP 123/74 01/24/23 04:00 Pulse Ox 97 01/24/23 08:15 O2 Del Method 01/23/23 04:00 O2 Flow Rate 2 01/23/23 04:00 FiO2 30 01/24/23 08:15 01/23/23 01/24/23 01/24/23 22:59 06:59 14:59 Intake Total 450 / 598.68 242.898 / 841.578 Balance 450 / 598.68 242.898 / 841.578 Weight last 48 hrs Weight 101.406 kg Weight 106.594 kg Physical Exam Narrative: intubated , sedated Urinary Catheter Management: Suprapubic: Cath Placed During This Visit: no Reason for Continuing Indwelling Catheter: Accurate Measurement of Urinary Output in Critically Ill Patients Data 01/24/23 00:38 01/24/23 00:38 Micro: Microbiology 01/23/23 10:43 Blood Culture - Preliminary Blood SPECIMEN COLLECTED 01/23/23 10:22 Blood Culture - Preliminary Blood SPECIMEN COLLECTED 01/22/23 09:55 Blood Culture - Preliminary Blood NEGATIVE TO DATE 01/22/23 09:53 Blood Culture - Preliminary Blood NEGATIVE TO DATE 01/22/23 09:43 Urine Culture - Preliminary Urine,Clean Catch Gram Negative Rods A&P Assessment and plan (1) CKD (chronic kidney disease): Plan 1. Acute on chronic kidney disease stage III: Patient's baseline creatinine is in the 2 range now with a creatinine of 4.1. . EFREN likely from ATN from sepsis/hypotension. -Due to volume overload and metabolic acidosis , and oliguria- recommend hemodialysis initiation. Plan for HD catheter placement today and start HD -Avoid IV contrast studies and nephrotoxins 2. Metabolic acidosis: Bicarb is 14, on on bicarb drip 3. Hyponatremia: Mild, monitor 4. Acute respiratory failure: Intubated and sedated 5. Acute pyelonephritis, patient with history of recurrent pyelonephritis: On antibiotics per primary team 6. History of ureteral stents, neurogenic bladder with suprapubic catheter Attestations Medical Necessity Statement*: Patient requires hospitalization, inpatient, greater than 2 minutes, for acute hypoxic respiratory failure, sepsis, persistent fevers, left hydronephrosis, pyelonephritis, concerns for pulmonary embolism, concerns for aspiration Coding Level of Care Code Acute Code for Chg Fwd Diagnoses CKD (chronic kidney disease) N18.9
[2023-01-24 11:26] LABS: Glucose Point of Care 177 mg/dL (70-110)
[2023-01-24 12:45] LABS: Hepatitis B Core AB, Total Non-Reactive (Nonreactive); Hepatitis B Surface AB 3.5 (11.5-1000); Hepatitis B Surface Antigen Non-Reactive (Nonreactive); Hepatitis C Virus Antibody Non-Reactive (Nonreactive)
--- NOTE | 2023-01-24 13:46 | P.PCN_ITS ---
Procedure/Consent Time out: Time Out Performed: Yes Consent: Consent for Procedure: Consent obtained from other (indicate) Procedure Narrative: Procedure:Ultrasound guided? Nontunneled hemodialysis catheter - CPT CODE 14329 + CPT code 44700 Indication: Worsening renal failure requiring hemodialysis Time of the Procedure: 1300 [employer] Mechan[employer] Helper(s): Stevie Chr [facility] Consent: Obtained from [facility] and placed in chart Site: Right internal jugular Anesthesia: 5 cc 1% lidocaine without epinephrine Description: After doing timeout with patient's RN at bedside, the area of interest is prepped with chlorhexidine and draped in a sterile manner.? 1% lidocaine given for local anesthesia. Under ultrasound guidance? identified patent right internal jugular vein, confirmed with compressibility and location on the medial side of noncompressible and pulsatile right carotid artery.? An introducer needle was used with concurrent real-time ultrasound visualization of vascular needle entry. After desired vessel puncture, a guidewire is advanced through the needle, the needle is withdrawn.? Using guidewire as the guide, achieved adequate dilation using 2 sequential dilators followed by insertion of 12 [place] 16 cm hemodialysis catheter over guidewire into the desired vessel using Seldinger technique.? The guidewire is removed and all ports johnson blood and were flushed with normal saline.? Caps were placed on the port, catheter was sutured in place, Biopatch applied at the catheter entry and dressed with sterile dressing. Ultrasound guidance used: Yes Placement confirmed by: Ultrasound Acute Procedures Epistaxis Control: Time out performed: Yes
--- NOTE | 2023-01-24 13:46 | PM.CONSULT ---
Providers/Reason For Consult Consulting Physician/Specialty*: Stevie Dang MD/Pulmonary Critical Care Reason for Consult*: Insertion of hemodialysis catheter in a patient with acute kidney injury requiring hemodialysis Requesting Physician: Julius Bazan MD Attending Physician: Julius Bazan MD Primary Care Provider: Vu Neil Jr, MD History of Present Illness History of Present Illness Erika Shen is a 57 year old female, skilled nursing resident, initially presented to emergency room on 01/22/2023 for altered mental status, lethargy, nausea, vomiting, abdominal pain. Patient has complicated urological history with neurogenic bladder, stones, suprapubic catheter and recurrent obstructive pyelonephritis. She underwent urological procedure with Dr. Gama on January 14, 2023, had cystoscopy with left ureteroscopy and left-sided laser lithotripsy with left ureteral stent placement along with removal of prior right ureteral stent followed by introduction of new stent and changing of suprapubic catheter. In the ER she is found to have leukocytosis with left shift, urine analysis consistent with recurrent infection and evidence of dehydration with EFREN. She was started on Rocephin and IV fluids. Previous cultures showed Proteus resistant to ciprofloxacin, nitrofurantoin and tetracycline. After admission patient continued to spike fevers, became tachypneic, saturation in 90s on 2 L, chest x-ray showed congestive changes-IV fluids were held, Lasix was given and as patient went into respiratory failure-she was placed on BiPAP-however patient became more lethargic and was eventually intubated. There was a concern if patient has aspiration pneumonia-her antibiotics were broadened to Zosyn and vancomycin. Echocardiogram 01/23/2023 reported normal LV size and systolic function with ejection fraction 68%. Meanwhile patient developed acute on chronic kidney disease stage III-her baseline creatinine 2 but presented with 3.4. EFREN likely secondary from ATN from sepsis/hypotension-nephrology consulted and patient was started on sodium bicarbonate drip and recommended hemodialysis Pulmonary critical care consulted for placement of hemodialysis and management of acute hypoxic respiratory failure secondary to sepsis from recurrent UTI/possible aspiration pneumonia I have seen patient at bedside today- -She is intubated and sedated with propofol 40 mcg/hour-resting comfortably -Her current ventilator settings are CMV 400/14/PEEP of 8/FiO2 30%-saturating 95% on monitor -She was on heparin drip for presumed PE-which was stopped 4 hours prior to placement of hemodialysis catheter. -after placing hemodialysis catheter-patient underwent CT angiogram which did not show any PE and hence heparin drip was not resumed. - She received hemodialysis for 2.5 hours and catheter got clogged and a big clot was removed. 2 L fluid was removed and dialysis was terminated. Plan is to continue hemodialysis tomorrow morning after instilling heparin in [facility]. - Her FiO2 requirement went up to 50% post hemodialysis -ABG showed 7.3 //21/92% -increase PEEP to 12; There was evidence of bilateral lower lobe atelectasis and suspicious for pneumonia and left lower lobe -Patient is already on vancomycin and Zosyn -Urine cultures grew Proteus resistant to ciprofloxacin, nitrofurantoin, tetracycline-as previously-it is sensitive to Zosyn Review of Systems General: Reports: ROS unobtainable due to endotracheal tube, ROS unobtainable due to medical condition and ROS unobtainable due to mental status Medications/Allergies Home Medications Medication Instructions Recorded Confirmed Last Taken Type escitalopram oxalate 20 mg tablet 20 mg PO DAILY@12/01/19 01/22/23 01/22/23 History solifenacin 5 mg tablet (Vesicare) 5 mg PO DAILY@12/01/19 01/22/23 01/22/23 History topiramate 100 mg tablet (Topamax) 100 mg PO DAILY@12/01/19 01/22/23 01/22/23 History cyclobenzaprine 10 mg tablet 10 mg PO Q8H PRN muscle spasms 10/12/20 01/22/23 12/22/20 History blood sugar diagnostic (Accu-Chek #10 ea 10/15/20 01/22/23 Unknown Rx Gaby Plus test strips) blood-glucose meter (Accu-Chek #1 ea 10/15/20 01/22/23 Unknown Rx Gaby Plus Meter) lancets (Accu-Chek Multiclix #100 ea 10/15/20 01/22/23 Unknown Rx Lancet) metoprolol succinate 200 mg 200 mg PO DAILY@12/17/20 01/22/23 01/22/23 History tablet,extended release 24 hr methenamine hippurate 1 gram 1 g PO BID@07,19 05/01/21 01/22/23 01/22/23 History tablet (Hiprex) bisacodyl 10 mg rectal suppository 10 mg HI DAILY PRN Constipation 08/03/21 01/22/23 Unknown History insulin glargine 100 unit/mL (3 25 unit SUBCUT BEDTIME@08/03/21 01/22/23 01/21/23 History mL) subcutaneous pen (Lantus Solostar U-100 Insulin) hydrocodone 5 mg-acetaminophen 325 1 tab PO Q4H PRN Pain 11/20/21 01/22/23 12/17/22 History mg tablet amlodipine 10 mg tablet 10 mg PO DAILY@01/05/22 01/22/23 01/22/23 History clopidogrel 75 mg tablet 75 mg PO DAILY@01/05/22 01/22/23 01/22/23 History pravastatin 80 mg tablet 80 mg PO DAILY@08/09/22 01/22/23 01/22/23 History sodium phosphates 19 gram-7 118 ml HI DAILY PRN Constipation 08/09/22 01/22/23 Unknown History gram/118 mL enema (Enema Disposable) hydroxyzine HCl 25 mg tablet 25 mg PO Q8H PRN Itching 09/19/22 01/22/23 Unknown History acetaminophen 650 mg rectal 650 mg HI Q6H PRN pain/fever 12/11/22 01/22/23 Unknown History suppository sitagliptin phosphate 25 mg tablet 25 mg PO DAILY@12/11/22 01/22/23 01/22/23 History (Januvia) fluconazole 150 mg tablet 150 mg PO DAILY 01/22/23 01/22/23 01/22/23 History Allergies Allergy/AdvReac Type Severity Reaction Status Date / Time levofloxacin [From Levaquin] Allergy NA Verified 01/22/23 09:57 metronidazole [From Flagyl] Allergy NA Verified 01/22/23 09:57 miconazole Allergy NA Verified 01/22/23 09:57 Sulfa (Sulfonamide Allergy NA Verified 01/22/23 09:57 Antibiotics) sulfamethoxazole Allergy Unknown Verified 01/22/23 09:57 [From Bactrim] trimethoprim [From Bactrim] Allergy Unknown Verified 01/22/23 09:57 Current Medications Generic Name Dose Route Start Last Admin Trade Name Freq PRN Reason Stop Dose Admin Acetaminophen 650 mg 01/22/23 20:07 01/23/23 20:18 Acetaminophen 650 Mg Supp HI 650 mg Q6H PRN Administration mild pain/temp >/= 101 if npo Atorvastatin Calcium 40 mg 01/23/23 09:00 01/24/23 08:53 Atorvastatin 40 Mg Tablet PO 40 mg DAILY ED Administration Clopidogrel Bisulfate 75 mg 01/23/23 07:00 01/24/23 06:17 Clopidogrel 75 Mg Tablet PO 75 mg DAILY@07 ED Administration Escitalopram Oxalate 20 mg 01/23/23 09:00 01/24/23 08:53 Escitalopram 10 Mg Tablet PO 20 mg DAILY ED Administration Heparin Sodium (Porcine) 0 unit 01/23/23 11:20 01/23/23 18:06 Heparin 5,000 Unit/Ml Inj 1 Ml IV 5,000 unit PRN PRN Administration Heparin weight-base protocol Protocol Propofol 1,000 mg in 100 mls @ 0 mls/hr 01/23/23 07:15 01/24/23 04:16 Diprivan IV 40 mcg/kg/min .Q0M ED 24.34 mls/hr Administration Protocol Per Protocol Vancomycin/PEG/NADA/Lysine/Water 1,500 mg in 300 mls @ 200 mls/hr 01/23/23 08:30 01/23/23 19:38 Vancocin IV Infused Q48H ED Infusion Piperacillin Sod/Tazobactam 50 mls @ 12.5 mls/hr 01/23/23 08:00 01/24/23 08:52 Sod 3.375 gm/ Sodium Chloride IV 12.5 mls/hr Q12H ED Administration Protocol As Directed Fluconazole 200 mg in 100 mls @ 100 mls/hr 01/23/23 08:30 01/24/23 08:51 Diflucan Premix IV 100 mls/hr Q24H ED Administration Heparin Sodium/Sodium Chloride 25,000 unit in 500 mls @ 0 mls/hr 01/23/23 11:30 01/23/23 18:06 Heparin Drip IV 14.3 unit/kg/hr .Q0M ED 29 mls/hr Administration Protocol Per Protocol Sodium Bicarbonate 150 meq/ 1,150 mls @ 100 mls/hr 01/24/23 08:30 01/24/23 08:51 Dextrose IV 100 mls/hr .[id number] ED Administration Insulin Glargine 10 unit 01/23/23 11:30 01/23/23 23:01 Insulin Glargine 100 Units/1 Ml SUBCUT 10 unit Q12H ED Administration Insulin Human Lispro 0 unit 01/22/23 21:00 01/23/23 20:20 Insulin Lispro 100 Unit/1 Ml SUBCUT 4 unit BEDTIME ED Administration Protocol Insulin Human Lispro 0 unit 01/22/23 20:07 01/24/23 11:30 Insulin Lispro 100 Unit/1 Ml SUBCUT 4 unit TIDWM ED Administration Protocol Pantoprazole Sodium 40 mg 01/23/23 08:00 01/24/23 08:52 Pantoprazole 40 Mg Sdv IVP 40 mg Q12H ED Administration Topiramate 100 mg 01/23/23 07:00 01/24/23 06:17 Topiramate 100 Mg Tablet PO 100 mg DAILY@07 ED Administration PFSH Acute PFSH: Medical History Bilateral renal stones Partial staghorn Chronic migraine without aura, intractable, with status migrainosus CKD (chronic kidney disease) CVA (cerebral vascular accident) Initial CVA 2011, has has multiple ischemic multiple vascular territory strokes, including vertebrobasilar artery thalamic stroke, left pontine stroke; left hemiparesis, difficulty communicating in conversation, short term more than [facility] memory loss Depression Diabetes mellitus, type II a1c 10/2020 12.7 Dyslipidemia History of seizure on topamax Hypertension hypertensive emergency 10/2020 Macular degeneration Neurogenic bladder suprapubic catheter Obesity Recurrent obstructive pyelonephritis Recurrent UTI Requires assistance with activities of daily living (ADL) Surgical History H/O detached retina repair H/O oral surgery History of suprapubic catheter S/P appendectomy S/P cataract surgery S/P cholecystectomy S/P knee surgery S/P shoulder surgery Status post cystoscopy with ureteral stent placement 01/14/2023, bilateral stents placed by Dr Gama Family History Father Cancer Lymphoma Mother CAD (coronary artery disease) Diabetes Chronic kidney disease (CKD) Social History Smoking and tobacco status: former smoker Alcohol intake: never Caregiver/support person: No Lives independently: No Marital status: Marital status details: 12/17/20 Current occupational status: disabled Vitals/I&O/Wt Last Vital Signs Temp 97.5 F L 01/24/23 04:00 Pulse 82 01/24/23 12:30 Resp 21 H 01/24/23 10:54 BP 150/66 01/24/23 12:30 Pulse Ox 98 01/24/23 12:30 O2 Del Method 01/23/23 04:00 O2 Flow Rate 2 01/23/23 04:00 FiO2 30 01/24/23 10:54 01/23/23 01/24/23 01/24/23 22:59 06:59 14:59 Intake Total 450 / 598.68 242.898 / 841.578 Balance 450 / 598.68 242.898 / 841.578 Weight last 48 hrs Weight 223 lb 9 oz Physical Exam Narrative: PHYSICAL EXAM: General: lying in bed, sedated and intubated. HEENT:NCAT, PERRLA, EOMI Neck: Supple Lungs: Coarse crackles especially in left lower lung zone Heart: s1/s2, RRR Abd: soft, NT, ND, BS + Normoactive Extremities: No edema [employer]: sedated and limited [employer] exam possible. SKIN: no rash LDA: # CVC: Right arm PICC line 01/23/2023 # HD Cath : Right IJ hemodialysis catheter 01/24/2023 #Suprapubic Root: Urinary Catheter Management: Suprapubic: Cath Placed During This Visit: no Reason for Continuing Indwelling Catheter: Accurate Measurement of Urinary Output in Critically Ill Patients Data 01/24/23 00:38 01/24/23 00:38 Other Labs: Radiology Impressions Abdomen/Pelvis CT 01/22/23 10:07 Impression: 1. Bilateral ureteral stents in good position with bilateral moderate renal pelvic dilatation. 2. Negative for acute intra-abdominal or pelvic abnormalities. Renal Ultrasound 01/23/23 07:51 IMPRESSION: Moderate left hydronephrosis. Chest CTA 01/24/23 14:12 IMPRESSION: 1. No CT findings of pulmonary embolus. 2. Findings suggestive of bilateral pneumonia, particularly mid and lower lungs and more prominent posteriorly within the lower lungs. No significant associated pleural effusion. 3. Mild arteriosclerosis thoracic aorta and coronary artery calcification. 4. Endotracheal catheter and right internal jugular central venous catheter appear in good position. Tip of the nasogastric tube appears just distal to the GE junction and consider advancement. Chest X-Ray 01/24/23 16:35 IMPRESSION: Findings as above. Laboratory Results WBC 11.8 10^3/uL (4.0-10.0) H 01/24/23 00:38 RBC 3.42 10^6/uL (4.1-5.3) L 01/24/23 00:38 Hgb 9.2 g/dL (11.5-15.3) L 01/24/23 00:38 Hct 30.1 % (37.0-47.0) L 01/24/23 00:38 MCV 88.0 fl (81-99) 01/24/23 00:38 MCH 26.9 pg (28.0-34.0) L 01/24/23 00:38 MCHC 30.6 g/dL (30.0-36.0) 01/24/23 00:38 RDW 14.1 % (12.1-15.1) 01/24/23 00:38 Plt Count 284 10^3/cmm (130-400) 01/24/23 00:38 MPV 9.8 fL (7.4-10.4) 01/24/23 00:38 Neut % (Auto) 75.7 % 01/24/23 00:38 Lymph % (Auto) 14.8 % 01/24/23 00:38 Blair % (Auto) 8.2 % 01/24/23 00:38 Eos % (Auto) 0.1 % 01/24/23 00:38 Baso % (Auto) 0.5 % 01/24/23 00:38 Neut # (Auto) 8.90 10^3/uL (1.8-7.7) H 01/24/23 00:38 Lymph # (Auto) 1.7 10^3/uL (0.8-4.8) 01/24/23 00:38 Blair # (Auto) 1.0 10^3/uL (0.2-0.9) H 01/24/23 00:38 Eos # (Auto) 0.0 10^3/uL (0.0-0.8) 01/24/23 00:38 Baso # (Auto) 0.1 10^3/uL (0.0-0.1) 01/24/23 00:38 Nucleated RBC % (auto) 0 % 01/24/23 00:38 Nucleated RBCs # 0.0 /100WBC 01/24/23 00:38 PT 15.80 SECONDS (12.1-14.9) H 01/24/23 00:38 INR 1.22 (0.8-1.2) H 01/24/23 00:38 APTT 35.9 SECONDS (23.9-36.7) 01/24/23 06:35 D-Dimer 2.21 ug/mIFEU (0-0.59) H 01/23/23 08:04 Specimen Type Arterial 01/24/23 17:01 Sample Site Brachial, right 01/24/23 17:01 ABG pH 7.39 (7.35-7.45) 01/24/23 17:01 ABG pCO2 35.4 mmHg (35-45) 01/24/23 17:01 ABG pO2 59.5 mmHg (80.0-100.0) L 01/24/23 17:01 ABG HCO3 21.5 mmol/L (22-26) L 01/24/23 17:01 ABG O2 Saturation 92.9 01/24/23 17:01 ABG Base Excess -3.0 mmol/L (-2.0-2.0) L 01/24/23 17:01 Mathieu Test Pos 01/24/23 17:01 A-a O2 Gradient 32.5 mmHg (5-10) H 01/24/23 17:01 Hematocrit 30.7 % (37-47) L 01/24/23 17:01 Hgb O2 Saturation 91.1 % (95-100) L 01/24/23 17:01 Carboxyhemoglobin 1.2 %THgb (0.4-20.1) 01/24/23 17:01 Methemoglobin 0.8 % (0.4-1.5) 01/24/23 17:01 Total Hemoglobin 10.0 g/dL (12-16) L 01/24/23 17:01 Sodium 142.0 mmol/L (131-143) 01/24/23 17:01 Potassium 2.9 mmol/L (3.5-5.0) L 01/24/23 17:01 Glucose 148.0 mg/dL (70-115) H 01/24/23 17:01 Ionized Calcium 1.1 mmol/L (1.1-1.4) 01/24/23 17:01 O2 Delivery Device Vent 01/24/23 17:01 FiO2 50.0 % 01/24/23 17:01 Tidal Volume 0.40 01/24/23 17:01 PEEP 8.0 cmH20 01/24/23 17:01 Shipping Agent ID Monro 01/24/23 17:01 Sodium 142 mmol/L (136-145) 01/24/23 19:42 Potassium 3.3 mmol/L (3.5-5.1) L 01/24/23 19:42 Chloride 104 mmol/L (98-107) 01/24/23 19:42 Carbon Dioxide 21 mmol/L (22-29) L 01/24/23 19:42 Anion Gap 20.3 (5-19) H 01/24/23 19:42 BUN 37 mg/dL (6-20) H 01/24/23 19:42 Creatinine 2.6 mg/dL (0.5-0.9) H 01/24/23 19:42 GFR Calculation 18.9 mL/min (90-130) L 01/24/23 19:42 Glucose 122 mg/dL (65-115) H 01/24/23 19:42 POC Glucose 117 mg/dL (70-110) H 01/24/23 20:36 Calculated Osmolality 304 mOsm/kg (285-295) H 01/24/23 19:42 Lactic Acid 1.5 mmol/L (0.5-2.2) 01/22/23 09:53 Lactate 1.0 mmol/L (0.5-2.2) 01/24/23 00:38 Calcium 7.8 mg/dL (8.5-10.5) L 01/24/23 19:42 Phosphorus 4.8 mg/dL (2.5-4.5) H 01/24/23 00:38 Magnesium 2.0 mg/dL (1.7-2.3) 01/24/23 00:38 Total Bilirubin 0.2 mg/dL (0.15-1.2) 01/24/23 00:38 AST 7 U/L (0-32) 01/24/23 00:38 ALT < 5 U/L (0-33) 01/24/23 00:38 Alkaline Phosphatase 67 U/L (35-105) 01/24/23 00:38 Creatine Kinase 157 U/L (26-192) 01/24/23 00:38 Troponin T Baseline 44 ng/L (0-10) H 01/23/23 08:04 Troponin T 120 Minute 45.74 ng/L (0-10) H 01/23/23 10:22 Delta Troponin T 1.74 ABS# (0-10) 01/23/23 10:22 Troponin T Hi Sens 6Hr 50.27 ng/L (0-10) H 01/23/23 14:09 Troponin T Hi Sens 6Hr Delta 6.27 ng/L (0-12) 01/23/23 14:09 C-Reactive Protein 274.7 mg/L (0.0-4.9) H 01/24/23 00:38 NT-Pro-B Natriuret Pep 5990 pg/mL (0-125) H 01/24/23 00:38 Total Protein 6.5 g/dL (6.6-8.7) L 01/24/23 00:38 Albumin 2.8 g/dL (3.5-5.2) L 01/24/23 00:38 Globulin 3.7 g/dL (1.3-4.6) 01/24/23 00:38 Procalcitonin 13.65 ng/mL (0-0.5) H 01/24/23 00:38 Urine Color Yellow (Yellow) 01/22/23 09:43 Urine Appearance Cloudy (CLEAR) A 01/22/23 09:43 Urine pH 8 (5-7) H 01/22/23 09:43 Ur Specific [place] 1.015 (1.005-1.030) 01/22/23 09:43 Urine Protein 1+ (Negative) H 01/22/23 09:43 Urine Glucose (UA) Norm (Normal) 01/22/23 09:43 Urine Ketones Negative (Negative) 01/22/23 09:43 Urine Blood 3+ (Negative) H 01/22/23 09:43 Urine Nitrate Negative (Negative) 01/22/23 09:43 Urine Bilirubin Neg (Negative) 01/22/23 09:43 Prot Sulfosalicylic Acd Positive (Negative) 01/22/23 09:43 Urine Urobilinogen Norm mg/dL (Negative) 01/22/23 09:43 Ur Leukocyte Esterase 2+ (Negative) H 01/22/23 09:43 Urine RBC 10-15 /hpf (0-2) H 01/22/23 09:43 Urine WBC >100 /hpf (0-5) H 01/22/23 09:43 Ur Squamous Epith Cells 0-4 /hpf (0-5) H 01/22/23 09:43 Amorphous Sediment Not Reportable 01/22/23 09:43 Urine Bacteria 1+ /hpf (NONE) H 01/22/23 09:43 Urine Mucus 3+ /hpf 01/22/23 09:43 Serum Ketones Negative (Negative) 01/22/23 09:16 Coronavirus 229E (PCR) Not detected (NOT DETECT) 01/23/23 Unknown Hep Bs Antigen Non-reactive (Nonreactive) 01/24/23 11:27 Hep Bs Antibody 3.5 (11.5-1000) L 01/24/23 11:27 Hep B Core Total Ab Non-reactive (Nonreactive) 01/24/23 11:27 Hepatitis C Antibody Non-reactive (Nonreactive) 01/24/23 11:27 Influenza Type A Ag negative (Negative) 01/22/23 11:02 Influenza Type B Ag negative (Negative) 01/22/23 11:02 SARS-CoV-2 (PCR) Not detected (NOT DETECT) 01/23/23 Unknown Micro: Microbiology 01/23/23 10:43 Blood Culture - Preliminary Blood NEGATIVE TO DATE 01/23/23 10:22 Blood Culture - Preliminary Blood NEGATIVE TO DATE 01/22/23 09:55 Blood Culture - Preliminary Blood NEGATIVE TO DATE 01/22/23 09:53 Blood Culture - Preliminary Blood NEGATIVE TO DATE 01/22/23 09:43 Urine Culture - Preliminary Urine,Clean Catch Gram Negative Rods A&P Assessment and plan (1) Acute encephalopathy: (2) Acute respiratory failure with hypoxia: (3) CVA (cerebral vascular accident): (4) Acute kidney injury: (5) Diabetes mellitus, type II: (6) Neurogenic bladder: (7) Status post cystoscopy with ureteral stent placement: (8) Metabolic acidosis: (9) Acute pyelonephritis: (10) CKD (chronic kidney disease): Plan ASSESSMENT/PLAN:Overall: 57-year-old Ms. Erika Shen with multiple CVAs with left hemiplegia, dependent on ADLs, neurogenic bladder s/p suprapubic catheter, recurrent UTIs, diabetes, CKD presented to emergency room with altered mental status, nausea, vomiting-found to be in sepsis based on labs-urine cultures growing persistent Proteus resistant to ciprofloxacin nitrofurantoin and tetracycline-went into acute hypoxic respiratory failure-secondary to fluid overload/aspiration pneumonia prompting intubation and mechanical ventilation support and developing sepsis induced EFREN on CKD stage III-prompting to start hemodialysis. NEURO: DIAGNOSIS-PLAN: {neuro:89915} #Altered mental status-secondary to recurrent UTI/aspiration pneumonia -Currently intubated/sedated on propofol 40 mcg/hour-added fentanyl 100 mcg/hour for pain and sedation -Titrate to achieve RASS -2 #History of multiple CVAs-with residual left hemiplegia -At baseline patient is dependent on ADLs -She is on Plavix and statin PULM: {PULMICU:13202} #Acute hypoxic respiratory failure-secondary to fluid overload/aspiration pneumonia -CTA 01/24/2023-did not show any evidence of PE, however showed left lower lobe consolidation -Patient is placed on ventilator with CMV 400/14/PEEP 8/30% FiO2-became hypoxic post hemodialysis-increased FiO2 to 50% and PEEP 12 -Patient is currently on hemodialysis for fluid removal -Patient is covered with vancomycin and Zosyn for aspiration pneumonia CVS: #Hemodynamically stable -Echocardiogram 01/23/2023-normal GI: {Gastro ICU:66817} #Diet: Start TF nephro #GI prophylaxis #PPI #LFTs: Within normal limits #RENAL: {Renal ICU:01412} #EFREN on CKD stage III -Worsening renal function and decreasing urine output -Nephrology on board -Hemodialysis catheter placed 01/24/2023-today she had first session of hemodialysis-after 2.5 hours and removing 2 L-catheter got clogged and has to terminate hemodialysis -Monitor BUN, creatinine, urine output, electrolytes #complicated urological history with neurogenic bladder, stones, suprapubic catheter as well as recurrent obstructive pyelonephritis.? - s/p cystoscopy with left ureteroscopy and left-sided laser lithotripsy with left ureteral stent placement along with removal of a prior right ureteral stent followed by introduction of a new stent and changing of her suprapubic catheter on January 14, 2023.? -Urology consulted HEM: #Leukocytosis-trending down after starting antibiotics #Normal platelets ENDO: #Diabetes -Currently on insulin -moderately controlled sugars -Monitor and adjust insulin scale coverage accordingly ID: #Persistent Proteus obstructive pyelonephritis #Suspected aspiration pneumonia -DIC panel negative -Currently patient is covered with vancomycin and Zosyn -Blood cultures negative so far -Currently hemodynamically stable without pressors -Monitor fever curve and white count Code Status: Full code Disposition: ICU Critically ill:{Critical illness:12186} yes MD discussed with: {Discussed with:71871} hospitalist, RT, RN taking care of the patient ICU CHECKLIST: Problem list updated Verbal orders reviewed and signed Analgesia: Fentanyl Glycemic Control: Insulin Nutrition: ok to start TF nephro Restraint Renewal (within 24 hrs): {YES:55050} Ulcer Prophylaxis: PPI Chemical Thromboprophylaxis: Prophylaxis: Heparin Mechanical Thromboprophylaxis: scds Need for Central line: yes for multiple medications Need for Root catheter: Yes Consult Attestations Medical Necessity Statement: Intubated for hypoxic respiratory failure; on hemodialysis for renal failure-need close ICU monitoring Time Spent in Patient Care: Greater than 35 minutes (>than 50% of time spent in counselling and/or direct pt care on unit). Critical Care Time: This patient has a high probability of clinically significant, sudden or life threatening deterioration of the patient's (pulmonary, neurological, renal, endocrine) systems required my full, direct attention, the highest level of physician preparedness for urgent intervention and personal management. I managed/supervised life or organ supporting interventions that required frequent physician assessment. I devoted my full attention in the ICU to the direct care of this patient for the period of time indicated above. Time I spent with family or surrogate(s) is included only if the patient was incapable of providing necessary information or participating in decision making. This time includes the following services provided: Telemetry review Mechanical Ventilation Hemodynamic interpretation, assessment and management Review and interpretation of CXR Review and interpretation of lab values Review and interpretation of microbiologic data and culture results Review of medications and administration Review and interpretation of Nutrition requirements and management Discussion of management with other consultants and services Clinical update to family members [x] Data and vital sign review and interpretation [x] Patient assessment, examination and intervention [x] Documentation [x] Medication orders and management Time spent for teaching as well as performing procedures are billed separately and is not included in this note Critical Care Time (min): 84 Coding Level of Care Code Critical Care >/= 30 minutes Diagnoses Acute encephalopathy G93.40 Acute respiratory failure with hypoxia J96.01 CVA (cerebral vascular accident) I63.9 Acute kidney injury N17.9 Diabetes mellitus, type II E11.9 Neurogenic bladder N31.9 Status post cystoscopy with ureteral stent placement Z96.0 Metabolic acidosis E87.20 Acute pyelonephritis N10 CKD (chronic kidney disease) N18.9 Time Spent (min) 84
--- NOTE | 2023-01-24 14:03 | P.PN_ITS ---
Subjective Subjective: Patient was seen this morning, she is intubated, sedated, febrile episodes as high as 101.2, remains normotensive, not on pressors, 30% FiO2, urine output is lackluster, Vitals/I&O/Wt Last Vital Signs Temp 97.5 F L 01/24/23 04:00 Pulse 82 01/24/23 12:30 Resp 21 H 01/24/23 10:54 BP 150/66 01/24/23 12:30 Pulse Ox 98 01/24/23 12:30 O2 Del Method 01/23/23 04:00 O2 Flow Rate 2 01/23/23 04:00 FiO2 30 01/24/23 10:54 01/23/23 01/24/23 01/24/23 22:59 06:59 14:59 Intake Total 450 / 598.68 242.898 / 841.578 Balance 450 / 598.68 242.898 / 841.578 Weight last 48 hrs Weight 101.406 kg Physical Exam Const: COMMON NORMALS: no acute distress OTHER: Intubated, sedated, endotracheal tube in place Eye: OTHER: Pupils are reactive to light Resp: COMMON NORMALS: normal respiratory effort, No retractions, No use of accessory muscles and clear to auscultation bilaterally AUSCULTATION: clear to auscultation bilaterally Cardio: COMMON NORMALS: regular rate, regular rhythm, S1 normal heart sound present and S2 normal heart sound present RATE: regular rate RHYTHM: regular rhythm HEART SOUNDS: S1 normal heart sound present and S2 normal heart sound present GI: COMMON NORMALS: Normal to inspection, nondistended, normoactive bowel sounds present and non-tender Extremity: COMMON NORMALS: no pedal edema Psych: COMMON NORMALS: mental status grossly normal Urinary Catheter Management: Suprapubic: Cath Placed During This Visit: no Reason for Continuing Indwelling Catheter: Accurate Measurement of Urinary Output in Critically Ill Patients Data 01/24/23 00:38 01/24/23 00:38 Micro: Microbiology 01/23/23 10:43 Blood Culture - Preliminary Blood NEGATIVE TO DATE 01/23/23 10:22 Blood Culture - Preliminary Blood NEGATIVE TO DATE 01/22/23 09:55 Blood Culture - Preliminary Blood NEGATIVE TO DATE 01/22/23 09:53 Blood Culture - Preliminary Blood NEGATIVE TO DATE 01/22/23 09:43 Urine Culture - Preliminary Urine,Clean Catch Gram Negative Rods A&P Assessment and plan (1) Sepsis: (2) Acute encephalopathy: (3) Acute respiratory failure with hypoxia: (4) Hydronephrosis, left: (5) NSTEMI (non-ST elevated myocardial infarction): (6) Metabolic acidosis: (7) Neurogenic bladder: (8) Diabetes mellitus, type II: (9) Dyslipidemia: (10) Acute kidney injury: (11) Acute pyelonephritis: (12) BMI 37.0-37.9, adult: (13) Suprapubic catheter: (14) Status post cystoscopy with ureteral stent placement: (15) CVA (cerebral vascular accident): (16) Deep tissue injury: (17) Metabolic acidosis: Plan Acute hypoxic respiratory failure -Possibly secondary to aspiration? -Possibly secondary to pulmonary embolism? -Possibly secondary to pulmonary edema -Once dialysis catheter is placed, will do CT angiogram of the chest, and then she will get dialysis thereafter Plan -Currently intubated, sedated on mechanical ventilation -Minimize FiO2, minimize tidal volume -Daily spontaneous breathing trials as requested -Propofol, and fentanyl for sedation -Levophed to maintain MAP greater than 65 -Currently on broad-spectrum antibiotic therapy vancomycin, Zosyn -Fluconazole added for antifungal coverage -Follow repeat blood cultures, sputum cultures, urine cultures -Venous ultrasound negative for DVT, D-dimer elevated, she is at high risk of pulmonary embolism, given her sudden nature of acute respiratory failure we will place her on heparin drip for possible pulmonary embolism, will order CT angiogram, dialysis thereafter -Concerns for fluid overload, however clinically she does not have pitting edema , no crackles on exam BNP is elevated, chest x-ray shows mild pulm vascular congestion will receive dialysis -Full code -Heparin drip for DVT prophylaxis Possible aspiration, monitor chest x-rays, as above Possible pulmonary embolism, as above Acute encephalopathy, intubated, sedated, -Monitor mentation off sedation Acute pyelonephritis -On broad-spectrum antibiotic therapy vancomycin, Zosyn -Fluconazole added for antifungal coverage -Monitor urine cultures, monitor blood cultures -Tylenol for fevers -Monitor creatinine, monitor urine output Acute renal failure on chronic kidney disease -Likely multifactorial -From sepsis -From pyelonephritis -Renal ultrasound does show left hydronephrosis -CT abdomen pelvis shows ?Bilateral ureteral stents in good position with bilateral moderate renal pelvic dilatation. -Spoke to Dr. Gama, he will monitor, given elevated EFRNE, if worsening renal function and persistent fevers and sepsis, he will consider change out of her ureteral stents -Nephrology has been consulted -Has not responded to IV fluids, creatinine 4.1 -Avoid nephrotoxic agents -Monitor creatinine, monitor urine output -Spoke to nephrology, plans on dialysis today, spoke to pulmonary, plans on dialysis catheter placement Metabolic acidosis, secondary acute renal failure Sepsis, secondary to acute pyelonephritis Persistent fevers, as above Status post cystoscopy with ureteral stent placement -Had bilateral ureteral stents placed January 14, [address] Gama -CT abdomen pelvis shows ?Bilateral ureteral stents in good position with b ilateral moderate renal pelvic dilatation. -Spoke to Dr. Gama, he will monitor, given elevated EFREN, if worsening renal function and persistent fevers and sepsis, he will consider change out of her ureteral stents -Spoke to Dr. Gama today, white count is decreasing, fever trend is decreasing, will consider change out based on clinical progress Suprapubic catheter in place -We will obtain culture, on examination has some purulent drainage around suprapubic catheter Hypertension, hold blood pressure medication Hyperglycemia with type 2 diabetes mellitus -Lantus 10 units every 12 hours -Monitor sliding scale History of CVA -History of multiple CVAs -With left hemiparesis, requires assistance with most ADLs -Can feed herself of the right hand -Chronically on Plavix History of seizures, continue Topamax Sacral decubitus ulcer stage I present on admission, Obesity Spoke to urology, spoke to nephrology, spoke to pulmonary Attestations Medical Necessity Statement*: Patient requires hospitalization for acute respiratory failure, acute renal failure, acute pyelonephritis Coding Level of Care Code Critical Care >/= 30 minutes Critical care time (in minutes): 50 The high probability of a clinically significant, sudden or life threatening deterioration, as referenced in this documentation, required my full and direct attention, intervention and personal management. The critical care time shown is in addition to time spent performing any reported separately billable procedures and includes the following: [x] Data and vital sign review and interpretation [x ] Patient assessment, examination and intervention [x] Medication orders and management [x] Patient/Family updates as able [x] Care Coordination and Documentation. Diagnoses Sepsis A41.9 Acute encephalopathy G93.40 Acute respiratory failure with hypoxia J96.01 Hydronephrosis, left N13.30 NSTEMI (non-ST elevated myocardial infarction) I21.4 Metabolic acidosis E87.20 Neurogenic bladder N31.9 Diabetes mellitus, type II E11.9 Dyslipidemia E78.5 Acute kidney injury N17.9 Acute pyelonephritis N10 BMI 37.0-37.9, adult Z68.37 Suprapubic catheter Z93.59 Status post cystoscopy with ureteral stent placement Z96.0 CVA (cerebral vascular accident) I63.9 Deep tissue injury T14.8XXA Metabolic acidosis E87.20
[2023-01-24] MEDS: insulin glargine 100 units/1 mL 10 UNIT SUBCUT ×2 (14:08→22:43)
--- NOTE | 2023-01-24 14:12 | CTR_ITS ---
PROCEDURE INFORMATION: Exam: CTA Chest With Contrast Exam date and time: 01/24/2023 2:38 PM Age: 57 years old Clinical indication: Abnormal findings; Abnormal diagnostic tests; Elevated d-dimer; Prior surgery; Surgery date: 6+ months; Surgery type: Gallbladder; Additional info: Pe TECHNIQUE: Imaging protocol: Computed tomographic angiography of the chest with contrast. 3D rendering (Not supervised by radiologist): MIP and/or 3D reconstructed images were created by the technologist. Radiation optimization: All CT scans at this facility use at least one of these dose optimization techniques: automated exposure control; mA and/or kV adjustment per patient size (includes targeted exams where dose is matched to clinical indication); or iterative reconstruction. Contrast material: [id number]; Contrast volume: 63 ml; Contrast route: INTRAVENOUS (IV); REPORTING DATA: Count of CT and Cardiac NM exams in prior 12 months: This patient has received 8 known CTs and 0 known cardiac nuclear medicine studies in the 12 months prior to the current study. COMPARISON: CT chest abd pel wo con 12/29/2021 8:55 PM RADIATION DOSE METRICS: Total DLP (mGy-cm): 461.64 FINDINGS: Tubes, catheters and devices: Endotracheal catheter appears in good position at the level of the thoracic inlet. Nasogastric tube is seen, with tip of the catheter just distal to the GE junction, consider advancement. Right internal jugular central venous catheter seen with tip of the catheter in the superior vena cava. Pulmonary arteries: Unremarkable. No pulmonary emboli. Aorta: Mild arteriosclerosis and without dissection or aneurysm. Lungs: Bilateral pulmonary parenchymal infiltrate with partial consolidation and air bronchograms are seen within both mid to lower lungs/lung bases along with component of basilar atelectasis. Mild atelectasis versus minimal infiltrate in the left paramediastinal location at the inferior aortic arch level in the upper left lung. Pleural spaces: No significant pleural effusion. No pneumothorax is seen. Heart: See Coronary arteries finding. Coronary arteries: Coronary artery calcification is seen. No significant cardiomegaly. No pericardial effusion. Lymph nodes: Unremarkable. No enlarged lymph nodes. Bones/joints: Spondylotic change thoracic spine and postsurgical change right shoulder. Soft tissues: Unremarkable. CT/CT angio chest PE protcl [id number]: 1. No CT findings of pulmonary embolus. 2. Findings suggestive of bilateral pneumonia, particularly mid and lower lungs and more prominent posteriorly within the lower lungs. No significant associated pleural effusion. 3. Mild arteriosclerosis thoracic aorta and coronary artery calcification. 4. Endotracheal catheter and right internal jugular central venous catheter appear in good position. Tip of the nasogastric tube appears just distal to the GE junction and consider advancement.
[2023-01-24] MEDS: iohexol 350 mg/mL 500 mL Btl (per mL) IV (14:44)
--- NOTE | 2023-01-24 15:29 | PC.HD ---
Upon assessment of patient following insertion of temporary R IJ HD catheter, it was found that the patient did not have a dressing applied to the site, nor was there a credit front office developer affixed to the arterial port of the catheter. No s/s of infection noted. Area was cleansed well with Chloraprep and a dressing was applied. Treatment commenced without issue.
--- NOTE | 2023-01-24 16:35 | XR_ITS ---
WS: [id number] EXAMINATION: XR chest 1V portable [id number] REASON FOR EXAM: decreased o2 COMPARISON: Previous study ORDER DATE: 01/24/2023 4:35 PM TECHNIQUE: A single, portable frontal chest x-ray was obtained. X-RAY FINDINGS: Left basal atelectasis is again present. Endotracheal tube and PICC line in satisfactory position. Th ere were many wires and electrode leads superimposing the chest. The enteric tube proximal sidehole i s still remaining in the distal esophagus right IJ central line unchanged right sided PICC line termi nating at the cavoatrial junction. XR/XR chest 1V portable [id number] IMPRESSION: Findings as above.
[2023-01-24 17:13] LABS: ABG PCO2 35.4 mmHg (35-45); ABG PH Result 7.39 (7.35-7.45); Alveolar-Arterial Oxygen Gradi 32.5 mmHg (5-10); Arterial Blood Gas Hematocrit 30.7 % (37-47); Blood Gas Allen Test Pos; Blood Gas Operator Identificat MONRO; Blood Gas Sample Site Brachial, right; Blood Gas Sample Type Arterial; Carboxyhemoglobin 1.2 %THgb (0.4-20.1); HCO3 ABG 21.5 mmol/L (22-26); HGB O2 Sat 91.1 % (95-100); Ionized Calcium Level - ABG 1.1 mmol/L (1.1-1.4); Methemoglobin 0.8 % (0.4-1.5); Oxygen Device VENT; Oxygen Saturation ABG 92.9; PO2 ABG 59.5 mmHg (80.0-100.0); Potassium Level - ABG 2.9 mmol/L (3.5-5.0)
[2023-01-24 17:14] LABS: Glucose Point of Care 149 mg/dL (70-110)
[2023-01-24] MEDS: heparin 5,000 unit/mL INJ 1 mL 5000 UNIT SUBCUT (17:35)
--- NOTE | 2023-01-24 18:15 | PC.HD ---
With 36 minutes remaining of treatment, hemodialysis circuit completely clotted. RN unable to return blood. Treatment was terminated early per clinical assoc, who has been apprised of the situation. Upon removing dialysis line from venous port of the catheter, a very large clot was pulled from the catheter. This RN attempted to draw from the venous port in an attempt to remove additional clots, but the port was completely occluded. RN was able to instill small amount of heparin into the port. Will request heparin for next treatment and Cath-[place] dwell prior to initiation of next treatment.
[2023-01-24 20:17] LABS: Anion Gap 20.3 (5-19); Blood Urea Nitrogen 37 mg/dL (6-20); Calcium 7.8 mg/dL (8.5-10.5); Carbon Dioxide 21 mmol/L (22-29); Chloride 104 mmol/L (98-107); Glomerular Filtration Rate 18.9 mL/min (90-130); Glucose 122 mg/dL (65-115); Osmolality Calculated 304 mOsm/kg (285-295); Potassium 3.3 mmol/L (3.5-5.1); Sodium 142 mmol/L (136-145)
[2023-01-24 20:39] LABS: Glucose Point of Care 117 mg/dL (70-110)
[2023-01-24 21:04] LABS: INR 1.08 (0.8-1.2); Partial Thromboplastin Time 26.7 SECONDS (23.9-36.7)
[2023-01-24 21:05] LABS: Fibrinogen 895 mg/dL (174-498)
[2023-01-24 21:18] LABS: Procalcitonin 9.51 ng/mL (0-0.5)
[2023-01-24 21:55] LABS: D Dimer >= 20.00 ug/mIFEU (0-0.59)
[2023-01-25] VITALS (56 sets, daily range): BP systolic 71–106; BP diastolic 43–65; PULSE 81–103; RESP 14–18; TEMP 37.3–38.7; O2SAT 91–100
[2023-01-25 02:53] LABS: Basophils % 0.3 %; Eosinophils # 0.2 10^3/uL (0.0-0.8); Eosinophils % 1.6 %; Hematocrit 27.6 % (37.0-47.0); Hemoglobin 8.5 g/dL (11.5-15.3); Lymphocytes # 1.4 10^3/uL (0.8-4.8); Lymphocytes % 11.4 %; Mean Corpuscular HGB Conc 30.8 g/dL (30.0-36.0); Mean Corpuscular Hemoglobin 26.5 pg (28.0-34.0); Mean Platelet Volume 9.7 fL (7.4-10.4); Monocytes % 8.5 %; Neutrophils # 9.35 10^3/uL (1.8-7.7); Neutrophils % 77.3 %; Nucleated Red Blood Cells % 0 %; Platelet Count 254 10^3/cmm (130-400); Red Blood Count 3.21 10^6/uL (4.1-5.3); White Blood Count 12.1 10^3/uL (4.0-10.0)
[2023-01-25 03:06] LABS: Alanine Aminotransferase < 5 U/L (0-33); Albumin Level 2.6 g/dL (3.5-5.2); Alkaline Phosphatase 68 U/L (35-105); Anion Gap 18.6 (5-19); Aspartate Amino Transferase 9 U/L (0-32); Blood Urea Nitrogen 37 mg/dL (6-20); C Reactive Protein 278.8 mg/L (0.0-4.9); Calcium 7.6 mg/dL (8.5-10.5); Carbon Dioxide 21 mmol/L (22-29); Chloride 103 mmol/L (98-107); Globulin 3.7 g/dL (1.3-4.6); Glomerular Filtration Rate 13.8 mL/min (90-130); Glucose 109 mg/dL (65-115); Magnesium 1.7 mg/dL (1.7-2.3); Osmolality Calculated 297 mOsm/kg (285-295); Phosphorus 4.4 mg/dL (2.5-4.5); Potassium 3.6 mmol/L (3.5-5.1); Sodium 139 mmol/L (136-145); Total Bilirubin 0.2 mg/dL (0.15-1.2); Total Protein 6.3 g/dL (6.6-8.7)
[2023-01-25 03:12] LABS: Lactate (Lactic Acid level) 0.8 mmol/L (0.5-2.2)
[2023-01-25 03:16] LABS: NT Pro B Type Natriuretic Pept 3633 pg/mL (0-125)
[2023-01-25 03:27] LABS: Creatine Phosphokinase 72 U/L (26-192)
[2023-01-25 03:43] LABS: ABG PCO2 39.4 mmHg (35-45); ABG PH Result 7.33 (7.35-7.45); Arterial Blood Gas Hematocrit 36.1 % (37-47); Base Excess ABG -4.6 mmol/L (-2.0-2.0); Blood Gas Operator Identificat JB; Blood Gas Sample Site Brachial, right; Blood Gas Sample Type Arterial; Blood Gas Tidal Volume 0.45; HCO3 ABG 20.9 mmol/L (22-26); Oxygen Device VENT; PO2 ABG 93.8 mmHg (80.0-100.0)
[2023-01-25] MEDS: acetaminophen 650 mg Supp PR (03:48)
[2023-01-25] MEDS: propofol 1,000 MG/100 ML INJ 21.3 MG IV (04:52)
[2023-01-25] MEDS: heparin 5,000 unit/mL INJ 1 mL 5000 UNIT SUBCUT ×2 (06:12→17:46)
[2023-01-25] MEDS: clopidogrel 75 mg Tablet PO (06:12)
[2023-01-25] MEDS: topiramate 100 mg Tablet PO (06:12)
[2023-01-25 07:41] LABS: Glucose Point of Care 161 mg/dL (70-110)
[2023-01-25] MEDS: piperacillin-tazobactam 3.375 GM in sodium chloride 0.9% (plus) 50 ML IV (07:57)
[2023-01-25] MEDS: vancomycin 1,500 MG/300 ML PIGGYBACK 200 MG IV (07:58)
[2023-01-25] MEDS: pantoprazole 40 mg SDV IVP ×2 (07:59→20:32)
[2023-01-25] MEDS: fluconazole premix 200 MG/100 ML PREMIX 100 MG IV (07:59)
[2023-01-25] MEDS: atorvastatin 40 mg Tablet PO (08:00)
[2023-01-25] MEDS: escitalopram 10 mg Tablet 20 MG PO (08:00)
[2023-01-25] MEDS: insulin lispro 100 unit/1 mL SUBCUT (08:01)
--- NOTE | 2023-01-25 08:15 | P.CONIM_ITS ---
Providers/Reason For Consult Consulting Physician/Specialty*: Urology/follow-up Reason for Consult*: Ureteral obstruction, sepsis Requesting Physician: Dr. Bazan Attending Physician: Julius Bazan MD Primary Care Provider: Vu Neil Jr, MD History of Present Illness History of Present Illness Erika is a 58 year old female well-known to me for history of complicated recurrent UTIs, recurrent obstructive pyelonephritis with recent hospitalization for mental status changes and evidence of sepsis. I was consulted for evaluation of upper urinary tract obstruction in the face of residual/refractory infection. I have reviewed her chart completely and have had multiple conversations with Dr. Bazan over the last several days I last saw her on 01/14/2023 where she underwent left ureterorenoscopy with clearing of a lot of yeast basilar type material and placement of a stent and then inspection of the right side with similar findings. Based on her overall condition and a prolonged surgical intervention to clear the left side stents were replaced bilaterally and plans were made for dedicated time for the right side next week. Unfortunately the meantime she became sick again. CT scan on this admission showed new hydronephrosis on the left side. There was some hint of possible debris in the distal ureter. It was clear the stent was not draining as well. Initially look like she was improving with antibiotic therapy along with anticipation of taken to the operating room under more controlled circumstances her white count started increasing again today and she continued to spike fevers After discussion with Dr. Bazan it was elected to proceed with cystoscopy bilateral ureteral stent exchange today when time is available. I reviewed with her sister Mrs. Johnston the rationale for this. Explained the p rocedure in detail. She gave informed consent. Her consent was witnessed by nursing staff. Review of Systems General: Reports: ROS unobtainable due to endotracheal tube, ROS unobtainable due to medical condition and ROS unobtainable due to mental status Medications/Allergies Home Medications Medication Instructions Recorded Confirmed Last Taken Type escitalopram oxalate 20 mg tablet 20 mg PO DAILY@12/01/19 01/22/23 01/22/23 History solifenacin 5 mg tablet (Vesicare) 5 mg PO DAILY@12/01/19 01/22/23 01/22/23 History topiramate 100 mg tablet (Topamax) 100 mg PO DAILY@12/01/19 01/22/23 01/22/23 History cyclobenzaprine 10 mg tablet 10 mg PO Q8H PRN muscle spasms 10/12/20 01/22/23 12/22/20 History blood sugar diagnostic (Accu-Chek #10 ea 10/15/20 01/22/23 Unknown Rx Gaby Plus test strips) blood-glucose meter (Accu-Chek #1 ea 10/15/20 01/22/23 Unknown Rx Gaby Plus Meter) lancets (Accu-Chek Multiclix #100 ea 10/15/20 01/22/23 Unknown Rx Lancet) metoprolol succinate 200 mg 200 mg PO DAILY@12/17/20 01/22/23 01/22/23 History tablet,extended release 24 hr methenamine hippurate 1 gram 1 g PO BID@05/01/21 01/22/23 01/22/23 History tablet (Hiprex) bisacodyl 10 mg rectal suppository 10 mg MA DAILY PRN Constipation 08/03/21 01/22/23 Unknown History insulin glargine 100 unit/mL (3 25 unit SUBCUT BEDTIME@08/03/21 01/22/23 01/21/23 History mL) subcutaneous pen (Lantus Solostar U-100 Insulin) hydrocodone 5 mg-acetaminophen 325 1 tab PO Q4H PRN Pain 11/20/21 01/22/23 12/17/22 History mg tablet amlodipine 10 mg tablet 10 mg PO DAILY@01/05/22 01/22/23 01/22/23 History clopidogrel 75 mg tablet 75 mg PO DAILY@01/05/22 01/22/23 01/22/23 History pravastatin 80 mg tablet 80 mg PO DAILY@08/09/22 01/22/23 01/22/23 History sodium phosphates 19 gram-7 118 ml MA DAILY PRN Constipation 08/09/22 01/22/23 Unknown History gram/118 mL enema (Enema Disposable) hydroxyzine HCl 25 mg tablet 25 mg PO Q8H PRN Itching 09/19/22 01/22/23 Unknown History acetaminophen 650 mg rectal 650 mg MA Q6H PRN pain/fever 12/11/22 01/22/23 Unknown History suppository sitagliptin phosphate 25 mg tablet 25 mg PO DAILY@07 12/11/22 01/22/23 01/22/23 History (Januvia) fluconazole 150 mg tablet 150 mg PO DAILY 01/22/23 01/22/23 01/22/23 History Allergies Allergy/AdvReac Type Severity Reaction Status Date / Time levofloxacin [From Levaquin] Allergy NA Verified 01/22/23 09:57 metronidazole [From Flagyl] Allergy NA Verified 01/22/23 09:57 miconazole Allergy NA Verified 01/22/23 09:57 Sulfa (Sulfonamide Allergy NA Verified 01/22/23 09:57 Antibiotics) sulfamethoxazole Allergy Unknown Verified 01/22/23 09:57 [From Bactrim] trimethoprim [From Bactrim] Allergy Unknown Verified 01/22/23 09:57 Current Medications Generic Name Dose Route Start Last Admin Trade Name Freq PRN Reason Stop Dose Admin Acetaminophen 650 mg 01/22/23 20:07 01/25/23 03:48 Acetaminophen 650 Mg Supp MA 650 mg Q6H PRN Administration mild pain/temp >/= 101 if npo Atorvastatin Calcium 40 mg 01/23/23 09:00 01/25/23 08:00 Atorvastatin 40 Mg Tablet PO 40 mg DAILY ED Administration Clopidogrel Bisulfate 75 mg 01/23/23 07:00 01/25/23 06:12 Clopidogrel 75 Mg Tablet PO 75 mg DAILY@07 ED Administration Escitalopram Oxalate 20 mg 01/23/23 09:00 01/25/23 08:00 Escitalopram 10 Mg Tablet PO 20 mg DAILY ED Administration Heparin Sodium (Porcine) 5,000 unit 01/24/23 18:00 01/25/23 06:12 Heparin 5,000 Unit/Ml Inj 1 Ml SUBCUT 5,000 unit Q12H ED Administration Propofol 1,000 mg in 100 mls @ 0 mls/hr 01/23/23 07:15 01/25/23 05:33 Diprivan IV 30 mcg/kg/min .Q0M ED 18.25 mls/hr Titration Protocol Per Protocol Vancomycin/PEG/NADA/Lysine/Water 1,500 mg in 300 mls @ 200 mls/hr 01/23/23 08:30 01/25/23 07:58 Vancocin IV 200 mls/hr Q48H ED Administration Piperacillin Sod/Tazobactam 50 mls @ 12.5 mls/hr 01/23/23 08:00 01/25/23 07 :57 Sod 3.375 gm/ Sodium Chloride IV 12.5 mls/hr Q12H ED Administration Protocol As Directed Fluconazole 200 mg in 100 mls @ 100 mls/hr 01/23/23 08:30 01/25/23 07:59 Diflucan Premix IV 100 mls/hr Q24H ED Administration Fentanyl 1,000 mcg/ Sodium 100 mls @ 0 mls/hr 01/24/23 13:15 01/25/23 00:55 Chloride IV 25 mcg/hr .Q0M ED 2.5 mls/hr Administration Protocol Per Protocol Midazolam HCl 100 mg/ Sodium 100 mls @ 0 mls/hr 01/24/23 21:00 01/24/23 22:06 Chloride IV 1 mg/hr .Q0M ED 1 mls/hr Administration Protocol Per Protocol Insulin Glargine 10 unit 01/23/23 11:30 01/24/23 22:43 Insulin Glargine 100 Units/1 Ml SUBCUT 10 unit Q12H ED Administration Insulin Human Lispro 0 unit 01/22/23 21:00 01/24/23 20:58 Insulin Lispro 100 Unit/1 Ml SUBCUT Not Given BEDTIME ED Protocol Insulin Human Lispro 0 unit 01/22/23 20:07 01/25/23 08:01 Insulin Lispro 100 Unit/1 Ml SUBCUT 4 unit TIDWM ED Administration Protocol Pantoprazole Sodium 40 mg 01/23/23 08:00 01/25/23 07:59 Pantoprazole 40 Mg Sdv IVP 40 mg Q12H ED Administration Topiramate 100 mg 01/23/23 07:00 01/25/23 06:12 Topiramate 100 Mg Tablet PO 100 mg DAILY@07 ED Administration PFSH Acute PFSH: Medical History Bilateral renal stones Partial staghorn Chronic migraine without aura, intractable, with status migrainosus CKD (chronic kidney disease) CVA (cerebral vascular accident) Initial CVA 2011, has has multiple ischemic multiple vascular territory strokes, including vertebrobasilar artery thalamic stroke, left pontine stroke; left hemiparesis, difficulty communicating in conversation, short term more than supervisor long goods memory loss Depression Diabetes mellitus, type II a1c 10/2020 12.7 Dyslipidemia History of seizure on topamax Hypertension hypertensive emergency 10/2020 Macular degeneration Neurogenic bladder suprapubic catheter Obesity Recurrent obstructive pyelonephritis Recurrent UTI Requires assistance with activities of daily living (ADL) Surgical History H/O detached retina repair H/O oral surgery History of suprapubic catheter S/P appendectomy S/P cataract surgery S/P cholecystectomy S/P knee surgery S/P shoulder surgery Status post cystoscopy with ureteral stent placement 01/14/2023, bilateral stents placed by Dr Gama Family History Father Cancer Lymphoma Mother CAD (coronary artery disease) Diabetes Chronic kidney disease (CKD) Social History Smoking and tobacco status: former smoker Alcohol intake: never Caregiver/support person: No Lives independently: No Marital status: Marital status details: 12/17/20 Current occupational status: disabled Vitals/I&O/Wt Last Vital Signs Temp 101.1 F H 01/25/23 07:30 Pulse 98 01/25/23 07:30 Resp 14 01/25/23 07:56 BP 85/61 01/25/23 07:30 Pulse Ox 100 01/25/23 07:56 O2 Del Method 01/23/23 04:00 O2 Flow Rate 2 01/23/23 04:00 FiO2 50 01/25/23 07:56 01/24/23 01/25/23 01/25/23 22:59 06:59 14:59 Intake Total 500 / 750 293.722 / 1749.967 9095 / 2750 Output Total 3119 / 3119 Balance -2619 / -2369 293.722 / -2075.278 2750 / 2750 Weight last 48 hrs Weight 240 lb 1.334 oz Physical Exam Narrative: On ventilator. Const: COMMON NORMALS: no acute distress OTHER: Intubated, sedated, endotracheal tube in place Resp: COMMON NORMALS: clear to auscultation bilaterally AUSCULTATION: clear to auscultation bilaterally Cardio: COMMON NORMALS: regular rate and regular rhythm RATE: regular rate RHYTHM: regular rhythm GI: OTHER: Nondistended : OTHER: Suprapubic tube in place and functioning Neuro: OTHER: Not obtainable Psych: OTHER: Not obtainable Urinary Catheter Management: Suprapubic: Cath Placed During This Visit: no Reason for Continuing Indwelling Catheter: Accurate Measurement of Urinary Output in Critically Ill Patients Data 01/25/23 02:44 01/25/23 02:44 Micro: Microbiology 01/22/23 09:43 Urine Culture - Final Urine,Clean Catch Proteus mirabilis 01/23/23 10:43 Blood Culture - Preliminary Blood NEGATIVE TO DATE 01/23/23 10:22 Blood Culture - Preliminary Blood NEGATIVE TO DATE A&P Assessment and plan (1) Bilateral ureteral obstruction: Currently her right ureteral stent seems to be functioning well. She does have a significant amount of debris in the right kidney consistent with fungal bezoar based on pathologic evaluation of the debris removed on the LEFT ureteroscopy last visit. Given the hydronephrosis on the left side I am going exchange her stent for a larger stent but also recommend changing to a larger stent on the right side given the risk of current stent also becoming obstructed. She may require extraction of some of the material in the left ureter potentially. See HPI (2) Hydronephrosis, left: Despite stent in place. Most likely related to fungal bezoar obstruction of the stent. She is on antifungals at this time (3) Suprapubic catheter: (4) Neurogenic bladder: (5) Retained ureteral stent: Consult Attestations Medical Necessity Statement: See attending Coding Level of Care Code Acute Code for Ish Sawyer Diagnoses Bilateral ureteral obstruction N13.5 Hydronephrosis, left N13.30 Suprapubic catheter Z93.59 Neurogenic bladder N31.9 Retained ureteral stent Z96.0
--- NOTE | 2023-01-25 08:56 | ANES.PREANE2 ---
Pre-Anesthetic Assessment Height/Weight: Height 1.68 m Weight 108.9 kg Temp Pulse Resp BP Pulse Ox O2 Del Method O2 Flow Rate 101.1 F H 98 14 85/61 100 2 01/25/23 08:00 01/25/23 07:30 01/25/23 07:56 01/25/23 07:30 01/25/23 07:56 01/25/23 08:00 01/23/23 04:00 FiO2 40 01/25/23 08:48 Preop Diagnosis: Bilateral ureteral obstruction, obstructive pyelonephritis post stenting Operation Date: 01/25/23 10:00 Proposed Procedures p Cystoscopy(Not Applicable) - Osorio Gama MD s Ureteral Stent Exchange(Bilateral) - Osorio Gama MD Familial anesthetic complications: None Exam Intubated and sedated Airway Comments: Comments: Intbuated and sedated Pulmonary Intubated for respiratory failure - suspected aspiration pneumonia CT chest CT/CT angio chest PE protcl [id number] IMPRESSION: 1. No CT findings of pulmonary embolus. 2. Findings suggestive of bilateral pneumonia, particularly mid and lower lungs and more prominent posteriorly within the lower lungs.? No significant associated pleural effusion. 3. Mild arteriosclerosis thoracic aorta and coronary artery calcification. 4. Endotracheal catheter and right internal jugular central venous catheter appear in good position.? Tip of the nasogastric tube appears just distal to the GE junction and consider advancement CV/HEM Anemia NSTEMI echo CONCLUSIONS ?Normal left ventricular size and systolic function, EF 68%. ?No regional wall motion abnormalities. ?Normal cardiac chamber sizes. ?No significant valvular lesions were noted. ?There is no pericardial effusion. ?Technically difficult study because of the poor ultrasonic ?window. Chronic Renal Insufficiency EFREN on dialysis Infected stent Metabolic Diabetes Mellitus and Morbid Obesity hypokalemia, metabolic acidosis Neuropsych Cerebrovascular Accident and Seizure AMS Anesthetic Plan ASA status: 4E Anesthesia: General Risk of > 500 ml blood loss (7ml/kg in children): No Medications/Allergies Home Medications Medication Instructions Recorded Confirmed Last Taken Type escitalopram oxalate 20 mg tablet 20 mg PO DAILY@12/01/19 01/22/23 01/22/23 History solifenacin 5 mg tablet (Vesicare) 5 mg PO DAILY@12/01/19 01/22/23 01/22/23 History topiramate 100 mg tablet (Topamax) 100 mg PO DAILY@12/01/19 01/22/23 01/22/23 History cyclobenzaprine 10 mg tablet 10 mg PO Q8H PRN muscle spasms 10/12/20 01/22/23 12/22/20 History blood sugar diagnostic (Accu-Chek #10 ea 10/15/20 01/22/23 Unknown Rx Gaby Plus test strips) blood-glucose meter (Accu-Chek #1 ea 10/15/20 01/22/23 Unknown Rx Gaby Plus Meter) lancets (Accu-Chek Multiclix #100 ea 10/15/20 01/22/23 Unknown Rx Lancet) metoprolol succinate 200 mg 200 mg PO DAILY@12/17/20 01/22/23 01/22/23 History tablet,extended release 24 hr methenamine hippurate 1 gram 1 g PO BID@05/01/21 01/22/23 01/22/23 History tablet (Hiprex) bisacodyl 10 mg rectal suppository 10 mg CA DAILY PRN Constipation 08/03/21 01/22/23 Unknown History insulin glargine 100 unit/mL (3 25 unit SUBCUT BEDTIME@08/03/21 01/22/23 01/21/23 History mL) subcutaneous pen (Lantus Solostar U-100 Insulin) hydrocodone 5 mg-acetaminophen 325 1 tab PO Q4H PRN Pain 11/20/21 01/22/23 12/17/22 History mg tablet amlodipine 10 mg tablet 10 mg PO DAILY@01/05/22 01/22/23 01/22/23 History clopidogrel 75 mg tablet 75 mg PO DAILY@01/05/22 01/22/23 01/22/23 History pravastatin 80 mg tablet 80 mg PO DAILY@08/09/22 01/22/23 01/22/23 History sodium phosphates 19 gram-7 118 ml CA DAILY PRN Constipation 08/09/22 01/22/23 Unknown History gram/118 mL enema (Enema Disposable) hydroxyzine HCl 25 mg tablet 25 mg PO Q8H PRN Itching 09/19/22 01/22/23 Unknown History acetaminophen 650 mg rectal 650 mg CA Q6H PRN pain/fever 12/11/22 01/22/23 Unknown History suppository sitagliptin phosphate 25 mg tablet 25 mg PO DAILY@07 12/11/22 01/22/23 01/22/23 History (Leidy) fluconazole 150 mg tablet 150 mg PO DAILY 01/22/23 01/22/23 01/22/23 History Allergies Allergy/AdvReac Type Severity Reaction Status Date / Time levofloxacin [From Levaquin] Allergy NA Verified 01/22/23 09:57 metronidazole [From Flagyl] Allergy NA Verified 01/22/23 09:57 miconazole Allergy NA Verified 01/22/23 09:57 Sulfa (Sulfonamide Allergy NA Verified 01/22/23 09:57 Antibiotics) sulfamethoxazole Allergy Unknown Verified 01/22/23 09:57 [From Bactrim] trimethoprim [From Bactrim] Allergy Unknown Verified 01/22/23 09:57 Current Medications Generic Name Dose Route Start Last Admin Trade Name Freq PRN Reason Stop Dose Admin Acetaminophen 650 mg 01/22/23 20:07 01/25/23 03:48 Acetaminophen 650 Mg Supp CA 650 mg Q6H PRN Administration mild pain/temp >/= 101 if npo Atorvastatin Calcium 40 mg 01/23/23 09:00 01/25/23 08:00 Atorvastatin 40 Mg Tablet PO 40 mg DAILY ED Administration Clopidogrel Bisulfate 75 mg 01/23/23 07:00 01/25/23 06:12 Clopidogrel 75 Mg Tablet PO 75 mg DAILY@07 ED Administration Escitalopram Oxalate 20 mg 01/23/23 09:00 01/25/23 08:00 Escitalopram 10 Mg Tablet PO 20 mg DAILY ED Administration Heparin Sodium (Porcine) 5,000 unit 01/24/23 18:00 01/25/23 06:12 Heparin 5,000 Unit/Ml Inj 1 Ml SUBCUT 5,000 unit Q12H ED Administration Propofol 1,000 mg in 100 mls @ 0 mls/hr 01/23/23 07:15 01/25/23 05:33 Diprivan IV 30 mcg/kg/min .Q0M ED 18.25 mls/hr Titration Protocol Per Protocol Vancomycin/PEG/NADA/Lysine/Water 1,500 mg in 300 mls @ 200 mls/hr 01/23/23 08:30 01/25/23 07:58 Vancocin IV 200 mls/hr Q48H ED Administration Piperacillin Sod/Tazobactam 50 mls @ 12.5 mls/hr 01/23/23 08:00 01/25/23 07:57 Sod 3.375 gm/ Sodium Chloride IV 12.5 mls/hr Q12H ED Administration Protocol As Directed Fluconazole 200 mg in 100 mls @ 100 mls/hr 01/23/23 08:30 01/25/23 07:59 Diflucan Premix IV 100 mls/hr Q24H ED Administration Fentanyl 1,000 mcg/ Sodium 100 mls @ 0 mls/hr 01/24/23 13:15 01/25/23 00:55 Chloride IV 25 mcg/hr .Q0M ED 2.5 mls/hr Administration Protocol Per Protocol Midazolam HCl 100 mg/ Sodium 100 mls @ 0 mls/hr 01/24/23 21:00 01/24/23 22:06 Chloride IV 1 mg/hr .Q0M ED 1 mls/hr Administration Protocol Per Protocol Insulin Glargine 10 unit 01/23/23 11:30 01/24/23 22:43 Insulin Glargine 100 Units/1 Ml SUBCUT 10 unit Q12H ED Administration Insulin Human Lispro 0 unit 01/22/23 21:00 01/24/23 20:58 Insulin Lispro 100 Unit/1 Ml SUBCUT Not Given BEDTIME ED Protocol Insulin Human Lispro 0 unit 01/22/23 20:07 01/25/23 08:01 Insulin Lispro 100 Unit/1 Ml SUBCUT 4 unit TIDWM ED Administration Protocol Pantoprazole Sodium 40 mg 01/23/23 08:00 01/25/23 07:59 Pantoprazole 40 Mg Sdv IVP 40 mg Q12H ED Administration Topiramate 100 mg 01/23/23 07:00 01/25/23 06:12 Topiramate 100 Mg Tablet PO 100 mg DAILY@07 ED Administration PFSH Anesthesia Medical History Bilateral renal stones Partial staghorn Chronic migraine without aura, intractable, with status migrainosus CKD (chronic kidney disease) CVA (cerebral vascular accident) Initial CVA 2011, has has multiple ischemic multiple vascular territory strokes, including vertebrobasilar artery thalamic stroke, left pontine stroke; left hemiparesis, difficulty communicating in conversation, short term more than senior living memory loss Depression Diabetes mellitus, type II a1c 10/2020 12.7 Dyslipidemia History of seizure on topamax Hypertension hypertensive emergency 10/2020 Macular degeneration Neurogenic bladder suprapubic catheter Obesity Recurrent obstructive pyelonephritis Recurrent UTI Requires assistance with activities of daily living (ADL) Surgical History H/O detached retina repair H/O oral surgery History of suprapubic catheter S/P appendectomy S/P cataract surgery S/P cholecystectomy S/P knee surgery S/P shoulder surgery Status post cystoscopy with ureteral stent placement 01/14/2023, bilateral stents placed by Dr Gama Family History Father Cancer Lymphoma Mother CAD (coronary artery disease) Diabetes Chronic kidney disease (CKD) Social History Smoking and tobacco status: former smoker Alcohol intake: never Caregiver/support person: No Lives independently: No Marital status: Marital status details: 12/17/20 Current occupational status: disabled Data Anesthesia 01/25/23 02:44 01/25/23 02:44 Short CBC 01/24/23 01/25/23 Range/Units 00:38 02:44 WBC 11.8 H 12.1 H (4.0-10.0) 10^3/uL Hgb 9.2 L 8.5 L (11.5-15.3) g/dL Hct 30.1 L 27.6 L (37.0-47.0) % MCV 88.0 86.0 (81-99) fl Plt Count 284 254 (130-400) 10^3/cmm Neut % (Auto) 75.7 77.3 % Neut # (Auto) 8.90 H 9.35 H (1.8-7.7) 10^3/uL BMP 01/23/23 01/24/23 01/24/23 11:50 00:38 19:42 Sodium 145 146 H 142 Potassium 4.0 3.9 3.3 L Chloride 113 H 114 H 104 Carbon Dioxide 16 L 15 L 21 L BUN 61 H 63 H 37 H Creatinine 3.7 H 4.1 H 2.6 H Glucose 127 H 152 H 122 H Calcium 8.2 L 7.9 L 7.8 L 01/25/23 02:44 Sodium 139 Potassium 3.6 Chloride 103 Carbon Dioxide 21 L BUN 37 H Creatinine 3.4 H Glucose 109 Calcium 7.6 L Cardiac Enzymes 01/23/23 01/23/23 01/23/23 Range/Units 08:04 08:04 10:22 Creatine Kinase 92 (26-192) U/L Troponin T Baseline 44 H (0-10) ng/L Troponin T 120 Minute 45.74 H (0-10) ng/L Delta Troponin T 1.74 (0-10) ABS# Troponin T Hi Sens 6Hr (0-10) ng/L Troponin T Hi Sens 6Hr Delta (0-12) ng/L NT-Pro-B Natriuret Pep 5385 H (0-125) pg/mL 01/23/23 01/23/23 01/24/23 Range/Units 14:09 14:09 00:38 Creatine Kinase 113 157 (26-192) U/L Troponin T Baseline (0-10) ng/L Troponin T 120 Minute (0-10) ng/L Delta Troponin T (0-10) ABS# Troponin T Hi Sens 6Hr 50.27 H (0-10) ng/L Troponin T Hi Sens 6Hr Delta 6.27 (0-12) ng/L NT-Pro-B Natriuret Pep 5990 H (0-125) pg/mL 01/25/23 Range/Units 02:44 Creatine Kinase 72 (26-192) U/L Troponin T Baseline (0-10) ng/L Troponin T 120 Minute (0-10) ng/L Delta Troponin T (0-10) ABS# Troponin T Hi Sens 6Hr (0-10) ng/L Troponin T Hi Sens 6Hr Delta (0-12) ng/L NT-Pro-B Natriuret Pep 3633 H (0-125) pg/mL Liver Function 01/24/23 01/25/23 Range/Units 00:38 02:44 Total Bilirubin 0.2 0.2 (0.15-1.2) mg/dL AST 7 9 (0-32) U/L ALT < 5 < 5 (0-33) U/L Alkaline Phosphatase 67 68 (35-105) U/L Albumin 2.8 L 2.6 L (3.5-5.2) g/dL COVID Results 01/23/23 Unknown Coronavirus 229E (PCR) Not detected SARS-CoV-2 (PCR) Not detected Coags 01/23/23 01/24/23 01/24/23 08:04 00:38 00:38 PT 15.80 H INR 1.22 H APTT Fibrinogen Fibrin Degrad Products D-Dimer 2.21 H C-Reactive Protein 274.7 H 01/24/23 01/24/23 01/24/23 00:38 06:35 20:37 PT 14.40 INR 1.08 APTT 56.1 H 35.9 26.7 Fibrinogen 895 H Fibrin Degrad Products Pos, >=40 H D-Dimer >= 20.00 H C-Reactive Protein 01/25/23 01/25/23 02:44 02:44 PT 14.60 INR 1.10 APTT Fibrinogen Fibrin Degrad Products D-Dimer C-Reactive Protein 278.8 H ABG 01/24/23 01/24/23 01/25/23 04:54 17:01 03:30 Specimen Type Arterial Arterial Arterial Sample Site Brachial, right Brachial, right Brachial, right ABG pH 7.25 L 7.39 7.33 L ABG pCO2 33.0 L 35.4 39.4 ABG pO2 69.9 L 59.5 L 93.8 ABG HCO3 14.6 L 21.5 L 20.9 L ABG O2 Saturation 92.9 ABG Base Excess -11.6 L -3.0 L -4.6 L A-a O2 Gradient 32.5 H O2 Delivery Device Vent Vent Vent FiO2 30.0 50.0 50.0 Tidal Volume 0.40 0.40 0.45 PEEP 8.0 8.0 12.0 Microbiology 01/25/23 08:40 Blood Culture - Preliminary Blood SPECIMEN COLLECTED 01/25/23 08:29 Blood Culture - Preliminary Blood SPECIMEN COLLECTED 01/22/23 09:43 Urine Culture - Final Urine,Clean Catch Proteus mirabilis 01/23/23 10:43 Blood Culture - Preliminary Blood NEGATIVE TO DATE 01/23/23 10:22 Blood Culture - Preliminary Blood NEGATIVE TO DATE Cardiac Studies: Echocardiogram 01/23/23 Cardiac Event Monitor 10/05/21
[2023-01-25] MEDS: propofol 1,000 MG/100 ML INJ 18.25 MG IV (09:31)
--- NOTE | 2023-01-25 10:09 | XR_ITS ---
WS: [id number] EXAMINATION: XR chest 1V portable [id number] REASON FOR EXAM: sob COMPARISON: 01/24/2023. ORDER DATE: 01/25/2023 10:10 AM TECHNIQUE: A single, portable frontal chest x-ray was obtained. FINDINGS: Left basal atelectasis is again present. Endotracheal tube and PICC line in satisfactory position. There were many wires and electrode leads superimposing the chest. The enteric tube proximal sidehole is still remaining in the distal esophagus. The right IJ central line and unchanged right si ded PICC line terminating at the cavoatrial junction. XR/XR chest 1V portable [id number] IMPRESSION: Findings same as 01/24/2023. Recommend advancement of the enteric tube is feasib le.
--- NOTE | 2023-01-25 10:15 | PC.PHAR ---
meropenem adjusted per renal dosing policy 1g q8h with crcl 22 converts to 500 mg q12h
[2023-01-25 10:44] LABS: Adenovirus Not Detected (NOT DETECT); Chlamydia Pneumoniae Not Detected (NOT DETECT); Coronavirus 229E,HKU1,NL63,OC4 Not Detected (NOT DETECT); Human Metapneumovirus Not Detected (NOT DETECT); Human Rhinovirus/Enterovirus Not Detected (NOT DETECT); Influenza A Not Detected (NOT DETECT); Influenza A H1 Not Detected (NOT DETECT); Influenza A H1-2009 Not Detected (NOT DETECT); Influenza A H3 Not Detected (NOT DETECT); Influenza B Not Detected (NOT DETECT); Mycoplasma Pneumoniae Not Detected (NOT DETECT); Parainfluenza Virus Type 1 Not Detected (NOT DETECT); Parainfluenza Virus Type 2 Not Detected (NOT DETECT); Parainfluenza Virus Type 3 Not Detected (NOT DETECT); Parainfluenza Virus Type 4 Not Detected (NOT DETECT); Respiratory Syncytial Virus A Not Detected (NOT DETECT); Respiratory Syncytial Virus B Not Detected (NOT DETECT); SARS-COV-2 Not Detected (NOT DETECT)
--- NOTE | 2023-01-25 10:53 | PM.OP ---
Operative Report Date of procedure: January 25, 2023 Pre-op diagnosis: Bilateral ureteral obstruction, obstructive pyelonephritis post stenting Post-op diagnosis: Bilateral ureteral obstruction, obstructive pyelonephritis post stenting Procedure done: Cystoscopy, BILATERAL ureteral stent exchange Implants: 8.5 Cam[place]onian x 28 cm ureteral stents without strings Specimens removed/disposition: None Pathology: None Anesthesia: General Estimated blood loss: Minimal Urine output: Not measured Complications: None Findings: Stents removed without difficulty. No evidence of encrustation. Replaced 7 Cam[place]onian by 28 cm with 8.5 Cam[place]onian by 28 cm bilaterally. Drainage of a lot of high-pressure sediment from the left when the stent was placed Brief History: See consult note. Recently placed stents after removal of a lot of sediment from the left kidney. It appears that the stent reobstructed on the left and she is back now in the hospital with obstructive pyelonephritis and sepsis. Recommended take to the operating room for bilateral stent exchange with larger stents Procedure: After emergent evaluation examination and obtaining of informed consent she was taken to the operating suite on 01/25/2023 where general anesthesia was administered without difficulty after appropriate timeout was performed, SCDs confirmed to be functioning, preoperative antibiotics administered, beta-lázaro protocol confirmed. Prepped and draped in usual sterile fashion in dorsolithotomy position pain careful attention to voiding pressure points. 21 Cam[place]onian cystoscope with 30 degree lens was introduced into the urethral meatus and advanced to the bladder under videoscopy. Stents were not encrusted. A flexible tip guidewire was easily advanced up the left ureter next to the stent and the stent was withdrawn with grasping forceps. Cystoscope was then backloaded over the guidewire and a 8.5 Cam[place]onian by 28 cm double-pigtail stent was advanced over the guidewire through the cystoscope into appropriate position as confirmed via fluoroscopy and cystoscopy. Procedure was then duplicated on the opposite side. Stents were confirmed to be draining. There was fairly high pressure flow through the stent on the left side when it was placed. She was left intubated and returned to the ICU and fair condition PLANS: 1. She will still need at some point if she recovers from the infectious concerns reexamination of both ureters for residual sediment and fungal debris. 2. This was originally planned for 01/30/2023. That will be postponed until she recovers as long as the stents remain patent
[2023-01-25] MEDS: insulin glargine 100 units/1 mL 10 UNIT SUBCUT ×2 (12:28→23:24)
[2023-01-25] MEDS: lidocaine 2% INJ 20 mL INJECTION ×2 (12:28→16:40)
[2023-01-25] MEDS: meropenem 500 MG in sodium chloride 0.9% (plus) 50 ML 100 MG IV ×2 (12:29→22:17)
[2023-01-25 12:31] LABS: Glucose Point of Care 109 mg/dL (70-110)
[2023-01-25] MEDS: heparin, porcine 1,000 unit/mL INJ 10 mL 1000 UNIT IV (12:32)
[2023-01-25] MEDS: heparin, porcine 1,000 unit/mL INJ 10 mL 10000 UNIT INTRACATH (12:32)
[2023-01-25 13:13] LABS: Apprearance, Bronch Wash Cloudy (CLEAR); Color, Bronc Wash White; Cyto Order Verification No Order; Total Cells Counted Bronch 200
--- NOTE | 2023-01-25 13:29 | ANE.PACU2 ---
Inpatient post-anesthesia follow up: Airway intact: No Vital signs: Temperature 99.1 F Pulse Rate 97 Respiratory Rate 14 Blood Pressure 90/62 Pulse Oximetry 94 Oxygen Delivery Me thod Mechanical Ventila tion Oxygen Flow Rate 2 Fraction of Inspir ed Oxygen 40 Hydration adequate: Yes Nausea and vomiting: No Pain level: 1 Mental status: Altered
[2023-01-25 13:36] LABS: WBC Within 10% 10
[2023-01-25 13:37] LABS: PATH Referral Yes
[2023-01-25] MEDS: alteplase 1 mg/mL SDV 2 mL 2 MG INTRACATH (13:59)
--- NOTE | 2023-01-25 13:59 | PC.PHAR ---
Pharmacy to dose vancomycin (PolicyStat ID: [id number]) Calculated dose (rounded):1500 Calculated frequency: Q48H Trough values drawn before doses 3-5: DRAW RANDOM WITH AM LABS, PT RECEIVING DIALYSIS TODAY
--- NOTE | 2023-01-25 14:15 | PM.PN ---
Subjective Subjective: remains on vent Medications: Reviewed: Yes Vitals/I&O/Wt Last Vital Signs Temp 99.4 F 01/25/23 20:00 Pulse 102 H 01/25/23 20:30 Resp 14 01/25/23 23:41 BP 88/58 01/25/23 20:30 Pulse Ox 100 01/25/23 23:41 O2 Del Method 01/25/23 08:00 O2 Flow Rate 2 01/23/23 04:00 FiO2 40 01/25/23 23:41 01/25/23 01/25/23 01/26/23 14:59 22:59 06:59 Intake Total 3298.392 / 3298.392 200 / 3498.392 Output Total 200 / 200 Balance 3298.392 / 3298.392 0 / 3298.392 Weight last 48 hrs Weight 108.9 kg Physical Exam Narrative: intubated , sedated Urinary Catheter Management: Suprapubic: Cath Placed During This Visit: no Reason for Continuing Indwelling Catheter: Accurate Measurement of Urinary Output in Critically Ill Patients Data 01/25/23 02:44 01/25/23 02:44 Micro: Microbiology 01/23/23 Unknown Wound Culture - Preliminary Other Source 01/23/23 Unknown Gram Stain - Final Sputum - Endotracheal Tube Aspirate Sputum Culture - Preliminary Gram Negative Rods 01/23/23 Unknown Urine Culture - Preliminary Urine Suprapubic Coag positive Staphylococcus 01/25/23 08:40 Blood Culture - Preliminary Blood SPECIMEN COLLECTED 01/25/23 08:29 Blood Culture - Preliminary Blood SPECIMEN COLLECTED A&P Assessment and plan (1) CKD (chronic kidney disease): Plan 1. Acute on chronic kidney disease stage III: Patient's baseline creatinine is in the 2 range now with a creatinine of 4.1. . EFREN likely from ATN from sepsis/hypotension. -Due to volume overload and metabolic acidosis , and oliguria- initiated hemodialysis. s/p HD catheter placement and started HD -Avoid IV contrast studies and nephrotoxins 2. Metabolic acidosis: improved 3. Hyponatremia: improved 4. Acute respiratory failure: Intubated and sedated 5. Acute pyelonephritis, patient with history of recurrent pyelonephritis: On antibiotics per primary team 6. History of ureteral stents, neurogenic bladder with suprapubic catheter Attestations Medical Necessity Statement*: Patient requires hospitalization, Coding Level of Care Code Acute Code for Chg Fwd Diagnoses CKD (chronic kidney disease) N18.9
[2023-01-25] MEDS: propofol 1,000 MG/100 ML INJ 19.6 MG IV ×2 (15:18→20:32)
--- NOTE | 2023-01-25 15:30 | P.PN_ITS ---
Subjective Subjective: Patient was seen this morning, nursing staff at bedside, pulmonary bedside, patient has had fever episodes throughout the night, no hypotensive episodes, he is on 50% FiO2, remains intubated, sedated on mechanical ventilation, spoke to urology about patient's persistent fevers, left hydronephrosis, plans on follow-up out of patient's bilateral ureteral stent as a possible etiology of her fevers, spoke to pulmonary, plans on bronchoscopy today Vitals/I&O/Wt Last Vital Signs Temp 99.1 F 01/25/23 11:00 Pulse 97 01/25/23 12:00 Resp 14 01/25/23 14:35 BP 90/62 01/25/23 12:00 Pulse Ox 96 01/25/23 14:35 O2 Del Method 01/25/23 08:00 O2 Flow Rate 2 01/23/23 04:00 FiO2 45 01/25/23 14:35 01/25/23 01/25/23 01/25/23 06:59 14:59 22:59 Intake Total 293.722 / 7098.266 0944.392 / 3298.392 Balance 293.722 / -2075.278 3298.392 / 3298.392 Weight last 48 hrs Weight 108.9 kg Physical Exam Const: COMMON NORMALS: no acute distress OTHER: - Intubated, sedated on mechanical ventilation -Endotracheal tube in place -Right PICC line in place -Dialysis catheter in place, IJ Resp: COMMON NORMALS: normal respiratory effort, No retractions, No use of accessory muscles and clear to auscultation bilaterally AUSCULTATION: clear to auscultation bilaterally Cardio: COMMON NORMALS: regular rate, regular rhythm, S1 normal heart sound present and S2 normal heart sound present RATE: regular rate RHYTHM: regular rhythm HEART SOUNDS: S1 normal heart sound present and S2 normal heart sound present GI: COMMON NORMALS: Normal to inspection, nondistended, normoactive bowel sounds present and non-tender Extremity: COMMON NORMALS: no pedal edema Psych: COMMON NORMALS: mental status grossly normal Skin: NARRATIVE SKIN EXAM: Sacral decubitus ulcer, measuring 3 x 3 cm irregular borders, blanching, Urinary Catheter Management: Suprapubic: Cath Placed During This Visit: no Reason for Continuing Indwelling Catheter: Accurate Measurement of Urinary Output in Critically Ill Patients Data 01/25/23 02:44 01/25/23 02:44 Micro: Microbiology 01/23/23 Unknown Gram Stain - Final Sputum - Endotracheal Tube Aspirate Sputum Culture - Preliminary Gram Negative Rods 01/23/23 Unknown Urine Culture - Preliminary Urine Suprapubic Coag positive Staphylococcus 01/25/23 08:40 Blood Culture - Preliminary Blood SPECIMEN COLLECTED 01/25/23 08:29 Blood Culture - Preliminary Blood SPECIMEN COLLECTED 01/22/23 09:43 Urine Culture - Final Urine,Clean Catch Proteus mirabilis 01/23/23 10:43 Blood Culture - Preliminary Blood NEGATIVE TO DATE 01/23/23 10:22 Blood Culture - Preliminary Blood NEGATIVE TO DATE A&P Assessment and plan (1) Sepsis: (2) Acute encephalopathy: (3) Acute respiratory failure with hypoxia: (4) Hydronephrosis, left: (5) NSTEMI (non-ST elevated myocardial infarction): (6) Metabolic acidosis: (7) Neurogenic bladder: (8) Diabetes mellitus, type II: (9) Dyslipidemia: (10) Acute kidney injury: (11) Acute pyelonephritis: (12) BMI 37.0-37.9, adult: (13) Suprapubic catheter: (14) Status post cystoscopy with ureteral stent placement: (15) CVA (cerebral vascular accident): (16) Deep tissue injury: (17) Metabolic acidosis: Plan Acute hypoxic respiratory failure -Secondary to pneumonia -Some component related to fluid overload and pulmonary edema Plan -Currently intubated, sedated on mechanical ventilation -Minimize FiO2, minimize tidal volume -Daily spontaneous breathing trials as requested -Propofol, and fentanyl and Versed for sedation -Levophed to maintain MAP greater than 65 -Currently on broad-spectrum antibiotic therapy vancomycin, Zosyn -Fluconazole added for antifungal coverage -Follow repeat blood cultures, sputum cultures, urine cultures -Persistent fevers, will repeat blood cultures, sputum cultures, will undergo swap out of ureteral stents, bronchoscopy -Receiving dialysis -Full code -Heparin drip for DVT prophylaxis Possible aspiration, monitor chest x-rays, as above Acute encephalopathy, intubated, sedated, -Monitor mentation off sedation Acute pyelonephritis -On broad-spectrum antibiotic therapy vancomycin, Zosyn -Fluconazole added for antifungal coverage -We will undergo swap out of bilateral ureteral stent -Monitor urine cultures, monitor blood cultures -Tylenol for fevers -Monitor creatinine, monitor urine output Acute renal failure on chronic kidney disease -Likely multifactorial -From sepsis -From pyelonephritis -Renal ultrasound does show left hydronephrosis -CT abdomen pelvis shows ?Bilateral ureteral stents in good position with bilateral moderate renal pelvic dilatation. -Spoke to Dr. Gama, he will monitor, given elevated EFREN, if worsening renal function and persistent fevers and sepsis, he will consider change out of her ureteral stents -Nephrology has been consulted, will undergo swap out of bilateral ureteral stents -Avoid nephrotoxic agents -Monitor creatinine, monitor urine output -Spoke to nephrology, plans on dialysis today, spoke to pulmonary, plans on dialysis catheter placement Metabolic acidosis, secondary acute renal failure Sepsis, secondary to acute pyelonephritis Persistent fevers, as above Status post cystoscopy with ureteral stent placement -Had bilateral ureteral stents placed January 14, [address] Gama -CT abdomen pelvis shows ?Bilateral ureteral stents in good position with bilateral moderate renal pelvic dilatation. -Spoke to Dr. Gama, he will monitor, given elevated EFREN, if worsening renal function and persistent fevers and sepsis, he will consider change out of her ureteral stents -Spoke to Dr. Gama today, white count is decreasing, fever trend is increasing, will undergo swap out bilateral ureteral stents Suprapubic catheter in place -Monitor Hypertension, hold blood pressure medication Hyperglycemia with type 2 diabetes mellitus -Lantus 10 units every 12 hours -Monitor sliding scale History of CVA -History of multiple CVAs -With left hemiparesis, requires assistance with most ADLs -Can feed herself of the right hand -Chronically on Plavix History of seizures, continue Topamax Sacral decubitus ulcer stage I present on admission, continue to monitor a possible source of infection, will consider repeat CAT scan if fever trend does not improve Obesity Spoke to urology, spoke to nephrology, urology, spoke to pulmonary, spoke to nursing staff Attestations Medical Necessity Statement*: Patient requires hospitalization for persistent fevers, acute renal failure, acute pyelonephritis, acute renal failure Coding Level of Care Code Critical Care >/= 30 minutes Critical care time (in minutes): 50 The high probability of a clinically significant, sudden or life threatening deterioration, as referenced in this documentation, required my full and direct attention, intervention and personal management. The critical care time shown is in addition to time spent performing any reported separately billable procedures and includes the following: [x] Data and vital sign review and interpretation [x ] Patient assessment, examination and intervention [x] Medication orders and management [x] Patient/Family updates as able [x] Care Coordination and D ocumentation. Diagnoses Sepsis A41.9 Acute encephalopathy G93.40 Acute respiratory failure with hypoxia J96.01 Hydronephrosis, left N13.30 NSTEMI (non-ST elevated myocardial infarction) I21.4 Metabolic acidosis E87.20 Neurogenic bladder N31.9 Diabetes mellitus, type II E11.9 Dyslipidemia E78.5 Acute kidney injury N17.9 Acute pyelonephritis N10 BMI 37.0-37.9, adult Z68.37 Suprapubic catheter Z93.59 Status post cystoscopy with ureteral stent placement Z96.0 CVA (cerebral vascular accident) I63.9 Deep tissue injury T14.8XXA Metabolic acidosis E87.20
[2023-01-25 16:44] LABS: Glucose Point of Care 132 mg/dL (70-110)
--- NOTE | 2023-01-25 16:44 | PC.SOCIAL ---
IMM IMM not updated with family. Pt is intubated, & is not expected to d/c in the next 24-48hrs. A copy was provided & left at bedside for family to review. Initialed, dated & timed a copy & placed in chart.
--- NOTE | 2023-01-25 17:03 | P.PN_ITS ---
Subjective Subjective: Patient seen multiple times today at bedside -Hemodynamically stable FiO2 remained at 50% but she is saturating 100% on monitor-we can titrate down FiO2 Remains intubated and sedated. Given her persistent fever spikes and pyelonephritis-urology were consulted and performed bilateral ureteral stent exchange Vitals/I&O/Wt Last Vital Signs Temp 99.1 F 01/25/23 11:00 Pulse 90 01/25/23 16:00 Resp 14 01/25/23 16:29 BP 90/51 01/25/23 16:00 Pulse Ox 96 01/25/23 16:29 O2 Del Method 01/25/23 08:00 O2 Flow Rate 2 01/23/23 04:00 FiO2 45 01/25/23 16:29 01/25/23 01/25/23 01/25/23 06:59 14:59 22:59 Intake Total 293.722 / 1582.888 3507.392 / 3298.392 Balance 293.722 / -2075.278 3298.392 / 3298.392 Weight last 48 hrs Weight 240 lb 1.334 oz Physical Exam Narrative: PHYSICAL EXAM: General: lying in bed, sedated and intubated. HEENT:NCAT, PERRLA, EOMI Neck: Supple Lungs: Coarse crackles especially in left lower lung zone Heart: s1/s2, RRR Abd: soft, NT, ND, BS + Normoactive Extremities: No edema ENGINE BOSS: sedated and limited ENGINE BOSS exam possible. SKIN: no rash LDA: # CVC: Right arm PICC line 01/23/2023 # HD Cath : Right IJ hemodialysis catheter 01/24/2023 #Suprapubic Root: Urinary Catheter Management: Suprapubic: Cath Placed During This Visit: no Reason for Continuing Indwelling Catheter: Accurate Measurement of Urinary Output in Critically Ill Patients Data 01/25/23 02:44 01/25/23 02:44 Other Labs: Radiology Impressions Abdomen/Pelvis CT 01/22/23 10:07 Impression: 1. Bilateral ureteral stents in good position with bilateral moderate renal pelvic dilatation. 2. Negative for acute intra-abdominal or pelvic abnormalities. Renal Ultrasound 01/23/23 07:51 IMPRESSION: Moderate left hydronephrosis. Chest CTA 01/24/23 14:12 IMPRESSION: 1. No CT findings of pulmonary embolus. 2. Findings suggestive of bilateral pneumonia, particularly mid and lower lungs and more prominent posteriorly within the lower lungs. No significant associated pleural effusion. 3. Mild arteriosclerosis thoracic aorta and coronary artery calcification. 4. Endotracheal catheter and right internal jugular central venous catheter appear in good position. Tip of the nasogastric tube appears just distal to the GE junction and consider advancement. Chest X-Ray 01/25/23 10:09 IMPRESSION: Findings same as 01/24/2023. Recommend advancement of the enteric tube is feasible. Laboratory Results WBC 12.1 10^3/uL (4.0-10.0) H 01/25/23 02:44 RBC 3.21 10^6/uL (4.1-5.3) L 01/25/23 02:44 Hgb 8.5 g/dL (11.5-15.3) L 01/25/23 02:44 Hct 27.6 % (37.0-47.0) L 01/25/23 02:44 MCV 86.0 fl (81-99) 01/25/23 02:44 MCH 26.5 pg (28.0-34.0) L 01/25/23 02:44 MCHC 30.8 g/dL (30.0-36.0) 01/25/23 02:44 RDW 14.0 % (12.1-15.1) 01/25/23 02:44 Plt Count 254 10^3/cmm (130-400) 01/25/23 02:44 MPV 9.7 fL (7.4-10.4) 01/25/23 02:44 Neut % (Auto) 77.3 % 01/25/23 02:44 Lymph % (Auto) 11.4 % 01/25/23 02:44 Ballard % (Auto) 8.5 % 01/25/23 02:44 Eos % (Auto) 1.6 % 01/25/23 02:44 Baso % (Auto) 0.3 % 01/25/23 02:44 Neut # (Auto) 9.35 10^3/uL (1.8-7.7) H 01/25/23 02:44 Lymph # (Auto) 1.4 10^3/uL (0.8-4.8) 01/25/23 02:44 Ballard # (Auto) 1.0 10^3/uL (0.2-0.9) H 01/25/23 02:44 Eos # (Auto) 0.2 10^3/uL (0.0-0.8) 01/25/23 02:44 Baso # (Auto) 0.0 10^3/uL (0.0-0.1) 01/25/23 02:44 Nucleated RBC % (auto) 0 % 01/25/23 02:44 Nucleated RBCs # 0.0 /100WBC 01/25/23 02:44 PT 14.60 SECONDS (12.1-14.9) 01/25/23 02:44 INR 1.10 (0.8-1.2) 01/25/23 02:44 APTT 26.7 SECONDS (23.9-36.7) 01/24/23 20:37 Fibrinogen 895 mg/dL (174-498) H 01/24/23 20:37 Fibrin Degrad Products Pos, >=40 ug/mL (NEG) H 01/24/23 20:37 D-Dimer >= 20.00 ug/mIFEU (0-0.59) H 01/24/23 20:37 Specimen Type Arterial 01/25/23 03:30 Sample Site Brachial, right 01/25/23 03:30 ABG pH 7.33 (7.35-7.45) L 01/25/23 03:30 ABG pCO2 39.4 mmHg (35-45) 01/25/23 03:30 ABG pO2 93.8 mmHg (80.0-100.0) 01/25/23 03:30 ABG HCO3 20.9 mmol/L (22-26) L 01/25/23 03:30 ABG O2 Saturation 92.9 01/24/23 17:01 ABG Base Excess -4.6 mmol/L (-2.0-2.0) L 01/25/23 03:30 Mathieu Test N/a 01/25/23 03:30 A-a O2 Gradient 32.5 mmHg (5-10) H 01/24/23 17:01 Hematocrit 36.1 % (37-47) L 01/25/23 03:30 Hgb O2 Saturation 91.1 % (95-100) L 01/24/23 17:01 Carboxyhemoglobin 1.2 %THgb (0.4-20.1) 01/24/23 17:01 Methemoglobin 0.8 % (0.4-1.5) 01/24/23 17:01 Total Hemoglobin 10.0 g/dL (12-16) L 01/24/23 17:01 Sodium 142.0 mmol/L (131-143) 01/24/23 17:01 Potassium 2.9 mmol/L (3.5-5.0) L 01/24/23 17:01 Glucose 148.0 mg/dL (70-115) H 01/24/23 17:01 Ionized Calcium 1.1 mmol/L (1.1-1.4) 01/24/23 17:01 O2 Delivery Device Vent 01/25/23 03:30 FiO2 50.0 % 01/25/23 03:30 Tidal Volume 0.45 01/25/23 03:30 PEEP 12.0 cmH20 01/25/23 03:30 Delinquent Tax Collector Assistant ID Brian 01/25/23 03:30 Sodium 139 mmol/L (136-145) 01/25/23 02:44 Potassium 3.6 mmol/L (3.5-5.1) 01/25/23 02:44 Chloride 103 mmol/L (98-107) 01/25/23 02:44 Carbon Dioxide 21 mmol/L (22-29) L 01/25/23 02:44 Anion Gap 18.6 (5-19) 01/25/23 02:44 BUN 37 mg/dL (6-20) H 01/25/23 02:44 Creatinine 3.4 mg/dL (0.5-0.9) H 01/25/23 02:44 GFR Calculation 13.8 mL/min (90-130) L 01/25/23 02:44 Glucose 109 mg/dL (65-115) 01/25/23 02:44 POC Glucose 132 mg/dL (70-110) H 01/25/23 16:41 Calculated Osmolality 297 mOsm/kg (285-295) H 01/25/23 02:44 Lactic Acid 1.5 mmol/L (0.5-2.2) 01/22/23 09:53 Lactate 0.8 mmol/L (0.5-2.2) 01/25/23 02:44 Calcium 7.6 mg/dL (8.5-10.5) L 01/25/23 02:44 Phosphorus 4.4 mg/dL (2.5-4.5) 01/25/23 02:44 Magnesium 1.7 mg/dL (1.7-2.3) 01/25/23 02:44 Total Bilirubin 0.2 mg/dL (0.15-1.2) 01/25/23 02:44 AST 9 U/L (0-32) 01/25/23 02:44 ALT < 5 U/L (0-33) 01/25/23 02:44 Alkaline Phosphatase 68 U/L (35-105) 01/25/23 02:44 Creatine Kinase 72 U/L (26-192) 01/25/23 02:44 Troponin T Baseline 44 ng/L (0-10) H 01/23/23 08:04 Troponin T 120 Minute 45.74 ng/L (0-10) H 01/23/23 10:22 Delta Troponin T 1.74 ABS# (0-10) 01/23/23 10:22 Troponin T Hi Sens 6Hr 50.27 ng/L (0-10) H 01/23/23 14:09 Troponin T Hi Sens 6Hr Delta 6.27 ng/L (0-12) 01/23/23 14:09 C-Reactive Protein 278.8 mg/L (0.0-4.9) H 01/25/23 02:44 NT-Pro-B Natriuret Pep 3633 pg/mL (0-125) H 01/25/23 02:44 Total Protein 6.3 g/dL (6.6-8.7) L 01/25/23 02:44 Albumin 2.6 g/dL (3.5-5.2) L 01/25/23 02:44 Globulin 3.7 g/dL (1.3-4.6) 01/25/23 02:44 Procalcitonin 9.30 ng/mL (0-0.5) H 01/25/23 02:44 Urine Color Yellow (Yellow) 01/22/23 09:43 Urine Appearance Cloudy (CLEAR) A 01/22/23 09:43 Urine pH 8 (5-7) H 01/22/23 09:43 Ur Specific [place] 1.015 (1.005-1.030) 01/22/23 09:43 Urine Protein 1+ (Negative) H 01/22/23 09:43 Urine Glucose (UA) Norm (Normal) 01/22/23 09:43 Urine Ketones Negative (Negative) 01/22/23 09:43 Urine Blood 3+ (Negative) H 01/22/23 09:43 Urine Nitrate Negative (Negative) 01/22/23 09:43 Urine Bilirubin Neg (Negative) 01/22/23 09:43 Prot Sulfosalicylic Acd Positive (Negative) 01/22/23 09:43 Urine Urobilinogen Norm mg/dL (Negative) 01/22/23 09:43 Ur Leukocyte Esterase 2+ (Negative) H 01/22/23 09:43 Urine RBC 10-15 /hpf (0-2) H 01/22/23 09:43 Urine WBC >100 /hpf (0-5) H 01/22/23 09:43 Ur Squamous Epith Cells 0-4 /hpf (0-5) H 01/22/23 09:43 Amorphous Sediment Not Reportable 01/22/23 09:43 Urine Bacteria 1+ /hpf (NONE) H 01/22/23 09:43 Urine Mucus 3+ /hpf 01/22/23 09:43 Nasal Influ A H1 2008 PCR Not detected (NOT DETECT) 01/25/23 08:45 Bronch Specimen Source Left lower lobe 01/25/23 12:50 Bronchial Fluid Color White 01/25/23 12:50 Bronchial Fluid Appearance Cloudy (CLEAR) 01/25/23 12:50 Bronchial Fluid WBC 1160 /uL 01/25/23 12:50 Bronchial Fluid RBC 12 10^3/uL 01/25/23 12:50 Bronch Cells Counted 200 01/25/23 12:50 Bronchial Neutrophils 97.00 % (0.9-2.3) H 01/25/23 12:50 Bronchial Lymphocytes 2.00 % (10.71-12.91) L 01/25/23 12:50 Bronchial Macrophages 1.00 % (83.6-86.8) L 01/25/23 12:50 Bronchial Diff Comment Yes 01/25/23 12:50 Serum Ketones Negative (Negative) 01/22/23 09:16 Adenovirus (PCR) Not detected (NOT DETECT) 01/25/23 08:45 C. pneumoniae DNA (PCR) Not detected (NOT DETECT) 01/25/23 08:45 Coronavirus 229E (PCR) Not detected (NOT DETECT) 01/25/23 08:45 Hep Bs Antigen Non-reactive (Nonreactive) 01/24/23 11:27 Hep Bs Antibody 3.5 (11.5-1000) L 01/24/23 11:27 Hep B Core Total Ab Non-reactive (Nonreactive) 01/24/23 11:27 Hepatitis C Antibody Non-reactive (Nonreactive) 01/24/23 11:27 Human Metapneumovir PCR Not detected (NOT DETECT) 01/25/23 08:45 Influenza A (H1) PCR Not detected (NOT DETECT) 01/25/23 08:45 Influenza A (H3) PCR Not detected (NOT DETECT) 01/25/23 08:45 Influenza Type A Ag negative (Negative) 01/22/23 11:02 Influenza Type A (PCR) Not detected (NOT DETECT) 01/25/23 08:45 Influenza Type B Ag negative (Negative) 01/22/23 11:02 Influenza Type B (PCR) Not detected (NOT DETECT) 01/25/23 08:45 M. pneumoniae (PCR) Not detected (NOT DETECT) 01/25/23 08:45 Parainfluenza 1 (PCR) Not detected (NOT DETECT) 01/25/23 08:45 Parainfluenza 2 (PCR) Not detected (NOT DETECT) 01/25/23 08:45 Parainfluenza 3 (PCR) Not detected (NOT DETECT) 01/25/23 08:45 Parainfluenza 4 (PCR) Not detected (NOT DETECT) 01/25/23 08:45 RSV Type A (PCR) Not detected (NOT DETECT) 01/25/23 08:45 RSV Type B (PCR) Not detected (NOT DETECT) 01/25/23 08:45 Entero/Rhino (PCR) Not detected (NOT DETECT) 01/25/23 08:45 SARS-CoV-2 (PCR) Not detected (NOT DETECT) 01/25/23 08:45 Micro: Microbiology 01/23/23 Unknown Wound Culture - Preliminary Other Source 01/23/23 Unknown Gram Stain - Final Sputum - Endotracheal Tube Aspirate Sputum Culture - Preliminary Gram Negative Rods 01/23/23 Unknown Urine Culture - Preliminary Urine Suprapubic Coag positive Staphylococcus 01/25/23 08:40 Blood Culture - Preliminary Blood SPECIMEN COLLECTED 01/25/23 08:29 Blood Culture - Preliminary Blood SPECIMEN COLLECTED 01/22/23 09:43 Urine Culture - Final Urine,Clean Catch Proteus mirabilis A&P Assessment and plan (1) Acute encephalopathy: (2) Acute respiratory failure with hypoxia: (3) CVA (cerebral vascular accident): (4) Acute kidney injury: (5) Diabetes mellitus, type II: (6) Neurogenic bladder: (7) Status post cystoscopy with ureteral stent placement: (8) Metabolic acidosis: (9) Acute pyelonephritis: (10) CKD (chronic kidney disease): Plan ASSESSMENT/PLAN:Overall: 57-year-old Ms. Erika Shen with multiple CVAs with left hemiplegia, dependent on ADLs, neurogenic bladder s/p suprapubic catheter, recurrent UTIs, diabetes, CKD presented to emergency room with altered mental status, nausea, vomiting- found to be in sepsis based on labs-urine cultures growing persistent Proteus resistant to ciprofloxacin nitrofurantoin and tetracycline-went into acute hypo xic respiratory failure-secondary to fluid overload/aspiration pneumonia prompting intubation and mechanical ventilation support and developing sepsis induced EFREN on CKD stage III-prompting to start hemodialysis. NEURO: DIAGNOSIS-PLAN: {neuro:92344} #Altered mental status-secondary to recurrent UTI/aspiration pneumonia -Currently intubated/sedated on propofol 40 mcg/hour-added fentanyl 100 mcg/hour for pain and sedation -Titrate to achieve RASS -2 #History of multiple CVAs-with residual left hemiplegia -At baseline patient is dependent on ADLs -She is on Plavix and statin PULM: {PULMICU:94093} #Acute hypoxic respiratory failure-secondary to fluid overload/aspiration pneumonia -CTA 01/24/2023-did not show any evidence of PE, however showed left lower lobe consolidation -Ventilator settings CMV 400/14/PEEP 12/ 40% FiO2 -Patient is currently on hemodialysis for fluid removal-is scheduled to receive dialysis session today -Patient is covered with vancomycin and Zosyn for aspiration pneumonia-sputum cultures positive for gram-negative rods CVS: #Hemodynamically stable -Echocardiogram 01/23/2023-normal GI: {Gastro ICU:95817} #Diet: TF nephro #GI prophylaxis #PPI #LFTs: Within normal limits #RENAL: {Renal ICU:98608} #EFREN on CKD stage III -Worsening renal function and decreasing urine output -Nephrology on board -Hemodialysis catheter placed 01/24/2023-had 1 session of hemodialysis-after 2.5 hours and removing 2 L-catheter got clogged and has to terminate hemodialysis yesterday-today she is pending for another session of hemodialysis -Monitor BUN, creatinine, urine output, electrolytes #complicated urological history with neurogenic bladder, stones, suprapubic catheter as well as recurrent obstructive pyelonephritis.? - s/p cystoscopy with left ureteroscopy and left-sided laser lithotripsy with left ureteral stent placement along with removal of a prior right ureteral stent followed by introduction of a new stent and changing of her suprapubic catheter on January 14, 2023.? -Today she underwent bilateral ureteral stent exchange HEM: #Leukocytosis-trending down after starting antibiotics #Normal platelets ENDO: #Diabetes -Currently on insulin -moderately controlled sugars -Monitor and adjust insulin scale coverage accordingly ID: #Persistent Proteus obstructive pyelonephritis #Suspected aspiration pneumonia-sputum cultures positive for gram-negative rods -DIC panel showed normal fibrinogen but there were FDP -Currently patient is covered with vancomycin and Zosyn -Blood cultures negative so far -Patient underwent bronchoscopy 01/25/2023 and noted mucous plugs in left airw ays-which were suctioned right away. Cell count is neutrophil predominant and cultures are pending -Currently hemodynamically stable without pressors -Monitor fever curve and white count Code Status: Full code Disposition: ICU Critically ill:{Critical illness:86594} yes MD discussed with: {Discussed with:96785} hospitalist, RT, RN taking care of the patient ICU CHECKLIST: Problem list updated Verbal orders reviewed and signed Analgesia: Fentanyl Glycemic Control: Insulin Nutrition: ok to start TF nephro Restraint Renewal (within 24 hrs): {YES:17312} Ulcer Prophylaxis: PPI Chemical Thromboprophylaxis: Prophylaxis: Heparin Mechanical Thromboprophylaxis: scds Need for Central line: yes for multiple medications Need for Root catheter: Yes Attestations Medical Necessity Statement*: Intubated for hypoxic respiratory failure; on hemodialysis for renal failure-need close ICU monitoring Time Spent in Patient Care: Greater than 35 minutes (>than 50% of time spent in counselling and/or direct pt care on unit) . Critical Care Time: This patient has a high probability of? clinically sig nificant, sudden o r life threatening deterioration of the patient's (pul monary, neurologic al, renal, endocri ne) systems requir ed my full, direct attention, the hi wilverest level of jesús bradley preparednes s for urgent inter vention and person al management.? I managed/supervised life or organ sup porting interventi ons that required frequent physician assessment.? I de voted my full atte ntion in the ICU t o the direct care of this patient fo r the period of ti me indicated above .? Time I spent wi th family or surro gate(s) is include d only if the haresh ent was incapable of providing neces ozzie information o r participating in decision making.? This time includ es the following s eranel provided: Telemetry review Mechanical Ventila tion Hemodynamic i nterpretation, ass essment and manage ment Review and in terpretation of CX R Review and inter pretation of lab v alues Review and i nterpretation of m icrobiologic data and culture result s Review of medica tions and administ ration Review and interpretation of Nutrition requirem ents and managemen t Discussion of miko dominguez with othe r consultants and services Clinical update to family m embers [x] Data a nd vital sign revi ew and interpretat ion [x] Patient as sessment, examinat ion and interventi on [x] Documentati on [x] Medication orders and managem ent Time spent fo r teaching as well as performing pro cedures are billed separately and is not included in t his note ? Critica l Care Time (min): 52 Coding Level of Care Code Acute Code for [facility] Fwd Diagnoses Acute encephalopathy G93.40 Acute respiratory failure with hypoxia J96.01 CVA (cerebral vascular accident) I63.9 Acute kidney injury N17.9 Diabetes mellitus, type II E11.9 Neurogenic bladder N31.9 Status post cystoscopy with ureteral stent placement Z96.0 Metabolic acidosis E87.20 Acute pyelonephritis N10 CKD (chronic kidney disease) N18.9 Time Spent (min) 52
--- NOTE | 2023-01-25 17:12 | P.PCN_ITS ---
Procedure/Consent Time out: Time Out Performed: Yes Consent: Consent for Procedure: Consent obtained from other (indicate) Procedure Narrative: Procedure : 96603 Dx Bronchoscope w/BAL ? 69391 Bronchoscopy w/ therapeutic aspiration of the tracheobronchial tree (clearance of airway secretions, removal of mucus plugs) 78875 Moderate sedation, initial 15 min Pre-Operative Diagnosis: Pneumonia Post-Operative Diagnosis: Same Indication: Chest x-ray showing left lung atelectasis Brief History: 57-year-old . Erika Shen with multiple CVAs with left hemiplegia, dependent on ADLs, neurogenic bladder s/p suprapubic catheter, recurrent UTIs, diabetes, CKD presented to emergency room with altered mental status, nausea, vomiting- found to be in sepsis based on labs-urine cultures growing persistent Proteus resistant to ciprofloxacin nitrofurantoin and tetracycline-went into acute hypoxic respiratory failure-secondary to fluid overload/aspiration pneumonia prompting intubation and mechanical ventilation support and developing sepsis induced EFREN on CKD stage III-prompting to start hemodialysis. Patient had persistent fevers-chest x-ray showing persistent left lower lobe atelectasis-suspected mucous plug/pneumonia Pre-procedure Evaluation: Patient was evaluated clinically and ancillary testing reviewed. The risk of having active MTB infection is very low in my clinical judgement. ASA: 4 Malampati score: unable to evaluate due to presence of endotracheal tube Indication: CT evidence of left lower lobe atelectasis Time out: Performed by the procedure team and nursing staff.? Vent support maintained on Fio2 100.? Anesthesia: Patient is already intubated and sedated with fentanyl GTT,, propofol gtt., titrated to achieve adequate sedation?(98930) Local anesthesia: The gilda, right and left mainstem bronchi were anesthetized with 1 mL 1% lidocaine at each site. Summary of Significant Findings: -The bronchoscope was advanced through the ET tube.? The lower trachea mucosa appeared normal, no endotracheal lesion was seen.? The gilda was sharp.? The gilda, the right and left mainstem bronchi are anesthetized with 1% lidocaine. In a systematic manner bilateral bronchial tree was then examined.? The bronchoscope was advanced into the left mainstem bronchus.? The mucosa appeared normal with no endobronchial lesions.? The left upper lobe, lingula and left lower lobe bronchi were examined up to the third subsegmental level.? There was thick mobile mucous partially obstructing left lower lobe bronchus, easily suctioned (19784).? Mucosa appeared normal with no endobronchial lesion, active bleeding.? There were thick mucus secretions in left lower lobe-which were suctioned right away.(03897)? The bronchoscope was then introduced into the right mainstem bronchus.? The right upper lobe, right middle lobe and right lower lobe bronchi were examined up to the third subsegmental level. The mucosa appeared normal with no endobronchial lesions, active bleeding.? There were some secretions in the right lower lobes which were?suctioned right away(86838). The bronchoscope was wedged at the entrance of medial segment of left lower lobe-30 cc normal saline was instilled-aspirated 20 cc blood mixed bronchoalveolar lavage return.(59737) Estimated Blood Loss: None ? Specimens: Bronchoalveolar lavage (23163) from left lower lobe sent for cultures, fluid analysis, ? Complications:None; patient tolerated the procedure well. ? Disposition: Patient remains critically ill, intubated and stays in ICU Surgeon: Stevie Dang MD, FCCP? Pulmonary critical Care Medicine [facility] Acute Procedures Epistaxis Control: Time out performed: Yes
--- NOTE | 2023-01-25 18:06 | PC.NURSE ---
uneventful shift. patient did receive bronchoscopy by Dr. Dagn. Patient also went to OR for bilateral ureteral stent placement by Dr. Gama.
[2023-01-25 20:32] LABS: Glucose Point of Care 111 mg/dL (70-110)
[2023-01-26] VITALS (57 sets, daily range): BP systolic 79–132; BP diastolic 42–84; PULSE 101–111; RESP 14–18; TEMP 37.4–38.2; O2SAT 93–100
[2023-01-26] MEDS: propofol 1,000 MG/100 ML INJ 16.34 MG IV (02:00)
[2023-01-26 06:11] LABS: Basophils % 0.4 %; Eosinophils # 0.2 10^3/uL (0.0-0.8); Eosinophils % 2.1 %; Hematocrit 29.2 % (37.0-47.0); Hemoglobin 8.3 g/dL (11.5-15.3); Lymphocytes # 1.7 10^3/uL (0.8-4.8); Lymphocytes % 15.3 %; Mean Corpuscular HGB Conc 28.4 g/dL (30.0-36.0); Mean Corpuscular Hemoglobin 25.5 pg (28.0-34.0); Mean Corpuscular Volume 89.8 fl (81-99); Mean Platelet Volume 9.8 fL (7.4-10.4); Monocytes # 0.8 10^3/uL (0.2-0.9); Monocytes % 7.4 %; Neutrophils # 8.33 10^3/uL (1.8-7.7); Neutrophils % 73.1 %; Nucleated Red Blood Cells % 0 %; Platelet Count 276 10^3/cmm (130-400); Red Blood Count 3.25 10^6/uL (4.1-5.3); Red Cell Distribution Width 14.7 % (12.1-15.1); White Blood Count 11.4 10^3/uL (4.0-10.0)
[2023-01-26] MEDS: clopidogrel 75 mg Tablet PO (06:11)
[2023-01-26] MEDS: heparin 5,000 unit/mL INJ 1 mL 5000 UNIT SUBCUT ×2 (06:11→18:08)
[2023-01-26] MEDS: topiramate 100 mg Tablet PO (06:11)
[2023-01-26 06:31] LABS: INR 1.15 (0.8-1.2)
[2023-01-26 06:33] LABS: Lactate (Lactic Acid level) 0.6 mmol/L (0.5-2.2); Vancomycin Random 19.8 ug/mL (20.0-40.0)
[2023-01-26 06:34] LABS: Alanine Aminotransferase 6 U/L (0-33); Albumin Level 2.6 g/dL (3.5-5.2); Alkaline Phosphatase 80 U/L (35-105); Aspartate Amino Transferase 15 U/L (0-32); Blood Urea Nitrogen 47 mg/dL (6-20); C Reactive Protein 331.5 mg/L (0.0-4.9); Calcium 7.3 mg/dL (8.5-10.5); Carbon Dioxide 14 mmol/L (22-29); Chloride 99 mmol/L (98-107); Globulin 3.8 g/dL (1.3-4.6); Glomerular Filtration Rate 9.5 mL/min (90-130); Glucose 106 mg/dL (65-115); Magnesium 1.8 mg/dL (1.7-2.3); Osmolality Calculated 299 mOsm/kg (285-295); Sodium 138 mmol/L (136-145); Total Bilirubin 0.2 mg/dL (0.15-1.2); Total Protein 6.4 g/dL (6.6-8.7)
[2023-01-26 06:43] LABS: NT Pro B Type Natriuretic Pept 3303 pg/mL (0-125)
[2023-01-26 07:00] LABS: Creatine Phosphokinase 451 U/L (26-192); Phosphorus 7.8 mg/dL (2.5-4.5)
--- NOTE | 2023-01-26 07:00 | XRR_ITS ---
PROCEDURE INFORMATION: Exam: XR Chest Exam date and time: 01/26/2023 7:51 AM Age: 58 years old Clinical indication: Shortness of breath; Additional info: SOB TECHNIQUE: Imaging protocol: Radiologic exam of the chest. Views: 1 view. COMPARISON: CR (CHEST, ) 01/23/2023 5:36 AM FINDINGS: Tubes, catheters and devices: The endotracheal tube is appropriately positioned in the distal thoracic trachea with the tip above the gilda. NG tube tip is 4 cm above the diaphragmatic hiatus. Lungs: There is minimal atelectasis in the lung bases. Pleural spaces: There is no pleural effusion or pneumothorax. Heart/Mediastinum: Cardiomediastinal contours are unremarkable. Bones/joints: Bones are unremarkable. XR/XR chest 1V portable [id number] IMPRESSION: 1. NG tube tip is 4 cm above the diaphragmatic hiatus. Tube should be advanced 15-20 cm for ideal position. 2. Satisfactory endotracheal tube. 3. Minimal atelectasis in the lung bases. Lungs are otherwise clear.
[2023-01-26 07:44] LABS: Glucose Point of Care 118 mg/dL (70-110)
[2023-01-26] MEDS: pantoprazole 40 mg SDV IVP ×2 (07:50→19:46)
[2023-01-26] MEDS: fluconazole premix 200 MG/100 ML PREMIX 100 MG IV (07:50)
--- NOTE | 2023-01-26 08:00 | PC.NURSE ---
New Orders Received Dr. Bazan at bedside, gave verbal orders to wean off Fentanyl and Versed.
--- NOTE | 2023-01-26 09:29 | PM.PN ---
Subjective Subjective: Urology follow-up: Postop day #1 bilateral ureteral stent exchange with larger stents. Tmax overnight was 100.8. Has been consistently tachycardic. Continues on broad-spectrum antibiotics and antifungal. White count trending downward since yesterday. Creatinine 4.7 this morning. Last evening she underwent bronchoscopy with aspiration due to atelectasis. Reviewed case with Dr. Bazan Discussed intermediate-term plans for repeat ureteroscopy to clean more the fungal sediment out. He also discussed with infectious disease antibiotic/antifungal coverage. Continue current plan. Vitals/I&O/Wt Last Vital Signs Temp 99.3 F 01/26/23 04:00 Pulse 105 H 01/26/23 05:48 Resp 14 01/26/23 08:24 BP 83/52 01/26/23 04:00 Pulse Ox 97 01/26/23 08:24 O2 Del Method 01/25/23 08:00 O2 Flow Rate 2 01/23/23 04:00 FiO2 40 01/26/23 08:24 01/25/23 01/26/23 01/26/23 22:59 06:59 14:59 Intake Total 200 / 3498.392 203.376 / 3701.768 Output Total 200 / 200 Balance 0 / 3298.392 203.376 / 3501.768 Weight last 48 hrs Weight 240 lb 1.334 oz Physical Exam Narrative: Sedated. Sleep Const: COMMON NORMALS: no acute distress Resp: COMMON NORMALS: normal respiratory effort, No retractions, No use of accessory muscles and clear to auscultation bilaterally AUSCULTATION: clear to auscultation bilaterally OTHER: Intubated Cardio: COMMON NORMALS: regular rate and regular rhythm RATE: regular rate RHYTHM: regular rhythm Psych: OTHER: Sedated Urinary Catheter Management: Suprapubic: Cath Placed During This Visit: no Reason for Continuing Indwelling Catheter: Accurate Measurement of Urinary Output in Critically Ill Patients Data 01/26/23 05:44 01/26/23 05:44 Micro: Microbiology 01/25/23 08:40 Blood Culture - Preliminary Blood NEGATIVE TO DATE 01/25/23 08:29 Blood Culture - Preliminary Blood NEGATIVE TO DATE 01/23/23 Unknown Wound Culture - Preliminary Other Source 01/23/23 Unknown Gram Stain - Final Sputum - Endotracheal Tube Aspirate Sputum Culture - Preliminary Gram Negative Rods 01/23/23 Unknown Urine Culture - Preliminary Urine Suprapubic Coag positive Staphylococcus A&P Assessment and plan (1) Bilateral ureteral obstruction: (2) Hydronephrosis, left: (3) Suprapubic catheter: (4) Neurogenic bladder: (5) Retained ureteral stent: Plan 1. Once recovers we will consider bilateral ureteroscopy to try to clear out as much ureteral and renal debris as possible to prevent recurrent obstruction. 2. See HPI Attestations Medical Necessity Statement*: See attending Coding Level of Care Code Acute Code for g Fwd Diagnoses Bilateral ureteral obstruction N13.5 Hydronephrosis, left N13.30 Suprapubic catheter Z93.59 Neurogenic bladder N31.9 Retained ureteral stent Z96.0
[2023-01-26 09:53] LABS: ABG PCO2 39.4 mmHg (35-45); ABG PH Result 7.14 (7.35-7.45); Arterial Blood Gas Hematocrit 29.8 % (37-47); Base Excess ABG -14.7 mmol/L (-2.0-2.0); Blood Gas Allen Test Pos; Blood Gas Operator Identificat GD; Blood Gas Sample Site Radial, right; Blood Gas Sample Type Arterial; Blood Gas Tidal Volume 0.45; HCO3 ABG 13.4 mmol/L (22-26); Oxygen Device VENT; PO2 ABG 90.4 mmHg (80.0-100.0)
[2023-01-26] MEDS: escitalopram 10 mg Tablet 20 MG PO (10:14)
[2023-01-26] MEDS: atorvastatin 40 mg Tablet PO (10:14)
[2023-01-26] MEDS: meropenem 500 MG in sodium chloride 0.9% (plus) 50 ML 100 MG IV ×2 (10:14→22:01)
[2023-01-26] MEDS: sodium bicarbonate 1 mEq/mL SDV 50mL 100 MEQ IVP (10:57)
[2023-01-26 12:50] LABS: Glucose Point of Care 143 mg/dL (70-110)
[2023-01-26] MEDS: insulin lispro 100 unit/1 mL SUBCUT (13:04)
--- NOTE | 2023-01-26 13:09 | P.PN_ITS ---
Subjective Subjective: -Patient seen today at bedside -intubated and sedated -Hemodynamically stable -FiO2 down 30% and PEEP down to 8 and saturating well - today will taper off sedation and do awakening trial - No overnight fever spikes - abg revealing metabolic acidosis and pt to have hemodialysis today; until then we will put her on bicarb drip -other labs and imaging reviewed Medications: Reviewed: Yes Vitals/I&O/Wt Last Vital Signs Temp 99.8 F H 01/26/23 10:00 Pulse 107 H 01/26/23 12:00 Resp 14 01/26/23 11:53 BP 101/53 01/26/23 12:00 Pulse Ox 96 01/26/23 12:00 O2 Del Method 01/26/23 10:00 O2 Flow Rate 2 01/23/23 04:00 FiO2 30 01/26/23 12:00 01/25/23 01/26/23 01/26/23 22:59 06:59 14:59 Intake Total 200 / 3498.392 203.376 / 3701.768 282.9 / 282.9 Output Total 200 / 200 Balance 0 / 3298.392 203.376 / 3501.768 282.9 / 282.9 Weight last 48 hrs Weight 240 lb 1.334 oz Physical Exam Narrative: PHYSICAL EXAM: General: lying in bed, sedated and intubated. 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 SKIN: no rash LDA: # CVC: Right arm PICC line 01/23/2023 # HD Cath : Right IJ hemodialysis catheter 01/24/2023 #Suprapubic Root: Urinary Catheter Management: Suprapubic: Cath Placed During This Visit: no Reason for Continuing Indwelling Catheter: Accurate Measurement of Urinary Output in Critically Ill Patients Data 01/26/23 05:44 01/26/23 05:44 Other Labs: Radiology Impressions Abdomen/Pelvis CT 01/22/23 10:07 Impression: 1. Bilateral ureteral stents in good position with bilateral moderate renal pelvic dilatation. 2. Negative for acute intra-abdominal or pelvic abnormalities. Renal Ultrasound 01/23/23 07:51 IMPRESSION: Moderate left hydronephrosis. Chest CTA 01/24/23 14:12 IMPRESSION: 1. No CT findings of pulmonary embolus. 2. Findings suggestive of bilateral pneumonia, particularly mid and lower lungs and more prominent posteriorly within the lower lungs. No significant associated pleural effusion. 3. Mild arteriosclerosis thoracic aorta and coronary artery calcification. 4. Endotracheal catheter and right internal jugular central venous catheter appear in good position. Tip of the nasogastric tube appears just distal to the GE junction and consider advancement. Chest X-Ray 01/26/23 07:00 IMPRESSION: 1. NG tube tip is 4 cm above the diaphragmatic hiatus. Tube should be advanced 15-20 cm for ideal position. 2. Satisfactory endotracheal tube. 3. Minimal atelectasis in the lung bases. Lungs are otherwise clear. Laboratory Results WBC 11.4 10^3/uL (4.0-10.0) H 01/26/23 05:44 RBC 3.25 10^6/uL (4.1-5.3) L 01/26/23 05:44 Hgb 8.3 g/dL (11.5-15.3) L 01/26/23 05:44 Hct 29.2 % (37.0-47.0) L 01/26/23 05:44 MCV 89.8 fl (81-99) 01/26/23 05:44 MCH 25.5 pg (28.0-34.0) L 01/26/23 05:44 MCHC 28.4 g/dL (30.0-36.0) L D 01/26/23 05:44 RDW 14.7 % (12.1-15.1) 01/26/23 05:44 Plt Count 276 10^3/cmm (130-400) 01/26/23 05:44 MPV 9.8 fL (7.4-10.4) 01/26/23 05:44 Neut % (Auto) 73.1 % 01/26/23 05:44 Lymph % (Auto) 15.3 % 01/26/23 05:44 Schley % (Auto) 7.4 % 01/26/23 05:44 Eos % (Auto) 2.1 % 01/26/23 05:44 Baso % (Auto) 0.4 % 01/26/23 05:44 Neut # (Auto) 8.33 10^3/uL (1.8-7.7) H 01/26/23 05:44 Lymph # (Auto) 1.7 10^3/uL (0.8-4.8) 01/26/23 05:44 Schley # (Auto) 0.8 10^3/uL (0.2-0.9) 01/26/23 05:44 Eos # (Auto) 0.2 10^3/uL (0.0-0.8) 01/26/23 05:44 Baso # (Auto) 0.0 10^3/uL (0.0-0.1) 01/26/23 05:44 Nucleated RBC % (auto) 0 % 01/26/23 05:44 Nucleated RBCs # 0.0 /100WBC 01/26/23 05:44 PT 15.10 SECONDS (12.1-14.9) H 01/26/23 05:44 INR 1.15 (0.8-1.2) 01/26/23 05:44 APTT 26.7 SECONDS (23.9-36.7) 01/24/23 20:37 Fibrinogen 895 mg/dL (174-498) H 01/24/23 20:37 Fibrin Degrad Products Pos, >=40 ug/mL (NEG) H 01/24/23 20:37 D-Dimer >= 20.00 ug/mIFEU (0-0.59) H 01/24/23 20:37 Specimen Type Arterial 01/26/23 09:35 Sample Site Radial, right 01/26/23 09:35 ABG pH 7.14 (7.35-7.45) L* 01/26/23 09:35 ABG pCO2 39.4 mmHg (35-45) 01/26/23 09:35 ABG pO2 90.4 mmHg (80.0-100.0) 01/26/23 09:35 ABG HCO3 13.4 mmol/L (22-26) L 01/26/23 09:35 ABG O2 Saturation 92.9 01/24/23 17:01 ABG Base Excess -14.7 mmol/L (-2.0-2.0) L 01/26/23 09:35 Mathieu Test Pos 01/26/23 09:35 A-a O2 Gradient 32.5 mmHg (5-10) H 01/24/23 17:01 Hematocrit 29.8 % (37-47) L 01/26/23 09:35 Hgb O2 Saturation 91.1 % (95-100) L 01/24/23 17:01 Carboxyhemoglobin 1.2 %THgb (0.4-20.1) 01/24/23 17:01 Methemoglobin 0.8 % (0.4-1.5) 01/24/23 17:01 Total Hemoglobin 10.0 g/dL (12-16) L 01/24/23 17:01 Sodium 142.0 mmol/L (131-143) 01/24/23 17:01 Potassium 2.9 mmol/L (3.5-5.0) L 01/24/23 17:01 Glucose 148.0 mg/dL (70-115) H 01/24/23 17:01 Ionized Calcium 1.1 mmol/L (1.1-1.4) 01/24/23 17:01 O2 Delivery Device Vent 01/26/23 09:35 FiO2 30.0 % 01/26/23 09:35 Tidal Volume 0.45 01/26/23 09:35 PEEP 8.0 cmH20 01/26/23 09:35 Bus Repair Supervisor ID [id number] 01/26/23 09:35 Sodium 138 mmol/L (136-145) 01/26/23 05:44 Potassium 4.0 mmol/L (3.5-5.1) 01/26/23 05:44 Chloride 99 mmol/L (98-107) 01/26/23 05:44 Carbon Dioxide 14 mmol/L (22-29) L 01/26/23 05:44 Anion Gap 29.0 (5-19) H 01/26/23 05:44 BUN 47 mg/dL (6-20) H 01/26/23 05:44 Creatinine 4.7 mg/dL (0.5-0.9) H 01/26/23 05:44 GFR Calculation 9.5 mL/min (90-130) L 01/26/23 05:44 Glucose 106 mg/dL (65-115) 01/26/23 05:44 POC Glucose 143 mg/dL (70-110) H 01/26/23 12:46 Calculated Osmolality 299 mOsm/kg (285-295) H 01/26/23 05:44 Lactic Acid 1.5 mmol/L (0.5-2.2) 01/22/23 09:53 Lactate 0.6 mmol/L (0.5-2.2) 01/26/23 05:44 Calcium 7.3 mg/dL (8.5-10.5) L 01/26/23 05:44 Phosphorus 7.8 mg/dL (2.5-4.5) H* 01/26/23 05:44 Magnesium 1.8 mg/dL (1.7-2.3) 01/26/23 05:44 Total Bilirubin 0.2 mg/dL (0.15-1.2) 01/26/23 05:44 AST 15 U/L (0-32) 01/26/23 05:44 ALT 6 U/L (0-33) 01/26/23 05:44 Alkaline Phosphatase 80 U/L (35-105) 01/26/23 05:44 Creatine Kinase 451 U/L (26-192) H* 01/26/23 05:44 Troponin T Baseline 44 ng/L (0-10) H 01/23/23 08:04 Troponin T 120 Minute 45.74 ng/L (0-10) H 01/23/23 10:22 Delta Troponin T 1.74 ABS# (0-10) 01/23/23 10:22 Troponin T Hi Sens 6Hr 50.27 ng/L (0-10) H 01/23/23 14:09 Troponin T Hi Sens 6Hr Delta 6.27 ng/L (0-12) 01/23/23 14:09 C-Reactive Protein 331.5 mg/L (0.0-4.9) H 01/26/23 05:44 NT-Pro-B Natriuret Pep 3303 pg/mL (0-125) H 01/26/23 05:44 Total Protein 6.4 g/dL (6.6-8.7) L 01/26/23 05:44 Albumin 2.6 g/dL (3.5-5.2) L 01/26/23 05:44 Globulin 3.8 g/dL (1.3-4.6) 01/26/23 05:44 Procalcitonin 7.90 ng/mL (0-0.5) H 01/26/23 05:44 Urine Color Yellow (Yellow) 01/22/23 09:43 Urine Appearance Cloudy (CLEAR) A 01/22/23 09:43 Urine pH 8 (5-7) H 01/22/23 09:43 Ur Specific Brewster 1.015 (1.005-1.030) 01/22/23 09:43 Urine Protein 1+ (Negative) H 01/22/23 09:43 Urine Glucose (UA) Norm (Normal) 01/22/23 09:43 Urine Ketones Negative (Negative) 01/22/23 09:43 Urine Blood 3+ (Negative) H 01/22/23 09:43 Urine Nitrate Negative (Negative) 01/22/23 09:43 Urine Bilirubin Neg (Negative) 01/22/23 09:43 Prot Sulfosalicylic Acd Positive (Negative) 01/22/23 09:43 Urine Urobilinogen Norm mg/dL (Negative) 01/22/23 09:43 Ur Leukocyte Esterase 2+ (Negative) H 01/22/23 09:43 Urine RBC 10-15 /hpf (0-2) H 01/22/23 09:43 Urine WBC >100 /hpf (0-5) H 01/22/23 09:43 Ur Squamous Epith Cells 0-4 /hpf (0-5) H 01/22/23 09:43 Amorphous Sediment Not Reportable 01/22/23 09:43 Urine Bacteria 1+ /hpf (NONE) H 01/22/23 09:43 Urine Mucus 3+ /hpf 01/22/23 09:43 Nasal Influ A H1 2008 PCR Not detected (NOT DETECT) 01/25/23 08:45 Bronch Specimen Source Left lower lobe 01/25/23 12:50 Bronchial Fluid Color White 01/25/23 12:50 Bronchial Fluid Appearance Cloudy (CLEAR) 01/25/23 12:50 Bronchial Fluid WBC 1160 /uL 01/25/23 12:50 Bronchial Fluid RBC 12 10^3/uL 01/25/23 12:50 Bronch Cells Counted 200 01/25/23 12:50 Bronchial Neutrophils 97.00 % (0.9-2.3) H 01/25/23 12:50 Bronchial Lymphocytes 2.00 % (10.71-12.91) L 01/25/23 12:50 Bronchial Macrophages 1.00 % (83.6-86.8) L 01/25/23 12:50 Bronchial Diff Comment Yes 01/25/23 12:50 Random Vancomycin 19.8 ug/mL (20.0-40.0) L 01/26/23 05:44 Serum Ketones Negative (Negative) 01/22/23 09:16 Adenovirus (PCR) Not detected (NOT DETECT) 01/25/23 08:45 C. pneumoniae DNA (PCR) Not detected (NOT DETECT) 01/25/23 08:45 Coronavirus 229E (PCR) Not detected (NOT DETECT) 01/25/23 08:45 Hep Bs Antigen Non-reactive (Nonreactive) 01/24/23 11:27 Hep Bs Antibody 3.5 (11.5-1000) L 01/24/23 11:27 Hep B Core Total Ab Non-reactive (Nonreactive) 01/24/23 11:27 Hepatitis C Antibody Non-reactive (Nonreactive) 01/24/23 11:27 Human Metapneumovir PCR Not detected (NOT DETECT) 01/25/23 08:45 Influenza A (H1) PCR Not detected (NOT DETECT) 01/25/23 08:45 Influenza A (H3) PCR Not detected (NOT DETECT) 01/25/23 08:45 Influenza Type A Ag negative (Negative) 01/22/23 11:02 Influenza Type A (PCR) Not detected (NOT DETECT) 01/25/23 08:45 Influenza Type B Ag negative (Negative) 01/22/23 11:02 Influenza Type B (PCR) Not detected (NOT DETECT) 01/25/23 08:45 M. pneumoniae (PCR) Not detected (NOT DETECT) 01/25/23 08:45 Parainfluenza 1 (PCR) Not detected (NOT DETECT) 01/25/23 08:45 Parainfluenza 2 (PCR) Not detected (NOT DETECT) 01/25/23 08:45 Parainfluenza 3 (PCR) Not detected (NOT DETECT) 01/25/23 08:45 Parainfluenza 4 (PCR) Not detected (NOT DETECT) 01/25/23 08:45 RSV Type A (PCR) Not detected (NOT DETECT) 01/25/23 08:45 RSV Type B (PCR) Not detected (NOT DETECT) 01/25/23 08:45 Entero/Rhino (PCR) Not detected (NOT DETECT) 01/25/23 08:45 SARS-CoV-2 (PCR) Not detected (NOT DETECT) 01/25/23 08:45 Micro: Microbiology 01/25/23 08:36 MRSA Culture - Final Nose 01/25/23 12:50 Gram Stain - Final Lung Left Lower Lobe 01/25/23 08:36 Urine Culture - Preliminary Urine Suprapubic Gram Negative Rods 01/23/23 Unknown Urine Culture - Preliminary Urine Suprapubic Coag positive Staphylococcus Gram Negative Rods 01/25/23 08:40 Blood Culture - Preliminary Blood NEGATIVE TO DATE 01/25/23 08:29 Blood Culture - Preliminary Blood NEGATIVE TO DATE 01/23/23 Unknown Wound Culture - Preliminary Other Source 01/23/23 Unknown Gram Stain - Final Sputum - Endotracheal Tube Aspirate Sputum Culture - Preliminary Gram Negative Rods A&P Assessment and plan (1) Acute encephalopathy: (2) Acute respiratory failure with hypoxia: (3) CVA (cerebral vascular accident): (4) Acute kidney injury: (5) Diabetes mellitus, type II: (6) Neurogenic bladder: (7) Status post cystoscopy with ureteral stent placement: (8) Metabolic acidosis: (9) Acute pyelonephritis: (10) CKD (chronic kidney disease): (11) Goals of care, counseling/discussion: Plan ASSESSMENT/PLAN:Overall: 58-year-old Ms. Erika Shen with multiple CVAs with left hemiplegia, dependent on ADLs, neurogenic bladder s/p suprapubic catheter, recurrent UTIs, diabetes, CKD presented to emergency room with altered mental status, nausea, vomiting- found to be in sepsis based on labs-urine cultures growing persistent Proteus resistant to ciprofloxacin nitrofurantoin and tetracycline-went into acute hypoxic respiratory failure-secondary to fluid overload/aspiration pneumonia prompting intubation and mechanical ventilation support and developing sepsis induced EFREN on CKD stage III-prompting to start hemodialysis. NEURO: DIAGNOSIS-PLAN: {neuro:93084} #Altered mental status-secondary to recurrent UTI/aspiration pneumonia -Currently intubated/sedated on propofol and fentanyl - we will taper off sedation and do awakening trial #History of multiple CVAs-with residual left hemiplegia -At baseline patient is dependent on ADLs -She is on Plavix and statin PULM: {PULMICU:34406} #Acute hypoxic respiratory failure-secondary to fluid overload/aspiration pneumo willie -CTA 01/24/2023-did not show any evidence of PE, however showed left lower lobe consolidation -Ventilator settings CMV 400/14/PEEP 8/ 30% FiO2 - abg today with ph 7.14 metabolic acidosis -Patient is currently on hemodialysis for fluid removal-is scheduled to receive dialysis session today -Patient is covered with vancomycin and meropenam for aspiration pneumonia- sputum cultures positive for gram-negative rods CVS: #Hemodynamically stable -Echocardiogram 01/23/2023-normal GI: {Gastro ICU:55241} #Diet: TF nephro #GI prophylaxis #PPI #LFTs: Within normal limits #RENAL: {Renal ICU:02430} #EFREN on CKD stage III #Metabolic acidosis requiring hemodialysis -Worsening renal function and decreasing urine output and metabolic acidosis -Nephrology on board -Hemodialysis catheter placed 01/24/2023-had 1 session of hemodialysis-after 2.5 hours and removing 2 L-catheter got clogged and has to terminate hemodialysis yesterday-today she is pending for another session of hemodialysis -Monitor BUN, creatinine, urine output, electrolytes #complicated urological history with neurogenic bladder, stones, suprapubic cat heter as well as recurrent obstructive pyelonephritis.? - s/p cystoscopy with left ureteroscopy and left-sided laser lithotripsy with left ureteral stent placement along with removal of a prior right ureteral stent followed by introduction of a new stent and changing of her suprapubic catheter on January 14, 2023.? -01/25/23 she underwent bilateral ureteral stent exchange HEM: #Leukocytosis-trending down after starting antibiotics #Normal platelets ENDO: #Diabetes -Currently on insulin -moderately controlled sugars -Monitor and adjust insulin scale coverage accordingly ID: #Persistent Proteus obstructive pyelonephritis #Suspected aspiration pneumonia-sputum cultures positive for gram-negative rods -DIC panel showed normal fibrinogen but there were FDP -Currently patient is covered with vancomycin and Zosyn -Blood cultures negative so far; sputum cultures and repeat Urine cultures show gram negative rods - pt underwent bilateral ureteral stent exchange -Patient underwent bronchoscopy 01/25/2023 and noted mucous plugs in left airways-which were suctioned right away. Cell count is neutrophil predominant and cultures are pending -Currently hemodynamically stable without pressors -Monitor fever curve and white count #Goals of care discussion -Patient's [id number], who is next of kin, was at bedside. Explained the prognosis that patient is currently dialysis dependent but pulmonary standpoint currently she is on minimal settings and today we will taper off sedation and do awakening trial over the next 24 to 48 hours-we will be reviewed patient we will plan to extubate. With patient being baseline with multiple CVAs and left side paralysis and dependent on ADLs-she wants to discuss with other family members regarding future goals of care including reintubation, long-term acute care facility placement, comfort measures Code Status: Full code Disposition: ICU Critically ill:{Critical illness:68530} yes MD discussed with: {Discussed with:08996} hospitalist, RT, RN taking care of the patient ICU CHECKLIST: Problem list updated Verbal orders reviewed and signed Analgesia: Fentanyl Glycemic Control: Insulin Nutrition: ok to start TF nephro Restraint Renewal (within 24 hrs): {YES:74570} Ulcer Prophylaxis: PPI Chemical Thromboprophylaxis: Prophylaxis: Heparin Mechanical Thromboprophylaxis: scds Need for Central line: yes for multiple medications Need for Root catheter: Yes Attestations Medical Necessity Statement*: Intubated for hypoxic respiratory failure; on hemodialysis for renal failure-need close ICU monitoring Time Spent in Patient Care: Greater than 35 minutes (>than 50% of time spent in counselling and/or direct pt care on unit) . Critical Care Time: This patient has a high probability of? clinically sig nificant, sudden o r life threatening deterioration of the patient's (pul monary, neurologic al, renal, endocri ne) systems requir ed my full, direct attention, the hi ghest level of phjohny bradley preparednes s for urgent inter vention and person al management.? I managed/supervised life or organ sup porting interventi ons that required frequent physician assessment.? I de voted my full atte ntion in the ICU t o the direct care of this patient fo r the period of ti me indicated above .? Time I spent wi th family or surro gate(s) is include d only if the haresh ent was incapable of providing neces ozzie information o r participating in decision making.? This time includ es the following s ervices provided: Telemetry review Mechanical Ventila tion Hemodynamic i nterpretation, ass essment and manage ment Review and in terpretation of CX R Review and inter pretation of lab v odessaes Review and i nterpretation of m icrobiologic data and culture result s Review of medica tions and administ ration Review and interpretation of Nutrition requirem ents and managemen t Discussion of miko dominguez with othe r consultants and services Clinical update to family m neftaly [x] Data a nd vital sign revi ew and interpretat ion [x] Patient as sessment, examinat ion and interventi on [x] Documentati on [x] Medication orders and managem ent Time spent fo r teaching as well as performing pro cedures are billed separately and is not included in t his note ? Critica l Care Time (min): 55 Coding Level of Care Code Acute Code for Chg Fwd Diagnoses Acute encephalopathy G93.40 Acute respiratory failure with hypoxia J96.01 CVA (cerebral vascular accident) I63.9 Acute kidney injury N17.9 Diabetes mellitus, type II E11.9 Neurogenic bladder N31.9 Status post cystoscopy with ureteral stent placement Z96.0 Metabolic acidosis E87.20 Acute pyelonephritis N10 CKD (chronic kidney disease) N18.9 Goals of care, counseling/discussion Z71.89 Time Spent (min) 55
[2023-01-26] MEDS: insulin glargine 100 units/1 mL 10 UNIT SUBCUT ×2 (13:18→23:09)
--- NOTE | 2023-01-26 13:40 | PC.NURSE ---
New Orders Received Received telephone orders from Dr. Dang to start patient on bicarb gtt 150mEq at 100mls/hr.
[2023-01-26] MEDS: sodium bicarbonate 150 MEQ in dextrose 5% 1,000 ML 100 MEQ IV (13:53)
--- NOTE | 2023-01-26 15:43 | P.PN_ITS ---
Subjective Subjective: Patient was seen this morning, she had low-grade fevers throughout the night, no episodes of hypotension, currently normotensive, on 40% FiO2, urine output 200 cc, she is being weaned off sedation, Vitals/I&O/Wt Last Vital Signs Temp 99.8 F H 01/26/23 10:00 Pulse 107 H 01/26/23 12:00 Resp 15 01/26/23 15:08 BP 101/53 01/26/23 12:00 Pulse Ox 95 01/26/23 15:08 O2 Del Method 01/26/23 10:00 O2 Flow Rate 2 01/23/23 04:00 FiO2 30 01/26/23 15:08 01/26/23 01/26/23 01/26/23 06:59 14:59 22:59 Intake Total 203.376 / 3701.768 287.9 / 287.9 Balance 203.376 / 3501.768 287.9 / 287.9 Weight last 48 hrs Weight 108.9 kg Physical Exam Const: COMMON NORMALS: no acute distress OTHER: Endotracheal tube in place Right PICC line in place Right dialysis catheter in place Resp: COMMON NORMALS: normal respiratory effort, No retractions, No use of accessory muscles and clear to auscultation bilaterally AUSCULTATION: clear to auscultation bilaterally Cardio: COMMON NORMALS: regular rate, regular rhythm, S1 normal heart sound present and S2 normal heart sound present RATE: regular rate RHYTHM: regular rhythm HEART SOUNDS: S1 normal heart sound present and S2 normal heart sound present GI: COMMON NORMALS: Normal to inspection, nondistended, normoactive bowel sounds present and non-tender Extremity: COMMON NORMALS: no pedal edema Urinary Catheter Management: Suprapubic: Cath Placed During This Visit: no Reason for Continuing Indwelling Catheter: Accurate Measurement of Urinary Output in Critically Ill Patients Data 01/26/23 05:44 01/26/23 05:44 Micro: Microbiology 01/25/23 09:40 Sputum Culture - Preliminary Sputum - Endotracheal Tube Aspirate Coag positive Staphylococcus 01/25/23 12:50 Gram Stain - Final Lung Left Lower Lobe Bronchoalveolar Lavage Culture - Preliminary Coag positive Staphylococcus 01/23/23 Unknown Gram Stain - Final Sputum - Endotracheal Tube Aspirate Sputum Culture - Final Escherichia coli 01/25/23 08:36 MRSA Culture - Final Nose 01/25/23 08:36 Urine Culture - Preliminary Urine Suprapubic Gram Negative Rods 01/23/23 Unknown Urine Culture - Preliminary Urine Suprapubic Coag positive Staphylococcus Gram Negative Rods 01/25/23 08:40 Blood Culture - Preliminary Blood NEGATIVE TO DATE 01/25/23 08:29 Blood Culture - Preliminary Blood NEGATIVE TO DATE 01/23/23 Unknown Wound Culture - Preliminary Other Source A&P Assessment and plan (1) Sepsis: (2) Acute encephalopathy: (3) Acute respiratory failure with hypoxia: (4) Hydronephrosis, left: (5) NSTEMI (non-ST elevated myocardial infarction): (6) Metabolic acidosis: (7) Neurogenic bladder: (8) Diabetes mellitus, type II: (9) Dyslipidemia: (10) Acute kidney injury: (11) Acute pyelonephritis: (12) BMI 37.0-37.9, adult: (13) Suprapubic catheter: (14) Status post cystoscopy with ureteral stent placement: (15) CVA (cerebral vascular accident): (16) Deep tissue injury: (17) Metabolic acidosis: (18) Staphylococcal pneumonia: (19) Pneumonia: Plan Acute hypoxic respiratory failure -Secondary to pneumonia -Some component related to fluid overload and pulmonary edema Plan -Currently intubated, sedated on mechanical ventilation -Minimize FiO2, minimize tidal volume -Daily spontaneous breathing trials as requested -Wean off sedation, propofol, fentanyl -Levophed to maintain MAP greater than 65 -Currently on broad-spectrum antibiotic therapy vancomycin, broaden to Primaxin -Metabolic acidosis, received 2 A of bicarb, started on bicarb drip -Fluconazole added for antifungal coverage -Follow repeat blood cultures, sputum cultures, urine cultures -Receiving dialysis -Full code -Heparin drip for DVT prophylaxis Pneumonia -Status post bronchoscopy -Bronchiolar lavage cultures growing coagulase positive staphylococci -MRSA nares positive UTI, pyelonephritis Urine cultures growing coagulase positive staphylococci Gram-negative rods Acute encephalopathy, intubated, sedated, -Monitor mentation off sedation Acute pyelonephritis -On broad-spectrum antibiotic therapy vancomycin, Zosyn -Fluconazole added for antifungal coverage -Status swap out bilateral ureteral stent, with larger stent, drainage of high- pressure sediment from the left and stent was placed -Continues to have sediment in urine -Monitor urine cultures, monitor blood cultures -Tylenol for fevers -Monitor creatinine, monitor urine output Acute renal failure on chronic kidney disease -Likely multifactorial -From sepsis -From pyelonephritis -Renal ultrasound does show left hydronephrosis -CT abdomen pelvis shows ?Bilateral ureteral stents in good position with bilateral moderate renal pelvic dilatation. -Status post swap of bilateral ureteral stent -Avoid nephrotoxic agents -Monitor creatinine, monitor urine output -Spoke to nephrology, plans on dialysis today, spoke to pulmonary, plans on dialysis catheter placement Metabolic acidosis, secondary acute renal failure Sepsis, secondary to acute pyelonephritis Persistent fevers, as above Status post cystoscopy with ureteral stent placement -Had bilateral ureteral stents placed January 14, [address] Gama -CT abdomen pelvis shows ?Bilateral ureteral stents in good position with bilateral moderate renal pelvic dilatation. -Status post swap of bilateral ureteral stents Suprapubic catheter in place -Monitor Hypertension, hold blood pressure medication Hyperglycemia with type 2 diabetes mellitus -Lantus 10 units every 12 hours -Monitor sliding scale History of CVA -History of multiple CVAs -With left hemiparesis, requires assistance with most ADLs -Can feed herself of the right hand -Chronically on Plavix History of seizures, continue Topamax Sacral decubitus ulcer stage I present on admission, continue to monitor a possible source of infection, will consider repeat CAT scan if fever trend does not improve Obesity Spoke to urology, spoke to nephrology, urology, spoke to pulmonary, spoke to nursing staff Attestations Medical Necessity Statement*: Patient requires hospitalization for respiratory failure, staphylococci pneumonia, UTI, pyelonephritis, acute renal failure Coding Level of Care Code Critical Care >/= 30 minutes Critical care time (in minutes): 40 The high probability of a clinically significant, sudden or life threatening deterioration, as referenced in this documentation, required my full and direct attention, intervention and personal management. The critical care time shown is in addition to time spent performing any reported separately billable procedures and includes the following: [x] Data and vital sign review and interpretation [x ] Patient assessment, examination and intervention [x] Medication orders and man agement [x] Patient/Family updates as able [x] Care Coordination and Documentation. Diagnoses Sepsis A41.9 Acute encephalopathy G93.40 Acute respiratory failure with hypoxia J96.01 Hydronephrosis, left N13.30 NSTEMI (non-ST elevated myocardial infarction) I21.4 Metabolic acidosis E87.20 Neurogenic bladder N31.9 Diabetes mellitus, type II E11.9 Dyslipidemia E78.5 Acute kidney injury N17.9 Acute pyelonephritis N10 BMI 37.0-37.9, adult Z68.37 Suprapubic catheter Z93.59 Status post cystoscopy with ureteral stent placement Z96.0 CVA (cerebral vascular accident) I63.9 Deep tissue injury T14.8XXA Metabolic acidosis E87.20 Staphylococcal pneumonia J15.20 Pneumonia J18.9
[2023-01-26 18:04] LABS: Glucose Point of Care 130 mg/dL (70-110)
[2023-01-26] MEDS: heparin, porcine 1,000 unit/mL INJ 10 mL 10000 UNIT INTRACATH ×2 (18:10→21:35)
--- NOTE | 2023-01-26 18:10 | PC.NURSE ---
New Orders Received Received verbal orders from Dr. Bazan to stop bicarb gtt.
--- NOTE | 2023-01-26 19:17 | PM.PN ---
Subjective Subjective: remians on vent Medications: Reviewed: Yes Vitals/I&O/Wt Last Vital Signs Temp 99.8 F H 01/26/23 10:00 Pulse 105 H 01/26/23 16:19 Resp 18 01/26/23 17:11 BP 103/52 01/26/23 16:00 Pulse Ox 95 01/26/23 17:11 O2 Del Method 01/26/23 10:00 O2 Flow Rate 2 01/23/23 04:00 FiO2 30 01/26/23 18:00 01/26/23 01/26/23 01/26/23 06:59 14:59 22:59 Intake Total 203.376 / 3701.768 287.9 / 287.9 1365 / 1652.9 Balance 203.376 / 3501.768 287.9 / 287.9 1365 / 1652.9 Physical Exam Narrative: intubated , sedated Urinary Catheter Management: Suprapubic: Cath Placed During This Visit: no Reason for Continuing Indwelling Catheter: Accurate Measurement of Urinary Output in Critically Ill Patients Data 01/26/23 05:44 01/26/23 05:44 Micro: Microbiology 01/25/23 12:50 Gram Stain - Final Lung Left Lower Lobe Bronchoalveolar Lavage Culture - Preliminary Coag positive Staphylococcus 01/23/23 Unknown Wound Culture - Preliminary Other Source Coag positive Staphylococcus Gram Negative Rods 01/25/23 09:40 Gram Stain - Final Sputum - Endotracheal Tube Aspirate Sputum Culture - Preliminary Coag positive Staphylococcus 01/23/23 Unknown Gram Stain - Final Sputum - Endotracheal Tube Aspirate Sputum Culture - Final Escherichia coli 01/25/23 08:36 MRSA Culture - Final Nose 01/25/23 08:36 Urine Culture - Preliminary Urine Suprapubic Gram Negative Rods 01/23/23 Unknown Urine Culture - Preliminary Urine Suprapubic Coag positive Staphylococcus Gram Negative Rods 01/25/23 08:40 Blood Culture - Preliminary Blood NEGATIVE TO DATE 01/25/23 08:29 Blood Culture - Preliminary Blood NEGATIVE TO DATE A&P Assessment and plan (1) CKD (chronic kidney disease): Plan 1. Acute on chronic kidney disease stage III: Patient's baseline creatinine is in the 2 range now with a creatinine of 4.1. . EFREN likely from ATN from sepsis/hypotension. -Due to volume overload and metabolic acidosis , and oliguria- initiated hemodialysis. s/p HD catheter placement and started HD. Eval daily for HD needs -Avoid IV contrast studies and nephrotoxins 2. Metabolic acidosis: improved 3. Hyponatremia: improved 4. Acute respiratory failure: Intubated and sedated 5. Acute pyelonephritis, patient with history of recurrent pyelonephritis: On antibiotics per primary team 6. History of ureteral stents, neurogenic bladder with suprapubic catheter Attestations Medical Necessity Statement*: Patient requires hospitalization for respiratory failure, staphylococci pneumonia, UTI, pyelonephritis, acute renal failure Coding Level of Care Code Acute Code for Chg Fwd Diagnoses CKD (chronic kidney disease) N18.9
--- NOTE | 2023-01-26 19:20 | PM.CONSULT ---
Providers/Reason For Consult Attending Physician: Julius Bazan MD Primary Care Provider: Vu Neil Jr, MD History of Present Illness History of Present Illness Erika Shen is a 58 year old female Review of Systems General: Reports: ROS unobtainable due to endotracheal tube, ROS unobtainable due to medical condition, ROS unobtainable due to mental status and Other (ROS as per HPI or as otherwise noted here, limited due to mental status) Narrative: CANNOT OBTAIN Const: Reports: fever(s) Eyes: Denies: photophobia ENMT: Denies: enlarged tonsils Card: Denies: chest pain Resp: Denies: dyspnea GI: Reports: abdominal pain; Denies: nausea, vomiting or diarrhea : Reports: other (suprapubic catheter seems to be draining well); Denies: flank pain Musc: Denies: neck pain, back pain, extremity pain or joint pain Skin/Breast: Denies: rash Neuro: Reports: confusion; Denies: headache(s) All/Imm: Denies: acute wheezing Medications/Allergies Home Medications Medication Instructions Recorded Confirmed Last Taken Type escitalopram oxalate 20 mg tablet 20 mg PO DAILY@12/01/19 01/22/23 01/22/23 History solifenacin 5 mg tablet (Vesicare) 5 mg PO DAILY@12/01/19 01/22/23 01/22/23 History topiramate 100 mg tablet (Topamax) 100 mg PO DAILY@12/01/19 01/22/23 01/22/23 History cyclobenzaprine 10 mg tablet 10 mg PO Q8H PRN muscle spasms 10/12/20 01/22/23 12/22/20 History blood sugar diagnostic (Accu-Chek #10 ea 10/15/20 01/22/23 Unknown Rx Gaby Plus test strips) blood-glucose meter (Accu-Chek #1 ea 10/15/20 01/22/23 Unknown Rx Gaby Plus Meter) lancets (Accu-Chek Multiclix #100 ea 10/15/20 01/22/23 Unknown Rx Lancet) metoprolol succinate 200 mg 200 mg PO DAILY@12/17/20 01/22/23 01/22/23 History tablet,extended release 24 hr methenamine hippurate 1 gram 1 g PO BID@07,05/01/21 01/22/23 01/22/23 History tablet (Hiprex) bisacodyl 10 mg rectal suppository 10 mg VT DAILY PRN Constipation 08/03/21 01/22/23 Unknown History insulin glargine 100 unit/mL (3 25 unit SUBCUT BEDTIME@08/03/21 01/22/23 01/21/23 History mL) subcutaneous pen (Lantus Solostar U-100 Insulin) hydrocodone 5 mg-acetaminophen 325 1 tab PO Q4H PRN Pain 11/20/21 01/22/23 12/17/22 History mg tablet amlodipine 10 mg tablet 10 mg PO DAILY@01/05/22 01/22/23 01/22/23 History clopidogrel 75 mg tablet 75 mg PO DAILY@01/05/22 01/22/23 01/22/23 History pravastatin 80 mg tablet 80 mg PO DAILY@08/09/22 01/22/23 01/22/23 History sodium phosphates 19 gram-7 118 ml VT DAILY PRN Constipation 08/09/22 01/22/23 Unknown History gram/118 mL enema (Enema Disposable) hydroxyzine HCl 25 mg tablet 25 mg PO Q8H PRN Itching 09/19/22 01/22/23 Unknown History acetaminophen 650 mg rectal 650 mg VT Q6H PRN pain/fever 12/11/22 01/22/23 Unknown History suppository sitagliptin phosphate 25 mg tablet 25 mg PO DAILY@12/11/22 01/22/23 01/22/23 History (Januvia) fluconazole 150 mg tablet 150 mg PO DAILY 01/22/23 01/22/23 01/22/23 History Allergies Allergy/AdvReac Type Severity Reaction Status Date / Time levofloxacin [From Levaquin] Allergy NA Verified 01/22/23 09:57 metronidazole [From Flagyl] Allergy NA Verified 01/22/23 09:57 miconazole Allergy NA Verified 01/22/23 09:57 Sulfa (Sulfonamide Allergy NA Verified 01/22/23 09:57 Antibiotics) sulfamethoxazole Allergy Unknown Verified 01/22/23 09:57 [From Bactrim] trimethoprim [From Bactrim] Allergy Unknown Verified 01/22/23 09:57 Current Medications Generic Name Dose Route Start Last Admin Trade Name Freq PRN Reason Stop Dose Admin Acetaminophen 650 mg 01/22/23 20:07 01/25/23 03:48 Acetaminophen 650 Mg Supp VT 650 mg Q6H PRN Administration mild pain/temp >/= 101 if npo Atorvastatin Calcium 40 mg 01/23/23 09:00 01/26/23 10:14 Atorvastatin 40 Mg Tablet PO 40 mg DAILY ED Administration Clopidogrel Bisulfate 75 mg 01/23/23 07:00 01/26/23 06:11 Clopidogrel 75 Mg Tablet PO 75 mg DAILY@07 ED Administration Escitalopram Oxalate 20 mg 01/23/23 09:00 01/26/23 10:14 Escitalopram 10 Mg Tablet PO 20 mg DAILY ED Administration Heparin Sodium (Porcine) 5,000 unit 01/24/23 18:00 01/26/23 18:08 Heparin 5,000 Unit/Ml Inj 1 Ml SUBCUT 5,000 unit Q12H ED Administration Heparin Sodium (Porcine) 10,000 unit 01/25/23 10:00 01/26/23 18:10 Heparin, Porcine 1,000 Unit/Ml Inj 10 Ml INTRACATH 10,000 unit ONCE PRN Administration WITH DIALYSIS Vancomycin/PEG/NADA/Lysine/Water 1,500 mg in 300 mls @ 200 mls/hr 01/23/23 08:30 01/25/23 09:47 Vancocin IV Infused Q48H ED Infusion Fluconazole 200 mg in 100 mls @ 100 mls/hr 01/23/23 08:30 01/26/23 08:50 Diflucan Premix IV Infused Q24H ED Infusion Fentanyl 1,000 mcg/ Sodium 100 mls @ 0 mls/hr 01/24/23 13:15 01/26/23 08:00 Chloride IV 0 mcg/hr .Q0M ED 0 mls/hr Titration Protocol Per Protocol Midazolam HCl 100 mg/ Sodium 100 mls @ 0 mls/hr 01/24/23 21:00 01/26/23 08:00 Chloride IV 0 mg/hr .Q0M ED 0 mls/hr Titration Protocol Per Protocol Propofol 1,000 mg in 100 mls @ 0 mls/hr 01/25/23 10:15 01/26/23 05:27 Diprivan IV 15 mcg/kg/min .Q0M ED 9.8 mls/hr Titration Protocol Per Protocol Meropenem 500 mg/ Sodium 50 mls @ 100 mls/hr 01/25/23 11:00 01/26/23 10:44 Chloride IV Infused Q12H ED Infusion Sodium Bicarbonate 150 meq/ 1,150 mls @ 50 mls/hr 01/26/23 14:00 01/26/23 18:14 Dextrose IV 0 mls/hr .Q23H ED Infusion Insulin Glargine 10 unit 01/23/23 11:30 01/26/23 13:18 Insulin Glargine 100 Units/1 Ml SUBCUT 10 unit Q12H ED Administration Insulin Human Lispro 0 unit 01/22/23 21:00 01/25/23 20:32 Insulin Lispro 100 Unit/1 Ml SUBCUT Not Given BEDTIME ED Protocol Insulin Human Lispro 0 unit 01/22/23 20:07 01/26/23 18:07 Insulin Lispro 100 Unit/1 Ml SUBCUT Not Given TIDWM ED Protocol Pantoprazole Sodium 40 mg 01/23/23 08:00 01/26/23 07:50 Pantoprazole 40 Mg Sdv IVP 40 mg Q12H ED Administration Topiramate 100 mg 01/23/23 07:00 01/26/23 06:11 Topiramate 100 Mg Tablet PO 100 mg DAILY@07 ED Administration PFSH Acute PFSH: Medical History Bilateral renal stones Partial staghorn Chronic migraine without aura, intractable, with status migrainosus CKD (chronic kidney disease) CVA (cerebral vascular accident) Initial CVA 2011, has has multiple ischemic multiple vascular territory strokes, including vertebrobasilar artery thalamic stroke, left pontine stroke; left hemiparesis, difficulty communicating in conversation, short term more than fpc memory loss Depression Diabetes mellitus, type II a1c 10/2020 12.7 Dyslipidemia History of seizure on topamax Hypertension hypertensive emergency 10/2020 Macular degeneration Neurogenic bladder suprapubic catheter Obesity Recurrent obstructive pyelonephritis Recurrent UTI Requires assistance with activities of daily living (ADL) Surgical History H/O detached retina repair H/O oral surgery History of suprapubic catheter S/P appendectomy S/P cataract surgery S/P cholecystectomy S/P knee surgery S/P shoulder surgery Status post cystoscopy with ureteral stent placement 01/14/2023, bilateral stents placed by Dr Gama Family History Father Cancer Lymphoma Mother CAD (coronary artery disease) Diabetes Chronic kidney disease (CKD) Social History Smoking and tobacco status: former smoker Alcohol intake: never Caregiver/support person: No Lives independently: No Marital status: Marital status details: 12/17/20 Current occupational status: disabled Vitals/I&O/Wt Last Vital Signs Temp 99.8 F H 01/26/23 10:00 Pulse 105 H 01/26/23 16:19 Resp 18 01/26/23 17:11 BP 103/52 01/26/23 16:00 Pulse Ox 95 01/26/23 17:11 O2 Del Method 01/26/23 10:00 O2 Flow Rate 2 01/23/23 04:00 FiO2 30 01/26/23 18:00 01/26/23 01/26/23 01/26/23 06:59 14:59 22:59 Intake Total 203.376 / 3701.768 287.9 / 287.9 1365 / 1652.9 Balance 203.376 / 3501.768 287.9 / 287.9 1365 / 1652.9 Physical Exam Narrative: intubated , sedated Urinary Catheter Management: Suprapubic: Cath Placed During This Visit: no Reason for Continuing Indwelling Catheter: Accurate Measurement of Urinary Output in Critically Ill Patients Data 01/26/23 05:44 01/26/23 05:44 Micro: Microbiology 01/25/23 12:50 Gram Stain - Final Lung Left Lower Lobe Bronchoalveolar Lavage Culture - Preliminary Coag positive Staphylococcus 01/23/23 Unknown Wound Culture - Preliminary Other Source Coag positive Staphylococcus Gram Negative Rods 01/25/23 09:40 Gram Stain - Final Sputum - Endotracheal Tube Aspirate Sputum Culture - Preliminary Coag positive Staphylococcus 01/23/23 Unknown Gram Stain - Final Sputum - Endotracheal Tube Aspirate Sputum Culture - Final Escherichia coli 01/25/23 08:36 MRSA Culture - Final Nose 01/25/23 08:36 Urine Culture - Preliminary Urine Suprapubic Gram Negative Rods 01/23/23 Unknown Urine Culture - Preliminary Urine Suprapubic Coag positive Staphylococcus Gram Negative Rods 01/25/23 08:40 Blood Culture - Preliminary Blood NEGATIVE TO DATE 01/25/23 08:29 Blood Culture - Preliminary Blood NEGATIVE TO DATE A&P Assessment and plan (1) CKD (chronic kidney disease): Plan 1. Acute on chronic kidney disease stage III: Patient's baseline creatinine is in the 2 range now with a creatinine of 4.1. . EFREN likely from ATN from sepsis/hypotension. -Due to volume overload and metabolic acidosis , and oliguria- initiated hemodialysis. s/p HD catheter placement and started HD. Eval daily for HD needs -Avoid IV contrast studies and nephrotoxins 2. Metabolic acidosis: improved 3. Hyponatremia: improved 4. Acute respiratory failure: Intubated and sedated 5. Acute pyelonephritis, patient with history of recurrent pyelonephritis: On antibiotics per primary team 6. History of ureteral stents, neurogenic bladder with suprapubic catheter Coding Level of Care Code Acute Code for Chg Fwd Diagnoses CKD (chronic kidney disease) N18.9
[2023-01-26] MEDS: propofol 1,000 MG/100 ML INJ 9.8 MG IV (19:44)
[2023-01-26 21:03] LABS: Glucose Point of Care 119 mg/dL (70-110)
[2023-01-27] VITALS (56 sets, daily range): BP systolic 88–131; BP diastolic 58–76; PULSE 85–105; RESP 14–17; TEMP 36.9–37.6; O2SAT 72–97
[2023-01-27 05:07] LABS: Lactate (Lactic Acid level) 0.9 mmol/L (0.5-2.2)
[2023-01-27] MEDS: heparin 5,000 unit/mL INJ 1 mL 5000 UNIT SUBCUT ×2 (05:09→17:46)
[2023-01-27 05:13] LABS: ABG PCO2 37.4 mmHg (35-45); Arterial Blood Gas Hematocrit 23.3 % (37-47); Base Excess ABG -7.4 mmol/L (-2.0-2.0); Blood Gas Allen Test Pos; Blood Gas Sample Site Radial, right; Blood Gas Sample Type Arterial; Blood Gas Tidal Volume 0.45; HCO3 ABG 18.4 mmol/L (22-26); Oxygen Device VENT; PO2 ABG 94.7 mmHg (80.0-100.0)
[2023-01-27 05:16] LABS: INR 1.03 (0.8-1.2)
[2023-01-27 05:23] LABS: Alanine Aminotransferase 8 U/L (0-33); Albumin Level 2.8 g/dL (3.5-5.2); Alkaline Phosphatase 91 U/L (35-105); Anion Gap 28.4 (5-19); Aspartate Amino Transferase 22 U/L (0-32); Blood Urea Nitrogen 29 mg/dL (6-20); C Reactive Protein 324.6 mg/L (0.0-4.9); Carbon Dioxide 17 mmol/L (22-29); Chloride 96 mmol/L (98-107); Globulin 3.8 g/dL (1.3-4.6); Glomerular Filtration Rate 11.1 mL/min (90-130); Glucose 153 mg/dL (65-115); Osmolality Calculated 295 mOsm/kg (285-295); Phosphorus 6.8 mg/dL (2.5-4.5); Potassium 3.4 mmol/L (3.5-5.1); Sodium 138 mmol/L (136-145); Total Bilirubin 0.2 mg/dL (0.15-1.2); Total Protein 6.6 g/dL (6.6-8.7)
[2023-01-27 05:30] LABS: NT Pro B Type Natriuretic Pept 4816 pg/mL (0-125); Procalcitonin 6.73 ng/mL (0-0.5)
[2023-01-27 05:42] LABS: Creatine Phosphokinase 1774 U/L (26-192)
[2023-01-27 05:44] LABS: Basophils % 0.4 %; Eosinophils % 0.4 %; Hematocrit 28.3 % (37.0-47.0); Hemoglobin 8.5 g/dL (11.5-15.3); Mean Corpuscular Hemoglobin 25.9 pg (28.0-34.0); Mean Corpuscular Volume 86.3 fl (81-99); Mean Platelet Volume 9.5 fL (7.4-10.4); Monocytes # 0.8 10^3/uL (0.2-0.9); Monocytes % 7.1 %; Neutrophils # 9.19 10^3/uL (1.8-7.7); Neutrophils % 81.7 %; Nucleated Red Blood Cells % 0 %; Platelet Count 299 10^3/cmm (130-400); Red Blood Count 3.28 10^6/uL (4.1-5.3); Red Cell Distribution Width 14.6 % (12.1-15.1); White Blood Count 11.2 10^3/uL (4.0-10.0)
[2023-01-27] MEDS: clopidogrel 75 mg Tablet PO (06:02)
[2023-01-27] MEDS: topiramate 100 mg Tablet PO (06:03)
--- NOTE | 2023-01-27 07:00 | XRR_ITS ---
PROCEDURE INFORMATION: Exam: XR Chest Exam date and time: 01/27/2023 6:47 AM Age: 58 years old Clinical indication: Device placement; Ett placement (vent status); Shortness of breath; Additional info: SOB TECHNIQUE: Imaging protocol: Radiologic exam of the chest. Views: 1 view. COMPARISON: CR (CHEST, ) 01/26/2023 7:51 AM FINDINGS: Tubes, catheters and devices: The endotracheal tube is appropriately positioned in the distal thoracic trachea with the tip above the gilda. NG tube tip is at the diaphragmatic hiatus. Right PICC line tip is in the lower SVC near the cavoatrial junction. Right internal jugular central line tip is in the upper SVC. Lungs: Mild platelike opacity in the lung bases bilaterally, similar to the findings on the prior chest radiograph suggesting subsegmental atelectasis. Pleural spaces: There is no pleural effusion or pneumothorax. Heart/Mediastinum: Cardiomediastinal contours are unremarkable. Bones/joints: Unremarkable. XR/XR chest 1V portable [id number] IMPRESSION: 1. NG tube tip is at the diaphragmatic hiatus. The tube should be advanced 10-15 cm for ideal position. 2. Satisfactory endotracheal tube position. 3. PICC line tip is in the lower SVC near the cavoatrial junction. 4. Right internal jugular central line tip is in the upper SVC.
[2023-01-27] MEDS: fluconazole premix 200 MG/100 ML PREMIX 100 MG IV (07:58)
[2023-01-27] MEDS: pantoprazole 40 mg SDV IVP ×2 (07:58→20:10)
[2023-01-27] MEDS: vancomycin 1,500 MG/300 ML PIGGYBACK 200 MG IV (08:00)
[2023-01-27] MEDS: atorvastatin 40 mg Tablet PO (08:01)
[2023-01-27] MEDS: escitalopram 10 mg Tablet 20 MG PO (08:01)
[2023-01-27] MEDS: lidocaine 1% 5 ML in potassium chloride premix 100 ML 52.5 ML IV (08:35)
[2023-01-27] MEDS: sodium chloride 0.9% 1,000 ML 50 ML IV (08:36)
[2023-01-27] MEDS: insulin lispro 100 unit/1 mL SUBCUT ×2 (08:37→17:46)
[2023-01-27 09:06] LABS: Glucose Point of Care 163 mg/dL (70-110)
--- NOTE | 2023-01-27 09:18 | PM.PN ---
Subjective Subjective: on 30 % fio2 Medications: Reviewed: Yes Vitals/I&O/Wt Last Vital Signs Temp 98.4 F 01/27/23 08:30 Pulse 92 01/27/23 08:30 Resp 14 01/27/23 07:20 BP 122/68 01/27/23 08:30 Pulse Ox 95 01/27/23 08:30 O2 Del Method 01/27/23 08:30 O2 Flow Rate 2 01/23/23 04:00 FiO2 30 01/27/23 08:30 01/26/23 01/27/23 01/27/23 22:59 06:59 14:59 Intake Total 1466.598 / 1801.122 32.041 / 1833.163 Output Total 0 / 0 Balance 1466.598 / 1801.122 32.041 / 1833.163 Physical Exam Narrative: intubated , sedated Urinary Catheter Management: Suprapubic: Cath Placed During This Visit: no Reason for Continuing Indwelling Catheter: Accurate Measurement of Urinary Output in Critically Ill Patients Data 01/27/23 04:32 01/27/23 04:32 Micro: Microbiology 01/25/23 12:50 Gram Stain - Final Lung Left Lower Lobe Bronchoalveolar Lavage Culture - Preliminary Coag positive Staphylococcus 01/23/23 Unknown Wound Culture - Preliminary Other Source Coag positive Staphylococcus Gram Negative Rods 01/25/23 09:40 Gram Stain - Final Sputum - Endotracheal Tube Aspirate Sputum Culture - Preliminary Coag positive Staphylococcus 01/23/23 Unknown Gram Stain - Final Sputum - Endotracheal Tube Aspirate Sputum Culture - Final Escherichia coli 01/25/23 08:36 MRSA Culture - Final Nose 01/25/23 08:36 Urine Culture - Preliminary Urine Suprapubic Gram Negative Rods 01/23/23 Unknown Urine Culture - Preliminary Urine Suprapubic Coag positive Staphylococcus Gram Negative Rods 01/25/23 08:40 Blood Culture - Preliminary Blood NEGATIVE TO DATE 01/25/23 08:29 Blood Culture - Preliminary Blood NEGATIVE TO DATE A&P Assessment and plan (1) CKD (chronic kidney disease): Plan 1. Acute on chronic kidney disease stage III: Patient's baseline creatinine is in the 2 range now with a creatinine of 4.1. . EFREN likely from ATN from sepsis/hypotension. -Due to volume overload and metabolic acidosis , and oliguria- initiated hemodialysis. s/p HD catheter placement and started HD. Eval daily for HD needs. s/p HD last night -Avoid IV contrast studies and nephrotoxins 2. Metabolic acidosis: improved 3. Hyponatremia: improved 4. Acute respiratory failure: Intubated and sedated 5. Acute pyelonephritis, patient with history of recurrent pyelonephritis: On antibiotics per primary team 6. History of ureteral stents, neurogenic bladder with suprapubic catheter Attestations Medical Necessity Statement*: Patient requires hospitalization for respiratory failure, staphylococci pneumonia, UTI, pyelonephritis, acute renal failure Coding Level of Care Code Acute Code for Chg Fwd Diagnoses CKD (chronic kidney disease) N18.9
[2023-01-27] MEDS: insulin glargine 100 units/1 mL 10 UNIT SUBCUT ×2 (10:33→23:06)
[2023-01-27] MEDS: meropenem 500 MG in sodium chloride 0.9% (plus) 50 ML 100 MG IV ×2 (10:33→23:05)
[2023-01-27 12:18] LABS: Glucose Point of Care 128 mg/dL (70-110)
--- NOTE | 2023-01-27 12:56 | PM.PN ---
Subjective Subjective: Postop day #2 urology follow-up Reviewed case with Dr. Bazan. No acute urologic issues to contend with. She does have pneumonia and seems to be making some progress with awaking from sedation with hopes of extubation at some point soon Suprapubic tube is functioning. Site looks healthy. More to follow when recovered from infection. Vitals/I&O/Wt Last Vital Signs Temp 98.4 F 01/27/23 08:30 Pulse 92 01/27/23 08:30 Resp 14 01/27/23 11:11 BP 122/68 01/27/23 08:30 Pulse Ox 94 01/27/23 11:11 O2 Del Method 01/27/23 08:30 O2 Flow Rate 2 01/23/23 04:00 FiO2 30 01/27/23 11:11 01/26/23 01/27/23 01/27/23 22:59 06:59 14:59 Intake Total 1466.598 / 1801.122 32.041 / 1833.163 505 / 505 Output Total 0 / 0 Balance 1466.598 / 1801.122 32.041 / 1833.163 505 / 505 Physical Exam Narrative: Sedated. Const: COMMON NORMALS: no acute distress Resp: OTHER: On the vent. Cardio: COMMON NORMALS: regular rate and regular rhythm RATE: regular rate RHYTHM: regular rhythm Psych: OTHER: Sedated Urinary Catheter Management: Suprapubic: Cath Placed During This Visit: no Reason for Continuing Indwelling Catheter: Accurate Measurement of Urinary Output in Critically Ill Patients Data 01/27/23 04:32 01/27/23 04:32 Micro: Microbiology 01/22/23 09:55 Blood Culture - Final Blood NO GROWTH AFTER 5 DAYS 01/22/23 09:53 Blood Culture - Final Blood NO GROWTH AFTER 5 DAYS 01/25/23 12:50 Gram Stain - Final Lung Left Lower Lobe Bronchoalveolar Lavage Culture - Preliminary Coag positive Staphylococcus 01/23/23 Unknown Wound Culture - Preliminary Other Source Coag positive Staphylococcus Gram Negative Rods 01/25/23 09:40 Gram Stain - Final Sputum - Endotracheal Tube Aspirate Sputum Culture - Preliminary Coag positive Staphylococcus 01/23/23 Unknown Gram Stain - Final Sputum - Endotracheal Tube Aspirate Sputum Culture - Final Escherichia coli 01/25/23 08:36 MRSA Culture - Final Nose 01/25/23 08:36 Urine Culture - Preliminary Urine Suprapubic Gram Negative Rods 01/23/23 Unknown Urine Culture - Preliminary Urine Suprapubic Coag positive Staphylococcus Gram Negative Rods 01/25/23 08:40 Blood Culture - Preliminary Blood NEGATIVE TO DATE 01/25/23 08:29 Blood Culture - Preliminary Blood NEGATIVE TO DATE A&P Assessment and plan (1) Suprapubic catheter: (2) Sepsis: (3) Neurogenic bladder: (4) Bilateral ureteral obstruction: Attestations Medical Necessity Statement*: See attending Coding Level of Care Code Acute Code for [facility] Fwd Diagnoses Suprapubic catheter Z93.59 Sepsis A41.9 Neurogenic bladder N31.9 Bilateral ureteral obstruction N13.5
--- NOTE | 2023-01-27 13:13 | P.PN_ITS ---
Subjective Subjective: Patient was seen this morning, she had low-grade temperatures overnight, is on 30% FiO2, remains off sedation, she does open her eyes to sternal rub, but does not follow commands, urine output 200 cc, -I had a nice discussion with patient's healthcare power of associate attorney today, discussing her positive sputum cultures of staph species, concerns for pneumonia, her persistent respiratory failure, she has been on Versed, so might be over 48 hours before she starts following commands, she has persistent renal failure but low urine output, discussed her sacral decubitus ulcer that might need debridement in the near future, discussed worsening respiratory if failure on extubation possibly requiring trach, her poor functional status at baseline. For now daughter does not want a trach, she wants us to continue medical interventions, and see how she does, she is heading down to [place] for work, but would like us to remain in touch with her Vitals/I&O/Wt Last Vital Signs Temp 98.8 F 01/27/23 12:30 Pulse 94 01/27/23 12:30 Resp 14 01/27/23 11:11 BP 95/75 01/27/23 12:30 Pulse Ox 95 01/27/23 12:30 O2 Del Method 01/27/23 12:30 O2 Flow Rate 2 01/23/23 04:00 FiO2 30 01/27/23 12:30 01/26/23 01/27/23 01/27/23 22:59 06:59 14:59 Intake Total 1466.598 / 1801.122 32.041 / 1833.163 555 / 555 Output Total 0 / 0 Balance 1466.598 / 1801.122 32.041 / 1833.163 555 / 555 Physical Exam Const: COMMON NORMALS: no acute distress OTHER: Intubated, endotracheal tube in place Right PICC line in place Right dialysis catheter in place Suprapubic catheter in place Eye: OTHER: Pupils equal, round reactive to light Resp: COMMON NORMALS: normal respiratory effort, No retractions, No use of accessory muscles and clear to auscultation bilaterally AUSCULTATION: clear to auscultation bilaterally Cardio: COMMON NORMALS: regular rate, regular rhythm, S1 normal heart sound present and S2 normal heart sound present RATE: regular rate RHYTHM: regular rhythm HEART SOUNDS: S1 normal heart sound present and S2 normal heart sound present GI: COMMON NORMALS: Normal to inspection, nondistended, normoactive bowel sounds present and non-tender Extremity: COMMON NORMALS: no pedal edema Urinary Catheter Management: Suprapubic: Cath Placed During This Visit: no Reason for Continuing Indwelling Catheter: Accurate Measurement of Urinary Output in Critically Ill Patients Data 01/27/23 04:32 01/27/23 04:32 Micro: Microbiology 01/22/23 09:55 Blood Culture - Final Blood NO GROWTH AFTER 5 DAYS 01/22/23 09:53 Blood Culture - Final Blood NO GROWTH AFTER 5 DAYS 01/25/23 12:50 Gram Stain - Final Lung Left Lower Lobe Bronchoalveolar Lavage Culture - Preliminary Coag positive Staphylococcus 01/23/23 Unknown Wound Culture - Preliminary Other Source Coag positive Staphylococcus Gram Negative Rods 01/25/23 09:40 Gram Stain - Final Sputum - Endotracheal Tube Aspirate Sputum Culture - Preliminary Coag positive Staphylococcus 01/23/23 Unknown Gram Stain - Final Sputum - Endotracheal Tube Aspirate Sputum Culture - Final Escherichia coli 01/25/23 08:36 MRSA Culture - Final Nose 01/25/23 08:36 Urine Culture - Preliminary Urine Suprapubic Gram Negative Rods 01/23/23 Unknown Urine Culture - Preliminary Urine Suprapubic Coag positive Staphylococcus Gram Negative Rods 01/25/23 08:40 Blood Culture - Preliminary Blood NEGATIVE TO DATE 01/25/23 08:29 Blood Culture - Preliminary Blood NEGATIVE TO DATE A&P Assessment and plan (1) Rhabdomyolysis: (2) Sepsis: (3) Acute encephalopathy: (4) Acute respiratory failure with hypoxia: (5) Hydronephrosis, left: (6) NSTEMI (non-ST elevated myocardial infarction): (7) Metabolic acidosis: (8) Neurogenic bladder: (9) Diabetes mellitus, type II: (10) Dyslipidemia: (11) Acute kidney injury: (12) Acute pyelonephritis: (13) BMI 37.0-37.9, adult: (14) Suprapubic catheter: (15) Status post cystoscopy with ureteral stent placement: (16) CVA (cerebral vascular accident): (17) Deep tissue injury: (18) Metabolic acidosis: (19) Staphylococcal pneumonia: (20) Pneumonia: (21) MRSA pneumonia: Plan Acute hypoxic respiratory failure -Secondary to pneumonia, concerns for MRSA pneumonia -Some component related to fluid overload and pulmonary edema Plan -Currently intubated, off sedation, on mechanical ventilation -Minimize FiO2, minimize tidal volume -Daily spontaneous breathing trials as requested -Levophed to maintain MAP greater than 65 -Currently on broad-spectrum antibiotic therapy vancomycin, broaden to Primaxin -Metabolic acidosis, received 2 A of bicarb, started on bicarb drip -Fluconazole added for antifungal coverage -Follow repeat blood cultures so far negative, sputum cultures staph species, urine cultures staph species/Proteus/gram-negative rods -No acute need for dialysis today -Full code -Heparin drip for DVT prophylaxis Pneumonia -Status post bronchoscopy -Bronchiolar lavage cultures growing coagulase positive staphylococci, with E. coli -MRSA nares positive UTI, pyelonephritis Urine cultures growing coagulase positive staphylococci Gram-negative rods, Proteus, Acute encephalopathy, intubated -Monitor mentation off sedation Acute pyelonephritis -On broad-spectrum antibiotic therapy vancomycin, Zosyn -Fluconazole added for antifungal coverage -Status swap out bilateral ureteral stent, with larger stent, drainage of high- pressure sediment from the left and stent was placed -Continues to have sediment in urine -Monitor urine cultures, monitor blood cultures -Tylenol for fevers -Monitor creatinine, monitor urine output Acute renal failure on chronic kidney disease -Likely multifactorial -From sepsis -From pyelonephritis -Renal ultrasound does show left hydronephrosis -CT abdomen pelvis shows ?Bilateral ureteral stents in good position with bilateral moderate renal pelvic dilatation. -Status post swap of bilateral ureteral stent -Avoid nephrotoxic agents -Monitor creatinine, monitor urine output -Nephrology on consult Metabolic acidosis r secondary acute renal failure Sepsis, secondary to acute pyelonephritis Persistent fevers, as above Status post cystoscopy with ureteral stent placement -Had bilateral ureteral stents placed January 14, [address] Gama -CT abdomen pelvis shows ?Bilateral ureteral stents in good position with bilateral moderate renal pelvic dilatation. -Status post swap of bilateral ureteral stents Suprapubic catheter in place -Monitor Hypertension, hold blood pressure medication Hyperglycemia with type 2 diabetes mellitus -Lantus 10 units every 12 hours -Monitor sliding scale History of CVA -History of multiple CVAs -With left hemiparesis, requires assistance with most ADLs -Can feed herself of the right hand -Chronically on Plavix History of seizures, continue Topamax Sacral decubitus ulcer stage I present on admission, continue to monitor a possible source of infection, will consider repeat CAT scan if fever trend does not improve, will require surgical consultation Obesity Spoke to urology, spoke to nephrology, urology, spoke to pulmonary, spoke to nursing staff Attestations Medical Necessity Statement*: Patient requires hospitalization for concerns for MRSA pneumonia, E. coli low-dose sputum cultures aspiration pneumonia, renal failure, sacral decubitus ulcer, UTI, pyelonephritis, Coding Level of Care Code Critical Care >/= 30 minutes Critical care time (in minutes): 50 The high probability of a clinically significant, sudden or life threatening deterioration, as referenced in this documentation, required my full and direct attention, intervention and personal management. The critical care time shown is in addition to time spent performing any reported separately billable procedures and includes the following: [x] Data and vital sign review and interpretation [x ] Patient assessment, examination and intervention [x] Medication orders and management [x] Patient/Family updates as able [x] Care Coordination and Documentation. Diagnoses Rhabdomyolysis M62.82 Sepsis A41.9 Acute encephalopathy G93.40 Acute respiratory failure with hypoxia J96.01 Hydronephrosis, left N13.30 NSTEMI (non-ST elevated myocardial infarction) I21.4 Metabolic acidosis E87.20 Neurogenic bladder N31.9 Diabetes mellitus, type II E11.9 Dyslipidemia E78.5 Acute kidney injury N17.9 Acute pyelonephritis N10 BMI 37.0-37.9, adult Z68.37 Suprapubic catheter Z93.59 Status post cystoscopy with ureteral stent placement Z96.0 CVA (cerebral vascular accident) I63.9 Deep tissue injury T14.8XXA Metabolic acidosis E87.20 Staphylococcal pneumonia J15.20 Pneumonia J18.9 MRSA pneumonia J15.212
--- NOTE | 2023-01-27 13:41 | PM.PN ---
Subjective Subjective: -Patient seen today at bedside -intubated and sedated -Hemodynamically stable -FiO2 down 30% and PEEP down to 8 and saturating well -Sedation was tapered off completely yesterday night-she opens her eyes but does not follow commands yet. We will continue with awakening trial - No overnight fever spikes; her BAL cultures grew left lower lobe coagulase positive staph-currently she is on vancomycin -Received hemodialysis yesterday. ABG with pH 7.30 and potassium 3.4 -Other labs and imaging reviewed Medications: Reviewed: Yes Vitals/I&O/Wt Last Vital Signs Temp 98.8 F 01/27/23 12:30 Pulse 94 01/27/23 12:30 Resp 14 01/27/23 11:11 BP 95/75 01/27/23 12:30 Pulse Ox 95 01/27/23 12:30 O2 Del Method 01/27/23 12:30 O2 Flow Rate 2 01/23/23 04:00 FiO2 30 01/27/23 12:30 01/26/23 01/27/23 01/27/23 22:59 06:59 14:59 Intake Total 1466.598 / 1801.122 32.041 / 1833.163 555 / 555 Output Total 0 / 0 Balance 1466.598 / 1801.122 32.041 / 1833.163 555 / 555 Physical Exam Narrative: PHYSICAL EXAM: General: lying in bed, opening eyes-does not follow commands HEENT:NCAT, PERRLA, EOMI Neck: Supple Lungs: Coarse crackles especially in left lower lung zone Heart: s1/s2, RRR Abd: soft, NT, ND, BS + Normoactive Extremities: No edema CUTTER AND EDGE TRIMMER: sedated and limited CUTTER AND EDGE TRIMMER exam possible. SKIN: no rash, stage II sacral decubiti ulcer LDA: # CVC: Right arm PICC line 01/23/2023 # HD Cath : Right IJ hemodialysis catheter 01/24/2023 #Suprapubic Root: Urinary Catheter Management: Suprapubic: Cath Placed During This Visit: no Reason for Continuing Indwelling Catheter: Accurate Measurement of Urinary Output in Critically Ill Patients Data 01/27/23 04:32 01/27/23 04:32 Other Labs: Radiology Impressions Abdomen/Pelvis CT 01/22/23 10:07 Impression: 1. Bilateral ureteral stents in good position with bilateral moderate renal pelvic dilatation. 2. Negative for acute intra-abdominal or pelvic abnormalities. Renal Ultrasound 01/23/23 07:51 IMPRESSION: Moderate left hydronephrosis. Chest CTA 01/24/23 14:12 IMPRESSION: 1. No CT findings of pulmonary embolus. 2. Findings suggestive of bilateral pneumonia, particularly mid and lower lungs and more prominent posteriorly within the lower lungs. No significant associated pleural effusion. 3. Mild arteriosclerosis thoracic aorta and coronary artery calcification. 4. Endotracheal catheter and right internal jugular central venous catheter appear in good position. Tip of the nasogastric tube appears just distal to the GE junction and consider advancement. Chest X-Ray 01/27/23 07:00 IMPRESSION: 1. NG tube tip is at the diaphragmatic hiatus. The tube should be advanced 10-15 cm for ideal position. 2. Satisfactory endotracheal tube position. 3. PICC line tip is in the lower SVC near the cavoatrial junction. 4. Right internal jugular central line tip is in the upper SVC. Laboratory Results WBC 11.2 10^3/uL (4.0-10.0) H 01/27/23 04:32 RBC 3.28 10^6/uL (4.1-5.3) L 01/27/23 04:32 Hgb 8.5 g/dL (11.5-15.3) L 01/27/23 04:32 Hct 28.3 % (37.0-47.0) L 01/27/23 04:32 MCV 86.3 fl (81-99) 01/27/23 04:32 MCH 25.9 pg (28.0-34.0) L 01/27/23 04:32 MCHC 30.0 g/dL (30.0-36.0) D 01/27/23 04:32 RDW 14.6 % (12.1-15.1) 01/27/23 04:32 Plt Count 299 10^3/cmm (130-400) 01/27/23 04:32 MPV 9.5 fL (7.4-10.4) 01/27/23 04:32 Neut % (Auto) 81.7 % 01/27/23 04:32 Lymph % (Auto) 9.0 % 01/27/23 04:32 Duchesne % (Auto) 7.1 % 01/27/23 04:32 Eos % (Auto) 0.4 % 01/27/23 04:32 Baso % (Auto) 0.4 % 01/27/23 04:32 Neut # (Auto) 9.19 10^3/uL (1.8-7.7) H 01/27/23 04:32 Lymph # (Auto) 1.0 10^3/uL (0.8-4.8) 01/27/23 04:32 Duchesne # (Auto) 0.8 10^3/uL (0.2-0.9) 01/27/23 04:32 Eos # (Auto) 0.0 10^3/uL (0.0-0.8) 01/27/23 04:32 Baso # (Auto) 0.0 10^3/uL (0.0-0.1) 01/27/23 04:32 Nucleated RBC % (auto) 0 % 01/27/23 04:32 Nucleated RBCs # 0.0 /100WBC 01/27/23 04:32 PT 13.90 SECONDS (12.1-14.9) 01/27/23 04:32 INR 1.03 (0.8-1.2) 01/27/23 04:32 APTT 26.7 SECONDS (23.9-36.7) 01/24/23 20:37 Fibrinogen 895 mg/dL (174-498) H 01/24/23 20:37 Fibrin Degrad Products Pos, >=40 ug/mL (NEG) H 01/24/23 20:37 D-Dimer >= 20.00 ug/mIFEU (0-0.59) H 01/24/23 20:37 Specimen Type Arterial 01/27/23 04:00 Sample Site Radial, right 01/27/23 04:00 ABG pH 7.30 (7.35-7.45) L 01/27/23 04:00 ABG pCO2 37.4 mmHg (35-45) 01/27/23 04:00 ABG pO2 94.7 mmHg (80.0-100.0) 01/27/23 04:00 ABG HCO3 18.4 mmol/L (22-26) L 01/27/23 04:00 ABG O2 Saturation 92.9 01/24/23 17:01 ABG Base Excess -7.4 mmol/L (-2.0-2.0) L 01/27/23 04:00 Mathieu Test Pos 01/27/23 04:00 A-a O2 Gradient 32.5 mmHg (5-10) H 01/24/23 17:01 Hematocrit 23.3 % (37-47) L 01/27/23 04:00 Hgb O2 Saturation 91.1 % (95-100) L 01/24/23 17:01 Carboxyhemoglobin 1.2 %THgb (0.4-20.1) 01/24/23 17:01 Methemoglobin 0.8 % (0.4-1.5) 01/24/23 17:01 Total Hemoglobin 10.0 g/dL (12-16) L 01/24/23 17:01 Sodium 142.0 mmol/L (131-143) 01/24/23 17:01 Potassium 2.9 mmol/L (3.5-5.0) L 01/24/23 17:01 Glucose 148.0 mg/dL (70-115) H 01/24/23 17:01 Ionized Calcium 1.1 mmol/L (1.1-1.4) 01/24/23 17:01 O2 Delivery Device Vent 01/27/23 04:00 FiO2 30.0 % 01/27/23 04:00 Tidal Volume 0.45 01/27/23 04:00 PEEP 8.0 cmH20 01/26/23 09:35 [place] Cleaner ID [email or web address] 01/27/23 04:00 Sodium 138 mmol/L (136-145) 01/27/23 04:32 Potassium 3.4 mmol/L (3.5-5.1) L 01/27/23 04:32 Chloride 96 mmol/L (98-107) L 01/27/23 04:32 Carbon Dioxide 17 mmol/L (22-29) L 01/27/23 04:32 Anion Gap 28.4 (5-19) H 01/27/23 04:32 BUN 29 mg/dL (6-20) H 01/27/23 04:32 Creatinine 4.1 mg/dL (0.5-0.9) H 01/27/23 04:32 GFR Calculation 11.1 mL/min (90-130) L 01/27/23 04:32 Glucose 153 mg/dL (65-115) H 01/27/23 04:32 POC Glucose 128 mg/dL (70-110) H 01/27/23 12:06 Calculated Osmolality 295 mOsm/kg (285-295) 01/27/23 04:32 Lactic Acid 1.5 mmol/L (0.5-2.2) 01/22/23 09:53 Lactate 0.9 mmol/L (0.5-2.2) 01/27/23 04:32 Calcium 8.0 mg/dL (8.5-10.5) L 01/27/23 04:32 Phosphorus 6.8 mg/dL (2.5-4.5) H 01/27/23 04:32 Magnesium 2.0 mg/dL (1.7-2.3) 01/27/23 04:32 Total Bilirubin 0.2 mg/dL (0.15-1.2) 01/27/23 04:32 AST 22 U/L (0-32) 01/27/23 04:32 ALT 8 U/L (0-33) 01/27/23 04:32 Alkaline Phosphatase 91 U/L (35-105) 01/27/23 04:32 Creatine Kinase 1774 U/L (26-192) H* D 01/27/23 04:32 Troponin T Baseline 44 ng/L (0-10) H 01/23/23 08:04 Troponin T 120 Minute 45.74 ng/L (0-10) H 01/23/23 10:22 Delta Troponin T 1.74 ABS# (0-10) 01/23/23 10:22 Troponin T Hi Sens 6Hr 50.27 ng/L (0-10) H 01/23/23 14:09 Troponin T Hi Sens 6Hr Delta 6.27 ng/L (0-12) 01/23/23 14:09 C-Reactive Protein 324.6 mg/L (0.0-4.9) H 01/27/23 04:32 NT-Pro-B Natriuret Pep 4816 pg/mL (0-125) H 01/27/23 04:32 Total Protein 6.6 g/dL (6.6-8.7) 01/27/23 04:32 Albumin 2.8 g/dL (3.5-5.2) L 01/27/23 04:32 Globulin 3.8 g/dL (1.3-4.6) 01/27/23 04:32 Procalcitonin 6.73 ng/mL (0-0.5) H 01/27/23 04:32 Urine Color Yellow (Yellow) 01/22/23 09:43 Urine Appearance Cloudy (CLEAR) A 01/22/23 09:43 Urine pH 8 (5-7) H 01/22/23 09:43 Ur Specific [place] 1.015 (1.005-1.030) 01/22/23 09:43 Urine Protein 1+ (Negative) H 01/22/23 09:43 Urine Glucose (UA) Norm (Normal) 01/22/23 09:43 Urine Ketones Negative (Negative) 01/22/23 09:43 Urine Blood 3+ (Negative) H 01/22/23 09:43 Urine Nitrate Negative (Negative) 01/22/23 09:43 Urine Bilirubin Neg (Negative) 01/22/23 09:43 Prot Sulfosalicylic Acd Positive (Negative) 01/22/23 09:43 Urine Urobilinogen Norm mg/dL (Negative) 01/22/23 09:43 Ur Leukocyte Esterase 2+ (Negative) H 01/22/23 09:43 Urine RBC 10-15 /hpf (0-2) H 01/22/23 09:43 Urine WBC >100 /hpf (0-5) H 01/22/23 09:43 Ur Squamous Epith Cells 0-4 /hpf (0-5) H 01/22/23 09:43 Amorphous Sediment Not Reportable 01/22/23 09:43 Urine Bacteria 1+ /hpf (NONE) H 01/22/23 09:43 Urine Mucus 3+ /hpf 01/22/23 09:43 Nasal Influ A H1 2008 PCR Not detected (NOT DETECT) 01/25/23 08:45 Bronch Specimen Source Left lower lobe 01/25/23 12:50 Bronchial Fluid Color White 01/25/23 12:50 Bronchial Fluid Appearance Cloudy (CLEAR) 01/25/23 12:50 Bronchial Fluid WBC 1160 /uL 01/25/23 12:50 Bronchial Fluid RBC 12 10^3/uL 01/25/23 12:50 Bronch Cells Counted 200 01/25/23 12:50 Bronchial Neutrophils 97.00 % (0.9-2.3) H 01/25/23 12:50 Bronchial Lymphocytes 2.00 % (10.71-12.91) L 01/25/23 12:50 Bronchial Macrophages 1.00 % (83.6-86.8) L 01/25/23 12:50 Bronchial Diff Comment Yes 01/25/23 12:50 Random Vancomycin 19.8 ug/mL (20.0-40.0) L 01/26/23 05:44 Serum Ketones Negative (Negative) 01/22/23 09:16 Adenovirus (PCR) Not detected (NOT DETECT) 01/25/23 08:45 C. pneumoniae DNA (PCR) Not detected (NOT DETECT) 01/25/23 08:45 Coronavirus 229E (PCR) Not detected (NOT DETECT) 01/25/23 08:45 Hep Bs Antigen Non-reactive (Nonreactive) 01/24/23 11:27 Hep Bs Antibody 3.5 (11.5-1000) L 01/24/23 11:27 Hep B Core Total Ab Non-reactive (Nonreactive) 01/24/23 11:27 Hepatitis C Antibody Non-reactive (Nonreactive) 01/24/23 11:27 Human Metapneumovir PCR Not detected (NOT DETECT) 01/25/23 08:45 Influenza A (H1) PCR Not detected (NOT DETECT) 01/25/23 08:45 Influenza A (H3) PCR Not detected (NOT DETECT) 01/25/23 08:45 Influenza Type A Ag negative (Negative) 01/22/23 11:02 Influenza Type A (PCR) Not detected (NOT DETECT) 01/25/23 08:45 Influenza Type B Ag negative (Negative) 01/22/23 11:02 Influenza Type B (PCR) Not detected (NOT DETECT) 01/25/23 08:45 M. pneumoniae (PCR) Not detected (NOT DETECT) 01/25/23 08:45 Parainfluenza 1 (PCR) Not detected (NOT DETECT) 01/25/23 08:45 Parainfluenza 2 (PCR) Not detected (NOT DETECT) 01/25/23 08:45 Parainfluenza 3 (PCR) Not detected (NOT DETECT) 01/25/23 08:45 Parainfluenza 4 (PCR) Not detected (NOT DETECT) 01/25/23 08:45 RSV Type A (PCR) Not detected (NOT DETECT) 01/25/23 08:45 RSV Type B (PCR) Not detected (NOT DETECT) 01/25/23 08:45 Entero/Rhino (PCR) Not detected (NOT DETECT) 01/25/23 08:45 SARS-CoV-2 (PCR) Not detected (NOT DETECT) 01/25/23 08:45 Micro: Microbiology 01/22/23 09:55 Blood Culture - Final Blood NO GROWTH AFTER 5 DAYS 01/22/23 09:53 Blood Culture - Final Blood NO GROWTH AFTER 5 DAYS 01/25/23 12:50 Gram Stain - Final Lung Left Lower Lobe Bronchoalveolar Lavage Culture - Preliminary Coag positive Staphylococcus 01/23/23 Unknown Wound Culture - Preliminary Other Source Coag positive Staphylococcus Gram Negative Rods 01/25/23 09:40 Gram Stain - Final Sputum - Endotracheal Tube Aspirate Sputum Culture - Preliminary Coag positive Staphylococcus 01/23/23 Unknown Gram Stain - Final Sputum - Endotracheal Tube Aspirate Sputum Culture - Final Escherichia coli 01/25/23 08:36 MRSA Culture - Final Nose 01/25/23 08:36 Urine Culture - Preliminary Urine Suprapubic Gram Negative Rods 01/23/23 Unknown Urine Culture - Preliminary Urine Suprapubic Coag positive Staphylococcus Gram Negative Rods 01/25/23 08:40 Blood Culture - Preliminary Blood NEGATIVE TO DATE 01/25/23 08:29 Blood Culture - Preliminary Blood NEGATIVE TO DATE A&P Assessment and plan (1) Acute encephalopathy: (2) Acute respiratory failure with hypoxia: (3) CVA (cerebral vascular accident): (4) Acute kidney injury: (5) Diabetes mellitus, type II: (6) Neurogenic bladder: (7) Status post cystoscopy with ureteral stent placement: (8) Metabolic acidosis: (9) Acute pyelonephritis: (10) CKD (chronic kidney disease): (11) Goals of care, counseling/discussion: Plan ASSESSMENT/PLAN:Overall: 58-year-old Ms. Erika Shen with multiple CVAs with left hemiplegia, dependent on ADLs, neurogenic bladder s/p suprapubic catheter, recurrent UTIs, diabetes, CKD presented to emergency room with altered mental status, nausea, vomiting-found to be in sepsis based on labs-urine cultures growing persistent Proteus resistant to ciprofloxacin nitrofurantoin and tetracycline-went into acute hypoxic respiratory failure-secondary to fluid overload/aspiration pneumonia prompting intubation and mechanical ventilation support and developing sepsis induced EFREN on CKD stage III-prompting to start hemodialysis. NEURO: DIAGNOSIS-PLAN: {neuro:54962} #Altered mental status-secondary to recurrent UTI/aspiration pneumonia -She is off all type of sedation-opening eyes but not following commands - #History of multiple CVAs-with residual left hemiplegia -At baseline patient is dependent on ADLs -She is on Plavix and statin PULM: {PULMICU:91831} #Acute hypoxic respiratory failure-secondary to fluid overload/aspiration pneumonia -CTA 01/24/2023-did not show any evidence of PE, however showed left lower lobe consolidation -Ventilator settings CMV 400/14/PEEP 8/ 30% FiO2 - abg today with ph 7.30 metabolic acidosis -Patient is on hemodialysis -Patient is covered with vancomycin and meropenam for aspiration pneumonia-left lower lobe BAL cultures show coagulase positive staph-final cultures pending CVS: #Hemodynamically stable -Echocardiogram 01/23/2023-normal GI: {Gastro ICU:80807} #Diet: TF nephro #GI prophylaxis #PPI #LFTs: Within normal limits #RENAL: {Renal ICU:98727} #EFREN on CKD stage III #Metabolic acidosis requiring hemodialysis -Worsening renal function and decreasing urine output and metabolic acidosis -Nephrology on board -Hemodialysis catheter placed 01/24/2023-patient had 2 sessions of hemodialysis -Monitor BUN, creatinine, urine output, electrolytes #complicated urological history with neurogenic bladder, stones, suprapubic catheter as well as recurrent obstructive pyelonephritis.? - s/p cystoscopy with left ureteroscopy and left-sided laser lithotripsy with left ureteral stent placement along with removal of a prior right ureteral stent followed by introduction of a new stent and changing of her suprapubic catheter on January 14, 2023.? -01/25/23 she underwent bilateral ureteral stent exchange HEM: #Leukocytosis-trending down after starting antibiotics #Normal platelets ENDO: #Diabetes -Currently on insulin -moderately controlled sugars -Monitor and adjust insulin scale coverage accordingly ID: #Persistent Proteus obstructive pyelonephritis #Suspected aspiration pneumonia-sputum cultures positive for gram-negative rods #Stage II sacral decubiti -DIC panel showed normal fibrinogen but there were FDP -Currently patient is covered with vancomycin and meropenem -Blood cultures negative so far; repeat Urine cultures show gram negative rods - pt underwent bilateral ureteral stent exchange -Patient underwent bronchoscopy 01/25/2023 and noted mucous plugs in left airways-which were suctioned right away. Cell count is neutrophil predominant and BAL cultures from left lower lobe showed coagulase positive staph -Monitor fever curve and white count -Recommended general surgery consultation for sacral wounds #Goals of care discussion -Patient's [id number], who is next of kin, was at bedside. Explained the prognosis that patient is currently dialysis dependent but pulmonary standpoint currently she is on minimal settings and today we will taper off sedation and do awakening trial over the next 24 to 48 hours-we will be reviewed patient we will plan to extubate. With patient being baseline with multiple CVAs and left side paralysis and dependent on ADLs-she wants to discuss with other family members regarding future goals of care including reintubation, long-term acute care facility placement, comfort measures Code Status: Full code Disposition: ICU Critically ill:{Critical illness:71451} yes MD discussed with: {Discussed with:80700} hospitalist, RT, RN taking care of the patient ICU CHECKLIST: Problem list updated Verbal orders reviewed and signed Analgesia: Fentanyl Glycemic Control: Insulin Nutrition: TF nephro Restraint Renewal (within 24 hrs): Yes Ulcer Prophylaxis: PPI Chemical Thromboprophylaxis: Prophylaxis: Heparin Mechanical Thromboprophylaxis: scds Need for Central line: yes for multiple medications Need for Root catheter: Yes Attestations Medical Necessity Statement*: Intubated for hypoxic respiratory failure; on hemodialysis for renal failure-need close ICU monitoring Time Spent in Patient Care: Greater than 35 minutes (>than 50% of time spent in counselling and/or direct pt care on unit). Critical Care Time: This patient has a high probability of? clinically sig nificant, sudden o r life threatening deterioration of the patient's (pul monary, neurologic al, renal, endocri ne) systems requir ed my full, direct attention, the hi ghest level of jesús bradley preparednes s for urgent inter vention and person al management.? I managed/supervised life or organ sup porting interventi ons that required frequent physician assessment.? I de voted my full atte ntion in the ICU t o the direct care of this patient fo r the period of ti me indicated above .? Time I spent wi th family or surro gate(s) is include d only if the haresh ent was incapable of providing neces ozzie information o r participating in decision making.? This time includ es the following s ervices provided: Telemetry review Mechanical Ventila tion Hemodynamic i nterpretation, ass essment and manage ment Review and in terpretation of CX R Review and inter pretation of lab v alues Review and i nterpretation of m icrobiologic data and culture result s Review of medica tions and administ ration Review and interpretation of Nutrition requirem ents and managemen t Discussion of miko dominguez with othe r consultants and services Clinical update to family m embers [x] Data a nd vital sign revi ew and interpretat ion [x] Patient as sessment, examinat ion and interventi on [x] Documentati on [x] Medication orders and managem ent Time spent fo r teaching as well as performing pro cedures are billed separately and is not included in t his note ? Critica l Care Time (min): 47 Coding Level of Care Code Acute Code for [facility] Fwd Diagnoses Acute encephalopathy G93.40 Acute respiratory failure with hypoxia J96.01 CVA (cerebral vascular accident) I63.9 Acute kidney injury N17.9 Diabetes mellitus, type II E11.9 Neurogenic bladder N31.9 Status post cystoscopy with ureteral stent placement Z96.0 Metabolic acidosis E87.20 Acute pyelonephritis N10 CKD (chronic kidney disease) N18.9 Goals of care, counseling/discussion Z71.89 Time Spent (min) 47
--- NOTE | 2023-01-27 14:00 | PC.NURSE ---
Wasted Fent/Versed Drip Wasted 100mls of Fentanyl and 70 mls of Versed with OCTAVIO SOLANO.
--- NOTE | 2023-01-27 15:55 | PC.HD ---
Levophed required during dialysis d/t hypotension. Treatment ended early d/t machine pressures dropping, causing blood pump to stop every 60 seconds, blood returned to look for cause, no clots or cause identified, Dr Lepe said OK not to restart.
[2023-01-27 17:57] LABS: Glucose Point of Care 142 mg/dL (70-110)
--- NOTE | 2023-01-27 18:26 | PC.NURSE ---
witness wasting of narcotic fentanyl and versed
[2023-01-27 20:22] LABS: Glucose Point of Care 98 mg/dL (70-110)
[2023-01-28] VITALS (37 sets, daily range): BP systolic 92–133; BP diastolic 55–91; PULSE 83–126; RESP 14–25; TEMP 36.8–37.8; O2SAT 55–100
[2023-01-28 02:36] LABS: Basophils % 0.4 %; Eosinophils # 0.1 10^3/uL (0.0-0.8); Eosinophils % 1.3 %; Hematocrit 25.6 % (37.0-47.0); Hemoglobin 7.6 g/dL (11.5-15.3); Lymphocytes % 10.6 %; Mean Corpuscular HGB Conc 29.7 g/dL (30.0-36.0); Mean Corpuscular Hemoglobin 25.9 pg (28.0-34.0); Mean Corpuscular Volume 87.1 fl (81-99); Mean Platelet Volume 9.4 fL (7.4-10.4); Monocytes # 0.7 10^3/uL (0.2-0.9); Monocytes % 7.8 %; Neutrophils # 7.42 10^3/uL (1.8-7.7); Neutrophils % 78.2 %; Nucleated Red Blood Cells % 0 %; Platelet Count 305 10^3/cmm (130-400); Red Blood Count 2.94 10^6/uL (4.1-5.3); Red Cell Distribution Width 14.5 % (12.1-15.1); White Blood Count 9.5 10^3/uL (4.0-10.0)
[2023-01-28] MEDS: sodium chloride 0.9% 1,000 ML 50 ML IV (02:40)
[2023-01-28 02:53] LABS: INR 1.07 (0.8-1.2)
[2023-01-28 02:55] LABS: Lactate (Lactic Acid level) 0.9 mmol/L (0.5-2.2)
[2023-01-28 03:00] LABS: Alanine Aminotransferase 9 U/L (0-33); Albumin Level 2.7 g/dL (3.5-5.2); Alkaline Phosphatase 80 U/L (35-105); Anion Gap 27.4 (5-19); Aspartate Amino Transferase 28 U/L (0-32); Blood Urea Nitrogen 36 mg/dL (6-20); C Reactive Protein 301.8 mg/L (0.0-4.9); Calcium 7.9 mg/dL (8.5-10.5); Carbon Dioxide 16 mmol/L (22-29); Chloride 102 mmol/L (98-107); Globulin 2.9 g/dL (1.3-4.6); Glucose 140 mg/dL (65-115); Osmolality Calculated 305 mOsm/kg (285-295); Phosphorus 7.3 mg/dL (2.5-4.5); Potassium 3.4 mmol/L (3.5-5.1); Sodium 142 mmol/L (136-145); Total Bilirubin 0.2 mg/dL (0.15-1.2); Total Protein 5.6 g/dL (6.6-8.7)
[2023-01-28 03:05] LABS: NT Pro B Type Natriuretic Pept 4233 pg/mL (0-125); Procalcitonin 3.68 ng/mL (0-0.5)
[2023-01-28 03:45] LABS: ABG PCO2 36.8 mmHg (35-45); ABG PH Result 7.29 (7.35-7.45); Arterial Blood Gas Hematocrit 21.4 % (37-47); Base Excess ABG -8.1 mmol/L (-2.0-2.0); Blood Gas Allen Test Pos; Blood Gas Sample Site Radial, right; Blood Gas Sample Type Arterial; Blood Gas Tidal Volume 0.45; HCO3 ABG 17.7 mmol/L (22-26); Oxygen Device VENT; PO2 ABG 69.5 mmHg (80.0-100.0)
[2023-01-28 03:50] LABS: Creatine Phosphokinase 2218 U/L (26-192)
[2023-01-28] MEDS: heparin 5,000 unit/mL INJ 1 mL 5000 UNIT SUBCUT (05:58)
[2023-01-28] MEDS: clopidogrel 75 mg Tablet PO (06:02)
[2023-01-28] MEDS: topiramate 100 mg Tablet PO (06:02)
[2023-01-28 08:10] LABS: Glucose Point of Care 126 mg/dL (70-110)
[2023-01-28] MEDS: albumin 12.5 GM/50 ML VIAL IV (08:50)
--- NOTE | 2023-01-28 09:13 | PC.NURSE ---
Flucanozole and Protonix administration delay due to Dialysis in progress.
[2023-01-28] MEDS: escitalopram 10 mg Tablet 20 MG PO (10:21)
[2023-01-28] MEDS: atorvastatin 40 mg Tablet PO (10:22)
[2023-01-28] MEDS: pantoprazole 40 mg SDV IVP (10:36)
[2023-01-28] MEDS: meropenem 500 MG in sodium chloride 0.9% (plus) 50 ML 100 MG IV (10:37)
[2023-01-28] MEDS: fluconazole premix 200 MG/100 ML PREMIX 100 MG IV (10:38)
[2023-01-28] MEDS: heparin, porcine 1,000 unit/mL INJ 10 mL 10000 UNIT INTRACATH (10:40)
[2023-01-28] MEDS: HYDROmorphone 1 mg/mL INJ 1 mL IVP (13:32)
--- NOTE | 2023-01-28 13:45 | PC.NURSE ---
Terminal extubation done, after Diladudid admin as per Dr Silva. OG removed. Pt remains unresponsive, snoring respirations noted. O2 sats at 86%
--- NOTE | 2023-01-28 15:17 | P.PN_ITS ---
Subjective Subjective: This morning patient was evaluated along Dr. Dang, patient is not able to follow commands, open eyes to verbal and painful stimuli Minimal vent settings 100 mL urine in the bag, patient getting dialyzed Second time I visited her when family was around Her [id number] had decided to pursue comfort care and terminally extubate her She is concerned that her poor quality of life is not something that she ever wanted for Erika Shen and she would never opt for tracheostomy and now she is dependent on dialysis she has asked us to start comfort care and terminally extubate her Patient was extubated around 2 PM Patient is still not able to follow commands, O2 saturation 50% on room air, patient is obtunded Vitals/I&O/Wt Last Vital Signs Temp 98.2 F 01/28/23 12:33 Pulse 97 01/28/23 14:00 Resp 17 01/28/23 14:00 BP 112/71 01/28/23 14:00 Pulse Ox 78 L 01/28/23 14:00 O2 Del Method 01/28/23 14:00 O2 Flow Rate 2 01/23/23 04:00 FiO2 50 01/28/23 11:49 01/28/23 01/28/23 01/28/23 06:59 14:59 22:59 Intake Total 953.333 / 1508.333 330 / 330 Output Total 200 / 650 3300 / 3300 Balance 753.333 / 858.333 -2970 / -2970 Weight last 48 hrs Weight 99.8 kg Weight 104.9 kg Physical Exam Narrative: Patient is obtunded Not able to follow commands Open eyes but not able to make eye contact Currently on room air Purposeless movement of extremities Left-sided weakness Patient is off sedatives, pressors, extubated Edema of lower extremities noted Root catheter in place with 100 mL urine Hypoventilation with shallow breaths Urinary Catheter Management: Suprapubic: Cath Placed During This Visit: no Reason for Continuing Indwelling Catheter: Accurate Measurement of Urinary Output in Critically Ill Patients Data 01/28/23 02:19 01/28/23 02:19 Micro: Microbiology 01/25/23 08:36 Urine Culture - Final Urine Suprapubic Stenotrophomonas maltophilia Methicillin Resis Staph Aureus 01/23/23 10:43 Blood Culture - Final Blood NO GROWTH AFTER 5 DAYS 01/23/23 10:22 Blood Culture - Final Blood NO GROWTH AFTER 5 DAYS 01/25/23 09:40 Gram Stain - Final Sputum - Endotracheal Tube Aspirate Sputum Culture - Final Methicillin Resis Staph Aureus 01/25/23 12:50 Gram Stain - Final Lung Left Lower Lobe Bronchoalveolar Lavage Culture - Final Methicillin Resis Staph Aureus 01/23/23 Unknown Wound Culture - Final Other Source Methicillin Resis Staph Aureus Proteus mirabilis esbl 01/23/23 Unknown Urine Culture - Final Urine Suprapubic Methicillin Resis Staph Aureus Proteus mirabilis A&P Assessment and plan (1) MRSA pneumonia: (2) Rhabdomyolysis: (3) Neurogenic bladder: (4) CVA (cerebral vascular accident): (5) Diabetes mellitus, type II: (6) History of seizure: (7) Depression: (8) ATN (acute tubular necrosis): (9) Bilateral renal stones: (10) Sepsis: (11) Acute encephalopathy: (12) Goals of care, counseling/discussion: Plan Patient was examined twice Goals of care discussed with the family Case was discussed with Dr. Dang Labs reviewed Patient is getting dialyzed After second meeting with the family, [id number] decided to pursue comfort care/hospice care and terminally extubate her Patient is still not able to follow commands Currently she is on room air with comfort measures ICU nurse Avis updated Patient was examined multiple times today Guarded prognosis Dialysis has been stopped Upholstery Repairer has been updated Attestations Medical Necessity Statement*: On comfort care Diagnoses MRSA pneumonia J15.212 Rhabdomyolysis M62.82 Neurogenic bladder N31.9 CVA (cerebral vascular accident) I63.9 Diabetes mellitus, type II E11.9 History of seizure Z87.898 Depression F32.9 ATN (acute tubular necrosis) N17.0 Bilateral renal stones N20.0 Sepsis A41.9 Acute encephalopathy G93.40 Goals of care, counseling/discussion Z71.89
[2023-01-28] MEDS: glycopyrrolate 0.2 mg/mL SDV 2 mL IV (19:16)
--- NOTE | 2023-01-28 19:32 | PC.NURSE ---
Call attempt made to [facility] for referral of patient due to terminal extubation. [facility] software sales representative advised nurse to call back when patient has passed.
[2023-01-28] MEDS: morphine 4 mg/mL SDV 1 mL IVP ×2 (19:53→21:06)
--- NOTE | 2023-01-28 19:56 | P.PN_ITS ---
Subjective Subjective: Patient seen at bedside today She is off sedation for more than 24 hours but no meaningful response BAL cultures grew MRSA-patient is on vancomycin Patient currently looks like will be requiring hemodialysis for the next few weeks at least Hospitalist has lipid goals of care discussion with family regarding poor prognosis-family opted for comfort care -Patient is terminally extubated today afternoon Medications: Reviewed: Yes Vitals/I&O/Wt Last Vital Signs Temp 98.2 F 01/28/23 12:33 Pulse 109 H 01/28/23 18:00 Resp 22 H 01/28/23 18:00 BP 111/74 01/28/23 18:00 Pulse Ox 68 L 01/28/23 18:00 O2 Del Method 01/28/23 18:00 O2 Flow Rate 2 01/23/23 04:00 FiO2 50 01/28/23 11:49 01/28/23 01/28/23 01/28/23 06:59 14:59 22:59 Intake Total 953.333 / 1508.333 330 / 330 Output Total 200 / 650 3300 / 3300 150 / 3450 Balance 753.333 / 858.333 -2970 / -2970 -150 / -3120 Weight last 48 hrs Weight 220 lb 0.341 oz Weight 231 lb 4.238 oz Physical Exam Narrative: PHYSICAL EXAM: General: lying in bed, opening eyes-does not follow commands HEENT:NCAT, PERRLA, EOMI Neck: Supple Lungs: Coarse crackles especially in left lower lung zone Heart: s1/s2, RRR Abd: soft, NT, ND, BS + Normoactive Extremities: No edema TRAFFIC ANALYSIS TECHNICIAN: sedated and limited TRAFFIC ANALYSIS TECHNICIAN exam possible. SKIN: no rash, stage II sacral decubiti ulcer LDA: # CVC: Right arm PICC line 01/23/2023 # HD Cath : Right IJ hemodialysis catheter 01/24/2023 #Suprapubic Root: Urinary Catheter Management: Suprapubic: Cath Placed During This Visit: no Reason for Continuing Indwelling Catheter: Accurate Measurement of Urinary Output in Critically Ill Patients Data 01/28/23 02:19 01/28/23 02:19 Micro: Microbiology 01/25/23 08:36 Urine Culture - Final Urine Suprapubic Stenotrophomonas maltophilia Methicillin Resis Staph Aureus 01/23/23 10:43 Blood Culture - Final Blood NO GROWTH AFTER 5 DAYS 01/23/23 10:22 Blood Culture - Final Blood NO GROWTH AFTER 5 DAYS 01/25/23 09:40 Gram Stain - Final Sputum - Endotracheal Tube Aspirate Sputum Culture - Final Methicillin Resis Staph Aureus 01/25/23 12:50 Gram Stain - Final Lung Left Lower Lobe Bronchoalveolar Lavage Culture - Final Methicillin Resis Staph Aureus 01/23/23 Unknown Wound Culture - Final Other Source Methicillin Resis Staph Aureus Proteus mirabilis esbl 01/23/23 Unknown Urine Culture - Final Urine Suprapubic Methicillin Resis Staph Aureus Proteus mirabilis A&P Assessment and plan (1) Acute encephalopathy: (2) Acute respiratory failure with hypoxia: (3) CVA (cerebral vascular accident): (4) Acute kidney injury: (5) Diabetes mellitus, type II: (6) Neurogenic bladder: (7) Status post cystoscopy with ureteral stent placement: (8) Metabolic acidosis: (9) Acute pyelonephritis: (10) CKD (chronic kidney disease): (11) Goals of care, counseling/discussion: Plan ASSESSMENT/PLAN:Overall: 58-year-old Ms. Erika Shen with multiple CVAs with left hemiplegia, dependent on ADLs, neurogenic bladder s/p suprapubic catheter, recurrent UTIs, diabetes, CKD presented to emergency room with altered mental status, nausea, vomiting- found to be in sepsis based on labs-urine cultures growing persistent Proteus resistant to ciprofloxacin nitrofurantoin and tetracycline-went into acute hypo xic respiratory failure-secondary to fluid overload/aspiration pneumonia prompting intubation and mechanical ventilation support and developing sepsis induced EFREN on CKD stage III-prompting to start hemodialysis. NEURO: DIAGNOSIS-PLAN: {neuro:85983} #Altered mental status-secondary to recurrent UTI/aspiration pneumonia -No meaningful response even with sedation more than 24 hours #History of multiple CVAs-with residual left hemiplegia -At baseline patient is dependent on ADLs -She is on Plavix and statin PULM: {PULMICU:00750} #Acute hypoxic respiratory failure-secondary to fluid overload/aspiration pneumonia -CTA 01/24/2023-did not show any evidence of PE, however showed left lower lobe consolidation -Ventilator settings CMV 400/14/PEEP 8/ 30% FiO2 -Patient is on hemodialysis -Patient is covered with vancomycin and meropenam for aspiration pneumonia-left lower lobe BAL cultures show MRSA CVS: #Hemodynamically stable -Echocardiogram 01/23/2023-normal GI: {Gastro ICU:29889} #Diet: TF nephro #GI prophylaxis #PPI #LFTs: Within normal limits #RENAL: {Renal ICU:36890} #EFREN on CKD stage III #Metabolic acidosis requiring hemodialysis -Worsening renal function and decreasing urine output and metabolic acidosis -Nephrology on board -Hemodialysis catheter placed 01/24/2023-patient had 2 sessions of hemodialysis -Monitor BUN, creatinine, urine output, electrolytes #complicated urological history with neurogenic bladder, stones, suprapubic catheter as well as recurrent obstructive pyelonephritis.? - s/p cystoscopy with left ureteroscopy and left-sided laser lithotripsy with left ureteral stent placement along with removal of a prior right ureteral stent followed by introduction of a new stent and changing of her suprapubic catheter on January 14, 2023.? -01/25/23 she underwent bilateral ureteral stent exchange HEM: #Leukocytosis-trending down after starting antibiotics #Normal platelets ENDO: #Diabetes -Currently on insulin -moderately controlled sugars -Monitor and adjust insulin scale coverage accordingly ID: #Persistent Proteus obstructive pyelonephritis #Suspected aspiration pneumonia-sputum cultures positive for gram-negative rods #Stage II sacral decubiti -DIC panel showed normal fibrinogen but there were FDP -Currently patient is covered with vancomycin and meropenem -Blood cultures negative so far; repeat Urine cultures show gram negative rods - pt underwent bilateral ureteral stent exchange -Patient underwent bronchoscopy 01/25/2023 and noted mucous plugs in left airw ays-which were suctioned right away. Cell count is neutrophil predominant and BAL cultures from left lower lobe showed coagulase positive staph -Monitor fever curve and white count -Recommended general surgery consultation for sacral wounds #Goals of care discussion -Patient's [id number], who is next of kin, was at bedside. Today opted for comfort care Code Status: Full code Disposition: ICU Critically ill:{Critical illness:25224} yes MD discussed with: {Discussed with:34137} hospitalist, RT, RN taking care of the patient ICU CHECKLIST: Problem list updated Verbal orders reviewed and signed Analgesia: Fentanyl Glycemic Control: Insulin Nutrition: TF nephro Restraint Renewal (within 24 hrs): Yes Ulcer Prophylaxis: PPI Chemical Thromboprophylaxis: Prophylaxis: Heparin Mechanical Thromboprophylaxis: scds Need for Central line: yes for multiple medications Need for Root catheter: Yes Attestations 2 Medical Necessity Statement*: Family opted for comfort care Critical Care Time: The high probability of a clinically significant, sudden or life threatening deterioration of the patient's [neurological, pulmonary, renal] system(s) required my full and direct attention, intervention and personal management. The critical care time is as shown. This time is in addition to time spent performing any reported procedures but includes the following: [x] Data and vital sign review and interpretation [x] Patient assessment, examination and intervention [x] Documentation [x] Medication orders and management Coding Level of Care Code Critical Care >/= 30 minutes Diagnoses Acute encephalopathy G93.40 Acute respiratory failure with hypoxia J96.01 CVA (cerebral vascular accident) I63.9 Acute kidney injury N17.9 Diabetes mellitus, type II E11.9 Neurogenic bladder N31.9 Status post cystoscopy with ureteral stent placement Z96.0 Metabolic acidosis E87.20 Acute pyelonephritis N10 CKD (chronic kidney disease) N18.9 Goals of care, counseling/discussion Z71.89 Time Spent (min) 45
--- NOTE | 2023-01-28 20:43 | PC.NURSE ---
Shift note: Pt terminally extubated today. She remains obtunded. Eyes do open spontaneously but not purposefully. Position changes provided at at least every 2 hours for her comfort. Pt does not have any signs of distress noted tis sift. she did received Dilaudid once at time of extubation. family member, Nidia, kept updated on her status at frequent intervals today.
[2023-01-29] VITALS: BP 81/50; PULSE 133; RESP 25; O2SAT 49
[2023-01-29] MEDS: morphine 4 mg/mL SDV 1 mL IVP ×2 (00:13→00:55)
[2023-01-29] MEDS: glycopyrrolate 0.2 mg/mL SDV 2 mL IV (00:13)
[2023-01-29 00:55] VITALS: RESP 25; O2SAT 66
--- NOTE | 2023-01-29 03:00 | P.DES_ITS ---
Discharge Providers DDS Date of Admission: 01/22/23 17:54 Date Summary Completed: 01/30/23 Attending Provider at Admission: Andie Ac MD Time of : 02:33 Attending Provider at Discharge: Hillary Silva MD Primary Care Provider: Vu Neil Jr, MD DS Diagnoses Hospital Diagnoses (1) Acute encephalopathy: (2) Acute respiratory failure with hypoxia: (3) CVA (cerebral vascular accident): Permanent Problem Comments: Initial CVA 2011, has has multiple ischemic multiple vascular territory strokes, including vertebrobasilar artery thalamic stroke, left pontine stroke; left hemiparesis, difficulty communicating in conversation, 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 (4) Acute kidney injury: (5) Diabetes mellitus, type II: Permanent Problem Comments: a1c 10/2020 12.7 (6) Neurogenic bladder: Permanent Problem Comments: suprapubic catheter (7) Status post cystoscopy with ureteral stent placement: Permanent Problem Comments: 01/14/2023, bilateral stents placed by Dr Gama (8) Metabolic acidosis: (9) Acute pyelonephritis: (10) CKD (chronic kidney disease): (11) Goals of care, counseling/discussion: Reason for Visit Reason for Visit GENERAL WEAKNESS/ LLQ PAIN Summary Date and Time of Date of : 01/29/23 Time of : :33 Summary Summary: 58-year-old female with history of left-sided weakness, previous CVA, came in for UTI, she had bilateral ureteral stents placed by Dr. Gama in the past, her stents were exchanged by Dr. Gama, patient became septic and encephalopathic and aspirated which resulted in respiratory failure requiring mechanical ventilator and intubation, due to sepsis she suffered from ATN requiring hemodialysis, patient was not able to follow commands despite being on minimal ventilator settings, sedations were turned off for about 30 hours however she was not able to follow commands at all, family decided to pursue hospice care and terminally extubate her, Patient was being treated for MRSA pneumonia, urine culture showing Proteus and gram-negative rods for which she was on meropenem, fluconazole, her sacral ulcer also got worse and expanded in dimensions, she carried guarded prognosis Additional Data Confirmation of as documented by pronouncing clinician: no pulse, no respirations, no heart sounds and pupils fixed and dilated Family: at bedside Additional persons at bedside: nursing staff Attending/PCP notified?: I am attending Was code activated?: No Autopsy requested?: No Advance directives?: No Hospice patient?: Yes Discharge Plan Discharge Patient Disposition: At Medical Facility Condition: Stable Prescriptions: No Action methenamine hippurate [Hiprex] 1 gram tablet 1 g PO BID@07,19 escitalopram oxalate 20 mg tablet 20 mg PO DAILY@07 solifenacin [Vesicare] 5 mg tablet 5 mg PO DAILY@07 topiramate [Topamax] 100 mg tablet 100 mg PO DAILY@07 bisacodyl 10 mg suppository 10 mg LA DAILY PRN (Reason: Constipation) Lantus Solostar U-100 Insulin 100 unit/mL (3 mL) insulin pen 25 unit SUBCUT BEDTIME@19 hydrocodone-acetaminophen 5-325 mg tablet 1 tab PO Q4H PRN (Reason: Pain) cyclobenzaprine 10 mg tablet 10 mg PO Q8H PRN (Reason: muscle spasms) (DME) blood-glucose meter [Accu-Chek Gaby Plus Meter] Misc See Rx Instructions .ROUTE .MEDSUPPLY Qty: 1 0RF Rx Instructions: As directed (DME) Accu-Chek Gaby Plus test strp Strip See Rx Instructions .ROUTE .MEDSUPPLY Qty: 10 0RF Rx Instructions: As directed (DME) lancets [Accu-Chek Multiclix Lancet] Misc See Rx Instructions .ROUTE .MEDSUPPLY Qty: 100 0RF Rx Instructions: As directed metoprolol succinate 200 mg tablet extended release 24 hr 200 mg PO DAILY@07 clopidogrel 75 mg Tablet 75 mg PO DAILY@07 amlodipine 10 mg Tablet 10 mg PO DAILY@07 hydroxyzine HCl 25 mg tablet 25 mg PO Q8H PRN (Reason: Itching) fluconazole 150 mg tablet 150 mg PO DAILY pravastatin 80 mg Tablet 80 mg PO DAILY@19 Enema Disposable 19-7 gram/118 mL Enema 118 ml LA DAILY PRN (Reason: Constipation) Januvia 25 mg tablet 25 mg PO DAILY@07 acetaminophen 650 mg Suppository 650 mg LA Q6H PRN (Reason: pain/fever) Discharge Orders: Discharge Order (Routine); Ordered 01/24/23 Ordered By: Osorio Gama Referrals: Vu Neil Jr, MD [Primary Care Provider] - Probable Cause of Probable cause of : Cardiac arrest DS Attestations Time Spent in /Discharge Care*: less than 30 min Quality - AMI: AMI present?: No Quality - Stroke: CVA present?: No Quality - VTE: VTE present?: No Coding Level of Care Code Acute Code for Chg Fwd Diagnoses Acute encephalopathy G93.40 Acute respiratory failure with hypoxia J96.01 CVA (cerebral vascular accident) I63.9 Acute kidney injury N17.9 Diabetes mellitus, type II E11.9 Neurogenic bladder N31.9 Status post cystoscopy with ureteral stent placement Z96.0 Metabolic acidosis E87.20 Acute pyelonephritis N10 CKD (chronic kidney disease) N18.9 Goals of care, counseling/discussion Z71.89
--- NOTE | 2023-01-29 03:12 | PC.NURSE ---
Patient ECG presented asystole @0233. Strip was printed and patient auscultated by this nurse as well as Iza C[place]. Patient's next of kin and sister were notified. [facility] call and report given to Chantel with Referral # [id number]. Body will be held until [facility] releases and request to not call home was received.
--- NOTE | 2023-01-29 04:52 | PC.NURSE ---
Chantel from [facility] called and patient has been approved for donation by [facility] and family. Fitness Trainer notified. Post mortem care preformed and [place] has been [place] [facility] [place]
== END 2023-01-29 04:00 | disposition hospice, home (50) | DRG 659 ==
LOC: ER 14:07 → MEDSURG 17:55 → ICU 01-23 07:21
PROVIDERS: Family Medicine; Hospitalist; Internal Medicine; Internal Medicine Pulmonary Disease; Physician Assistant; Urology; Admitting Provider Hospitalist; Emergency Provider Family Medicine; PCP Family Medicine; Visit Provider Internal Medicine
PROC: 0TJB8ZZ Inspection of Bladder, Via Natural or Artificial Opening Endoscopic (ICD-10-PCS; CPT 52000; principal; 2023-01-25 10:00)
PROC: 0T788DZ Dilation of Bilateral Ureters with Intraluminal Device, Via Natural or Artificial Opening Endoscopic (ICD-10-PCS; 2023-01-25 10:00)
DX: N10 Acute pyelonephritis (principal); A41.9 Sepsis, unspecified organism; L89.153 Pressure ulcer of sacral region, stage 3; J69.0 Pneumonitis due to inhalation of food and vomit; J96.01 Acute respiratory failure with hypoxia; J15.212 Pneumonia due to Methicillin resistant Staphylococcus aureus; I46.9 Cardiac arrest, cause unspecified; G93.40 Encephalopathy, unspecified; E87.20 Acidosis, unspecified; I69.954 Hemiplegia and hemiparesis following unspecified cerebrovascular disease affecting left non-dominant side; E87.1 Hypo-osmolality and hyponatremia; N39.0 Urinary tract infection, site not specified; N17.0 Acute kidney failure with tubular necrosis; E11.65 Type 2 diabetes mellitus with hyperglycemia; E11.22 Type 2 diabetes mellitus with diabetic chronic kidney disease; I12.9 Hypertensive chronic kidney disease with stage 1 through stage 4 chronic kidney disease, or unspecified chronic kidney disease; N18.32 Chronic kidney disease, stage 3b; N31.9 Neuromuscular dysfunction of bladder, unspecified; N13.1 Hydronephrosis with ureteral stricture, not elsewhere classified; Z51.5 Encounter for palliative care; L89.151 Pressure ulcer of sacral region, stage 1; Z96.0 Presence of urogenital implants; F32.A Depression, unspecified; H35.30 Unspecified macular degeneration; Z74.01 Bed confinement status; I95.9 Hypotension, unspecified; E78.5 Hyperlipidemia, unspecified; E86.0 Dehydration; E66.9 Obesity, unspecified; Z68.35 Body mass index [BMI] 35.0-35.9, adult; B96.4 Proteus (mirabilis) (morganii) as the cause of diseases classified elsewhere
CPT/HCPCS: 12345; 31500; 31622; 36415; 36416; 36569; 36600; 71045; 71275; 74176; 76770; 80048; 80051; 80053; 80202; 80503; 81001; 82009; 82330; 82550; 82803; 82805; 82962; 83605; 83735; 83880; 84100; 84145; 84484; 85025; 85362; 85378; 85384; 85610; 85730; 86140; 86705; 86706; 86710; 86803; 87040; 87070; 87077; 87086; 87186; 87205; 87340; 87486; 87581; 87633; 87635; 87641; 87804; 89050; 90935; 93005; 93306; 93970; 94002; 94003; 94799; 96365; 96372; 96375; 96376; 99285; A4570; C1751; C2625; C9113; J0330; J0696; J1170; J1450; J1644; J1815; J1940; J2185; J2250; J2270; J2543; J2704; J2997; J3010; J3370; J3480; J3490; J7030; J7060; J7070; P9047; Q3014; Q9967